=== PATIENT | female | born 1975 | race Caucasian/White ===

== ENCOUNTER 2017-06-29 18:26 | Emergency (ER) | payer MEDICAID, SELFPAY ==
[2017-06-29 18:26] VITALS: BP 138/113; PULSE 111; RESP 18; TEMP 37; O2SAT 98; BMI 34.5
[2017-06-29] MEDS: 0.9% Normal Saline 1,000 ML 999 ML IV (21:43)
[2017-06-29] MEDS: Ketorolac 30 MG/ML Syringe IV (21:43)
[2017-06-29] MEDS: DiphenhydrAMINE 25 MG Capsule 50 MG PO (21:43)
[2017-06-29] MEDS: proCHLORPERazine 10 MG/2 ML Vial IV (21:43)
[2017-06-29 22:02] VITALS: BP 132/84; PULSE 83; RESP 18; O2SAT 96
--- NOTE | 2017-06-29 22:16 | ED.VISSUMM ---
- ER Visit Summary Date of Service: 06/29/17 Chief Complaint: Headache History of Present Illness: The patient is a 41 F patient presenting for evaluation secondary to headache. Patient states she has been dealing with chronic back and neck pain, and now it has extended into her head causing a migraine. She describes it as a throbbing generalized pain associated with photophobia was not helped by Imitrex or Excedrin or Motrin. Patient denies any fevers recent head injuries. Review of systems otherwise negative. Physical Examination: Vital signs: Within normal limits General: Well-nourished well-developed no acute distress Head: Normocephalic atraumatic, no temporal artery tenderness or vesicular rash noted. No sinus tenderness to percussion. Eyes: PERRLA, EOMI. Direct funduscopy shows no evidence of hemorrhage or papilledema. Neck: Supple, no lymphadenopathy, no JVD no meningismus. Negative Brudzinski, Kernig, jolt, and heel strike Cardiovascular: Heart regular rate and rhythm no murmurs Respiratory: Lung sounds clear to auscultation bilaterally no respiratory distress Abdomen: Soft, nontender Extremities: Nontender, no edema Skin: Normal color, no rash, no evidence of petechia Neuro: Alert and oriented ?4, cranial nerves II through XII intact, normal strength, sensation Test Results: None indicated Emergency Department Course and Treatment: Patient presented secondary to headache. She was treated with Compazine Benadryl and Toradol. She had significant symptomatic improvement on repeat evaluation. Patient was discharged with continued conservative management at home. Disposition: Discharge Impression: Migraine headache This note was generated with [employer] dictation software. It may contain incorrect words, spelling, and punctuation that were not noted in review of the chart prior to signing ED Disposition - Plan for ED Patient: Disposition: Home or Assisted Living Chief Complaint: Headache Diagnosis: Migraine Instructions: ED Headache Migraine Referrals: Dionicio Armijo MD [Primary Care Provider] - As Needed
[2017-06-29 23:01] VITALS: PULSE 76; RESP 16; O2SAT 98
== END 2017-06-29 23:03 | disposition home or self-care (01) ==
PROVIDERS: Emergency Provider Emergency Medicine; Family Provider Family Medicine; PCP Family Medicine
DX: G43.909 Migraine, unspecified, not intractable, without status migrainosus (principal); M54.2 Cervicalgia; M54.9 Dorsalgia, unspecified; G89.29 Other chronic pain; Z79.899 Other long term (current) drug therapy
CPT/HCPCS: 96374; 96375; 99283; J7030; A4216

== ENCOUNTER 2017-07-19 09:19 | Emergency (ER) | payer MEDICAID, SELFPAY ==
[2017-07-19 09:20] VITALS: BP 89/55; PULSE 108; RESP 32; TEMP 36.3; O2SAT 98; BMI 38.9
--- NOTE | 2017-07-19 09:38 | RAD_ITS ---
STUDY: X-RAY CHEST REASON FOR EXAM: Female, 41 years old. Several day history of cough, fever and shortness of breath. TECHNIQUE: AP and lateral views of the chest. COMPARISON: Comparison is made with prior study dated November 01, 2016. FINDINGS: EKG electrodes are seen. The lungs are clear and expanded. There is no demonstrated pleural abnormality. Normal size heart. Normal mediastinum and cindy. Normal visualized pulmonary arteries. Normal visualized aortic arch and descending thoracic aorta. There is demineralization of the osseous structures. Normal visualized ribs, clavicles, and shoulders. There is no demonstrated abnormality of the visualized soft tissue structures of the upper abdomen. RAD/Chest PA and Lateral IMPRESSION: No acute abnormality is present. Electronically Signed: Julio C Prasad MD at 11:00 EDT Tel [phone], Service support ,
[2017-07-19 09:47] VITALS: PULSE 89; RESP 20
[2017-07-19] MEDS: Ipratropium/Albuterol Sulfate 3 ML AMPUL.NEB INHALATION (09:47)
[2017-07-19 10:00] LABS: Absolute Lymphocyte Count 1.95 X10^3/ul (0.83-4.51); Absolute Neutrophil Count 1.8 X10^3/uL (2.0-7.7); Basophil# 0.02 X10^3/uL; Basophil% 0.5 % (0-1); Eosinophil# 0.01 X10^3/uL; Eosinophils% 0.2 % (0-5); Hematocrit 40.3 % (37-47); Hemoglobin 13.3 g/dl (12.0-15.0); Lymphocyte # 1.95 X10^3/ul (4.0); Lymphocyte % 48.1 % (19-41); Mean Corpuscular Hgb 30.8 pg (27.0-32.0); Mean Corpuscular Volume 93.3 fL (81-99); Monocyte# 0.27 X10^3/uL; Monocyte% 6.7 % (0-10); Neutrophil % 44.5 % (47-70); Platelet Count 244 K/mm3 (150-450); RBC Distribution Width CV 14.3 % (11.6-14.6); RBC Distribution Width SD 48.8 fl (35.1-43.9); Red Blood Count 4.32 M/mm3 (4.2-5.4); White Blood Count 4.1 K/mm3 (4.4-11.0)
[2017-07-19 10:01] LABS: POSITIVE COUNT NO; POSITIVE DIFFERENTIAL NO; POSITIVE MORPHOLOGY NO
[2017-07-19] MEDS: 0.9% Normal Saline 1,000 ML 1000 ML IV (10:06)
[2017-07-19] MEDS: Ondansetron 4 MG/2 ML Vial IV (10:07)
[2017-07-19 10:09] VITALS: O2SAT 96
[2017-07-19 10:12] LABS: Anion Gap 13 (5-15); BUN 18 mg/dL (7-18); BUN/Creat Ratio 24.6 RATIO (10-20); Chloride 109 mmol/L (98-107); Creatinine, Serum 0.73 mg/dL (0.55-1.02); EST Glomerular Filtration Rate 94 mL/min (>60); Est Glom Filt Rate - Afr Amer 113 mL/min (>60); Estimated Creatinine Clearance 104.37 ml/min; Glucose 124 mg/dL (74-106); Sodium Level 141 mmol/L (136-145)
--- NOTE | 2017-07-19 10:28 | ED.RN ---
LACTIC ACID 2.[address] LAB. DR COLE AWARE
[2017-07-19 10:29] LABS: Lactic Acid 2.4 mmol/L (0.4-2.0)
--- NOTE | 2017-07-19 11:01 | ED.DCSUM_ITS ---
- ER Visit Summary Date of Service: 07/19/17 Chief Complaint: Cough, vomiting and diarrhea History of Present Illness: The patient is a [address] Armijo. She reports that she became ill 2 days ago. She has had subjective fever and chills. She has a sore throat that is 8 out of 10 severity. She has a cough is productive of yellowish green sputum without blood. She reports that she is mildly short of breath. She also reports that she has had vomiting and diarrhea. She reports that she is vomited approximately 12 times per day without blood in her emesis. She has had diarrhea approximately 12 times a day without blood in her stools or black tarry stools. States that she has a headache and generalized weakness as well. Physical Examination: Vitals: 97.4, 89/55, 108, 32, 90% on room air which is not hypoxic. General: Well-nourished and well-developed. Head: Normocephalic atraumatic. Neck: Supple, no lymphadenopathy. No JVD. Nontender. Cardiovascular: Tachycardic regular rhythm. No murmurs. Respiratory: Mild respiratory distress with tachypnea. Minimal and expiratory wheezing. Abdominal: Soft, mild diffuse tenderness to palpation, nondistended, normal bowel sounds. No guarding, rebound, or peritoneal signs. Back: Nontender. Extremities: Nontender, no edema. Skin: Normal color, no rash. Neurologic: Alert and oriented ?3. Cranial nerves II through XII are intact. Normal strength and sensation. Psych: Normal affect. Test Results: CBC is remarkable for a white count of 4.1 with 45 segmented neutrophils and 48 lymphocytes. Chem-7 is marked for potassium at 3.0, chloride 109, CO2 of 19, glucose of 124. Influenza was negative. Lactic acid is 2.4. Chest x-ray is normal. Emergency Department Course and Treatment: Patient was given 2 L of normal saline. She was given albuterol and Atrovent aerosol. She was given morphine and Zofran IV. She was given K-Dur p.o. She has had no vomiting or diarrhea while here. She was given a dose of Kenalog IM and Tessalon Perles p.o. Treatment Plan: Patient will be discharged with Zofran and Tessalon Perles. Instructed to follow-up with Dr. Armijo in 1-2 days if not improving. Return to the emergency department for any worsening symptoms. Disposition: To home in improved and stable condition. Impression:. URI. 2. Vomiting/diarrhea. 3. Hypokalemia. This note was generated with [email or web address] dictation software. It may contain incorrect words, spelling, and punctuation that were not noted in review of the chart prior to signing ED Disposition - Plan for ED Patient: Chief Complaint: Shortness of Breath Instructions: ED Upper Resp Infec No Abx Tx, ED Vomiting Diarrhea Nonspecific Ad Prescriptions: Ondansetron [Zofran Odt] 4 mg PO Q8H PRN PRN #10 tablet PRN Reason: Nausea Benzonatate [Tessalon Perle] 200 mg PO TID PRN PRN #20 capsule PRN Reason: Cough Referrals: Dionicio Armijo MD [Primary Care Provider] - 1-2 Days if not improving
[2017-07-19 11:37] VITALS: BP 128/78; PULSE 65; RESP 14; O2SAT 98
[2017-07-19] MEDS: Triamcinolone Acetonide 40 MG/ML Vial 80 MG IM (11:50)
[2017-07-19] MEDS: Benzonatate 100 MG Capsule 200 MG PO (11:50)
[2017-07-19 12:17] VITALS: BP 124/85; PULSE 74; RESP 16; O2SAT 98
[2017-07-19 13:56] LABS: Reflex Lactate? Y
== END 2017-07-19 12:18 | disposition home or self-care (01) ==
PROVIDERS: Emergency Provider Emergency Medicine; Family Provider Family Medicine; PCP Family Medicine
DX: J06.9 Acute upper respiratory infection, unspecified (principal); R11.2 Nausea with vomiting, unspecified; R19.7 Diarrhea, unspecified; E87.6 Hypokalemia; Z72.0 Tobacco use; Z79.899 Other long term (current) drug therapy
CPT/HCPCS: 71046; 80048; 83605; 85025; 87804; 94640; 96361; 96372; 96374; 96375; 99285; J7030; A4216; J2405

== ENCOUNTER 2017-09-21 11:04 | Emergency (ER) | payer MEDICAID, SELFPAY ==
[2017-09-21 11:04] VITALS: BP 129/87; PULSE 93; RESP 15; TEMP 35.7; O2SAT 99; BMI 31.4
--- NOTE | 2017-09-21 11:51 | ED.DCSUM_ITS ---
- ER Visit Summary Date of Service: 09/21/17 Chief Complaint: Headache History of Present Illness: The patient is a 42 F with a history of migraines. Patient states she developed mild headache last evening on the right eye that progressed to the right side of her head today. This is typical pattern for her migraines. Patient states she usually takes Imitrex but she is currently out of the medication. She denies any recent URI symptoms or head injury. Physical Examination: Vital signs are unremarkable. Patient's lying in a darkened room. She is in no acute distress. Head neck examination reveals pupils to be equal and reactive. She has no meningismus. Heart is regular rate and rhythm. Lung sounds are clear. Abdomen is soft and nontender. Neuro exam reveals normal strength and sensation throughout. Test Results: [] Emergency Department Course and Treatment: She was given subcu Imitrex. On repeat evaluation headache is improved but not resolved. She is requesting a second dose of Imitrex. This will be provided along with a prescription for 10 tabs of Imitrex. She is to follow-up with her PCP regarding further prescriptions for this medication. Treatment Plan: [] Disposition: Discharge Impression: Migraine, improved This note was generated with [employer] dictation software. It may contain incorrect words, spelling, and punctuation that were not noted in review of the chart prior to signing ED Disposition - Plan for ED Patient: Disposition: Home or Assisted Living Chief Complaint: Headache Instructions: ED Headache Migraine Prescriptions: Sumatriptan Succinate [Imitrex] 100 mg PO BID PRN PRN #10 tablet PRN Reason: Migraine Symptoms Referrals: Dionicio Armijo MD [Primary Care Provider] - 3-5 Days if not improving
[2017-09-21] MEDS: SUMAtriptan 6 MG/0.5 ML Vial SC ×2 (11:58→14:07)
--- NOTE | 2017-09-21 14:07 | ED.DEP ---
ED Disposition - Plan for ED Patient: Disposition: Home or Assisted Living Chief Complaint: Headache Instructions: ED Headache Migraine Prescriptions: Sumatriptan Succinate [Imitrex] 100 mg PO BID PRN PRN #10 tablet PRN Reason: Migraine Symptoms Referrals: Dionicio Armijo MD [Primary Care Provider] - 3-5 Days if not improving
[2017-09-21 14:32] VITALS: BP 133/83; PULSE 81; RESP 16; O2SAT 100
== END 2017-09-21 14:32 | disposition home or self-care (01) ==
PROVIDERS: Emergency Provider Emergency Medicine; Family Provider Family Medicine; PCP Family Medicine
DX: G43.909 Migraine, unspecified, not intractable, without status migrainosus (principal); I10 Essential (primary) hypertension; Z86.711 Personal history of pulmonary embolism; Z86.718 Personal history of other venous thrombosis and embolism; Z72.0 Tobacco use
CPT/HCPCS: 96372; 99282; J3030

== ENCOUNTER 2017-10-24 01:18 | Emergency (ER) | payer MEDICAID, SELFPAY ==
[2017-10-24 01:19] VITALS: BP 139/88; PULSE 106; RESP 17; TEMP 36.9; O2SAT 99; BMI 42.0
--- NOTE | 2017-10-24 01:45 | RAD_ITS ---
STUDY: X-RAY - RIGHT HAND REASON FOR EXAM: Female, 42 years old. Dogbite TECHNIQUE: 3 view(s) of the hand. COMPARISON: None. FINDINGS: The second, third, and fourth digits are obscured by rings. No fractures are seen. Joint spaces are intact. RAD/Hand Min 3 Views IMPRESSION: No acute osseous injury is visible. Electronically Signed: Dionicio Tamez MD at 3:21 EDT Tel , Service support ,
--- NOTE | 2017-10-24 02:08 | ED.RN ---
this rn gives pt dopg bite form to fill out, and pt is educated on dog bite form. pt reports she refuses to fill out form. kat jamil notified.
--- NOTE | 2017-10-24 02:15 | ED.VISSUMM ---
- ER Visit Summary Date of Service: 10/24/17 Chief Complaint: Dog bite right hand History of Present Illness: The patient is a 42 F that is Right hand dominant. No significant past medical history. Patient playing with her dog when the dog jumped up to grab something out of the ear and actually bit her in the right hand. This occurred around 330 Wednesday afternoon. She went to work. Today she is complaining of more swelling. And bruising. She denies any fever or discharge from the wound. Her tetanus is up-to-date. Physical Examination: Well-appearing middle-age female. Vital signs are stable afebrile. Exam is normal except right hand dorsum is bruising mild swelling and a very small less than a centimeter laceration from a dog bite. She has tenderness over the dorsum of the hand. There is no gross bony deformity. She has full flexion-extension of the right hand is able to open and close her hand. There is no signs of extensor tendon laceration. Nor any signs of a fracture. Right hand is neurovascular intact with cap refill, touch sensation and radial pulse. There is no lymphangitic streaking. No cellulitis or redness. No warmth. Test Results: X-ray of the right hand shows no acute abnormality. No fracture. Emergency Department Course and Treatment: We are going to attempt to get the patient's rings off she adamantly refuses to have any of the rings cut off since a personal emotional value to her. She will be placed on Keflex 4 times a day for 5 days. She reportedly has a penicillin anaphylactic allergy so I will not place her on penicillin. Ice and elevate. Watch for signs of infection. Motrin and limited [place] for pain. [place] given here and a prescription for 10 no refill. Treatment Plan: Ice and elevate. Motrin. [place] for pain. Disposition: Discharge Impression: Acute right hand dog bite with soft tissue injury and bruising This note was generated with [employer] dictation software. It may contain incorrect words, spelling, and punctuation that were not noted in review of the chart prior to signing ED Disposition - Plan for ED Patient: Chief Complaint: Bite Referrals: Dionicio Armijo MD [Primary Care Provider] -
--- NOTE | 2017-10-24 02:18 | ED.DEP ---
ED Disposition - Plan for ED Patient: Disposition: Home or Assisted Living Chief Complaint: Bite Instructions: ED Bite Dog Prescriptions: Cephalexin [Keflex] 500 mg PO Q6 #20 cap Hydrocodone/Acetaminophen [[place] 5-325 Tablet] 1 - 2 ea PO 4X/DAY PRN PRN 3 Days #12 tab PRN Reason: Pain Referrals: Dionicio Armijo MD [Primary Care Provider] - As Needed
[2017-10-24] MEDS: HYDROcodone Bitartrate/Apap 5/325 Tablet PO (02:26)
[2017-10-24] MEDS: Cephalexin 250 MG Capsule 500 MG PO (02:26)
[2017-10-24 02:30] VITALS: BP 130/80; PULSE 82; RESP 16; O2SAT 97
== END 2017-10-24 02:31 | disposition home or self-care (01) ==
PROVIDERS: Emergency Provider Emergency Medicine; Family Provider Family Medicine; PCP Family Medicine
DX: S61.451A Open bite of right hand, initial encounter (principal); M79.89 Other specified soft tissue disorders; W54.0XXA Bitten by dog, initial encounter; Y93.9 Activity, unspecified; Y92.9 Unspecified place or not applicable; Y99.9 Unspecified external cause status; Z72.0 Tobacco use
CPT/HCPCS: 73130; 99283

== ENCOUNTER 2017-12-12 01:17 | Emergency (ER) | payer MEDICAID, SELFPAY ==
[2017-12-12 01:17] VITALS: BP 130/81; PULSE 100; RESP 18; TEMP 37.2; O2SAT 99; BMI 33.1
--- NOTE | 2017-12-12 02:00 | ED.VISSUMM ---
- ER Visit Summary Date of Service: 12/12/17 Chief Complaint: [[place], neck pain] History of Present Illness: The patient is a 42 F [patient presents the emergency department with neck pain. She describes as bilateral muscle tightness. She states it started yesterday morning after she slept with her neck twisted sideways on the couch. She subsequently developed a left-sided headache and migraine and had one episode of vomiting this evening. No numbness or tingling no weakness no fevers or chills she is out of her Imitrex.] Physical Examination: [] Afebrile vital signs within acceptable limits WN WD NAD PERRL EOMI MMM NECK supple and nontender, no masses Normal strength and sensation of the upper extremities RRR no murmur rub or gallop, no peripheral edema, symmetric radial pulses CTAB no respiratory distress ABDOMEN is soft and nontender, normal bowel sounds, no distension, no rebound or guarding SKIN is warm and dry no rashes Alert and Oriented x3, CN II-XII in tact, no motor or sensory deficits, gait normal No lymphadenopathy Test Results: [] Emergency Department Course and Treatment: [Patient was given Toradol Valium and Zofran. Patient did feel improved but continued to have a headache. She was given in [place]. She will be discharged home with a prescription for tizanidine. At this time I do think she is safe for discharge and was encouraged to follow-up with her primary care provider. She was given precautions for which to return.] Treatment Plan: [] Disposition: [Discharge] Impression: [Migraine, neck spasm] This note was generated with [employer] dictation software. It may contain incorrect words, spelling, and punctuation that were not noted in review of the chart prior to signing ED Disposition - Plan for ED Patient: Chief Complaint: Headache Referrals: Dionicio Armijo MD [Primary Care Provider] -
[2017-12-12] MEDS: Ondansetron ODT 4 MG Tablet PO (02:05)
[2017-12-12] MEDS: Ketorolac 60 MG/2 ML Vial IM (02:05)
[2017-12-12] MEDS: diazePAM 2 MG Tablet 4 MG PO (02:21)
--- NOTE | 2017-12-12 02:45 | ED.DEP ---
ED Disposition - Plan for ED Patient: Chief Complaint: Headache Instructions: ED Headache Migraine, ED Spasm Neck No Injury Prescriptions: Tizanidine HCl [Zanaflex] 4 mg PO Q8H PRN PRN #6 tablet PRN Reason: Muscle Spasm Referrals: Dionicio Armijo MD [Primary Care Provider] - 3-5 Days
[2017-12-12] MEDS: HYDROcodone Bitartrate/Apap 5/325 Tablet PO (02:53)
[2017-12-12 02:55] VITALS: BP 120/84; BP 130/74; PULSE 78; PULSE 93; RESP 14; RESP 16; O2SAT 97; O2SAT 98
== END 2017-12-12 03:00 | disposition home or self-care (01) ==
PROVIDERS: Emergency Provider Emergency Medicine; Family Provider Family Medicine; PCP Family Medicine
DX: G43.909 Migraine, unspecified, not intractable, without status migrainosus (principal); M62.838 Other muscle spasm; M19.90 Unspecified osteoarthritis, unspecified site; M54.9 Dorsalgia, unspecified; G89.29 Other chronic pain; E66.9 Obesity, unspecified; Z72.0 Tobacco use; Z79.899 Other long term (current) drug therapy
CPT/HCPCS: 96372; 99283

== ENCOUNTER 2018-02-20 01:13 | Emergency (ER) | payer MEDICAID, SELFPAY ==
[2018-02-20 01:16] VITALS: BP 146/99; PULSE 73; RESP 18; TEMP 36.9; O2SAT 99; BMI 30.9
--- NOTE | 2018-02-20 01:40 | ED.DCSUM_ITS ---
- ER Visit Summary Date of Service: 02/20/18 Chief Complaint: [] Nausea vomiting and diarrhea History of Present Illness: The patient is a 42 F with the above for the last 2 days. She had 30 episodes of vomiting per patient. She had diarrhea every 20 minutes for last couple days. No sick contacts. No bad food exposures. No recent antibiotics. She has intermittent abdominal cramps. She was sitting on the toilet having diarrhea at work this evening and had a syncopal episode. She thinks she vagal. No injury. She denies any significant abdominal pain but is having cramps. No home treatment. She said she is keeping up with water. She has decreased food intake Physical Examination: [] Vital signs reviewed General: Well-nourished well-developed Head: Normocephalic atraumatic Eyes: Pupils equal round and reactive to light extraocular movements intact ENT: TMs clear no hemotympanum no trauma Neck: Nontender full range of motion Cardiovascular: Regular rate rhythm no murmurs normal S1-S2 Respiratory: No distress clear to auscultation bilaterally chest nontender Abdomen: Soft nontender nondistended normal bowel sounds no masses Back: Nontender no CVA tenderness Extremities: Nontender active range of motion ?4 extremities no trauma Skin: Normal color no trauma Neuro alert oriented cranial nerves II through XII intact normal strength sensation reflexes Test Results: [] Emergency Department Course and Treatment: [] Patient declined IV fluids or IV. Electrolytes obtained. Given oral Zofran intramuscular Toradol and oral Imodium. [place] much better after treatment. Chemistries normal except chloride 113. She will be discharged with Zofran. Will use [id number] Imodium and ibuprofen. She is resting comfortably. I think she has gastroenteritis and I do not think she needs further lab work or imaging. She will return if she worsens Treatment Plan: [] Disposition: [] Impression: [] Nausea vomiting diarrhea with abdominal cramping This note was generated with [employer] dictation software. It may contain incorrect words, spelling, and punctuation that were not noted in review of the chart prior to signing ED Disposition - Plan for ED Patient: Chief Complaint: Nausea/Vomiting/Diarrhea Referrals: Dionicio Armijo MD [Primary Care Provider] -
[2018-02-20] MEDS: Ketorolac 60 MG/2 ML Vial IM (01:51)
[2018-02-20] MEDS: Ondansetron ODT 4 MG Tablet 8 MG PO (01:51)
[2018-02-20 02:17] LABS: Anion Gap 7 (5-15); BUN 18 mg/dL (7-18); BUN/Creat Ratio 23.1 RATIO (10-20); Calcium,Total 8.8 mg/dL (8.5-10.1); Chloride 113 mmol/L (98-107); Creatinine, Serum 0.78 mg/dL (0.55-1.02); EST Glomerular Filtration Rate 87 mL/min (>60); Est Glom Filt Rate - Afr Amer 105 mL/min (>60); Estimated Creatinine Clearance 96.71 ml/min; Glucose 109 mg/dL (74-106); Potassium 3.6 mmol/L (3.5-5.1); Sodium Level 143 mmol/L (136-145)
[2018-02-20] MEDS: Loperamide 2 MG Capsule 4 MG PO (02:19)
--- NOTE | 2018-02-20 02:32 | ED.DEP ---
ED Disposition - Plan for ED Patient: Chief Complaint: Nausea/Vomiting/Diarrhea Instructions: ED Diet Vomiting Diarrhea Prescriptions: Ondansetron [Zofran Odt] 4 mg PO Q8H PRN PRN #10 tab PRN Reason: Nausea Referrals: Dionicio Armijo MD [Primary Care Provider] -
== END 2018-02-20 02:47 | disposition home or self-care (01) ==
PROVIDERS: Emergency Provider Emergency Medicine; Family Provider Family Medicine; PCP Family Medicine
DX: R11.2 Nausea with vomiting, unspecified (principal); R19.7 Diarrhea, unspecified; R55 Syncope and collapse; E66.9 Obesity, unspecified; Z72.0 Tobacco use; Z86.718 Personal history of other venous thrombosis and embolism; Z86.711 Personal history of pulmonary embolism
CPT/HCPCS: 36415; 80048; 96372; 99283

== ENCOUNTER 2018-03-31 09:46 | Emergency (ER) | payer MEDICAID, SELFPAY ==
[2018-03-31 09:47] VITALS: BP 137/84; PULSE 93; RESP 20; TEMP 36.4; O2SAT 100; BMI 30.9
[2018-03-31] MEDS: Ondansetron ODT 4 MG Tablet PO (10:29)
[2018-03-31] MEDS: Ketorolac 60 MG/2 ML Vial IM (10:29)
[2018-03-31] MEDS: SUMAtriptan 6 MG/0.5 ML Vial SC (10:30)
[2018-03-31] MEDS: morphine 8 MG/ML Syringe SC (10:30)
--- NOTE | 2018-03-31 10:34 | ED.DEP ---
ED Disposition - Plan for ED Patient: Chief Complaint: Back Instructions: ED Spasm Back No Trauma Prescriptions: Naproxen [Naprosyn] 500 mg PO BID PRN #20 tab Cyclobenzaprine [Flexeril] 10 mg PO TID PRN #20 tab PRN Reason: Muscle Spasm Referrals: Dionicio Armijo MD [Primary Care Provider] -
--- NOTE | 2018-03-31 10:35 | ED.DCSUM_ITS ---
- ER Visit Summary Date of Service: 03/31/18 Chief Complaint: [] Lumbar back pain for days history of same History of Present Illness: The patient is a 42 F [] has a long history of lumbar back disorder she indicates she had prior previous evaluations by pain management lumbar back injections MRIs physical therapy etc., she indicates she is suffered from the condition to where she does not wish to be under pain management prefers to just manage things as needed. She has no other complaints. She has no fever no cough no trouble with bowel bladder habits. She indicates at work due to the holiday she is been very busy lifting boxes bending over and that she believes exacerbate her lumbar back condition she has no meds at home, in addition she has history of migraine headache disorder and she is suffering from a migraine usually takes Imitrex, because she had no medicines at home she came to the emergency Physical Examination: [] 137/84, General, no distress resting comfortably HEENT is generally unremarkable The neck is supple no adenopathy Cardiovascular, regular rate and rhythm Lungs, clear bilateral Abdomen, soft nontender Back there is a vague diffuse discomfort that is nonfocal, there is no contusion or bruising or CVA tenderness she denies any bowel or bladder complaints numbness weakness or paresthesias Extremities, no clubbing cyanosis or edema Neurologic, awake alert answering questions appropriately moving all 4 extremities, she is able to stand she can walk she can heel raise toe raise knee bend there is no signs of motor or sensory deficit abnormality and she assures me this is the chronic pain she suffered long-term, there is no signs of cauda equina or any other acute condition Test Results: [] Emergency Department Course and Treatment: [] Discussed the broad differential the patient assures me she simply wants pain control this is typical of her usual back condition to be exacerbated by the heavy physical work she is been doing at work, at this time she is treated with morphine Toradol, she is also been asked to be given Imitrex which usually takes for her headaches, she will be discharged on Naprosyn and Flexeril she replaced off work and follow with her family doctor for further management return for change in symptoms Treatment Plan: [] Disposition: [] Home stable Impression: [] Acute recurrent lumbar back pain This note was generated with [employer] software. It may contain incorrect words, spelling, and punctuation that were not noted in review of the chart prior to signing ED Disposition - Plan for ED Patient: Chief Complaint: Back Referrals: Dionicio Armijo MD [Primary Care Provider] -
[2018-03-31 11:12] VITALS: BP 143/95; PULSE 87; RESP 16; O2SAT 99
== END 2018-03-31 11:13 | disposition home or self-care (01) ==
LOC: ED 10:39
PROVIDERS: Emergency Provider Emergency Medicine; Family Provider Family Medicine; PCP Family Medicine
DX: M54.5 Low back pain (principal); G43.909 Migraine, unspecified, not intractable, without status migrainosus; Z79.899 Other long term (current) drug therapy
CPT/HCPCS: 96372; 99282; J3030

== ENCOUNTER 2018-05-08 00:30 | Emergency (ER) | payer MEDICAID, SELFPAY ==
[2018-05-08 00:32] VITALS: BP 134/94; PULSE 114; RESP 18; TEMP 37.8; O2SAT 96; BMI 32.2
--- NOTE | 2018-05-08 00:57 | ED.DCSUM_ITS ---
- ER Visit Summary Date of Service: 05/08/18 Chief Complaint: [] Scalp burn History of Present Illness: The patient is a 42 F patient stated she burned her scalp while using hair dye approximately 5 days ago. She is having pain and itching to her scalp from the burn. She is using topical steroid with no r elief. She is unsure if that would help. She woke up the next day with the symptoms. It is continuous. It is located diffusely in her scalp. Current severity is mild. Worsened by touching. Relieved by nothing. The patient also states she has upper respiratory symptoms including mild nonproductive cough and sore throat. She has muscle aches. No sick contacts. Current severity is mild. Worsened by swallowing. No home treatment. ROS General: Denies fever, chills, sweats Eyes: Denies visual changes, blurred vision, double vision ENT: Positive sore throat and sore lymph nodes in her neck Cardiovascular: Denies chest pain, palpitations, heart racing Respiratory: Denies dyspnea, sputum, dyspnea on exertion, orthopnea,PND GI: Denies abdominal pain, nausea, vomiting, diarrhea, constipation, melena : Denies dysuria, hematuria, frequency Musculoskeletal: Denies myalgias, arthralgias, neck pain, back pain Skin: Chemical burn to scalp Neuro: Denies headache, weakness, paresthesia Psych: Denies depression, anxiety Endo: Denies polyuria, polydipsia, polyphagia Heme: Denies easy bruising, easy bleeding, lymphadenopathy Allergy: Denies hives, swelling Physical Examination: [] Vital signs reviewed General: Well-nourished well-developed Head: Normocephalic atraumatic Eyes: Pupils equal round and reactive to light extraocular movements intact ENT: TMs clear no hemotympanum no trauma. Mild pharyngeal erythema with 2+ tonsils no exudate. Neck: Nontender full range of motion Cardiovascular: Regular rate rhythm no murmurs normal S1-S2 Respiratory: No distress clear to auscultation bilaterally chest nontender Abdomen: Soft nontender nondistended normal bowel sounds no masses Back: Nontender no CVA tenderness Extremities: Nontender active range of motion ?4 extremities no trauma Skin: Mild chemical burn to the scalp. Worse on the right lateral side. No evidence of cellulitis. Neuro alert oriented cranial nerves II through XII intact normal strength s ensation reflexes Test Results: [] Emergency Department Course and Treatment: [] Patient given azithromycin and will continue this for her respiratory illness. She is allergic to penicillin so it should help her if she has strep throat. She was given Silvadene for her scalp. Given Tylenol as she has a low-grade temp. Treatment Plan: [] Disposition: [] Impression: [] Upper respiratory infection Pharyngitis Chemical burn to scalp This note was generated with [employer]ation software. It may contain incorrect words, spelling, and punctuation that were not noted in review of the chart prior to signing ED Disposition - Plan for ED Patient: Chief Complaint: Rash Referrals: Dionicio Armijo MD [Primary Care Provider] -
--- NOTE | 2018-05-08 00:57 | ED.DEP ---
ED Disposition - Plan for ED Patient: Disposition: Home or Assisted Living Chief Complaint: Rash Instructions: ED Burn Chemical Prescriptions: Azithromycin 250 mg PO DAILY 4 Days #4 tab Referrals: Dionicio Armijo MD [Primary Care Provider] -
[2018-05-08] MEDS: Azithromycin 250 MG Tablet 500 MG PO (01:10)
[2018-05-08] MEDS: Acetaminophen 500 MG Tablet 1000 MG PO (01:10)
[2018-05-08] MEDS: Silver Sulfadiazine 1% Crm 50 gm Bottle 1 APPLIC TOPICAL (01:11)
[2018-05-08 01:16] VITALS: BP 127/82; PULSE 95; RESP 16; O2SAT 100
== END 2018-05-08 01:18 | disposition home or self-care (01) ==
PROVIDERS: Emergency Provider Emergency Medicine; Family Provider Family Medicine; PCP Family Medicine
DX: J06.9 Acute upper respiratory infection, unspecified (principal); J02.9 Acute pharyngitis, unspecified; T49.4X1A Poisoning by keratolytics, keratoplastics, and other hair treatment drugs and preparations, accidental (unintentional), initial encounter; T20.45XA Corrosion of unspecified degree of scalp [any part], initial encounter; Y93.9 Activity, unspecified; Y92.9 Unspecified place or not applicable; G43.909 Migraine, unspecified, not intractable, without status migrainosus; Z87.01 Personal history of pneumonia (recurrent); Z86.718 Personal history of other venous thrombosis and embolism; Z86.711 Personal history of pulmonary embolism; Z72.0 Tobacco use
CPT/HCPCS: 99283

== ENCOUNTER 2018-08-10 11:27 | Emergency (ER) | payer MEDICAID, SELFPAY ==
[2018-08-10 11:29] VITALS: BP 156/92; PULSE 94; RESP 17; TEMP 36.8; O2SAT 100; BMI 32.3
--- NOTE | 2018-08-10 11:41 | ED.VISSUMM ---
- ER Visit Summary Date of Service: 08/10/18 Chief Complaint: Headache History of Present Illness: The patient is a 43 F with a headache. She has a history of migraines and muscle spasms. She said the pain started in her neck and back and is radiating to her head. This came on gradually. She is prescribed Imitrex and baclofen but could not fill those prescriptions due to some insurance issues. She has not taken anything for her symptoms. No new or different symptoms like trauma, change in mental status, or fever. Physical Examination: Afebrile and vital signs unremarkable. Patient is alert and oriented. Head and neck are atraumatic. Cranial nerves grossly intact. HEENT exam unremarkable. Strength and sensation normal. Nonfocal exam. Skin appears normal. Test Results: None indicated Emergency Department Course and Treatment: There is no indication for imaging or other diagnostic testing. I believe the patient is appropriate for symptomatic treatment. Imitrex has worked in the past. She would also like something for a muscle relaxant. She was also treated with Norflex. Patient had improvement of her symptoms and will be discharged for outpatient follow-up. Treatment Plan: As above Disposition: Discharge Impression: 1. Acute cephalgia This note was generated with [employer] dictation software. It may contain incorrect words, spelling, and punctuation that were not noted in review of the chart prior to signing ED Disposition - Plan for ED Patient: Instructions: ED Headache Migraine Referrals: Dionicio Armijo MD [Primary Care Provider] -
[2018-08-10] MEDS: SUMAtriptan 6 MG/0.5 ML Vial SC (11:48)
[2018-08-10] MEDS: Orphenadrine 60 MG/2 ML Ampul IM (11:48)
== END 2018-08-10 12:40 | disposition home or self-care (01) ==
LOC: ED 12:37
PROVIDERS: Emergency Provider Emergency Medicine; Family Provider Family Medicine; PCP Family Medicine
DX: R51 Headache (principal); M62.838 Other muscle spasm; Z72.0 Tobacco use
CPT/HCPCS: 96372; 99282; J3030

== ENCOUNTER 2018-08-11 17:16 | Emergency (ER) | payer MEDICAID, SELFPAY ==
[2018-08-10 11:29] VITALS: BMI 32.3
[2018-08-11 17:17] VITALS: BP 127/73; PULSE 89; RESP 17; TEMP 36.8; O2SAT 97; BMI 32.5
[2018-08-11 17:25] VITALS: BP 107/26; PULSE 81; RESP 16; O2SAT 99
--- NOTE | 2018-08-11 17:44 | CT_ITS ---
STUDY: CT ABDOMEN AND PELVIS WITHOUT CONTRAST REASON FOR EXAM: Female, 43 years old. Left flank pain. History of endometrial cancer. RADIATION DOSAGE (If Supplied By Facility): CTDIvol = ( 16.59 ) mGy, DLP = ( 986.31 ) mGycm TECHNIQUE: Transaxial images were obtained from the dome of the diaphragm to the symphysis pubis without oral contrast, and without intravenous contrast. Sagittal and coronal images were reconstructed. Individualized dose optimization techniques were used for this CT. COMPARISON: December 30, 2016. FINDINGS: The visualized lung bases are unremarkable. The visualized portions of the heart are within normal limits. Normal liver. Normal gallbladder and extrahepatic biliary system. Normal spleen. Normal pancreas. Normal bilateral adrenal glands. 2 mm calcification lower pole of the right kidney. Other 1 mm sized calcifications are also noted. There is no mass or hydronephrosis. Normal right ureter. There are two 3 mm nonobstructing calculi in lower pole calyces. A 1 mm calcification is seen in the mid kidney. There is no mass or hydronephrosis. Normal left ureter. Normal visualized stomach. Normal small intestine. Normal colon. The appendix is visualized and appears normal. Normal abdominal aorta. Normal inferior vena cava. Normal retroperitoneum. Normal urinary bladder. Status post hysterectomy. The vaginal cuff is unremarkable. No pelvic lymphadenopathy or mass. No free air or free fluid is seen within the peritoneal cavity. Normal abdominal wall. Normal osseous structures. CT/Abdomen/Pelvis without Cont IMPRESSION: Small bilateral renal calculi without evidence for obstruction. Otherwise normal CT of the abdomen and pelvis. Electronically Signed: Ruben Luis DO at 18:56 EDT Tel [phone], Service support ,
--- NOTE | 2018-08-11 17:47 | ED.DCSUM_ITS ---
- ER Visit Summary Date of Service: 08/11/18 Chief Complaint: Left flank pain History of Present Illness: The patient is a 43 F with left flank pain that came on suddenly today. Patient had similar symptoms in the past with kidney stones. She took some Aleve, but it did not help. Patient has urinary frequency and dysuria. No bleeding. BANKRUPTCY PARALEGAL symptoms. Nausea but no other GI symptoms. History of smoking. Physical Examination: Afebrile and vital signs unremarkable. Alert and martha ented. No acute distress. Heart regular. Lungs clear. Abdomen soft and nontender. Left CVA tender to palpation. Skin appears normal. Test Results: CT, labs, urine pending. Emergency Department Course and Treatment: Patient treated with Toradol, Zofran, fluids while awaiting results. CBC unremarkable. Potassium 3.4 and chloride 109. Urinalysis showed no sign of infection or bleeding. test was negative. CT showed small bilateral renal calculi but nothing obstructing. No other acute issues. Patient is appropriate for outpatient care. Prescription for naproxen and Zofran. Follow-up with urology as needed. Treatment Plan: As above Disposition: Discharge Impression: 1. Left flank pain This note was generated with [employer] dictation software. It may contain incorrect words, spelling, and punctuation that were not noted in review of the chart prior to signing ED Disposition - Plan for ED Patient: Referrals: Dionicio Armijo MD [Primary Care Provider] -
[2018-08-11 17:57] LABS: Red Blood Cells-Urine 0 SEEN /hpf (0-5)
[2018-08-11 18:01] LABS: Color, Urine Yellow (Yellow); Glucose, Dipstick Normal (Normal); Ketone-Dipstick Negative (Negative); Leukocyte Esterase-Dipstick 100 /ul (Negative); Nitrite-Dipstick Negative (Negative); Occult Blood-Urine 10 /ul (Negative); Protein-Dipstick Negative (Negative); Urine Bilirubin Dipstick Negative (Negative); Urine Clarity Clear (Clear); Urine Urobilinogen Normal (Normal)
[2018-08-11 18:04] LABS: Internal QC Validated? YES +Cl - CLEAR BKGD; Pregnancy, Urine Negative Negative
[2018-08-11 18:08] LABS: Mucous, Urine RARE /hpf (<or=2+); Squamous Epithelial Cells - UA 0-5 SEEN /hpf (5-10); White Blood Cells 0-5 SEEN /hpf (0-5)
[2018-08-11 18:09] LABS: Bacteria RARE /hpf (None Seen)
[2018-08-11] MEDS: Ondansetron 4 MG/2 ML Vial IV (18:16)
[2018-08-11] MEDS: Ketorolac 30 MG/ML Syringe IV (18:16)
[2018-08-11] MEDS: 0.9% Normal Saline 1,000 ML 1000 ML IV (18:16)
[2018-08-11 18:19] VITALS: TEMP 36.9
[2018-08-11 18:22] LABS: Absolute Lymphocyte Count 2.74 X10^3/ul (0.83-4.51); Absolute Neutrophil Count 3.4 X10^3/uL (2.0-7.7); Basophil# 0.02 X10^3/uL; Basophil% 0.3 % (0-1); Eosinophil# 0.13 X10^3/uL; Eosinophils% 1.9 % (0-5); Hematocrit 37.5 % (37-47); Hemoglobin 12.3 g/dl (12.0-15.0); Lymphocyte # 2.74 X10^3/ul (4.0); Lymphocyte % 40.5 % (19-41); Mean Corp Hgb Conc 32.8 g/gl (32-36); Mean Corpuscular Hgb 31.3 pg (27.0-32.0); Mean Corpuscular Volume 95.4 fL (81-99); Mean Platelet Vol. 9.9 fl (6.2-12.0); Monocyte# 0.51 X10^3/uL; Monocyte% 7.5 % (0-10); Neutrophil # 3.36 X10^3/uL (2.7-7.7); Neutrophil % 49.7 % (47-70); POSITIVE COUNT NO; POSITIVE DIFFERENTIAL NO; POSITIVE MORPHOLOGY NO; Platelet Count 272 K/mm3 (150-450); RBC Distribution Width CV 14.4 % (11.6-14.6); RBC Distribution Width SD 50.2 fl (35.1-43.9); Red Blood Count 3.93 M/mm3 (4.2-5.4); White Blood Count 6.8 K/mm3 (4.4-11.0)
[2018-08-11 18:33] LABS: Anion Gap 8 (5-15); BUN 13 mg/dL (7-18); BUN/Creat Ratio 19.6 RATIO (10-20); Calcium,Total 8.7 mg/dL (8.5-10.1); Chloride 109 mmol/L (98-107); Creatinine, Serum 0.66 mg/dL (0.55-1.02); EST Glomerular Filtration Rate 104 mL/min (>60); Est Glom Filt Rate - Afr Amer 126 mL/min (>60); Estimated Creatinine Clearance 109.08 ml/min; Glucose 102 mg/dL (74-106); Potassium 3.4 mmol/L (3.5-5.1); Sodium Level 141 mmol/L (136-145)
--- NOTE | 2018-08-11 19:32 | ED.DEP ---
ED Disposition - Plan for ED Patient: Instructions: ED Flank Pain Uncertain Cause Prescriptions: Ondansetron [Zofran Odt] 4 mg PO Q8H PRN PRN #10 tab PRN Reason: Nausea Naproxen [Naprosyn] 500 mg PO BID PRN #20 tab Referrals: Dionicio Armijo MD [Primary Care Provider] - Jeff Almaguer MD [STAFF PHYSICIAN] - As Needed
[2018-08-11] MEDS: HYDROcodone Bitartrate/Apap 5/325 Tablet PO (19:42)
[2018-08-11 19:51] VITALS: RESP 16
== END 2018-08-11 19:52 | disposition home or self-care (01) ==
PROVIDERS: Emergency Provider Emergency Medicine; Family Provider Family Medicine; PCP Family Medicine
DX: R10.9 Unspecified abdominal pain (principal); N20.0 Calculus of kidney; R30.0 Dysuria; R35.0 Frequency of micturition; R11.0 Nausea; Z87.442 Personal history of urinary calculi; Z87.891 Personal history of nicotine dependence
CPT/HCPCS: 74176; 80048; 81001; 81025; 85025; 96361; 96374; 96375; 99285; A4216; J2405

== ENCOUNTER 2018-10-13 23:32 | Emergency (ER) | payer MEDICAID, SELFPAY ==
[2018-10-13 23:33] VITALS: BP 117/86; PULSE 90; RESP 16; TEMP 36.2; O2SAT 100; BMI 29.5
--- NOTE | 2018-10-13 23:51 | ED.VIS.GEN ---
History of Present Illness Chief Complaint: Headache Narrative: Patient is a 43-year-old female who presents with a migraine. She has a history of migraine headaches and sees neurology. Her current headache started about 1 PM today. It gradually worsened through the day. She has had some intermittent nausea and dry heaving which is typical of her headaches. However she has been able to drink some Sprite. She also complains of muscle spasm on the right side of her neck which is also a common problem for her and believes it is contributing to her headache. She has used Imitrex in the past but is out of this and needs a refill. Past Medical History - Allergies and Home Meds Allergies/Adverse Reactions: Allergies adhesive tape Allergy (Verified 10/13/18 23:35) Swelling Penicillins Allergy (Verified 10/13/18 23:35) Anaphylaxis diphenhydramine HCl [From Benadryl] Adverse Reaction (Verified 10/13/18 23:35) IV route causes panic attack. can take po Primary Care Physician: Dionicio Armijo MD [Primary Care Provider] - Past Medical History: - - Migraines Surgical History: hysterectomy - GURPREET with BSO for cancer Smoking Status: Current every day smoker - Family History Maternal Family History: Reports: No pertinent history Paternal Family History: Reports: No pertinent history Review of Systems All systems negative except as indicated General: Denies: Fever Cardiovascular: Denies: Chest pain Respiratory: Denies: Dyspnea Gastrointestinal: Reports: Nausea, Vomiting Neurological: Reports: Headache Physical Exam Vital Signs/Narrative: Vital Signs Temp Pulse Resp BP Pulse Ox 10/13/18 23:33 97.2 F L 90 16 117/86 H 100 General: - - Patient dry heaving 1 AM at the room Head: Normocephalic Eyes: EOMI ENT: Moist mucous membranes Neck: Supple, - - Right sided paraspinal neck tenderness Cardiovascular: Regular rate, Regular rhythm Respiratory: No distress, CTA bilaterally Abdomen: Soft, Nontender, Nondistended Skin: Normal color Neurological: Alert, Normal Strength, Normal Sensation Psychological: Normal affect Diagnostic/Tx/Re-eval - Medical Decision Making Patient does not want an IV and will are all IM medications. She states she normally does well with Imitrex and a muscle relaxant. She was given IM Imitrex, IM Norflex. She was also given IM Toradol for pain and Zofran ODT for nausea. Patient feels 100% better on reevaluation. She was discharged to follow-up as an outpatient. ED Disposition - Plan for ED Patient: Disposition: [place] [facility] Diagnosis: Migraine, Muscle spasms of neck Instructions: ED Cephalgia Unspecified Referrals: Dionicio Armijo MD [Primary Care Provider] -
[2018-10-14] MEDS: Ondansetron ODT 4 MG Tablet PO (00:07)
[2018-10-14] MEDS: Ketorolac 60 MG/2 ML Vial IM (00:07)
[2018-10-14] MEDS: Orphenadrine 60 MG/2 ML Ampul IM (00:07)
[2018-10-14] MEDS: SUMAtriptan 6 MG/0.5 ML Vial SC (00:07)
[2018-10-14 00:49] VITALS: BP 125/78; PULSE 73; RESP 16; O2SAT 98
== END 2018-10-14 00:51 | disposition home or self-care (01) ==
PROVIDERS: Emergency Provider Emergency Medicine; Family Provider Family Medicine; PCP Family Medicine
DX: G43.909 Migraine, unspecified, not intractable, without status migrainosus (principal); M62.838 Other muscle spasm; F17.200 Nicotine dependence, unspecified, uncomplicated; Z79.899 Other long term (current) drug therapy; Z88.8 Allergy status to other drugs, medicaments and biological substances; Z88.0 Allergy status to penicillin; Z90.710 Acquired absence of both cervix and uterus
CPT/HCPCS: 96372; 99282; J3030

== ENCOUNTER 2019-02-09 21:39 | Emergency (ER) | payer SELFPAY ==
[2019-02-09 21:42] VITALS: BP 114/79; PULSE 106; RESP 18; TEMP 36.6; O2SAT 95; BMI 34.6
[2019-02-09 21:47] VITALS: RESP 18
[2019-02-09] MEDS: cycloBENZAPRine HCl 10 MG Tablet PO (22:27)
--- NOTE | 2019-02-09 22:36 | ED.DCSUM_ITS ---
History of Present Illness Chief Complaint: Other, Pain/Inj Narrative: Patient presenting for evaluation secondary to a fall. Patient states that prior to going to work today her dog tripped her. She reports that she fell on an outstretched right hand. She denies hitting her head or loss of consciousness. She is had a gradual onset of pain in her neck and thoracic back. No numbness or weakness. No bowel or bladder incontinence. Patient states that the pain is worse with palpation and movement, and specifically with lifting her arms above her head. Review of systems otherwise negative. Past Medical History - Allergies and Home Meds Allergies/Adverse Reactions: Allergies adhesive tape Allergy (Verified 02/09/19 21:42) Swelling Penicillins Allergy (Verified 02/09/19 21:42) Anaphylaxis diphenhydramine HCl [From Benadryl] Adverse Reaction (Verified 02/09/19 21:42) IV route causes panic attack. can take po Primary Care Physician: Dionicio Armijo MD [Primary Care Provider] - Past Medical History: None Surgical History: hysterectomy - GURPREET with BSO for cancer Smoking Status: Current every day smoker - Family History Maternal Family History: Reports: No pertinent history Paternal Family History: Reports: No pertinent history Review of Systems All systems negative except as indicated Musculoskeletal: Reports: Neck pain, Back pain Neurological: Denies: Weakness, Parasthesia Physical Exam Vital Signs/Narrative: Vital Signs Temp Pulse Resp BP Pulse Ox 02/09/19 21:47 18 02/09/19 21:42 98 F 106 H 18 114/79 95 Inital Vital Signs reviewed: Yes General: Well nourished, Well developed Head: Normocephalic, Atraumatic Eyes: Perrl, EOMI ENT: TM's clear, No hemotympanum or drainage, No trauma Neck: Full ROM, Paraspinal Tenderness - Right paraspinal Cardiovascular: Regular rate, Regular rhythm, No murmurs Respiratory: No distress, CTA bilaterally, Chest nontender Abdomen: Soft, Nontender, Nondistended, Normal bowel sounds Back: - - There is some midline thoracic spine tenderness as well as right-sided paraspinal tenderness in the thoracic spine. Skin: Normal color, No rash Neurological: Alert, Oriented x3, Cranial nerves II-XII grossly intact, Normal Strength, Normal Sensation, Normal DTR Psychological: Normal affect Diagnostic/Tx/Re-eval - Medical Decision Making Patient presented secondary to a fall with back pain. I offer the patient's Toradol and Flexeril. Patient stated that she has been taking ibuprofen all day. I then offered her Tylenol, she states she is also been taking Tylenol. X -rays were obtained which were found to be negative by my personal review is fell as radiology. Patient was tearful upon my reevaluation, stating how much pain she was then. She will be given a single oxycodone in the emergency department. Patient will be discharged with a course of NSAID analgesia and muscle relaxants. Disposition: Home ED Disposition - Plan for ED Patient: Disposition: Home or Assisted Living Diagnosis: Strain of thoracic back region Instructions: Thoracic Strain Prescriptions: Diflunisal [Dolobid] 500 mg PO BID #20 tab Prescription Printed cycloBENZAPRine HCl [Flexeril] 10 mg PO TID PRN #20 tab PRN Reason: Muscle Spasm Prescription Printed Referrals: Dionicio Armijo MD [Primary Care Provider] - 5-7 Days
--- NOTE | 2019-02-09 22:40 | RAD_ITS ---
STUDY: X-RAY - THORACIC SPINE REASON FOR EXAM: Female, 43 years old. Upper thoracic pain, injury. TECHNIQUE: 3 view(s) of the thoracic spine were obtained. COMPARISON: 19 July 2017 FINDINGS: Normal kyphosis of the thoracic spine. There is no substantial scoliosis. There is multilevel endplate spondylosis of the thoracic vertebrae. Normal disc space heights. The soft tissue structures are unremarkable. RAD/Thoracic Spine 3 Views IMPRESSION: Mid thoracic endplate degenerative changes and mild decreased disc space with otherwise no evidence of definitive compression deformity or malalignment. Electronically Signed: Melo Womack DO at 22:50 EDT , Service support ,
[2019-02-09] MEDS: Acetaminophen 500 MG Tablet 1000 MG PO (22:48)
[2019-02-09] MEDS: oxyCODONE 5 MG Tablet PO (23:30)
[2019-02-09 23:31] VITALS: RESP 18
== END 2019-02-09 23:33 | disposition home or self-care (01) ==
PROVIDERS: Emergency Provider Emergency Medicine; Family Provider Family Medicine; PCP Family Medicine
DX: S29.012A Strain of muscle and tendon of back wall of thorax, initial encounter (principal); M54.2 Cervicalgia; W01.0XXA Fall on same level from slipping, tripping and stumbling without subsequent striking against object, initial encounter; Y93.9 Activity, unspecified; Y92.9 Unspecified place or not applicable; Y99.9 Unspecified external cause status; F17.200 Nicotine dependence, unspecified, uncomplicated; Z88.0 Allergy status to penicillin; Z88.8 Allergy status to other drugs, medicaments and biological substances; Z79.899 Other long term (current) drug therapy; Z90.710 Acquired absence of both cervix and uterus
CPT/HCPCS: 72072; 99284

== ENCOUNTER 2019-04-09 14:17 | Emergency (ER) | payer SELFPAY ==
[2019-04-09 14:18] VITALS: BP 112/81; PULSE 101; RESP 16; TEMP 36.7; O2SAT 97; BMI 32.6
--- NOTE | 2019-04-09 14:38 | ED.VIS.GEN ---
History of Present Illness Chief Complaint: Headache Detail of Chief Complaint: Migraine and neck pain Informant: Patient Onset: Yesterday Context: Gradual Onset Timing: Waxes and wanes Current Severity: Moderate Maximum Severity: Moderate Narrative: Patient presents with what she reports is one of her typical migraines. She states she gets a lot of muscle spasm in her neck muscles and pain reasonable on the right side of her head. This started yesterday and was gradual in onset. She is been taking Excedrin at home without significant improvement. She did note a rash to the back of her neck that started 3 days ago. It is minimally painful. She states this is consistent with her psoriasis when she gets heat rashes. She denies any recent head injury. No URI symptoms. - Past Medical History (1) Bipolar 1 disorder Status: Chronic (2) History of migraine Status: Chronic (3) History of venous thromboembolism Status: Chronic Past Medical History - Allergies and Home Meds Allergies/Adverse Reactions: Allergies adhesive tape Allergy (Verified 04/09/19 14:20) Swelling Penicillins Allergy (Verified 04/09/19 14:20) Anaphylaxis diphenhydramine HCl [From Benadryl] Adverse Reaction (Verified 04/09/19 14:20) IV route causes panic attack. can take po Primary Care Physician: Dionicio Armijo MD [Primary Care Provider] - Prior records reviewed: Yes Surgical History: hysterectomy - GURPREET with BSO for cancer Smoking Status: Current every day smoker - Family History Maternal Family History: Reports: No pertinent history Paternal Family History: Reports: No pertinent history Review of Systems General: Denies: Chills, Fever Eyes: Denies: Visual changes - bilaterally ENT: Denies: Bilateral ear pain Cardiovascular: Denies: Chest pain Respiratory: Denies: Dyspnea, Cough Gastrointestinal: Reports: Nausea, Vomiting. Denies: Abdominal pain Musculoskeletal: Reports: Neck pain Skin: Reports: Rash Neurological: Reports: Headache. Denies: Weakness, Parasthesia Endocrine: Denies: Polyuria, Polydipsia Hematologic: Denies: Easy bruising Allergy: Denies: Uticaria Physical Exam Vital Signs/Narrative: Vital Signs Temp Pulse Resp BP Pulse Ox 04/09/19 14:18 98.0 F 101 H 16 112/81 H 97 Inital Vital Signs reviewed: Yes General: Well nourished, Well developed Head: Normocephalic ENT: Moist mucous membranes Neck: Supple Cardiovascular: Regular rate, Regular rhythm Respiratory: No distress, CTA bilaterally Abdomen: Soft, Nontender Extremities: Nontender Skin: - - Mild erythema to the posterior neck. There is no deflations minimally elevated. Rash is not consistent with shingles. Neurological: Alert, Oriented x3, Normal Strength, Normal Sensation Psychological: Normal affect Diagnostic/Tx/Re-eval - Medical Decision Making Patient received subcu Imitrex along with IM Norflex and Toradol. She had taken Zofran prior to arrival. I was advised by nursing staff that patient feels improved and is requesting discharge. She has a follow-up appointment scheduled in the next couple days. ED Disposition - Plan for ED Patient: Disposition: Home or Assisted Living Diagnosis: Migraines Instructions: ED, Migraine (Classical) Referrals: Dionicio Armijo MD [Primary Care Provider] - As Needed
[2019-04-09] MEDS: SUMAtriptan 6 MG/0.5 ML Vial SC (14:46)
[2019-04-09] MEDS: Ketorolac 60 MG/2 ML Vial IM (14:48)
[2019-04-09] MEDS: Orphenadrine 60 MG/2 ML Ampul IM (14:48)
--- NOTE | 2019-04-09 15:25 | ED.RN ---
No reaction noted at injection sites.
[2019-04-09 15:28] VITALS: BP 124/88; PULSE 80; RESP 18
== END 2019-04-09 15:29 | disposition home or self-care (01) ==
PROVIDERS: Emergency Provider Emergency Medicine; Family Provider Family Medicine; PCP Family Medicine
DX: G43.909 Migraine, unspecified, not intractable, without status migrainosus (principal); M54.2 Cervicalgia; M62.838 Other muscle spasm; R21 Rash and other nonspecific skin eruption; F31.9 Bipolar disorder, unspecified; Z88.8 Allergy status to other drugs, medicaments and biological substances; Z88.0 Allergy status to penicillin; F17.200 Nicotine dependence, unspecified, uncomplicated; Z86.718 Personal history of other venous thrombosis and embolism; Z90.710 Acquired absence of both cervix and uterus
CPT/HCPCS: 96372; 99283; J3030

== ENCOUNTER 2019-04-27 16:14 | Observation (INO) | payer BC, SELFPAY ==
[2019-04-27 16:14] VITALS: BP 124/67; PULSE 106; RESP 13; TEMP 36.9; O2SAT 100; BMI 27.3
--- NOTE | 2019-04-27 16:23 | EKG12_ITS ---
Test Reason : EBS Blood Pressure : / mmHG Vent. Rate : 073 BPM Atrial Rate : 073 BPM P-R Int : 138 ms QRS Dur : 072 ms QT Int : 386 ms P-R-T Axes : 044 034 045 degrees QTc Int : 425 ms Normal sinus rhythm Normal ECG No previous ECGs available Confirmed by NATALIO SHELTON, KAMERON ([id number]), features editor MIR TOPETE ([id number]) on 05/05/2019 10:38:31 AM Referred By: DR PAGAN Confirmed By:ELBA LANCE MD
--- NOTE | 2019-04-27 16:24 | CT_ITS ---
STUDY: CTA CHEST REASON FOR EXAM: Female, 43 years old. Right arm pain and numbness in RADIATION DOSAGE (If Supplied By Facility): CTDIvol = ( 12.53 ) mGy, DLP = ( 462.66 ) mGycm TECHNIQUE: The examination was performed with the intravenous administration of IV 100mL Isovue-370. Post-processing of the angiographic images was performed, with multiplanar reformation and 3D reconstruction. Individualized dose optimization techniques were used for this CT. COMPARISON: None. FINDINGS: Normal enhancement of the main pulmonary artery and right and left pulmonary arteries. Normal enhancement of the bilateral peripheral pulmonary arteries. There is no demonstrated pulmonary embolism. Normal thoracic aorta and visualized great vessels. There is no demonstrated aortic dissection. Normal heart and pericardium. Normal mediastinum. Normal hilar regions. Normal visualized trachea and bronchi. The lungs are under expanded. There are bandlike parenchymal changes most consistent with atelectasis of the bilateral lungs. There is a 3 mm nodule in the left lung base on image 79. Normal pleura. Normal chest wall structures. Normal osseous structures. Normal visualized upper abdomen. CT/CTA Chest W/WO Contrast IMPRESSION: 1. No central or segmental pulmonary embolism. 2. 3 mm nodule in the left lung base. Electronically Signed: Octavio Santamaria MD ([place]) at 17:44 EST , Service support ,
--- NOTE | 2019-04-27 16:30 | ED.DCSUM_ITS ---
- ER Visit Summary Date of Service: 04/27/19 Chief Complaint: Palpitations History of Present Illness: The patient is a 43 F presenting with palpitations, chest pain, anxiety. Patient states she is been under a lot of financial stress recently. She was getting ready for work and became very stressed out. She started having pain in her chest associated shortness of breath and palpitations. She has a history of anxiety and depression. She denies suicidal thoughts. She also has a remote history of DVT/PE. She is not on anticoagulants. She is a smoker. No other CAD risk factors. Physical Examination: Vitals are stable. Patient is afebrile. Alert no acute distress. HEENT exam is unremarkable. Neck is supple. Lungs are clear and equal bilaterally. Heart is regular and tachycardic Abdomen is soft nontender nondistended. Extremities are unremarkable. Skin is warm and dry. No focal neurologic deficit. Remainder of exam is unremarkable. Emergency Department Course and Treatment: Patient was given aspirin, Ativan. EKG is sinus tachycardia rate of 106. CBC unremarkable. Chemistries show potassium 2.6. Troponin is negative. CTA chest shows no central or segmental pulmonary embolism. 3 mm nodule in the left lung base. Patient was given KCl IV. Discussed with hospitalist for observation. Disposition: Observation Impression: Hypokalemia, palpitations This note was generated with [employer] dictation software. It may contain incorrect words, spelling, and punctuation that were not noted in review of the chart prior to signing ED Disposition - Plan for ED Patient: Referrals: Dionicio Armijo MD [Primary Care Provider] -
[2019-04-27] MEDS: LORazepam 1 MG Tablet PO (16:32)
[2019-04-27] MEDS: Aspirin 325 MG Tablet PO (16:33)
[2019-04-27] MEDS: 0.9% Normal Saline 1,000 ML 1000 ML IV (16:33)
[2019-04-27 16:41] LABS: Absolute Lymphocyte Count 2.67 X10^3/uL (0.83-4.51); Absolute Neutrophil Count 5.3 X10^3/uL (2.0-7.7); Basophil# 0.04 X10^3/uL; Basophil% 0.5 % (0-1); Eosinophils% 1.1 % (0-5); Hemoglobin 13.2 g/dL (12.0-15.0); Lymphocyte # 2.67 X10^3/ul (4.0); Lymphocyte % 30.2 % (19-41); Mean Corpuscular Hgb 31.9 pg (27.0-32.0); Mean Corpuscular Volume 96.6 fL (81-99); Mean Platelet Vol. 10.1 fl (6.2-12.0); Monocyte# 0.74 X10^3/uL; Monocyte% 8.4 % (0-10); NRBC Flagged by Analyzer 0 % (0-5); Neutrophil # 5.28 X10^3/uL (2.7-7.7); Neutrophil % 59.6 % (47-70); Platelet Count 322 K/mm3 (150-450); RBC Distribution Width CV 12.9 % (11.6-14.6); RBC Distribution Width SD 46.3 fl (35.1-43.9); Red Blood Count 4.14 M/mm3 (4.2-5.4); White Blood Count 8.9 K/mm3 (4.4-11.0)
[2019-04-27 17:17] LABS: Anion Gap 9 (5-15); BUN 12 mg/dL (7-18); BUN/Creat Ratio 11.7 RATIO (10-20); Calcium,Total 9.3 mg/dL (8.5-10.1); Chloride 103 mmol/L (98-107); Creatinine, Serum 1.03 mg/dL (0.55-1.02); EST Glomerular Filtration Rate 63 mL/min (>60); Est Glom Filt Rate - Afr Amer 76 mL/min (>60); Estimated Creatinine Clearance 72.51 ml/min; Glucose 109 mg/dL (74-106); Potassium 2.6 mmol/L (3.5-5.1); Sodium Level 140 mmol/L (136-145)
[2019-04-27 17:20] VITALS: BP 102/71; PULSE 81; RESP 16; O2SAT 97
[2019-04-27] MEDS: Potassium Chloride 10mEq/100mL 10 MEQ/100 ML IV.SOLN. 100 MEQ IV BOLUS ×4 (17:59→21:44)
--- NOTE | 2019-04-27 18:40 | PCM.HP.STD ---
Problem List (1) Atypical chest pain Status: Acute (2) Hypokalemia Status: Acute (3) Acute respiratory failure with hypoxemia Status: Inactive (4) CAP (community acquired pneumonia) Status: Inactive (5) Dehydration Status: Acute (6) Headache Status: Inactive (7) Nausea Status: Acute (8) Sinus tachycardia Status: Acute (9) Bipolar 1 disorder Status: Chronic (10) History of migraine Status: Chronic (11) History of venous thromboembolism Status: Chronic (12) Lumbar back pain Status: Chronic (13) Obesity (BMI 30.0-34.9) Status: Chronic (14) Smoking addiction Status: Chronic Comment: F17.200 History of Present Illness Date of Admission: 04/27/19 Chief Complaint: Chest pain, nausea vomiting The patient is a 43 year old F with history of migraine, chronic pain/musculoskeletal pain came to ER with weakness, chest pain, palpitation and anxiety. Her pain seems mainly musculoskeletal as she complained of left upper and right shoulder pain. She also on stress and has unrelated symptoms including insomnia, blurry vision and restlessness and has history of anxiety and depression but not able to see a psychiatrist recently because of loss of insurance. She denies any suicidal ideation/thoughts. In ED, she was found to have hypokalemic, K2.6. She was having nausea and vomiting about 3-4 times daily, bilious in nature for 3 days and has resolved now. First troponin is negative. EKG shows sinus tachycardia at [address] changes. No change from previous EKG of 05/01/2016. Chest CT was done which shows no central or segmental PE. Patient has remote history of DVT and is not on anticoagulant. Past Medical History Past Medical History (Chronic Problems): Chronic Problems History of venous thromboembolism (Chronic) Smoking addiction (Chronic) F17.200 History of migraine (Chronic) Bipolar 1 disorder (Chronic) Obesity (BMI 30.0-34.9) (Chronic) Lumbar back pain (Chronic) Allergies adhesive tape Allergy (Verified 04/27/19 16:17) Swelling Penicillins Allergy (Verified 04/27/19 16:17) Anaphylaxis diphenhydramine HCl [From Benadryl] Adverse Reaction (Verified 04/27/19 16:17) IV route causes panic attack. can take po Home Medications: Ambulatory Orders Medication Instructions Recorded Baclofen [Lioresal] 10 mg PO TID 04/27/19 Gabapentin [Neurontin] 400 mg PO TID 04/27/19 Surgical History: hysterectomy - GURPREET with BSO for cancer [employer] History: - - She says she had a hysterectomy for cancer but does not know if it was cervical, endometrial or ovarian. Smoking Status: Current every day smoker - *Family History Maternal History Items: No pertinent history Paternal History Items: No pertinent history Review of Systems Constitutional: Denies: Chills, Fever, Weight Change HEENT: Denies: Head Aches, Sinus Congestion, Sinus Drainage Cardiovascular: Reports: Chest Pain, Palpitations Respiratory: Denies: Cough, Shortness of breath at rest, Sputum production Gastrointestinal: Reports: Nausea, Vomiting - has resolved.. Denies: Abdominal Pain Genitourinary: Denies: Dysuria Musculoskeletal: Denies: Joint Pain, Joint Tenderness Skin: Denies: Rash, Wounds Neurological: Denies: Numbness, Tingling, Focal weakness Psychiatric: Reports: Anxiety, Depression. Denies: Homicidal Ideations, Suicidal Ideations Hematologic/ Lymphatic: Denies: Easy Bruising, Easy Bleeding VTE Information - Inpt Only VTE Present on Admission: No VTE Mechan Device Prophylaxis: None VTE Pharm Prophylaxis ordered?: Yes Patient Problems: Active and Suspected Problems Atypical chest pain (Acute) Hypokalemia (Acute) - Physical Exam Vitals/I&O's: Vital Signs Temp Pulse Resp BP Pulse Ox 98.4 F 81 16 102/71 97 04/27/19 16:14 04/27/19 17:20 04/27/19 17:20 04/27/19 17:20 04/27/19 17:20 Oxygen Delivery Method Room Air Weight: 180 lb Body Mass Index (BMI) 27.3 General: Alert, Oriented x3, Cooperative HEENT: Atraumatic, PERRLA, EOMI, Normocephalic Oral: No Gingival or Mucosal Lesions/ Ulcerations - edentulous, Dry Mucosa Neck: Supple, No JVD, Negative Carotid Bruits Lungs: Clear to auscultation, Normal air movement Cardiovascular: Regular rate, Regular Rhythm, Normal S1, Normal S2, No murmurs Abdomen: Bowel Sounds Present, Soft, Non Tender, Non-Distended Extremities: No edema, Capillary Refill Less than 3 Seconds Skin: No rashes, No breakdown Musculoskeletal: No Tenderness to Palpation of Joints or Extremities, Arthritic Changes Neurological: Cranial nerves II-XII grossly intact, Deep Tendon Reflexes 2+/4 and Symmetrical, Neuro grossly intact, Motor Exam 5/5 strength throughout Psych/Mental Status: Normal Affect, Appropriate Laboratory Results 04/27/19 16:20: WBC 8.9, RBC 4.14 L, Hgb 13.2, Hct 40.0, MCV 96.6, MCH 31.9, MCHC 33.0, RDW Std Deviation 46.3 H, RDW Coeff of Flavia 12.9, Plt Count 322, MPV 10.1, Immature Gran % (Auto) 0.200, Neut % (Auto) 59.6, Lymph % (Auto) 30.2, [place] % (Auto) 8.4, Eos % (Auto) 1.1, Baso % (Auto) 0.5, Absolute Neuts (auto) 5.3, Absolute Lymphs (auto) 2.67, Nucleated RBC % 0 04/27/19 16:20: Sodium 140, Potassium 2.6 L*, Chloride 103, Carbon Dioxide 28.0, Anion Gap 9, BUN 12, Creatinine 1.03 H, Estim Creat Clear Calc 72.51, Est GFR (MDRD) Af Amer 76, Est GFR (MDRD) Non-Af 63, BUN/Creatinine Ratio 11.7, Glucose 109 H, Calcium 9.3, Troponin I < 0.015 Current Medications Potassium Chloride () 10 meq in 100 mls @ 100 mls/hr IV BOLUS Q1H UBALDO Stop: 04/27/19 21:29 Last Admin: 04/27/19 17:59 Dose: 100 mls/hr Documented by: Assessment/Plan All Active Problems Atypical chest pain (Acute) Hypokalemia (Acute) Sinus tachycardia (Acute) Nausea (Acute) Dehydration (Acute) Abscess of left thigh (Resolved) Cellulitis of left thigh (Resolved) Conjunctivitis (Resolved) Endometrial ca (Resolved) History of MRSA infection (Resolved) Pelvic cancer (Resolved) Pulmonary embolus (Resolved) Skin ulcer of left thigh (Resolved) The patient is a 43 year old F with history of migraine, chronic pain/musculoskeletal pain came to ER with weakness, chest pain, palpitation and anxiety. In ED, she was found to have hypokalemic, K2.6. She was having nausea and vomiting about 3-4 times daily, bilious in nature for 3 days and has resolved now. First troponin is negative. EKG shows sinus tachycardia at [address] changes. No change from previous EKG of 05/01/2016. Chest CT was done which shows no central or segmental PE. Patient has remote history of DVT and is not on anticoagulant. 1. Atypical chest pain most likely musculoskeletal/panic attack: Patient is being admitted in PCU to rule out ACS. Serial troponin enzymes. Treadmill nuclear stress test tomorrow morning. 2. Hypokalemia with dehydration: Most probably related to nausea and vomiting. 40 M EQ IV KCl currently on replacement. Repeat K after replacement. Magnesium and phosphorus ordered. No EKG changes of hyperkalemia. IV fluid Ringer lactate at 100 mL/h for 2 L. 3. Chronic musculoskeletal pain/pain disorder, anxiety, depression/bipolar 1 disorder, history of migraine: Patient has not been able to see psychiatry secondary to loss of insurance. She is on baclofen 10 mg 3 times daily and gabapentin 400 mg 3 times daily which are continued. Started on Wellbutrin SR as it will help with her smoking withdrawal symptoms along with nicotine patch. She denies suicidal ideation/thoughts. 4. Remote history of DVT: CTPA was negative. On Lovenox 40 mg subcu daily for DVT prophylaxis Laboratory Results 04/27/19 16:20: WBC 8.9, RBC 4.14 L, Hgb 13.2, Hct 40.0, MCV 96.6, MCH 31.9, MCHC 33.0, RDW Std Deviation 46.3 H, RDW Coeff of Flavia 12.9, Plt Count 322, MPV 10.1, Immature Gran % (Auto) 0.200, Neut % (Auto) 59.6, Lymph % (Auto) 30.2, [place] % (Auto) 8.4, Eos % (Auto) 1.1, Baso % (Auto) 0.5, Absolute Neuts (auto) 5.3, Absolute Lymphs (auto) 2.67, Nucleated RBC % 0 04/27/19 16:20: Sodium 140, Potassium 2.6 L*, Chloride 103, Carbon Dioxide 28.0, Anion Gap 9, BUN 12, Creatinine 1.03 H, Estim Creat Clear Calc 72.51, Est GFR (MDRD) Af Amer 76, Est GFR (MDRD) Non-Af 63, BUN/Creatinine Ratio 11.7, Glucose 109 H, Calcium 9.3, Troponin I < 0.015 Clinical Impression(s) from Imaging Studies Chest CTA 04/27/19 16:24 IMPRESSION: 1. No central or segmental pulmonary embolism. 2. 3 mm nodule in the left lung base. Code Visit OBSV E&M: 40460 Initial observation care L3
[2019-04-27 19:06] VITALS: BMI 30.9; BMI 31.0
[2019-04-27 19:13] VITALS: BP 116/98; PULSE 75; RESP 14; TEMP 36.9; O2SAT 97
[2019-04-27 19:21] VITALS: PULSE 79
--- NOTE | 2019-04-27 19:25 | EKG12_ITS ---
Test Reason : CP Blood Pressure : / mmHG Vent. Rate : 106 BPM Atrial Rate : 106 BPM P-R Int : 134 ms QRS Dur : 070 ms QT Int : 336 ms P-R-T Axes : 042 036 053 degrees QTc Int : 446 ms Sinus tachycardia Nonspecific T wave abnormality Abnormal ECG Confirmed by BEBO SHELTON, NICOLE ([id number]), videotape editor AJAY DE LA O ([id number]) on 05/01/2019 11:32:34 AM Referred By: RAY Confirmed By:NICOLE LAGUNAS MD
[2019-04-27] MEDS: Lactated Ringers 1,000 ML 100 ML IV (19:47)
--- NOTE | 2019-04-27 20:09 | NURSING ---
Pt KCL decreased to 75 mL/hr at this time d/t pt reporting severe burning despite ice pack placement and y-site fluids running.
[2019-04-27] MEDS: Morphine 2 MG/ML Syringe IV (20:22)
[2019-04-27] MEDS: Enoxaparin 40 MG/0.4 ML Syringe SC (20:23)
[2019-04-27 20:42] VITALS: O2SAT 97
[2019-04-27 20:52] LABS: Magnesium 2.4 mg/dL (1.6-2.6)
[2019-04-27] MEDS: Famotidine 20 MG Tablet PO (21:40)
[2019-04-27] MEDS: Baclofen 10 MG Tablet PO (21:40)
[2019-04-27 23:04] VITALS: PULSE 81
[2019-04-27 23:35] LABS: Potassium 3.6 mmol/L (3.5-5.1)
[2019-04-28] VITALS (9 sets, daily range): BP systolic 105–137; BP diastolic 55–96; PULSE 80–99; RESP 10–18; TEMP 36.5–36.9; O2SAT 98–100
--- NOTE | 2019-04-28 00:02 | PCM.PN.BLA ---
Progress Note Patient reportedly has suicidal ideations when she takes wellbutrin. Will discontinue Wellbutrin. STROKE Vital Signs/Narrative: Vital Signs Pulse Pulse Ox 04/27/19 23:04 81 04/27/19 20:42 97
[2019-04-28] MEDS: oxyCODONE 5 MG Tablet PO ×2 (00:34→12:05)
[2019-04-28] MEDS: Acetaminophen 325 MG Tablet 650 MG PO (04:48)
[2019-04-28] MEDS: Aspirin E.C. 81 MG Tablet PO (05:10)
[2019-04-28] MEDS: Baclofen 10 MG Tablet PO ×2 (05:10→14:39)
--- NOTE | 2019-04-28 05:55 | EKG12_ITS ---
Test Reason : CP Blood Pressure : / mmHG Vent. Rate : 078 BPM Atrial Rate : 078 BPM P-R Int : 140 ms QRS Dur : 076 ms QT Int : 372 ms P-R-T Axes : 032 032 026 degrees QTc Int : 424 ms Normal sinus rhythm Low voltage QRS Septal infarct , age undetermined Abnormal ECG When compared with ECG of 28-APR-2019 05:27, MANUAL COMPARISON REQUIRED, DATA IS UNCONFIRMED Confirmed by NAATLIO SHELTON, KAMERON ([id number]), manuscript editor MIR TOPETE ([id number] on 05/05/2019 10:36:59 AM Referred By: ALTASHA Confirmed By:ELBA LANCE MD
[2019-04-28 06:02] LABS: Absolute Lymphocyte Count 2.92 X10^3/uL (0.83-4.51); Absolute Neutrophil Count 2.3 X10^3/uL (2.0-7.7); Basophil# 0.03 X10^3/uL; Basophil% 0.5 % (0-1); Eosinophil# 0.11 X10^3/uL; Eosinophils% 1.8 % (0-5); Hematocrit 33.6 % (37-47); Hemoglobin 10.8 g/dL (12.0-15.0); Lymphocyte # 2.92 X10^3/ul (4.0); Lymphocyte % 48.9 % (19-41); Mean Corp Hgb Conc 32.1 g/dL (32-36); Mean Corpuscular Hgb 31.1 pg (27.0-32.0); Mean Corpuscular Volume 96.8 fL (81-99); Mean Platelet Vol. 10.1 fl (6.2-12.0); Monocyte# 0.61 X10^3/uL; Monocyte% 10.2 % (0-10); NRBC Flagged by Analyzer 0 % (0-5); Neutrophil % 38.6 % (47-70); Platelet Count 235 K/mm3 (150-450); RBC Distribution Width CV 13.1 % (11.6-14.6); RBC Distribution Width SD 46.5 fl (35.1-43.9); Red Blood Count 3.47 M/mm3 (4.2-5.4)
[2019-04-28] MEDS: Lactated Ringers 1,000 ML 100 ML IV (06:26)
[2019-04-28 06:31] LABS: Anion Gap 4 (5-15); BUN 10 mg/dL (7-18); BUN/Creat Ratio 18.3 RATIO (10-20); Chloride 110 mmol/L (98-107); Cholesterol 166 mg/dL (200); Creatinine, Serum 0.55 mg/dL (0.55-1.02); EST Glomerular Filtration Rate 130 mL/min (>60); Est Glom Filt Rate - Afr Amer 157 mL/min (>60); Estimated Creatinine Clearance 140.68 ml/min; Glucose 89 mg/dL (74-106); High Density Lipoprotein 38 mg/dL; Phosphorus 4.2 mg/dL (2.5-4.9); Potassium 3.1 mmol/L (3.5-5.1); Sodium Level 143 mmol/L (136-145); Thyroid Stim Hormone (TSH) 2.03 uIU/mL (0.358-3.74); Triglycerides 141 mg/dL; Very Low Density Lipoprotein 28 mg/dL (5-40)
[2019-04-28] MEDS: Potassium Chloride 10mEq/100mL 10 MEQ/100 ML IV.SOLN. 100 MEQ IV BOLUS (07:59)
--- NOTE | 2019-04-28 08:28 | NURSING ---
1st Sundar paused as pt went down via bed for Stress test.
--- NOTE | 2019-04-28 11:03 | NURSING ---
Continues to be off the floor.
--- NOTE | 2019-04-28 11:29 | PCM.DC ---
- Discharge Diagnoses Current Active Problems: Current Active and Chronic Problems Atypical chest pain (Acute) Hypokalemia (Acute) You will use the following diet at home:: Regular Your food should be the consistency of: Regular Discharge Activity: May Not Drive Additional Instructions: F/U Psyhiatrist in 2 week Allergies/Adverse Reactions: Allergies adhesive tape Allergy (Verified 04/27/19 16:17) Swelling Penicillins Allergy (Verified 04/27/19 16:17) Anaphylaxis bupropion [From Wellbutrin] Adverse Reaction (Verified 04/28/19 01:02) Other diphenhydramine HCl [From Benadryl] Adverse Reaction (Verified 04/27/19 16:17) IV route causes panic attack. can take po Medications to take at Discharge Baclofen [Lioresal] 10 mg PO TID 04/27/19 Gabapentin [Neurontin] 400 mg PO TID 04/27/19 Escitalopram Oxalate [Lexapro] 10 mg PO DAILY #30 tab 04/28/19 The following prescriptions were given: Escitalopram Oxalate [Lexapro] 10 mg PO DAILY #30 tab Transmission Status: Pending to [id number] Primary Care Physician: Dionicio Armijo MD [Primary Care Provider] - Please follow up with your Primary Care Physician in: in 1-2 weeks. Check BMP in 1 week with PCP Test Results: Test results from this visit will be discussed in further detail at your follow-up appointment, if applicable.
--- NOTE | 2019-04-28 11:49 | EKG12_ITS ---
Test Reason : AM EKG Blood Pressure : / mmHG Vent. Rate : 080 BPM Atrial Rate : 080 BPM P-R Int : 144 ms QRS Dur : 080 ms QT Int : 394 ms P-R-T Axes : 048 043 032 degrees QTc Int : 454 ms Normal sinus rhythm Nonspecific T wave abnormality Abnormal ECG No previous ECGs available Confirmed by NATALIO SHELTON, KAMERON ([id number]), editor farm journal MIR TOPETE ([id number]) on 05/05/2019 10:37:48 AM Referred By: LATASHA Confirmed By:ELBA LANCE MD
--- NOTE | 2019-04-28 11:50 | NURSING ---
this nurse was just in room., reapplied telemonitor. chief yeoman came to find this nurse several minuates later saying pt having sharp pain. pt states sharp pain started in arm, then went to the right side of her chest. My arm started to burn and then it went into my chest and to my head. Vital Signs being taken at this time. This nurse turned the potassium off and now pt states chest pain is non-exsistant. But head is throbbing. CPS is here to do a EKG. It was like my heart was on fire. See VS intervention for Vitals.
[2019-04-28] MEDS: Gabapentin 400 MG Capsule PO (12:05)
[2019-04-28] MEDS: Famotidine 20 MG Tablet PO (12:08)
[2019-04-28] MEDS: Potassium Chloride 10mEq/100mL 10 MEQ/100 ML IV.SOLN. 8 MEQ IV BOLUS ×2 (12:15→13:32)
--- NOTE | 2019-04-28 12:17 | NURSING ---
Dr. Sumner is aware of pts chest pain recently. Dr. Sumner came to see pt recently.
--- NOTE | 2019-04-28 12:35 | CASEMGMT ---
SW attempted to talk with patient about her insurance problems as she has not been able to afford her mental health medications nor has she been able to go to app because her co-pays are too much. Patient told SW she said, I told her I did not want to talk to you. SW told her SW was checking in with her to see if she needs help with medications. She said she doesn't have government insurance anymore. SW asked if she does have [place] and she said she does. She said it doesn't matter how cheap the meds would be she cannot afford anything. SW asked if her insurance is through her employer and she said it is, but she has to pay for a roof over her head and food first. She said, I told her I did not want to talk with you. There is nothing that will make you feel worse about not having money than having a outreach and education social worker standing in front of you. DONALD then left the room as it was apparent the patient did not want any help or even talk with SW. Loreta FLYNN MSW
--- NOTE | 2019-04-28 12:40 | STRESSREP ---
Stress Test Report Date: 04/28/2019 Procedure: Exercise tolerance test/imaging study Indications: Chest pain Consent: Per the patient Procedure: The patient exercised on a Williams protocol for 3 minutes achieving a peak heart rate of 144 bpm (80 % predicted maximal heart rate) with a peak blood pressure 146/72 mmHg and a peak MET capacity of 4.6 METs. The baseline ECG demonstrated normal sinus rhythm. The peak exercise ECG demonstrated sinus tachycardia with no significant ischemic changes. EKG during recovery revealed no significant ischemic changes [There were no cardiac dysrhythmias pretest, during exercise, or recovery]. The functional capacity was considered significantly decreased for age. There was [no complaint of chest discomfort during exercise or recovery]. The examination was discontinued secondary to knee pain. Patient refused Lexiscan. Impression: 1. Inability to reach 85% of maximal age-predicted heart rate decreases the sensitivity of this test. 2. Stress test is negative for exercise-induced EKG changes of ischemia 3. The test test is negative for exercise-induced chest pain 4. Functional capacity is significantly decreased for age 5. Nuclear images pending Myocardial perfusion imaging study: Technique: The patient was injected with 11 mCi of technetium 99m Cardiolite and subsequently rest SPECT Cardiolite nuclear imaging was obtained in the horizontal long, vertical long, and short axis views. The patient exercised on a Williams protocol. Please see above for details. The patient was injected with 33 mCi of technetium 99m Cardiolite and subsequently stress SPECT Cardiolite nuclear imaging was obtained in the horizontal long, vertical long, and short axis views. A gated Cardiolite study at peak stress was obtained. Interpretation: Rest and stress SPECT Cardiolite nuclear imaging status post realignment, normalization, and attenuation correction, demonstrates overall normal myocardial radioisotope uptake. The gated Cardiolite study demonstrates no significant regional wall motion abnormalities. The reported LVEF is 59 %. Impression: 1. There is no evidence of significant ischemia or infarction. 2. The gated Cardiolite study reports an LVEF of 59 %. This note was generated with [employer]ation software. It may contain incorrect words, spelling, and punctuation that were not noted in checking the note before signing.
[2019-04-28] MEDS: Escitalopram Oxalate 10 MG Tablet PO (13:16)
[2019-04-28] MEDS: SUMAtriptan 6 MG/0.5 ML Vial SC (14:39)
--- NOTE | 2019-04-28 14:54 | NURSING ---
Pt stress test is negative and got all 3 bags of potassium kriders. Pt is angry about food that was delivered to her room. This nurse explained that she is on a cardiac diet. Pt states she should not have to pay for her lunch b/c she didn't touch it. This nurse offered to have her talk to the charge nurse, pt refused. I'll call in and complain, it will make me feel better.
--- NOTE | 2019-04-28 15:05 | NURSING ---
This nurse took IV out and was told to get dressed and then This nurse would be back with her paperwork and then she could leave. Approximately 10 min pasted, this nurse went into room and pt and her daughter and belongings were gone. Pt did not wait for discharge instructions.
--- NOTE | 2019-04-28 15:43 | PCM.DC.SUM ---
Discharge Date and Diagnosis Date of Admission: 04/27/19 Date of Discharge: 04/28/19 - Primary Discharge Diagnosis Active and Suspected Problems Atypical chest pain (Acute) Hypokalemia (Acute) - Secondary Discharge Diagnosis Chronic Problems History of venous thromboembolism (Chronic) Smoking addiction (Chronic) F17.200 History of migraine (Chronic) Bipolar 1 disorder (Chronic) Obesity (BMI 30.0-34.9) (Chronic) Lumbar back pain (Chronic) Hospital Course and Treatment Imaging Results: 04/28/19 05:55 Nuclear Stress Test - Treadmil [NM] AM (NON MEDS) Operations: - - ureteroscopy, laser stone and stent Summary of Care Provided: [] The patient is a 43 year old F with history of migraine, chronic pain/musculoskeletal pain came to ER with weakness, chest pain, palpitation and anxiety. In ED, she was found to have hypokalemic, K2.6. She was having nausea and vomiting about 3-4 times daily, bilious in nature for 3 days and has resolved now. First troponin is negative. EKG shows sinus tachycardia at [address] changes. No change from previous EKG of 05/01/2016. Chest CT was done which shows no central or segmental PE. Patient has remote history of DVT and is not on anticoagulant. 1. Atypical chest pain most likely musculoskeletal/panic attack: Patient is being admitted in PCU to rule out ACS. Serial troponin enzymes are negative. Subsequently patient had treadmill nuclear imaging study which reported as normal although functional capacity was considered significantly decreased for age. 2. Hypokalemia with dehydration: Most probably related to nausea and vomiting. 40 M EQ IV KCl currently on replacement. Repeat K after replacement. Magnesium and phosphorus ordered. No EKG changes of hyperkalemia. IV fluid Ringer lactate at 100 mL/h for 2 L. 04/28: Repeat potassium was 3.6 and then 3.1. Magnesium and phosphorus normal. Patient had potassium replacement. Advised follow-up BMP in 1 week with PCP. 3. Chronic musculoskeletal pain/pain disorder, anxiety, depression/bipolar 1 disorder, history of migraine: Patient has not been able to see psychiatry secondary to loss of insurance. She is on baclofen 10 mg 3 times daily and gabapentin 400 mg 3 times daily which are continued. Started on Wellbutrin SR as it will help with her smoking withdrawal symptoms along with nicotine patch. She denies suicidal ideation/thoughts. 4. Remote history of DVT: CTPA was negative. On Lovenox 40 mg subcu daily for DVT prophylaxis Discharge medication reconciliation done. Discharge follow-up instructions completed. Discharge process discussed with the patient and all questions were answered to patient's satisfaction. Patient is ready to follow-up with psychiatrist as she has history of bipolar disorder. His prescription for Lexapro 10 mg daily given. She has tolerated it well in the past. Total time spent, exact 35 minutes on discharge meds reconciliation, examination, review of imaging and blood test and discussion with the patient on follow-up instructions. Laboratory Results 04/27/19 16:20: WBC 8.9, RBC 4.14 L, Hgb 13.2, Hct 40.0, MCV 96.6, MCH 31.9, MCHC 33.0, RDW Std Deviation 46.3 H, RDW Coeff of Flavia 12.9, Plt Count 322, MPV 10.1, Immature Gran % (Auto) 0.200, Neut % (Auto) 59.6, Lymph % (Auto) 30.2, [place] % (Auto) 8.4, Eos % (Auto) 1.1, Baso % (Auto) 0.5, Absolute Neuts (auto) 5.3, Absolute Lymphs (auto) 2.67, Nucleated RBC % 0 04/27/19 16:20: Sodium 140, Potassium 2.6 L*, Chloride 103, Carbon Dioxide 28.0, Anion Gap 9, BUN 12, Creatinine 1.03 H, Estim Creat Clear Calc 72.51, Est GFR (MDRD) Af Amer 76, Est GFR (MDRD) Non-Af 63, BUN/Creatinine Ratio 11.7, Glucose 109 H, Calcium 9.3, Troponin I < 0.015 04/27/19 20:05: Magnesium 2.4, Troponin I < 0.015 04/27/19 22:52: Potassium 3.6 04/27/19 22:52: Troponin I < 0.015 04/28/19 05:35: Sodium 143, Potassium 3.1 L, Chloride 110 H, Carbon Dioxide 29.0, Anion Gap 4 L, BUN 10, Creatinine 0.55, Estim Creat Clear Calc 140.68, Est GFR (MDRD) Af Amer 157, Est GFR (MDRD) Non-Af 130, BUN/Creatinine Ratio 18.3, Glucose 89, Calcium 8.0 L, Phosphorus 4.2, Triglycerides 141, Cholesterol 166, LDL Cholesterol 100, VLDL Cholesterol 28, HDL Cholesterol 38 L, TSH 2.03 04/28/19 05:35: WBC 6.0, RBC 3.47 L, Hgb 10.8 L, Hct 33.6 L, MCV 96.8, MCH 31.1, MCHC 32.1, RDW Std Deviation 46.5 H, RDW Coeff of Flavia 13.1, Plt Count 235, MPV 10.1, Immature Gran % (Auto) 0.000, Neut % (Auto) 38.6 L, Lymph % (Auto) 48.9 H, [place] % (Auto) 10.2 H, Eos % (Auto) 1.8, Baso % (Auto) 0.5, Absolute Neuts (auto) 2.3, Absolute Lymphs (auto) 2.92, Nucleated RBC % 0 Clinical Impression(s) from Imaging Studies Chest CTA 04/27/19 16:24 IMPRESSION: 1. No central or segmental pulmonary embolism. 2. 3 mm nodule in the left lung base. Subjective: Seen and examined. Patient is still looks anxious, restless. Patient has history of bipolar disorder. Patient states she cannot see psychiatrist because of high co-pay. Wellbutrin was discontinued as she had allergic reaction in the past. - Physical Exam Vitals/I&O's: Vital Signs Temp Pulse Resp BP Pulse Ox 98.1 F 88 18 131/80 H 100 04/28/19 11:54 04/28/19 11:54 04/28/19 11:54 04/28/19 11:54 04/28/19 11:54 Oxygen Delivery Method Room Air Weight: 209 lb 10.554 oz Body Mass Index (BMI) 30.9 Intake and Output for Last 24 Hours 04/26/19 04/27/19 04/28/19 23:59 23:59 23:59 Intake Total 2119. / 2119.00 1351.67 / 1351.67 Balance 2119. / 2119.00 1351.67 / 1351.67 General: Alert, Oriented x3, Cooperative HEENT: Atraumatic, PERRLA, EOMI, Normocephalic Neck: Supple, No JVD, Negative Carotid Bruits Lungs: Clear to auscultation, Normal air movement, No rhonchi, No wheeze, No rales Cardiovascular: Regular rate, Regular Rhythm, Normal S1, Normal S2, No murmurs Abdomen: Bowel Sounds Present, Soft, Non Tender, Non-Distended Extremities: No edema, Capillary Refill Less than 3 Seconds Skin: No rashes, No breakdown Musculoskeletal: No Tenderness to Palpation of Joints or Extremities, Arthritic Changes Neurological: Cranial nerves II-XII grossly intact Psych/Mental Status: Normal Affect, Appropriate Laboratory Results 04/27/19 16:20: WBC 8.9, RBC 4.14 L, Hgb 13.2, Hct 40.0, MCV 96.6, MCH 31.9, MCHC 33.0, RDW Std Deviation 46.3 H, RDW Coeff of Flavia 12.9, Plt Count 322, MPV 10.1, Immature Gran % (Auto) 0.200, Neut % (Auto) 59.6, Lymph % (Auto) 30.2, [place] % (Auto) 8.4, Eos % (Auto) 1.1, Baso % (Auto) 0.5, Absolute Neuts (auto) 5.3, Absolute Lymphs (auto) 2.67, Nucleated RBC % 0 04/27/19 16:20: Sodium 140, Potassium 2.6 L*, Chloride 103, Carbon Dioxide 28.0, Anion Gap 9, BUN 12, Creatinine 1.03 H, Estim Creat Clear Calc 72.51, Est GFR (MDRD) Af Amer 76, Est GFR (MDRD) Non-Af 63, BUN/Creatinine Ratio 11.7, Glucose 109 H, Calcium 9.3, Troponin I < 0.015 04/27/19 20:05: Magnesium 2.4, Troponin I < 0.015 04/27/19 22:52: Potassium 3.6 04/27/19 22:52: Troponin I < 0.015 04/28/19 05:35: Sodium 143, Potassium 3.1 L, Chloride 110 H, Carbon Dioxide 29.0, Anion Gap 4 L, BUN 10, Creatinine 0.55, Estim Creat Clear Calc 140.68, Est GFR (MDRD) Af Amer 157, Est GFR (MDRD) Non-Af 130, BUN/Creatinine Ratio 18.3, Glucose 89, Calcium 8.0 L, Phosphorus 4.2, Triglycerides 141, Cholesterol 166, LDL Cholesterol 100, VLDL Cholesterol 28, HDL Cholesterol 38 L, TSH 2.03 04/28/19 05:35: WBC 6.0, RBC 3.47 L, Hgb 10.8 L, Hct 33.6 L, MCV 96.8, MCH 31.1, MCHC 32.1, RDW Std Deviation 46.5 H, RDW Coeff of Flavia 13.1, Plt Count 235, MPV 10.1, Immature Gran % (Auto) 0.000, Neut % (Auto) 38.6 L, Lymph % (Auto) 48.9 H, [place] % (Auto) 10.2 H, Eos % (Auto) 1.8, Baso % (Auto) 0.5, Absolute Neuts (auto) 2.3, Absolute Lymphs (auto) 2.92, Nucleated RBC % 0 Current Medications Acetaminophen (Tylenol) 650 mg PO Q6H PRN PRN PRN Reason: Pain Score 1-3/Temp > 100.7 F Last Admin: 04/28/19 04:48 Dose: 650 mg Documented by: Al Hydroxide/Mg Hydroxide (Mylanta Ii) 30 ml PO Q6H PRN PRN PRN Reason: Gastric Burning Albuterol Sulfate (Ventolin Aerosols) 2.5 mg INHALATION Q2H PRN PRN PRN Reason: SOB/Wheezing Aspirin (Ecotrin) 81 mg PO DAILY@0800 [facility] Last Admin: 04/28/19 05:10 Dose: 81 mg Documented by: Baclofen (Lioresal) 10 mg PO TID [facility] Last Admin: 04/28/19 05:10 Dose: 10 mg Documented by: Enoxaparin Sodium (Lovenox) 40 mg SC DAILY [facility] Last Admin: 04/28/19 12:05 Dose: Not Given Documented by: Escitalopram Oxalate (Lexapro) 10 mg PO DAILY [facility] Famotidine (Pepcid) 20 mg PO BID [facility] Last Admin: 04/28/19 12:08 Dose: 20 mg Documented by: Gabapentin (Neurontin) 400 mg PO TIDCM [facility] Last Admin: 04/28/19 12:05 Dose: 400 mg Documented by: Glucagon () 1 mg IM .X1 PRN PRN Reason: Hypoglycemia Lactated Ringer's () 1,000 mls @ 100 mls/hr IV .Q10H [facility] Stop: 04/28/19 15:24 Last Infusion: 04/28/19 11:28 Dose: 100 mls/hr Documented by: Dextrose (Dextrose 10%-Water) 250 mls @ 999 mls/hr IV .Q16M PRN; Protocol PRN Reason: HYPOGLYCEMIA Morphine Sulfate () 2 mg IV Q3H PRN PRN PRN Reason: Pain Score 6-10/10 Last Admin: 04/27/19 20:22 Dose: 2 mg Documented by: Nicotine (Nicoderm Cq (Pbkc)) 21 mg TRANSDERM. DAILY [facility] Last Admin: 04/28/19 12:08 Dose: 21 mg Documented by: Nitroglycerin (Nitrostat) 0.4 mg SUBLINGUAL Q5M PRN PRN Reason: CARDIAC/CHEST PAIN Nutritional Formula (Lactose Free) (Ensure Enlive) 120 ml PO 4X/DAY [facility] Last Admin: 04/28/19 11:28 Dose: Not Given Documented by: Ondansetron HCl (Zofran) 4 mg IV Q8H PRN PRN PRN Reason: NAUSEA/VOMITING Oxycodone HCl (Oxyir) 5 mg PO Q4H PRN PRN PRN Reason: Pain Score 4-5/10 Last Admin: 04/28/19 12:05 Dose: 5 mg Documented by: Promethazine HCl (Phenergan) 12.5 mg IV Q6H PRN PRN PRN Reason: Breakthrough Nausea/Vomiting Senna/Docusate Sodium (Senokot-S, Daniella-Colace) 2 tablet PO BID PRN PRN PRN Reason: Constipation Sodium Chloride () 10 - 40 ml IV UD PRN PRN Reason: SALINE FLUSH Home Medications: Medications to take at Discharge Baclofen [Lioresal] 10 mg PO TID 04/27/19 Gabapentin [Neurontin] 400 mg PO TID 04/27/19 Escitalopram Oxalate [Lexapro] 10 mg PO DAILY #30 tab 04/28/19 Following Prescrptions Were Given to Patient: Escitalopram Oxalate [Lexapro] 10 mg PO DAILY #30 tab Transmission Status: Received by [employer] [facility] Primary Care Physician: Dionicio Armijo MD [Primary Care Provider] - Medical Necessity - Tobacco Use Smoking Status: Current every day smoker Tobacco Use: Cigarettes Meaningful Use Info Meaningful Use Diagnoses (Choose all that apply): None applicable Code Visit OBSV E&M: 57515 Observation care discharge
== END 2019-04-28 12:29 | disposition home or self-care (01) ==
LOC: ED 16:57 → PCU 18:53
PROVIDERS: Admitting Provider Internal Medicine; Emergency Provider Emergency Medicine; Family Provider Family Medicine; PCP Family Medicine; Visit Provider Internal Medicine
DX: R07.89 Other chest pain (principal); E87.6 Hypokalemia; G89.29 Other chronic pain; E66.9 Obesity, unspecified; F17.210 Nicotine dependence, cigarettes, uncomplicated; F31.9 Bipolar disorder, unspecified; F41.9 Anxiety disorder, unspecified; E86.0 Dehydration; R45.851 Suicidal ideations; Z86.711 Personal history of pulmonary embolism; Z86.718 Personal history of other venous thrombosis and embolism; Z79.899 Other long term (current) drug therapy; Z68.31 Body mass index [BMI] 31.0-31.9, adult; Z71.3 Dietary counseling and surveillance; G43.909 Migraine, unspecified, not intractable, without status migrainosus
CPT/HCPCS: 36415; 71275; 78452; 80048; 80061; 83735; 84100; 84132; 84443; 84484; 85025; 93005; 93017; 96361; 96372; 96374; 99218; 99251; 99285; 99406; A9500; J7030; J7040; J7120; Q9967; A4216; G0378; G0463; J3030

== ENCOUNTER 2019-08-18 23:35 | Emergency (ER) | payer BC, SELFPAY ==
[2019-04-27 19:06] VITALS: BMI 30.9
[2019-08-18 23:35] VITALS: BP 129/59; PULSE 92; RESP 16; TEMP 36.6; O2SAT 100; BMI 34.5
--- NOTE | 2019-08-19 00:07 | ED.VISSUMM ---
- ER Visit Summary Date of Service: 08/19/19 Chief Complaint: Left hand and wrist injury History of Present Illness: The patient is a 44 F who presents with injury to her left hand and wrist that occurred earlier this morning after a fall. Patient states she fell backward and landed on her outstretched left hand and wrist. Patient states her pain is worse with any bending or lifting with her left hand. Patient describes the pain is constant aching but sharp at times. Patient denies any head injury or loss of consciousness. Patient admits to some tingling in her left index finger. Patient denies any weakness. Physical Examination: Vital signs are stable. Patient is afebrile. Patient is in no acute distress. Musculoskeletal exam reveals tenderness, edema, and ecchymosis over the MP joint of the left thumb and distal first metacarpal. There is no bony crepitance or step-off. There is no deformity noted. Range of motion was limited in all motions of the left wrist and left thumb secondary to pain. There is no tenderness over the anatomic snuffbox. There is some tenderness over the radial aspect of the wrist. Sensation was intact to light touch in all digits. Capillary refill was less than 2 seconds in all digits. Radial pulses are equal bilaterally. Test Results: X-rays of the left hand and left wrist were obtained. There is no acute fracture. These were interpreted by the radiologist and reviewed by myself. Emergency Department Course and Treatment: Patient was advised of her findings. Patient was instructed to ice and elevate the left hand. Patient was given a thumb spica splint. Patient was instructed to take ibuprofen or Tylenol as needed for pain. Patient was instructed to follow-up with her primary care physician in 5 to 7 days for further evaluation. Patient understood and was agreeable with the plan. All questions were answered. Disposition: Discharge home Impression: Left thumb sprain This note was generated with [employer] dictation software. It may contain incorrect words, spelling, and punctuation that were not noted in review of the chart prior to signing ED Disposition - Plan for ED Patient: Disposition: Home or Assisted Living Diagnosis: Left thumb sprain Instructions: ED Sprain Finger Referrals: Dionicio Armijo MD [Primary Care Provider] - 5-7 Days
--- NOTE | 2019-08-19 00:10 | RAD_ITS ---
STUDY: X-RAY - LEFT HAND REASON FOR EXAM: Female, 44 years old. PT FELL TONIGHT, LATERAL LT WRIST PAIN, 1ST DIGIT PAIN, PT UNABLE TO REMOVE RING DUE TO FINGER SWELLING TECHNIQUE: 3 view(s) of the hand. COMPARISON: None. FINDINGS: Normal radiocarpal articulation. Normal distal radioulnar joint. Normal visualized carpal bones. Normal carpal articulations Normal carpometacarpal articulation of the thumb. Normal second through fifth carpometacarpal joints. Normal metacarpi. Normal metacarpophalangeal joint of the thumb. Normal interphalangeal joint of the thumb. Normal proximal and distal phalanges of the thumb. Normal metacarpophalangeal joints of the second through fifth fingers. Normal proximal and distal interphalangeal joints of the second through fifth fingers. Normal phalanges of the second through fifth fingers. The soft tissue structures are unremarkable. RAD/Hand Min 3 Views IMPRESSION: Normal x-ray examination of the hand. Electronically Signed: Kaci Truong MD at 0:28 EDT , Service support ,
--- NOTE | 2019-08-19 00:10 | RAD_ITS ---
STUDY: X-RAY - LEFT WRIST REASON FOR EXAM: Female, 44 years old. PT FELL TONIGHT, LATERAL LT WRIST PAIN, 1ST DIGIT PAIN, PT UNABLE TO REMOVE RING DUE TO FINGER SWELLING TECHNIQUE: 3 view(s) of the wrist were obtained. COMPARISON: None. FINDINGS: Normal visualized distal radius and ulna. Normal radiocarpal articulation. Normal distal radioulnar articulation. Normal carpal bones. Normal carpal articulations. Normal carpometacarpal articulation of the thumb. Normal second through fifth carpometacarpal articulations. Normal visualized metacarpal bones. The soft tissue structures are unremarkable. There is no demonstrated acute fracture. RAD/Wrist min 3 Views IMPRESSION: Normal x-ray examination of the wrist. Electronically Signed: Kaci Truong MD at 0:29 EDT , Service support ,
[2019-08-19 01:20] VITALS: BP 118/71; PULSE 74; RESP 17; O2SAT 99
== END 2019-08-19 01:21 | disposition home or self-care (01) ==
PROVIDERS: Emergency Provider Emergency Medicine; PCP Family Medicine
DX: S63.602A Unspecified sprain of left thumb, initial encounter (principal); W19.XXXA Unspecified fall, initial encounter; Y93.9 Activity, unspecified; Y92.9 Unspecified place or not applicable; M79.7 Fibromyalgia; Z72.0 Tobacco use
CPT/HCPCS: 73110; 73130; 99283

== ENCOUNTER 2020-04-26 00:24 | Emergency (ER) | payer BC, SELFPAY ==
[2020-04-26 00:25] VITALS: BP 136/103; PULSE 93; RESP 18; TEMP 36; O2SAT 100; BMI 32.2
--- NOTE | 2020-04-26 01:02 | ED.DCSUM_ITS ---
History of Present Illness Chief Complaint: Flank Pain Informant: Patient Narrative: Stated she developed left lower flank pain started 4 PM acutely. Sharp pain associated with nausea. History of multiple kidney stones in the past 2 to 3/year. She has not had any for over a year however. She normally passes them. She had 1 stent remotely. No active urologist. She Aleve today with minimal relief of pain. Has noticed some hematuria. She has urge to urinate as well. Current severity is mild to moderate. - Past Medical History (1) Atypical chest pain Status: Acute (2) Dehydration Status: Acute (3) Hypokalemia Status: Acute (4) Nausea Status: Acute (5) Sinus tachycardia Status: Acute (6) Bipolar 1 disorder Status: Chronic (7) History of migraine Status: Chronic (8) History of venous thromboembolism Status: Chronic (9) Lumbar back pain Status: Chronic (10) Obesity (BMI 30.0-34.9) Status: Chronic (11) Smoking addiction Status: Chronic Comment: F17.200 (12) Acute respiratory failure with hypoxemia Status: Inactive (13) CAP (community acquired pneumonia) Status: Inactive (14) Headache Status: Inactive Past Medical History - Allergies and Home Meds Allergies/Adverse Reactions: Allergies adhesive tape Allergy (Verified 04/26/20 00:38) Swelling Penicillins Allergy (Verified 04/26/20 00:38) Anaphylaxis bupropion [From Wellbutrin] Adverse Reaction (Verified 04/26/20 00:38) Other diphenhydramine HCl [From Benadryl] Adverse Reaction (Verified 04/26/20 00:38) IV route causes panic attack. can take po Primary Care Physician: Dionicio Armijo MD [Primary Care Provider] - Prior records reviewed: Yes Past Medical History: - - Problem list Surgical History: hysterectomy - GURPREET with BSO for cancer Lives: With Family Smoking Status: Current every day smoker Alcohol: None Drugs: None - Family History Maternal Family History: Reports: No pertinent history Paternal Family History: Reports: No pertinent history Review of Systems General: Denies: Chills, Fever, Sweats Eyes: Denies: Visual changes - bilaterally, Diplopia ENT: Denies: Rhinorrhea, Sore throat Cardiovascular: Denies: Chest pain, Palpitations Respiratory: Denies: Dyspnea, Cough, Dyspnea on exertion Gastrointestinal: Denies: Abdominal pain, Nausea, Vomiting, Diarrhea, Melena, Hematochezia Genitourinary: Denies: Dysuria, Hematuria, Frequency Musculoskeletal: Reports: Back pain. Denies: Extremity Pain Skin: Denies: Rash, Wounds Neurological: Denies: Headache, Weakness, Numbness Physical Exam Vital Signs/Narrative: Vital Signs Temp Pulse Resp BP Pulse Ox 04/26/20 00:25 96.8 F L 93 18 136/103 H 100 General: Well nourished, Well developed, No Acute Distress Head: Normocephalic, Atraumatic Eyes: Perrl, EOMI ENT: Moist mucous membranes, No rhinorrhea Neck: Supple, Nontender Cardiovascular: Regular rate, Regular rhythm, No murmurs Respiratory: No distress, CTA bilaterally, Chest nontender Abdomen: Soft, Nontender, Nondistended, Normal bowel sounds Back: Nontender, Normal Inspection Extremities: Nontender, No edema Skin: Normal color, No rash Neurological: Alert, Oriented x3, Cranial nerves II-XII grossly intact, Normal Strength, Normal Sensation Psychological: Normal affect, Normal Mood Diagnostic/Tx/Re-eval - Medical Decision Making Patient given IV fluids Toradol morphine Zofran. Lab work obtained. Lab work shows nitrates and white blood cells red blood cells and 3+ bacteria consistent with UTI. This may just be a Abe. She is not acting like a kidney stone. Will be given Bactrim for home. Does not want IV antibiotics prior to going home. Will use Zofran and Percocet as needed as well. Electrolytes unremarkable. I do not feel she needs a CT of her flank at this time. We will follow-up as an outpatient with urology ED Disposition - Plan for ED Patient: Disposition: Home or Assisted Living Diagnosis: Flank pain, Pyelonephritis Instructions: ED Kidney Stone w/ Colic, ED Pyelonephritis, Female (Adult) Prescriptions: Smz/Tmp Ds [Bactrim Ds] 1 tab PO BID #14 tab Transmission Status: Pending to [facility] Oxycodone HCl/Acetaminophen [Percocet 5/325] 1 - 2 tab PO Q6H PRN PRN 3 Days #12 tab PRN Reason: Pain Prescription Printed Ondansetron [Zofran Odt] 8 mg PO Q8H PRN PRN #20 tab PRN Reason: Nausea Transmission Status: Pending to [facility] Referrals: Dionicio Armijo MD [Primary Care Provider] - Cara Doshi MD [STAFF PHYSICIAN] -
[2020-04-26] MEDS: 0.9% Normal Saline 1,000 ML 250 ML IV (01:11)
[2020-04-26] MEDS: Ketorolac 15 MG/ML Vial IV (01:11)
[2020-04-26] MEDS: Ondansetron 4 MG/2 ML Vial IV (01:11)
[2020-04-26] MEDS: Morphine 4 MG/ML Syringe IV (01:11)
[2020-04-26 01:18] LABS: Anion Gap 7 (5-15); BUN 14 mg/dL (7-18); BUN/Creat Ratio 21.1 RATIO (10-20); Chloride 109 mmol/L (98-107); Creatinine, Serum 0.66 mg/dL (0.55-1.02); EST Glomerular Filtration Rate 103 mL/min (>60); Est Glom Filt Rate - Afr Amer 125 mL/min (>60); Estimated Creatinine Clearance 116.05 ml/min; Glucose 94 mg/dL (74-106); Potassium 3.6 mmol/L (3.5-5.1); Sodium Level 139 mmol/L (136-145)
[2020-04-26 01:30] LABS: Color, Urine Brown (Yellow); Glucose, Dipstick Normal (Normal); Ketone-Dipstick 5 mg/dl (Negative); Leukocyte Esterase-Dipstick 500 /ul (Negative); Mucous, Urine 0 SEEN /hpf (<or=2+); Nitrite-Dipstick Positive (Negative); Occult Blood-Urine 250 /ul (Negative); Protein-Dipstick 100 mg/dl (Negative); Specific Gravity, Urine 1.025 (1.002-1.030); Urine Clarity Cloudy (Clear); Urine Urobilinogen 4 mg/dl (Normal)
[2020-04-26 01:31] LABS: Urine Bilirubin Dipstick 1 mg/dL (Negative)
[2020-04-26 01:36] LABS: Red Blood Cells-Urine > 100 SEEN /hpf (0-5)
[2020-04-26 01:37] LABS: Squamous Epithelial Cells - UA 0-5 SEEN /hpf (5-10)
[2020-04-26 01:38] LABS: Bacteria 3+ /hpf (None Seen); White Blood Cells 10-25 SEEN /hpf (0-5)
[2020-04-26] MEDS: Morphine 2 MG/ML Syringe IV (02:01)
[2020-04-26] MEDS: Smz/Tmp Ds Tablet 1 TABLET PO (02:01)
[2020-04-26 02:19] VITALS: BP 151/88; PULSE 86; RESP 18; O2SAT 100
== END 2020-04-26 02:19 | disposition home or self-care (01) ==
PROVIDERS: Emergency Provider Emergency Medicine; PCP Family Medicine
DX: N12 Tubulo-interstitial nephritis, not specified as acute or chronic (principal); F17.200 Nicotine dependence, unspecified, uncomplicated; E66.9 Obesity, unspecified; Z87.442 Personal history of urinary calculi; Z90.710 Acquired absence of both cervix and uterus; Z90.722 Acquired absence of ovaries, bilateral; Z88.8 Allergy status to other drugs, medicaments and biological substances; Z88.0 Allergy status to penicillin
CPT/HCPCS: 80048; 81001; 87086; 87088; 96361; 96374; 96375; 99285; J7030; A4216; J2405

== ENCOUNTER 2020-10-04 02:03 | Emergency (ER) | payer BC, SELFPAY ==
[2020-10-04 02:05] VITALS: BP 156/111; PULSE 88; RESP 16; TEMP 36.9; O2SAT 100; BMI 32.0
--- NOTE | 2020-10-04 02:10 | EKG12_ITS ---
Test Reason : ABD PAIN Blood Pressure : / mmHG Vent. Rate : 086 BPM Atrial Rate : 086 BPM P-R Int : 144 ms QRS Dur : 068 ms QT Int : 374 ms P-R-T Axes : 042 030 038 degrees QTc Int : 447 ms Normal sinus rhythm Normal ECG Confirmed by BEBO SHELTON, NICOLE ([id number]), international editorial producer AJAY DE LA O ([id number]) on 10/08/2020 1:55:34 PM Referred By: KAYLA Confirmed By:NICOLE LAGUNAS MD
--- NOTE | 2020-10-04 02:11 | CT_ITS ---
EXAM: CT ABDOMEN AND PELVIS WITH INTRAVENOUS CONTRAST : 1975 CLINICAL INDICATION: RUQ abd pain TECHNIQUE: Helically acquired images were obtained of the abdomen and pelvis with intravenous contrast. This CT exam was performed using one or more of the following dose reduction techniques: automated exposure control, adjustment of the mA and/or kV according to patient size, and/or use of iterative reconstruction technique. This report was created using [employer] report generation technology. CONTRAST: IV 100mL [id number] COMPARISON: 08/11/2018 FINDINGS: LOWER THORAX: Unremarkable. Lung bases are clear. No cardiomegaly. No significant pericardial effusion. ABDOMEN: LIVER: Unremarkable. Homogeneous. No focal mass. GALLBLADDER AND BILE DUCTS: Unremarkable. No calcified gallstones. No gallbladder distention or wall edema. No intra- or extrahepatic biliary ductal dilation. PANCREAS: Unremarkable. No focal cystic or solid mass. SPLEEN: Unremarkable. Normal size without focal cystic or solid mass. ADRENALS: Unremarkable. No nodules. KIDNEYS AND URETERS: Unremarkable. Normal renal size and position. No hydronephrosis. STOMACH AND BOWEL: There is thickening of the wall of the distal stomach which may be due to incomplete distention however inflammatory or infiltrative process cannot be excluded. There are fluid-filled borderline dilated loops of small bowel which may represent mild enteritis. PELVIS: APPENDIX: No evidence of acute appendicitis. BLADDER: Unremarkable. REPRODUCTIVE: Unremarkable as visualized. No mass. ABDOMEN and PELVIS: INTRAPERITONEAL SPACE: Unremarkable. No ascites or other fluid collection. No free air. BONES/JOINTS: Unremarkable. No suspicious lytic or blastic abnormality. SOFT TISSUES: Unremarkable. No discrete abdominal or pelvic wall hernia. VASCULATURE: Unremarkable. Abdominal aorta is non-dilated. LYMPH NODES: Unremarkable. No enlarged lymph nodes. CT/Abdomen/Pelvis W IV Cont ONLY IMPRESSION: 1. Thickening of the wall the distal stomach which may be due to incomplete distention however gastritis cannot be excluded. If indicated further evaluation with upper endoscopy may be beneficial. 2. Fluid-filled loop of small bowel midabdomen which may represent mild enteritis. Individualized dose optimization techniques were used for this CT. at 0333 Reported and signed by: Ryan Cuello MD Electronically Signed: Ryan Cuello MD at 3:31 EDT Tel , Service support ,
[2020-10-04 02:12] VITALS: BP 156/111; PULSE 94; RESP 16; TEMP 36.9; O2SAT 97
[2020-10-04 02:25] LABS: Absolute Lymphocyte Count 3.09 X10^3/uL (0.83-4.51); Absolute Neutrophil Count 4.2 X10^3/uL (2.0-7.7); Basophil# 0.03 X10^3/uL; Basophil% 0.4 % (0-1); Eosinophil# 0.15 X10^3/uL; Eosinophils% 1.8 % (0-5); Hemoglobin 13.5 g/dL (12.0-15.0); Lymphocyte # 3.09 X10^3/ul (0.83-4.51); Lymphocyte % 37.8 % (19-41); Mean Corp Hgb Conc 33.8 g/dL (32-36); Mean Corpuscular Hgb 30.8 pg (27.0-32.0); Mean Corpuscular Volume 91.1 fL (81-99); Mean Platelet Vol. 10.5 fl (6.2-12.0); Monocyte# 0.65 X10^3/uL; NRBC Flagged by Analyzer 0 % (0-5); Neutrophil # 4.24 X10^3/uL (2.7-7.7); Neutrophil % 51.9 % (47-70); Platelet Count 260 K/mm3 (150-450); RBC Distribution Width CV 13.3 % (11.6-14.6); RBC Distribution Width SD 44.9 fl (35.1-43.9); Red Blood Count 4.39 M/mm3 (4.2-5.4); White Blood Count 8.2 K/mm3 (4.4-11.0)
[2020-10-04] MEDS: Ondansetron 4 MG/2 ML Vial IV (02:33)
[2020-10-04] MEDS: Morphine 4 MG/ML Syringe 6 MG IV (02:33)
[2020-10-04] MEDS: 0.9% Normal Saline 1,000 ML 1000 ML IV (02:33)
[2020-10-04 02:37] LABS: Internal QC Validated? YES +Cl - CLEAR BKGD; Pregnancy, Serum, hCG Quali. NEGATIVE Negative
[2020-10-04 02:47] LABS: AST(SGOT) 22 U/L (15-37); Alanine Aminotransfer ALT/SGPT 18 U/L (13-56); Albumin, Serum 3.5 g/dL (3.2-5.0); Alkaline Phosphatase 114 U/L (45-117); Anion Gap 7 (5-15); BUN 15 mg/dL (7-18); BUN/Creat Ratio 21.2 RATIO (10-20); Bilirubin, Direct < 0.05 mg/dL (0.00-0.30); Calcium,Total 9.1 mg/dL (8.5-10.1); Chloride 109 mmol/L (98-107); Creatinine, Serum 0.71 mg/dL (0.55-1.02); EST Glomerular Filtration Rate 96 mL/min (>60); Est Glom Filt Rate - Afr Amer 116 mL/min (>60); Estimated Creatinine Clearance 106.77 ml/min; Globulin 3.6 g/dL (2.2-4.2); Glucose 103 mg/dL (74-106); Lipase 56 U/L (73-393); Potassium 3.7 mmol/L (3.5-5.1); Protein, Total 7.1 g/dL (6.4-8.2); Sodium Level 140 mmol/L (136-145)
[2020-10-04 02:57] LABS: Lactic Acid 0.8 mmol/L (0.4-1.9)
[2020-10-04 03:14] LABS: Color, Urine Yellow (Yellow); Glucose, Dipstick Normal (Normal); Ketone-Dipstick Negative (Negative); Leukocyte Esterase-Dipstick 500 /ul (Negative); Nitrite-Dipstick Negative (Negative); Occult Blood-Urine 25 /ul (Negative); Protein-Dipstick 15 mg/dl (Negative); Urine Bilirubin Dipstick Negative (Negative); Urine Clarity Sl. Cloudy (Clear); Urine Urobilinogen 4 mg/dl (Normal)
[2020-10-04 03:23] LABS: Bacteria 1+ /hpf (None Seen); Calcium Oxalate Crystals Ur RARE /hpf (<or=2+); Mucous, Urine 2+ /hpf (<or=2+); Red Blood Cells-Urine 0-5 SEEN /hpf (0-5); Squamous Epithelial Cells - UA 0-5 SEEN /hpf (5-10); White Blood Cells 5-10 SEEN /hpf (0-5)
[2020-10-04] MEDS: Mag Hydrox/Al Hydrox/Simeth 30 ML UDC PO (04:10)
[2020-10-04] MEDS: Famotidine 200 MG/20 ML MDV 20 MG in 0.9% Normal Saline (Pres. free 8 ML 300 MG IV (04:10)
[2020-10-04 04:15] VITALS: BP 99/63; PULSE 66; RESP 16; O2SAT 100
--- NOTE | 2020-10-04 04:46 | ED.VIS.GI ---
HPI HPI - GI History of Present Illness Chief Complaint: Abd Pain Informant: patient Narrative Narrative: Patient is a 45-year-old female presenting with abdominal pain. Patient states she has not had a bowel movement in the past 2 to 3 days. She has had some associated low back pain and then developed abdominal pain. She states she has been having mild pains that started worse around 6 PM. She is states is mostly of her right upper quadrant. It comes in waves. She has associated nausea and vomiting. She denies any urinary symptoms. She does have a history of kidney stones. She denies associated chest pain, shortness of breath or difficulty breathing. She is not tried any [id number] medications for this. She denies any alcohol use. Patient states she never had any like this before. She has no other complaints at this time. [facility] Medical History Fibromyalgia Kidney stones Migraines Home Medications baclofen 10 mg PO TID 04/27/19 [History Last Taken 04/27/19] gabapentin 400 mg PO TID 04/27/19 [History Last Taken 04/27/19] ondansetron 8 mg PO Q8H PRN PRN #20 tab 04/26/20 [Rx Last Taken Unknown] sulfamethoxazole-trimethoprim 1 tab PO BID #14 tab 04/26/20 [Rx Last Taken Unknown] sumatriptan succinate 100 mg PO .X1 PRN 04/26/20 [History Last Taken Unknown] famotidine [Pepcid] 20 mg PO BID #20 tab 10/04/20 [Rx Last Taken Unknown] sulfamethoxazole-trimethoprim [Bactrim DS] 1 tab PO Q12H #14 tab 10/04/20 [Rx Last Taken Unknown] Allergy/AdvReac Type Severity Reaction Status Date / Time adhesive tape Allergy Swelling Verified 04/26/20 00:38 Penicillins Allergy Anaphylaxis Verified 04/26/20 00:38 bupropion [From Wellbutrin] AdvReac Other Verified 04/26/20 00:38 diphenhydramine HCl AdvReac IV route Verified 04/26/20 00:38 [From Benadryl] causes panic attack. can take po Social History Smoking Status: Current every day smoker tobacco type: cigarettes ROS ROS ED Constitutional Constitutional ED: Denies fatigue or weakness Eyes Eyes: Denies blurry vision or other visual disturbances Cardiovascular Cardiovascular: Denies chest pain Respiratory/Chest Respiratory/Chest: Denies cough or dyspnea Gastrointestinal Gastrointestinal: Reports abdominal pain, nausea and vomiting Genitourinary Genitourinary ED: Denies decreased urination, dysuria or hematuria Musculoskeletal Musculoskeletal: Reports back pain and other Details: no leg swelling ; Denies extremity pain Integumentary Denies new lesions or rash Neurologic Neurologic: Denies paresthesias or weakness Psychiatric Psychiatric: Denies anxiety or depression Hematologic/Lymphatic Hematologic/Lymphatic: Denies easy bleeding or easy bruising EXAM Physical Exam Const Vital Signs: 10/04/20 02:05 10/04/20 02:12 10/04/20 04:15 Temperature 98.4 F 98.4 F Temperature Source Temporal Temporal Pulse Rate 88 94 66 Respiratory Rate 16 16 16 Blood Pressure 156/111 H 156/111 H 99/63 Blood Pressure Mean 126 126 75 Pulse Ox 100 97 100 Oxygen Delivery Method Nasal Cannula Room Air Room Air 10/04/20 05:30 Temperature Temperature Source Pulse Rate 69 Respiratory Rate 18 Blood Pressure 116/87 H Blood Pressure Mean Pulse Ox 95 Oxygen Delivery Method Positive well nourished, well developed, alert and oriented x3 General Appearance ED: well developed and other Patient crying HEENT Reports normocephalic and moist mucous membranes normocephalic Mouth ED: Yes moist mucous membranes normal Eyes PERRL and EOMs intact bilaterally General Eye ED: Yes normal appearance of both eyes Pupil: PERRL Neck supple and no JVD Lymph Lymphatic: no lymphadenopathy noted Chest Wall inspection of chest normal and palpation of chest normal Resp normal respiratory effort, normal air movement and clear to auscultation bilaterally Cardio regular rate and regular rhythm Peripheral Pulses: pulses 2+ throughout GI non-tender, non-distended and no masses Auscultation: normoactive bowel sounds Palpation: soft Back/Spine no CVA tenderness and normal to inspection Thoracic Spine / Upper Back: Negative for thoracic spinal tenderness Lumbar Spine / Lower Back: Negative for lumbar spinal tenderness Extremity normal to inspection and full ROM General Extremety ED: Negative for edema General Extremity: Negative for edema Neuro oriented x3, moves all extremities and no focal motor deficits Sensorium / Orientation: alert Psych mental status grossly normal and thought process normal Mood & Affect: anxious Skin no rashes or lesions noted and no petechiae Lesions: no lesions Rashes: no rashes MDM MDM MDM Narrative Medical decision making narrative: Patient is evaluated for abdominal pain. On my initial evaluation patient is thrashing around the bed and tearful. She appears uncomfortable. She does not have reproducible tenderness on exam. She is given IV fluids, Zofran and morphine. She does have slight improvement of her pain but continues to complain of some epigastric discomfort. Patient is an treated with GI cocktail and Pepcid. On reevaluation she is now resting comfortably. Lipase is normal. CMP is unremarkable. Troponin is negative. CBC is normal. Urine is negative. Urinalysis show finding consistent with UTI. Urine culture sent. Patient started on Bactrim as she has a anaphylactic allergy to penicillin. CT of the abdomen pelvis shows fine system with gastritis and possible enteritis. This is consistent with patient's presentation. At this time she does not have any acute surgical emergency. She will be started on Pepcid as she is not currently on any antacids as well as Bactrim for UTI. She is instructed to take Tylenol as needed for pain. Patient is counseled that her back pain should improve when she is treated for the UTI. I do not think is referred cardiac pain. Her EKG is normal. Patient is counseled on signs and symptoms requiring return to the emergency room. Patient verbalizes agreement and understand this plan. Patient discharged home in stable and improved condition. Lab Data Attestation: I reviewed the patient's lab results. Labs: Laboratory Results - last 24 hr 10/04/20 10/04/20 10/04/20 02:20 02:20 02:20 WBC 8.2 RBC 4.39 Hgb 13.5 Hct 40.0 MCV 91.1 MCH 30.8 MCHC 33.8 RDW Std Deviation 44.9 H RDW Coeff of Flavia 13.3 Plt Count 260 MPV 10.5 Immature Gran % (Auto) 0.100 Neut % (Auto) 51.9 Lymph % (Auto) 37.8 [place] % (Auto) 8.0 Eos % (Auto) 1.8 Baso % (Auto) 0.4 Absolute Neuts (auto) 4.2 Absolute Lymphs (auto) 3.09 Nucleated RBC % 0 Sodium 140 Potassium 3.7 Chloride 109 H Carbon Dioxide 24.0 Anion Gap 7 BUN 15 Creatinine 0.71 Estim Creat Clear Calc 106.77 Est GFR (MDRD) Af Amer 116 Est GFR (MDRD) Non-Af 96 BUN/Creatinine Ratio 21.2 H Glucose 103 Lactic Acid Calcium 9.1 Total Bilirubin 0.30 Direct Bilirubin < 0.05 AST 22 ALT 18 Alkaline Phosphatase 114 Troponin I < 0.015 Total Protein 7.1 Albumin 3.5 Globulin 3.6 Lipase 56 L Serum , Qual NEGATIVE Urine Color Urine Clarity Urine pH Ur Specific [place] Urine Protein Urine Glucose (UA) Urine Ketones Urine Occult Blood Urine Nitrite Urine Bilirubin Urine Urobilinogen Ur Leukocyte Esterase Urine RBC Urine WBC Ur Squamous Epith Cells Calcium Oxalate Crystal Urine Bacteria Urine Mucus 10/04/20 10/04/20 02:24 03:05 WBC RBC Hgb Hct MCV MCH MCHC RDW Std Deviation RDW Coeff of Flavia Plt Count MPV Immature Gran % (Auto) Neut % (Auto) Lymph % (Auto) [place] % (Auto) Eos % (Auto) Baso % (Auto) Absolute Neuts (auto) Absolute Lymphs (auto) Nucleated RBC % Sodium Potassium Chloride Carbon Dioxide Anion Gap BUN Creatinine Estim Creat Clear Calc Est GFR (MDRD) Af Amer Est GFR (MDRD) Non-Af BUN/Creatinine Ratio Glucose Lactic Acid 0.8 Calcium Total Bilirubin Direct Bilirubin AST ALT Alkaline Phosphatase Troponin I Total Protein Albumin Globulin Lipase Serum , Qual Urine Color Yellow Urine Clarity Sl. Cloudy Urine pH 6.0 Ur Specific [place] 1.020 Urine Protein 15 H Urine Glucose (UA) Normal Urine Ketones Negative Urine Occult Blood 25 H Urine Nitrite Negative Urine Bilirubin Negative Urine Urobilinogen 4 H Ur Leukocyte Esterase 500 H Urine RBC 0-5 SEEN Urine WBC 5-10 SEEN Ur Squamous Epith Cells 0-5 SEEN Calcium Oxalate Crystal RARE Urine Bacteria 1+ Urine Mucus 2+ Radiography Diagnostic Testing: Radiology Impression Abdomen/Pelvis CT 10/04/20 02:11 IMPRESSION: 1. Thickening of the wall the distal stomach which may be due to incomplete distention however gastritis cannot be excluded. If indicated further evaluation with upper endoscopy may be beneficial. 2. Fluid-filled loop of small bowel midabdomen which may represent mild enteritis. Individualized dose optimization techniques were used for this CT. at 0333 Reported and signed by: Ryan Cuello MD Electronically Signed: Ryan Cuello MD at 3:31 EDT Tel , Service support , Rhythm Strip Rhythm Strip: Sinus Rhythm Rate: 86 Ectopy: None EKG Initial EKG: Attestation: I personally reviewed and interpreted this EKG as follows: Interpretation: Sinus Rhythm Comments: Normal sinus rhythm rate of 86 Normal axis Normal intervals Normal ST segments Discharge Plan Triage Chief Complaint: Abd Pain ED Provider: Edwina Hunter Dx/Rx/DC Orders Clinical Impression: UTI (urinary tract infection), Gastritis Instructions: ED PEPTIC ULCER vs GASTRITIS, ED Bladder Infection, Female (Adult) Prescriptions: New sulfamethoxazole-trimethoprim [Bactrim DS] 800-160 mg tablet 1 tab PO Q12H Qty: 14 RF: 0 famotidine [Pepcid] 20 mg tablet 20 mg PO BID Qty: 20 RF: 0 No Action gabapentin 400 MG capsule 400 mg PO TID RF: 0 baclofen 10 MG tablet 10 mg PO TID RF: 0 sumatriptan succinate 100 MG tablet 100 mg PO .X1 PRN RF: 0 sulfamethoxazole-trimethoprim 1 TABLET tablet 1 tab PO BID Qty: 14 RF: 0 ondansetron 4 MG tablet 8 mg PO Q8H PRN PRN (Reason: Nausea) Qty: 20 RF: 0 Primary Care Provider: Dionicio Armijo Referrals: Dionicio Armijo MD [Primary Care Provider] - Disposition Disposition: Home, self care Discharge Date/Time: 10/04/20 05:32
[2020-10-04] MEDS: Smz/Tmp Ds Tablet 1 TABLET PO (05:25)
[2020-10-04 05:30] VITALS: BP 116/87; PULSE 69; RESP 18; O2SAT 95
== END 2020-10-04 05:32 | disposition home or self-care (01) ==
PROVIDERS: Emergency Provider Emergency Medicine; PCP Family Medicine
DX: N39.0 Urinary tract infection, site not specified (principal); K29.70 Gastritis, unspecified, without bleeding; M79.7 Fibromyalgia; F17.210 Nicotine dependence, cigarettes, uncomplicated; Z87.442 Personal history of urinary calculi
CPT/HCPCS: 36415; 74177; 80048; 80076; 81001; 83605; 83690; 84484; 84703; 85025; 87086; 87088; 93005; 96361; 96374; 96375; 99285; J7030; Q9967; A4216; J2405; J3490

== ENCOUNTER 2020-11-11 22:50 | Emergency (ER) | payer BC, SELFPAY ==
[2020-11-11 22:51] VITALS: BP 118/87; PULSE 88; RESP 17; TEMP 35.9; O2SAT 97; BMI 30.4
--- NOTE | 2020-11-11 23:20 | EDS_ITS ---
HPI History of Present Illness Chief Complaint: General Illness Narrative Narrative: Patient presenting secondary to what she believes is an exacerbation of her psoriasis. Patient reports that she has an underlying history of this, she is not on any sort of disease modifying medications. She states that typically her flares are only associated with severe rash on her scalp and severe pain. Last time she had this she states it was about 2 years ago. Patient states that about a week ago she used some new hair dye and she felt that it caused an exacerbation of this. She reports severely painful rash on her scalp that has been persistently draining. States that she is getting some swollen lymph nodes associated with this. Patient states that she has been trying to wash her hair, but it is almost too painful for her to even do that. Patient denies any fevers. She denies any other constitutional symptoms, but states that when she gets paroxysms of pain, occasionally it will make her fall. She denies that she has had any injuries from these falls. Review of systems otherwise negative. [facility] Medical History Fibromyalgia Kidney stones Migraines Psoriasis Home Medications baclofen 10 mg PO TID 04/27/19 [History Last Taken 04/27/19] gabapentin 400 mg PO TID 04/27/19 [History Last Taken 04/27/19] ondansetron 8 mg PO Q8H PRN PRN #20 tab 04/26/20 [Rx Last Taken Unknown] sulfamethoxazole-trimethoprim 1 tab PO BID #14 tab 04/26/20 [Rx Last Taken Unknown] sumatriptan succinate 100 mg PO .X1 PRN 04/26/20 [History Last Taken Unknown] famotidine [Pepcid] 20 mg PO BID #20 tab 10/04/20 [Rx Last Taken Unknown] sulfamethoxazole-trimethoprim [Bactrim DS] 1 tab PO Q12H #14 tab 10/04/20 [Rx Last Taken Unknown] hydrocodone-acetaminophen 1 tab PO Q8H PRN 3 Days #9 tab 11/11/20 [Rx Last Taken Unknown] prednisone 50 mg PO DAILY #4 tab 11/11/20 [Rx Last Taken Unknown] Allergy/AdvReac Type Severity Reaction Status Date / Time adhesive tape Allergy Swelling Verified 11/11/20 22:55 Penicillins Allergy Anaphylaxis Verified 11/11/20 22:55 bupropion [From Wellbutrin] AdvReac Other Verified 11/11/20 22:55 diphenhydramine HCl AdvReac IV route Verified 11/11/20 22:55 [From Benadryl] causes panic attack. can take po Social History Smoking Status: Current every day smoker tobacco type: cigarettes ROS ROS ED Constitutional Constitutional ED: Denies chills or fever(s) ENT ENT ED: Denies ear pain, rhinorrhea or sore throat Respiratory/Chest Respiratory/Chest: Denies cough or dyspnea Gastrointestinal Gastrointestinal: Denies nausea or vomiting Genitourinary Genitourinary ED: Denies dysuria Musculoskeletal Musculoskeletal: Denies arthralgias or myalgias Integumentary Reports rash Neurologic Neurologic: Denies headache(s) or weakness Psychiatric Psychiatric: Denies anxiety or depression Endocrine Endocrinology: Denies polydipsia or polyuria EXAM Physical Exam Const Vital Signs: 11/11/20 22:51 11/11/20 23:10 Temperature 96.7 F L Temperature Source Temporal Pulse Rate 88 Respiratory Rate 17 Respiratory Effort Normal Non-Labored Blood Pressure 118/87 H Blood Pressure Mean 97 Pulse Ox 97 Oxygen Delivery Method Room Air Positive well nourished and well developed General Appearance ED: well developed and NAD HEENT HEENT Narrative: Patient scalp does have evidence of diffuse rash with intermittent seepage. It is exquisitely tender to palpation. It does not appear to be vesicular. Patient does have some shotty swollen lymph nodes especially posterior cervical. No evidence of facial rashes. Normal range of motion of the neck. Neck supple Resp normal respiratory effort and clear to auscultation bilaterally Cardio regular rate, regular rhythm and no murmurs Extremity normal to inspection Neuro oriented x3 Sensorium / Orientation: alert Psych mental status grossly normal Skin Rashes: rashes noted MDM MDM MDM Narrative Medical decision making narrative: Patient is presenting with what she feels is a presentation of her psoriasis on her scalp. She does have a significant rash. Does not appear to be an obvious infection, either this is a contact dermatitis from her hair dye or is actually from psoriasis. Patient will be treated with a burst of prednisone. She does have pain, reviewed her prescription reporting record, does not seem to show a pattern of abuse she will be provided with a protracted prescription of pain medication. Patient was discharged in stable condition. Discharge Plan Triage Chief Complaint: General Illness ED Provider: Guanakito Rojas Dx/Rx/DC Orders Clinical Impression: Psoriasis Instructions: ED Psoriasis Prescriptions: New prednisone 50 mg tablet 50 mg PO DAILY Qty: 4 RF: 0 hydrocodone-acetaminophen 5-325 mg tablet 1 tab PO Q8H PRN (Reason: pain) 3 Days Qty: 9 RF: 0 No Action gabapentin 400 MG capsule 400 mg PO TID RF: 0 baclofen 10 MG tablet 10 mg PO TID RF: 0 sumatriptan succinate 100 MG tablet 100 mg PO .X1 PRN RF: 0 sulfamethoxazole-trimethoprim 1 TABLET tablet 1 tab PO BID Qty: 14 RF: 0 ondansetron 4 MG tablet 8 mg PO Q8H PRN PRN (Reason: Nausea) Qty: 20 RF: 0 sulfamethoxazole-trimethoprim [Bactrim DS] 800-160 mg tablet 1 tab PO Q12H Qty: 14 RF: 0 famotidine [Pepcid] 20 mg tablet 20 mg PO BID Qty: 20 RF: 0 Primary Care Provider: Dionicio Armijo Referrals: Dionicio Armijo MD [Primary Care Provider] - 5-7 Days Disposition Disposition: Home, Self Care
[2020-11-11] MEDS: predniSONE 20 MG Tablet 60 MG PO (23:27)
[2020-11-11] MEDS: oxyCODONE 5 MG Tablet PO (23:27)
== END 2020-11-11 23:38 | disposition home or self-care (01) ==
PROVIDERS: Emergency Provider Emergency Medicine; PCP Family Medicine
DX: L40.9 Psoriasis, unspecified (principal); F17.210 Nicotine dependence, cigarettes, uncomplicated
CPT/HCPCS: 99284

== ENCOUNTER 2021-03-09 06:54 | Emergency (ER) | payer BC, SELFPAY ==
[2021-03-09 06:55] VITALS: BP 177/116; PULSE 91; RESP 16; TEMP 36.4; O2SAT 100; BMI 33.0
--- NOTE | 2021-03-09 07:09 | CT_ITS ---
STUDY: CT ABDOMEN AND PELVIS WITHOUT CONTRAST REASON FOR EXAM: Female, 45 years old. Kidney Stone RADIATION DOSAGE (If Supplied By Facility): CTDIvol = ( 20.00 ) mGy, DLP = ( 1069.06 ) mGycm TECHNIQUE: Transaxial images were obtained from the dome of the diaphragm to the symphysis pubis without oral contrast, and without intravenous contrast. Sagittal and coronal images were reconstructed. Individualized dose optimization techniques were used for this CT. COMPARISON: CT abdomen and pelvis with IV contrast 10/04/2020 FINDINGS: The visualized lung bases are unremarkable. The visualized portions of the heart are within normal limits. Normal liver. The portal vein diameter is 15.5 mm. Normal gallbladder and extrahepatic biliary system. The diameter of the common bile duct reaches 8.5 mm. Normal spleen. Normal pancreas. Normal bilateral adrenal glands. Normal size right kidney. Normal size left kidney. Better seen today without IV contrast are numerous bilateral nonobstructing calyceal stones, the largest on either side measuring approximately 5 mm in greatest diameter. There is right hydroureteronephrosis down to a 3 mm stone at the right ureterovesical junction. Normal visualized stomach. Normal small intestine. Normal colon. The appendix is visualized and appears normal. There is mild atherosclerotic calcification of the distal abdominal aorta, without a demonstrated aneurysm. Normal inferior vena cava. Normal retroperitoneum. Normal urinary bladder. There is absence of the uterus consistent with a prior hysterectomy. Normal abdominal wall. There are minor degenerative changes of the visualized lower lumbar spine. Incidental note of spina bifida occulta at S1. CT/Abdomen/Pelvis without Cont IMPRESSION: 1. Bilateral nephrolithiasis. Right hydroureteronephrosis down to a 3 mm stone at the ureterovesical junction. 2. Prior hysterectomy. Electronically Signed: Matt Manuel MD at 8:46 EDT , Service support ,
--- NOTE | 2021-03-09 07:09 | EX.ED.DYSGE1 ---
HPI History of Present Illness Chief Complaint: Flank Pain Informant: patient Narrative Narrative: 45-year-old female presents to the emergency department with urinary frequency and pelvic pressure. Patient states that she has a history of frequent urinary tract infections. She states that last night she developed pressure in her pelvis urinary frequency with urination of small amounts as well as right flank pain. She has a history of kidney stones and believes she passed a couple last night. No fevers. She notes nausea no vomiting. PFSH PFS Medical History (Updated 03/09/21 @ 08:[address] Nilson Humphries, ) Bipolar 1 disorder Fibromyalgia History of venous thromboembolism Kidney stones Migraines Psoriasis Psoriasis Home Medications baclofen 10 mg PO TID 04/27/19 [History Last Taken 04/27/19] gabapentin 400 mg PO TID 04/27/19 [History Last Taken 04/27/19] ondansetron 8 mg PO Q8H PRN PRN #20 tab 04/26/20 [Rx Last Taken Unknown] sulfamethoxazole-trimethoprim 1 tab PO BID #14 tab 04/26/20 [Rx Last Taken Unknown] sumatriptan succinate 100 mg PO .X1 PRN 04/26/20 [History Last Taken Unknown] famotidine [Pepcid] 20 mg PO BID #20 tab 10/04/20 [Rx Last Taken Unknown] sulfamethoxazole-trimethoprim [Bactrim DS] 1 tab PO Q12H #14 tab 10/04/20 [Rx Last Taken Unknown] hydrocodone-acetaminophen 1 tab PO Q8H PRN 3 Days #9 tab 11/11/20 [Rx Last Taken Unknown] prednisone 50 mg PO DAILY #4 tab 11/11/20 [Rx Last Taken Unknown] hydrocodone-acetaminophen 1 tab PO Q6H PRN PRN 3 Days #12 tablet 03/09/21 [Rx Last Taken Unknown] ketorolac 10 mg PO Q8H PRN 3 Days #9 tab 03/09/21 [Rx Last Taken Unknown] ondansetron 4 mg PO Q8H PRN PRN #12 tab 03/09/21 [Rx Last Taken Unknown] Allergy/AdvReac Type Severity Reaction Status Date / Time adhesive tape Allergy Swelling Verified 03/09/21 06:58 Penicillins Allergy Anaphylaxis Verified 03/09/21 06:58 bupropion [From Wellbutrin] AdvReac Other Verified 03/09/21 06:58 diphenhydramine HCl AdvReac IV route Verified 03/09/21 06:58 [From Benadryl] causes panic attack. can take po Surgical History (Updated 03/09/21 @ 07:[address] Nilson Humphries DO) H/O: hysterectomy Social History (Updated 03/09/21 @ 07:[address] Nilson Humphries DO) Smoking Status: Current every day smoker tobacco type: cigarettes substance use type: does not use ROS ROS ED Constitutional Constitutional ED: Denies chills, fever(s) or weight loss Eyes Eyes: Denies change in vision or diplopia ENT ENT ED: Denies ear pain, rhinorrhea or sore throat Cardiovascular Cardiovascular: Denies chest pain, orthopnea, palpitations or racing heartbeat Respiratory/Chest Respiratory/Chest: Denies cough, dyspnea or orthopnea Gastrointestinal Gastrointestinal: Reports nausea; Denies abdominal pain, diarrhea or vomiting Genitourinary Genitourinary ED: Reports dysuria and urinary frequency; Denies hematuria Musculoskeletal Musculoskeletal: Reports back pain; Denies arthralgias or myalgias Integumentary Denies abscess or rash Neurologic Neurologic: Denies headache(s) or weakness Psychiatric Psychiatric: Denies anxiety, depression, suicidal ideation or suicidal thoughts Endocrine Endocrinology: Denies polydipsia, polyphagia or polyuria Allergic/Immunologic Allergic/Immunologic ED: Denies mouth swelling, tongue swelling or urticaria EXAM Physical Exam Const Vital Signs: 03/09/21 06:55 Temperature 97.6 F L Temperature Source Oral Pulse Rate 91 Respiratory Rate 16 Blood Pressure 177/116 H Blood Pressure Mean 136 Pulse Ox 100 Oxygen Delivery Method Room Air Positive well nourished, well developed and obese General Appearance ED: well developed Nutritional Appearance: obese HEENT Reports normocephalic, head/scalp atraumatic, TM's clear and moist mucous membranes Negative for trauma Tympanic Membrane ED: Yes TM's clear Eyes PERRL and EOMs intact bilaterally Neck no lymphadenopathy, supple and no JVD Resp normal respiratory effort and clear to auscultation bilaterally Cardio regular rate, regular rhythm and no murmurs GI normal to inspection, nondistended, normoactive bowel sounds and non-tender Palpation: soft Back/Spine normal ROM General Back: CVA tenderness right Extremity normal to inspection General Extremety ED: Negative for edema General Extremity: Negative for edema Neuro oriented x3 and CN's II-XII intact bilaterally Sensorium / Orientation: alert Motor Exam: strength 5/5 throughout Psych mental status grossly normal Mood & Affect: Negative for depressed or tearful Skin no rashes or lesions noted and no wounds MDM MDM MDM Narrative Medical decision making narrative: CBC normal BMP with a creatinine of 0.76. Urinalysis shows 5-10 red cells no overt infection. Patient received Toradol morphine and Zofran and fluids. CT of the abdomen pelvis without contrast demonstrates a distal ureteral stone with associated hydronephroureter. Patient will be discharged home with pain and nausea medications. Instructions to follow-up with urology if not improving return if worsening or concerns Lab Data Attestation: I reviewed the patient's lab results. Labs: Laboratory Results - last 24 hr 03/09/21 03/09/21 03/09/21 07:00 07:28 07:28 WBC 6.8 RBC 4.61 Hgb 14.1 Hct 42.9 MCV 93.1 MCH 30.6 MCHC 32.9 RDW Std Deviation 45.2 H RDW Coeff of Flavia 13.2 Plt Count 259 MPV 10.1 Immature Gran % (Auto) 0.100 Neut % (Auto) 62.0 Lymph % (Auto) 28.1 [place] % (Auto) 7.6 Eos % (Auto) 1.6 Baso % (Auto) 0.6 Absolute Neuts (auto) 4.2 Absolute Lymphs (auto) 1.92 Nucleated RBC % 0 Sodium 139 Potassium 3.6 Chloride 108 H Carbon Dioxide 24.0 Anion Gap 7 BUN 15 Creatinine 0.76 Estim Creat Clear Calc 96.28 Est GFR (MDRD) Af Amer 106 Est GFR (MDRD) Non-Af 88 BUN/Creatinine Ratio 19.7 Glucose 105 Calcium 9.1 Urine Color Yellow Urine Clarity Clear Urine pH 6.0 Ur Specific [place] 1.020 Urine Protein Negative Urine Glucose (UA) Normal Urine Ketones Negative Urine Occult Blood 150 H Urine Nitrite Negative Urine Bilirubin Negative Urine Urobilinogen Normal Ur Leukocyte Esterase 100 H Urine RBC 5-10 SEEN Urine WBC 0-5 SEEN Ur Squamous Epith Cells 0-5 SEEN Urine Bacteria RARE Urine Mucus 0 SEEN Discharge Plan Triage Chief Complaint: Flank Pain ED Provider: Nilson Humphries Dx/Rx/DC Orders Clinical Impression: Ureterolithiasis, Renal colic on right side Instructions: ED Kidney Stone w/ Colic Prescriptions: New hydrocodone-acetaminophen [hydrocodone-acetaminophen] 1 TABLET tablet 1 tab PO Q6H PRN PRN (Reason: Pain) 3 Days Qty: 12 RF: 0 ondansetron [ondansetron] 4 MG tablet 4 mg PO Q8H PRN PRN (Reason: Nausea) Qty: 12 RF: 0 ketorolac 10 mg tablet 10 mg PO Q8H PRN (Reason: pain) 3 Days Qty: 9 RF: 0 No Action gabapentin 400 MG capsule 400 mg PO TID RF: 0 baclofen 10 MG tablet 10 mg PO TID RF: 0 sumatriptan succinate 100 MG tablet 100 mg PO .X1 PRN RF: 0 sulfamethoxazole-trimethoprim 1 TABLET tablet 1 tab PO BID Qty: 14 RF: 0 ondansetron 4 MG tablet 8 mg PO Q8H PRN PRN (Reason: Nausea) Qty: 20 RF: 0 sulfamethoxazole-trimethoprim [Bactrim DS] 800-160 mg tablet 1 tab PO Q12H Qty: 14 RF: 0 famotidine [Pepcid] 20 mg tablet 20 mg PO BID Qty: 20 RF: 0 prednisone 50 mg tablet 50 mg PO DAILY Qty: 4 RF: 0 hydrocodone-acetaminophen 5-325 mg tablet 1 tab PO Q8H PRN (Reason: pain) 3 Days Qty: 9 RF: 0 Primary Care Provider: Dionicio Armijo Referrals: Jeff Almaguer MD [STAFF PHYSICIAN] - 3-5 Days if not improving Dionicio Armijo MD [Primary Care Provider] - Disposition Disposition: Home, Self Care
[2021-03-09] MEDS: Ondansetron 4 MG/2 ML Vial IV (07:26)
[2021-03-09 07:27] LABS: Mucous, Urine 0 SEEN /hpf (<or=2+)
[2021-03-09] MEDS: Ketorolac 30 MG/ML Syringe IV (07:27)
[2021-03-09 07:30] LABS: Color, Urine Yellow (Yellow); Glucose, Dipstick Normal (Normal); Ketone-Dipstick Negative (Negative); Leukocyte Esterase-Dipstick 100 /ul (Negative); Nitrite-Dipstick Negative (Negative); Occult Blood-Urine 150 /ul (Negative); Protein-Dipstick Negative (Negative); Urine Bilirubin Dipstick Negative (Negative); Urine Clarity Clear (Clear); Urine Urobilinogen Normal (Normal)
[2021-03-09 07:38] LABS: Absolute Lymphocyte Count 1.92 X10^3/uL (0.83-4.51); Absolute Neutrophil Count 4.2 X10^3/uL (2.0-7.7); Basophil# 0.04 X10^3/uL; Basophil% 0.6 % (0-1); Eosinophil# 0.11 X10^3/uL; Eosinophils% 1.6 % (0-5); Hematocrit 42.9 % (37-47); Hemoglobin 14.1 g/dL (12.0-15.0); Lymphocyte # 1.92 X10^3/ul (0.83-4.51); Lymphocyte % 28.1 % (19-41); Mean Corp Hgb Conc 32.9 g/dL (32-36); Mean Corpuscular Hgb 30.6 pg (27.0-32.0); Mean Corpuscular Volume 93.1 fL (81-99); Mean Platelet Vol. 10.1 fl (6.2-12.0); Monocyte# 0.52 X10^3/uL; Monocyte% 7.6 % (0-10); NRBC Flagged by Analyzer 0 % (0-5); Neutrophil # 4.24 X10^3/uL (2.7-7.7); Platelet Count 259 K/mm3 (150-450); RBC Distribution Width CV 13.2 % (11.6-14.6); RBC Distribution Width SD 45.2 fl (35.1-43.9); Red Blood Count 4.61 M/mm3 (4.2-5.4); White Blood Count 6.8 K/mm3 (4.4-11.0)
[2021-03-09 07:39] LABS: Bacteria RARE /hpf (None Seen); Red Blood Cells-Urine 5-10 SEEN /hpf (0-5); Squamous Epithelial Cells - UA 0-5 SEEN /hpf (5-10); White Blood Cells 0-5 SEEN /hpf (0-5)
[2021-03-09 07:49] LABS: Anion Gap 7 (5-15); BUN 15 mg/dL (7-18); BUN/Creat Ratio 19.7 RATIO (10-20); Calcium,Total 9.1 mg/dL (8.5-10.1); Chloride 108 mmol/L (98-107); Creatinine, Serum 0.76 mg/dL (0.55-1.02); EST Glomerular Filtration Rate 88 mL/min (>60); Est Glom Filt Rate - Afr Amer 106 mL/min (>60); Estimated Creatinine Clearance 96.28 ml/min; Glucose 105 mg/dL (74-106); Potassium 3.6 mmol/L (3.5-5.1); Sodium Level 139 mmol/L (136-145)
[2021-03-09] MEDS: Morphine 4 MG/ML Syringe IV (08:20)
[2021-03-09 09:09] VITALS: PULSE 79; RESP 16; O2SAT 100
--- NOTE | 2021-03-09 09:09 | ED.RN ---
THIS NURSE REVIEWED D/C INSTRUCTIONS WITH PT AND VISITOR. PT VERBALIZED UNDERSTANDING OF INSTRUCTIONS. IV D/C. IV CATHETER INTACT. PT TOLERATED WELL. PT DENIES FURTHER NEEDS OR QUESTIONS AT THIS TIME. PT AMBULATES FROM ROOM ON OWN WITHOUT ASSISTANCE FROM STAFF
== END 2021-03-09 09:10 | disposition home or self-care (01) ==
PROVIDERS: Emergency Provider Emergency Medicine; PCP Family Medicine
DX: N13.2 Hydronephrosis with renal and ureteral calculous obstruction (principal); M79.7 Fibromyalgia; F17.210 Nicotine dependence, cigarettes, uncomplicated; E66.9 Obesity, unspecified; Z68.33 Body mass index [BMI] 33.0-33.9, adult; Z79.899 Other long term (current) drug therapy; Z87.442 Personal history of urinary calculi; Z87.440 Personal history of urinary (tract) infections
CPT/HCPCS: 74176; 80048; 81001; 85025; 96361; 96374; 96375; 99283; J7030; A4216; J2405

== ENCOUNTER 2021-04-21 07:00 | Emergency (ER) | payer BC, SELFPAY ==
[2021-04-21 07:01] VITALS: BP 123/92; PULSE 124; RESP 18; TEMP 36.2; O2SAT 96; BMI 31.0
[2021-04-21] MEDS: Ondansetron 4 MG/2 ML Vial IV (07:21)
--- NOTE | 2021-04-21 07:25 | EKG12_ITS ---
Test Reason : MIGRAINE Blood Pressure : / mmHG Vent. Rate : 095 BPM Atrial Rate : 095 BPM P-R Int : 148 ms QRS Dur : 080 ms QT Int : 368 ms P-R-T Axes : 050 023 013 degrees QTc Int : 462 ms Normal sinus rhythm Nonspecific T wave abnormality Confirmed by NILESH SHELTON, ETHAN ([id number]), material expeditor AJAY DE LA O ([id number]) on 04/23/2021 11:23:46 AM Referred By: EVARISTO Confirmed By:ETHAN GALLOWAY MD
[2021-04-21 07:46] LABS: Absolute Lymphocyte Count 1.29 X10^3/uL (0.83-4.51); Absolute Neutrophil Count 7.1 X10^3/uL (2.0-7.7); Basophil# 0.02 X10^3/uL; Basophil% 0.2 % (0-1); Hematocrit 46.7 % (37-47); Hemoglobin 15.4 g/dL (12.0-15.0); Lymphocyte # 1.29 X10^3/ul (0.83-4.51); Lymphocyte % 14.9 % (19-41); Mean Corpuscular Hgb 30.7 pg (27.0-32.0); Mean Platelet Vol. 10.5 fl (6.2-12.0); Monocyte# 0.23 X10^3/uL; Monocyte% 2.7 % (0-10); NRBC Flagged by Analyzer 0 % (0-5); Neutrophil # 7.09 X10^3/uL (2.7-7.7); Neutrophil % 81.7 % (47-70); Platelet Count 296 K/mm3 (150-450); RBC Distribution Width CV 13.2 % (11.6-14.6); Red Blood Count 5.02 M/mm3 (4.2-5.4); White Blood Count 8.7 K/mm3 (4.4-11.0)
[2021-04-21 07:51] LABS: Internal QC Validated? YES +Cl - CLEAR BKGD
[2021-04-21 07:52] LABS: Pregnancy, Serum, hCG Quali. POSITIVE Negative
[2021-04-21 07:55] LABS: Anion Gap 11 (5-15); BUN 16 mg/dL (7-18); BUN/Creat Ratio 20.5 RATIO (10-20); Calcium,Total 9.8 mg/dL (8.5-10.1); Chloride 105 mmol/L (98-107); Creatinine, Serum 0.78 mg/dL (0.55-1.02); EST Glomerular Filtration Rate 85 mL/min (>60); Est Glom Filt Rate - Afr Amer 103 mL/min (>60); Estimated Creatinine Clearance 97.19 ml/min; Glucose 135 mg/dL (74-106); Potassium 3.4 mmol/L (3.5-5.1); Sodium Level 139 mmol/L (136-145)
[2021-04-21] MEDS: SUMAtriptan 6 MG/0.5 ML Vial SC (08:57)
[2021-04-21] MEDS: Ketorolac 30 MG/ML Syringe IV (08:57)
--- NOTE | 2021-04-21 09:06 | EX.ED.VIS.HA ---
HPI History of Present Illness Chief Complaint: Nausea/Vomiting Informant: patient Onset/Context/Timing Onset: Yesterday Context: Gradual Timing: Continuous Quality -Headache: Positive for Similar Prior Headaches, Sharp and Throbbing Location: Generalized Worsened by: Lites Relieved by: Nothing Associated Symptoms/Injury Associated Symptoms: Positive for Nausea, Vomiting and Photophobia; Negative for Fever, Sore Throat, Sinus Pressure, Numbness, Tingling, Preceding Aura, Visual Changes, Blurred Vision and Visual Loss Narrative Narrative: Patient presents with headache, nausea, and vomiting that began yesterday. Patient states this feels similar to prior migraine headaches. Patient states it is generalized. Patient describes it as sharp and throbbing. Patient states nothing makes it better. Patient states it is worse with bright lights. Patient states she normally gets an injection of Toradol and Imitrex and this improves her headache. Patient states her pain is over the occipital area and into her neck. Patient denies any back pain. Patient admits to some nausea and vomiting with the pain. [facility] Medical History Bipolar 1 disorder Fibromyalgia History of venous thromboembolism Kidney stones Migraines Psoriasis Psoriasis Home Medications baclofen 10 mg PO TID 04/27/19 [History Last Taken 04/27/19] gabapentin 400 mg PO TID 04/27/19 [History Last Taken 04/27/19] ondansetron 8 mg PO Q8H PRN PRN #20 tab 04/26/20 [Rx Last Taken Unknown] sulfamethoxazole-trimethoprim 1 tab PO BID #14 tab 04/26/20 [Rx Last Taken Unknown] sumatriptan succinate 100 mg PO .X1 PRN 04/26/20 [History Last Taken Unknown] famotidine [Pepcid] 20 mg PO BID #20 tab 10/04/20 [Rx Last Taken Unknown] sulfamethoxazole-trimethoprim [Bactrim DS] 1 tab PO Q12H #14 tab 10/04/20 [Rx Last Taken Unknown] hydrocodone-acetaminophen 1 tab PO Q8H PRN 3 Days #9 tab 11/11/20 [Rx Last Taken Unknown] prednisone 50 mg PO DAILY #4 tab 11/11/20 [Rx Last Taken Unknown] hydrocodone-acetaminophen 1 tab PO Q6H PRN PRN 3 Days #12 tablet 03/09/21 [Rx Last Taken Unknown] ketorolac 10 mg PO Q8H PRN 3 Days #9 tab 03/09/21 [Rx Last Taken Unknown] ondansetron 4 mg PO Q8H PRN PRN #12 tab 03/09/21 [Rx Last Taken Unknown] Allergy/AdvReac Type Severity Reaction Status Date / Time adhesive tape Allergy Swelling Verified 04/21/21 07:03 Penicillins Allergy Anaphylaxis Verified 04/21/21 07:03 bupropion [From Wellbutrin] AdvReac Other Verified 04/21/21 07:03 diphenhydramine HCl AdvReac IV route Verified 04/21/21 07:03 [From Benadryl] causes panic attack. can take po Surgical History H/O: hysterectomy Social History Smoking Status: Current every day smoker tobacco type: cigarettes substance use type: does not use ROS ROS ED Constitutional Constitutional ED: Denies chills or fever(s) Eyes Eyes: Denies blurry vision or change in vision ENT ENT ED: Denies rhinorrhea or sore throat Cardiovascular Cardiovascular: Denies chest pain or palpitations Respiratory/Chest Respiratory/Chest: Denies cough or dyspnea Gastrointestinal Gastrointestinal: Reports nausea and vomiting Genitourinary Genitourinary ED: Denies dysuria or hematuria Musculoskeletal Musculoskeletal: Reports neck pain; Denies back pain Integumentary Denies abscess or rash Neurologic Neurologic: Reports headache(s); Denies weakness Allergic/Immunologic Allergic/Immunologic ED: Denies mouth swelling or urticaria EXAM Physical Exam Const Vital Signs: 04/21/21 07:01 Temperature 97.2 F L Temperature Source Temporal Pulse Rate 124 H Respiratory Rate 18 Blood Pressure 123/92 H Blood Pressure Mean 102 Pulse Ox 96 Oxygen Delivery Method Room Air Positive well nourished and well developed General Appearance ED: well developed HEENT Reports normocephalic and moist mucous membranes atraumatic Neck supple, no meningeal signs and no JVD Neuro oriented x3, CN's II-XII intact bilaterally and no sensory deficits noted Sensorium / Orientation: awake and alert Speech: speech normal Motor Exam: strength 5/5 throughout Psych mental status grossly normal MDM MDM MDM Narrative Medical decision making narrative: Patient was given injection of Toradol and Imitrex here. Nursing protocol orders were placed by nursing staff. EKG was obtained. On my interpretation, it showed a normal sinus rhythm with a rate of 95. OK interval, QRS interval, and QTc intervals were all normal. [place] was normal. There are no acute ST or T wave changes. CBC and basic metabolic profile was obtained and was within normal limits. Serum hCG was positive however, patient has had a hysterectomy. I went back to reevaluate the patient and she was not in the room. The gown was laying on the bed. There is no IV with her gown. We were unable to find the IV catheter. Patient left without completing treatment. Lab Data Labs: Laboratory Results - last 24 hr 04/21/21 04/21/21 04/21/21 07:22 07:22 07:22 WBC 8.7 RBC 5.02 Hgb 15.4 H Hct 46.7 MCV 93.0 MCH 30.7 MCHC 33.0 RDW Std Deviation 45.0 H RDW Coeff of Flavia 13.2 Plt Count 296 MPV 10.5 Immature Gran % (Auto) 0.500 Neut % (Auto) 81.7 H Lymph % (Auto) 14.9 L [place] % (Auto) 2.7 Eos % (Auto) 0.0 Baso % (Auto) 0.2 Absolute Neuts (auto) 7.1 Absolute Lymphs (auto) 1.29 Nucleated RBC % 0 Sodium 139 Potassium 3.4 L Chloride 105 Carbon Dioxide 23.0 Anion Gap 11 BUN 16 Creatinine 0.78 Estim Creat Clear Calc 97.19 Est GFR (MDRD) Af Amer 103 Est GFR (MDRD) Non-Af 85 BUN/Creatinine Ratio 20.5 H Glucose 135 H Calcium 9.8 Serum , Qual POSITIVE H EKG Initial EKG: Attestation: I personally reviewed and interpreted this EKG as follows: Interpretation: Sinus Rhythm (95) and No Acute Injury Pattern Discharge Plan Triage Chief Complaint: Nausea/Vomiting ED Provider: Garett De Oliveira Dx/Rx/DC Orders Clinical Impression: Headache, migraine Instructions: ED, Migraine (Classical) Prescriptions: No Action gabapentin 400 MG capsule 400 mg PO TID RF: 0 baclofen 10 MG tablet 10 mg PO TID RF: 0 sumatriptan succinate 100 MG tablet 100 mg PO .X1 PRN RF: 0 sulfamethoxazole-trimethoprim 1 TABLET tablet 1 tab PO BID Qty: 14 RF: 0 ondansetron 4 MG tablet 8 mg PO Q8H PRN PRN (Reason: Nausea) Qty: 20 RF: 0 sulfamethoxazole-trimethoprim [Bactrim DS] 800-160 mg tablet 1 tab PO Q12H Qty: 14 RF: 0 famotidine [Pepcid] 20 mg tablet 20 mg PO BID Qty: 20 RF: 0 prednisone 50 mg tablet 50 mg PO DAILY Qty: 4 RF: 0 hydrocodone-acetaminophen 5-325 mg tablet 1 tab PO Q8H PRN (Reason: pain) 3 Days Qty: 9 RF: 0 hydrocodone-acetaminophen [hydrocodone-acetaminophen] 1 TABLET tablet 1 tab PO Q6H PRN PRN (Reason: Pain) 3 Days Qty: 12 RF: 0 ondansetron [ondansetron] 4 MG tablet 4 mg PO Q8H PRN PRN (Reason: Nausea) Qty: 12 RF: 0 ketorolac 10 mg tablet 10 mg PO Q8H PRN (Reason: pain) 3 Days Qty: 9 RF: 0 Primary Care Provider: Dionicio Armijo Referrals: Dionicio Armijo MD [Primary Care Provider] - 3-5 Days Disposition Disposition: Elopement
--- NOTE | 2021-04-21 09:32 | ED.RN ---
pt left prior to discharge. pt was contacted about iv being taken out. pt stated that she took it out and threw it in the trash. 2 nurses looked and iv heplock was not in either trash in the room. pt was called again and still stated that she threw it in the trash.
== END 2021-04-21 09:34 | disposition left against medical advice (07) ==
PROVIDERS: Emergency Provider Emergency Medicine; PCP Family Medicine
DX: G43.909 Migraine, unspecified, not intractable, without status migrainosus (principal); M79.7 Fibromyalgia; F17.210 Nicotine dependence, cigarettes, uncomplicated; Z79.899 Other long term (current) drug therapy
CPT/HCPCS: 80048; 84703; 85025; 93005; 96372; 96374; 96375; 99283; A4216; J2405; J3030

== ENCOUNTER 2022-07-23 13:16 | Emergency (ER) | payer SELFPAY ==
[2022-07-23 13:16] VITALS: BP 119/98; BP 95/72; PULSE 114; PULSE 154; RESP 16; RESP 22; TEMP 36.1; O2SAT 100
--- NOTE | 2022-07-23 13:35 | RAD_ITS ---
STUDY: X-RAY - PELVIS REASON FOR EXAM: Female, 46 years old. Pain after fall TECHNIQUE: One view of the pelvis was obtained. COMPARISON: None. FINDINGS: There is a non-specific bowel gas pattern. Normal visualized soft tissue structures. Normal bilateral iliac wings, sacroiliac joints and visualized sacrum. Normal visualized bilateral superior and inferior pubic rami. Normal pubic symphysis. Normal ischial tuberosities. Normal visualized right femoral head. Normal right acetabulum. Normal right hip joint. Normal visualized left femoral head. Normal left acetabulum. Normal left hip joint. RAD/Pelvis 1 or 2 Views IMPRESSION: Normal x-ray examination of the pelvis. Electronically Signed: Matt Ferguson MD at 14:14 EDT ,
--- NOTE | 2022-07-23 13:35 | RAD_ITS ---
STUDY: X-RAY - SACRUM/COCCYX REASON FOR EXAM: Female, 46 years old. fall/injury TECHNIQUE: 3 view(s) of the sacrum and coccyx were obtained. COMPARISON: None. FINDINGS: Normal bilateral sacroiliac joints. Normal visualized sacral ala and fused sacral bodies. Normal sacrococcygeal junction with a normal angulation. There is evidence of an old injury in the distal coccyx. The cortical margins are well preserved and healed no acute fracture identified. The presacral soft tissue structures are unremarkable. RAD/Sacrum-Coccyx min 2 Views IMPRESSION: Evidence of old healed coccyx injury. No acute findings Electronically Signed: Matt Ferguson MD at 14:15 EDT ,
[2022-07-23] MEDS: HYDROcodone Bitartrate/Apap 5/325 Tablet PO (13:46)
--- NOTE | 2022-07-23 13:50 | RAD_ITS ---
STUDY: X-RAY - RIGHT KNEE REASON FOR EXAM: Female, 46 years old. Fall/injury TECHNIQUE: 4 view(s) of the knee. COMPARISON: None. FINDINGS: Normal visualized distal femur. Normal visualized proximal tibia and fibula. Normal proximal tibiofibular articulation. Normal medial femorotibial compartment. Normal lateral femorotibial compartment. Normal patellofemoral articulation. Soft tissue swelling anterior to the patella RAD/Knee 4 or More Views IMPRESSION: Normal x-ray examination of the knee. Anterior soft tissue swelling Electronically Signed: Matt Ferguson MD at 14:14 EDT ,
[2022-07-23 14:30] VITALS: BMI 32.4
--- NOTE | 2022-07-23 15:17 | ED.VIS.FALL ---
HPI HPI - Fall History of Present Illness Chief Complaint: Fall Informant: patient Associated Symptoms Associated Symptoms: Negative for Parasthesias, Weakness, Inability to ambulate or Loss of consciousness Narrative Narrative: Patient states she was coming down outside porch steps from her home. As she put her right foot down on the first step, her jacket caught something and pulled her on the left side, into a twisting motion, she twisted her right knee and felt a pop, and fell landing against her low back versus one of the sepsis. She is complaining of significant amount of low back pain, and her right knee hurts. Able to walk afterwards. No head injury or loss of consciousness. Subsequently patient does states she has chronic problems with the right knee and is already referred to orthopedics for this. She states it gives out on her not infrequently like it did today. [facility] Medical History Bipolar 1 disorder Fibromyalgia History of venous thromboembolism Hypokalemia Kidney stones Migraines Psoriasis Psoriasis Home Medications baclofen 10 mg tablet 10 mg PO TID BACK PAIN 04/27/19 [History Last Taken 04/27/19] gabapentin 400 mg capsule 400 mg PO TID NERVE PAIN 04/27/19 [History Last Taken 04/27/19] ondansetron 4 mg disintegrating tablet 8 mg PO Q8H PRN PRN Nausea #20 tabs 04/26/20 [Rx Last Taken Unknown] sulfamethoxazole 800 mg-trimethoprim 160 mg tablet 1 tab PO BID #14 tabs 04/26/20 [Rx Last Taken Unknown] sumatriptan succinate 100 mg tablet 100 mg PO .X1 PRN 04/26/20 [History Last Taken Unknown] famotidine 20 mg tablet (Pepcid) 20 mg PO BID #20 tabs 10/04/20 [Rx Last Taken Unknown] sulfamethoxazole 800 mg-trimethoprim 160 mg tablet (Bactrim DS) 1 tab PO Q12H #14 tabs 10/04/20 [Rx Last Taken Unknown] hydrocodone-acetaminophen 5-325mg 5mg-325mg 1 tab PO Q8H PRN pain 3 days #9 tabs 11/11/20 [Rx Last Taken Unknown] prednisone 50 mg tablet 50 mg PO DAILY #4 tabs 11/11/20 [Rx Last Taken Unknown] hydrocodone-acetaminophen 5-325mg 5mg-325mg 1 tab PO Q6H PRN PRN Pain 3 days #12 TABLETS 03/09/21 [Rx Last Taken Unknown] ketorolac 10 mg tablet 10 mg PO Q8H PRN pain 3 days #9 tabs 03/09/21 [Rx Last Taken Unknown] ondansetron 4 mg disintegrating tablet 4 mg PO Q8H PRN PRN Nausea #12 tabs 03/09/21 [Rx Last Taken Unknown] hydrocodone-acetaminophen 5-325mg 5mg-325mg 1 tab PO Q4H PRN PRN Pain 2 days #10 TABLETS 07/23/22 [Rx Last Taken Unknown] Allergy/AdvReac Type Severity Reaction Status Date / Time adhesive tape Allergy Swelling Verified 07/23/22 13:19 Penicillins Allergy Anaphylaxis Verified 07/23/22 13:19 bupropion [From Wellbutrin] AdvReac Other Verified 07/23/22 13:19 diphenhydramine HCl AdvReac IV route Verified 07/23/22 13:19 [From Benadryl] causes panic attack. can take po Surgical History H/O: hysterectomy Social History Smoking Status: Current every day smoker tobacco type: cigarettes substance use type: does not use ROS ROS ED Constitutional Constitutional ED: Denies chills or fever(s) Cardiovascular Cardiovascular: Denies chest pain, palpitations or racing heartbeat Respiratory/Chest Respiratory/Chest: Denies dyspnea or dyspnea on exertion Gastrointestinal Gastrointestinal: Denies abdominal pain, diarrhea, nausea or vomiting Genitourinary Genitourinary ED: Denies dysuria or hematuria Musculoskeletal Musculoskeletal: Reports back pain and extremity pain; Denies neck pain Integumentary Denies Abrasions, rash or wounds Neurologic Neurologic: Denies paresthesias or weakness EXAM Physical Exam Const Vital Signs: 07/23/22 13:16 07/23/22 13:16 07/23/22 13:16 Temperature 96.9 F L Temperature Source Temporal Pulse Rate 154 H 114 H Respiratory Rate 22 H 16 Respiratory Effort Normal Non-Labored Blood Pressure 119/98 H 95/72 Blood Pressure Mean 105 79 Pulse Ox 100 100 Oxygen Delivery Method Room Air Room Air Room Air Positive well nourished, well developed and obese General Appearance ED: well developed and NAD Nutritional Appearance: obese HEENT Reports normocephalic and head/scalp atraumatic atraumatic Face and Sinus: Negative for facial tenderness Neck full ROM and supple GI non-tender and non-distended Back/Spine Back/Spine Narrative: Lower range of motion due to pain with regards to low back, normal inspection except for some interstitial soft tissue mottling without cyanosis, patient states she was laying with a heating pad on this area. No rash or breakdown of skin. Mild distal midline tenderness worse near the coccyx no crepitance. Also tender along the right pelvic brim, nontender anterior/ASIS and right greater trochanter. No other spinal tenderness. General Back: Negative for CVA tenderness Extremity Extremity Narrative: Tender anterior medial right knee, no effusion. Full range of motion including extension but when I am stressing the MCL, she breaks full extension because of discomfort. There is no laxity. Negative anterior posterior drawer signs. Otherwise, atraumatic extremity exam. Neuro oriented x3, no focal motor deficits, no sensory deficits noted and gait normal Sensorium / Orientation: alert Psych thought process normal Mood & Affect: anxious and tearful Skin no wounds Rashes: no rashes MDM MDM MDM Narrative Medical decision making narrative: Obtained x-rays to image all of the injured areas, pelvis 1 view negative on my interpretation, sacrum and coccyx 3 views negative on my interpretation, and 4 views of the right knee are negative for any acute fracture or mitral rotation. Radiology in agreement with all of this. Patient was given pain medication here, she states she is on anti-inflammatory and muscle relaxers at home, okay to add [place] to that give her a short prescription after checking an [facility] report and see no current prescriptions for narcotics. Radiography Diagnostic Testing: Clinical Impression(s) from Imaging Studies Pelvis X-Ray 07/23/22 13:35 IMPRESSION: Normal x-ray examination of the pelvis. Electronically Signed: Matt Ferguson MD at 14:14 EDT , Sacrum and Coccyx X-Ray 07/23/22 13:35 IMPRESSION: Evidence of old healed coccyx injury. No acute findings Electronically Signed: Matt Ferguson MD at 14:15 EDT , Knee X-Ray 07/23/22 13:50 IMPRESSION: Normal x-ray examination of the knee. Anterior soft tissue swelling Electronically Signed: Matt Ferguson MD at 14:14 EDT , Discharge Plan Triage Chief Complaint: Fall ED Provider: Kun Newby Dx/Rx/DC Orders Clinical Impression: Right knee sprain, Back contusion, Coccyx contusion Instructions: ED Back Contusion, ED Knee Sprain Prescriptions: New hydrocodone-acetaminophen [hydrocodone-acetaminophen] 5-325 mg tablet 1 tab PO Q4H PRN PRN (Reason: Pain) 2 Days Qty: 10 0RF No Action gabapentin 400 MG capsule 400 mg PO TID Label Comments: Take 1 capsule by mouth three times daily for 90 days. baclofen 10 MG tablet 10 mg PO TID Label Comments: Take 1 tablet by mouth three times daily. sumatriptan succinate 100 MG tablet 100 mg PO .X1 PRN sulfamethoxazole-trimethoprim 1 TABLET tablet 1 tab PO BID Qty: 14 0RF ondansetron 4 MG tablet 8 mg PO Q8H PRN PRN (Reason: Nausea) Qty: 20 0RF sulfamethoxazole-trimethoprim [Bactrim DS] 800-160 mg tablet 1 tab PO Q12H Qty: 14 0RF famotidine [Pepcid] 20 mg tablet 20 mg PO BID Qty: 20 0RF prednisone 50 mg tablet 50 mg PO DAILY Qty: 4 0RF hydrocodone-acetaminophen 5-325 mg tablet 1 tab PO Q8H PRN (Reason: pain) 3 Days Qty: 9 0RF hydrocodone-acetaminophen [hydrocodone-acetaminophen] 1 TABLET tablet 1 tab PO Q6H PRN PRN (Reason: Pain) 3 Days Qty: 12 0RF ondansetron [ondansetron] 4 MG tablet 4 mg PO Q8H PRN PRN (Reason: Nausea) Qty: 12 0RF ketorolac 10 mg tablet 10 mg PO Q8H PRN (Reason: pain) 3 Days Qty: 9 0RF Primary Care Provider: Dionicio Armijo Referrals: Dionicio Armijo MD [Primary Care Provider] - 10-14 Days if not better (and orthopaedics as scheduled and/or referred before) Disposition Disposition: Home, Self Care
== END 2022-07-23 15:50 | disposition home or self-care (01) ==
PROVIDERS: Emergency Provider Emergency Medicine; PCP Family Medicine; Visit Provider Emergency Medicine
DX: S83.91XA Sprain of unspecified site of right knee, initial encounter (principal); S30.0XXA Contusion of lower back and pelvis, initial encounter; F17.210 Nicotine dependence, cigarettes, uncomplicated; E66.9 Obesity, unspecified; W19.XXXA Unspecified fall, initial encounter
CPT/HCPCS: 72170; 72220; 73564; 99283

== ENCOUNTER 2023-02-01 10:39 | Emergency (ER) | payer SELFPAY ==
[2023-02-01 10:40] VITALS: BP 144/124; PULSE 100; RESP 14; TEMP 36.4; O2SAT 98; BMI 31.0
--- NOTE | 2023-02-01 11:12 | RAD_ITS ---
STUDY: X-RAY CHEST REASON FOR EXAM: Female, 47 years old. Shortness of breath -- -- PAIN JUST UNDER SHOULDER ON RT SIDE, -- DRY HEAVING -- BEST IMAGES POSSIBLE TECHNIQUE: PA and lateral views of the chest. COMPARISON: Comparison is made with prior study dated July 19, 2017. FINDINGS: Increased bilateral interstitial markings with areas of confluence worse in the lingular segment of the left upper lobe. This may represent bilateral pulmonary infiltrates. There is no demonstrated pleural abnormality. Normal size heart. Normal mediastinum and cindy. Normal visualized pulmonary arteries. Normal visualized aortic arch and descending thoracic aorta. Normal visualized thoracic spine. Normal visualized ribs, clavicles, and shoulders. There is no demonstrated abnormality of the visualized soft tissue structures of the upper abdomen. RAD/Chest PA and Lateral IMPRESSION: Bilateral pulmonary infiltrates worse in the lingular segment of the left upper lobe. Electronically Signed: Julio C Prasad MD at 12:46 EDT ,
--- NOTE | 2023-02-01 11:15 | EX.ED.DYSGE1 ---
HPI <ROMY Shanks - Last Filed: 02/01/23 18:47> History of Present Illness Chief Complaint: Asthma Narrative Narrative: Patient presenting due to shortness of breath that started this afternoon. She reports that she was at work when she got a sudden sharp pain in between her shoulder blades that radiates to her shoulders. She reports having chest tightness and chest pressure. The pain caused her to begin panicking which then caused her to feel short of breath. She reports that she has used her inhaler 6 times this afternoon. She feels like she cannot catch a deep breath. She denies any fever, chills, cough. She reports that she was recently sick with a respiratory infection that has seemed to go away. She does have a history of DVT and PE and was told if she has another blood clot she will need to be on anticoagulants for life. Denies any recent surgeries/procedures/travel. PFS <ROMY Shanks - Last Filed: 02/01/23 18:47> [facility] Medical History Bipolar 1 disorder Fibromyalgia History of venous thromboembolism Hypokalemia Kidney stones Migraines Psoriasis Psoriasis Home Medications baclofen 10 mg tablet 10 mg PO TID BACK PAIN 04/27/19 [History Last Taken 02/01/23] sumatriptan succinate 100 mg tablet 100 mg PO .X1 PRN 04/26/20 [History Last Taken 01/31/23] acetaminophen 325 mg tablet (Aphen) 650 mg PO Q4H PRN pain 02/01/23 [History Last Taken 02/01/23] doxycycline hyclate 100 mg tablet 100 mg PO BID #10 tabs 02/01/23 [Rx Last Taken Unknown] gabapentin 600 mg tablet 600 mg PO Q8H 02/01/23 [History Last Taken 02/01/23] potassium chloride 10 mEq capsule,extended release 20 meq (2 x 10 mEq) PO DAILY 5 days #10 caps 02/01/23 [Rx Last Taken Unknown] Allergy/AdvReac Type Severity Reaction Status Date / Time adhesive tape Allergy Swelling Verified 02/01/23 10:40 Penicillins Allergy Anaphylaxis Verified 02/01/23 10:40 bupropion [From Wellbutrin] AdvReac Other Verified 02/01/23 10:40 diphenhydramine HCl AdvReac IV route Verified 02/01/23 10:40 [From Benadryl] causes panic attack. can take po Surgical History H/O: hysterectomy Social History Smoking Status: Current every day smoker tobacco type: cigarettes substance use type: does not use ROS <ROMY Shanks - Last Filed: 02/01/23 18:47> ROS ED Constitutional Constitutional ED: Denies chills or fever(s) Cardiovascular Cardiovascular: Denies chest pain, palpitations or racing heartbeat Respiratory/Chest Respiratory/Chest: Reports dyspnea; Denies cough or wheezing Gastrointestinal Gastrointestinal: Denies abdominal pain, nausea or vomiting Musculoskeletal Musculoskeletal: Denies arthralgias or myalgias Integumentary Denies rash Neurologic Neurologic: Denies weakness EXAM <ROMY Shanks - Last Filed: 02/01/23 18:47> Physical Exam Const Vital Signs: 02/01/23 10:40 02/01/23 11:29 02/01/23 11:29 Temperature 97.6 F L Temperature Source Temporal Pulse Rate 100 112 H Respiratory Rate 14 24 H Respiratory Depth Respiratory Pattern Tachypnea Blood Pressure 144/124 H Blood Pressure Mean 130 Pulse Ox 98 91 Oxygen Delivery Method Room Air Room Air 02/01/23 12:44 02/01/23 13:19 Temperature Temperature Source Pulse Rate Respiratory Rate Respiratory Depth Deep Respiratory Pattern Normal Blood Pressure Blood Pressure Mean Pulse Ox 97 Oxygen Delivery Method Room Air Room Air Positive well nourished, well developed and no apparent distress General Appearance ED: well developed HEENT Reports normocephalic and head/scalp atraumatic Mouth ED: Yes moist mucous membranes normal Eyes PERRL and EOMs intact bilaterally Neck full ROM and supple Chest Wall inspection of chest normal Resp normal respiratory effort and clear to auscultation bilaterally Cardio regular rate and regular rhythm GI soft to palpation, non-tender, non-distended and no masses Back/Spine normal ROM and normal to inspection Extremity normal to inspection and full ROM Neuro oriented x3, CN's II-XII intact bilaterally, moves all extremities, no focal motor deficits and no sensory deficits noted Sensorium / Orientation: awake and alert Psych mental status grossly normal and thought process normal Skin no rashes or lesions noted and no wounds <Carlos Willams MD - Last Filed: 02/02/23 07:11> Physical Exam Const Vital Signs: 02/01/23 10:40 02/01/23 11:29 02/01/23 11:29 Temperature 97.6 F L Temperature Source Temporal Pulse Rate 100 112 H Respiratory Rate 14 24 H Respiratory Depth Respiratory Pattern Tachypnea Blood Pressure 144/124 H Blood Pressure Mean 130 Pulse Ox 98 91 Oxygen Delivery Method Room Air Room Air 02/01/23 12:44 02/01/23 13:19 Temperature Temperature Source Pulse Rate Respiratory Rate Respiratory Depth Deep Respiratory Pattern Normal Blood Pressure Blood Pressure Mean Pulse Ox 97 Oxygen Delivery Method Room Air Room Air MDM <ROMY Shanks - Last Filed: 02/01/23 18:47> MDM MDM Narrative Medical decision making narrative: Patient presenting due to shortness of breath, pressure across her chest as well as midsternal chest tightness, and pain between her shoulder blades in her back. She reports that she feels like she is having a panic attack because she is scared about not being able to take a full deep breath. Initially she is hyperventilating, I did attempt to calm her down as she has an oxygen saturation of 98% on room air and is not hypoxic. Given her history of blood clots, D-dimer will be obtained. Labs will be obtained to rule out leukocytosis, anemia, electrolyte abnormality, and ACS. Patient's D-dimer is elevated, CT PE obtained to rule out PE. Patient does not have a PE but does have bilateral groundglass infiltrates. However, she is not hypoxic. She have significant hypokalemia at 2.4. She has been given p.o. potassium and 40 IV. I did speak with the hospitalist who does not feel that she qualifies for admission at this time. She feels that as long as the potassium can be raised here in the ED, she can be discharged home. She recommends giving 80 p.o. total and 40 IV. I will recheck the potassium level an hour after infusion. She will be started on doxycycline for her pneumonia. She has been given a nicotine patch due to multiple requests to go outside to smoke. She was given Toradol for her pain. After receiving only about 10 mEq of IV and 80 p.o. patient requested to go home. She wants to sign out AMA, she reports that the potassium infusion is too uncomfortable and does not want to be here anymore. I have gone over all risks associated with signing out AMA including , disability, etc. She is competent and able to make this decision. She will be given a prescription for doxycycline and p.o. potassium. She has a PCP appointment on and has been given strict return instructions. She will be discharged home in stable condition. Lab Data Attestation: I reviewed the patient's lab results. Labs: Laboratory Results - last 24 hr 02/01/23 02/01/23 11:50 15:15 WBC 15.7 H RBC 4.43 Hgb 13.7 Hct 41.8 MCV 94.4 MCH 30.9 MCHC 32.8 RDW Std Deviation 46.2 H RDW Coeff of Flavia 13.2 Plt Count 256 MPV 10.2 Immature Gran % (Auto) 0.400 Neut % (Auto) 77.5 H Lymph % (Auto) 19.0 Garrett % (Auto) 2.7 Eos % (Auto) 0.3 Baso % (Auto) 0.1 Absolute Neuts (auto) 12.2 H Absolute Lymphs (auto) 2.98 Nucleated RBC % 0 D-Dimer Quant (PE/DVT) 0.85 H* Sodium 142 Potassium 2.4 L* Chloride 110 H Carbon Dioxide 21.0 Anion Gap 11 BUN 13 Creatinine 0.91 Estim Creat Clear Calc 81.59 Est GFR (MDRD) Af Amer 86 Est GFR (MDRD) Non-Af 71 BUN/Creatinine Ratio 14.2 Glucose 89 Calcium 9.1 Magnesium 1.8 Troponin I High Sens 4 6 Radiography Chest X-Ray - ED: Read by ED Physician and Read by Radiologist Diagnostic Testing: Clinical Impression(s) from Imaging Studies Chest X-Ray 02/01/23 11:12 IMPRESSION: Bilateral pulmonary infiltrates worse in the lingular segment of the left upper lobe. Electronically Signed: Julio C Prasad MD at 12:46 EDT , Chest CTA 02/01/23 12:22 IMPRESSION: No evidence of pulmonary embolism. Bilateral areas of the groundglass appearance worse in the lower lobes. An infectious process should be ruled out. Electronically Signed: Julio C Prasad MD at 13:26 EDT , EKG Initial EKG: Comments: 111, sinus tachycardia, possible left atrial enlargement, no ST elevation, reviewed and interpreted by attending ED physician <Carlos Willams MD - Last Filed: 02/02/23 07:11> [facility] MDM Narrative Medical decision making narrative: Patient presenting due to shortness of breath, pressure across her chest as well as midsternal chest tightness, and pain between her shoulder blades in her back. She reports that she feels like she is having a panic attack because she is scared about not being able to take a full deep breath. Initially she is hyperventilating, I did attempt to calm her down as she has an oxygen saturation of 98% on room air and is not hypoxic. Given her history of blood clots, D-dimer will be obtained. Labs will be obtained to rule out leukocytosis, anemia, electrolyte abnormality, and ACS. Patient's D-dimer is elevated, CT PE obtained to rule out PE. Patient does not have a PE but does have bilateral groundglass infiltrates. However, she is not hypoxic. She have significant hypokalemia at 2.4. She has been given p.o. potassium and 40 IV. I did speak with the hospitalist who does not feel that she qualifies for admission at this time. She feels that as long as the potassium can be raised here in the ED, she can be discharged home. She recommends giving 80 p.o. total and 40 IV. I will recheck the potassium level an hour after infusion. She will be started on doxycycline for her pneumonia. She has been given a nicotine patch due to multiple requests to go outside to smoke. She was given Toradol for her pain. After receiving only about 10 mEq of IV and 80 p.o. patient requested to go home. She wants to sign out AMA, she reports that the potassium infusion is too uncomfortable and does not want to be here anymore. I have gone over all risks associated with signing out AMA including , disability, etc. She is competent and able to make this decision. She will be given a prescription for doxycycline and p.o. potassium. She has a PCP appointment on and has been given strict return instructions. She will be discharged/signed out home in stable condition. Lab Data Labs: Laboratory Results - last 24 hr 02/01/23 02/01/23 11:50 15:15 WBC 15.7 H RBC 4.43 Hgb 13.7 Hct 41.8 MCV 94.4 MCH 30.9 MCHC 32.8 RDW Std Deviation 46.2 H RDW Coeff of Flavia 13.2 Plt Count 256 MPV 10.2 Immature Gran % (Auto) 0.400 Neut % (Auto) 77.5 H Lymph % (Auto) 19.0 Garrett % (Auto) 2.7 Eos % (Auto) 0.3 Baso % (Auto) 0.1 Absolute Neuts (auto) 12.2 H Absolute Lymphs (auto) 2.98 Nucleated RBC % 0 D-Dimer Quant (PE/DVT) 0.85 H* Sodium 142 Potassium 2.4 L* Chloride 110 H Carbon Dioxide 21.0 Anion Gap 11 BUN 13 Creatinine 0.91 Estim Creat Clear Calc 81.59 Est GFR (MDRD) Af Amer 86 Est GFR (MDRD) Non-Af 71 BUN/Creatinine Ratio 14.2 Glucose 89 Calcium 9.1 Magnesium 1.8 Troponin I High Sens 4 6 Radiography Diagnostic Testing: Clinical Impression(s) from Imaging Studies Chest X-Ray 02/01/23 11:12 IMPRESSION: Bilateral pulmonary infiltrates worse in the lingular segment of the left upper lobe. Electronically Signed: Julio C Prasad MD at 12:46 EDT , Chest CTA 02/01/23 12:22 IMPRESSION: No evidence of pulmonary embolism. Bilateral areas of the groundglass appearance worse in the lower lobes. An infectious process should be ruled out. Electronically Signed: Julio C Prasad MD at 13:26 EDT , Discharge Plan Triage Chief Complaint: Asthma ED Midlevel Provider: Jojo Whitehead ED Provider: Carlos Willams Dx/Rx/DC Orders Clinical Impression: Shortness of breath, Tobacco abuse, Chest pain, Pneumonia, Acute hypokalemia Instructions: Hypokalemia Dc, ED Pneumonia (Adult) Prescriptions: New doxycycline hyclate 100 mg tablet 100 mg PO BID Qty: 10 0RF potassium chloride 10 mEq capsule, extended release 20 meq PO DAILY 5 Days Qty: 10 0RF No Action baclofen 10 MG tablet 10 mg PO TID Patient Comments: Take 1 tablet by mouth three times daily. sumatriptan succinate 100 MG tablet 100 mg PO .X1 PRN gabapentin 600 mg tablet 600 mg PO Q8H acetaminophen [Aphen] 325 mg tablet 650 mg PO Q4H PRN (Reason: pain) Primary Care Provider: Dionicio Armijo Referrals: Dionicio Armijo MD [Primary Care Provider] - 3-5 Days Activity Restrictions/Additional Instructions: Please follow-up with your PCP and return for any worsening of your symptoms. Take antibiotics and potassium as prescribed. Disposition Disposition: Against Medical Advice Discharge Date/Time: 02/01/23 17:28
[2023-02-01] MEDS: Albuterol 2.5 MG/3 ML VIAL.NEB. INHALATION (11:27)
[2023-02-01] MEDS: Ipratropium/Albuterol Sulfate 3 ML AMPUL.NEB INHALATION (11:27)
[2023-02-01 11:29] VITALS: PULSE 112; RESP 24; O2SAT 91
[2023-02-01 12:05] LABS: Absolute Lymphocyte Count 2.98 X10^3/uL (0.83-4.51); Absolute Neutrophil Count 12.2 X10^3/uL (2.0-7.7); Basophil# 0.02 X10^3/uL; Basophil% 0.1 % (0-1); Eosinophil# 0.05 X10^3/uL; Eosinophils% 0.3 % (0-5); Hematocrit 41.8 % (37-47); Hemoglobin 13.7 g/dL (12.0-15.0); Lymphocyte # 2.98 X10^3/ul (0.83-4.51); Mean Corp Hgb Conc 32.8 g/dL (32-36); Mean Corpuscular Hgb 30.9 pg (27.0-32.0); Mean Corpuscular Volume 94.4 fL (81-99); Mean Platelet Vol. 10.2 fl (6.2-12.0); Monocyte# 0.43 X10^3/uL; Monocyte% 2.7 % (0-10); NRBC Flagged by Analyzer 0 % (0-5); Neutrophil # 12.17 X10^3/uL (2.7-7.7); Neutrophil % 77.5 % (47-70); Platelet Count 256 K/mm3 (150-450); RBC Distribution Width CV 13.2 % (11.6-14.6); RBC Distribution Width SD 46.2 fl (35.1-43.9); Red Blood Count 4.43 M/mm3 (4.2-5.4); White Blood Count 15.7 K/mm3 (4.4-11.0)
[2023-02-01] MEDS: MethylPREDNISolone 125 MG/2 ML Vial IV (12:07)
[2023-02-01 12:19] LABS: D-Dimer Quantitative (DVT/PE) 0.85 FEU/ug/m (0.27-0.49)
--- NOTE | 2023-02-01 12:22 | CT_ITS ---
STUDY: CTA CHEST REASON FOR EXAM: Female, 47 years old. Elevated d-dimer, shortness of breath, hx PE RADIATION DOSAGE (If Supplied By Facility): CTDIvol = ( 16.71 ) mGy, DLP = ( 463.72 ) mGycm TECHNIQUE: The examination was performed with the intravenous administration of IV 100mL Isovue-370. Post-processing of the angiographic images was performed, with multiplanar reformation and 3D reconstruction. Individualized dose optimization techniques were used for this CT. COMPARISON: Comparison is made with prior study April 27, 2019. FINDINGS: Normal enhancement of the main pulmonary artery and right and left pulmonary arteries. Normal enhancement of the bilateral peripheral pulmonary arteries. There is no demonstrated pulmonary embolism. Normal thoracic aorta and visualized great vessels. There is no demonstrated aortic dissection. Normal heart and pericardium. Normal mediastinum. Normal hilar regions. Normal visualized trachea and bronchi. The lungs are well expanded. Patchy areas of groundglass appearance involving both upper and lower lobes more prominent in the lower lobes. An infectious process should be ruled out. Normal pleura. Normal chest wall structures. Normal osseous structures. Normal visualized upper abdomen. CT/CTA Chest W/WO Contrast IMPRESSION: No evidence of pulmonary embolism. Bilateral areas of the groundglass appearance worse in the lower lobes. An infectious process should be ruled out. Electronically Signed: Julio C Prasad MD at 13:26 EDT ,
[2023-02-01 12:34] LABS: Anion Gap 11 (5-15); BUN 13 mg/dL (7-18); BUN/Creat Ratio 14.2 RATIO (10-20); Calcium,Total 9.1 mg/dL (8.5-10.1); Chloride 110 mmol/L (98-107); Creatinine, Serum 0.91 mg/dL (0.55-1.02); EST Glomerular Filtration Rate 71 mL/min (>60); Est Glom Filt Rate - Afr Amer 86 mL/min (>60); Estimated Creatinine Clearance 81.59 ml/min; Glucose 89 mg/dL (74-106); Potassium 2.4 mmol/L (3.5-5.1); Sodium Level 142 mmol/L (136-145); Troponin-I HS 4 pg/mL (3.0-54.0)
[2023-02-01 12:44] VITALS: O2SAT 97
[2023-02-01] MEDS: Potassium Chloride Oral Tablet 20 MEQ 40 MEQ PO ×2 (12:55→14:42)
[2023-02-01 13:19] VITALS: O2SAT 97
[2023-02-01 14:05] LABS: Magnesium 1.8 mg/dL (1.6-2.6)
[2023-02-01] MEDS: Potassium Chloride 10mEq/100mL 10 MEQ/100 ML IV.SOLN. 100 MEQ IV BOLUS ×2 (14:42→16:15)
[2023-02-01] MEDS: Ketorolac 15 MG/ML Vial IV (14:42)
[2023-02-01] MEDS: Doxycycline 100 MG CAPSULE PO (15:03)
[2023-02-01 15:44] LABS: Troponin-I HS 6 pg/mL (3.0-54.0)
--- NOTE | 2023-02-01 16:37 | ED.RN ---
PT STATES SHE IS DONE, WANTS TO GO HOME AND DOES NOT WANT ANYMORE POTASSIUM. STATES IT IS TOO UNCOMFORTABLE. EXPLAINED IT IS DILUTED AND GOING TWICE SLOW NORMAL. PT STATES SHES JUST READY TO GO.
--- NOTE | 2023-02-01 17:27 | ED.RN ---
Patient removed own IV's and refused to stay for d/c paperwork. Signed AMA paperwork willingly. Ambulatory from dept., gait steady.
== END 2023-02-01 17:28 | disposition left against medical advice (07) ==
PROVIDERS: Physician Assistant; Emergency Provider Emergency Medicine; PCP Family Medicine; Visit Provider Emergency Medicine
DX: R06.02 Shortness of breath (principal); R07.9 Chest pain, unspecified; J18.9 Pneumonia, unspecified organism; E87.6 Hypokalemia; F17.210 Nicotine dependence, cigarettes, uncomplicated
CPT/HCPCS: 71046; 71275; 80048; 83735; 84484; 85025; 85379; 87428; 93005; 94640; 96365; 96366; 96375; 99284; J7030; Q9967; A4216

== ENCOUNTER 2023-02-04 02:56 | Emergency (ER) | payer SELFPAY ==
[2023-02-04 02:57] VITALS: BP 127/82; PULSE 80; RESP 20; TEMP 35.6; O2SAT 95; BMI 30.6
--- NOTE | 2023-02-04 03:04 | RAD_ITS ---
INDICATION: shortness of breath EXAMINATION/TECHNIQUE: X-RAY - XR Chest 1 View COMPARISON: Two-view chest x-ray from 02/01/2023 FINDINGS: LINES/DEVICES: None. LUNGS: Mild residual bibasilar opacities, improved in the interval. No sizable pleural effusion. No pneumothorax detected. MEDIASTINUM AND CARDIOVASCULAR STRUCTURES: Heart size within normal limits. Mediastinal contours unremarkable. BONES AND SOFT TISSUES: No acute findings. RAD/Chest 1 View (Portable) IMPRESSION: Improving bibasilar infiltrate Electronically Signed: Nigel Hoffman MD at 4:19 EDT ,
--- NOTE | 2023-02-04 03:05 | EDS_ITS ---
HPI History of Present Illness Chief Complaint: Shortness of Breath Narrative Narrative: 47-year-old female presents via EMS after being seen in the emergency department a few days ago, diagnosed with pneumonia, and hypokalemia. She did not want to stay for potassium supplementation and wanted to take oral potassium so she signed out AGAINST MEDICAL ADVICE. Yesterday, she began having nausea and vomiting along with diffuse abdominal pain. She still remains short of breath. She has had prior abdominal surgeries including . She states she has vomited more than 10 times without any blood in her emesis. No exacerbating or alleviating factors. PFSH PFS Medical History Bipolar 1 disorder Fibromyalgia History of venous thromboembolism Hypokalemia Kidney stones Migraines Psoriasis Psoriasis Home Medications baclofen 10 mg tablet 10 mg PO TID BACK PAIN 04/27/19 [History Last Taken 02/01/23] sumatriptan succinate 100 mg tablet 100 mg PO .X1 PRN 04/26/20 [History Last Taken 01/31/23] acetaminophen 325 mg tablet (Aphen) 650 mg PO Q4H PRN pain 02/01/23 [History Last Taken 02/01/23] doxycycline hyclate 100 mg tablet 100 mg PO BID #10 tabs 02/01/23 [Rx Last Taken Unknown] gabapentin 600 mg tablet 600 mg PO Q8H 02/01/23 [History Last Taken 02/01/23] potassium chloride 10 mEq capsule,extended release 20 meq (2 x 10 mEq) PO DAILY 5 days #10 caps 02/01/23 [Rx Last Taken Unknown] Allergy/AdvReac Type Severity Reaction Status Date / Time adhesive tape Allergy Swelling Verified 02/04/23 03:00 Penicillins Allergy Anaphylaxis Verified 02/04/23 03:00 bupropion [From Wellbutrin] AdvReac Other Verified 02/04/23 03:00 diphenhydramine HCl AdvReac IV route Verified 02/04/23 03:00 [From Benadryl] causes panic attack. can take po Surgical History H/O: hysterectomy Social History Smoking Status: Current every day smoker tobacco type: cigarettes substance use type: does not use ROS ROS ED ROS Narrative Constitutional: No fever, no chills. HEENT: No sore throat. No neck pain. No loss of vision. No rhinorrhea. Cardiovascular: No chest pain. No palpitations. No pedal edema. Respiratory: Positive cough, positive shortness of breath. Abdominal: Diffuse abdominal pain since yesterday. Positive nausea and vomiting without hematemesis. Genitourinary: No dysuria. No hematuria. Musculoskeletal: No myalgias. No arthralgias. Neurologic: No headaches. No dizziness. No lightheadedness. Skin: No rash. No change in color. Psychiatric: No depression. Mild anxiety. EXAM Physical Exam Narrative Exam Narrative: Afebrile. Vital signs noted. HEENT: Normocephalic. Atraumatic. PERRL, EOMI. Neck soft and supple. No point tenderness or step off. Cardiovascular: Regular rate and rhythm. No murmurs, rubs, or gallops appreciated. Respiratory: No tachypnea. Lungs clear to auscultation bilaterally. Gastrointestinal: Abdomen soft, mild diffuse tenderness to palpation with normoactive bowel sounds. No rebound or guarding. Neurological: Awake. Alert. Nonfocal, nonlateralizing. Skin: No rash. Normal color. No pallor. Musculoskeletal: No pedal edema. Full range of motion extremities. Const Vital Signs: 02/04/23 02:57 02/04/23 03:21 02/04/23 05:42 Temperature 96.1 F L Temperature Source Temporal Pulse Rate 80 90 Respiratory Rate 20 H 16 Respiratory Effort Labored Blood Pressure 127/82 H Blood Pressure Mean 97 Pulse Ox 95 97 Oxygen Delivery Method Room Air MDM MDM MDM Narrative Medical decision making narrative: I reviewed the patient's prior records and I am actually familiar with her becau se I saw her in conjunction with the [facility]. She had signed out AGAINST MEDICAL ADVICE because she did not want to wait for potassium supplementation. It had been replaced orally. She had an extensive work-up for her shortness of breath. She did have groundglass appearance on her CTA of the chest but no evidence of pulmonary embolism. In today's differential, given that she has had abdominal pain and nausea and vomiting, there is a suspicion of pancreatitis versus small bowel obstruction versus nonspecific abdominal pain. I will obtain a chest x- ray to see if she has had consolidation of her pneumonia, however pulse ox is 95% on room air and her lungs are clear to auscultation bilaterally. I do feel CT imaging is required. I will obtain a CBC and a CMP to recheck her potassium. I reviewed her laboratory work and she has a normal white count of 9.3, hemoglobin Norval at 14.7, hematocrit 44.3, platelet count normal at 190. I reviewed her CMP and she has a normal potassium today of 3.5, chloride slightly elevated at 111 which I think is nonspecific. BUN normal at 10 with creatinine 0.76. LFTs are grossly unremarkable with an AST of 20, ALT normal at 25, alk phos 81. Lipase is low at 12, down from previous. Chest x-ray in 1 view was interpreted by myself independently which shows improvement of her bilateral infiltrates. Patient did develop her migraine headache in states she usually gets injections of Imitrex. She was given 6 mg subcutaneously for her migraine headache. I do not feel CT imaging of the brain is indicated. I reviewed the CT report of her abdomen and pelvis which shows no evidence of obstruction or appendicitis. There are dilated fluid-filled large intestine consistent with diarrheal state according to the radiologist. At this point in time, as she has a normal potassium, she was told that she could stop potassium supplementation which may be causing her nausea and vomiting. I offered to write her for an antiemetic but she states she has Zofran already at home. I do not feel she requires observation or admission. She will finish her antibiotics for her community-acquired pneumonia. She will follow-up with her primary care provide r. Return instructions to the emergency department were reviewed. Disposition is discharged home in stable condition. History & Record Review Discussion w/independent historian: Patient Additional record(s) reviewed:: Prior ED visit and Prior labs Lab Data Attestation: I reviewed the patient's lab results. Labs: Laboratory Results - last 24 hr 02/04/23 02/04/23 03:10 04:45 WBC 9.3 RBC 4.62 Hgb 14.7 Hct 44.3 MCV 95.9 MCH 31.8 MCHC 33.2 RDW Std Deviation 48.8 H RDW Coeff of Flavia 13.7 Plt Count 190 MPV 10.8 Immature Gran % (Auto) 0.300 Neut % (Auto) 76.0 H Lymph % (Auto) 17.6 L [place] % (Auto) 4.8 Eos % (Auto) 1.0 Baso % (Auto) 0.3 Absolute Neuts (auto) 7.1 Absolute Lymphs (auto) 1.63 Nucleated RBC % 0 Differential Comment SCANNED Platelet Estimate ADEQUATE Sodium Cancelled 139 Potassium Cancelled 3.5 Chloride Cancelled 111 H Carbon Dioxide Cancelled 21.0 Anion Gap Cancelled 7 BUN Cancelled 10 Creatinine Cancelled 0.76 Estim Creat Clear Calc Cancelled 97.69 Est GFR (MDRD) Af Amer Cancelled 105 Est GFR (MDRD) Non-Af Cancelled 87 BUN/Creatinine Ratio Cancelled 13.1 Glucose Cancelled 110 H Calcium Cancelled 8.3 L Total Bilirubin Cancelled 0.40 AST Cancelled 20 ALT Cancelled 25 Alkaline Phosphatase Cancelled 81 Total Protein Cancelled 6.6 Albumin Cancelled 3.0 L Globulin Cancelled 3.6 Albumin/Globulin Ratio Cancelled 0.8 L Lipase Cancelled 12 L Radiography Diagnostic Testing: Clinical Impression(s) from Imaging Studies Chest X-Ray 02/04/23 03:04 IMPRESSION: Improving bibasilar infiltrate Electronically Signed: Nigel Hoffman MD at 4:19 EDT , Abdomen/Pelvis CT 02/04/23 04:09 IMPRESSION: 1. Bilateral pulmonary infiltrate. 2. Fluid-filled loops of large bowel compatible with diarrheal state. 3. Mildly dilated common bile duct with unremarkable gallbladder. Follow-up as clinically warranted. 4. Nonobstructing bilateral nephrolithiasis. Electronically Signed: Nigel Hoffman MD at 5:18 EDT , Discharge Plan Triage Chief Complaint: Shortness of Breath ED Provider: Carlos Willams Dx/Rx/DC Orders Clinical Impression: Migraine headache, Nausea and vomiting, Pneumonia Instructions: ED, Migraine (Classical), ED Pneumonia (Adult), ED Vomiting (Adult) Prescriptions: No Action baclofen 10 MG tablet 10 mg PO TID Patient Comments: Take 1 tablet by mouth three times daily. sumatriptan succinate 100 MG tablet 100 mg PO .X1 PRN gabapentin 600 mg tablet 600 mg PO Q8H acetaminophen [Aphen] 325 mg tablet 650 mg PO Q4H PRN (Reason: pain) doxycycline hyclate 100 mg tablet 100 mg PO BID Qty: 10 0RF potassium chloride 10 mEq capsule, extended release 20 meq PO DAILY 5 Days Qty: 10 0RF Primary Care Provider: Dionicio Armijo Referrals: Dionicio Armijo MD [Primary Care Provider] - 1 Week if not improving Activity Restrictions/Additional Instructions: Finish the rest of your antibiotics. Take the Zofran that you already have at home for nausea and vomiting. Disposition Disposition: Home, Self Care
[2023-02-04] MEDS: 0.9% Normal Saline (1000mL) 1,000 ML 1000 ML IV (03:25)
[2023-02-04 03:26] LABS: Absolute Lymphocyte Count 1.63 X10^3/uL (0.83-4.51); Absolute Neutrophil Count 7.1 X10^3/uL (2.0-7.7); Basophil# 0.03 X10^3/uL; Basophil% 0.3 % (0-1); Eosinophil# 0.09 X10^3/uL; Hematocrit 44.3 % (37-47); Hemoglobin 14.7 g/dL (12.0-15.0); Lymphocyte # 1.63 X10^3/ul (0.83-4.51); Lymphocyte % 17.6 % (19-41); Mean Corp Hgb Conc 33.2 g/dL (32-36); Mean Corpuscular Hgb 31.8 pg (27.0-32.0); Mean Corpuscular Volume 95.9 fL (81-99); Mean Platelet Vol. 10.8 fl (6.2-12.0); Monocyte# 0.45 X10^3/uL; Monocyte% 4.8 % (0-10); NRBC Flagged by Analyzer 0 % (0-5); Neutrophil # 7.05 X10^3/uL (2.7-7.7); POSITIVE COUNT YES; Platelet Count 190 K/mm3 (150-450); RBC Distribution Width CV 13.7 % (11.6-14.6); RBC Distribution Width SD 48.8 fl (35.1-43.9); Red Blood Count 4.62 M/mm3 (4.2-5.4); White Blood Count 9.3 K/mm3 (4.4-11.0)
[2023-02-04] MEDS: Ondansetron 4 MG/2 ML Vial IV (03:26)
[2023-02-04 03:41] LABS: Differential Indicated SCAN CRITERIA MET
--- NOTE | 2023-02-04 04:09 | CT_ITS ---
INDICATION: Nausea, vomiting, diarrhea, pain EXAMINATION: CT Abdomen And Pelvis W/ Contrast Injection TECHNIQUE: Helically acquired images were obtained of the abdomen and pelvis following IV contrast. 2-D reconstructions reviewed. A radiation dose optimization technique was used for this scan. IV Contrast dosage and agent: 100 cc [id number] Oral contrast: None. COMPARISON: Unenhanced CT abdomen and pelvis from 03/09/2021 FINDINGS: LOWER CHEST: Multifocal bilateral groundglass alveolar opacities. Heart size within normal limits. LIVER: Homogeneous. No concerning lesion. GALLBLADDER AND BILIARY TREE: No calcified gallstones identified. No gallbladder wall edema demonstrated. Mildly dilated common bile duct measures up to 8 mm diameter. PANCREAS: Somewhat atrophic with no discrete mass or peripancreatic edema. SPLEEN: Normal size without concerning lesion. ADRENAL GLANDS: Unremarkable. KIDNEYS AND URETERS: Normal renal size and position. No perinephric edema or hydronephrosis. There are few small bilateral renal calyceal stones, no larger than 4 mm. No ureteral stones identified. Several small calcified pelvic phleboliths noted. No discrete renal mass. PERITONEUM: No significant free fluid. No peritoneal free air detected. RETROPERITONEUM: No retroperitoneal mass or pathologic fluid collection. BOWEL: Normal appendix posterior to cecum within right lower quadrant. No bowel obstruction or significant bowel thickening. No focal inflammatory change. Fluid-filled loops of large bowel with paucity of colonic fecal matter. LYMPH NODES: No enlarged mesenteric or retroperitoneal lymph nodes. VESSELS: Mild atherosclerosis. URINARY BLADDER: Unremarkable as visualized. REPRODUCTIVE ORGANS: No pelvic masses. ABDOMINAL WALL: No acute findings or significant hernia defect. BONES: Intact with no suspicious osseous lesion. CT/Abdomen/Pelvis W IV Cont ONLY IMPRESSION: 1. Bilateral pulmonary infiltrate. 2. Fluid-filled loops of large bowel compatible with diarrheal state. 3. Mildly dilated common bile duct with unremarkable gallbladder. Follow-up as clinically warranted. 4. Nonobstructing bilateral nephrolithiasis. Electronically Signed: Nigel Hoffman MD at 5:18 EDT ,
[2023-02-04 04:40] LABS: Differential Comment SCANNED
[2023-02-04 04:41] LABS: Platelet Estimate ADEQUATE (ADEQ)
[2023-02-04] MEDS: SUMAtriptan 6 MG/0.5 ML Vial SC (05:01)
[2023-02-04 05:04] LABS: ALB/GLOB Ratio 0.8 RATIO (0.9-2.4); AST(SGOT) 20 U/L (15-37); Alanine Aminotransfer ALT/SGPT 25 U/L (13-56); Alkaline Phosphatase 81 U/L (45-117); Anion Gap 7 (5-15); BUN 10 mg/dL (7-18); BUN/Creat Ratio 13.1 RATIO (10-20); Calcium,Total 8.3 mg/dL (8.5-10.1); Chloride 111 mmol/L (98-107); Creatinine, Serum 0.76 mg/dL (0.55-1.02); EST Glomerular Filtration Rate 87 mL/min (>60); Est Glom Filt Rate - Afr Amer 105 mL/min (>60); Estimated Creatinine Clearance 97.69 ml/min; Globulin 3.6 g/dL (2.2-4.2); Glucose 110 mg/dL (74-106); Lipase 12 U/L (13-75); Potassium 3.5 mmol/L (3.5-5.1); Protein, Total 6.6 g/dL (6.4-8.2); Sodium Level 139 mmol/L (136-145)
[2023-02-04 05:42] VITALS: PULSE 90; RESP 16; O2SAT 97
== END 2023-02-04 05:42 | disposition home or self-care (01) ==
PROVIDERS: Emergency Provider Emergency Medicine; PCP Family Medicine; Visit Provider Emergency Medicine
DX: J18.9 Pneumonia, unspecified organism (principal); G43.909 Migraine, unspecified, not intractable, without status migrainosus; R11.2 Nausea with vomiting, unspecified; F17.210 Nicotine dependence, cigarettes, uncomplicated
CPT/HCPCS: 71045; 74177; 80053; 83690; 85025; 96361; 96372; 96374; 99283; J7030; Q9967; A4216; J2405; J3030

== ENCOUNTER 2023-06-03 22:20 | Emergency (ER) | payer OTHER, SELFPAY ==
[2023-06-03 22:22] VITALS: BP 144/73; PULSE 92; RESP 20; TEMP 35.7; O2SAT 100
--- NOTE | 2023-06-03 22:35 | RAD_ITS ---
STUDY: X-RAY - SACRUM/COCCYX REASON FOR EXAM: Female, 47 years old. injury/pain TECHNIQUE: 4 view(s) of the sacrum and coccyx were obtained. COMPARISON: None. FINDINGS: Normal bilateral sacroiliac joints. Normal visualized sacral ala and fused sacral bodies. Normal sacrococcygeal junction with a normal angulation. Normal coccygeal segments. The presacral soft tissue structures are unremarkable. RAD/Sacrum-Coccyx min 2 Views IMPRESSION: Normal x-rays of the sacrum and coccyx. Electronically Signed: Cole Varma MD at 23:25 [facility] ,
--- NOTE | 2023-06-03 22:35 | RAD_ITS ---
STUDY: X-RAY - LEFT WRIST REASON FOR EXAM: Female, 47 years old. injury TECHNIQUE: 3 view(s) of the wrist were obtained. COMPARISON: None. FINDINGS: Normal visualized distal radius and ulna. Normal radiocarpal articulation. Normal distal radioulnar articulation. Normal carpal bones. Normal carpal articulations. Normal carpometacarpal articulation of the thumb. Normal second through fifth carpometacarpal articulations. Lucent linear lucency within one of the carpal bones on lateral projection. The soft tissue structures are unremarkable. RAD/Wrist min 3 Views IMPRESSION: Possible nondisplaced carpal bone fracture versus artifact Electronically Signed: Cole Varma MD at 23:33 EST ,
--- NOTE | 2023-06-03 22:36 | EDS_ITS ---
HPI HPI - Fall History of Present Illness Chief Complaint: Fall Occured/Mechanism Occurred: Today Mechanism/Context: Yes same level fall and Yes slip Narrative: At work, [employer], another employee had just mopped the tile kareem or, and she slipped on it. Narrative Narrative: Patient slipped on a wet floor and fell to her buttock and outstretched left hand. She has a pre-existing injury to the right wrist that she has wrapped and she states she reflexively put her right arm up to protect it. [id number]. Mitchell a pop in her left wrist and is having severe pain and some swelling there but trouble moving it. She denies any bowel or bladder dysfunction, radiation of pain or tingling into either lower extremity or left hand. She did not hit her head or her back but the pain radiates from her tailbone up her low back. [facility] Medical History Bipolar 1 disorder Fibromyalgia History of venous thromboembolism Hypokalemia Kidney stones Migraines Psoriasis Psoriasis Home Medications baclofen 10 mg tablet 10 mg PO TID BACK PAIN 04/27/19 [History Last Taken 02/01/23] sumatriptan succinate 100 mg tablet 100 mg PO .X1 PRN 04/26/20 [History Last Taken 01/31/23] acetaminophen 325 mg tablet (Aphen) 650 mg PO Q4H PRN pain 02/01/23 [History Last Taken 02/01/23] doxycycline hyclate 100 mg tablet 100 mg PO BID #10 tabs 02/01/23 [Rx Last Taken Unknown] gabapentin 600 mg tablet 600 mg PO Q8H 02/01/23 [History Last Taken 02/01/23] potassium chloride 10 mEq capsule,extended release 20 meq (2 x 10 mEq) PO DAILY 5 days #10 caps 02/01/23 [Rx Last Taken Unknown] Allergy/AdvReac Type Severity Reaction Status Date / Time Cephalosporins Allergy Severe Anaphylaxis Verified 06/03/23 22:22 adhesive tape Allergy Swelling Verified 06/03/23 22:22 Penicillins Allergy Anaphylaxis Verified 06/03/23 22:22 bupropion [From Wellbutrin] AdvReac Other Verified 06/03/23 22:22 diphenhydramine HCl AdvReac IV route Verified 06/03/23 22:22 [From Benadryl] causes panic attack. can take po Surgical History H/O: hysterectomy Social History Smoking Status: Current every day smoker tobacco type: cigarettes substance use type: does not use ROS ROS ED Constitutional Constitutional ED: Denies chills or fever(s) Eyes Eyes: Denies change in vision or diplopia ENT ENT ED: Denies ear pain, epistaxis, facial pain or rhinorrhea Cardiovascular Cardiovascular: Denies chest pain or palpitations Respiratory/Chest Respiratory/Chest: Denies cough or dyspnea Gastrointestinal Gastrointestinal: Denies abdominal pain, diarrhea, melena, nausea or vomiting Genitourinary Genitourinary ED: Denies dysuria or hematuria Musculoskeletal Musculoskeletal: Reports back pain and extremity pain; Denies neck pain Integumentary Denies abscess, Abrasions, laceration or rash Neurologic Neurologic: Denies confusion, headache(s), paresthesias or weakness EXAM Physical Exam Const Vital Signs: 06/03/23 22:22 Temperature 96.3 F L Temperature Source Temporal Pulse Rate 92 Respiratory Rate 20 H Blood Pressure 144/73 H Blood Pressure Mean 96 Pulse Ox 100 Oxygen Delivery Method Room Air Positive well nourished and well developed General Appearance ED: well developed and NAD HEENT Reports nasal mucous membranes and turbinates normal atraumatic Face and Sinus: Negative for facial tenderness Eyes PERRL and EOMs intact bilaterally Visual Acuity: other Other Details: no entrapment or pain with extraocular movements Neck full ROM and supple General: Negative for tenderness Chest Wall inspection of chest normal and palpation of chest normal Chest: symmetrical chest wall rise; Negative for crepitus or tenderness Resp normal respiratory effort and clear to auscultation bilaterally Percussion: other equal BS bilat Cardio no murmurs Rate: regular rate Rhythm: regular rhythm Back/Spine Cervical Spine: Negative for cervical spine tenderness Thoracic Spine / Upper Back: Negative for thoracic spinal tenderness Lumbar Spine / Lower Back: lumbar spinal tenderness L2, L3, L4 and L5 (And coccyx, no crepitance) Extremity Extremity Narrative: Ecchymosis, swelling, limited range of motion to the left wrist and distal forearm. Limited pronation and supination due to pain. There is some mild tenderness in the snuffbox and increased pain there with axial loading of the thumb. Full range of motion of all digits and no tenderness in the hand. Nontender at the elbow and all other joints of all 4 extremities. General Extremety ED: Yes tenderness Neuro oriented x3, CN's II-XII intact bilaterally, moves all extremities, no focal motor deficits, no sensory deficits noted and gait normal Robert Coma Scale: document GCS findings Spontaneous Obeys Commands Oriented 15 Sensorium / Orientation: awake and alert Psych mental status grossly normal and thought process normal Skin no wounds Lesions: no lesions Rashes: no rashes MDM MDM MDM Narrative Medical decision making narrative: X-rays of her injured areas were obtained including the lumbar spine where she has tenderness from axial loading injury. Three-view x-ray series of the lumbar spine negative for any acute fracture on my interpretation. 4 view x-ray series of the coccyx and sacrum appears to show an angulated nondisplaced coccygeal fracture without any other noted injuries, however radiology states this is within normal limits and does not appear to be fractured and is normal. Three- view x-ray series of the left wrist on my interpretation is negative for any acute traumatic abnormality. Given that the patient does have some pain in the scaphoid, she will be placed in a thumb spica splint and advised to follow-up within the next week for reevaluation and possibly repeat x-rays if still having pain and tenderness there. I will have her follow-up with [facility] for this, she has an appointment with orthopedics regarding her right wrist in about 2 or 3 weeks, I encouraged her to discuss the current status of her left wrist when she is there. She was given Naprosyn here as well as a [place] for pain as she has a ride, but I do not think she needs to be prescribed narcotics for this. Radiography Diagnostic Testing: Clinical Impression(s) from Imaging Studies Sacrum and Coccyx X-Ray 06/03/23 22:35 IMPRESSION: Normal x-rays of the sacrum and coccyx. Electronically Signed: Cole Varma MD at 23:25 EST , Lumbar Spine X-Ray 06/03/23 23:00 IMPRESSION: Normal x-ray examination of the lumbar spine. Electronically Signed: Cole Varma MD at 23:23 EST , Discharge Plan Triage Chief Complaint: Fall ED Provider: Kun Newby Dx/Rx/DC Orders Clinical Impression: Left wrist sprain, Fall from slipping on wet surface, Coccygeal contusion Instructions: ED Coccyx or Sacrum Contusion, ED Wrist Sprain Prescriptions: No Action baclofen 10 MG tablet 10 mg PO TID Patient Comments: Take 1 tablet by mouth three times daily. sumatriptan succinate 100 MG tablet 100 mg PO .X1 PRN gabapentin 600 mg tablet 600 mg PO Q8H acetaminophen [Aphen] 325 mg tablet 650 mg PO Q4H PRN (Reason: pain) doxycycline hyclate 100 mg tablet 100 mg PO BID Qty: 10 0RF potassium chloride 10 mEq capsule, extended release 20 meq PO DAILY 5 Days Qty: 10 0RF Primary Care Provider: Dionicio Armijo Referrals: [facility]] - As soon as possible (call for appt) Dionicio Armijo MD [Primary Care Provider] - Disposition Disposition: Home, Self Care
[2023-06-03] MEDS: Ibuprofen 600 MG Tablet PO (22:50)
--- NOTE | 2023-06-03 23:00 | RAD_ITS ---
STUDY: X-RAY - LUMBAR SPINE REASON FOR EXAM: Female, 47 years old. injury/pain TECHNIQUE: 2 view(s) of the lumbar spine were obtained. COMPARISON: None FINDINGS: Normal lumbar lordosis. There is no substantial scoliosis. There is a normal alignment of the vertebrae. Normal vertebral bodies and endplates. Normal disc space heights. The soft tissue structures are unremarkable. RAD/Lumbar Spine 2 or 3 Views IMPRESSION: Normal x-ray examination of the lumbar spine. Electronically Signed: Cole Varma MD at 23:23 EST ,
--- OUTSIDE RECORDS SUMMARY | 2023-06-03 23:10 | XMS RPT_ITS | CCD ---
Author Name Unknown Address [address] [facility] [address] [place] [address] Organization [facility] Care Team Providers Care Mechanical Adjuster Name Role Phone Khalif Armijo MD Primary Care Provider NO, PHYSICIAN Primary Care Unavailable MILA CLOUD Attending Unavailable Khalif Armijo MD Primary Care Provider KHALIF ARMIJO Primary Care Unavailable KHALIF ARMIJO Primary Care Unavailable RANJEET DEL RIO Referring Unavailable KHALIF ARMIJO Primary Care Unavailable KHALIF ARMIJO Primary Care Unavailable KHALIF ARMIJO Referring Unavailable KHALIF ARMIJO Primary Care Unavailable KHALIF ARMIJO Attending Unavailable KHALIF ARMIJO Primary Care Unavailable KHALIF ARMIJO Primary Care Unavailable Allergies Allergy Classification Reported Allergen(s) Allergy Type Date of Onset Reaction(s) Facility (20 sources) acetaminophen / HYDROcodone; Translations: [HYDROCODONE-ACETA MINOPHEN] [facility]) Penicillins; Translations: [PENICILLINS] Propensity to adverse reactions to drug (disorder) 6 Unknown [facility] Repository (2 sources) OTHER; Translations: [OTHER] Propensity to adverse reactions (disorder) 6 AOF [facility] Repository (20 sources) vidaylin vitamins [Other] Propensity to adverse reactions 6 GI [facility] Work Phone: (1 source) Cephalosporins (Antibiotic); Translations: [CEPHALOSPORINS] Propensity to adverse reactions to drug (disorder) 3 [facility] Repository Medications Current Medications Medication Drug Class(es) Dates Sig (Normalized) Sig (Original) acetaminophen 325 mg / butalbital 50 mg / caffeine 40 mg oral tablet (8 sources) Barbiturate, Central Nervous System Stimulant, Methylxanthine Start: 02-19-2022 End: 04-11-2022 acetaminophen 325 mg-caffeine 40 mg-butalbital 50 mg (FIORICET) per tablet Indications: Migraine with aura, not intractable, without status migrainosus Take 1 tablet by mouth every 4 hours as needed for up to 30 days. Use sparingly, not in same 6h as baclofen 20 tablet 2 03/12/2022 04/11/2022 Active Completed/Discontinued Medications Medication Drug Class(es) Dates Sig (Normalized) Sig (Original) Acetaminophen / Caffeine (20 sources) Central Nervous System Stimulant, Methylxanthine End: 02-19-2022 ACETAMINOPHEN/CAFF EINE (EXCEDRIN ASPIRIN FREE ORAL) Take by mouth. 0 02/19/2022 Discontinued Problems Active Problems Problem Classification Problem Date Documented Date Episodic/Chronic Abdominal pain (1 source) Upper abdominal pain, unspecified; Translations: [Upper abdominal pain, unspecified] Onset: 12-13-2017 Episodic Anxiety disorders (20 sources) Posttraumatic stress disorder; Translations: [Post-traumatic stress disorder, unspecified] 05-05-2021 Chronic Diabetes mellitus without complication (1 source) Increased glucose level; Translations: [Other abnormal glucose] Episodic Headache, including migraine (1 source) Headache; Translations: [Headache] Onset: 12-13-2017 Episodic Headache; including migraine (20 sources) Migraine without aura; Translations: [Migraine without aura, not intractable, without status migrainosus] Onset: 08-27-2006 09-16-2016 Chronic Immunizations and screening for infectious disease (2 sources) Suspected disease caused by 2019-nCoV; Translations: [Suspected COVID-19 virus infection] Episodic Influenza (1 source) Influenza-like illness; Translations: [Influenza due to unidentified influenza virus with other respiratory manifestations] 01-06-2023 Episodic Intracranial injury (1 source) Concussion with no loss of consciousness; Translations: [Concussion without loss of consciousness, initial encounter] Episodic Mood disorders (20 sources) Bipolar I disorder; Translations: [Bipolar disorder, unspecified] 12-22-2017 Chronic Nonspecific chest pain (2 sources) Other chest pain; Translations: [Other chest pain] Onset: 07-25-2022 Episodic Other circulatory disease (1 source) Elevated blood-pressure reading, without diagnosis of hypertension; Translations: [Elevated blood pressure reading without diagnosis of hypertension] Onset: 05-25-2023 Episodic Other connective tissue disease (1 source) Radial styloid tenosynovitis; Translations: [Radial styloid tenosynovitis [de Quervain]] Episodic Other ear and sense organ disorders (1 source) Otalgia, right ear; Translations: [Otalgia, unspecified] Episodic Other ear and sense organ disorders (1 source) Acute otitis externa of right ear; Translations: [Unspecified acute noninfective otitis externa, right ear] 04-26-2023 Episodic Other injuries and conditions due to external causes (1 source) Closed injury of head; Translations: [Unspecified injury of head, initial encounter] Episodic Other lower respiratory disease (1 source) Cough; Translations: [Acute cough] 01-06-2023 Episodic Other non-traumatic joint disorders (1 source) Pain in right wrist; Translations: [Right wrist pain] Onset: 05-25-2023 Episodic Other screening for suspected conditions (not mental disorders or infectious disease) (1 source) Patient encounter status; Translations: [Encounter for screening mammogram for malignant neoplasm of breast] Episodic Otitis media and related conditions (4 sources) Acute right otitis media; Translations: [Otitis media, unspecified, right ear] Onset: 05-25-2023 Episodic Pneumonia (except that caused by tuberculosis or sexually transmitted disease) (2 sources) Pneumonia, unspecified organism; Translations: [Pneumonia, unspecified organism] Onset: 07-25-2022 Episodic Schizophrenia and other psychotic disorders (20 sources) Schizoaffective disorder; Translations: [Schizoaffective disorder, unspecified] 05-05-2021 Chronic Spondylosis; intervertebral disc disorders; other back problems (20 sources) Lumbar spondylosis; Translations: [Spondylosis without myelopathy or radiculopathy, lumbar region] Onset: 12-01-2013 12-01-2013 Chronic Substance-related disorders (1 source) Smoker; Translations: [Nicotine dependence, unspecified, uncomplicated] Chronic Superficial injury; contusion (1 source) Hematoma of occipital scalp; Translations: [Contusion of scalp, initial encounter] Episodic Unclassified (1 source) Lumbar pain; Translations: [Lumbar pain] Onset: 05-25-2023 Past or Other Problems Problem Classification Problem Date Documented Da te Episodic/Chronic Other bone disease and musculoskeletal deformities (20 sources) Cervical somatic dysfunction; Translations: [Segmental and somatic dysfunction of cervical region] Onset: 06-03-2017 06-03-2017 Episodic Other bone disease and musculoskeletal deformities (20 sources) Somatic dysfunction of thoracic region; Translations: [Segmental and somatic dysfunction of thoracic region] Onset: 06-03-2017 06-03-2017 Episodic Other bone disease and musculoskeletal deformities (20 sources) Somatic dysfunction of lumbar region; Translations: [Segmental and somatic dysfunction of lumbar region] Onset: 06-03-2017 06-03-2017 Episodic Other connective tissue disease (1 source) Pain in right foot; Translations: [Foot pain, right] Onset: 09-21-2022 Episodic Other injuries and conditions due to external causes (1 source) Unspecified injury of right foot, initial encounter; Translations: [Foot injury, right, initial encounter] Onset: 09-21-2022 Episodic Other lower respiratory disease (20 sources) Multiple nodules of lung; Translations: [Other nonspecific abnormal finding of lung field] Onset: 05-04-2019 08-07-2021 Episodic Other lower respiratory disease (1 source) Other nonspecific abnormal finding of lung field; Translations: [Lung nodules] Onset: 10-17-2021 Episodic Spondylosis; intervertebral disc disorders; other back problems (20 sources) Low back pain; Translations: [Lumbago] Onset: 07-17-2013 07-17-2013 Episodic Sprains and strains (20 sources) Low back strain; Translations: [Strain of muscle, fascia and tendon of lower back, initial encounter] Onset: 12-01-2013 09-22-2018 Episodic Results Test Name Value Interpretation Reference Range Facil ity Vital Signs Date Time Vital Sign Value Performing Clinician Faci corwin 04-26-2023 13:54-0500 Body temperature 97.9 [degF] Chico Gaming APRN.CNP Work Phone: [facility] 04-26-2023 13:54-0500 Body weight 94.62 kg Chico Gaming APRN.CNP Work Phone: [facility] 04-26-2023 13:54-0500 Diastolic blood pressure 90 mm[Hg] Chico Pendlebury RATE ANALYST.ASSISTANT WRESTLING COACH Work Phone: [facility] 04-26-2023 13:54-0500 Heart rate 88 /min Chico Pendlebury RATE ANALYST.ASSISTANT WRESTLING COACH Work Phone: [facility] 04-26-2023 13:54-0500 Respiratory rate 18 /min [facility] RATE ANALYST.ASSISTANT WRESTLING COACH Work Phone: [facility] 04-26-2023 13:54-0500 SaO2% (BldA) [Mass fraction] 98 % [facility] RATE ANALYST.ASSISTANT WRESTLING COACH Work Phone: [facility] 04-26-2023 13:54-0500 Systolic blood pressure 142 mm[Hg] [facility] RATE ANALYST.ASSISTANT WRESTLING COACH Work Phone: [facility] 01-06-2023 15:52-0400 Body temperature 98.49 [degF] Cole Frazier MD Work Phone: [facility] 01-06-2023 15:52-0400 Body weight 95.44 kg Cole Frazier MD Work Phone: [facility] 01-06-2023 15:52-0400 Diastolic blood pressure 80 mm[Hg] Cole Frazier MD Work Phone: [facility] 01-06-2023 15:52-0400 Heart rate 86 /min Cole Frazier MD Work Phone: [facility] 01-06-2023 15:52-0400 Respiratory rate 18 /min Cole Frazier MD Work Phone: [facility] 01-06-2023 15:52-0400 SaO2% (BldA) [Mass fraction] 100 % Cole Frazier MD Work Phone: [facility] 01-06-2023 15:52-0400 Systolic blood pressure 122 mm[Hg] Cole Frazier MD Work Phone: [facility] 04-22-2022 15:33-0500 Diastolic blood pressure 82 mm[Hg] Bruna Parker RATE ANALYST.ASSISTANT WRESTLING COACH Work Phone: [facility] 04-22-2022 15:33-0500 Heart rate 82 /min Bruna Haagen RATE ANALYST.ASSISTANT WRESTLING COACH Work Phone: [facility] 04-22-2022 15:33-0500 Respiratory rate 18 /min Bruna Haagen RATE ANALYST.ASSISTANT WRESTLING COACH Work Phone: [facility] 04-22-2022 15:33-0500 SaO2% (BldA) [Mass fraction] 96 % Bruna Haagen RATE ANALYST.ASSISTANT WRESTLING COACH Work Phone: [facility] 04-22-2022 15:33-0500 Systolic blood pressure 114 mm[Hg] Bruna Haagen RATE ANALYST.ASSISTANT WRESTLING COACH Work Phone: [facility] 04-08-2022 12:56-0500 Body temperature 96.91 [degF] Callie Praisler-Wood RATE ANALYST.ASSISTANT WRESTLING COACH Work Phone: [facility] 04-08-2022 12:56-0500 Body weight 95.71 kg Callie Praisler-Wood RATE ANALYST.ASSISTANT WRESTLING COACH Work Phone: [facility] 04-08-2022 12:56-0500 Diastolic blood pressure 72 mm[Hg] Callie Praisler-Wood RATE ANALYST.ASSISTANT WRESTLING COACH Work Phone: [facility] 04-08-2022 12:56-0500 Heart rate 88 /min Callie Praisler-Wood RATE ANALYST.ASSISTANT WRESTLING COACH Work Phone: [facility] 04-08-2022 12:56-0500 Respiratory rate 16 /min Callie Praisler-Wood RATE ANALYST.ASSISTANT WRESTLING COACH Work Phone: [facility] 04-08-2022 12:56-0500 SaO2% (BldA) [Mass fraction] 100 % Callie Praisler-Wood RATE ANALYST.ASSISTANT WRESTLING COACH Work Phone: [facility] 04-08-2022 12:56-0500 Systolic blood pressure 122 mm[Hg] Callie Praisler-Wood RATE ANALYST.ASSISTANT WRESTLING COACH Work Phone: [facility] 03-16-2022 14:47-0500 Body temperature 97.7 [degF] Ranjeet Del Rio RATE ANALYST.ASSISTANT WRESTLING COACH Work Phone: [facility] 03-16-2022 14:47-0500 Body weight 92.9 kg Ranjeet Del Rio RATE ANALYST.ASSISTANT WRESTLING COACH Work Phone: [facility] 03-16-2022 14:47-0500 Diastolic blood pressure 92 mm[Hg] Ranjeet Del Rio RATE ANALYST.ASSISTANT WRESTLING COACH Work Phone: [facility] 03-16-2022 14:47-0500 Heart rate 82 /min Ranjeet Del Rio RATE ANALYST.ASSISTANT WRESTLING COACH Work Phone: [facility] 03-16-2022 14:47-0500 Respiratory rate 18 /min Ranjeet Del Rio RATE ANALYST.ASSISTANT WRESTLING COACH Work Phone: [facility] 03-16-2022 14:47-0500 SaO2% (BldA) [Mass fraction] 99 % Ranjeet Del Rio RATE ANALYST.ASSISTANT WRESTLING COACH Work Phone: [facility] 03-16-2022 14:47-0500 Systolic blood pressure 144 mm[Hg] Ranjeet Del Rio RATE ANALYST.ASSISTANT WRESTLING COACH Work Phone: [facility] 03-12-2022 17:00-0400 Body weight 92.08 kg NA Lugo PA-C Work Phone: [facility] 03-12-2022 17:00-0400 Diastolic blood pressure 74 mm[Hg] NA Lugo PA-C Work Phone: [facility] 03-12-2022 17:00-0400 Heart rate 83 /min NA Lugo PA-C Work Phone: [facility] 03-12-2022 17:00-0400 Respiratory rate 16 /min NA Lugo PA-C Work Phone: [facility] 03-12-2022 17:00-0400 SaO2% (BldA) [Mass fraction] 99 % NA Lugo PA-C Work Phone: [facility] 03-12-2022 17:00-0400 Systolic blood pressure 118 mm[Hg] NA Lugo PA-C Work Phone: [facility] 02-19-2022 16:32-0400 Body weight 92.99 kg NA Lugo PA-C Work Phone: [facility] 02-19-2022 16:32-0400 Diastolic blood pressure 68 mm[Hg] NA Lugo PA-C Work Phone: [facility] 02-19-2022 16:32-0400 Heart rate 69 /min NA Lugo PA-C Work Phone: [facility] 02-19-2022 16:32-0400 Respiratory rate 16 /min NA Lugo PA-C Work Phone: [facility] 02-19-2022 16:32-0400 SaO2% (BldA) [Mass fraction] 99 % NA Lugo PA-C Work Phone: [facility] 02-19-2022 16:32-0400 Systolic blood pressure 122 mm[Hg] NA Lugo PA-C Work Phone: [facility] 11-22-2021 13:55-0400 Body temperature 99.9 [degF] Chio Vale APRN.ASSISTANT WRESTLING COACH Work Phone: [facility] 11-22-2021 13:55-0400 Body weight 92.08 kg Chio Vale APRN.ASSISTANT WRESTLING COACH Work Phone: [facility] 11-22-2021 13:55-0400 Diastolic blood pressure 66 mm[Hg] Chio Vale APRN.ASSISTANT WRESTLING COACH Work Phone: [facility] 11-22-2021 13:55-0400 Heart rate 122 /min Chio Vale APRN.ASSISTANT WRESTLING COACH Work Phone: [facility] 11-22-2021 13:55-0400 Respiratory rate 18 /min Chio Vale APRN.ASSISTANT WRESTLING COACH Work Phone: [facility] 11-22-2021 13:55-0400 SaO2% (BldA) [Mass fraction] 98 % Chio Vale APRN.ASSISTANT WRESTLING COACH Work Phone: [facility] 11-22-2021 13:55-0400 Systolic blood pressure 120 mm[Hg] Chio Vale APRN.ASSISTANT WRESTLING COACH Work Phone: [facility] 09-08-2021 16:20-0400 Body weight 92.53 kg NA Lugo PA-C Work Phone: [facility] 09-08-2021 16:20-0400 Diastolic blood pressure 76 mm[Hg] NA Lugo PA-C Work Phone: [facility] 09-08-2021 16:20-0400 Heart rate 90 /min NA Lugo PA-C Work Phone: [facility] 09-08-2021 16:20-0400 Respiratory rate 16 /min NA Lugo PA-C Work Phone: [facility] 09-08-2021 16:20-0400 SaO2% (BldA) [Mass fraction] 97 % NA Lugo PA-C Work Phone: [facility] 09-08-2021 16:20-0400 Systolic blood pressure 128 mm[Hg] NA Lugo PA-C Work Phone: [facility] Encounters Encounter Date Encounter Type Care Provider Facility Start: 05-25-2023 End: 05-25-2023 ambulatory [facility] Facility:[facility] Start: 05-25-2023 End: 05-26-2023 ambulatory [facility] Facility:[facility] Start: 05-11-2023 End: 05-11-2023 [facility] Facility:[facility] Start: 04-26-2023 End: 04-26-2023 ambulatory [facility] Facility:[facility] Start: 04-26-2023 End: 04-26-2023 Office outpatient visit 25 minutes Chico Gaming APRN.ASSISTANT WRESTLING COACH Work Phone: [facility] Procedures Date Procedure Procedure Detail Performing Clinician Start: 10-17-2021 Adult depression scr eening assessment NA Lugo PA-C Work Phone: Start: 09-08-2021 Adult depression scr eening assessment NA Parish RICHMOND Work Phone: Start: 08-07-2021 Ct thorax w/o contra st material Khalif Armijo MD Work Phone: Start: 08-07-2021 Mammography Screen Wst r Start: 07-19-2020 Lipid 1996 panel - S cherry or Plasma Khalif Armijo MD Work Phone: Start: 07-21-2018 Adult depression scr eening assessment Screen Wstr Plan of Treatment Date Care Activity Detail Author Start: 11-04-2030 Urine microalbumin profile [facility] Start: 07-25-2025 Diabetes Screening Diabetes Screenin g [facility] Start: 07-19-2025 Lipid 1996 panel - S cherry or Plasma Lipid Screening [facility] Start: 07-19-2025 Lipid panel Lipid Screening [facility] Start: 07-19-2025 LIPID SCREEN LIPID SCREEN [facility] Start: 02-20-2025 DIABETES SCREEN DIABETES SCREEN [facility] Start: 02-20-2025 Diabetes Screening Diabetes Screenin g [facility] Start: 01-08-2023 Covid-19 Vaccine ( season) Covid-19 Vaccine () [facility] Start: 01-08-2023 Influenza vaccination [facility] Start: 10-17-2022 Adult depression screening assessment DEPRESSION SCREENING [facility] Start: 09-08-2022 Adult depression screening assessment DEPRESSION SCREENING [facility] Start: 08-07-2022 End: 09-06-2022 Ct thorax w/o contrast material CT CHEST WO IVCON Radiology Routine Lung nodules Expected: 08/07/2022, Expires: 09/06/2022 [facility] Work Phone: Immunizations Immunization Date Immunization Notes Care Provider Maria L lund 03-12-2022 pneumococcal Conjuga te, unspecified formulation ESTIVEN Lugo PA-C Work Phone: [facility] Work Phone: 03-12-2022 pneumococcal (PCV20) vaccine, 20 valent (PREVNAR 20) ESTIVEN Lugo PA-C Work Phone: [facility] 04-09-2021 influenza, injectabl e, quadrivalent, preservative free NA Parish RICHMOND Work Phone: [facility] 04-09-2021 influenza virus vaccine, unspecified formulation Khalif Armijo MD Work Phone: [facility] 11-04-2020 tetanus toxoid, redu jeremy diphtheria toxoid, and acellular pertussis vaccine, adsorbed NA Parish R[place]D Work Phone: [facility] Payers Date Payer Category Payer Unknown [employer] PPO OOS [id number] 2022-Present [phone] [address] [place] [address] PPO [id number] 2022 Unknown [id number] Social History Date Type Detail Facility Start: 07-10-2013 End: 02-19-2022 Tobacco smoking status INIS Smokes tobacco daily [facility] History of tobacco use Cigarette Smoker [facility] Work Phone: Start: 07-24-2021 End: 04-26-2023 Alcohol intake Current non-drinker of alcohol (finding) [facility] Start: 1975 Sex Assigned At Not on file [facility] Start: 07-28-2021 End: 04-08-2022 Exposure to SARS-CoV-2 (event) Not sure [facility] Start: 07-10-2013 End: 10-29-2022 Cigarettes smoked current (pack per day) - Reported 0.5 [facility] Work Phone: Start: 07-10-2013 End: 02-19-2022 Tobacco use and exposure Smokeless tobacco non-user [facility] Start: 09-21-2022 End: 10-29-2022 Tobacco use panel [facility] Work Phone: Adult Depression Screening Assessment 3 [facility] Work Phone: Clinical Notes 12-01-2013 to 05-25-2023 Chico Gaming, ILIR.ASSISTANT WRESTLING COACH - 04/26/2023 1:56 PM ESTTelephone Encounter - Sim PssKeyla - 04/19/2023 1:50 PM ESTTelephone Encounter - Sim PssKeyla - 04/19/2023 1:49 PM EST Note Date & Type Note Facility 05-25-2023 Note HNO ID: [id number] Author: ZEYAD CASEY RT(R) Service: Radiology Author Type: Technologist Type: Progress Notes Filed: 05/25/2023 17:55 Note Text: Radiology Service Progress Note PATIENT NAME: Emeli Herrera DATE OF SERVICE: May 25, 2023 TIME: 5:47 PM PATIENT IDENTITY VERIFICATION COMPLETED USING TWO (2) IDENTIFIERS: Name and Date of confirmed by patient verbally. FALL SCREENING: Has the patient had 2 falls in the last year or 1 fall with injury or currently using an Ambulatory Assistive Device (Walker, Cane, Wheelchair, Crutches, etc.)? No PATIENT GENDER DATA: Female. status: : No status: NO. PATIENT RELEVANT IMPLANT DATA REVIEWED: Yes RADIOLOGY DEPARTMENT: General X-ray: Exam(s) Completed: Upper Extremity X-Ray(s): Wrist, right PERIPHERAL IV DATA: Not applicable SIGNED BY: RT Kam(R) May 25, 2023 5:47 PM [facility] 05-25-2023 Note HNO ID: [id number] Author: KHAILF ARMIJO MD Service: ? Author Type: Physician Type: Progress Notes Filed: 05/25/2023 17:57 Note Text: Patient presents with: Follow Up HPI: Patient presents today for office visit for follow up. Not seen since 2021. Seen in [facility] twice since April. Last seen 05/11/23. Dx with Acute otitis media of right ear with perforation. Given Ofloxacin drops and oral cefdinir. Has not scheduled consult with ENT as recommended. Co-pay is too high. States she'll have to wait on this. Still complains of not being able to hear very well out of right ear. Right wrist pain that started this morning. 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 Put on her arthritis glove with some relief. Still unable to lift any type of weight. Sends shooting pain into elbow. Diagnosed with De Quervain's tenosynovitis in 2021 and was referred to ortho. Did not keep appt. This seems similar. It did get better at that time. No injury. No redness warmth. Has swelling. Complains of L hip pain that started two days ago. Pain is positional. Is in lower back. Feels like a catch. Movement makes it worse. Gets pain in her left buttocks at times. No radicular numbness or weakness. Continues on Baclofen TID from muscle spasms. This is not helping. Lung nodule: appears never got her ct that was ordered last year of a lung nodule. A few solid nodules in the bilateral lungs measuring up to [address] in 2021/ Incidental Finding: Follow-up Acuity: Incidental Finding: Solid: <6 mm (solitary or multiple) Routing Code: N/A Recommendation: No imaging follow-up is recommended Time Frame: N/A Comments: If there are risk factors for lung malignancy, a follow-up chest CT exam could be obtained in 12 months MEDICATIONS: Current Outpatient Medications Medication Sig ofloxacin (FLOXIN) 0.3 % otic solution Use 10 Drops in the right ear once daily. benzonatate (TESSALON PERLES) 100 mg capsule Take 2 capsules by mouth three times a day as needed. SUMAtriptan (IMITREX) 100 mg tablet Take 1 tablet (100 mg) by mouth as needed for migraine headache (see administration instructions) (Okay to repeat 2nd dose in 2-3 hours if migraine is still present). baclofen 10 mg tablet Take 1 tablet by mouth three times a day as needed (muscle spasms). ibuprofen (MOTRIN) 800 mg tablet Take 1 tablet by mouth every 8 hours as needed for pain. Take with food. gabapentin (NEURONTIN) 600 mg tablet Take 1 tablet by mouth three times daily for 90 days. gabapentin (NEURONTIN) 400 mg capsule Take 1 capsule by mouth three times daily for 90 days. lamoTRIgine (LAMICTAL) 100 mg tablet Take 1 tablet by mouth once daily. triamcinolone acetonide (KENALOG) 0.1 % cream Apply 1 application to affected area twice daily. albuterol HFA (PROVENTIL HFA, VENTOLIN HFA) 90 mcg/actuation inhaler Inhale 2 Puffs as instructed every 6 hours as needed for Wheezing/Shortness of Breath. No current facility-administered medications for this visit. ALLERGIES: ALLERGIES Allergen Reactions Penicillins Unknown Vicodin [Hydrocodon* GI Upset States that was a reaction with compazine not an allergy. PAST MEDICAL HISTORY Diagnosis Date Bipolar 1 disorder ([facility]) [facility] DVT (deep venous thrombosis) ([facility]) 2006 Marijuana use Migraine with aura PE (pulmonary embolism) 2006 PTSD (post-traumatic stress disorder) sees psych [facility] Schizoaffective disorder ([facility]) [facility] Urinary tract infection, site not specified 2003 PAST SURGICAL HISTORY Procedure Laterality Date DELIVERY ONLY x 3 , low cervical LIG/TRNSXJ FLP TUBE ABDL/VAG APPR UNI/BI 2001 Tubal ligation PAST SURGICAL HISTORY OF Left 2017 IANDD left leg wound TOTAL ABDOMINAL HYSTERECT W/WO RMVL TUBE OVARY -says somethign cancerous or precancerous FAMILY HISTORY Problem Relation Age of Onset Psychiatry Mother Hypertension Father Diabetes Father Emphysema Paternal Grandfather Breast Cancer Maternal Grandmother Cancer Paternal Grandmother lung Thyroid Sister Psychiatry Sister 2 sisters Social History Tobacco Use Smoking status: Every Day Packs/day: 0.50 Years: 14.00 Additional pack years: 0.00 Total pack years: 7.00 Types: Cigarettes Smokeless tobacco: Never Substance Use Topics Alcohol use: No Drug use: Not Currently Types: Marijuana Comment: occasional marijuana Reviewed current medications, allergies, past medical history, surgical history, family history and social history today. REVIEW OF SYSTEMS No chest pain or shortness of breath. All other reviewed and negative other than HPI. VITALS: BP 154/96 Pulse 89 Ht 172.7 cm (5' 8 ) Wt 94.8 kg (209 lb) LMP 10/13/2006 SpO2 97% BMI 31.78 kg/m? Last 4 Encounter Wt Readings: D (more content not included)... [facility] 05-11-2023 Note HNO ID: [id number] Author: Brittney Lora PA-C Service: ? Author Type: Physician Commercial Account Executive Type: Progress Notes Filed: 05/11/2023 7:43 AM Note Text: This note was created using shipbeatriter. Subjective Emeli Herrera is a 47 year old female. HPI Patient presents with a chief complaint of right ear pain and drainage. She was seen 2 weeks ago and prescribed doxycycline and ofloxacin for an otitis externa. The TM was not visualized at that time due to the debris in the ear canal. She states it never really improved. She is out of the drops. She had a history of a severe infection last year and states she lost her hearing for several weeks after that. This morning she noted blood and liquid coming out of the ear and felt like the eardrum had burst. She states she is also had cough and congestion for about 3 weeks. She did finish the doxycycline as prescribed. No shortness of breath or chest pain. She did have pneumonia in July and this does not feel similar. No fever. Review of Systems Constitutional: Negative. HENT: Positive for congestion, ear discharge, ear pain and rhinorrhea. Negative for postnasal drip and sore throat. Respiratory: Positive for cough. Negative for chest tightness, shortness of breath and wheezing. Cardiovascular: Negative. Gastrointestinal: Negative. Genitourinary: Negative. Musculoskeletal: Negative. All other systems reviewed and are negative. PAST MEDICAL HISTORY Diagnosis Date Bipolar 1 disorder ([facility]) sees psych at [facility] DVT (deep venous thrombosis) ([facility]) 2006 Marijuana use Migraine with aura PE (pulmonary embolism) 2006 PTSD (post-traumatic stress disorder) sees psych at [facility] Schizoaffective disorder ([facility]) sees psych at [facility] Urinary tract infection, site not specified 2003 Current Outpatient Medications Medication Sig Dispense Refill SUMAtriptan (IMITREX) 100 mg tablet Take 1 tablet (100 mg) by mouth as needed for migraine headache (see administration instructions) (Okay to repeat 2nd dose in 2-3 hours if migraine is still present). 12 tablet 2 baclofen 10 mg tablet Take 1 tablet by mouth three times a day as needed (muscle spasms). 90 tablet 2 ibuprofen (MOTRIN) 800 mg tablet Take 1 tablet by mouth every 8 hours as needed for pain. Take with food. 30 tablet 0 lamoTRIgine (LAMICTAL) 100 mg tablet Take 1 tablet by mouth once daily. 90 tablet 1 triamcinolone acetonide (KENALOG) 0.1 % cream Apply 1 application to affected area twice daily. 60 g 1 albuterol HFA (PROVENTIL HFA, VENTOLIN HFA) 90 mcg/actuation inhaler Inhale 2 Puffs as instructed every 6 hours as needed for Wheezing/Shortness of Breath. 1 Inhaler 0 cefdinir (OMNICEF) 300 mg capsule Take 1 capsule by mouth two times a day for 10 days. 20 capsule 0 ofloxacin (FLOXIN) 0.3 % otic solution Use 10 Drops in the right ear once daily. 5 mL 0 benzonatate (TESSALON PERLES) 100 mg capsule Take 2 capsules by mouth three times a day as needed. 30 capsule 0 gabapentin (NEURONTIN) 600 mg tablet Take 1 tablet by mouth three times daily for 90 days. 90 tablet 5 gabapentin (NEURONTIN) 400 mg capsule Take 1 capsule by mouth three times daily for 90 days. 90 capsule 0 No current facility-administered medications for this visit. PAST SURGICAL HISTORY Procedure Laterality Date DELIVERY ONLY x 3 , low cervical LIG/TRNSXJ FLP TUBE ABDL/VAG APPR UNI/BI 2002 Tubal ligation PAST SURGICAL HISTORY OF Left 2017 IANDD left leg wound TOTAL ABDOMINAL HYSTERECT W/WO RMVL TUBE OVARY -says somethign cancerous or precancerous FAMILY HISTORY Problem Relation Age of Onset Psychiatry Mother Hypertension Father Diabetes Father Emphysema Paternal Grandfather Breast Cancer Maternal Grandmother Cancer Paternal Grandmother lung Thyroid Sister Psychiatry Sister 2 sisters Social History Tobacco Use Smoking status: Every Day Packs/day: 0.50 Years: 14.00 Additional pack years: 0.00 Total pack years: 7.00 Types: Cigarettes Smokeless tobacco: Never Substance Use Topics Alcohol use: No Drug use: Not Currently Types: Marijuana Comment: occasional marijuana Objective BP 122/82 Pulse 72 Temp 36.3 ?C (97.3 ?F) (Tympanic) Resp 16 Wt 95.9 kg (211 lb 6.4 oz) LMP 10/13/2006 SpO2 100% BMI 32.14 kg/m? Physical Exam Vitals reviewed. Constitutional: Appearance: Normal appearance. HENT: Head: Normocephalic and atraumatic. Ears: Comments: Patient has purulent bloody discharge coming from the TM with perforation on the ear. Left ear unremarkable. Nose: Congestion present. Mouth/Throat: Mouth: Mucous membranes are moist. Pharynx: Oropharynx is clear. Cardiovascular: Rate and Rhythm: Normal rate and regular rhythm. Heart sounds: Normal heart sounds. Pulmonary: Effort: Pulmonary effort is normal. Breath sounds: Normal breath sounds. Musculoskeletal: Cervical back (more content not included)... [facility] 04[facility]26-2023 Note HNO ID: [id number] Author: Chico Gaming APRN.ASSISTANT WRESTLING COACH Service: ? Author Type: Nurse Practitioner Type: Progress Notes Filed: 04/26/2023 2:14 PM Note Text: Subjective HPI Nontoxic-appearing female presents urgent care chief complaint flulike symptoms. Duration of symptoms flulike symptoms 5 days. Associated symptoms nausea vomiting diarrhea body aches chills fever cough fatigue. States those symptoms have almost fully resolved. Was afebrile today. States a colleague at work tested positive for flu and another colleague tested positive for COVID-19. She was in close contact with them. Presents today due to worsening sinus pressure and right ear discomfort. Has not used any OTC medications recently. No loss of hearing. Hearing is muffled. No ear trauma. Denies any fever body aches chills today. No productive cough chest pain shortness of breath or pleuritic pain. No hemoptysis. Denies chance of . Is not breast-feeding. Past medical history prescription medications allergies reviewed. .Patient presents with: Nausea AND Vomiting: NVD, head and chest congestion x5 days, R ear muffled hearing PAST MEDICAL HISTORY Diagnosis Date Bipolar 1 disorder ([facility]) [facility] DVT (deep venous thrombosis) ([facility]) 2006 Marijuana use Migraine with aura PE (pulmonary embolism) 2006 PTSD (post-traumatic stress disorder) sees psych [facility] Schizoaffective disorder ([facility]) sees psych at [facility] Urinary tract infection, site not specified 2003 PAST SURGICAL HISTORY Procedure Laterality Date DELIVERY ONLY x 3 , low cervical LIG/TRNSXJ FLP TUBE ABDL/VAG APPR UNI/BI 2001 Tubal ligation PAST SURGICAL HISTORY OF Left 2017 IANDD left leg wound TOTAL ABDOMINAL HYSTERECT W/WO RMVL TUBE OVARY -says somethign cancerous or precancerous ALLERGIES Penicillins and Vicodin [Hydrocodone-Acetaminophen] MEDICATIONS SUMAtriptan (IMITREX) 100 mg tablet Take 1 tablet (100 mg) by mouth as needed for migraine headache (see administration instructions) (Okay to repeat 2nd dose in 2-3 hours if migraine is still present). baclofen 10 mg tablet Take 1 tablet by mouth three times a day as needed (muscle spasms). ibuprofen (MOTRIN) 800 mg tablet Take 1 tablet by mouth every 8 hours as needed for pain. Take with food. triamcinolone acetonide (KENALOG) 0.1 % cream Apply 1 application to affected area twice daily. albuterol HFA (PROVENTIL HFA, VENTOLIN HFA) 90 mcg/actuation inhaler Inhale 2 Puffs as instructed every 6 hours as needed for Wheezing/Shortness of Breath. gabapentin (NEURONTIN) 600 mg tablet Take 1 tablet by mouth three times daily for 90 days. gabapentin (NEURONTIN) 400 mg capsule Take 1 capsule by mouth three times daily for 90 days. lamoTRIgine (LAMICTAL) 100 mg tablet Take 1 tablet by mouth once daily. FAMILY HISTORY Problem Relation Age of Onset Psychiatry Mother Hypertension Father Diabetes Father Emphysema Paternal Grandfather Breast Cancer Maternal Grandmother Cancer Paternal Grandmother lung Thyroid Sister Psychiatry Sister 2 sisters Social History Tobacco Use Smoking status: Every Day Packs/day: 0.50 Years: 14.00 Additional pack years: 0.00 Total pack years: 7.00 Types: Cigarettes Smokeless tobacco: Never Substance Use Topics Alcohol use: No Drug use: Not Currently Types: Marijuana Comment: occasional marijuana BP 142/90 Pulse 88 Temp 36.6 ?C (97.9 ?F) Resp 18 Wt 94.6 kg (208 lb 9.6 oz) LMP 10/13/2006 SpO2 98% BMI 31.72 kg/m? Review of Systems Constitutional: Negative for chills, fever and malaise/fatigue. HENT: Positive for congestion, ear pain and sinus pain. Negative for ear discharge, hearing loss, sore throat and tinnitus. Eyes: Negative for blurred vision, pain, discharge and redness. Respiratory: Negative for cough, hemoptysis, sputum production, shortness of breath, wheezing and stridor. Cardiovascular: Negative for chest pain. Gastrointestinal: Negative for abdominal pain, diarrhea, nausea and vomiting. Musculoskeletal: Negative for myalgias. Skin: Negative for itching and rash. Neurological: Negative for dizziness and headaches. Objective Physical Exam Constitutional: General: She is not in acute distress. Appearance: She is not diaphoretic. HENT: Head: Normocephalic. Jaw: No trismus, tenderness, swelling or pain on movement. Right Ear: Drainage, swelling and tenderness present. No mastoid tenderness. Left Ear: Tympanic membrane, ear canal and external ear normal. No mastoid tenderness. Nose: Congestion present. Right Sinus: Maxillary sinus tenderness present. Left Sinus: Maxillary sinus tenderness present. Mouth/Throat: Mouth: Mucous membranes are moist. Pharynx: Oropharynx is clear. Uvula midline. No pharyngeal swelling, oropharyngeal exudate, posterior oropharyngeal erythema or uvula swelling. Eyes: (more content not included)... [facility] 04-26-2023 History of Presen t illness Narrative Subjective HPI Nontoxic-appearing female presents urgent care chief complaint flulike symptoms. Duration of symptoms flulike symptoms 5 days. Associated symptoms nausea vomiting diarrhea body aches chills fever cough fatigue. States those symptoms have almost fully resolved. Was afebrile today. States a colleague at work tested positive for flu and another colleague tested positive for COVID-19. She was in close contact with them. Presents today due to worsening sinus pressure and right ear discomfort. Has not used any OTC medications recently. No loss of hearing. Hearing is muffled. No ear trauma. Denies any fever body aches chills today. No productive cough chest pain shortness of breath or pleuritic pain. No hemoptysis. Denies chance of . Is not breast-feeding. Past medical history prescription medications allergies reviewed. .Patient presents with: Nausea & Vomiting: NVD, head and chest congestion x5 days, R ear muffled hearing PAST MEDICAL HISTORY Diagnosis Date Bipolar 1 disorder ([facility]) [facility] DVT (deep venous thrombosis) ([facility]) 2006 Marijuana use Migraine with aura PE (pulmonary embolism) 2006 PTSD (post-traumatic stress disorder) [facility] Schizoaffective disorder ([facility]) sees psych at [facility] Urinary tract infection, site not specified 2003 PAST SURGICAL HISTORY Procedure Laterality Date DELIVERY ONLY x 3 , low cervical LIG/TRNSXJ FLP TUBE ABDL/VAG APPR UNI/BI 2001 Tubal ligation PAST SURGICAL HISTORY OF Left 2017 I&D left leg wound TOTAL ABDOMINAL HYSTERECT W/WO RMVL TUBE OVARY -says somethign cancerous or precancerous ALLERGIES Penicillins and Vicodin [Hydrocodone-Acetaminophen] MEDICATIONS SUMAtriptan (IMITREX) 100 mg tablet Take 1 tablet (100 mg) by mouth as needed for migraine headache (see administration instructions) (Okay to repeat 2nd dose in 2-3 hours if migraine is still present). baclofen 10 mg tablet Take 1 tablet by mouth three times a day as needed (muscle spasms). ibuprofen (MOTRIN) 800 mg tablet Take 1 tablet by mouth every 8 hours as needed for pain. Take with food. triamcinolone acetonide (KENALOG) 0.1 % cream Apply 1 application to affected area twice daily. albuterol HFA (PROVENTIL HFA, VENTOLIN HFA) 90 mcg/actuation inhaler Inhale 2 Puffs as instructed every 6 hours as needed for Wheezing/Shortness of Breath. gabapentin (NEURONTIN) 600 mg tablet Take 1 tablet by mouth three times daily for 90 days. gabapentin (NEURONTIN) 400 mg capsule Take 1 capsule by mouth three times daily for 90 days. lamoTRIgine (LAMICTAL) 100 mg tablet Take 1 tablet by mouth once daily. FAMILY HISTORY Problem Relation Age of Onset Psychiatry Mother Hypertension Father Diabetes Father Emphysema Paternal Grandfather Breast Cancer Maternal Grandmother Cancer Paternal Grandmother lung Thyroid Sister Psychiatry Sister 2 sisters Social History Tobacco Use Smoking status: Every Day Packs/day: 0.50 Years: 14.00 Additional pack years: 0.00 Total pack years: 7.00 Types: Cigarettes Smokeless tobacco: Never Substance Use Topics Alcohol use: No Drug use: Not Currently Types: Marijuana Comment: occasional marijuana BP 142/90 Pulse 88 Temp 36.6 C (97.9 F) Resp 18 Wt 94.6 kg (208 lb 9.6 oz) LMP 10/13/2006 SpO2 98% BMI 31.72 kg/m Review of Systems Constitutional: Negative for chills, fever and malaise/fatigue. HENT: Positive for congestion, ear pain and sinus pain. Negative for ear discharge, hearing loss, sore throat and tinnitus. Eyes: Negative for blurred vision, pain, discharge and redness. Respiratory: Negative for cough, hemoptysis, sputum production, shortness of breath, wheezing and stridor. Cardiovascular: Negative for chest pain. Gastrointestinal: Negative for abdominal pain, diarrhea, nausea and vomiting. Musculoskeletal: Negative for myalgias. Skin: Negative for itching and rash. Neurological: Negative for dizziness and headaches. Objective Physical Exam Constitutional: General: She is not in acute distress. Appearance: She is not diaphoretic. HENT: Head: Normocephalic. Jaw: No trismus, tenderness, swelling or pain on movement. Right Ear: Drainage, swelling and tenderness present. No mastoid tenderness. Left Ear: Tympanic membrane, ear canal and external ear normal. No mastoid tenderness. Nose: Congestion present. Right Sinus: Maxillary sinus tenderness present. Left Sinus: Maxillary sinus tenderness present. Mouth/Throat: Mouth: Mucous membranes are moist. Pharynx: Oropharynx is clear. Uvula midline. No pharyngeal swelling, oropharyngeal exudate, posterior oropharyngeal erythema or uvula swelling. Eyes: Conjunctiva/sclera: Conjunctivae normal. Pupils: Pupils are equal, round, and reactive to light. Cardiovascular: Rate and Rhythm: Normal rate and regular rhythm. Heart sounds: Normal heart sounds. Pulmonary: Effort: Pulmonary effort is normal. No tachypnea, accessory muscle usage or respiratory distress. Breath sounds: Normal breath sounds. No stridor. No wheezing, rhonchi or rales. Abdominal: General: There is no distension. Palpations: Abdomen is soft. Tenderness: There is no abdominal tenderness. There is no guarding or rebound. Musculoskeletal: Cervical back: Normal range of motion and neck supple. No edema, erythema, rigidity or tenderness. No pain with movement. Normal range of motion. Lymphadenopathy: Cervical: No cervical adenopathy. Skin: General: Skin is warm and dry. Neurological: Mental Status: She is alert and oriented to person, place, and time. ASSESSMENT/PLAN: 1. Acute otitis externa of right ear, unspecified type - ICD9: 380.10, ICD10: H60.501 Diagnosed with otitis externa right ear. Unable to visualize TM due to otorrhea. Placed on ofloxacin otic drops as well as doxycycline due to penicillin allergy. Patient was educated on supportive therapies. Patient will follow up with primary care provider 5 to 7 days reevaluation. Sooner if symptoms are not improving. Patient was instructed to immediately proceed to emergency room for any new, worsening, or symptoms lasting longer than anticipated. The patient's clinical presentation is otherwise unremarkable at this time. Based on exam and clinical finding, the patient is stable for discharge. Plan of care was discussed with patient. Patient verbalizes understanding and agrees to plan of care. This note was generated using PAAY software. It may contain errors in wording, punctuation, or spelling. Chico Gaming APRN.ASSISTANT WRESTLING COACH documented in this encounter [facility] 04-19-2023 Miscellaneous Notes Pharmacy verified in [facility] [place] in [place] Patient has been identified by name and date of : Yes Patient aware RX will be sent to pharmacy. No need to notify patient. Patient phones for refill(s): Disp Refills Start End baclofen 10 mg tablet 90 tablet 2 12/07/2022 03/07/2023 Sig: Take 1 tablet by mouth three times daily as needed (muscle spasms). Sent to pharmacy as: baclofen 10 mg tablet Class: Normal Route: ORAL Order: [id number] Date of last office visit : 04/22/2022 Date of next office visit : Visit date not found Last 2 Encounter Wt Readings: Date: Wt: 01/06/2023 95.4 kg (210 lb 6.4 oz) 09/21/2022 93.4 kg (206 lb) Not applicable Please advise. Keyla Casey Pss documented in this encounter [facility] 04-19-2023 Miscellaneous Notes Pharmacy verified in [facility] Patient has been identified by name and date of : Yes Patient aware RX will be sent to pharmacy. No need to notify patient. Patient phones for refill(s): Requested Prescriptions Pending Prescriptions Disp Refills SUMAtriptan (IMITREX) 100 mg tablet 12 tablet 2 Sig: Take 1 tablet (100 mg) by mouth as needed for migraine headache (see administration instructions) (Okay to repeat 2nd dose in 2-3 hours if migraine is still present). Date of last office visit : 04/22/2022 Date of next office visit : Visit date not found Last 2 Encounter Wt Readings: Date: Wt: 01/06/2023 95.4 kg (210 lb 6.4 oz) 09/21/2022 93.4 kg (206 lb) Not applicable Please advise. Keyla Casey Pss documented in this encounter [facility] 02-12-2023 Miscellaneous Notes Patient last visit 04/22/22 Follow up appointment scheduled none Brigitte Oneil Ma Patient has been identified by name and date of : Yes Requested Prescriptions Pending Prescriptions Disp Refills SUMAtriptan (IMITREX) 100 mg tablet 12 tablet 2 Sig: Take 1 tablet (100 mg) by mouth as needed for migraine headache (see administration instructions) (Okay to repeat 2nd dose in 2-3 hours if migraine is still present). RX INSTRUCTIONS: Patient aware RX will be sent to pharmacy. No need to notify patient. Debbie Melo documented in this encounter [facility] 02-01-2023 Miscellaneous Notes Patient calls to report SOB and request nebulizer treatment. Nurse triage completed. Protocol recommends ED now. Patient verbalizes understanding and will go to ED. Care advice reviewed. Patient verbalizes understanding. Reason for Disposition [1] MODERATE difficulty breathing (e.g., speaks in phrases, SOB even at rest, pulse 100-120) AND [2] NEW-onset or WORSE than normal Answer Assessment - Initial Assessment Questions 1. RESPIRATORY STATUS: Moderate Shortness of breath. Patient has used her rescue inhaler more times than ordered. She used to have nebulizer unit but no longer on hand. Patient Able to speak but panicky but can't take a deep breath in. No wheezing. No cough. 2. ONSET: This morning. 3. PATTERN: A hour and a half. 4. SEVERITY: - MODERATE: SOB at rest, SOB with minimal exertion and prefers to sit, cannot lie down flat, speaks in phrases, mild retractions, audible wheezing, pulse 100-120. 5. RECURRENT SYMPTOM: Had this trouble before but many years ago. Needs a nebulizer treatment. 6. CARDIAC HISTORY: No history of heart attack, angina, bypass surgery, or angioplasty. 7. LUNG HISTORY: No history of PE, asthma, or emphysema. 8. CAUSE: Patient reports has had the problem before but not specific of cause other than she is a smoker. 9. OTHER SYMPTOMS: No cough, chest pain, dizziness, or fever. 10. O2 SATURATION MONITOR: No Protocols used: Breathing [id number] documented in this encounter [facility] 01-07-2023 Miscellaneous Notes Patient notified.Lizabeth Cervantes LPN ----- Message from Callie Ordonez APRN.ASSISTANT WRESTLING COACH sent at 01/07/2023 7:12 AM EDT ----- Please advise patient the COVID and flu test was negative. documented in this encounter [facility] 01-06-2023 Note HNO ID: [id number] Author: Cole Frazier MD Service: ? Author Type: Physician Type: Progress Notes Filed: 01/06/2023 4:13 PM Note Text: Patient presents with: Cough: Cough, congestion, bodyaches, SOB and fatigue x 2 days HPI: Feeling sick for 3 days. Positive symptoms: Cough, Shortness of breath, Chest tightness, Body Aches, Malaise, Fatigue, sharp right ear pains,Rhinorrhea, Fever, Chills, Diarrhea, scratchy throat Negative symptoms: Nausea, Vomiting, Chest pain, OTC: Ibuprofen, Tylenol, inhaler PAST MEDICAL HISTORY Diagnosis Date Bipolar 1 disorder ([facility]) sees psych at [facility] DVT (deep venous thrombosis) ([facility]) 2007 Marijuana use Migraine with aura PE (pulmonary embolism) 2006 PTSD (post-traumatic stress disorder) sees psych at [facility] Schizoaffective disorder ([facility]) sees psych at [facility] Urinary tract infection, site not specified 2003 MEDICATIONS: Current Outpatient Medications Medication Sig SUMAtriptan (IMITREX) 100 mg tablet Take 1 tablet by mouth as needed for migraine headache (see administration instructions) (Okay to repeat 2nd dose in 2-3 hours if migraine is still present). baclofen 10 mg tablet Take 1 tablet by mouth three times daily as needed (muscle spasms). ibuprofen (MOTRIN) 800 mg tablet Take 1 tablet by mouth every 8 hours as needed for pain. Take with food. gabapentin (NEURONTIN) 600 mg tablet Take 1 tablet by mouth three times daily for 90 days. gabapentin (NEURONTIN) 400 mg capsule Take 1 capsule by mouth three times daily for 90 days. lamoTRIgine (LAMICTAL) 100 mg tablet Take 1 tablet by mouth once daily. triamcinolone acetonide (KENALOG) 0.1 % cream Apply 1 application to affected area twice daily. albuterol HFA (PROVENTIL HFA, VENTOLIN HFA) 90 mcg/actuation inhaler Inhale 2 Puffs as instructed every 6 hours as needed for Wheezing/Shortness of Breath. No current facility-administered medications for this visit. ALLERGIES: ALLERGIES Allergen Reactions Penicillins Unknown Vicodin [Hydrocodon* GI Upset States that was a reaction with compazine not an allergy. Vidaylin Vitamins [* GI Upset VITALS: BP 122/80 Pulse 86 Temp 36.9 ?C (98.5 ?F) (Tympanic) Resp 18 Wt 95.4 kg (210 lb 6.4 oz) LMP 10/13/2006 SpO2 100% BMI 31.99 kg/m? PHYSICAL EXAM: GEN: mildly ill appearing HEENT: PERRL, EOMI, conjunctiva clear Neck: supple, no thyromegaly, no lymphadenopathy HEART: regular rate and rhythm, no murmurs LUNGS: clear to auscultation after solitary initial deep breath wheeze, no crackles, no increased WOB ASSESSMENT/PLAN: 1. Acute cough - ICD9: 786.2, ICD10: R05.1 (primary diagnosis) 2. Influenza-like illness - ICD9: 487.1, ICD10: J11.1 - suspect viral URI, differential includes COVID-19. - Discussed supportive care treatment with home isolation, rest, cold medicine, and analgesia. - Red flags to seek further treatment include chest pain, shortness of breath, and lethargy; in the ER if severe. - COVID AND INFLUENZA A/B NAAT, ROUTINE - encouraged virtual visit with primary care or [facility] to review antiviral treatment if positive. Cole Frazier MD [facility] 01-06-2023 History of Presen t illness Narrative Patient presents with: Cough: Cough, congestion, bodyaches, SOB and fatigue x 2 days HPI: Feeling sick for 3 days. Positive symptoms: Cough, Shortness of breath, Chest tightness, Body Aches, Malaise, Fatigue, sharp right ear pains,Rhinorrhea, Fever, Chills, Diarrhea, scratchy throat Negative symptoms: Nausea, Vomiting, Chest pain, OTC: Ibuprofen, Tylenol, inhaler PAST MEDICAL HISTORY Diagnosis Date Bipolar 1 disorder ([facility]) sees psych at [facility] DVT (deep venous thrombosis) ([facility]) 2006 Marijuana use Migraine with aura PE (pulmonary embolism) 2006 PTSD (post-traumatic stress disorder) sees psych at [facility] Schizoaffective disorder ([facility]) sees psych at [facility] Urinary tract infection, site not specified 2003 MEDICATIONS: Current Outpatient Medications Medication Sig SUMAtriptan (IMITREX) 100 mg tablet Take 1 tablet by mouth as needed for migraine headache (see administration instructions) (Okay to repeat 2nd dose in 2-3 hours if migraine is still present). baclofen 10 mg tablet Take 1 tablet by mouth three times daily as needed (muscle spasms). ibuprofen (MOTRIN) 800 mg tablet Take 1 tablet by mouth every 8 hours as needed for pain. Take with food. gabapentin (NEURONTIN) 600 mg tablet Take 1 tablet by mouth three times daily for 90 days. gabapentin (NEURONTIN) 400 mg capsule Take 1 capsule by mouth three times daily for 90 days. lamoTRIgine (LAMICTAL) 100 mg tablet Take 1 tablet by mouth once daily. triamcinolone acetonide (KENALOG) 0.1 % cream Apply 1 application to affected area twice daily. albuterol HFA (PROVENTIL HFA, VENTOLIN HFA) 90 mcg/actuation inhaler Inhale 2 Puffs as instructed every 6 hours as needed for Wheezing/Shortness of Breath. No current facility-administered medications for this visit. ALLERGIES: ALLERGIES Allergen Reactions Penicillins Unknown Vicodin [Hydrocodon* GI Upset States that was a reaction with compazine not an allergy. Vidaylin Vitamins [* GI Upset VITALS: BP 122/80 Pulse 86 Temp 36.9 C (98.5 F) (Tympanic) Resp 18 Wt 95.4 kg (210 lb 6.4 oz) LMP 10/13/2006 SpO2 100% BMI 31.99 kg/m PHYSICAL EXAM: GEN: mildly ill appearing HEENT: PERRL, EOMI, conjunctiva clear Neck: supple, no thyromegaly, no lymphadenopathy HEART: regular rate and rhythm, no murmurs LUNGS: clear to auscultation after solitary initial deep breath wheeze, no crackles, no increased WOB ASSESSMENT/PLAN: 1. Acute cough - ICD9: 786.2, ICD10: R05.1 (primary diagnosis) 2. Influenza-like illness - ICD9: 487.1, ICD10: J11.1 - suspect viral URI, differential includes COVID-19. - Discussed supportive care treatment with home isolation, rest, cold medicine, and analgesia. - Red flags to seek further treatment include chest pain, shortness of breath, and lethargy; in the ER if severe. - COVID & INFLUENZA A/B NAAT, ROUTINE - encouraged virtual visit with primary care or [facility] Care Online to review antiviral treatment if positive. Cole Frazier MD documented in this encounter [facility] 12-07-2022 Miscellaneous Notes Last office visit: 04/22/22 F/u scheduled: none, no showed 10/29/22 Vania Mendez Ma Patient has been identified by name and date of : Yes Requested Prescriptions Pending Prescriptions Disp Refills SUMAtriptan (IMITREX) 100 mg tablet 12 tablet 2 Sig: Take 1 tablet by mouth as needed for migraine headache (see administration instructions) (Okay to repeat 2nd dose in 2-3 hours if migraine is still present). RX INSTRUCTIONS: Patient aware RX will be sent to pharmacy. No need to notify patient. Kelli Man documented in this encounter [facility] 12-07-2022 Miscellaneous Notes Last office visit: 04/22/22 F/u scheduled: none, no showed 10/29/22 Vania Mendez Ma Emeli Herrera is calling Khalif Armijo MD today requesting a refill on an medication. baclofen (LIORESAL) 10 mg tablet Please send to [facility] documented in this encounter [facility] 09-21-2022 Miscellaneous Notes Patient has been identified by name and date of : Yes Requested Prescriptions Pending Prescriptions Disp Refills gabapentin (NEURONTIN) 600 mg tablet 90 tablet 5 Sig: Take 1 tablet by mouth three times daily for 90 days. SUMAtriptan (IMITREX) 100 mg tablet 12 tablet 2 Sig: Take 1 tablet by mouth as needed for migraine headache (see administration instructions) (Okay to repeat 2nd dose in 2-3 hours if migraine is still present). Gabapentin requested in August, but wrong dosage requested. RX INSTRUCTIONS: Patient aware RX will be sent to pharmacy. No need to notify patient. Diane Brown documented in this encounter [facility] 09-21-2022 Note HNO ID: [id number] Author: RT Alivia(R) Service: ? Author Type: Floor Hand Type: Progress Notes Filed: 09/21/2022 9:51 AM Note Text: Radiology Service Progress Note PATIENT NAME: Emeli Herrera DATE OF SERVICE: September 21, 2022 TIME: 9:43 AM PATIENT IDENTITY VERIFICATION COMPLETED USING TWO (2) IDENTIFIERS: Name and Date of confirmed by patient verbally. FALL SCREENING: Has the patient had 2 falls in the last year or 1 fall with injury or currently using an Ambulatory Assistive Device (Walker, Cane, Wheelchair, Crutches, etc.)? No PATIENT GENDER DATA: Female. status: : No status: NO. PATIENT RELEVANT IMPLANT DATA REVIEWED: Yes RADIOLOGY DEPARTMENT: General X-ray: Exam(s) Completed: Lower Extremity X-Ray(s): Foot, Right PERIPHERAL IV DATA: Not applicable SIGNED BY: RT Alivia(R) September 21, 2022 9:43 AM [facility] 09-21-2022 Note HNO ID: [id number] Author: Ranjeet Del Rio APRN.ASSISTANT WRESTLING COACH Service: ? Author Type: Nurse Practitioner Type: Progress Notes Filed: 09/21/2022 12:58 PM Note Text: This note was created using [employer]. Subjective Emeli Herrera is a 47 year old female. 47 year old female with PMH DDD, bipolar, PTSD, migraines presents with complaints of foot injury. Acute onset Wednesday Right foot pain States that she stubbed her right little toe into the vacuum. At the same time she dropped her cell phone onto foot. Locates pain in right little toe and has pain and bruising to top of foot Has been weight bearing. Denies head trauma or injury. Denies LOC Denies neck or back pain Denies skin rash or lesions. 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 No humanities and languages professor was used. Pain (foot) Pain location: RIGHT FOOT. This is a new problem. The current episode started in the past 7 days. There has been a history of trauma. The problem occurs constantly. The problem has been unchanged. The quality of the pain is described as aching and sharp. The pain is at a severity of 7/10. The pain is moderate. Associated symptoms include a limited range of motion, stiffness and tingling (@ time of injury). Pertinent negatives include no fever, inability to bear weight, itching, joint locking, joint swelling or numbness. The symptoms are aggravated by activity and standing (touching). Treatments tried: old post op shoe, and Ibuprofen. The treatment provided no relief. Family history does not include gout or rheumatoid arthritis. There is no history of diabetes, gout, osteoarthritis or rheumatoid arthritis. PAST MEDICAL HISTORY Diagnosis Date Bipolar 1 disorder ([facility]) sees psych at [facility] DVT (deep venous thrombosis) ([facility]) 2006 Marijuana use Migraine with aura PE (pulmonary embolism) 2006 PTSD (post-traumatic stress disorder) [facility] Schizoaffective disorder ([facility]) sees psych at [facility] Urinary tract infection, site not specified 2003 PAST SURGICAL HISTORY Procedure Laterality Date DELIVERY ONLY x 3 , low cervical LIG/TRNSXJ FLP TUBE ABDL/VAG APPR UNI/BI 2001 Tubal ligation PAST SURGICAL HISTORY OF Left 2017 IANDD left leg wound TOTAL ABDOMINAL HYSTERECT W/WO RMVL TUBE OVARY -says somethign cancerous or precancerous ALLERGIES Penicillins, Vicodin [Hydrocodone-Acetaminophen], and Vidaylin Vitamins [Other] MEDICATIONS gabapentin (NEURONTIN) 400 mg capsule Take 1 capsule by mouth three times daily for 90 days. SUMAtriptan (IMITREX) 100 mg tablet Take 1 tablet by mouth as needed for migraine headache (see administration instructions) (Okay to repeat 2nd dose in 2-3 hours if migraine is still present). baclofen (LIORESAL) 10 mg tablet Take 1 tablet by mouth three times daily as needed (muscle spasms). gabapentin (NEURONTIN) 600 mg tablet Take 1 tablet by mouth three times daily for 90 days. lamoTRIgine (LAMICTAL) 100 mg tablet Take 1 tablet by mouth once daily. triamcinolone acetonide (KENALOG) 0.1 % cream Apply 1 application to affected area twice daily. albuterol HFA (PROVENTIL HFA, VENTOLIN HFA) 90 mcg/actuation inhaler Inhale 2 Puffs as instructed every 6 hours as needed for Wheezing/Shortness of Breath. ibuprofen (MOTRIN) 800 mg tablet Take 1 tablet by mouth every 8 hours as needed for pain. Take with food. FAMILY HISTORY Problem Relation Age of Onset Psychiatry Mother Hypertension Father Diabetes Father Emphysema Paternal Grandfather Breast Cancer Maternal Grandmother Cancer Paternal Grandmother lung Thyroid Sister Psychiatry Sister 2 sisters Social History Tobacco Use Smoking status: Every Day Packs/day: 0.50 Years: 14.00 Pack years: 7.00 Types: Cigarettes Smokeless tobacco: Never Substance Use Topics Alcohol use: No Drug use: Not Currently Types: Marijuana Comment: occasional marijuana Review of Systems Constitutional: Negative for activity change, appetite change, chills and fever. Eyes: Negative for pain, discharge and itching. Respiratory: Negative for apnea, cough, choking, chest tightness and shortness of breath. Cardiovascular: Negative for chest pain, palpitations and leg swelling. Gastrointestinal: Negative for abdominal pain, diarrhea, nausea and vomiting. Musculoskeletal: Positive for stiffness. Negative for arthralgias, back pain and gout. Right foot and right little toe Skin: Negative for color change, itching, pallor, rash and wound. Allergic/Immunologic: Negative for environmental allergies, food allergies and immunocompromised state. Neurological: Positive for tingling (@ time of injury). Negative for numbness. Hematological: Negative for adenopathy. Does not bruise/bleed easily. Psychiatric/Behavioral: Negative for agitation and behavioral problems. Objective BP 122/74 Pulse 82 T (more content not included)... [facility] 09-09-2022 Note Patient Outreach (IN [facility]) EMELI HERRERA ([id number]) 1975 F Date Time Provider Department 09/09/22 KHALIF ARMIJO During your visit today, we recorded the following information about you: Allergies As of Date: 09/09/2022 Noted Allergy Reaction PENICILLINS 04/14/2006 16 - Unknown VICODIN (HYDROCODONE-ACETAMINOPHE*2006 8 - GI Upset Comments: States that was a reaction with compazine not an allergy. vidaylin vitamins [Other] 04/16/2006 8 - GI Upset Date Reviewed: 04/22/2022 Reviewed by: Corey Card LPN - Fully Assessed Visit Diagnosis:Encounter for screening mammogram for breast cancer [Z12.31] Order(s):[facility]CRE[facility] [[id number]] Order #: [id number] FUTURE Prescriptions as of 09/14/2022 - gabapentin (NEURONTIN) 400 mg capsule Take 1 capsule by mouth three times daily for 90 days. - SUMAtriptan (IMITREX) 100 mg tablet Take 1 tablet by mouth as needed for migraine headache (see administration instructions) (Okay to repeat 2nd dose in 2-3 hours if migraine is still present). - baclofen (LIORESAL) 10 mg tablet Take 1 tablet by mouth three times daily as needed (muscle spasms). - gabapentin (NEURONTIN) 600 mg tablet Take 1 tablet by mouth three times daily for 90 days. - lamoTRIgine (LAMICTAL) 100 mg tablet Take 1 tablet by mouth once daily. - triamcinolone acetonide (KENALOG) 0.1 % cream Apply 1 application to affected area twice daily. - albuterol HFA (PROVENTIL HFA, VENTOLIN HFA) 90 mcg/actuation inhaler Inhale 2 Puffs as instructed every 6 hours as needed for Wheezing/Shortness of Breath. Problem List As Of Date 09/09/2022 Noted Resolved Migraine without aura [G43.009] 08/27/2006 ABNORMAL FINDINGS NEC [R68.89] 11/16/2006 11/16/2006 Bipolar 1 disorder (HCC) [F31.9] PTSD (post-traumatic stress disorder) [F43.10] Schizoaffective disorder (HCC) [F25.9] Lumbago [M54.50] 07/17/2013 Knee pain [M25.569] 12/01/2013 09/22/2018 Chronic back pain [M54.9, G89.29] 12/01/2013 Lumbar spondylosis [M47.816] 12/01/2013 Lumbar strain [S39.012A] 12/01/2013 Chronic tension-type headache, intractable [G44*12/24/2015 Chronic neck pain [M54.2, G89.29] 06/03/2017 Somatic dysfunction of cervical region [M99.01] 06/03/2017 Somatic dysfunction of thoracic region [M99.02] 06/03/2017 Somatic dysfunction of lumbar region [M99.03] 06/03/2017 Lung nodules [R91.8] 05/04/2019 Migraine with aura, not intractable, without st*07/24/2021 DDD (degenerative disc disease), cervical [M50.*07/24/2021 Encounter Status:Closed by EPIC, PRODUSER on 09/14/22 [facility] 08-19-2022 Miscellaneous Notes No visit scheduled. [facility] 12/14/22 Patient has been identified by name and date of : Yes Requested Prescriptions Pending Prescriptions Disp Refills gabapentin (NEURONTIN) 400 mg capsule 90 capsule 0 Sig: Take 1 capsule by mouth three times daily for 90 days. baclofen (LIORESAL) 10 mg tablet 90 tablet 2 Sig: Take 1 tablet by mouth three times daily as needed (muscle spasms). SUMAtriptan (IMITREX) 100 mg tablet 12 tablet 2 Sig: Take 1 tablet by mouth as needed for migraine headache (see administration instructions) (Okay to repeat 2nd dose in 2-3 hours if migraine is still present). RX INSTRUCTIONS: Patient aware RX will be sent to pharmacy. No need to notify patient. Pham Garcia [employer] documented in this encounter [facility] 07-07-2022 Miscellaneous Notes Addended by: KHALIF ARMIJO on: 07/07/2022 04:17 PM Modules accepted: Orders Patient also needs to get her baclofen refilled. baclofen (LIORESAL) 10 mg tablet 90 tablet 2 Patient has been identified by name and date of : Yes Requested Prescriptions Pending Prescriptions Disp Refills SUMAtriptan (IMITREX) 100 mg tablet 12 tablet 2 Sig: Take 1 tablet by mouth as needed for migraine headache (see administration instructions) (Okay to repeat 2nd dose in 2-3 hours if migraine is still present). RX INSTRUCTIONS: Patient aware RX will be sent to pharmacy. No need to notify patient. Maeve Núñez Pss ' documented in this encounter [facility] 05-21-2022 Miscellaneous Notes Patient has been identified by name and date of : Yes Last office visit in this department: 04/22/2022 Labs-02/20/22 NOV-none med filled 04/08/22 RX INSTRUCTIONS: Patient aware RX will be sent to pharmacy. No need to notify patient. Patient phones requesting refills as follows: Requested Prescriptions Pending Prescriptions Disp Refills SUMAtriptan (IMITREX) 100 mg tablet 12 tablet 2 Sig: Take 1 tablet by mouth as needed for migraine headache (see administration instructions) (Okay to repeat 2nd dose in 2-3 hours if migraine is still present). Please review and advise. Nicolette Parks Pss documented in this encounter [facility] 04-22-2022 Instructions Bruna Parker APRN.ASSISTANT WRESTLING COACH - 04/22/2022 3:57 PM EST Wear the spica splint. Ice to the wrist. You can use the ibuprofen 800 mg every 6-8 hours. You can also use tylenol if needed. Schedule w/ ortho. documented in this encounter [facility] 04-22-2022 History of Presen t illness Narrative This is a 46 year old female who presents today with: Patient presents with: Hand Pain: R hand pain HISTORY OF PRESENT ILLNESS: Emeli Herrera is a 46 year old female. Patient presents with: Hand Pain: R hand pain Pt presents today with complaint of right hand/wrist pain. Refers that it has been hurting for a couple of weeks. Describes primarily at the base of the wrist. No known injury She had a fall a few weeks ago, but doesn't think that caused. Refers that she went to urgent care and they did xrays and started steroids. Has noticed some swelling around the around the thumb area. She is taking using advil/ibuprofen. Refers that she is taking ibuprofen 800 mg about every 6 hours. She reports that she does wear a thumb spica at work. She also reports that she was recently treated for a right ear infection. Initially treated with Omnicef. She had no improvement. So then she was treated with azithromycin. Reports that symptoms initially improved, but now is starting to feel like her ear is blocked up again. PAST MEDICAL HISTORY: PAST MEDICAL HISTORY Diagnosis Date Bipolar 1 disorder ([facility]) [facility] DVT (deep venous thrombosis) ([facility]) 2007 Marijuana use Migraine with aura PE (pulmonary embolism) 2006 PTSD (post-traumatic stress disorder) sees psych [facility] Schizoaffective disorder ([facility]) sees psych at [facility] Urinary tract infection, site not specified 2003 PAST SURGICAL HISTORY Procedure Laterality Date DELIVERY ONLY x 3 , low cervical LIG/TRNSXJ FLP TUBE ABDL/VAG APPR UNI/BI 2001 Tubal ligation PAST SURGICAL HISTORY OF Left 2017 I&D left leg wound TOTAL ABDOMINAL HYSTERECT W/WO RMVL TUBE OVARY -says somethign cancerous or precancerous ALLERGIES Penicillins, Vicodin [Hydrocodone-Acetaminophen], and Vidaylin Vitamins [Other] MEDICATIONS Current Outpatient Medications Medication Sig SUMAtriptan (IMITREX) 100 mg tablet Take 1 tablet by mouth as needed for migraine headache (see administration instructions) (Okay to repeat 2nd dose in 2-3 hours if migraine is still present). baclofen (LIORESAL) 10 mg tablet Take 1 tablet by mouth three times daily as needed (muscle spasms). gabapentin (NEURONTIN) 600 mg tablet Take 1 tablet by mouth three times daily for 90 days. lamoTRIgine (LAMICTAL) 100 mg tablet Take 1 tablet by mouth once daily. gabapentin (NEURONTIN) 400 mg capsule Take 1 capsule by mouth three times daily for 90 days. triamcinolone acetonide (KENALOG) 0.1 % cream Apply 1 application to affected area twice daily. albuterol HFA (PROVENTIL HFA, VENTOLIN HFA) 90 mcg/actuation inhaler Inhale 2 Puffs as instructed every 6 hours as needed for Wheezing/Shortness of Breath. No current facility-administered medications for this visit. FAMILY HISTORY Problem Relation Age of Onset Psychiatry Mother Hypertension Father Diabetes Father Emphysema Paternal Grandfather Breast Cancer Maternal Grandmother Cancer Paternal Grandmother lung Thyroid Sister Psychiatry Sister 2 sisters Social History Tobacco Use Smoking status: Every Day Packs/day: 0.50 Years: 14.00 Pack years: 7.00 Types: Cigarettes Smokeless tobacco: Never Substance Use Topics Alcohol use: No Drug use: Not Currently Types: Marijuana Comment: occasional marijuana EXAM: BP 114/82 Pulse 82 Resp 18 LMP 10/13/2006 SpO2 96% PHYSICAL EXAM: General Appearance: Well appearing, alert, in no acute distress, well-hydrated, well nourished.. Skin: Skin color, texture, turgor normal, no suspicious rashes or lesions. Head: Normocephalic, no masses, lesions, tenderness or abnormalities. Eyes: Anicteric sclera. Extraocular movements are intact. . Ears: External ears normal, canals clear, Positive findings: R TM: purulent material noted behind TM. Extremities: No deformities, edema, skin discoloration, clubbing or cyanosis. Good capillary refill. ROM intact to the wrist. Some discomfort around the base of the thumb. Positive Doe test. Neurologic: Gait normal. ASSESSMENT/PLAN: 1. De Quervain's syndrome (tenosynovitis) - ICD9: 727.04, ICD10: M65.4 (primary diagnosis) Suspect de Quervain's. Encouraged to use a thumb spica splint. Ice the wrist and thumb. Discussed appropriate NSAID use. Exercises given. Will also refer to Ortho. - CONSULT TO ORTHOPAEDICS 2. Right non-suppurative otitis media - ICD9: 381.4, ICD10: H65.91 Has already been treated with cephalosporin and macrolide. We will go ahead and start Bactrim. Discussed treatment plan and patient voices understanding. Patient's questions answered appropriately. Medications and potential side effects were discussed and patient voices understanding. Return to the office as scheduled or as needed for worsening/no improvement. Bruna Pakrer APRN.DAVID This note was partially generated using PAAY voice recognition system. Note was reviewed for accuracy. There may be minor misspellings or grammar miscues with PAAY voice recognition. documented in this encounter [facility] 04-08-2022 History of Presen t illness Narrative Subjective Ear Problem Associated symptoms include hearing loss. Pertinent negatives include no coughing, headaches or sore throat. Emeli Herrera is a 46 year old female who presents to [facility] care for evaluation of right ear pain and feeling clogged. She was treated here on 03/16 with omnicef for ear infection. She completed the antibiotic but symptoms never fully resolved. She has not had afever. Review of Systems Constitutional: Negative for chills and fever. HENT: Positive for ear pain and hearing loss. Negative for congestion and sore throat. Respiratory: Negative for cough. Cardiovascular: Negative. Musculoskeletal: Negative for myalgias. Neurological: Negative for headaches. BP 122/72 Pulse 88 Temp 36.1 C (96.9 F) Resp 16 Wt 95.7 kg (211 lb) LMP 10/13/2006 SpO2 100% BMI 32.08 kg/m PAST MEDICAL HISTORY Diagnosis Date Bipolar 1 disorder ([facility]) [facility] DVT (deep venous thrombosis) ([facility]) 2006 Marijuana use Migraine with aura PE (pulmonary embolism) 2006 PTSD (post-traumatic stress disorder) sees psych at [facility] Schizoaffective disorder ([facility]) sees psych at [facility] Urinary tract infection, site not specified 2003 PAST SURGICAL HISTORY Procedure Laterality Date DELIVERY ONLY x 3 , low cervical LIG/TRNSXJ FLP TUBE ABDL/VAG APPR UNI/BI 2001 Tubal ligation PAST SURGICAL HISTORY OF Left 2017 I&D left leg wound TOTAL ABDOMINAL HYSTERECT W/WO RMVL TUBE OVARY -says somethign cancerous or precancerous ALLERGIES Penicillins, Vicodin [Hydrocodone-Acetaminophen], and Vidaylin Vitamins [Other] MEDICATIONS SUMAtriptan (IMITREX) 100 mg tablet Take 1 tablet by mouth as needed for migraine headache (see administration instructions) (Okay to repeat 2nd dose in 2-3 hours if migraine is still present). baclofen (LIORESAL) 10 mg tablet Take 1 tablet by mouth three times daily as needed (muscle spasms). acetaminophen 325 mg-caffeine 40 mg-butalbital 50 mg (FIORICET) per tablet Take 1 tablet by mouth every 4 hours as needed for up to 30 days. Use sparingly, not in same 6h as baclofen gabapentin (NEURONTIN) 600 mg tablet Take 1 tablet by mouth three times daily for 90 days. lamoTRIgine (LAMICTAL) 100 mg tablet Take 1 tablet by mouth once daily. gabapentin (NEURONTIN) 400 mg capsule Take 1 capsule by mouth three times daily for 90 days. triamcinolone acetonide (KENALOG) 0.1 % cream Apply 1 application to affected area twice daily. albuterol HFA (PROVENTIL HFA, VENTOLIN HFA) 90 mcg/actuation inhaler Inhale 2 Puffs as instructed every 6 hours as needed for Wheezing/Shortness of Breath. azithromycin (ZITHROMAX) 250 mg tablet Take 2 tablets by mouth once daily for 1 day, THEN 1 tablet once daily for 4 days. FAMILY HISTORY Problem Relation Age of Onset Psychiatry Mother Hypertension Father Diabetes Father Emphysema Paternal Grandfather Breast Cancer Maternal Grandmother Cancer Paternal Grandmother lung Thyroid Sister Psychiatry Sister 2 sisters Social History Tobacco Use Smoking status: Every Day Packs/day: 0.50 Years: 14.00 Pack years: 7.00 Types: Cigarettes Smokeless tobacco: Never Substance Use Topics Alcohol use: No Drug use: Not Currently Types: Marijuana Comment: occasional marijuana Objective Physical Exam Vitals and nursing note reviewed. HENT: Right Ear: Ear canal and external ear normal. Decreased hearing noted. Drainage present. Tympanic membrane is injected and erythematous. Left Ear: Tympanic membrane, ear canal and external ear normal. Nose: Nose normal. Mouth/Throat: Pharynx: Uvula midline. Cardiovascular: Rate and Rhythm: Normal rate and regular rhythm. Heart sounds: Normal heart sounds. Pulmonary: Effort: Pulmonary effort is normal. No respiratory distress. Breath sounds: Normal breath sounds. No wheezing or rales. Musculoskeletal: Cervical back: Neck supple. Lymphadenopathy: Cervical: No cervical adenopathy. Skin: General: Skin is warm and dry. Findings: No erythema or rash. Neurological: Mental Status: She is alert. ASSESSMENT/PLAN: 1. Other acute nonsuppurative otitis media of right ear, recurrence not specified - ICD9: 381.00, ICD10: H65.191 - Will begin treatment with as per antibiotic as written, see orders - I suggested that Augmentin would be the best option for treatment since Omnicef did not fully resolve the infection, patient states My doctor never gives me anything but a ZPak for my ears and she prefers this medication. - AZITHROMYCIN 250 MG TABLET - Follow-up with your PCP in 3-5 days if symptoms have not improved or sooner if symptoms worsen - Discussed red flags and need for immediate medical evaluation if any occur. - Discussed supportive care treatment with fluids, rest and analgesia. - Discussed expected course of illness Callie Ordonez APRN.ASSISTANT WRESTLING COACH documented in this encounter [facility] 04-08-2022 Instructions Callie Ordonez APRN.CNP - 04/08/2022 1:03 PM EST ASSESSMENT/PLAN: 1. Other acute nonsuppurative otitis media of right ear, recurrence not specified - ICD9: 381.00, ICD10: H65.191 - Will begin treatment with as per antibiotic as written, see orders - AZITHROMYCIN 250 MG TABLET - Follow-up with your PCP in 3-5 days if symptoms have not improved or sooner if symptoms worsen - Discussed red flags and need for immediate medical evaluation if any occur. - Discussed supportive care treatment with fluids, rest and analgesia. - Discussed expected course of illness Callie Ordonez APRN.DAVID OTITIS MEDIA GENERAL INFORMATION: Otitis media is an infection of the middle ear. The middle ear sits behind the eardrum. This infection may be caused by a virus or bacteria and often follows a cold. Children often have repeat ear infections. Otitis media is not contagious. INSTRUCTIONS: 1. An antibiotic has been prescribed. It should be taken exactly as prescribed. Do not stop the medicine even if the symptoms go away. 2. Eewg-qik-wgxgudj pain medication may be taken or other pain medication as prescribed by the doctor. 3. Nothing should be placed in the ear unless instructed by your doctor. 4. The patient may return to school/daycare or work when the temperature is normal (98.6 F or 37 C). 5. The patient should not swim while the ear is infected. CONTACT YOUR DOCTOR IF YOU OR YOUR CHILD: 1. Does not feel better within 36 hours. 2. Develops a temperature over 102E F (39E C). 3. Starts vomiting or has diarrhea. 4. Develops drainage from the affected ear. 5. Has any new problem that may be related to the medicine prescribed. RETURN TO THE ED IF: 1. You or your child has a severe headache or pain around the ear. 2. You or your child notice swelling around the ear. 3. You or your child has a seizure (convulsion), twitching of the facial muscles, or passes out. 4. You or your child is dizzy, has a stiff neck, or cannot walk or talk normally. 5. Your child becomes more irritable or listless (not interested in his or her surroundings, does not get soothed by you holding him or her). documented in this encounter [facility] 04-08-2022 Miscellaneous Notes CH[place]ERE 03/12/22 NOV no upcoming appt Patient has been identified by name and date of : Yes Last office visit in this department: Visit date not found RX INSTRUCTIONS: Patient aware RX will be sent to pharmacy. No need to notify patient. Patient phones requesting refills as follows: Requested Prescriptions Pending Prescriptions Disp Refills SUMAtriptan (IMITREX) 100 mg tablet 12 tablet 2 Sig: Take 1 tablet by mouth as needed for migraine headache (see administration instructions) (Okay to repeat 2nd dose in 2-3 hours if migraine is still present). Please review and advise. Pricilla Guardado documented in this encounter [facility] 03-21-2022 Miscellaneous Notes Patient has been identified by name and date of : Yes Patient phones for refill(s): Requested Prescriptions Pending Prescriptions Disp Refills baclofen (LIORESAL) 10 mg tablet 90 tablet 2 Sig: Take 1 tablet by mouth three times daily as needed (muscle spasms). Date of last office visit in primary care: 03/12/2022 Last 2 Encounter Wt Readings: Date: Wt: 03/16/2022 92.9 kg (204 lb 12.8 oz) 03/12/2022 92.1 kg (203 lb) Previous labs/tests for medication: Not applicable Please advise. Thank you. Helen Stanton documented in this encounter [facility] 03-16-2022 Instructions Ranjeet Del Rio APRN.DAVID - 03/16/2022 2:54 PM EST OTITIS MEDIA GENERAL INFORMATION: Otitis media is an infection of the middle ear. The middle ear sits behind the eardrum. This infection may be caused by a virus or bacteria and often follows a cold. Children often have repeat ear infections. Otitis media is not contagious. INSTRUCTIONS: 1. An antibiotic has been prescribed. It should be taken exactly as prescribed. Do not stop the medicine even if the symptoms go away. 2. Zcwd-fvy-eafyvew pain medication may be taken or other pain medication as prescribed by the doctor. 3. Nothing should be placed in the ear unless instructed by your doctor. 4. The patient may return to school/daycare or work when the temperature is normal (98.6 F or 37 C). 5. The patient should not swim while the ear is infected. CONTACT YOUR DOCTOR IF YOU OR YOUR CHILD: 1. Does not feel better within 36 hours. 2. Develops a temperature over 102E F (39E C). 3. Starts vomiting or has diarrhea. 4. Develops drainage from the affected ear. 5. Has any new problem that may be related to the medicine prescribed. RETURN TO THE ED IF: 1. You or your child has a severe headache or pain around the ear. 2. You or your child notice swelling around the ear. 3. You or your child has a seizure (convulsion), twitching of the facial muscles, or passes out. 4. You or your child is dizzy, has a stiff neck, or cannot walk or talk normally. 5. Your child becomes more irritable or listless (not interested in his or her surroundings, does not get soothed by you holding him or her). documented in this encounter [facility] 03-16-2022 History of Presen t illness Narrative This note was created using shipbeatriter. Subjective Emeli Herrera is a 46 year old female. 46 year old female with PMH migraine, DDD, bipolar, schizo, and PTSD presents with complaints of ear pain. Acute onset 5 days ago +right ear Popping and clicking Denies drainage. Denies accompanying URI sx. Denies cough. Denies SOB or dyspnea. Denies skin rash or lesions. Endorses that she was approximately one week ago She works at [employer] Utilized Tylenol with mild relief. The history is provided by the patient. No humanities and languages professor was used. Ear Pain This is a new problem. The current episode started in the past 7 days. The problem occurs constantly. The problem has been gradually worsening. Pertinent negatives include no abdominal pain, anorexia, arthralgias, change in bowel habit, chest pain, chills, congestion, coughing, diaphoresis, fatigue, fever, headaches, joint swelling, myalgias, nausea, neck pain, numbness, rash, sore throat, swollen glands, urinary symptoms, vertigo, visual change, vomiting or weakness. Nothing aggravates the symptoms. She has tried acetaminophen for the symptoms. The treatment provided no relief. PAST MEDICAL HISTORY Diagnosis Date Bipolar 1 disorder ([facility]) sees psych at [facility] DVT (deep venous thrombosis) ([facility]) 2006 Marijuana use Migraine with aura PE (pulmonary embolism) 2006 PTSD (post-traumatic stress disorder) sees psych at [facility] Schizoaffective disorder ([facility]) sees psych at [facility] Urinary tract infection, site not specified 2003 PAST SURGICAL HISTORY Procedure Laterality Date DELIVERY ONLY x 3 , low cervical LIG/TRNSXJ FLP TUBE ABDL/VAG APPR UNI/BI 2001 Tubal ligation PAST SURGICAL HISTORY OF Left 2017 I&D left leg wound TOTAL ABDOMINAL HYSTERECT W/WO RMVL TUBE OVARY -says somethign cancerous or precancerous ALLERGIES Penicillins, Vicodin [Hydrocodone-Acetaminophen], and Vidaylin Vitamins [Other] MEDICATIONS cefdinir (OMNICEF) 300 mg capsule Take 1 capsule by mouth twice daily for 7 days. acetaminophen 325 mg-caffeine 40 mg-butalbital 50 mg (FIORICET) per tablet Take 1 tablet by mouth every 4 hours as needed for up to 30 days. Use sparingly, not in same 6h as baclofen SUMAtriptan (IMITREX) 100 mg tablet Take 1 tablet by mouth as needed for migraine headache (see administration instructions) (Okay to repeat 2nd dose in 2-3 hours if migraine is still present). gabapentin (NEURONTIN) 600 mg tablet Take 1 tablet by mouth three times daily for 90 days. lamoTRIgine (LAMICTAL) 100 mg tablet Take 1 tablet by mouth once daily. baclofen (LIORESAL) 10 mg tablet Take 1 tablet by mouth three times daily as needed (muscle spasms). gabapentin (NEURONTIN) 400 mg capsule Take 1 capsule by mouth three times daily for 90 days. triamcinolone acetonide (KENALOG) 0.1 % cream Apply 1 application to affected area twice daily. albuterol HFA (PROVENTIL HFA, VENTOLIN HFA) 90 mcg/actuation inhaler Inhale 2 Puffs as instructed every 6 hours as needed for Wheezing/Shortness of Breath. FAMILY HISTORY Problem Relation Age of Onset Psychiatry Mother Hypertension Father Diabetes Father Emphysema Paternal Grandfather Breast Cancer Maternal Grandmother Cancer Paternal Grandmother lung Thyroid Sister Psychiatry Sister 2 sisters Social History Tobacco Use Smoking status: Every Day Packs/day: 0.50 Years: 14.00 Pack years: 7.00 Types: Cigarettes Smokeless tobacco: Never Substance Use Topics Alcohol use: No Drug use: Not Currently Types: Marijuana Comment: occasional marijuana Review of Systems Constitutional: Negative for chills, diaphoresis, fatigue and fever. HENT: Positive for ear pain. Negative for congestion, ear discharge, rhinorrhea, sinus pressure, sinus pain and sore throat. Eyes: Negative for photophobia, pain, discharge, redness, itching and visual disturbance. Respiratory: Negative for apnea, cough, choking and chest tightness. Cardiovascular: Negative for chest pain, palpitations and leg swelling. Gastrointestinal: Negative for abdominal pain, anorexia, change in bowel habit, nausea and vomiting. Musculoskeletal: Negative for arthralgias, joint swelling, myalgias and neck pain. Skin: Negative for color change, pallor and rash. Allergic/Immunologic: Negative for environmental allergies, food allergies and immunocompromised state. Neurological: Negative for dizziness, vertigo, facial asymmetry, weakness, light-headedness, numbness and headaches. Hematological: Negative for adenopathy. Does not bruise/bleed easily. Psychiatric/Behavioral: Negative for agitation and behavioral problems. Objective BP 144/92 Pulse 82 Temp 36.5 C (97.7 F) Resp 18 Wt 92.9 kg (204 lb 12.8 oz) LMP 10/13/2006 SpO2 99% BMI 31.14 kg/m Physical Exam Vitals and nursing note reviewed. Constitutional: General: She is not in acute distress. Appearance: Normal appearance. She is normal weight. She is not ill-appearing, toxic-appearing or diaphoretic. HENT: Head: Normocephalic and atraumatic. Right Ear: Ear canal and external ear normal. Left Ear: Ear canal and external ear normal. Ears: Comments: Right TM erythematous and bulging. EAC normal. Left TM moderate serous fluid noted. Nose: Nose normal. No congestion or rhinorrhea. Mouth/Throat: Mouth: Mucous membranes are moist. Pharynx: No oropharyngeal exudate or posterior oropharyngeal erythema. Eyes: General: Right eye: No discharge. Left eye: No discharge. Extraocular Movements: Extraocular movements intact. Conjunctiva/sclera: Conjunctivae normal. Pupils: Pupils are equal, round, and reactive to light. Cardiovascular: Rate and Rhythm: Normal rate and regular rhythm. Pulses: Normal pulses. Heart sounds: Normal heart sounds. No murmur heard. No friction rub. Pulmonary: Effort: Pulmonary effort is normal. No respiratory distress. Breath sounds: Normal breath sounds. No stridor. No wheezing, rhonchi or rales. Chest: Chest wall: No tenderness. Abdominal: General: Abdomen is flat. There is no distension. Palpations: Abdomen is soft. There is no mass. Tenderness: There is no abdominal tenderness. There is no right CVA tenderness, left CVA tenderness, guarding or rebound. Hernia: No hernia is present. Musculoskeletal: General: No swelling, tenderness, deformity or signs of injury. Normal range of motion. Cervical back: Normal range of motion and neck supple. No rigidity. Right lower leg: No edema. Left lower leg: No edema. Lymphadenopathy: Cervical: No cervical adenopathy. Skin: General: Skin is warm and dry. Capillary Refill: Capillary refill takes less than 2 seconds. Coloration: Skin is not jaundiced or pale. Findings: No bruising, erythema, lesion or rash. Neurological: General: No focal deficit present. Mental Status: She is alert and oriented to person, place, and time. Cranial Nerves: No cranial nerve deficit. Sensory: No sensory deficit. Motor: No weakness. Coordination: Coordination normal. Gait: Gait normal. Psychiatric: Mood and Affect: Mood normal. Behavior: Behavior normal. Thought Content: Thought content normal. Judgment: Judgment normal. Assessment and Plan ASSESSMENT/PLAN: 1. Acute otitis media, right - ICD9: 382.9, ICD10: H66.91 - Will begin treatment with as per antibiotic as written, see orders - The patient should also be given OTC cough and cold meds as needed, warm salt water gargles, throat lozenges and/or OTC throat spray as needed, and nasal saline gtts and suction prn for the first 5-7 days of treatment. - Supportive care with plenty of fluids, rest, and analgesia prn. - Follow up in 3-5 days if symptoms persist or worsen. 2. Otalgia, right Given context and findings of AOM Ranjeet Del Rio APRN.ASSISTANT WRESTLING COACH documented in this encounter [facility] 03-12-2022 Instructions Rudy Lugo PA-C - 03/12/2022 5:20 PM EDT Ice/ moist heat, lineaments, OTC analgesics as needed. Stretching and posture reviewed. documented in this encounter [facility] 03-12-2022 History of Presen t illness Narrative 46 year old female with c/o here for follow up Migraine with aura, not intractable, without status migrainosus (primary encounter diagnosis) Migraine without aura and with status migrainosus, not intractable Chronic tension-type headache, intractable Current medications: Sumatriptan 100 mg stat severe headache, repeat in 2 hours once prn [id number] mg-caff 40mg-butal 50mg q4h prn BORDEN sparingly Fioracet has helped quite a bit. Was able to make through month on current rx for imitrex. lumbar spondylosis Ddd (degenerative disc disease), cervical Current medications: Baclofen 10 mg three times daily as needed Gabapentin 400 mg 1 capsule 3 times daily Chronic pain in neck and upper back Gabapentin seems to be helping a lot with pain and mood. Bipolar 1 disorder ([facility]cc) Ptsd (post-traumatic stress disorder) Schizoaffective disorder, bipolar type ([facility]) Current medications: Lamotrigine 100 mg daily Not seeing psychiatry Smoker Smoking 1/ 2PPD Lung nodules 08/07/21 CT chest WO 2 mm nodule and a 4 mm nodule seen in the left lower lobe, 3.5 mm nodule in the right lower lobe; focal atelectasis seen in the right lower lobe. 04/27/19 CTA chest for right arm numbness: 3mm solid nodule left base - order for CT pending. HISTORIES FAMILY HISTORY Problem Relation Age of Onset Psychiatry Mother Hypertension Father Diabetes Father Emphysema Paternal Grandfather Breast Cancer Maternal Grandmother Cancer Paternal Grandmother lung Thyroid Sister Psychiatry Sister 2 sisters PAST MEDICAL HISTORY Diagnosis Date Bipolar 1 disorder ([facility]) sees psych [facility] DVT (deep venous thrombosis) ([facility]) 2007 Marijuana use Migraine with aura PE (pulmonary embolism) 2006 PTSD (post-traumatic stress disorder) sees psych at [facility] Schizoaffective disorder ([facility]) sees psych at [facility] Urinary tract infection, site not specified 2003 PAST SURGICAL HISTORY Procedure Laterality Date DELIVERY ONLY x 3 , low cervical LIG/TRNSXJ FLP TUBE ABDL/VAG APPR UNI/BI 2001 Tubal ligation PAST SURGICAL HISTORY OF Left 2017 I&D left leg wound TOTAL ABDOMINAL HYSTERECT W/WO RMVL TUBE OVARY -says somethign cancerous or precancerous Social History Tobacco Use Smoking status: Every Day Packs/day: 0.50 Years: 14.00 Pack years: 7.00 Types: Cigarettes Smokeless tobacco: Never Substance Use Topics Alcohol use: No Drug use: Not Currently Types: Marijuana Comment: occasional marijuana ACTIVE PROBLEM LIST Migraine Without Aura Bipolar 1 disorder (HCC) Ptsd (Post-Traumatic Stress Disorder) Schizoaffective Disorder ([facility]) Lumbago Chronic Back Pain Lumbar Spondylosis Lumbar Strain Chronic Tension-Type Headache, Intractable Chronic Neck Pain Somatic Dysfunction of Cervical Region Somatic Dysfunction of Thoracic Region Somatic Dysfunction of Lumbar Region Lung Nodules Migraine With Aura, Not Intractable, Without Status Migrainosus Ddd (Degenerative Disc Disease), Cervical Current Outpatient Medications Medication Sig Dispense Refill SUMAtriptan (IMITREX) 100 mg tablet Take 1 tablet by mouth as needed for migraine headache (see administration instructions) (Okay to repeat 2nd dose in 2-3 hours if migraine is still present). 12 tablet 2 gabapentin (NEURONTIN) 600 mg tablet Take 1 tablet by mouth three times daily for 90 days. 90 tablet 5 lamoTRIgine (LAMICTAL) 100 mg tablet Take 1 tablet by mouth once daily. 90 tablet 1 acetaminophen 325 mg-caffeine 40 mg-butalbital 50 mg (FIORICET) per tablet Take 1 tablet by mouth every 4 hours as needed. 20 tablet 0 baclofen (LIORESAL) 10 mg tablet Take 1 tablet by mouth three times daily as needed (muscle spasms). 90 tablet 2 gabapentin (NEURONTIN) 400 mg capsule Take 1 capsule by mouth three times daily for 90 days. 90 capsule 0 triamcinolone acetonide (KENALOG) 0.1 % cream Apply 1 application to affected area twice daily. 60 g 1 albuterol HFA (PROVENTIL HFA, VENTOLIN HFA) 90 mcg/actuation inhaler Inhale 2 Puffs as instructed every 6 hours as needed for Wheezing/Shortness of Breath. 1 Inhaler 0 No current facility-administered medications for this visit. PNEUMOCOCCAL(1 - PCV) Never done PAP TESTING Never done HPV TESTING Never done DEPRESSION ASSESSMENT Never done COVID-19 VACCINE(3 - Booster for Pfizer series) due on 06/25/2021 INFLUENZA(1) due on 01/08/2022 EXAM: BP 118/74 Pulse 83 Resp 16 Wt 92.1 kg (203 lb) LMP 10/13/2006 SpO2 99% BMI 30.87 kg/m Pleasant overweight adult woman in no acute distress. Alert and oriented all spheres. Normal affect and cognition. Speech normal. No deficits to learning or comprehension. Skin warm, dry, pink to lips and nailbeds. Normal turgor. Respirations regular and unlabored. Neck pain with TTPs bilateral in occipitalis, SCM insertions occipital and medial neck. Mild restrictions with lateral rotation, side bending, mildly with flexion. Extrem: no clubbing or cyanosis. Edema: none. Extremities are warm and pink with prompt capillary refill. Spurling's test negative. OMT: myofascial release to trigger points, muscle energy, strain counterstrain with good release and improved mobility. ASSESSMENT/PLAN: 1. Migraine with aura, not intractable, without status migrainosus - ICD9: 346.00, ICD10: G43.109 (primary diagnosis Use sparingly and not concurrent with baclofen, only for severe headaches. F/U prn OMT Push fluids Relaxation techniques, mindfulness. [id number] E 50 MG-325 MG-40 MG TABLET 2. Migraine without aura and with status migrainosus, not intractable - ICD9: 346.12, ICD10: G43.001 As above 3. Chronic tension-type headache, intractable - ICD9: 339.12, ICD10: G44.221 As above 4. Lumbar spondylosis - ICD9: 721.3, ICD10: M47.816 5. DDD (degenerative disc disease), cervical - ICD9: 722.4, ICD10: M50.30 Following with Emery Cortez 6. Bipolar 1 disorder (HCC) - ICD9: 296.7, ICD10: F31.9 Stable on meds. No manic episodes for many years 7. PTSD (post-traumatic stress disorder) - ICD9: 309.81, ICD10: F43.10 8. Schizoaffective disorder, bipolar type (HCC) - ICD9: 295.70, ICD10: F25.0 As above. Following with [facility] 9. Smoker - ICD9: 305.1, ICD10: F17.200 - Cessation encouraged. Trying to cut back - Physiologic and physical aspects of tobacco addiction as well as strategies for quitting were discussed. - Counseling was given focusing on the harmful effects of this addiction especially given the patient's medical condition(s) which will be worsened because of the chemicals in tobacco. 10. Lung nodules - ICD9: 793.19, ICD10: R91.8 Has f/u CT orders pending: needs to giovanni 11. Encounter for immunization - ICD9: V03.89, ICD10: Z23 - PNEUMOCOCCAL VACCINE (PREVNAR 20) 12. Somatic dysfunction of cervical region - ICD9: 739.1, ICD10: M99.01 Push fluids Stretching, muscle energy techniques reviewed. F/u prn, seems to benefit Rudy Lugo PA-C documented in this encounter [facility] 03-09-2022 Miscellaneous Notes Please assist: Dr. Cortez, [facility], consult outstanding Thanks, Justin Lugo PA-C Patient reports she saw Justin Lugo PA-C on 02/19/22 and was referred to Pain Mgmt. She states she was given a specific provider and phone number that Justin wanted patient to see but she lost that information. Patient asking if Justin can advise on who she is to see in Pain Mgmt again? Thank you. documented in this encounter [facility] 02-25-2022 Miscellaneous Notes Patient returned call and went over results, notes from Justin STANTON with understanding. Called and left message on patients voicemail to return call to the office and ask to speak with a triage nurse. Ana Batres Ma ----- Message from Rudy Lugo PA-C sent at 02/25/2022 9:59 AM EDT ----- Please advise chemistries look good except for minor abnormalities which are not significant, blood count looks good also. Thanks, Justin Lugo PA-C documented in this encounter [facility] 02-19-2022 History of Presen t illness Narrative 46 year old female with c/o neck is getting a lot worse Migraines increasing. Tried soft pillow, hard pillow, neck pillows Nothing seems to really help pain, Worse if out of baclofen, gabapentin Gabapentin helps but only slightly. Sugars 170-205 on dad's glucometer Hasn't had full feeling in left foot for months, Right intermittent sensation also , not as bad Pain in neck causing headaches. Going through Imitrex quickly. Wants to transfer from Dr. Mcghee to [facility] pain management Patient states refill on lamictal was for initial loading dose- thought this was supposed to take place because she had missed a few doses. She was doing well on 100mg Has been off med 8 days again due to lack of calling for refill. Tolerates medication well. HISTORIES FAMILY HISTORY Problem Relation Age of Onset Psychiatry Mother Hypertension Father Diabetes Father Emphysema Paternal Grandfather Breast Cancer Maternal Grandmother Cancer Paternal Grandmother lung Thyroid Sister Psychiatry Sister 2 sisters PAST MEDICAL HISTORY Diagnosis Date Bipolar 1 disorder ([facility]) [facility] DVT (deep venous thrombosis) ([facility]) 2007 Marijuana use Migraine with aura PE (pulmonary embolism) 2006 PTSD (post-traumatic stress disorder) sees psych at [facility] Schizoaffective disorder ([facility]) sees psych at [facility] Urinary tract infection, site not specified 2003 PAST SURGICAL HISTORY Procedure Laterality Date DELIVERY ONLY x 3 , low cervical LIG/TRNSXJ FLP TUBE ABDL/VAG APPR UNI/BI 2001 Tubal ligation PAST SURGICAL HISTORY OF Left 2017 I&D left leg wound TOTAL ABDOMINAL HYSTERECT W/WO RMVL TUBE OVARY -says somethign cancerous or precancerous Social History Tobacco Use Smoking status: Every Day Packs/day: 0.50 Years: 14.00 Pack years: 7.00 Types: Cigarettes Smokeless tobacco: Never Substance Use Topics Alcohol use: No Drug use: Not Currently Types: Marijuana Comment: occasional marijuana ACTIVE PROBLEM LIST Migraine Without Aura Bipolar 1 disorder ([facility]) Ptsd (Post-Traumatic Stress Disorder) Schizoaffective Disorder ([facility]) Lumbago Chronic Back Pain Lumbar Spondylosis Lumbar Strain Chronic Tension-Type Headache, Intractable Chronic Neck Pain Somatic Dysfunction of Cervical Region Somatic Dysfunction of Thoracic Region Somatic Dysfunction of Lumbar Region Lung Nodules Migraine With Aura, Not Intractable, Without Status Migrainosus Ddd (Degenerative Disc Disease), Cervical Current Outpatient Medications Medication Sig Dispense Refill baclofen (LIORESAL) 10 mg tablet Take 1 tablet by mouth three times daily as needed (muscle spasms). 90 tablet 2 gabapentin (NEURONTIN) 400 mg capsule Take 1 capsule by mouth three times daily for 90 days. 90 capsule 0 SUMAtriptan (IMITREX) 100 mg tablet Take 1 tablet by mouth as needed. 9 tablet 2 lamoTRIgine (LAMICTAL) 100 mg tablet Take 1 tablet by mouth once daily. After titration from 75 mg a day 30 tablet 0 triamcinolone acetonide (KENALOG) 0.1 % cream Apply 1 application to affected area twice daily. 60 g 1 albuterol HFA (PROVENTIL HFA, VENTOLIN HFA) 90 mcg/actuation inhaler Inhale 2 Puffs as instructed every 6 hours as needed for Wheezing/Shortness of Breath. 1 Inhaler 0 ACETAMINOPHEN/CAFFEINE (EXCEDRIN ASPIRIN FREE ORAL) Take by mouth. No current facility-administered medications for this visit. PNEUMOCOCCAL(1 - PCV) Never done PAP TESTING Never done HPV TESTING Never done DEPRESSION ASSESSMENT Never done COVID-19 VACCINE(3 - Booster for Pfizer series) due on 06/25/2021 INFLUENZA(1) due on 01/08/2022 EXAM: BP 122/68 Pulse 69 Resp 16 Wt 93 kg (205 lb) LMP 10/13/2006 SpO2 99% BMI 31.17 kg/m Pleasant adult woman in no acute distress. Alert and oriented all spheres. Normal affect and cognition. Speech normal. No deficits to learning or comprehension. Skin warm, dry, pink to lips and nailbeds. Normal turgor. Respirations regular and unlabored. Extrem: no clubbing or cyanosis. Edema: none. Extremities are warm and pink with prompt capillary refill. ASSESSMENT/PLAN: 1. Bipolar 1 disorder (HCC) - ICD9: 296.7, ICD10: F31.9 (primary diagnosis) Improved on lamictal Will need caution with combining increased dose gabapentin as similar medications. Tolerated well previously with improvement. - COMP METABOLIC PANEL - CBC 2. Migraine with aura, not intractable, without status migrainosus - ICD9: 346.00, ICD10: G43.109 Suspect large headache component muscular. Trial Fioracet to cut back on overuse sumatriptan. Advised on medication cautions, side effects and possible risks with multiple medications: to notify if any unusual sx - SUMATRIPTAN 100 MG TABLET - SROHAGCYNZ-[id number]-DKQLOXT E 50 MG-325 MG-40 MG TABLET 3. DDD (degenerative disc disease), cervical - ICD9: 722.4, ICD10: M50.30 Monitor progress in 4 weeks. - GABAPENTIN 600 MG TABLET - CONSULT TO PAIN MGT 4. Lumbar spondylosis - ICD9: 721.3, ICD10: M47.816 - GABAPENTIN 600 MG TABLET - CONSULT TO PAIN MGT 5. Schizoaffective disorder, bipolar type (HCC) - ICD9: 295.70, ICD10: F25.0 - COMP METABOLIC PANEL - CBC - LAMOTRIGINE 100 MG TABLET 6. Elevated glucose - ICD9: 790.29, ICD10: R73.09 - HGB A1C - COMP METABOLIC PANEL - CBC F/u 4 weeks. Rudy Lugo PA-C documented in this encounter [facility] 02-09-2022 Miscellaneous Notes Pt notified and voiced understanding. Vania Mendez Ma' I think it is due to the amount we are using. It is prn. Should not be using every day, three times a day routine. Work on spreading out the usage. Rx sent. Emeli is calling about her Baclofen. She received a script for 30 pills with instructions to take 3 daily for back spasms. She is out and cannot get a refill do to the wording on the script. She would like the doctor to review and allow her to get a refill. Emeli [phone] documented in this encounter [facility] 01-15-2022 Miscellaneous Notes Patient phones requesting refills as follows: Requested Prescriptions Pending Prescriptions Disp Refills gabapentin (NEURONTIN) 400 mg capsule 90 capsule 0 Sig: Take 1 capsule by mouth three times daily for 90 days. SUMAtriptan (IMITREX) 100 mg tablet 9 tablet 2 Sig: Take 1 tablet by mouth as needed. baclofen (LIORESAL) 10 mg tablet 30 tablet 2 Sig: Take 1 tablet by mouth three times daily as needed (muscle spasms). CHINYERE 10/17/21 (virtual) *Pt no showed appt on 11/21/21 NOV no upcoming appt Please review and advise. Corey Card LPN Patient has been identified by name and date of : Yes Requested Prescriptions Pending Prescriptions Disp Refills gabapentin (NEURONTIN) 400 mg capsule 90 capsule 0 Sig: Take 1 capsule by mouth three times daily for 90 days. SUMAtriptan (IMITREX) 100 mg tablet 9 tablet 2 Sig: Take 1 tablet by mouth as needed. baclofen (LIORESAL) 10 mg tablet 30 tablet 2 Sig: Take 1 tablet by mouth three times daily as needed (muscle spasms). RX INSTRUCTIONS: Patient aware RX will be sent to pharmacy. No need to notify patient. Diane Brown documented in this encounter [facility] 01-01-2022 Miscellaneous Notes Patient last visit with PCP 10/17/21 Follow up appointment scheduled NO showed 11/21 Brigitte Oneil Ma Pharmacy verified in Epic Patient has been identified by name and date of : Yes Patient aware RX will be sent to pharmacy. No need to notify patient. Patient phones for refill(s): Requested Prescriptions Pending Prescriptions Disp Refills gabapentin (NEURONTIN) 400 mg capsule 90 capsule 0 Sig: Take 1 capsule by mouth three times daily for 90 days. lamoTRIgine (LAMICTAL) 100 mg tablet 30 tablet 0 Sig: Take 1 tablet by mouth once daily. After titration from 75 mg a day lamoTRIgine (LAMICTAL) 25 mg tablet 42 tablet 0 Sig: Take 3 tablets by mouth once daily. Pt taking 75 mg for 2 weeks then will go up to 100mg Date of last office visit : 09/19/2021 Date of next office visit : Visit date not found Last 2 Encounter Wt Readings: Date: Wt: 11/22/2021 92.1 kg (203 lb) 09/08/2021 92.5 kg (204 lb) Please advise. Keyla Casey Pss documented in this encounter [facility] 12-04-2021 Miscellaneous Notes Patient has been identified by name and date of : Yes Pending Prescriptions Disp Refills GABAPENTIN 400 MG CAPSULE 90 capsule 0 Sig: Take 1 capsule by mouth three times daily for 90 days. BRIAN: No SUMATRIPTAN 100 MG TABLET 9 tablet 2 Sig: Take 1 tablet by mouth as needed. BRIAN: No RX INSTRUCTIONS: Patient aware RX will be sent to pharmacy. No need to notify patient. Sponduu [employer] documented in this encounter [facility] 11-23-2021 Miscellaneous Notes Patient given results and verbalized understanding of instructions given. Nicolette Graff ----- Message from Callie Ordonez APRN.ASSISTANT WRESTLING COACH sent at 11/23/2021 8:15 AM EDT ----- Please advise patient of negative COVID and influenza test. documented in this encounter [facility] 11-22-2021 History of Presen t illness Narrative CC: Patient presents with: Head Congestion: cough, vomiting and bodyaches, right ear pain x 3 days Had positive covid test at home. HPI: Emeli Herrera is a 46 year old female who presents to the office with complaint of respiratory symptoms, head congestion, cough, nonproductive, sore throat, sinus symptoms and ear symptoms for a few days. Symptoms are worsening Associated symptoms includes sore throat and cough. Denies dyspnea, fatigue, nausea, vomiting and diarrhea. Treatments tried include nothing so far. with no relief of symptoms. Sick contacts: unknown. History of asthma, frequent episodes of bronchitis, chronic bronchitis, bronchiectasis or COPD: No Smoker: No Seasonal/environmental allergies: No The ROS is otherwise negative. The patient's pmh, medications, allergies, and past visits are reviewed. PHYSICAL EXAM: BP 120/66 Pulse (!) 122 Temp 37.7 C (99.9 F) Resp 18 Wt 92.1 kg (203 lb) LMP 10/13/2006 SpO2 98% BMI 30.87 kg/m General appearance: alert, cooperative, pleasant, in no acute distress Head: Normocephalic Eyes: EOM's intact, conjunctiva pink and moist, no icterus, sclera white, non-injected Ears: Right ear: External ear/canal- Normal, TM - clear with good landmarks. Left ear: External ear/canal- Normal, TM - clear with good landmarks Oropharynx:moist without lesions, No erythema, exudates or tonsillar hypertrophy. Heart: Negative. RRR without obvious murmur, gallop, or rubs. No ectopy. Lungs: clear to auscultation, without rales or wheeze, good air exchange PAST MEDICAL HISTORY Diagnosis Date Bipolar 1 disorder ([facility]) sees psych at [facility] DVT (deep venous thrombosis) ([facility]) 2006 Marijuana use Migraine with aura PE (pulmonary embolism) 2006 PTSD (post-traumatic stress disorder) sees psych at [facility] Schizoaffective disorder ([facility]) sees psych at [facility] Urinary tract infection, site not specified 2003 PAST SURGICAL HISTORY Procedure Laterality Date DELIVERY ONLY x 3 , low cervical LIG/TRNSXJ FLP TUBE ABDL/VAG APPR UNI/BI 2001 Tubal ligation PAST SURGICAL HISTORY OF Left 2017 I&D left leg wound TOTAL ABDOMINAL HYSTERECT W/WO RMVL TUBE OVARY -says somethign cancerous or precancerous ALLERGIES Penicillins, Vicodin [Hydrocodone-Acetaminophen], and Vidaylin Vitamins [Other] MEDICATIONS ALPRAZolam (XANAX) 0.5 mg tablet Take 1 tablet by mouth at bedtime as needed for up to 30 days. gabapentin (NEURONTIN) 400 mg capsule Take 1 capsule by mouth three times daily for 90 days. baclofen (LIORESAL) 10 mg tablet Take 1 tablet by mouth three times daily. SUMAtriptan (IMITREX) 100 mg tablet Take 1 tablet by mouth as needed. lamoTRIgine (LAMICTAL) 25 mg tablet Take 3 tablets by mouth once daily. Pt taking 75 mg for 2 weeks then will go up to 100mg lamoTRIgine (LAMICTAL) 100 mg tablet Take 1 tablet by mouth once daily. After titration from 75 mg a day triamcinolone acetonide (KENALOG) 0.1 % cream Apply 1 application to affected area twice daily. albuterol HFA (PROVENTIL HFA, VENTOLIN HFA) 90 mcg/actuation inhaler Inhale 2 Puffs as instructed every 6 hours as needed for Wheezing/Shortness of Breath. ACETAMINOPHEN/CAFFEINE (EXCEDRIN ASPIRIN FREE ORAL) Take by mouth. lamoTRIgine (LAMICTAL) 25 mg tablet Take 1 tablet by mouth once daily for 14 days. 3 tabs daily x 1 week, then 4 tabs daily FAMILY HISTORY Problem Relation Age of Onset Psychiatry Mother Hypertension Father Diabetes Father Emphysema Paternal Grandfather Breast Cancer Maternal Grandmother Cancer Paternal Grandmother lung Thyroid Sister Psychiatry Sister 2 sisters Social History Tobacco Use Smoking status: Current Every Day Smoker Packs/day: 0.50 Years: 14.00 Pack years: 7.00 Types: Cigarettes Smokeless tobacco: Never Used Substance Use Topics Alcohol use: No Drug use: Not Currently Types: Marijuana Comment: occasional marijuana ASSESSMENT/PLAN: 1. Suspected COVID-19 virus infection - ICD9: V01.79, ICD10: Z20.822 - COVID WITH FLUA+B, ROUTINE Prescription instructions reviewed with patient as applicable. Potential red flag symptoms discussed with the patient. Reviewed appropriate action plan to take if red flag symptoms occur. Patient agreeable to treatment plan. Chio Vale APRN.ASSISTANT WRESTLING COACH documented in this encounter [facility] 11-05-2021 Miscellaneous Notes oarrs done. CHINYERE: 09/19/2021 Last refill: 09/08/2021 QTY: 30 Refills: 0 Patient's request for medication is as follows: Pending Prescriptions Disp Refills ALPRAZOLAM 0.5 MG TABLET 30 tablet 0 Sig: Take 1 tablet by mouth at bedtime as needed for up to 30 days. NILSA Class: C-IV BRIAN: No Please approve the above prescription(s) to electronically send to pharmacy. Kenny Galdamez Ma Patient has been identified by name and date of : Yes ALPRAZolam (XANAX) 0.5 mg tablet 30 tablet 0 RX INSTRUCTIONS: Patient aware RX will be sent to pharmacy. No need to nofity patient. Controlled medication - must be call in. Maeve Núñez Pss documented in this encounter [facility] 10-31-2021 Miscellaneous Notes Patient phones requesting refills as follows: Pending Prescriptions Disp Refills GABAPENTIN 400 MG CAPSULE 90 capsule 0 Sig: Take 1 capsule by mouth three times daily for 90 days. BRIAN: No CH[facility] 09/19/21 NOV 11/21/21 Please review and advise. Bridget Metz LPN Patient requesting her medication gabapentin 400 mg. Patient had put in a message earlier and the medication has not been filled. Patient would like it sent to [facility]. Patient has not had the medication in 1 week. documented in this encounter [facility] 10-27-2021 Miscellaneous Notes Pt notified and voiced understanding. Vania Mendez Ma Let her know I wrote two lamictals. Start second after she has finished the script for three 25 mg pills a day CH[facility]ERE 09/19/2021 Appointment scheduled for 11/21/2021 Please advise. Thank you. DEEP Pay[facility] verified in [facility] Patient has been identified by name and date of : Yes Patient aware RX will be sent to pharmacy. No need to notify patient. Patient phones for refill(s): Pending Prescriptions Disp Refills GABAPENTIN 400 MG CAPSULE 90 capsule 0 Sig: Take 1 capsule by mouth three times daily for 90 days. BRIAN: No BACLOFEN 10 MG TABLET 90 tablet 2 Sig: Take 1 tablet by mouth three times daily. BRIAN: No SUMATRIPTAN 100 MG TABLET 9 tablet 2 Sig: Take 1 tablet by mouth as needed. BRIAN: No LAMOTRIGINE 25 MG TABLET 105 tablet 0 Sig: By mouth 25mg daily x Week 1 and 2, 50mg daily week 3 and 4 BRIAN: No Date of last office visit : 09/19/2021 Date of next office visit : 11/21/2021 Last 2 Encounter Wt Readings: Date: Wt: 09/08/2021 92.5 kg (204 lb) 07/24/2021 95.3 kg (210 lb) Please advise. Keyla Casey Pss documented in this encounter [facility] 10-23-2021 Miscellaneous Notes Patient scheduled with Justin Lugo 11/21/21 telephone call visit. Cynthia Madden MA Left a message for pt to call the office and ask to speak to a nurse. Yaa Brooks LPN Justin Lugo would like to see patient back in 4 weeks. Attempted to contact patient to schedule. Unable to reach, left message to call office. Please assist patient with scheduling with [facility] for 4 weeks F/U. Cynthia Madden MA documented in this encounter [facility] 10-17-2021 History of Presen t illness Narrative Audio only was used for evaluation of this patient. Location of patient: [place] Patient was offered a virtual/telemedicine appointment in lieu of an office visit due to recommendations to reduce patient exposure to COVID-19. Patient is aware of limitations of performing the visit without a face to face visit in the office setting and agrees. 3:27 PM patient was not signed into my chart, called by nursing staff, not at home or close to her computer so we switched to phone contact. 46 year old female with c/o here for follow up Closed head injury without loss of consciousness Hematoma of occipital region of scalp Concussion without loss of consciousness, initial encounter Head is okay now. Has had more than usual headaches in the last week. imitrex aborts headaches. 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 04/27/19 CTA chest for right arm numbness: 3mm solid nodule left base HISTORIES FAMILY HISTORY Problem Relation Age of Onset Psychiatry Mother Hypertension Father Diabetes Father Emphysema Paternal Grandfather Breast Cancer Maternal Grandmother Cancer Paternal Grandmother lung Thyroid Sister Psychiatry Sister 2 sisters PAST MEDICAL HISTORY Diagnosis Date Bipolar 1 disorder (HCC) [facility] DVT (deep venous thrombosis) ([facility]) 2006 Marijuana use Migraine with aura PE (pulmonary embolism) 2006 PTSD (post-traumatic stress disorder) sees psych at [facility] Schizoaffective disorder (HCC) sees psych at [facility] Urinary tract infection, site not specified 2004 PAST SURGICAL HISTORY Procedure Laterality Date DELIVERY ONLY x 3 , low cervical LIG/TRNSXJ FLP TUBE ABDL/VAG APPR UNI/BI 2001 Tubal ligation PAST SURGICAL HISTORY OF Left 2017 I&D left leg wound TOTAL ABDOMINAL HYSTERECT W/WO RMVL TUBE OVARY -says somethign cancerous or precancerous Social History Tobacco Use Smoking status: Current Every Day Smoker Packs/day: 0.50 Years: 14.00 Pack years: 7.00 Types: Cigarettes Smokeless tobacco: Never Used Substance Use Topics Alcohol use: No Drug use: Not Currently Types: Marijuana Comment: occasional marijuana ACTIVE PROBLEM LIST Migraine Without Aura Bipolar 1 disorder (HCC) Ptsd (Post-Traumatic Stress Disorder) Schizoaffective Disorder (Hcc) Lumbago Chronic Back Pain Lumbar Spondylosis Lumbar Strain Chronic Tension-Type Headache, Intractable Chronic Neck Pain Somatic Dysfunction of Cervical Region Somatic Dysfunction of Thoracic Region Somatic Dysfunction of Lumbar Region Lung Nodules Migraine With Aura, Not Intractable, Without Status Migrainosus Ddd (Degenerative Disc Disease), Cervical Current Outpatient Medications Medication Sig Dispense Refill gabapentin (NEURONTIN) 400 mg capsule Take 1 capsule by mouth three times daily for 90 days. 90 capsule 0 lamoTRIgine (LAMICTAL) 25 mg tablet By mouth 25mg daily x Week 1 and 2, 50mg daily week 3 and 4 105 tablet 0 lamoTRIgine (LAMICTAL) 25 mg tablet Take 1 tablet by mouth once daily for 14 days. 3 tabs daily x 1 week, then 4 tabs daily 49 tablet 0 SUMAtriptan (IMITREX) 100 mg tablet Take 1 tablet by mouth as needed. 9 tablet 2 baclofen (LIORESAL) 10 mg tablet Take 1 tablet by mouth three times daily. 90 tablet 2 triamcinolone acetonide (KENALOG) 0.1 % cream Apply 1 application to affected area twice daily. 60 g 1 albuterol HFA (PROVENTIL HFA, VENTOLIN HFA) 90 mcg/actuation inhaler Inhale 2 Puffs as instructed every 6 hours as needed for Wheezing/Shortness of Breath. 1 Inhaler 0 ACETAMINOPHEN/CAFFEINE (EXCEDRIN ASPIRIN FREE ORAL) Take by mouth. No current facility-administered medications for this visit. PNEUMOCOCCAL(1 - PCV) Never done PAP TESTING Never done HPV TESTING Never done COVID-19 VACCINE(3 - Booster for Pfizer series) due on 09/28/2021 EXAM: LMP 10/13/2006 Pleasant adult woman in no acute distress. Alert and oriented all spheres. Normal affect and cognition. Speech normal. No deficits to learning or comprehension. Skin appears to move, pink to lips and oral membranes which are moist. No respiratory labor. Patient identifies with partial viewing of resolution of hematoma posterior right occipital. ASSESSMENT/PLAN: 1. Closed head injury without loss of consciousness, initial encounter - ICD9: 959.01, ICD10: S09.90XA (primary diagnosis) 2. Hematoma of occipital region of scalp - ICD9: 920, ICD10: S00.03XA 3. Concussion without loss of consciousness, initial encounter - ICD9: 850.0, ICD10: S06.0X0A Complete resolution, no active symptoms. 4. Migraine with aura, not intractable, without status migrainosus - ICD9: 346.00, ICD10: G43.109 Increased frequency since head trauma but alleviated with standard Imitrex treatment. Monitor for changes. 5. Bipolar 1 disorder (HCC) - ICD9: 296.7, ICD10: F31.9 6. PTSD (post-traumatic stress disorder) - ICD9: 309.81, ICD10: F43.10 7. Schizoaffective disorder, bipolar type (HCC) - ICD9: 295.70, ICD10: F25.0 Patient feels much better and she is titrated up on Lamictal, currently at 75 mg daily. We will continue titration 100 mg and then touch base with me on progress. We will anticipate continued increase up to 200 mg to patient's tolerance and improvement. 8. Lung nodules - ICD9: 793.19, ICD10: R91.8 Continued lung nodules, recommend repeat interval screening, orders in place. Follow-up again in 4 weeks virtual or phone. 3:40 PM 13 min call See orders and/or patient instructions. Patient ( or Guardian) expressed understanding of instructions on review. Rudy Lugo PA-C . documented in this encounter [facility] 09-22-2021 Miscellaneous Notes CH[facility] 09/19/21 NOV 10/07/21 Patient has been identified by name and date of : Yes Pending Prescriptions Disp Refills GABAPENTIN 400 MG CAPSULE 90 capsule 0 Sig: Take 1 capsule by mouth three times daily for 90 days. BRIAN: No RX INSTRUCTIONS: Patient aware RX will be sent to pharmacy. No need to notify patient. Opal Gifford Pss documented in this encounter [facility] 09-19-2021 History of Presen t illness Narrative Virtualist Progress Note Triage Call Triage source: Nurse [employer] Mode of contact (phone call, [employer], [employer], [facility], Skype, other): tele History/Physical Exam: 46 y/o female hit the back of her head on a steel shelf early today. No LOC. Now she has a headache, poor concentration and nausea. She is not on any blood thinners. Able to answer questions appropiately. no blurry vision or slurred speech Nurse Triage Disposition (If call is from [facility], [facility] nurse triage, or an [facility], the disposition is Go to ED Now ): See provider within 4 hours , mid Wednesday afernoon Downgrade: Yes Virtualist Recommended Disposition: See Provider within 24 hours, discussed symptoms of concussion and if they worsen before her appt she is to go to the ER Remove COVID19 association SIGNATURE: Nicolle Vyas DO PATIENT NAME: Emeli Herrera DATE: September 19, 2021 documented in this encounter [facility] 09-19-2021 Miscellaneous Notes Reason For Call: Head injury Outcome: Advised she be seen within 4 hours in office or ED, preferably ED. She does not want to go to an ED. Offices close in 2 hours. Gave on demand visit as a possible option if declining an ED visit. Second level triage done with Dr. Nicolle Vyas. Dr. Vyas advised patient be seen by tomorrow AM in an office if symptoms the same. Go to ED for new or worse symptoms. Conferenced her to appt center for an appt today or tomorrow AM, preferably today. If no appts use the emergency room. Care Advice: Rest, avoid exercise, limit screen time Reason for Disposition Scalp swelling, bruise or pain Headache 4/10 Golf ball sized lump on back of head Neck sore Intermittent dizziness and intermittent nausea Nurse Judgment: See Physician Within 4 Hours Answer Assessment - Initial Assessment Questions 1. MECHANISM: How did the injury happen? For falls, ask: What height did you fall from? and What surface did you fall against? Hit head on shelf today while trying to stand up 2. ONSET: When did the injury happen? (Minutes or hours ago) Hit head this AM. Symptoms started 2 hours later. Headache, mild dizziness, nausea 3. NEUROLOGIC SYMPTOMS: Was there any loss of consciousness? Are there any other neurological symptoms? Headache /10. See above 4. MENTAL STATUS: Does the person know who he is, who you are, and where he is? She is oriented to person, place or time 5. LOCATION: What part of the head was hit? Back of head 6. SCALP APPEARANCE: What does the scalp look like? Is it bleeding now? If Yes, ask: Is it difficult to stop? Lump present. No know cut 7. SIZE: For cuts, bruises, or swelling, ask: How large is it? (e.g., inches or centimeters) See above 8. PAIN: Is there any pain? If Yes, ask: How bad is it? (e.g., Scale 1-10; or mild, moderate, severe) Headache 4/10. Worse and throbs when she bend down 9. TETANUS: For any breaks in the skin, ask: When was the last tetanus booster? No cut. Advised discussion of Tetanus with a provider 10. OTHER SYMPTOMS: Do you have any other symptoms? (e.g., neck pain, vomiting) See above 11. : Is there any chance you are ? When was your last menstrual period? Denies Protocols used: HEAD [id number] documented in this encounter [facility] 09-08-2021 Instructions M Jordy Lugo PA-C - 09/08/2021 4:51 PM EDT Lamotrigine titration schedule ADULTS Monotherapy or polytherapy with other non-enzyme inducers/inhibitors Lamotrigine 25 mg pills Week Morning # of pills (25 mg/pill) Evening # of pills (25 mg/pill) Total daily dose Week 1 & 2 0 1 25 mg Week 3 & 4 1 1 50 mg Week 5 1 2 75 mg Week 6 2 2 100 mg Watch for any new skin rash, skin blisters, redness/blistering in lips or around eyes. Call us and notify in case of these adverse effects. You should be seen by a doctor if you notice these changes. If determined to be medication induced, you may need an alternate medicine. Lamotrigine (Patient Education - Adult Medication) You must carefully read the Consumer Information Use and Disclaimer below in order to understand and correctly use this information Pronunciation (rohit maldonado) Brand Names: USLaMICtal; LaMICtal ODT; LaMICtal Starter; LaMICtal XR; Subvenite; Subvenite Starter Kit-Blue; Subvenite Starter Kit-Green; Subvenite Starter Kit-Canmer Brand Names: [place]O-LamoTRIgine; Auro-LamoTRIgine; LaMICtal; LamoTRIgine-100; LamoTRIgine-150; LamoTRIgine-25; MYLAN-LamoTRIgine; PMS-LamoTRIgine; RATIO-LamoTRIgine [DSC]; TEVA-LamoTRIgine Warning All products: A very bad skin reaction (Singer-Cezar syndrome/toxic epidermal necrolysis) may happen. It can cause very bad health problems that may not go away, and sometimes . Get medical help right away if you have signs like red, swollen, blistered, or peeling skin (with or without fever); red or irritated eyes; or sores in your mouth, throat, nose, or eyes. The chance of a skin reaction is raised in children between 2 and 17 years old. It may also be raised if you take valproic acid or divalproex sodium with this drug, if you start taking this drug at too high of a dose, or if your dose is raised too fast. Skin reactions have also happened without any of these. Talk with your doctor. Most cases of skin reactions have happened within 2 to 8 weeks of starting this drug, but some show up after longer treatment like 6 months. Talk with the doctor. Extended-release tablets: This drug is not approved for use in children younger than 13 years old. Talk with the doctor. What is this drug used for? It is used to help control certain kinds of seizures. It is used to treat bipolar problems. It may be given to you for other reasons. Talk with the doctor. What do I need to tell my doctor BEFORE I take this drug? If you have an allergy to lamotrigine or any other part of this drug. If you are allergic to this drug; any part of this drug; or any other drugs, foods, or substances. Tell your doctor about the allergy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 History of Past illness Narrative* Problem Noted Date Resolved Date Knee pain 12/01/2013 09/22/2018 Other nonspecific abnormal finding 11/16/2006 11/16/2006 documented as of this encounter (statuses as of 04/22/2022) [facility] History of Past illness Narrative* Problem Noted Date Resolved Date Knee pain 12/01/2013 09/22/2018 Other nonspecific abnormal finding 11/16/2006 11/16/2006 documented as of this encounter (statuses as of 04/22/2022) [facility] History of Past illness Narrative* Problem Noted Date Resolved Date Knee pain 12/01/2013 09/22/2018 Other nonspecific abnormal finding 11/16/2006 11/16/2006 documented as of this encounter (statuses as of 05/21/2022) [place] [id number] History of Past illness Narrative* Problem Noted Date Resolved Date Knee pain 12/01/2013 09/22/2018 Other nonspecific abnormal finding 11/16/2006 11/16/2006 documented as of this encounter (statuses as of 07/08/2022) [place] [id number] History of Past illness Narrative* Problem Noted Date Resolved Date Knee pain 12/01/2013 09/22/2018 Other nonspecific abnormal finding 11/16/2006 11/16/2006 documented as of this encounter (statuses as of 08/20/2022) [facility] History of Past illness Narrative* Problem Noted Date Resolved Date Knee pain 12/01/2013 09/22/2018 Other nonspecific abnormal finding 11/16/2006 11/16/2006 documented as of this encounter (statuses as of 09/14/2022) [facility] History of Past illness Narrative* Problem Noted Date Resolved Date Knee pain 12/01/2013 09/22/2018 Other nonspecific abnormal finding 11/16/2006 11/16/2006 documented as of this encounter (statuses as of 09/22/2022) [facility] History of Past illness Narrative* Problem Noted Date Diagnosed Date Resolved Date Knee pain 12/01/2013 09/22/2018 Other nonspecific abnormal finding 11/16/2006 11/16/2006 documented as of this encounter (statuses as of 12/07/2022) [facility] History of Past illness Narrative* Problem Noted Date Diagnosed Date Resolved Date Knee pain 12/01/2013 09/22/2018 Other nonspecific abnormal finding 11/16/2006 11/16/2006 documented as of this encounter (statuses as of 12/08/2022) [facility] History of Past illness Narrative* Problem Noted Date Diagnosed Date Resolved Date Knee pain 12/01/2013 09/22/2018 Other nonspecific abnormal finding 11/16/2006 11/16/2006 documented as of this encounter (statuses as of 01/07/2023) [facility] History of Past illness Narrative* Problem Noted Date Diagnosed Date Resolved Date Knee pain 12/01/2013 09/22/2018 Other nonspecific abnormal finding 11/16/2006 11/16/2006 documented as of this encounter (statuses as of 01/07/2023) [facility] History of Past illness Narrative* Problem Noted Date Diagnosed Date Resolved Date Knee pain 12/01/2013 09/22/2018 Other nonspecific abnormal finding 11/16/2006 11/16/2006 documented as of this encounter (statuses as of 02/01/2023) [facility] History of Past illness Narrative* Problem Noted Date Diagnosed Date Resolved Date Knee pain 12/01/2013 09/22/2018 Other nonspecific abnormal finding 11/16/2006 11/16/2006 documented as of this encounter (statuses as of 02/13/2023) [facility] History of Past illness Narrative* Problem Noted Date Diagnosed Date Resolved Date Knee pain 12/01/2013 09/22/2018 Other nonspecific abnormal finding 11/16/2006 11/16/2006 documented as of this encounter (statuses as of 04/20/2023) [facility] History of Past illness Narrative* Problem Noted Date Diagnosed Date Resolved Date Knee pain 12/01/2013 09/22/2018 Other nonspecific abnormal finding 11/16/2006 11/16/2006 documented as of this encounter (statuses as of 04/21/2023) [facility] History of Past illness Narrative* Problem Noted Date Diagnosed Date Resolved Date Knee pain 12/01/2013 09/22/2018 Other nonspecific abnormal finding 11/16/2006 11/16/2006 documented as of this encounter (statuses as of 04/27/2023) [facility] Diagnosis Lung nodules Other nonspecific abnormal finding of lung field [facility] Lung nodules Other nonspecific abnormal finding of lung field [facility] encounter [facility] Diagnosis Migraine with aura, not intractable, without status migrainosus documented [facility] encounter [facility] Diagnosis Migraine with aura, not intractable, without status migrainosus [facility] Diagnosis Migraine with aura, not intractable, without status migrainosus- Primary Bipolar 1 disorder (HCC) Bipolar I disorder, most recent episode (or current) unspecified PTSD (post-traumatic stress disorder) Posttraumatic stress disorder Schizoaffective disorder, bipolar type (HCC) Schizoaffective disorder, unspecified condition [facility] encounter [facility] Diagnosis Closed head injury without loss of consciousness, initial encounter- Primary Hematoma of occipital region of scalp Concussion without loss of consciousness, initial encounter Migraine with aura, not intractable, without status migrainosus Bipolar 1 disorder (HCC) Bipolar I disorder, most recent episode (or current) unspecified PTSD (post-traumatic stress disorder) Posttraumatic stress disorder Schizoaffective disorder, bipolar type (HCC) Schizoaffective disorder, unspecified condition Lung nodules Other nonspecific abnormal finding of lung field [facility] encounter [facility] Diagnosis Migraine with aura, not intractable, without status migrainosus Bipolar 1 disorder (HCC) Bipolar I disorder, most recent episode (or current) unspecified PTSD (post-traumatic stress disorder) Posttraumatic stress disorder Schizoaffective disorder, bipolar type (HCC) Schizoaffective disorder, unspecified condition [facility] Diagnosis PTSD (post-traumatic stress disorder) Posttraumatic stress disorder Bipolar 1 disorder (HCC) Bipolar I disorder, most recent episode (or current) unspecified Schizoaffective disorder, bipolar type (HCC) Schizoaffective disorder, unspecified condition [facility] Diagnosis Suspected COVID-19 virus infection- Primary [facility] Diagnosis Migraine with aura, not intractable, without status migrainosus [facility] Diagnosis Bipolar 1 disorder (HCC) Bipolar I disorder, most recent episode (or current) unspecified PTSD (post-traumatic stress disorder) Posttraumatic stress disorder Schizoaffective disorder, bipolar type (HCC) Schizoaffective disorder, unspecified condition [facility] Diagnosis Migraine with aura, not intractable, without status migrainosus documented [facility] Diagnosis Bipolar 1 disorder (HCC)- Primary Bipolar I disorder, most recent episode (or current) unspecified Migraine with aura, not intractable, without status migrainosus DDD (degenerative disc disease), cervical Degeneration of cervical intervertebral disc Lumbar spondylosis Lumbosacral spondylosis without myelopathy Schizoaffective disorder, bipolar type (HCC) Schizoaffective disorder, unspecified condition Elevated glucose Other abnormal glucose documented [facility] this encounter [facility] Diagnosis Migraine with aura, not intractable, without status migrainosus- Primary Migraine without aura and with status migrainosus, not intractable Migraine without aura, without mention of intractable migraine with status migrainosus Chronic tension-type headache, intractable Chronic tension type headache Lumbar spondylosis Lumbosacral spondylosis without myelopathy DDD (degenerative disc disease), cervical Degeneration of cervical intervertebral disc Bipolar 1 disorder (HCC) Bipolar I disorder, most recent episode (or current) unspecified PTSD (post-traumatic stress disorder) Posttraumatic stress disorder Schizoaffective disorder, bipolar type (HCC) Schizoaffective disorder, unspecified condition Smoker Tobacco use disorder Lung nodules Other nonspecific abnormal finding of lung field Encounter for immunization Need for other specified prophylactic vaccination against single bacterial disease Somatic dysfunction of cervical region Nonallopathic lesion of cervical region, not elsewhere classified [facility] Acute otitis media, right- Primary Unspecified otitis media Otalgia, right ear [facility] Diagnosis Migraine with aura, not intractable, without status migrainosus [facility] Diagnosis Other acute nonsuppurative otitis media of right ear, recurrence not specified- Primary [facility] Diagnosis De Quervain's syndrome (tenosynovitis)- Primary Radial styloid tenosynovitis Right non-suppurative otitis media Nonsuppurative otitis media, not specified as acute or chronic [facility] Diagnosis Migraine with aura, not intractable, without status migrainosus [facility] Diagnosis Migraine with aura, not intractable, without status migrainosus [facility] Diagnosis Migraine with aura, not intractable, without status migrainosus [facility] Encounter for screening mammogram for [facility] cancer [facility] Diagnosis DDD (degenerative disc disease), cervical Degeneration of cervical intervertebral disc Lumbar spondylosis Lumbosacral spondylosis without myelopathy Migraine with aura, not intractable, without status migrainosus [facility] Diagnosis Migraine with aura, not intractable, without status migrainosus [facility] Diagnosis Acute cough- Primary Influenza-like illness Influenza with other respiratory manifestations [facility] Diagnosis Migraine with aura, not intractable, without status migrainosus [facility] Diagnosis Acute otitis externa of right ear, unspecified type- Primary [facility] Diagnostic Procedure Only (Routine) - Pending Review Specialty Diagnoses / Procedures Referred By Claire t Referred To Contact [facility] Diagnoses Encounter for screening mammogram for breast cancer Procedures DELLA SCREENING SCREENING MAMMOGRAPHY BI 2-VIEW BREAST INC CAD Khalif Armijo MD [address] [place] [address] [facility] [address] [place] [address] Referral ID Status Reason Start Date Expiration Date Visits Requested Visits Authorized [id number] Pending Review Auto-Generat ed Referral 09/09/2022 10/09/2023 1 1 [facility] Summary Purpose Family History No Family History Records FoundNo Family History Records FoundNo Family History Records Found Advance Directives No Advanced Directives Records FoundDocuments on File Type Date Recorded Patient Continuous Improvement Manager Expl anation Advance Directive(s) 12/13/2017 5:52 PM Documents on File Type Date Recorded Patient Continuous Improvement Manager Expl anation Advance Directive(s) 12/13/2017 5:52 PM Reason for Referral Specialty Diagnoses / Procedures Referred By Claire t Referred To Contact CT IMAGING Diagnoses Lung nodules Procedures CT CHEST WO IVCON DIAGNOSTIC COMPUTED TOMOGRAPHY THORAX W/O CNTRST Khalif Armijo MD [address] [place] [address] Ct Imaging Referral ID Status Reason Start Date Expiration Date Visits Requested Visits Authorized [id number] Pending Review Auto-Generat ed Referral 07/24/2021 08/23/2022 1 1 Referral ID Status Reason Start Date Expiration Date Visits Requested Visits Authorized [id number] Pending Review Auto-Generat ed Referral 08/07/2022 09/06/2022 1 1 Specialty Diagnoses / Procedures Referred By Juliac t Referred To Contact Pain Management Diagnoses DDD (degenerative disc disease), cervical Lumbar spondylosis Procedures CONSULT TO PAIN MGT OFFICE/OUTPATIENT [facility] 60-74 MINUTES Rudy Lugo PA-C [address] [place] [address] Referral ID Status Reason Start Date Expiration Date Visits Requested Visits Authorized [id number] Pending Review PCP Requested Referral 2 02/19/2023 1 1 Specialty Diagnoses / Procedures Referred By Contac t Referred To Contact Orthopedics Diagnoses De Quervain's syndrome (tenosynovitis) Procedures CONSULT TO ORTHOPAEDICS OFFICE/OUTPATIENT [facility] HIGH MDM 60-74 MINUTES Bruna Parker, RATE ANALYST.ASSISTANT WRESTLING COACH [address] [place] [address] Referral ID Status Reason Start Date Expiration Date Visits Requested Visits Authorized [id number] Pending Review PCP Requested Referral 2 04/22/2023 1 1 Health Concerns Infection Onset Date Last Indicated Resolved Time COVID-19 Rule-Out 11/22/2021 11/22/2021 Infection Onset Date Last Indicated Resolved Time COVID-19 Rule-Out 11/22/2021 11/22/2021 11/23/2021 7:34 AM EDT Additional Source Comments INFORMATION SOURCE (unrecogn ized section and content) DATE CREATED AUTHOR AUTHOR'S ORGANIZ ATION 07/31/2022 [facility] DATE CREATED AUTHOR AUTHOR'S ORGANIZ ATION 05/29/2023 [facility] Source Comments (unrecognize d section and content) In the event this informatio n is protected by the Federal Confidentiality of Alcohol and Drug Abuse Patient Records regulations: The Federal rules restrict any use of the information to criminally investigate or prosecute any alcohol or drug abuse patient.[facility] the event this information is protected by the Federal Confidentiality of Alcohol and Drug Abuse Patient Records regulations: The Federal rules restrict any use of the information to criminally investigate or prosecute any alcohol or drug abuse patient.[facility] the event this information is protected by the Federal Confidentiality of Alcohol and Drug Abuse Patient Records regulations: The Federal rules restrict any use of the information to criminally investigate or prosecute any alcohol or drug abuse patient.[facility] the event this information is protected by the Federal Confidentiality of Alcohol and Drug Abuse Patient Records regulations: The Federal rules restrict any use of the information to criminally investigate or prosecute any alcohol or drug abuse patient.[facility] the event this information is protected by the Federal Confidentiality of Alcohol and Drug Abuse Patient Records regulations: The Federal rules restrict any use of the information to criminally investigate or prosecute any alcohol or drug abuse patient.[facility] the event this information is protected by the Federal Confidentiality of Alcohol and Drug Abuse Patient Records regulations: The Federal rules restrict any use of the information to criminally investigate or prosecute any alcohol or drug abuse patient.[facility] the event this information is protected by the Federal Confidentiality of Alcohol and Drug Abuse Patient Records regulations: The Federal rules restrict any use of the information to criminally investigate or prosecute any alcohol or drug abuse patient.[facility] the event this information is protected by the Federal Confidentiality of Alcohol and Drug Abuse Patient Records regulations: The Federal rules restrict any use of the information to criminally investigate or prosecute any alcohol or drug abuse patient.[facility] the event this information is protected by the Federal Confidentiality of Alcohol and Drug Abuse Patient Records regulations: The Federal rules restrict any use of the information to criminally investigate or prosecute any alcohol or drug abuse patient.[facility] HospitalIn the event this information is protected by the Federal Confidentiality of Alcohol and Drug Abuse Patient Records regulations: The Federal rules restrict any use of the information to criminally investigate or prosecute any alcohol or drug abuse patient.[facility]In the event this information is protected by the Federal Confidentiality of Alcohol and Drug Abuse Patient Records regulations: The Federal rules restrict any use of the information to criminally investigate or prosecute any alcohol or drug abuse patient.[facility]In the event this information is protected by the Federal Confidentiality of Alcohol and Drug Abuse Patient Records regulations: The Federal rules restrict any use of the information to criminally investigate or prosecute any alcohol or drug abuse patient.[facility]In the event this information is protected by the Federal Confidentiality of Alcohol and Drug Abuse Patient Records regulations: The Federal rules restrict any use of the information to criminally investigate or prosecute any alcohol or drug abuse patient.[facility] HospitalIn the event this information is protected by the Federal Confidentiality of Alcohol and Drug Abuse Patient Records regulations: The Federal rules restrict any use of the information to criminally investigate or prosecute any alcohol or drug abuse patient.[facility] HospitalIn the event this information is protected by the Federal Confidentiality of Alcohol and Drug Abuse Patient Records regulations: The Federal rules restrict any use of the information to criminally investigate or prosecute any alcohol or drug abuse patient.[facility] HospitalIn the event this information is protected by the Federal Confidentiality of Alcohol and Drug Abuse Patient Records regulations: The Federal rules restrict any use of the information to criminally investigate or prosecute any alcohol or drug abuse patient.[facility] HospitalIn the event this information is protected by the Federal Confidentiality of Alcohol and Drug Abuse Patient Records regulations: The Federal rules restrict any use of the information to criminally investigate or prosecute any alcohol or drug abuse patient.[facility] HospitalIn the event this information is protected by the Federal Confidentiality of Alcohol and Drug Abuse Patient Records regulations: The Federal rules restrict any use of the information to criminally investigate or prosecute any alcohol or drug abuse patient.[facility] HospitalIn the event this information is protected by the Federal Confidentiality of Alcohol and Drug Abuse Patient Records regulations: The Federal rules restrict any use of the information to criminally investigate or prosecute any alcohol or drug abuse patient.[facility] HospitalIn the event this information is protected by the Federal Confidentiality of Alcohol and Drug Abuse Patient Records regulations: The Federal rules restrict any use of the information to criminally investigate or prosecute any alcohol or drug abuse patient.[facility] HospitalIn the event this information is protected by the Federal Confidentiality of Alcohol and Drug Abuse Patient Records regulations: The Federal rules restrict any use of the information to criminally investigate or prosecute any alcohol or drug abuse patient.[facility] HospitalIn the event this information is protected by the Federal Confidentiality of Alcohol and Drug Abuse Patient Records regulations: The Federal rules restrict any use of the information to criminally investigate or prosecute any alcohol or drug abuse patient.[facility] HospitalIn the event this information is protected by the Federal Confidentiality of Alcohol and Drug Abuse Patient Records regulations: The Federal rules restrict any use of the information to criminally investigate or prosecute any alcohol or drug abuse patient.[facility] HospitalIn the event this information is protected by the Federal Confidentiality of Alcohol and Drug Abuse Patient Records regulations: The Federal rules restrict any use of the information to criminally investigate or prosecute any alcohol or drug abuse patient.[facility] HospitalIn the event this information is protected by the Federal Confidentiality of Alcohol and Drug Abuse Patient Records regulations: The Federal rules restrict any use of the information to criminally investigate or prosecute any alcohol or drug abuse patient.[facility] HospitalIn the event this information is protected by the Federal Confidentiality of Alcohol and Drug Abuse Patient Records regulations: The Federal rules restrict any use of the information to criminally investigate or prosecute any alcohol or drug abuse patient.[facility] HospitalIn the event this information is protected by the Federal Confidentiality of Alcohol and Drug Abuse Patient Records regulations: The Federal rules restrict any use of the information to criminally investigate or prosecute any alcohol or drug abuse patient.[facility] HospitalIn the event this information is protected by the Federal Confidentiality of Alcohol and Drug Abuse Patient Records regulations: The Federal rules restrict any use of the information to criminally investigate or prosecute any alcohol or drug abuse patient.[facility] HospitalIn the event this information is protected by the Federal Confidentiality of Alcohol and Drug Abuse Patient Records regulations: The Federal rules restrict any use of the information to criminally investigate or prosecute any alcohol or drug abuse patient.[facility] HospitalIn the event this information is protected by the Federal Confidentiality of Alcohol and Drug Abuse Patient Records regulations: The Federal rules restrict any use of the information to criminally investigate or prosecute any alcohol or drug abuse patient.[facility] HospitalIn the event this information is protected by the Federal Confidentiality of Alcohol and Drug Abuse Patient Records regulations: The Federal rules restrict any use of the information to criminally investigate or prosecute any alcohol or drug abuse patient.[facility] HospitalIn the event this information is protected by the Federal Confidentiality of Alcohol and Drug Abuse Patient Records regulations: The Federal rules restrict any use of the information to criminally investigate or prosecute any alcohol or drug abuse patient.[facility] HospitalIn the event this information is protected by the Federal Confidentiality of Alcohol and Drug Abuse Patient Records regulations: The Federal rules restrict any use of the information to criminally investigate or prosecute any alcohol or drug abuse patient.[facility] HospitalIn the event this information is protected by the Federal Confidentiality of Alcohol and Drug Abuse Patient Records regulations: The Federal rules restrict any use of the information to criminally investigate or prosecute any alcohol or drug abuse patient.[facility] HospitalIn the event this information is protected by the Federal Confidentiality of Alcohol and Drug Abuse Patient Records regulations: The Federal rules restrict any use of the information to criminally investigate or prosecute any alcohol or drug abuse patient.[facility] HospitalIn the event this information is protected by the Federal Confidentiality of Alcohol and Drug Abuse Patient Records regulations: The Federal rules restrict any use of the information to criminally investigate or prosecute any alcohol or drug abuse patient.[facility] HospitalIn the event this information is protected by the Federal Confidentiality of Alcohol and Drug Abuse Patient Records regulations: The Federal rules restrict any use of the information to criminally investigate or prosecute any alcohol or drug abuse patient.[facility] HospitalIn the event this information is protected by the Federal Confidentiality of Alcohol and Drug Abuse Patient Records regulations: The Federal rules restrict any use of the information to criminally investigate or prosecute any alcohol or drug abuse patient.[facility] HospitalIn the event this information is protected by the Federal Confidentiality of Alcohol and Drug Abuse Patient Records regulations: The Federal rules restrict any use of the information to criminally investigate or prosecute any alcohol or drug abuse patient.[facility] HospitalIn the event this information is protected by the Federal Confidentiality of Alcohol and Drug Abuse Patient Records regulations: The Federal rules restrict any use of the information to criminally investigate or prosecute any alcohol or drug abuse patient.[facility] HospitalIn the event this information is protected by the Federal Confidentiality of Alcohol and Drug Abuse Patient Records regulations: The Federal rules restrict any use of the information to criminally investigate or prosecute any alcohol or drug abuse patient.[facility] HospitalIn the event this information is protected by the Federal Confidentiality of Alcohol and Drug Abuse Patient Records regulations: The Federal rules restrict any use of the information to criminally investigate or prosecute any alcohol or drug abuse patient.[facility] HospitalIn the event this information is protected by the Federal Confidentiality of Alcohol and Drug Abuse Patient Records regulations: The Federal rules restrict any use of the information to criminally investigate or prosecute any alcohol or drug abuse patient.[facility] HospitalIn the event this information is protected by the Federal Confidentiality of Alcohol and Drug Abuse Patient Records regulations: The Federal rules restrict any use of the information to criminally investigate or prosecute any alcohol or drug abuse patient.[facility] Reason for Visit (unrecogniz ed section and content) Specialty Diagnoses / Procedures Referred By Contac t Referred To Contact [facility]ILY MEDICINE Diagnoses [facility]up [facility] [address] [place] [address] Referral ID Status Reason Start Date Expiration Date Visits Requested Visits Authorized [id number] Authorized Financial Clearance Required - Self Pay Patient Cleared - Qualified HCAP/[id number] 02/13/2022 05/14/2022 [address] Specialty Diagnoses / Procedures Referred By Contac t Referred To Contact Family Practice / [facility] Diagnoses cold like symptoms/fever Procedures URGENT CARE Self [place]io [place], [facility] [address] [place] [address] Referral ID Status Reason Start Date Expiration Date Visits Requested Visits Authorized [id number] Authorized Financial Clearance Required - Self Pay Patient Cleared - Qualified HCAP/501/FA 05/13/2021 08/11/2021 99 99 Reason Comments Results Reason Onset Date Comments Erroneous encounter-disregard 08/20/2021 Reason Onset Date Comments Refill Request 09/01/2021 Specialty Diagnoses / Procedures Referred By Contac t Referred To Contact Family Practice / FAMILY MEDICINE Diagnoses coping issues Procedures 4C EST Self Rudy Lugo PA-C [address] [place] [address] Referral ID Status Reason Start Date Expiration Date Visits Requested Visits Authorized [id number] Authorized Financial Clearance Required - Self Pay Patient Cleared - Qualified HCAP/[id number] 09/08/2021 12/07/2021 99 99 Reason Comments Head Injury Reason Onset Date Comments Refill Request 09/22/2021 Reason Comments Recheck Specialty Diagnoses / Procedures Referred By Contac t Referred To Contact Family Practice / FAMILY MEDICINE Diagnoses coping issues Procedures 4C EST Self Rudy Lugo PA-C [address] [place] [address] Reason Comments Appointment Reason Onset Date Comments Refill Request 10/27/2021 Reason Comments Medication Problem Reason Onset Date Comments Refill Request 11/05/2021 Reason Comments Head Congestion cough, vomiting and bodyaches, right ear pain x 3 days Specialty Diagnoses / Procedures Referred By Contac t Referred To Contact [facility] Diagnoses possible flu - took home COVID test it was positive Procedures possible flu - took home COVID test it was positive Cole Frazier MD [address] [place] [address] [facility] [address] [address] [place] [address] Referral ID Status Reason Start Date Expiration Date Visits Requested Visits Authorized [id number] Pending Review Financial Clearance Required - Self Pay 11/22/2021 02/20/2022 1 1 Reason Comments Results Reason Comments Refill Request Reason Onset Date Comments Refill Request 01/01/2022 Reason Onset Date Comments Refill Request 01/15/2022 Reason Comments Back Pain Pain (Shoulder Pain) Numbness Toes Reason Comments Follow Up Neck pain, headaches Specialty Diagnoses / Procedures Referred By Claire pickard Referred To Contact FAMILY MEDICINE Diagnoses followup Procedures follow up Self [facility] [address] [place] [address] Reason Comments Ear Pain R ear pain, loss of hearing x5 days Reason Onset Date Comments Refill Request 03/21/2022 Reason Onset Date Comments Refill Request 04/08/2022 Reason Comments Ear Problem right ear pain and p ressure x couple weeks Reason Comments Patient Question Reason Onset Date Comments Refill Request 05/21/2022 Reason Onset Date Comments Refill Request 07/07/2022 Reason Onset Date Comments Refill Request 09/21/2022 Reason Comments Medication Request Reason Onset Date Comments Refill Request 12/07/2022 Reason Comments Cough Cough, congestion, b odyaches, SOB and fatigue x 2 days Reason Comments Breathing Problem Reason Onset Date Comments Refill Request 02/12/2023 Reason Onset Date Comments Refill Request 04/19/2023 Reason Comments Nausea & Vomiting NVD, head and chest congestion x5 days, R ear muffled hearing Care Teams (unrecognized sec tion and content) Mechanical Adjuster Relationship Specialty Start Date End Date Khalif Armijo MD [address] [place], [place] [id number] PCP - General Family Practice 07/10/13 Mechanical Adjuster Relationship Specialty Start Date End Date Khalfi Armijo MD [address] [facility] [address] PCP - General Family Practice 07/10/13 Mechanical Adjuster Relationship Specialty Start Date End Date Khalif Armijo MD [address] [facility] [place] [address] PCP - General Family Practice 07/10/13 Mechanical Adjuster Relationship Specialty Start Date End Date Khalif Armijo MD [address] [facility] [address] PCP - General Family Practice 07/10/13 Mechanical Adjuster Relationship Specialty Start Date End Date Khalif Armijo MD [facility] [facility] [address] PCP - General Family Practice 07/10/13 Mechanical Adjuster Relationship Specialty Start Date End Date Khalif Armijo MD [facility] [address] PCP - General Family Practice 07/10/13 Mechanical Adjuster Relationship Specialty Start Date End Date Khalif Armijo MD [address] [facility] [place] [address] PCP - General Family Practice 07/10/13 Mechanical Adjuster Relationship Specialty Start Date End Date Khalif Armijo MD [facility] [place] [address] PCP - General Family Practice 07/10/13 Mechanical Adjuster Relationship Specialty Start Date End Date Khalif Armijo MD [address] [facility] [place] [address] PCP - General Family Practice 07/10/13 Mechanical Adjuster Relationship Specialty Start Date End Date Khalif Armijo MD [facility] [place] [address] PCP - General Family Practice 07/10/13 Mechanical Adjuster Relationship Specialty Start Date End Date Khalif Armijo MD [address] [facility] [place] [address] PCP - General Family Practice 07/10/13 Mechanical Adjuster Relationship Specialty Start Date End Date Khalif Armijo MD [address] [facility] [place] [address] PCP - General Family Practice 07/10/13 Mechanical Adjuster Relationship Specialty Start Date End Date Khalif Armijo MD [address] [facility] [place] [address] PCP - General Family Practice 07/10/13 Mechanical Adjuster Relationship Specialty Start Date End Date Khalif Armijo MD [address] [facility] [place] [address] PCP - General Family Medicine 07/10/13 Mechanical Adjuster Relationship Specialty Start Date End Date Khalif Armijo MD [address] [facility] [place] [address] PCP - General Family Medicine 07/10/13 Mechanical Adjuster Relationship Specialty Start Date End Date Khalif Armijo MD [address] [facility] [place] [address] PCP - General Family Medicine 07/10/13 Mechanical Adjuster Relationship Specialty Start Date End Date Khalif Armijo MD [address] [facility] [place] [address] PCP - General Family Medicine 07/10/13 Mechanical Adjuster Relationship Specialty Start Date End Date Khalif Armijo MD [address] [facility] [place] [address] PCP - General Family Medicine 07/10/13 Mechanical Adjuster Relationship Specialty Start Date End Date Khalif Armijo MD [address] [facility] [place] [address] PCP - General Family Medicine 07/10/13 Mechanical Adjuster Relationship Specialty Start Date End Date Khalif Armijo MD [address] [facility] [place] [address] PCP - General Family Medicine 07/10/13 Mechanical Adjuster Relationship Specialty Start Date End Date Khalif Armijo MD [address] [facility] [place] [address] PCP - General Family Medicine 07/10/13 Mechanical Adjuster Relationship Specialty Start Date End Date Khalif Armijo MD [address] [facility] [place] [address] PCP - General Family Medicine 07/10/13 Mechanical Adjuster Relationship Specialty Start Date End Date Khalif Armijo MD [address] [facility] [place] [address] PCP - General Family Medicine 07/10/13 Mechanical Adjuster Relationship Specialty Start Date End Date Khailf Armijo MD [address] [facility] [place] [address] PCP - General Family Medicine 07/10/13 Mechanical Adjuster Relationship Specialty Start Date End Date Khalif Armijo MD [address] [facility] [place] [address] PCP - General Family Medicine 07/10/13 Mechanical Adjuster Relationship Specialty Start Date End Date Khalif Armijo MD [address] [facility] [place] [address] PCP - General Family Medicine 07/10/13 Mechanical Adjuster Relationship Specialty Start Date End Date Khalif Armijo MD [address] [facility] [place] [address] PCP - General Family Medicine 07/10/13 Mechanical Adjuster Relationship Specialty Start Date End Date Khalif Armijo MD [address] [facility] [place] [address] PCP - General Family Medicine 07/10/13 Mechanical Adjuster Relationship Specialty Start Date End Date Khalif Armijo MD [address] [place] [address] PCP - General [facility] 07/10/13 Mechanical Adjuster Relationship Specialty Start Date End Date Khalif Armijo MD [address] [place] [address] PCP - General Family [facility] 07/10/13 FOR RECORDS PERTAINING TO PATIENTS WHO ARE OR HAVE BEEN ENROLLED IN A CHEMICAL DEPENDENCY/SUBSTANCEABUSE PROGRAM, SOME INFORMATION MAY BE OMITTED. This clinical summary was aggregated from multiple sources. Caution should be exercised in using it in the provision of clinical care. This summary normalizes information from multiple sources, and as a consequence, information in this document may materially change the coding, format and clinical context of patient data. In addition, data may be omitted in some cases. CLINICAL DECISIONS SHOULD BE BASED ON THE PRIMARY CLINICAL RECORDS. [facility] [employer] [facility]. provides no warranty or guarantee of the accuracy or completeness of information in this document.
[2023-06-03] MEDS: HYDROcodone Bitartrate/Apap 5/325 Tablet PO (23:43)
== END 2023-06-04 00:32 | disposition home or self-care (01) ==
PROVIDERS: Emergency Provider Emergency Medicine; PCP Family Medicine; Visit Provider Emergency Medicine
DX: S63.92XA Sprain of unspecified part of left wrist and hand, initial encounter (principal); S30.0XXA Contusion of lower back and pelvis, initial encounter; F17.210 Nicotine dependence, cigarettes, uncomplicated; W18.30XA Fall on same level, unspecified, initial encounter
CPT/HCPCS: 72100; 72220; 73110; 99283

== ENCOUNTER 2023-06-14 09:52 | Emergency (ER) | payer BC, SELFPAY ==
[2023-06-14 09:53] VITALS: BP 158/111; PULSE 99; RESP 16; TEMP 36.3; O2SAT 100; BMI 30.6
--- NOTE | 2023-06-14 10:15 | EDS_ITS ---
HPI HPI - GI History of Present Illness Chief Complaint: Flank Pain Narrative Narrative: 47-year-old female past medical history of kidney stones, and last had ureterolithiasis last year, presents with left flank pain that began yesterday evening. She states it is getting worse and she started having hematuria today. Took ibuprofen without relief. She was able to ambulate here from her job at [email or web address]. She has history of chronic back pain as well. She denies any fevers or chills. She complains of swelling in her back and urinary frequency as well. She is currently wearing a splint on her left wrist. She is here because of the left flank pain and additionally she states that she passed 3 or 4 kidney stones last evening that were very small, but is still having left flank pain. [facility] Medical History Bipolar 1 disorder Fibromyalgia History of venous thromboembolism Hypokalemia Kidney stones Migraines Psoriasis Psoriasis Home Medications baclofen 10 mg tablet 10 mg PO TID BACK PAIN 04/27/19 [History Last Taken 02/01/23] sumatriptan succinate 100 mg tablet 100 mg PO .X1 PRN 04/26/20 [History Last Taken 01/31/23] acetaminophen 325 mg tablet (Aphen) 650 mg PO Q4H PRN pain 02/01/23 [History Last Taken 02/01/23] doxycycline hyclate 100 mg tablet 100 mg PO BID #10 tabs 02/01/23 [Rx Last Taken Unknown] gabapentin 600 mg tablet 600 mg PO Q8H 02/01/23 [History Last Taken 02/01/23] potassium chloride 10 mEq capsule,extended release 20 meq (2 x 10 mEq) PO DAILY 5 days #10 caps 02/01/23 [Rx Last Taken Unknown] hydrocodone-acetaminophen 5-325mg 5mg-325mg 1 tab PO Q6H PRN pain 3 days #12 tabs 06/14/23 [Rx Last Taken Unknown] ketorolac 10 mg tablet 10 mg PO TID 5 days #15 tabs 06/14/23 [Rx Last Taken Unknown] sulfamethoxazole 800 mg-trimethoprim 160 mg tablet (Bactrim DS) 1 tab PO BID #14 tabs 06/14/23 [Rx Last Taken Unknown] tamsulosin 0.4 mg capsule (Flomax) 0.4 mg PO QHS #10 caps 06/14/23 [Rx Last Taken Unknown] Allergy/AdvReac Type Severity Reaction Status Date / Time Cephalosporins Allergy Severe Anaphylaxis Verified 06/14/23 09:54 adhesive tape Allergy Swelling Verified 06/14/23 09:54 Penicillins Allergy Anaphylaxis Verified 06/14/23 09:54 bupropion [From Wellbutrin] AdvReac Other Verified 06/14/23 09:54 diphenhydramine HCl AdvReac IV route Verified 06/14/23 09:54 [From Benadryl] causes panic attack. can take po Surgical History H/O: hysterectomy Social History Smoking Status: Current every day smoker tobacco type: cigarettes substance use type: does not use ROS ROS ED ROS Narrative Constitutional: No fever, no chills. HEENT: No sore throat. No neck pain. No loss of vision. No rhinorrhea. Cardiovascular: No chest pain. No palpitations. No pedal edema. Respiratory: No cough, no shortness of breath. Abdominal: No abdominal pain. No nausea. No vomiting. Genitourinary: No dysuria. Positive hematuria. Left low back pain and flank pain. Musculoskeletal: No myalgias. No arthralgias. Neurologic: No headaches. No dizziness. No lightheadedness. Skin: No rash. No change in color. Psychiatric: No depression. No anxiety. EXAM Physical Exam Narrative Exam Narrative: Afebrile. Vital signs noted. HEENT: Normocephalic. Atraumatic. PERRL, EOMI. Neck soft and supple. No point tenderness or step off. Cardiovascular: Regular rate and rhythm. No murmurs, rubs, or gallops appreciated. Respiratory: No tachypnea. Lungs clear to auscultation bilaterally. Gastrointestinal: Abdomen soft, nontender, with normoactive bowel sounds. No rebound or guarding. Neurological: Awake. Alert. Nonfocal, nonlateralizing. Skin: No rash. Normal color. No pallor. Musculoskeletal: No pedal edema. Full range of motion extremities. No vertebral point tenderness or bony step-off. Psychiatric: Tearful on examination. Const Vital Signs: 06/14/23 09:53 Temperature 97.3 F L Temperature Source Temporal Pulse Rate 99 Respiratory Rate 16 Blood Pressure 158/111 H Blood Pressure Mean 126 Pulse Ox 100 Oxygen Delivery Method Room Air MDM MDM MDM Narrative Medical decision making narrative: In the differential diagnosis is ureterolithiasis versus pyelonephritis versus musculoskeletal back pain. Comprehensive workup was pursued. Initially she was given Toradol and IV fluids. I do feel CT imaging is indicated to help rule out ureterolithiasis. I have low suspicion for any diverticulitis causing her left flank pain as the history and physical does not support this. I reviewed her laboratory work and she has normal white count of 6.3, hemoglobin normal at 13.1, hematocrit 38.5, platelet count normal at 247. Sodium is normal at 138 and potassium 3.6 with chloride 106. BUN normal at 15 and creatinine 0.77. Glucose slightly elevated at 109 with normal anion gap of 7. Prior to full review of her chart, serum was obtained and was read as positive. I reviewed her prior laboratory work and she had this back in 2020. However, patient relates history that she has had a hysterectomy. I also reviewed her prior ED visits, and she had eloped prior to her knowing that she had a positive test, but she states that as she has had a hysterectomy, she has had workup and they are unsure as to why her serum test turns positive. She was administered Toradol intravenously and CT of the abdomen and pelvis without contrast was obtained and reviewed. I reviewed the radiology report which shows that there is a 3 mm ureteral stone at the ureterovesicular junction causing hydronephrosis. Review of her urinalysis does show 10-25 WBCs with 25- 50 RBCs. This was sent for culture. I do not feel that she is septic as she has no fever or elevated white count and is not tachycardic here. She was given her first dose of Bactrim. She was discussed with the urologist on-call, Dr. Cara Doshi. Strict return instructions were reviewed with the patient, and she was told that she could get sick from obstructing stone with UTI. She was written a prescription for Bactrim, for Flomax, Toradol, and a short course of narcotic pain medication. I stressed the importance of follow-up with urology regarding her 3 mm stone. I do not feel she requires observation or admission at this time. I feel she be discharged to follow-up. Disposition is discharged home in stable condition. History & Record Review Discussion w/independent historian: Patient Additional record(s) reviewed:: Prior ED visit and Prior labs Lab Data Attestation: I reviewed the patient's lab results. Labs: Laboratory Results - last 24 hr 06/14/23 06/14/23 10:25 10:45 WBC 6.3 RBC 4.07 L Hgb 13.1 Hct 38.5 MCV 94.6 MCH 32.2 H MCHC 34.0 RDW Std Deviation 46.1 H RDW Coeff of Flavia 13.2 Plt Count 247 MPV 10.4 Immature Gran % (Auto) 0.200 Neut % (Auto) 53.9 Lymph % (Auto) 36.7 [place] % (Auto) 7.4 Eos % (Auto) 1.3 Baso % (Auto) 0.5 Absolute Neuts (auto) 3.4 Absolute Lymphs (auto) 2.32 Nucleated RBC % 0 Sodium 138 Potassium 3.6 Chloride 106 Carbon Dioxide 25.0 Anion Gap 7 BUN 15 Creatinine 0.77 Estim Creat Clear Calc 112.69 Est GFR (MDRD) Af Amer 104 Est GFR (MDRD) Non-Af 86 BUN/Creatinine Ratio 19.5 Glucose 109 H Calcium 9.1 Serum , Qual POSITIVE H Urine Color Yellow Urine Clarity Sl. Cloudy Urine pH 5.0 Ur Specific [place] 1.025 Urine Protein 30 H Urine Glucose (UA) Normal Urine Ketones Negative Urine Occult Blood 250 H Urine Nitrite Negative Urine Bilirubin Negative Urine Urobilinogen 1 H Ur Leukocyte Esterase 100 H Urine RBC 25-50 SEEN Urine WBC 10-25 SEEN Ur Squamous Epith Cells 0-5 SEEN Urine Bacteria 1+ Urine Mucus 0 SEEN Radiography Diagnostic Testing: Clinical Impression(s) from Imaging Studies Abdomen/Pelvis CT 06/14/23 10:55 IMPRESSION: 3 mm calculus at the left ureterovesical junction causing mild degree of the left hydronephrosis. Nonobstructive bilateral intrarenal calculi. Electronically Signed: Julio C Prasad MD at 11:21 EST , Management Discussion w/another healthcare provider: [employer] Maint[employer] (Dr. Doshi) Discharge Plan Triage Chief Complaint: Flank Pain ED Provider: Carlos Willams Dx/Rx/DC Orders Clinical Impression: UTI (urinary tract infection), Ureterolithiasis Instructions: ED Kidney Stone with Pain, ED UTIs Women Prescriptions: New sulfamethoxazole-trimethoprim [Bactrim DS] 800-160 mg tablet 1 tab PO BID Qty: 14 0RF ketorolac 10 mg tablet 10 mg PO TID 5 Days Qty: 15 0RF tamsulosin [Flomax] 0.4 mg capsule 0.4 mg PO QHS Qty: 10 0RF hydrocodone-acetaminophen 5-325 mg tablet 1 tab PO Q6H PRN (Reason: pain) 3 Days Qty: 12 0RF No Action baclofen 10 MG tablet 10 mg PO TID Patient Comments: Take 1 tablet by mouth three times daily. sumatriptan succinate 100 MG tablet 100 mg PO .X1 PRN gabapentin 600 mg tablet 600 mg PO Q8H acetaminophen [Aphen] 325 mg tablet 650 mg PO Q4H PRN (Reason: pain) doxycycline hyclate 100 mg tablet 100 mg PO BID Qty: 10 0RF potassium chloride 10 mEq capsule, extended release 20 meq PO DAILY 5 Days Qty: 10 0RF Primary Care Provider: Dionicio Armijo Referrals: Cara Doshi MD [Med Staff - Active Staff] - 3-5 Days Dionicio Armijo MD [Primary Care Provider] - Activity Restrictions/Additional Instructions: Take medications as directed. Beware of drowsiness and dizziness with Flomax and narcotic pain medication. Return with fever, increased pain, inability to take her medications, new or worsening symptoms. Disposition Disposition: Home, Self Care Discharge Date/Time: 06/14/23 12:37
[2023-06-14] MEDS: Ketorolac 15 MG/ML Vial IV (10:37)
[2023-06-14] MEDS: 0.9% Normal Saline (1000mL) 1,000 ML 250 ML IV (10:37)
--- OUTSIDE RECORDS SUMMARY | 2023-06-14 10:51 | XMS RPT_ITS | CCD ---
Author Name Unknown Address [address] [place] [address] Organization [facility] Care Team Providers Care Shuttle Buggy Operator Name Role Phone Khalif Armijo MD Primary Care Provider [phone] NO, PHYSICIAN Primary Care Unavailable MILA CLOUD [...] Attending Unavailable KHALIF ARMIJO Primary Care Unavailable Allergies Allergy Classification Reported Allergen(s) Allergy Type Date of Onset Reaction(s) Facility (20 sources) acetaminophen / HYDROcodone; Translations: [HYDROCODONE-ACETA MINOPHEN] Drug Allergy 7 GI Upset [facility] Repository (20 sources) Penicillins; Translations: [PENICILLINS] Propensity to adverse reactions to drug (disorder) 6 Unknown [facility] Repository (2 sources) OTHER; Translations: [OTHER] Propensity to adverse reactions (disorder) 6 AOF [facility] Repository (20 sources) vidaylin vitamins [Other] Propensity to adverse reactions 6 GI Upset [facility] Work Phone: (1 source) Cephalosporins (Antibiotic); Translations: [CEPHALOSPORINS] Propensity to adverse reactions to drug (disorder) 3 [facility] Repository Medications Current Medications Medication Drug Class(es) [...] initial encounter] Episodic Other lower respiratory disease (20 sources) [...] Onset: 09-21-2022 Episodic Other lower respiratory disease (1 source) [...] Date Time Vital Sign Value Performing Clinician Jama olivia 04-26-2023 13:54-0500 Body temperature 97.9 [degF] Chico Gaming APRN.CNP Work Phone: [facility] 04-26-2023 13:54-0500 Body weight 94.62 kg Chico Gaming APRN.CNP Work Phone: [facility] 04-26-2023 13:54-0500 Diastolic blood pressure 90 mm[Hg] Chico Pendlebury WASTEWATER TREATMENT ENGINEER.[employer] Work Phone: [facility] 04-26-2023 13:54-0500 Heart rate 88 /min [facility] WASTEWATER TREATMENT ENGINEER.[employer] Work Phone: [facility] 04-26-2023 13:54-0500 Respiratory rate 18 /min [facility] WASTEWATER TREATMENT ENGINEER.[employer] Work Phone: [facility] 04-26-2023 13:54-0500 SaO2% (BldA) [Mass fraction] 98 % [facility] WASTEWATER TREATMENT ENGINEER.[employer] Work Phone: [facility] 04-26-2023 13:54-0500 Systolic blood pressure 142 mm[Hg] [facility] WASTEWATER TREATMENT ENGINEER.[employer] Work Phone: [facility] 01-06-2023 15:52-0400 Body temperature 98.49 [degF] Cole Frazier MD Work Phone: [facility] 01-06-2023 15:52-0400 Body weight 95.44 kg Cole Frazier MD Work Phone: [facility] 01-06-2023 15:52-0400 Diastolic blood pressure 80 mm[Hg] Cole Frazier MD Work Phone: [facility] 01-06-2023 15:52-0400 Heart rate 86 /min Cole Frazier MD Work Phone: [facility] 01-06-2023 15:52-0400 Respiratory rate 18 /min Cole Frazier MD Work Phone: [facility] 01-06-2023 15:52-0400 SaO2% (BldA) [Mass fraction] 100 % Cole Frazier MD Work Phone: [facility] 01-06-2023 15:52-0400 Systolic blood pressure 122 mm[Hg] Cole Frazier MD Work Phone: [facility] 04-22-2022 15:33-0500 Diastolic blood pressure 82 mm[Hg] Bruna Haagen WASTEWATER TREATMENT ENGINEER.[employer] Work Phone: [facility] 04-22-2022 15:33-0500 Heart rate 82 /min Bruna Haagen WASTEWATER TREATMENT ENGINEER.[employer] Work Phone: [facility] 04-22-2022 15:33-0500 Respiratory rate 18 /min Bruna Haagen WASTEWATER TREATMENT ENGINEER.[employer] Work Phone: [facility] 04-22-2022 15:33-0500 SaO2% (BldA) [Mass fraction] 96 % Bruna Haagen WASTEWATER TREATMENT ENGINEER.[employer] Work Phone: [facility] 04-22-2022 15:33-0500 Systolic blood pressure 114 mm[Hg] Bruna Haagen WASTEWATER TREATMENT ENGINEER.[employer] Work Phone: [facility] 04-08-2022 12:56-0500 Body temperature 96.91 [degF] Callie Praisler-Wood WASTEWATER TREATMENT ENGINEER.[employer] Work Phone: [facility] 04-08-2022 12:56-0500 Body weight 95.71 kg Callie Praisler-Wood WASTEWATER TREATMENT ENGINEER.[employer] Work Phone: [facility] 04-08-2022 12:56-0500 Diastolic blood pressure 72 mm[Hg] Callie Praisler-Wood WASTEWATER TREATMENT ENGINEER.[employer] Work Phone: [facility] 04-08-2022 12:56-0500 Heart rate 88 /min Callie Praisler-Wood WASTEWATER TREATMENT ENGINEER.[employer] Work Phone: [facility] 04-08-2022 12:56-0500 Respiratory rate 16 /min Callie Praisler-Wood WASTEWATER TREATMENT ENGINEER.[employer] Work Phone: [facility] 04-08-2022 12:56-0500 SaO2% (BldA) [Mass fraction] 100 % Callie Praisler-Wood WASTEWATER TREATMENT ENGINEER.[employer] Work Phone: [facility] 04-08-2022 12:56-0500 Systolic blood pressure 122 mm[Hg] Callie Praisler-Wood WASTEWATER TREATMENT ENGINEER.[employer] Work Phone: [facility] 03-16-2022 14:47-0500 Body temperature 97.7 [degF] Ranjeet Del Rio WASTEWATER TREATMENT ENGINEER.[employer] Work Phone: [facility] 03-16-2022 14:47-0500 Body weight 92.9 kg Ranjeet Del Rio WASTEWATER TREATMENT ENGINEER.[employer] Work Phone: [facility] 03-16-2022 14:47-0500 Diastolic blood pressure 92 mm[Hg] Ranjeet Del Rio WASTEWATER TREATMENT ENGINEER.[employer] Work Phone: [facility] 03-16-2022 14:47-0500 Heart rate 82 /min Ranjeet Del Rio WASTEWATER TREATMENT ENGINEER.[employer] Work Phone: [facility] 03-16-2022 14:47-0500 Respiratory rate 18 /min Ranjeet Del Rio WASTEWATER TREATMENT ENGINEER.[employer] Work Phone: [facility] 03-16-2022 14:47-0500 SaO2% (BldA) [Mass fraction] 99 % Ranjeet Del Rio WASTEWATER TREATMENT ENGINEER.[employer] Work Phone: [facility] 03-16-2022 14:47-0500 Systolic blood pressure 144 mm[Hg] Ranjeet Del Rio WASTEWATER TREATMENT ENGINEER.[employer] Work Phone: [facility] 03-12-2022 17:00-0400 Body weight 92.08 kg NA Lugo PA-C Work Phone: [facility] 03-12-2022 17:00-0400 Diastolic blood pressure 74 mm[Hg] NA Lugo PA-C Work Phone: [facility] 03-12-2022 17:00-0400 Heart rate 83 /min NA Lugo PA-C Work Phone: [facility] 03-12-2022 17:00-0400 Respiratory rate 16 /min NA Lugo PA-C Work Phone: [facility] 03-12-2022 17:00-0400 SaO2% (BldA) [Mass fraction] 99 % NA Lugo PA-C Work Phone: [facility] 03-12-2022 17:00-0400 Systolic blood pressure 118 mm[Hg] NA Lugo PA-C Work Phone: [facility] 02-19-2022 16:32-0400 Body weight 92.99 kg NA Lugo PA-C Work Phone: [facility] 02-19-2022 16:32-0400 Diastolic blood pressure 68 mm[Hg] NA Lugo PA-C Work Phone: [facility] 02-19-2022 16:32-0400 Heart rate 69 /min NA Lugo PA-C Work Phone: [facility] 02-19-2022 16:32-0400 Respiratory rate 16 /min NA Lugo PA-C Work Phone: [facility] 02-19-2022 16:32-0400 SaO2% (BldA) [Mass fraction] 99 % NA Lugo PA-C Work Phone: [facility] 02-19-2022 16:32-0400 Systolic blood pressure 122 mm[Hg] NA Lugo PA-C Work Phone: [facility] 11-22-2021 13:55-0400 Body temperature 99.9 [degF] Chio Vale APRN.[employer] Work Phone: [facility] 11-22-2021 13:55-0400 Body weight 92.08 kg Chio Vale APRN.[employer] Work Phone: [facility] 11-22-2021 13:55-0400 Diastolic blood pressure 66 mm[Hg] Chio Vale APRN.[employer] Work Phone: [facility] 11-22-2021 13:55-0400 Heart rate 122 /min Chio Vale APRN.[employer] Work Phone: [facility] 11-22-2021 13:55-0400 Respiratory rate 18 /min Chio Vale APRN.[employer] Work Phone: [facility] 11-22-2021 13:55-0400 SaO2% (BldA) [Mass fraction] 98 % Chio Vale APRN.[employer] Work Phone: [facility] 11-22-2021 13:55-0400 Systolic blood pressure 120 mm[Hg] Chio Vale APRN.[employer] Work Phone: [facility] 09-08-2021 16:20-0400 Body weight 92.53 kg NA Lugo PA-C Work Phone: [facility] 09-08-2021 16:20-0400 Diastolic blood pressure 76 mm[Hg] NA Lugo PA-C Work Phone: [facility] 09-08-2021 16:20-0400 Heart rate 90 /min NA Lugo PA-C Work Phone: [facility] 09-08-2021 16:20-0400 Respiratory rate 16 /min NA Lugo PA-C Work Phone: [facility] 09-08-2021 16:20-0400 SaO2% (BldA) [Mass fraction] 97 % NA Lugo PA-C Work Phone: [facility] 09-08-2021 16:20-0400 Systolic blood pressure 128 mm[Hg] NA Lugo PA-C Work Phone: [facility] Encounters Encounter Date Encounter Type Care Provider Facility Start: 06-11-2023 End: 06-11-2023 ambulatory KHALIF ARMIJO Facility:[facility] Start: 06-11-2023 End: 06-11-2023 Subsequent hospital visit by physician [facility] (I-Stat) Work Phone: Cat Scan Procedures Date Procedure Procedure Detail Performing Clinician Start: 06-11-2023 Ct thorax w/o contra st material Khalif Armijo MD Work Phone: Start: 10-17-2021 Adult depression scr eening assessment NA Lugo PA-C Work Phone: Start: 09-08-2021 Adult depression scr eening assessment NA Lugo PA-C Work Phone: Start: 08-07-2021 Ct thorax w/o contra st material Khalif Armijo MD Work Phone: Start: 08-07-2021 Mammography Screen Wst r Start: 07-19-2020 Lipid 1996 panel - S cherry or Plasma Khalif Armijo MD Work Phone: Start: 07-21-2018 Adult depression scr eening assessment Screen Wstr Plan of Treatment Date Care Activity Detail Author Start: 11-04-2030 Urine microalbumin profile [facility] Start: 07-25-2025 Diabetes Screening Diabetes Screenin g [facility] Start: 07-19-2025 Lipid 1996 panel - S cherry or Plasma Lipid Screening [facility] Start: 07-19-2025 Lipid panel Lipid Screening [facility] Start: 07-19-2025 LIPID SCREEN LIPID SCREEN [facility] Start: 02-20-2025 DIABETES SCREEN DIABETES SCREEN [facility] Start: 02-20-2025 Diabetes Screening Diabetes Screenin g [facility] Start: 05-10-2023 Depression Assessment Depression Ass essment [facility] Start: 01-08-2023 Covid-19 Vaccine ( season) Covid-19 Vaccine ( season) [facility] Start: 01-08-2023 Influenza vaccination [facility] Start: 10-17-2022 Adult depression screening assessment DEPRESSION SCREENING [facility] Start: 09-08-2022 Adult depression screening assessment DEPRESSION SCREENING [facility] Start: 08-07-2022 End: 09-06-2022 Ct thorax w/o contrast material CT CHEST WO IVCON Radiology Routine Lung nodules Expected: 08/07/2022, Expires: 09/06/2022 [facility] Work Phone: Immunizations Immunization Date Immunization Notes Care Provider Fa cility 03-12-2022 pneumococcal Conjuga te, unspecified formulation ESTIVEN Lugo PA-C Work Phone: [facility] Work Phone: 03-12-2022 pneumococcal (PCV20) vaccine, 20 valent (PREVNAR 20) ESTIVEN Lugo PA-C Work Phone: [facility] 04-09-2021 influenza, injectabl e, quadrivalent, preservative free NA Parish RICHMOND Work Phone: [facility] 04-09-2021 influenza virus vaccine, unspecified formulation Khalif Armijo MD Work Phone: [facility] 11-04-2020 tetanus toxoid, redu jeremy diphtheria toxoid, and acellular pertussis vaccine, adsorbed NA Parish RICHMOND Work Phone: [facility] Payers Date Payer Category Payer Unknown [employer] PPO OOS [id number] 2022-Present [phone] [address] [place] [address] PPO [id number] 2022 Unknown [id number] Social History Date Type Detail Facility Start: 07-10-2013 End: 02-19-2022 Tobacco smoking status DEIS Smokes tobacco daily [facility] History of tobacco use Cigarette Smoker [facility] Work Phone: Start: 07-24-2021 End: 05-25-2023 Alcohol intake Current non-drinker of alcohol (finding) [facility] Start: 1975 Sex Assigned At Not on file [facility] Start: 07-28-2021 End: 04-08-2022 Exposure to SARS-CoV-2 (event) Not sure [facility] Start: 07-10-2013 End: 10-29-2022 Cigarettes smoked current (pack per day) - Reported 0.5 [facility] Work Phone: Start: 07-10-2013 End: 02-19-2022 Tobacco use and exposure Smokeless tobacco non-user [facility] Start: 09-21-2022 End: 10-29-2022 Tobacco use panel [facility] Work Phone: Adult Depression Screening Assessment 3 [facility] Work Phone: Clinical Notes 12-01-2013 to 06-11-2023 Reef Mikie Jacobs, RT(R) - 06/11/2023 1:00 PM Chico Bautista, ILIR.[employer] - 04/26/2023 1:56 PM ESTTelephone Encounter - Keyla Mcneil M - 04/19/2023 1:50 PM ESTPatient Instructions Note Date & Type Note Facility 06-11-2023 Note HNO ID: [id number] Author: MIKIE GAONA RT(Lynsey) Service: ? Author Type: Color Television Console Monitor Type: Progress Notes Filed: 06/11/2023 13:42 Note Text: Radiology Service Progress Note PATIENT NAME: Emeli Herrera DATE OF SERVICE: June 11, 2023 TIME: 1:41 PM PATIENT IDENTITY VERIFICATION COMPLETED USING TWO (2) IDENTIFIERS: Name and Date of confirmed by patient verbally. FALL SCREENING: Has the patient had 2 falls in the last year or 1 fall with injury or currently using an Ambulatory Assistive Device (Walker, Cane, Wheelchair, Crutches, etc.)? No PATIENT GENDER DATA: Female. status: : No status: NO. PATIENT RELEVANT IMPLANT DATA REVIEWED: Yes PATIENT PRESENTS WITH AN IMPLANTABLE OR ATTACHED REGISTRAR MUSEUM: No RADIOLOGY DEPARTMENT: CT; Exam(s) Completed: Chest PERIPHERAL IV DATA: Not applicable SIGNED BY: RT Paris(Lynsey) June 11, 2023 1:41 PM [facility] 06-11-2023 History of Presen t illness Narrative Radiology Service Progress Note PATIENT NAME: Emeli Herrera DATE OF SERVICE: June 11, 2023 TIME: 1:41 PM PATIENT IDENTITY VERIFICATION COMPLETED USING TWO (2) IDENTIFIERS: Name and Date of confirmed by patient verbally. FALL SCREENING: Has the patient had 2 falls in the last year or 1 fall with injury or currently using an Ambulatory Assistive Device (Walker, Cane, Wheelchair, Crutches, etc.)? No PATIENT GENDER DATA: Female. status: : No status: NO. PATIENT RELEVANT IMPLANT DATA REVIEWED: Yes PATIENT PRESENTS WITH AN IMPLANTABLE OR ATTACHED REGISTRAR MUSEUM: No RADIOLOGY DEPARTMENT: CT; Exam(s) Completed: Chest PERIPHERAL IV DATA: Not applicable SIGNED BY: RT Paris(Lynsey) June 11, 2023 1:41 PM documented in this encounter [facility] 05-25-2023 Note HNO ID: [id number] Author: ZEYAD CASEY RT(R) Service: Radiology Author [...] RT Kam(R) May 25, 2023 5:47 PM [facility] 05-25-2023 Note HNO ID: [id number] Author: KHALIF ARMIJO MD Service: ? Author Type: Physician Type: Progress Notes Filed: 05/25/2023 17:57 Note Text: Patient presents with: Follow Up HPI: Patient presents today for office visit for follow up. Not seen since 2021. Seen in [facility] twice since April. Last seen 05/11/23. Dx with Acute otitis media of right ear with perforation. Given Ofloxacin drops and oral cefdinir. Has not scheduled consult with ENT as recommended. Co-pay is too high[facility]. Still complains of not being able to hear very well out of right ear. Right wrist pain that started this morning. 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 [facility] 05-11-2023 Note HNO ID: [id number] Author: Brittney Lora PA-C Service: ? Author Type: Physician Geological Survey Field Assistant Type: Progress Notes Filed: 05/11/2023 7:43 AM Note Text: This note was created using [employer] The[employer]. Subjective Emeli Herrera is a 47 year [...] MEDICAL HISTORY Diagnosis Date Bipolar 1 disorder ([facility]) sees psych at [facility] DVT (deep venous thrombosis) ([facility]) 2006 Marijuana use Migraine with aura PE (pulmonary embolism) 2006 PTSD (post-traumatic stress disorder) sees psych at [facility] Schizoaffective disorder ([facility]) sees psych at [facility] Urinary tract infection, site not specified [...] Musculoskeletal: Cervical back (more content not included)... [facility] 04-26-2023 Note HNO ID: [id number] Author: Chico Gaming APRN.[employer] Service: ? Author Type: Nurse Practitioner Type: [...] MEDICAL HISTORY Diagnosis Date Bipolar 1 disorder ([facility]) sees psych at [facility] DVT (deep venous thrombosis) ([facility]) 2006 Marijuana use Migraine with aura PE (pulmonary embolism) 2006 PTSD (post-traumatic stress disorder) sees psych at [facility] Schizoaffective disorder ([facility]) sees psych at [facility] Urinary tract infection, site not specified [...] uvula swelling. Eyes: (more content not included)... [facility] 04-26-2023 History of Presen t illness Narrative [...] MEDICAL HISTORY Diagnosis Date Bipolar 1 disorder ([facility]) [facility] DVT (deep venous thrombosis) ([facility]) 2006 Marijuana use Migraine with aura PE (pulmonary embolism) 2006 PTSD (post-traumatic stress disorder) sees psych [facility] Schizoaffective disorder ([facility]) sees psych at [facility] Urinary tract infection, site not specified [...] of care. This note was generated using [employer] 911 software. It may contain errors in wording, punctuation, or spelling. Chico Gaming APRN.[employer] documented in this encounter [facility] 04-19-2023 Miscellaneous Notes Pharmacy verified in [facility] in [place] Patient has been identified by name and [...] mg tablet Class: Normal Route: ORAL Order: [id number] Date of last office visit : 04/22/2022 Date of next office visit : Visit date not found Last 2 Encounter Wt Readings: Date: Wt: 01/06/2023 95.4 kg (210 lb 6.4 oz) 09/21/2022 93.4 kg (206 lb) Not applicable Please advise. Keyla Casey Pss documented in this encounter [facility] 04-19-2023 Miscellaneous Notes Pharmacy verified in [employer] Patient has been identified by name and [...] Keyla Casey Pss documented in this encounter [facility] 02-12-2023 Miscellaneous Notes Patient last visit [...] patient. Debbie Melo documented in this encounter [facility] 02-01-2023 Miscellaneous Notes Patient calls to [...] O2 SATURATION MONITOR: No Protocols used: Breathing [id number] documented in this encounter [facility] 01-07-2023 Miscellaneous Notes Patient notified.Lizabeth Cervantes LPN ----- Message from Callie Ordonez APRN.[employer] sent at 01/07/2023 7:12 AM EDT ----- Please advise patient the COVID and flu test was negative. documented in this encounter [facility] 01-06-2023 Note HNO ID: [id number] Author: Cole Frazier MD Service: ? Author [...] MEDICAL HISTORY Diagnosis Date Bipolar 1 disorder ([facility]) sees psych at [facility] DVT (deep venous thrombosis) ([facility]) 2007 Marijuana use Migraine with aura PE (pulmonary embolism) 2006 PTSD (post-traumatic stress disorder) sees psych at [facility] Schizoaffective disorder ([facility]) sees psych at [facility] Urinary tract infection, site not specified [...] encouraged virtual visit with primary care or [facility] Online to review antiviral treatment if positive. Cole Frazier MD [facility] 01-06-2023 History of Presen t illness Narrative [...] MEDICAL HISTORY Diagnosis Date Bipolar 1 disorder ([facility]) sees psych at [facility] DVT (deep venous thrombosis) ([facility]) 2006 Marijuana use Migraine with aura PE (pulmonary embolism) 2006 PTSD (post-traumatic stress disorder) sees psych at [facility] Schizoaffective disorder ([facility]) sees psych at [facility] Urinary tract infection, site not specified [...] encouraged virtual visit with primary care or [facility] Online to review antiviral treatment if positive. Cole Frazier MD documented in this encounter [facility] 12-07-2022 Miscellaneous Notes Last office visit: [...] patient. Kelli Man documented in this encounter [facility] 12-07-2022 Miscellaneous Notes Last office visit: 04/22/22 F/u scheduled: none, no showed 10/29/22 Vania Mendez Ma Emeli Herrera is calling Khalif Armijo MD today requesting a refill on an medication. baclofen (LIORESAL) 10 mg tablet Please send to [facility] documented in this encounter [facility] 09-21-2022 Miscellaneous Notes Patient has been [...] patient. Diane Brown documented in this encounter [facility] 09-21-2022 Note HNO ID: [id number] Author: RT Alivia(R) Service: ? Author Type: Color Television Console Monitor Type: Progress Notes Filed: 09/21/2022 9:51 AM [...] RT Alivia(R) September 21, 2022 9:43 AM [facility] 09-21-2022 Note HNO ID: [id number] Author: Ranjeet Del Rio APRN.[employer] [employer] Service: ? Author Type: Nurse Practitioner Type: Progress Notes Filed: 09/21/2022 12:58 PM Note Text: This note was created using [employer] The[employer]. Subjective Emeli Herrera is a 47 year [...] rash or lesions. 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 No speech language pathologist was used. Pain (foot) Pain location: RIGHT [...] MEDICAL HISTORY Diagnosis Date Bipolar 1 disorder ([facility]) sees psych at [facility] DVT (deep venous thrombosis) ([facility]) 2006 Marijuana use Migraine with aura PE (pulmonary embolism) 2006 PTSD (post-traumatic stress disorder) sees psych at [facility] Schizoaffective disorder ([facility]) [facility] Urinary [...] Pulse 82 T (more content not included)... [facility] 09-09-2022 Note Patient Outreach (IN TMMN) EMELI HERRERA ([id number]) 1975 F Date Time Provider Department 09/09/22 [...] for screening mammogram for breast cancer [Z12.31] Order(s):[facility] SCREENING [[id number]] Order #: [id number] FUTURE Prescriptions as of 09/14/2022 - gabapentin [...] disc disease), cervical [M50.*07/24/2021 Encounter Status:Closed by PARADISE BLOOMUSER on 09/14/22 [facility] 08-19-2022 Miscellaneous Notes No visit scheduled. [facility] 04/22/22 Patient has been identified by name and [...] Pham Garcia [employer] documented in this encounter [facility] 07-07-2022 Miscellaneous Notes Addended by: KHALIF [...] Núñez Pss ' documented in this encounter [facility] 05-21-2022 Miscellaneous Notes Patient has been [...] Nicolette Parks Pss documented in this encounter [facility] 04-22-2022 Instructions Bruna Parker APRN.[employer] - 04/22/2022 3:57 PM EST Wear the spica splint. Ice to the wrist. You can use the ibuprofen 800 mg every 6-8 hours. You can also use tylenol if needed. Schedule w/ ortho. documented in this encounter [facility] 04-22-2022 History of Presen t illness [...] MEDICAL HISTORY Diagnosis Date Bipolar 1 disorder ([facility]) sees psych at [facility] DVT (deep venous thrombosis) ([facility]) 2006 Marijuana use Migraine with aura [...] or as needed for worsening/no improvement. Bruna Parker APRN.DAVID This note was partially generated using Experts 911 voice recognition system. Note was reviewed for accuracy. There may be minor misspellings or grammar miscues with Experts 911 voice recognition. documented in this encounter [facility] 04-08-2022 History of Presen t illness Narrative Subjective Ear Problem Associated symptoms include hearing loss. Pertinent negatives include no coughing, headaches or sore throat. Emeli Herrera is a 46 year old female who presents to [facility] for evaluation of right ear pain [...] MEDICAL HISTORY Diagnosis Date Bipolar 1 disorder ([facility]) [facility] DVT (deep venous thrombosis) ([facility]) 2006 Marijuana use Migraine with aura PE (pulmonary embolism) 2006 PTSD (post-traumatic stress disorder) sees psych [facility] Schizoaffective disorder ([facility]) sees psych at [facility] Urinary tract infection, site not specified [...] expected course of illness Callie Ordonez APRN.DAVID documented in this encounter [facility] 04-08-2022 Instructions Callie Ordonez APRN.CNP - [...] Discussed expected course of illness Callie Ordonez APRN.[place] [employer] OTITIS MEDIA GENERAL INFORMATION: Otitis media is [...] even if the symptoms go away. 2. Pxgw-sjr-uypknnu pain medication may be taken or other [...] him or her). documented in this encounter [facility] 04-08-2022 Miscellaneous Notes [facility] 03/12/22 NOV [...] still present). Please review and advise. Pricilla Aragon Pss documented in this encounter [facility] 03-21-2022 Miscellaneous Notes Patient has been [...] you. Helen Stanton documented in this encounter [facility] 03-16-2022 Instructions Ranjeet Del Rio APRN.DAVID [...] even if the symptoms go away. 2. Jscl-fkm-lvskxnc pain medication may be taken or other [...] him or her). documented in this encounter [facility] 03-16-2022 History of Presen t illness Narrative This note was created using Concurrent Thinking[employer]. Subjective Emeli Herrera is a 46 year [...] approximately one week ago She works at [employer] Utilized Tylenol with mild relief. The history is provided by the patient. No speech language pathologist was used. Ear Pain This is a [...] MEDICAL HISTORY Diagnosis Date Bipolar 1 disorder ([facility]) sees psych at [facility] DVT (deep venous thrombosis) ([facility]) 2006 Marijuana use Migraine with aura PE (pulmonary embolism) 2006 PTSD (post-traumatic stress disorder) sees psych at [facility] Schizoaffective disorder ([facility]) sees psych at [facility] Urinary tract infection, site not specified [...] and findings of AOM Ranjeet Del Rio APRN.[place] L[place]ER documented in this encounter [facility] 03-12-2022 Instructions Rudy Lugo PA-C - 03/12/2022 5:20 PM EDT Ice/ moist heat, lineaments, OTC analgesics as needed. Stretching and posture reviewed. documented in this encounter [facility] 03-12-2022 History of Presen t illness Narrative 46 year old female with c/o here for follow up Migraine with aura, not intractable, without status migrainosus (primary encounter diagnosis) Migraine without aura and with status migrainosus, not intractable Chronic tension-type headache, intractable Current medications: Sumatriptan 100 mg stat severe headache, repeat in 2 hours once prn [id number] mg-caff 40mg-butal 50mg q4h prn BORDEN sparingly [...] MEDICAL HISTORY Diagnosis Date Bipolar 1 disorder ([facility]) [facility] DVT (deep venous thrombosis) ([facility]) 2006 Marijuana use Migraine with aura PE (pulmonary embolism) 2006 PTSD (post-traumatic stress disorder) sees psych [facility] Schizoaffective disorder ([facility]) [facility] psych [facility] Urinary [...] LIST Migraine Without Aura Bipolar 1 disorder ([facility]) Ptsd (Post-Traumatic Stress Disorder) Schizoaffective Disorder ([facility]) Lumbago Chronic Back Pain Lumbar [...] prn OMT Push fluids Relaxation techniques, mindfulness. [id number] E 50 MG-325 MG-40 MG TABLET 2. [...] 295.70, ICD10: F25.0 As above. Following with [facility] 9. Smoker - ICD9: 305.1, ICD10: F17.200 [...] Has f/u CT orders pending: needs to [place] 11. Encounter for immunization - ICD9: V03.89, ICD10: Z23 - PNEUMOCOCCAL VACCINE (PREVNAR 20) 12. Somatic dysfunction of cervical region - ICD9: 739.1, ICD10: M99.01 Push fluids Stretching, muscle energy techniques reviewed. F/u prn, seems to benefit Rudy Lugo PA-C documented in this encounter [facility] 03-09-2022 Miscellaneous Notes Please assist: Dr. [...] again? Thank you. documented in this encounter [facility] 02-25-2022 Miscellaneous Notes Patient returned call and went over results, notes from Justin STANTON with understanding. Called and left message on patients voicemail to return call to the office and ask to speak with a FM triage nurse. Ana Batres Ma ----- Message from Rudy Lugo PA-C sent at 02/25/2022 9:59 AM EDT ----- Please advise chemistries look good except for minor abnormalities which are not significant, blood count looks good also. Thanks, Justin Lugo PA-C documented in this encounter [facility] 02-19-2022 History of Presen t illness [...] Wants to transfer from Dr. Mcghee to [facility] pain management Patient states refill on [...] MEDICAL HISTORY Diagnosis Date Bipolar 1 disorder ([facility]) [facility] DVT (deep venous thrombosis) ([facility]) 2006 Marijuana use Migraine with aura PE (pulmonary embolism) 2006 PTSD (post-traumatic stress disorder) sees psych [facility] Schizoaffective disorder ([facility]) [facility] Urinary [...] LIST Migraine Without Aura Bipolar 1 disorder ([facility]) Ptsd (Post-Traumatic Stress Disorder) Schizoaffective Disorder ([facility]) Lumbago Chronic Back Pain Lumbar [...] sx - SUMATRIPTAN 100 MG TABLET - [id number] E 50 MG-325 MG-40 MG TABLET 3. [...] METABOLIC PANEL - CBC F/u 4 weeks. M ROMY Willis-C documented in this encounter [facility] 02-09-2022 Miscellaneous Notes Pt notified and [...] allow her to get a refill. Emeli [phone] documented in this encounter [facility] 01-15-2022 Miscellaneous Notes Patient phones requesting [...] patient. Diane Brown documented in this encounter [facility] 01-01-2022 Miscellaneous Notes Patient last visit with PCP 10/17/21 Follow up appointment scheduled NO showed 11/21 Brigitte [facility] verified in [facility] Patient has been identified by name [...] Keyla Casey Pss documented in this encounter [facility] 12-04-2021 Miscellaneous Notes Patient has been [...] No need to notify patient. [facility] 11-23-2021 Miscellaneous Notes Patient given results and verbalized understanding of instructions given. Nicolette Graff ----- Message from Callie Ordonez APRN.[place] [employer]ER sent at 11/23/2021 8:15 AM EDT ----- Please advise patient of negative COVID and influenza test. documented in this encounter [facility] 11-22-2021 History of Presen t illness [...] MEDICAL HISTORY Diagnosis Date Bipolar 1 disorder ([facility]) [facility] DVT (deep venous thrombosis) ([facility]) 2006 Marijuana use Migraine with aura PE (pulmonary embolism) 2006 PTSD (post-traumatic stress disorder) sees psych [facility] Schizoaffective disorder ([facility]) sees psych at [facility] Urinary tract infection, site not specified [...] Patient agreeable to treatment plan. Chio Vale APRN.DAVID documented in this encounter [facility] 11-05-2021 Miscellaneous Notes oarrs done. CHINYERE: [...] Maeve Núñez Pss documented in this encounter [facility] 10-31-2021 Miscellaneous Notes Patient phones requesting refills as follows: Pending Prescriptions Disp Refills GABAPENTIN 400 MG CAPSULE 90 capsule 0 Sig: Take 1 capsule by mouth three times daily for 90 days. BRIAN: No [facility] 09/19/21 NOV 11/21/21 Please review and advise. Bridget Metz LPN Patient requesting her medication gabapentin 400 mg. Patient had put in a message earlier and the medication has not been filled. Patient would like it sent to [facility]. Patient has not had the medication in 1 week. documented in this encounter [facility] 10-27-2021 Miscellaneous Notes Pt notified and voiced understanding. aVnia Mendez Ma Let her know I wrote two lamictals. Start second after she has finished the script for three 25 mg pills a day [facility] 09/19/2021 Appointment scheduled for 11/21/2021 Please advise. Thank you. D[facility] verified in [facility] Patient has been identified by name [...] Keyla Casey Pss documented in this encounter [facility] 10-23-2021 Miscellaneous Notes Patient scheduled with [...] Cynthia Madden MA documented in this encounter [facility] 10-17-2021 History of Presen t illness Narrative Audio only was used for evaluation of this patient. Location of patient: [place] Patient was offered a virtual/telemedicine appointment in [...] Schizoaffective disorder, bipolar type (hcc) Current medications: Lamictal up to 75mg Doing [...] [facility] (deep venous thrombosis) ([facility]) 2006 Marijuana use Migraine with aura PE (pulmonary embolism) 2006 PTSD (post-traumatic stress disorder) sees psych [facility] Schizoaffective disorder ([facility]) [facility] Urinary [...] Lugo PA-C . documented in this encounter [facility] 09-22-2021 Miscellaneous Notes [facility] 09/19/21 NOV [...] Opal Gifford Pss documented in this encounter [facility] 09-19-2021 History of Presen t illness Narrative Virtualist Progress Note Triage Call Triage source: Nurse Clinical Education Specialist Mode of contact (phone call, [employer], [employer], [facility], Skype, other): tele History/Physical Exam: 46 y/o female hit the back of her head on a steel shelf early today. No LOC. Now she has a headache, poor concentration and nausea. She is not on any blood thinners. Able to answer questions appropiately. no blurry vision or slurred speech Nurse Triage Disposition (If call is from Home Care, [facility] Home Care nurse triage, [...] September 19, 2021 documented in this encounter [facility] 09-19-2021 Miscellaneous Notes Reason For Call: [...] last menstrual period? Denies Protocols used: HEAD [id number] documented in this encounter [facility] 09-08-2021 Instructions M Jordy Lugo PA-C [...] Starter Kit-Blue; Subvenite Starter Kit-Green; Subvenite Starter Kit-[place] Brand Names: [place]APO-LamoTRIgine; Auro-LamoTRIgine; LaMICtal; LamoTRIgine-100; LamoTRIgine-150; [...] Reviewed Date 2019-03-08 documented in this encounter [facility] 09-08-2021 History of Presen t illness [...] MEDICAL HISTORY Diagnosis Date Bipolar 1 disorder ([facility]) [facility] DVT (deep venous thrombosis) ([facility]) 2006 Marijuana use Migraine with aura PE (pulmonary embolism) 2007 PTSD (post-traumatic stress disorder) sees psych [facility] Schizoaffective disorder ([facility]) [facility] Urinary [...] Rudy Lugo PA-C documented in this encounter [facility] 09-01-2021 Miscellaneous Notes [facility] 07/24/21 NOV No upcoming appt Patient has been identified by name and date of : Yes Pending Prescriptions Disp Refills SUMATRIPTAN 100 MG TABLET 9 tablet 2 Sig: Take 1 tablet by mouth as needed. BRIAN: No RX INSTRUCTIONS: Patient aware RX will be sent to pharmacy. No need to notify patient. Diane Brown documented in this encounter [facility] 08-20-2021 Miscellaneous Notes Already called in. documented in this encounter [facility] 08-08-2021 Miscellaneous Notes Patient notified and verbalized understanding Cynthia Wolff Cma Ct shows two very tiny nodules. Probably ok but recommend repeat ct in in one year. documented in this encounter [facility] 08-07-2021 Miscellaneous Notes August 07, 2021 PID: [id number] Emeli Herrera [address] [place] [address] Dear Ms. Herrera, We are pleased to [...] report will be kept on file at [facility] as part of your permanent medical record and are available for your continuing care. Thank you for allowing us to help in meeting your health care needs. Sincerely, Dr. Jimenez Interpreting Radiologist [facility] (Normal over 40) documented in this encounter [facility] 08-07-2021 History of Presen t illness [...] PERIPHERAL IV DATA: Not applicable SIGNED BY: Darin Dubon August 07, 2021 8:59 AM documented in this encounter [facility] 08-07-2021 History of Presen t illness [...] 2021 11:12 AM documented in this encounter [facility] documented as of this encounter (statuses as of 08/08/2021) [facility] History of Past illness Narrative* Problem Noted Date Resolved Date Knee pain 12/01/2013 09/22/2018 Other nonspecific abnormal finding 11/16/2006 11/16/2006 documented as of this encounter (statuses as of 08/08/2021) [facility] History of Past illness Narrative* Problem Noted Date Resolved Date Knee pain 12/01/2013 09/22/2018 Other nonspecific abnormal finding 11/16/2006 11/16/2006 documented as of this encounter (statuses as of 08/08/2021) [facility] of Past illness Narrative* Problem Noted Date Resolved Date Knee pain 12/01/2013 09/22/2018 Other nonspecific abnormal finding 11/16/2006 11/16/2006 documented as of this encounter (statuses as of 08/09/2021) [facility] of Past illness Narrative* Problem Noted Date Resolved Date Knee pain 12/01/2013 09/22/2018 Other nonspecific abnormal finding 11/16/2006 11/16/2006 documented as of this encounter (statuses as of 08/20/2021) [facility] of Past illness Narrative* Problem Noted Date Resolved Date Knee pain 12/01/2013 09/22/2018 Other nonspecific abnormal finding 11/16/2006 11/16/2006 documented as of this encounter (statuses as of 09/01/2021) [facility] of Past [facility] Narrative* Problem Noted Date Resolved Date Knee pain 12/01/2013 09/22/2018 Other nonspecific abnormal finding 11/16/2006 11/16/2006 documented as of this encounter (statuses as of 09/08/2021) [facility] of Past [facility] Narrative* Problem Noted Date Resolved Date Knee pain 12/01/2013 09/22/2018 Other nonspecific abnormal finding 11/16/2006 11/16/2006 documented as of this encounter (statuses as of 09/19/2021) [facility] of Past [facility] Narrative* Problem Noted Date Resolved Date Knee pain 12/01/2013 09/22/2018 Other nonspecific abnormal finding 11/16/2006 11/16/2006 documented as of this encounter (statuses as of 09/19/2021) [facility] of Past [facility] Narrative* Problem Noted Date Resolved Date Knee pain 12/01/2013 09/22/2018 Other nonspecific abnormal finding 11/16/2006 11/16/2006 documented as of this encounter (statuses as of 09/22/2021) [facility] of Past [facility] Narrative* Problem Noted Date Resolved Date Knee pain 12/01/2013 09/22/2018 Other nonspecific abnormal finding 11/16/2006 11/16/2006 documented as of this encounter (statuses as of 10/18/2021) [facility] of Past [facility] Narrative* Problem Noted Date Resolved Date Knee pain 12/01/2013 09/22/2018 Other nonspecific abnormal finding 11/16/2006 11/16/2006 documented as of this encounter (statuses as of 10/23/2021) [facility] Past [facility] Narrative* Problem Noted Date Resolved Date Knee pain 12/01/2013 09/22/2018 Other nonspecific abnormal finding 11/16/2006 11/16/2006 documented as of this encounter (statuses as of 10/27/2021) [facility] Narrative* Problem Noted Date Resolved Date Knee pain 12/01/2013 09/22/2018 Other nonspecific abnormal finding 11/16/2006 11/16/2006 documented as of this encounter (statuses as of 10/31/2021) [facility] Narrative* Problem Noted Date Resolved Date Knee pain 12/01/2013 09/22/2018 Other nonspecific abnormal finding 11/16/2006 11/16/2006 documented as of this encounter (statuses as of 11/06/2021) [facility] Narrative* Problem Noted Date Resolved Date Knee pain 12/01/2013 09/22/2018 Other nonspecific abnormal finding 11/16/2006 11/16/2006 documented as of this encounter (statuses as of 11/22/2021) [facility] of Past [facility] Narrative* Problem Noted Date Resolved Date Knee pain 12/01/2013 09/22/2018 Other nonspecific abnormal finding 11/16/2006 11/16/2006 documented as of this encounter (statuses as of 11/23/2021) [facility] Narrative* Problem Noted Date Resolved Date Knee pain 12/01/2013 09/22/2018 Other nonspecific abnormal finding 11/16/2006 11/16/2006 documented as of this encounter (statuses as of 12/04/2021) [facility] Narrative* Problem Noted Date Resolved Date Knee pain 12/01/2013 09/22/2018 Other nonspecific abnormal finding 11/16/2006 11/16/2006 documented as of this encounter (statuses as of 01/02/2022) [facility] Narrative* Problem Noted Date Resolved Date Knee pain 12/01/2013 09/22/2018 Other nonspecific abnormal finding 11/16/2006 11/16/2006 documented as of this encounter (statuses as of 01/15/2022) [facility] Narrative* Problem Noted Date Resolved Date Knee pain 12/01/2013 09/22/2018 Other nonspecific abnormal finding 11/16/2006 11/16/2006 documented as of this encounter (statuses as of 02/09/2022) [facility] Narrative* Problem Noted Date Resolved Date Knee pain 12/01/2013 09/22/2018 Other nonspecific abnormal finding 11/16/2006 11/16/2006 documented as of this encounter (statuses as of 02/20/2022) [facility] Narrative* Problem Noted Date Resolved Date Knee pain 12/01/2013 09/22/2018 Other nonspecific abnormal finding 11/16/2006 11/16/2006 documented as of this encounter (statuses as of 02/25/2022) [facility] Narrative* Problem Noted Date Resolved Date Knee pain 12/01/2013 09/22/2018 Other nonspecific abnormal finding 11/16/2006 11/16/2006 documented as of this encounter (statuses as of 03/13/2022) [facility] Narrative* Problem Noted Date Resolved Date Knee pain 12/01/2013 09/22/2018 Other nonspecific abnormal finding 11/16/2006 11/16/2006 documented as of this encounter (statuses as of 03/16/2022) [facility] Narrative* Problem Noted Date Resolved Date Knee pain 12/01/2013 09/22/2018 Other nonspecific abnormal finding 11/16/2006 11/16/2006 documented as of this encounter (statuses as of 03/23/2022) [facility] Narrative* Problem Noted Date Resolved Date Knee pain 12/01/2013 09/22/2018 Other nonspecific abnormal finding 11/16/2006 11/16/2006 documented as of this encounter (statuses as of 04/08/2022) [facility] Narrative* Problem Noted Date Resolved Date Knee pain 12/01/2013 09/22/2018 Other nonspecific abnormal finding 11/16/2006 11/16/2006 documented as of this encounter (statuses as of 04/22/2022) [facility] Narrative* Problem Noted Date Resolved Date Knee pain 12/01/2013 09/22/2018 Other nonspecific abnormal finding 11/16/2006 11/16/2006 documented as of this encounter (statuses as of 04/22/2022) [facility] Narrative* Problem Noted Date Resolved Date Knee pain 12/01/2013 09/22/2018 Other nonspecific abnormal finding 11/16/2006 11/16/2006 documented as of this encounter (statuses as of 05/21/2022) [facility] Narrative* Problem Noted Date Resolved Date Knee pain 12/01/2013 09/22/2018 Other nonspecific abnormal finding 11/16/2006 11/16/2006 documented as of this encounter (statuses as of 07/08/2022) [facility] Narrative* Problem Noted Date Resolved Date Knee pain 12/01/2013 09/22/2018 Other nonspecific abnormal finding 11/16/2006 11/16/2006 documented as of this encounter (statuses as of 08/20/2022) [facility] Narrative* Problem Noted Date Resolved Date Knee pain 12/01/2013 09/22/2018 Other nonspecific abnormal finding 11/16/2006 11/16/2006 documented as of this encounter (statuses as of 09/14/2022) [facility] Narrative* Problem Noted Date Resolved Date Knee pain 12/01/2013 09/22/2018 Other nonspecific abnormal finding 11/16/2006 11/16/2006 documented as of this encounter (statuses as of 09/22/2022) [facility] Narrative* Problem Noted Date Diagnosed Date Resolved Date Knee pain 12/01/2013 09/22/2018 Other nonspecific abnormal finding 11/16/2006 11/16/2006 documented as of this encounter (statuses as of 12/07/2022) [facility] Narrative* Problem Noted Date Diagnosed Date Resolved Date Knee pain 12/01/2013 09/22/2018 Other nonspecific abnormal finding 11/16/2006 11/16/2006 documented as of this encounter (statuses as of 12/08/2022) [facility] Narrative* Problem Noted Date Diagnosed Date Resolved Date Knee pain 12/01/2013 09/22/2018 Other nonspecific abnormal finding 11/16/2006 11/16/2006 documented as of this encounter (statuses as of 01/07/2023) [facility] Narrative* Problem Noted Date Diagnosed Date Resolved Date Knee pain 12/01/2013 09/22/2018 Other nonspecific abnormal finding 11/16/2006 11/16/2006 documented as of this encounter (statuses as of 01/07/2023) [facility] Narrative* Problem Noted Date Diagnosed Date Resolved Date Knee pain 12/01/2013 09/22/2018 Other nonspecific abnormal finding 11/16/2006 11/16/2006 documented as of this encounter (statuses as of 02/01/2023) [facility] Narrative* Problem Noted Date Diagnosed Date Resolved Date Knee pain 12/01/2013 09/22/2018 Other nonspecific abnormal finding 11/16/2006 11/16/2006 documented as of this encounter (statuses as of 02/13/2023) [facility] Narrative* Problem Noted Date Diagnosed Date Resolved Date Knee pain 12/01/2013 09/22/2018 Other nonspecific abnormal finding 11/16/2006 11/16/2006 documented as of this encounter (statuses as of 04/20/2023) [facility] Narrative* Problem Noted Date Diagnosed Date Resolved Date Knee pain 12/01/2013 09/22/2018 Other nonspecific abnormal finding 11/16/2006 11/16/2006 documented as of this encounter (statuses as of 04/21/2023) [facility] History of Past illness Narrative* Problem Noted Date Diagnosed Date Resolved Date Knee pain 12/01/2013 09/22/2018 Other nonspecific abnormal finding 11/16/2006 11/16/2006 documented as of this encounter (statuses as of 04/27/2023) [facility] History of Past illness Narrative* Problem Noted Date Diagnosed Date Resolved Date Knee pain 12/01/2013 09/22/2018 Other nonspecific abnormal finding 11/16/2006 11/16/2006 documented as of this encounter (statuses as of 06/12/2023) [facility] Diagnosis Lung nodules Other nonspecific abnormal finding of lung field [facility] Diagnosis Lung nodules Other nonspecific abnormal finding of lung field [facility] Diagnosis Migraine with aura, not intractable, without status migrainosus documented [facility] Diagnosis Migraine with aura, not intractable, without status migrainosus [facility] Diagnosis Migraine with aura, not intractable, without status migrainosus- Primary Bipolar 1 disorder (HCC) Bipolar I disorder, most recent episode (or current) unspecified PTSD (post-traumatic stress disorder) Posttraumatic stress disorder Schizoaffective disorder, bipolar type (HCC) Schizoaffective disorder, unspecified condition [facility] Diagnosis Closed head injury without loss [...] of lung field [facility] Diagnosis Migraine with aura, not intractable, without status migrainosus Bipolar 1 disorder (HCC) Bipolar I disorder, most recent episode (or current) unspecified PTSD (post-traumatic stress disorder) Posttraumatic stress disorder Schizoaffective disorder, bipolar type (HCC) Schizoaffective disorder, unspecified condition [facility] Diagnosis PTSD (post-traumatic stress disorder) Posttraumatic stress disorder Bipolar 1 disorder (HCC) Bipolar I disorder, most recent episode (or current) unspecified Schizoaffective disorder, bipolar type (HCC) Schizoaffective disorder, unspecified condition [facility] Diagnosis Suspected COVID-19 virus infection- Primary [facility] Diagnosis Migraine with aura, not intractable, without status migrainosus [facility] Diagnosis Bipolar 1 disorder (HCC) Bipolar I disorder, most recent episode (or current) unspecified PTSD (post-traumatic stress disorder) Posttraumatic stress disorder Schizoaffective disorder, bipolar type (HCC) Schizoaffective disorder, unspecified condition [facility] Diagnosis Migraine with aura, not intractable, without status migrainosus [facility] Diagnosis Bipolar 1 disorder (HCC)- Primary Bipolar I disorder, most recent episode (or current) unspecified Migraine with aura, not intractable, without status migrainosus DDD (degenerative disc disease), cervical Degeneration of cervical intervertebral disc Lumbar spondylosis Lumbosacral spondylosis without myelopathy Schizoaffective disorder, bipolar type (HCC) Schizoaffective disorder, unspecified condition Elevated glucose Other abnormal glucose [facility] Diagnosis Migraine with aura, not intractable, [...] not elsewhere classified [facility] Diagnosis Acute otitis media, right- Primary Unspecified otitis media Otalgia, right ear [facility] Diagnosis Migraine with aura, not intractable, without status migrainosus [facility] Diagnosis Other acute nonsuppurative otitis media of right ear, recurrence not specified- Primary [facility] Diagnosis De Quervain's syndrome (tenosynovitis)- Primary Radial styloid tenosynovitis Right non-suppurative otitis media Nonsuppurative otitis media, not specified as acute or chronic [facility] [...] for breast cancer [facility]* Diagnosis DDD (degenerative disc disease), [...] [facility]* Diagnosis Acute otitis externa of right ear, unspecified type- Primary [facility] Lung nodules Other nonspecific abnormal finding of lung field [facility] Diagnostic Procedure Only (Routine) - Pending Review Specialty Diagnoses / Procedures Referred By Claire t Referred To Contact [facility] Diagnoses Encounter for screening mammogram for breast cancer Procedures DELLA SCREENING SCREENING MAMMOGRAPHY BI 2-VIEW BREAST INC CAD Khalif Armijo MD [address] [place] [address] [facility] [address] [place] [address] Referral ID Status Reason Start Date Expiration Date Visits Requested Visits Authorized [id number] Pending Review Auto-Generat ed Referral 09/09/2022 10/09/2023 1 1 [facility] Summary Purpose Family History No Family History Records FoundNo Family History Records FoundNo Family History Records Found Advance Directives No Advanced Directives Records FoundDocuments on File Type Date Recorded 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 Advance Directive(s) 12/13/2017 5:52 PM Documents on File Type Date Recorded 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 Advance Directive(s) 12/13/2017 5:52 PM Reason for Referral Specialty Diagnoses / Procedures Referred By Contac t Referred To Contact CT IMAGING Diagnoses Lung nodules Procedures CT CHEST WO IVCON DIAGNOSTIC COMPUTED TOMOGRAPHY THORAX W/O CNTRST Khalif Armijo MD [address] [place] [address] Ct Imaging Referral ID Status Reason Start Date Expiration Date Visits Requested Visits Authorized [id number] Pending Review Auto-Generat ed Referral 07/24/2021 08/23/2022 1 1 Referral ID Status Reason Start Date Expiration Date Visits Requested Visits Authorized [id number] Pending Review Auto-Generat ed Referral 08/07/2022 09/06/2022 1 1 Specialty Diagnoses / Procedures Referred By Claire t Referred To Contact Pain Management Diagnoses DDD (degenerative disc disease), cervical Lumbar spondylosis Procedures CONSULT TO PAIN MGT OFFICE/OUTPATIENT NEW HIGH MDM 60-74 MINUTES Rudy Lugo PA-C [address] [place] [address] Referral ID Status Reason Start Date Expiration Date Visits Requested Visits Authorized [id number] Pending Review PCP Requested Referral 2 02/19/2023 1 1 Specialty Diagnoses / Procedures Referred By Contac t Referred To Contact Orthopedics Diagnoses De Quervain's syndrome (tenosynovitis) Procedures CONSULT TO ORTHOPAEDICS OFFICE/OUTPATIENT NEW HIGH MDM 60-74 MINUTES Bruna Parker, ILIR.[employer] [address] [place] [address] Referral ID Status Reason Start Date Expiration Date Visits Requested Visits Authorized [id number] Pending Review PCP Requested Referral 2 04/22/2023 1 1 Specialty Diagnoses / Procedures Referred By Contac t Referred To Contact CT IMAGING Diagnoses Lung nodules Procedures CT CHEST WO IVCON DIAGNOSTIC COMPUTED TOMOGRAPHY THORAX W/O CNTRST Khalif Armijo MD [address] [place] [address] [place] [address] Referral ID Status Reason Start Date Expiration Date V isits Requested Visits Authorized [id number] Closed Auto-Generate d Referral 05/28/2023 08/26/2023 1 1 Health Concerns Infection Onset Date Last Indicated Resolved Time COVID-19 Rule-Out 11/22/2021 11/22/2021 Infection Onset Date Last Indicated Resolved Time COVID-19 Rule-Out 11/22/2021 11/22/2021 11/23/2021 7:34 AM EDT Additional Source Comments INFORMATION SOURCE (unrecogn ized section and content) DATE CREATED AUTHOR AUTHOR'S ORGANIZ ATION 07/31/2022 [facility] DATE CREATED AUTHOR AUTHOR'S ORGANIZ ATION 06/13/2023 [facility] Source Comments (unrecognize d section and content) In the event this informatio n is protected by the Federal Confidentiality of Alcohol and Drug Abuse Patient Records regulations: The Federal rules restrict any use of the information to criminally investigate or prosecute any alcohol or drug abuse patient.[facility] the event this information is protected by the Federal Confidentiality of Alcohol and Drug Abuse Patient Records regulations: The Federal rules restrict any use of the information to criminally investigate or prosecute any alcohol or drug abuse patient.[facility] the event this information is protected by the Federal Confidentiality of Alcohol and Drug Abuse Patient Records regulations: The Federal rules restrict any use of the information to criminally investigate or prosecute any alcohol or drug abuse patient.[facility] the event this information is protected by the Federal Confidentiality of Alcohol and Drug Abuse Patient Records regulations: The Federal rules restrict any use of the information to criminally investigate or prosecute any alcohol or drug abuse patient.[facility] the event this information is protected by the Federal Confidentiality of Alcohol and Drug Abuse Patient Records regulations: The Federal rules restrict any use of the information to criminally investigate or prosecute any alcohol or drug abuse patient.[facility] the event this information is protected by the Federal Confidentiality of Alcohol and Drug Abuse Patient Records regulations: The Federal rules restrict any use of the information to criminally investigate or prosecute any alcohol or drug abuse patient.[facility] the event this information is protected by the Federal Confidentiality of Alcohol and Drug Abuse Patient Records regulations: The Federal rules restrict any use of the information to criminally investigate or prosecute any alcohol or drug abuse patient.[facility] the event this information is protected by the Federal Confidentiality of Alcohol and Drug Abuse Patient Records regulations: The Federal rules restrict any use of the information to criminally investigate or prosecute any alcohol or drug abuse patient.[facility] the event this information is protected by the Federal Confidentiality of Alcohol and Drug Abuse Patient Records regulations: The Federal rules restrict any use of the information to criminally investigate or prosecute any alcohol or drug abuse patient.[facility] the event this information is protected by the Federal Confidentiality of Alcohol and Drug Abuse Patient Records regulations: The Federal rules restrict any use of the information to criminally investigate or prosecute any alcohol or drug abuse patient.[facility] the event this information is protected by the Federal Confidentiality of Alcohol and Drug Abuse Patient Records regulations: The Federal rules restrict any use of the information to criminally investigate or prosecute any alcohol or drug abuse patient.[facility] the event this information is protected by the Federal Confidentiality of Alcohol and Drug Abuse Patient Records regulations: The Federal rules restrict any use of the information to criminally investigate or prosecute any alcohol or drug abuse patient.[facility] the event this information is protected by the Federal Confidentiality of Alcohol and Drug Abuse Patient Records regulations: The Federal rules restrict any use of the information to criminally investigate or prosecute any alcohol or drug abuse patient.[facility] the event this information is protected by the Federal Confidentiality of Alcohol and Drug Abuse Patient Records regulations: The Federal rules restrict any use of the information to criminally investigate or prosecute any alcohol or drug abuse patient.[facility] the event this information is protected by the Federal Confidentiality of Alcohol and Drug Abuse Patient Records regulations: The Federal rules restrict any use of the information to criminally investigate or prosecute any alcohol or drug abuse patient.[facility]In the event this information is protected by the Federal Confidentiality of Alcohol and Drug Abuse Patient Records regulations: The Federal rules restrict any use of the information to criminally investigate or prosecute any alcohol or drug abuse patient.[facility] the event this information is protected by the Federal Confidentiality of Alcohol and Drug Abuse Patient Records regulations: The Federal rules restrict any use of the information to criminally investigate or prosecute any alcohol or drug abuse patient.[facility] the event this information is protected by the Federal Confidentiality of Alcohol and Drug Abuse Patient Records regulations: The Federal rules restrict any use of the information to criminally investigate or prosecute any alcohol or drug abuse patient.[facility] the event this information is protected by the Federal Confidentiality of Alcohol and Drug Abuse Patient Records regulations: The Federal rules restrict any use of the information to criminally investigate or prosecute any alcohol or drug abuse patient.[facility] the event this information is protected by the Federal Confidentiality of Alcohol and Drug Abuse Patient Records regulations: The Federal rules restrict any use of the information to criminally investigate or prosecute any alcohol or drug abuse patient.[facility]In the event this information is protected by the Federal Confidentiality of Alcohol and Drug Abuse Patient Records regulations: The Federal rules restrict any use of the information to criminally investigate or prosecute any alcohol or drug abuse patient.[facility] the event this information is protected by the Federal Confidentiality of Alcohol and Drug Abuse Patient Records regulations: The Federal rules restrict any use of the information to criminally investigate or prosecute any alcohol or drug abuse patient.[facility] the event this information is protected by the Federal Confidentiality of Alcohol and Drug Abuse Patient Records regulations: The Federal rules restrict any use of the information to criminally investigate or prosecute any alcohol or drug abuse patient.[facility]In the event this information is protected by the Federal Confidentiality of Alcohol and Drug Abuse Patient Records regulations: The Federal rules restrict any use of the information to criminally investigate or prosecute any alcohol or drug abuse patient.[facility] the event this information is protected by the Federal Confidentiality of Alcohol and Drug Abuse Patient Records regulations: The Federal rules restrict any use of the information to criminally investigate or prosecute any alcohol or drug abuse patient.[facility]In the event this information is protected by the Federal Confidentiality of Alcohol and Drug Abuse Patient Records regulations: The Federal rules restrict any use of the information to criminally investigate or prosecute any alcohol or drug abuse patient.[facility]In the event this information is protected by the Federal Confidentiality of Alcohol and Drug Abuse Patient Records regulations: The Federal rules restrict any use of the information to criminally investigate or prosecute any alcohol or drug abuse patient.[facility]In the event this information is protected by the Federal Confidentiality of Alcohol and Drug Abuse Patient Records regulations: The Federal rules restrict any use of the information to criminally investigate or prosecute any alcohol or drug abuse patient.[facility]In the event this information is protected by the Federal Confidentiality of Alcohol and Drug Abuse Patient Records regulations: The Federal rules restrict any use of the information to criminally investigate or prosecute any alcohol or drug abuse patient.[facility]In the event this information is protected by the Federal Confidentiality of Alcohol and Drug Abuse Patient Records regulations: The Federal rules restrict any use of the information to criminally investigate or prosecute any alcohol or drug abuse patient.[facility]In the event this information is protected by the Federal Confidentiality of Alcohol and Drug Abuse Patient Records regulations: The Federal rules restrict any use of the information to criminally investigate or prosecute any alcohol or drug abuse patient.[facility]In the event this information is protected by the Federal Confidentiality of Alcohol and Drug Abuse Patient Records regulations: The Federal rules restrict any use of the information to criminally investigate or prosecute any alcohol or drug abuse patient.[facility]In the event this information is protected by the Federal Confidentiality of Alcohol and Drug Abuse Patient Records regulations: The Federal rules restrict any use of the information to criminally investigate or prosecute any alcohol or drug abuse patient.[facility]In the event this information is protected by the Federal Confidentiality of Alcohol and Drug Abuse Patient Records regulations: The Federal rules restrict any use of the information to criminally investigate or prosecute any alcohol or drug abuse patient.[facility]In the event this information is protected by the Federal Confidentiality of Alcohol and Drug Abuse Patient Records regulations: The Federal rules restrict any use of the information to criminally investigate or prosecute any alcohol or drug abuse patient.[facility]In the event this information is protected by the Federal Confidentiality of Alcohol and Drug Abuse Patient Records regulations: The Federal rules restrict any use of the information to criminally investigate or prosecute any alcohol or drug abuse patient.[facility]In the event this information is protected by the Federal Confidentiality of Alcohol and Drug Abuse Patient Records regulations: The Federal rules restrict any use of the information to criminally investigate or prosecute any alcohol or drug abuse patient.[facility]In the event this information is protected by the Federal Confidentiality of Alcohol and Drug Abuse Patient Records regulations: The Federal rules restrict any use of the information to criminally investigate or prosecute any alcohol or drug abuse patient.[facility]In the event this information is protected by the Federal Confidentiality of Alcohol and Drug Abuse Patient Records regulations: The Federal rules restrict any use of the information to criminally investigate or prosecute any alcohol or drug abuse patient.[facility]In the event this information is protected by the Federal Confidentiality of Alcohol and Drug Abuse Patient Records regulations: The Federal rules restrict any use of the information to criminally investigate or prosecute any alcohol or drug abuse patient.[facility]In the event this information is protected by the Federal Confidentiality of Alcohol and Drug Abuse Patient Records regulations: The Federal rules restrict any use of the information to criminally investigate or prosecute any alcohol or drug abuse patient.[facility]In the event this information is protected by the Federal Confidentiality of Alcohol and Drug Abuse Patient Records regulations: The Federal rules restrict any use of the information to criminally investigate or prosecute any alcohol or drug abuse patient.[facility]In the event this information is protected by the Federal Confidentiality of Alcohol and Drug Abuse Patient Records regulations: The Federal rules restrict any use of the information to criminally investigate or prosecute any alcohol or drug abuse patient.[facility]In the event this information is protected by the Federal Confidentiality of Alcohol and Drug Abuse Patient Records regulations: The Federal rules restrict any use of the information to criminally investigate or prosecute any alcohol or drug abuse patient.[facility]In the event this information is protected by the Federal Confidentiality of Alcohol and Drug Abuse Patient Records regulations: The Federal rules restrict any use of the information to criminally investigate or prosecute any alcohol or drug abuse patient.[facility] Reason for Visit (unrecogniz ed section and content) Specialty Diagnoses / Procedures Referred By Claire pickard Referred To Contact CT IMAGING Diagnoses Lung nodules Procedures CT CHEST WO IVCON DIAGNOSTIC COMPUTED TOMOGRAPHY THORAX W/O CNTRST Khalif Armijo MD [address] [place] [address] Ct Imaging [place] [address] Referral ID Status Reason Start Date Expiration Date V isits Requested Visits Authorized [id number] Closed Auto-Generate d Referral 05/28/2023 08/26/2023 1 1 Reason Comments Hand Pain R hand pain Specialty Diagnoses / Procedures Referred By Claire pickard Referred To Contact FAMILY MEDICINE Diagnoses [facility]up [facility] [address] [place] [address] Referral ID Status Reason Start Date Expiration Date Visits Requested Visits Authorized [id number] Authorized Financial Clearance Required - Self Pay Patient Cleared - Qualified HCAP/501/FA 02/13/2022 05/14/2022 99 99 Specialty Diagnoses / Procedures Referred By Contac t Referred To Contact Family Practice / URGENT CARE CLINIC Diagnoses cold like symptoms/fever Procedures URGENT CARE Self Chio Vale APRN.CNP [address] [place] [address] Referral ID Status Reason Start Date Expiration Date Visits Requested Visits Authorized [id number] Authorized Financial Clearance Required - Self Pay Patient Cleared - Qualified HCAP/501/FA 05/13/2021 08/11/2021 99 99 Reason Comments Results Reason Onset Date Comments Erroneous encounter-disregard 08/20/2021 Reason Onset Date Comments Refill Request 09/01/2021 Specialty Diagnoses / Procedures Referred By Contac t Referred To Contact Family Practice / FAMILY MEDICINE Diagnoses coping issues Procedures 4C EST Self Rudy Lugo PA-C [address] [place] [address] Referral ID Status Reason Start Date Expiration Date Visits Requested Visits Authorized [id number] Authorized Financial Clearance Required - Self Pay Patient Cleared - Qualified HCAP/[id number]/FA 09/08/2021 12/07/2021 99 99 Reason Comments Head Injury Reason Onset Date Comments Refill Request 09/22/2021 Reason Comments Recheck Specialty Diagnoses / Procedures Referred By Contac t Referred To Contact Family Practice / FAMILY MEDICINE Diagnoses coping issues Procedures 4C EST Self Rudy Lugo PA-C [address] [place] [address] Reason Comments Appointment Reason Onset Date Comments [...] it was positive Cole Frazier MD [address] [place] [address] [facility] [address] [place] [address] Referral ID Status Reason Start Date Expiration Date Visits Requested Visits Authorized [id number] Pending Review Financial Clearance Required - Self [...] MEDICINE Diagnoses followup Procedures follow up Self [facility] [address] [place] [address] Reason Comments Ear Pain R ear pain, [...] Care Teams (unrecognized sec tion and content) Shuttle Buggy Operator Relationship Specialty Start Date End Date Khalif Armijo MD [address], [place] [address] PCP - General Family Practice 07/10/13 Shuttle Buggy Operator Relationship Specialty Start Date End Date Khalif Armijo MD [address], [place] [id number] PCP - General Family Practice 07/10/13 Shuttle Buggy Operator Relationship Specialty Start Date End Date Khalif Armijo MD [address] [place], [place] [id number] PCP - General Family Practice 07/10/13 Shuttle Buggy Operator Relationship Specialty Start Date End Date Khalif Armijo MD [address] [facility] [address] PCP - General Family Practice 07/10/13 Shuttle Buggy Operator Relationship Specialty Start Date End Date Khalif Armijo MD [address] [facility] [address] PCP - General Family Practice 07/10/13 Shuttle Buggy Operator Relationship Specialty Start Date End Date Khalif Armijo MD [address] [facility] [address] PCP - General Family Practice 07/10/13 Shuttle Buggy Operator Relationship Specialty Start Date End Date Khalif Armijo MD [address] [facility] [place] [address] PCP - General Family Practice 07/10/13 Shuttle Buggy Operator Relationship Specialty Start Date End Date Khalif Armijo MD [address] [facility] [address] PCP - General Family Practice 07/10/13 Shuttle Buggy Operator Relationship Specialty Start Date End Date Khalif Armijo MD [address] [facility] [address] PCP - General Family Practice 07/10/13 Shuttle Buggy Operator Relationship Specialty Start Date End Date Khalif Armijo MD [address] [facility] [place] [address] PCP - General Family Practice 07/10/13 Shuttle Buggy Operator Relationship Specialty Start Date End Date Khalif Armijo MD [address] [facility] [place] [address] PCP - General Family Practice 07/10/13 Shuttle Buggy Operator Relationship Specialty Start Date End Date Khalif Armijo MD [address] [facility] [place] [address] PCP - General Family Practice 07/10/13 Shuttle Buggy Operator Relationship Specialty Start Date End Date Khalif Armijo MD [address] [facility] [place] [address] PCP - General Family Practice 07/10/13 Shuttle Buggy Operator Relationship Specialty Start Date End Date Khalif Armijo MD [address] [facility] [place] [address] PCP - General Family Medicine 07/10/13 Shuttle Buggy Operator Relationship Specialty Start Date End Date Khalif Armijo MD [address] [facility] [place] [address] PCP - General Family Medicine 07/10/13 Shuttle Buggy Operator Relationship Specialty Start Date End Date Khalif Armijo MD [address] [facility] [place] [address] PCP - General Family Medicine 07/10/13 Shuttle Buggy Operator Relationship Specialty Start Date End Date Khalif Armijo MD [address] [facility] [place] [address] PCP - General Family Medicine 07/10/13 Shuttle Buggy Operator Relationship Specialty Start Date End Date Khalif Armijo MD [address] [facility] [place] [address] PCP - General Family Medicine 07/10/13 Shuttle Buggy Operator Relationship Specialty Start Date End Date Khalif Armijo MD [address] [facility] [address] PCP - General Family Medicine 07/10/13 Shuttle Buggy Operator Relationship Specialty Start Date End Date Khalif Armijo MD [address] [facility] [place] [address] PCP - General Family Medicine 07/10/13 Shuttle Buggy Operator Relationship Specialty Start Date End Date Khalif Armijo MD [address] [facility] [place] [address] PCP - General Family Medicine 07/10/13 Shuttle Buggy Operator Relationship Specialty Start Date End Date Khalif Armijo MD [address] [facility] [place] [address] PCP - General Family Medicine 07/10/13 Shuttle Buggy Operator Relationship Specialty Start Date End Date Khalif Armijo MD [address] [facility] [place] [address] PCP - General Family Medicine 07/10/13 Shuttle Buggy Operator Relationship Specialty Start Date End Date Khalif Armijo MD [address] [facility] [place] [address] PCP - General Family Medicine 07/10/13 Shuttle Buggy Operator Relationship Specialty Start Date End Date Khalif Armijo MD [address] [facility] [place] [address] PCP - General Family Medicine 07/10/13 Shuttle Buggy Operator Relationship Specialty Start Date End Date Khalif Armijo MD [address] [facility] [place] [address] PCP - General Family Medicine 07/10/13 Shuttle Buggy Operator Relationship Specialty Start Date End Date Khalif Armijo MD [address] [facility] [place] [address] PCP - General Family Medicine 07/10/13 Shuttle Buggy Operator Relationship Specialty Start Date End Date Khalif Armijo MD [address] [facility] [place] [address] PCP - General Family Medicine 07/10/13 Shuttle Buggy Operator Relationship Specialty Start Date End Date Khalif Armijo MD [address] [facility] [place] [address] PCP - General Family Medicine 07/10/13 Shuttle Buggy Operator Relationship Specialty Start Date End Date Hammon, Khalif J, MD [address] [place] [address] PCP - [facility] Medicine 07/10/13 Shuttle Buggy Operator Relationship Specialty Start Date End Date Khalif Armijo MD [address] [place], [place] [id number] PCP - General [facility] 07/10/13 FOR RECORDS PERTAINING TO PATIENTS WHO [...] BE BASED ON THE PRIMARY CLINICAL RECORDS. [facility] [employer] [facility]. provides no warranty or guarantee of the accuracy or completeness of information in this document.
[2023-06-14 10:54] LABS: Absolute Lymphocyte Count 2.32 X10^3/uL (0.83-4.51); Absolute Neutrophil Count 3.4 X10^3/uL (2.0-7.7); Basophil# 0.03 X10^3/uL; Basophil% 0.5 % (0-1); Eosinophil# 0.08 X10^3/uL; Eosinophils% 1.3 % (0-5); Hematocrit 38.5 % (37-47); Hemoglobin 13.1 g/dL (12.0-15.0); Lymphocyte # 2.32 X10^3/ul (0.83-4.51); Lymphocyte % 36.7 % (19-41); Mean Corpuscular Hgb 32.2 pg (27.0-32.0); Mean Corpuscular Volume 94.6 fL (81-99); Mean Platelet Vol. 10.4 fl (6.2-12.0); Monocyte# 0.47 X10^3/uL; Monocyte% 7.4 % (0-10); NRBC Flagged by Analyzer 0 % (0-5); Neutrophil # 3.42 X10^3/uL (2.7-7.7); Neutrophil % 53.9 % (47-70); Platelet Count 247 K/mm3 (150-450); RBC Distribution Width CV 13.2 % (11.6-14.6); RBC Distribution Width SD 46.1 fl (35.1-43.9); Red Blood Count 4.07 M/mm3 (4.2-5.4); White Blood Count 6.3 K/mm3 (4.4-11.0)
[2023-06-14 10:54] LABS: Mucous, Urine 0 SEEN /hpf (<or=2+)
--- NOTE | 2023-06-14 10:55 | CT_ITS ---
STUDY: CT ABDOMEN AND PELVIS WITHOUT CONTRAST REASON FOR EXAM: Female, 47 years old. Kidney Stone RADIATION DOSAGE (If Supplied By Facility): CTDIvol = ( 16.64 ) mGy, DLP = ( 960.54 ) mGycm TECHNIQUE: Transaxial images were obtained from the dome of the diaphragm to the symphysis pubis without oral contrast, and without intravenous contrast. Sagittal and coronal images were reconstructed. Individualized dose optimization techniques were used for this CT. COMPARISON: Comparison is made with prior study dated February 04, 2023. FINDINGS: The visualized lung bases are unremarkable. Coronary artery calcification. Normal liver. Normal gallbladder and extrahepatic biliary system. Normal spleen. Normal pancreas. Normal bilateral adrenal glands. Tiny nonobstructive right intrarenal calculi. There is a 2 mm nonobstructive calculus in the upper pole calyx of the left kidney. A 2 mm calculus is also seen in the midpole calyx of the left kidney. Mild degree of left hydronephrosis due to a 3 mm calculus at the left ureterovesical junction. Normal visualized stomach. Normal small intestine. Normal colon. The appendix is visualized and appears normal. There is scattered atherosclerotic calcification of the abdominal aorta, without a demonstrated aneurysm. Normal inferior vena cava. Normal retroperitoneum. Normal urinary bladder. There is absence of the uterus consistent with a prior hysterectomy. Normal abdominal wall. Normal osseous structures. CT/Abdomen/Pelvis without Cont IMPRESSION: 3 mm calculus at the left ureterovesical junction causing mild degree of the left hydronephrosis. Nonobstructive bilateral intrarenal calculi. Electronically Signed: Julio C Prasad MD at 11:21 EST ,
[2023-06-14 10:57] LABS: Color, Urine Yellow (Yellow); Glucose, Dipstick Normal (Normal); Ketone-Dipstick Negative (Negative); Leukocyte Esterase-Dipstick 100 /ul (Negative); Nitrite-Dipstick Negative (Negative); Occult Blood-Urine 250 /ul (Negative); Protein-Dipstick 30 mg/dl (Negative); Specific Gravity, Urine 1.025 (1.002-1.030); Urine Bilirubin Dipstick Negative (Negative); Urine Clarity Sl. Cloudy (Clear); Urine Urobilinogen 1 mg/dl (Normal)
[2023-06-14 10:58] LABS: Anion Gap 7 (5-15); BUN 15 mg/dL (7-18); BUN/Creat Ratio 19.5 RATIO (10-20); Calcium,Total 9.1 mg/dL (8.5-10.1); Chloride 106 mmol/L (98-107); Creatinine, Serum 0.77 mg/dL (0.55-1.02); EST Glomerular Filtration Rate 86 mL/min (>60); Est Glom Filt Rate - Afr Amer 104 mL/min (>60); Estimated Creatinine Clearance 112.69 ml/min; Glucose 109 mg/dL (74-106); Potassium 3.6 mmol/L (3.5-5.1); Sodium Level 138 mmol/L (136-145)
[2023-06-14 11:22] LABS: Internal QC Validated? YES +Cl - CLEAR BKGD
[2023-06-14 11:23] LABS: Pregnancy, Serum, hCG Quali. POSITIVE Negative
[2023-06-14 11:24] LABS: Bacteria 1+ /hpf (None Seen); Red Blood Cells-Urine 25-50 SEEN /hpf (0-5); Squamous Epithelial Cells - UA 0-5 SEEN /hpf (5-10); White Blood Cells 10-25 SEEN /hpf (0-5)
[2023-06-14] MEDS: Smz/Tmp Ds Tablet 1 TABLET PO (11:49)
== END 2023-06-14 12:37 | disposition home or self-care (01) ==
PROVIDERS: Emergency Provider Emergency Medicine; PCP Family Medicine; Visit Provider Emergency Medicine
DX: N20.1 Calculus of ureter (principal); N39.0 Urinary tract infection, site not specified; F17.210 Nicotine dependence, cigarettes, uncomplicated
CPT/HCPCS: 74176; 80048; 81001; 84703; 85025; 87086; 96361; 96374; 99283; J7030; A4216

== ENCOUNTER 2024-09-11 02:42 | Emergency (ER) | payer BC, SELFPAY ==
[2024-09-11 02:44] VITALS: BP 168/94; PULSE 94; RESP 17; TEMP 36.7; O2SAT 98; BMI 31.2
--- NOTE | 2024-09-11 02:50 | EDS_ITS ---
HPI History of Present Illness Chief Complaint: Headache Informant: patient Narrative Narrative: History of migraines followed by neurology. Yesterday morning noted onset of migraine symptoms neck pain. 10 PM symptoms hit her. Photophobia phonophobia nausea without vomiting. She states not due for sumatriptan refill till next week. States typically injection does help her symptoms. Denies head trauma. Denies fever. Prior similar symptoms: Yes PFSH PFSH Medical History Psoriasis Psoriasis Fibromyalgia Migraines Kidney stones Hypokalemia Bipolar 1 disorder History of venous thromboembolism Home Medications ?Medication ?Instructions ?Recorded ?Last Taken ?Type baclofen 10 mg tablet 10 mg PO TID BACK PAIN 04/2702/01/23 History sumatriptan succinate 100 mg tablet 100 mg PO .X1 PRN 04/26/20 01/31/23 History acetaminophen 325 mg tablet (Aphen) 650 mg PO Q4H PRN pain 02/01/23 02/01/23 History fremanezumab-vfrm 225 mg/1.5 mL mg subcut 09/11/24 Unk nown History subcutaneous syringe (Ajovy Syringe) ondansetron 4 mg disintegrating 4 mg PO Q8H PRN PRN Na usea #10 tabs 09/11/24 Unknown Rx tablet rimegepant 75 mg disintegrating PO 09/11/24 Unknown Hi story tablet (Nurtec ODT) Allergy/AdvReac Type Severity Reaction Status Date / Time Cephalosporins Allergy Severe Anaphylaxis Verified 09/11/24 02:44 adhesive tape Allergy Swelling Verified 09/11/24 02:44 Penicillins Allergy Anaphylaxis Verified 09/11/24 02:44 bupropion (From Wellbutrin) AdvReac Other Verified 09/11/24 02:44 diphenhydramine HCl (From AdvReac IV route Verified 09/11/24 02:44 Benadryl) causes panic attack. can take po Surgical History H/O: hysterectomy Social History Smoking Status: Current every day smoker tobacco type: cigarettes substance use type: does not use ROS ROS ED Constitutional Constitutional ED: Denies chills, fever(s) or sweats Eyes Eyes: Reports other Details: Photophobia ENT ENT ED: Denies sore throat Cardiovascular Cardiovascular: Denies chest pain, leg edema, palpitations or racing heartbeat Respiratory/Chest Respiratory/Chest: Denies cough, dyspnea or dyspnea on exertion Gastrointestinal Gastrointestinal: Reports nausea; Denies abdominal pain, diarrhea or vomiting Genitourinary Genitourinary ED: Denies dysuria, hematuria or urinary frequency Musculoskeletal Musculoskeletal: Denies back pain, extremity pain or neck pain Integumentary Denies rash or wounds Neurologic Neurologic: Reports headache(s); Denies paresthesias or weakness EXAM Physical Exam Const Vital Signs: 09/11/24 02:44 09/11/24 03:26 Temperature 98.1 F 98.4 F Temperature Source Oral Pulse Rate 94 68 Respiratory Rate 17 16 Blood Pressure 168/94 H 154/74 H Blood Pressure Mean 118 100 Pulse Ox 98 99 Oxygen Delivery Method Room Air Positive well nourished and well developed General Appearance ED: well developed and NAD HEENT Reports moist mucous membranes normocephalic and atraumatic Eyes General Eye ED: Yes normal appearance of both eyes Neck full ROM and no meningeal signs Chest Wall Chest: Negative for tenderness Resp normal respiratory effort and normal air movement Effort and Inspection: symmetric chest movement; Negative for respiratory distress Cardio regular rate, regular rhythm and no murmurs Peripheral Pulses: pulses 2+ throughout GI normal to inspection, nondistended, normoactive bowel sounds and non-tender Palpation: Negative for guarding or rebound tenderness present Extremity normal to inspection General Extremety ED: Negative for edema or tenderness General Extremity: Negative for edema Neuro oriented x3, CN's II-XII intact bilaterally and no sensory deficits noted Sensorium / Orientation: awake and alert Skin no rashes or lesions noted and no wounds MDM MDM MDM Narrative Medical decision making narrative: Interventions / MDM: Differential diagnosis: Migraine headache, vomiting Diagnosis considered but do not suspect: No clinical meningitis My EKG interpretation: N/A Imaging independently reviewed and interpreted by myself: N/A External documents reviewed: N/A Test considered but not ordered:N/A ED course: Vital stable no focal deficits. History of migraines with similar presentation. She improved with subcu Imitrex in the past. This will be ordered. Will reevaluate. 0325: Headache was almost resolved. Clinically feeling better. Is ready go home. 0327: Per nursing he had a bout of emesis. Headache still nearly resolved. Will treat with Zofran ODT. Will reevaluate. [place] much better reevaluation. Prescription Zofran sent to her pharmacy. 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 It may contain incorrect words, spelling, and punctuation that were not noted in checking the note before signing. Discharge Plan Triage Chief Complaint: Headache ED Provider: Orion Maloney Dx/Rx/DC Orders Clinical Impression: Headache, migraine, Vomiting Instructions: ED, Migraine (Classical), ED Vomiting (Adult) Prescriptions: New ondansetron 4 mg tablet,disintegrating 4 mg PO Q8H PRN PRN (Reason: Nausea) Qty: 10 0RF No Action baclofen 10 MG tablet 10 mg PO TID Patient Comments: Take 1 tablet by mouth three times daily. sumatriptan succinate 100 MG tablet 100 mg PO .X1 PRN acetaminophen [Aphen] 325 mg tablet 650 mg PO Q4H PRN (Reason: pain) Ajovy Syringe 225 mg/1.5 mL syringe SUBCUT Patient Comments: [NO ORIGINAL SIG] Nurtec ODT 75 mg tablet,disintegrating PO Stand Alone Forms: ED Work / School Excuse Primary Care Provider: Dionicio Armijo Referrals: Dionicio Armijo MD [Primary Care Provider] - 1 Week Activity Restrictions/Additional Instructions: Headache improved with Imitrex. Continue oral fluid hydration use Zofran as needed for nausea symptoms. Follow-up with your doctors. Print Language: Occitan Disposition Disposition: Home, Self Care Discharge Date/Time: 09/11/24 03:47
[2024-09-11] MEDS: SUMAtriptan 6 MG/0.5 ML Vial SC (03:00)
[2024-09-11 03:26] VITALS: BP 154/74; PULSE 68; RESP 16; TEMP 36.9; O2SAT 99
[2024-09-11] MEDS: Ondansetron ODT 4 MG Tablet PO (03:37)
== END 2024-09-11 03:47 | disposition home or self-care (01) ==
PROVIDERS: Emergency Provider Emergency Medicine; PCP Family Medicine; Visit Provider Emergency Medicine
DX: G43.909 Migraine, unspecified, not intractable, without status migrainosus (principal); R11.10 Vomiting, unspecified; F17.210 Nicotine dependence, cigarettes, uncomplicated
CPT/HCPCS: 96372; 99282; J3030

== ENCOUNTER 2025-03-17 08:11 | Emergency (ER) | payer BC, SELFPAY ==
[2025-03-17 08:11] VITALS: BP 143/83; PULSE 101; RESP 18; TEMP 36.4; O2SAT 99
--- NOTE | 2025-03-17 08:24 | RAD_ITS ---
PROCEDURE: RAD/Lumbar Spine 2 or 3 Views
--- NOTE | 2025-03-17 08:26 | ED.VIS.BACK ---
HPI History of Present Illness Chief Complaint: Back Informant: patient Narrative Narrative: Patient is a 49-year-old female with a history of degenerative disc disease, bulging disc, and fibromyalgia, presenting with severe left-sided gluteal pain occasionally radiating to the ankle. - Pain began yesterday morning, initially described as a charley horse in the left gluteal region. - Onset was sudden, with a sensation of popping. Occured while doing a lot of lifting and carrying boxes. - Pain has progressively worsened, now radiating to the knee and ankle, described as fire going through my leg when standing. - Pain is constant and severe, unaffected by position (standing, sitting, or lying down). - Associated with shaking due to pain. - Denies abdominal pain. - Reports constipation, attributing it to pain during defecation. - Denies urinary incontinence or retention. - Recent history of pneumonia, completed a course of steroids. - Taking baclofen and Lyrica daily for fibromyalgia; took baclofen and Tylenol today. - Allergic to penicillin. [facility] Medical History Psoriasis Psoriasis Fibromyalgia Migraines Kidney stones Hypokalemia Bipolar 1 disorder History of venous thromboembolism Home Medications ?Medication ?Instructions ?Recorded ?Last Taken ?Type baclofen 10 mg tablet 10 mg PO TID BACK PAIN 04/27/19 02/01/23 History sumatriptan succinate 100 mg tablet 100 mg PO .X1 PRN 04/26/20 01/31/23 History acetaminophen 325 mg tablet (Aphen) 650 mg PO Q4H PRN pain 02/01/23 02/01/23 History fremanezumab-vfrm 225 mg/1.5 mL mg subcut 09/11/24 Unknown History subcutaneous syringe (Ajovy Syringe) ondansetron 4 mg disintegrating 4 mg PO Q8H PRN PRN Nausea #10 tabs 09/11/24 Unknown Rx tablet rimegepant 75 mg disintegrating PO 09/11/24 Unknown History tablet (Nurtec ODT) hydrocodone-acetaminophen 5-325mg 1 tab PO Q6H PRN PRN Pain 3 days 03/17/25 Unknown Rx 5mg-325mg #10 TABLETS Allergy/AdvReac Type Severity Reaction Status Date / Time Cephalosporins Allergy Severe Anaphylaxis Verified 03/17/25 08:11 adhesive tape Allergy Swelling Verified 03/17/25 08:11 Penicillins Allergy Anaphylaxis Verified 03/17/25 08:11 bupropion (From Wellbutrin) AdvReac Other Verified 03/17/25 08:11 diphenhydramine HCl (From AdvReac IV route Verified 03/17/25 08:11 Benadryl) causes panic attack. can take po Surgical History H/O: hysterectomy Social History Smoking Status: Current every day smoker tobacco type: cigarettes substance use type: does not use ROS ROS ED Constitutional Constitutional ED: Denies chills or fever(s) Gastrointestinal Gastrointestinal: Denies abdominal pain, constipation, fecal incontinence, nausea or vomiting Genitourinary Genitourinary ED: Reports other Details: no urinary retention ; Denies abdominal discomfort or urinary incontinence Musculoskeletal Musculoskeletal: Reports as per HPI and back pain; Denies neck pain Integumentary Denies rash or wounds Neurologic Neurologic: Denies headache(s), paresthesias or weakness EXAM Physical Exam Const Vital Signs: 03/17/25 08:11 Temperature 97.6 F L Temperature Source Oral Pulse Rate 101 H Respiratory Rate 18 Blood Pressure 143/83 H Blood Pressure Mean 103 Pulse Ox 99 Oxygen Delivery Method Room Air Positive well nourished and well developed General Appearance ED: well developed and NAD HEENT Negative for trauma or tenderness Eyes PERRL and EOMs intact bilaterally Neck full ROM and supple GI normal to inspection, nondistended, normoactive bowel sounds, soft to palpation and non-tender Back/Spine normal to inspection Back/Spine Narrative: Ipsilateral left lower extremity straight leg raise causes significant increased back pain but no reproduced radicular symptoms. Negative cross straight leg raise. Lumbar Spine / Lower Back: ROM limited, paraspinal muscle tenderness left and straight leg raise negative bilaterally; Negative for lumbar spinal tenderness Extremity normal to inspection, full ROM and no pedal edema Neuro oriented x3 and no sensory deficits noted Sensorium / Orientation: alert Motor Exam: strength 5/5 throughout and clonus absent Deep Tendon Reflexes: Rt Patellar (L4): 2+, Lt Patellar (L4): 2+, Rt Ankle (S1): 2+ and Lt Ankle (S1): 2+ Deep Tendon Reflexes Back: Rt Patellar (L4): 2+, Lt Patellar (L4): 2+, Rt Ankle (S1): 2+ and Lt Ankle (S1): 2+ Plantar Reflex: Downgoing: bilateral Psych mental status grossly normal and thought process normal Skin no rashes or lesions noted and no wounds MDM MDM MDM Narrative Medical decision making narrative: Assessment: The patient is a 49-year-old female with PMH of degenerative disc disease, multiple prior coccygeal fractures, fibromyalgia, and recent pneumonia treated with steroids presenting for acute onset left buttock and lower back pain radiating to the knee and ankle after lifting boxes yesterday. Exam shows focal tenderness over left lower paraspinal/gluteal region, painful straight-leg raise on the affected side without reproducible radicular pain, intact reflexes, and no bowel or bladder dysfunction. Lumbar spine radiographs reveal no acute fracture and preserved intervertebral disc heights, making vertebral fracture or acute disc collapse unlikely. Given the normal imaging and exam, the presentation is most consistent with muscular strain versus sacroiliac irritation; strain of muscle, fascia and tendon of lower back is the working diagnosis. Sciatica in differential, but clinically testing negative at this time. Acute management is not different than supportive care since no signs of symptoms of cauda equina syndrome or acute neurologic compromise. Plan: - Provided ED analgesia (medication unspecified on transcript) for symptom relief. - Issued short-term prescription for stronger pain medication to use at home. - Discharged home with instructions to use heat, gentle stretching, tennis-ball myofascial release to left SI region, and continue baclofen/Lyrica. - Advised follow-up with primary physician (Dr. Armijo) if pain not improving within 1?2 weeks or sooner for new neurologic deficits. - Patient has reliable transportation with daughter and agrees with plan. Diagnostics: - Lumbar spine x-rays: no acute fracture; vertebral alignment maintained; disc spaces preserved. Independently reviewed by , Kun Newby. Reevaluations: - After imaging review, discussed results with patient; pain improved slightly with in-ED therapy, neurologic exam unchanged. Radiography Diagnostic Testing: Clinical Impression(s) from Imaging Studies Lumbar Spine X-Ray 03/17/25 08:24 IMPRESSION: No acute bony abnormalities. No significant disc disease on x-ray. Reading Location: [facility] Discharge Plan Triage Chief Complaint: Back ED Provider: Kun Newby Dx/Rx/DC Orders Clinical Impression: Acute myofascial strain of lumbosacral region Instructions: Understanding Sacroiliac Strain, ED Back Sprain/Strain, ED Sciatica Prescriptions: New hydrocodone-acetaminophen 5-325 mg tablet 1 tab PO Q6H PRN PRN (Reason: Pain) 3 Days Qty: 10 0RF No Action baclofen 10 MG tablet 10 mg PO TID Patient Comments: Take 1 tablet by mouth three times daily. sumatriptan succinate 100 MG tablet 100 mg PO .X1 PRN acetaminophen [Aphen] 325 mg tablet 650 mg PO Q4H PRN (Reason: pain) Ajovy Syringe 225 mg/1.5 mL syringe SUBCUT Patient Comments: [NO ORIGINAL SIG] Nurtec ODT 75 mg tablet,disintegrating PO ondansetron 4 mg tablet,disintegrating 4 mg PO Q8H PRN PRN (Reason: Nausea) Qty: 10 0RF Primary Care Provider: Dionicio Armijo Referrals: Dionicio Armijo MD [Primary Care Provider, Medical] - 1 Week if not improving Activity Restrictions/Additional Instructions: - Fill the short-term prescription for stronger pain relief provided today and take it as directed to help manage pain and support sleep - Continue your regular baclofen and Lyrica doses for fibromyalgia - Use warm showers and stay as active as you comfortably can to ease muscle tension - Try self-massage by lying on your back and rolling a tennis ball at the painful area near your SI joint; stop if it significantly worsens your pain - X-ray results showed no fractures and normal disc spaces in your lower spine - If your pain does not improve or worsens after one to two weeks, follow up with Dr. Armijo for further evaluation Print Language: [place] Islander Disposition Disposition: Home, Self Care
[2025-03-17] MEDS: Orphenadrine 60 MG/2 ML Ampul IM (08:31)
[2025-03-17 09:40] VITALS: BP 136/87; PULSE 82; RESP 16; TEMP 36.4; O2SAT 99
== END 2025-03-17 09:40 | disposition home or self-care (01) ==
PROVIDERS: Emergency Provider Emergency Medicine; PCP Family Medicine; Visit Provider Emergency Medicine
DX: S39.012A Strain of muscle, fascia and tendon of lower back, initial encounter (principal); X50.0XXA Overexertion from strenuous movement or load, initial encounter; F17.210 Nicotine dependence, cigarettes, uncomplicated
CPT/HCPCS: 72100; 96372; 99282

== ENCOUNTER 2025-04-16 20:23 | Emergency (ER) | payer BC, SELFPAY ==
[2025-04-16 20:25] VITALS: BP 194/159; PULSE 147; RESP 24; TEMP 35.5; O2SAT 96
[2025-04-16] MEDS: Lidocaine 5% Patch 1 PATCH TOPICAL (20:55)
--- OUTSIDE RECORDS SUMMARY | 2025-04-16 20:55 | XMS RPT_ITS | CCD ---
Author Organization [facility] Care Team Providers Care Hand Paster Name Role Phone Dionicio Brower MD Primary Care Provider NO, PHYSICIAN Primary Care Unavailable MILA CLOUD Attending Unavailable Dionicio Brower MD Primary Care Provider Dionicio Brower MD Primary Care Provider Keith MAKEUP SALES CONSULTANT.Bruna HERNANDEZ Unavailable Suppan MAKEUP SALES CONSULTANT.TELEGRAPH MESSENGER, Debbie A Unavailable Suppan MAKEUP SALES CONSULTANT.TELEGRAPH MESSENGER, Debbie A Unavailable [phone] [place] MAKEUP SALES CONSULTANT.TELEGRAPH MESSENGER, Debbie A Unavailable Dionicio Brower Primary Care Unavailable Kun Newby Attending Unavailable Dionicio Brower Primary Care Unavailable Orion Maloney Attending Unavailable DIONICIO BROWER Attending Unavailable DIONICIO BROWER Primary Care Unavailable DIONICIO BROWER Referring Unavailable VANI MCCANN Attending Unavailable DIONICIO BROWER Primary Care Unavailable DIONICIO BROWER Attending Unavailable DIONICIO BROWER Primary Care Unavailable INOCENTEDIONICIO Primary Care Unavailable ROSA DOSS Attending Unavailable DIONICIO BROWER Referring Unavailable DIONICIO BROWER Primary Care Unavailable ALIX DOUGLAS Attending Unavailable BRUNA PARKER Attending Unavailable DIONICIO BROWER Primary Care Unavailable INOCENTE, DIONICIO Brewster Primary Care Unavailable ALIX DOUGLAS Referring Unavailable DIONICIO BROWER Primary Care Unavailable ALIX DOUGLAS Attending Unavailable DIONICIO BROWER Attending Unavailable DIONICIO BROWER Primary Care Unavailable INOCENTEDIONICIO Primary Care Unavailable DIONICIO BROWER Attending Unavailable DIONICIO BROWER Primary Care Unavailable DIONICIO BROWER Referring Unavailable DIONICIO BROWER Attending Unavailable DIONICIO BROWER Primary Care Unavailable DIONICIO BROWER Attending Unavailable DIONICIO BROWER Primary Care Unavailable DIONICIO BROWER Primary Care Unavailable ALYSSA TENORIOA Lynsey Referring Unavailable DIONICIO BROWER Primary Care Unavailable Allergies Allergy Classification Reported Allergen(s) Allergy Type Date of Onset Reaction(s) Facility Acetaminophen / HYDROcodone (1 source) Acetaminophen / HYDROcodone Drug Allergy 11-17-19 GI [facility] Penicillins (antibiotic) (1 source) Penicillins Drug Allergy 04-14-20 Unknown [facility] Work Phone: (20 sources) acetaminophen / HYDROcodone; Translations: [HYDROCODONE-ACETA MINOPHEN] Drug Allergy 11-17-19 GI [facility] Repository (20 sources) Penicillins; Translations: [PENICILLINS] Propensity to adverse reactions to drug (disorder) 04-14-20 Unknown [facility] Repository (1 source) OTHER; Translations: [OTHER] Propensity to adverse reactions (disorder) 04-16-20 [facility] Repository (20 sources) vidaylin vitamins [Other] Propensity to adverse reactions 04-16-20 GI [facility] Work Phone: (3 sources) Cephalosporins (Antibiotic); Translations: [CEPHALOSPORINS] Propensity to adverse reactions to drug (disorder) 07-26-19 Anaphylaxis [facility] Repository (2 sources) Adhesive Tape; Translations: [adhesive tape] Allergy to substance 06-14-19 Swelling [facility] (1 source) buPROPion Drug Allergy 06-14-19 Other [facility] (2 sources) diphenhydrAMINE; Translations: [diphenhydramine HCl] Drug Allergy 06-14-19 IV route causes panic attack. can take po [facility] (1 source) buPROPion Drug Allergy 03-17-20 [facility] Repository Medications Current Medications Medication Drug Class(es) Dates Sig (Normalized) Sig (Original) acetaminophen 325 mg oral tablet (1 source) Start: 02-01-2023 Acetaminophen (Aphen) 325 mg tablet Active 650 MG PO Q4H January 31, 2023 11:00pm acetaminophen 325 mg / HYDROcodone bitartrate 5 mg oral tablet (8 sources) Opioid Agonist Start: 06-14-2023 take 1 tablet by mouth every six hours Hydrocodone-Acetami nophen Active 1 TABLET PO EVERY 6 HOURS 12 June 14, 2023 Start: 07-23-2022 End: 02-01-2023 take 1 tablet by mouth every four hours as needed Hydrocodone-Acetaminophen Discontinued 1 TABLET PO EVERY 4 HOURS NEEDED 10 July 23, 2022 February 01, 2023 1:25pm Start: 03-09-2021 End: 02-01-2023 take 1 tablet by mouth every six hours as needed Hydrocodone-Acetaminophen Discontinued 1 TABLET PO EVERY 6 HOURS NEEDED 12 March 09, 2021 February 01, 2023 1:25pm Start: 11-11-2020 End: 02-01-2023 take 1 tablet by mouth every eight hours Hydrocodone-Acetaminophen Discontinued 1 TABLET PO Q8H 9 November 11, 2020 February 01, 2023 1:25pm Start: 02-24-2014 End: 04-22-2014 take 1 tablet by mouth every six hours as needed Hydrocodone-Acetaminophen Discontinued 1 TABLET PO EVERY 6 HOURS NEEDED February 24, 2014 9:47am April 22, 2014 10:33am Start: 10-04-2013 End: 04-22-2014 take 1 tablet by mouth every four hours as needed Hydrocodone-Acetaminophen Discontinued 1 - 2 TABLET PO EVERY 4 HOURS NEEDED December 14, 2013 11:00pm April 22, 2014 10:33am albuterol 0.83 mg/ml inhalation solution (20 sources) beta2-Adrenergic Agonist Start: 04-11-2024 albuterol (PROVENTIL ) 2.5 mg /3 mL (0.083 %) nebulizer solution Indications: Bronchitis Use 3 mL via nebulizer every 6 hours as needed for wheezing/shortness of breath. Use over 5-15minutes. 40 mL 04/11/2024 Active Start: 10-18-2019 take 2 puff(s) by in halation every six hours as needed for wheezing albuterol HFA (PROVENTIL HFA, VENTOLIN HFA) 90 mcg/actuation inhaler Inhale 2 Puffs as instructed every 6 hours as needed for Wheezing/Shortness of Breath. 1 Inhaler 10/18/2019 Active Comment on above: Inhale 2 Puffs as in structed every 6 hours as needed for Wheezing/Shortness of Breath. ALPRAZolam 0.5 mg oral tablet (8 sources) Benzodiazepine Start: End: take 1 tablet by mouth every 30 days at bedtime as needed ALPRAZolam (XANAX) 0.5 mg tablet Indications: PTSD (post-traumatic stress disorder) , Bipolar 1 disorder (HCC) , Schizoaffective disorder, bipolar type (HCC) Take 1 tablet by mouth at bedtime as needed for up to 30 days. 30 tablet 0 11/05/2021 12/05/2021 Active Start: 09-08-2021 End: 10-08-2021 take 1 tablet by mouth every 30 days at bedtime as needed ALPRAZolam (XANAX) 0.5 mg tablet Indications: PTSD (post-traumatic stress disorder) , Bipolar 1 disorder (HCC) , Schizoaffective disorder, bipolar type (HCC) Take 1 tablet by mouth at bedtime as needed for up to 30 days. 30 tablet 0 09/08/2021 10/08/2021 Active Comment on above: Take 1 tablet by nasra th at bedtime as needed for up to 30 days. azithromycin 250 mg oral tablet (4 sources) Macrolide Antimicrobial Start: 01-24-2024 End: 01-29-2024 azithromycin (ZITHROMAX Z-FELIPE) 250 mg tablet Indications: Acute otitis media, right Take 2 tablets day one, then, 1 tablet daily until gone. 6 tablet 01/24/2024 01/29/2024 Active Start: 05-25-2023 End: 05-30-2023 azithromycin (ZITHROMAX Z-PA K) 250 mg tablet Indications: Acute otitis media, right Take 2 tablets day one, then, 1 tablet daily until gone. 6 tablet 05/25/2023 05/30/2023 Start: 04-08-2022 End: 04-13-2022 take 2 tablets by mouth once daily, then take 1 tablet by mouth once daily azithromycin (ZITHROMAX) 250 mg tablet Indications: Other acute nonsuppurative otitis media of right ear, recurrence not specified Take 2 tablets by mouth once daily for 1 day, THEN 1 tablet once daily for 4 days. 6 tablet 0 04/08/2022 04/13/2022 Active Start: 05-08-2018 End: 05-12-2018 take 250 mg by mouth once daily Azithromycin Discontinued 250 MG PO DAILY 4 May 08, 2018 12:00am May 12, 2018 12:11am Comment on above: Take 2 tablets by mo [facility] once daily for 1 day, THEN 1 tablet once daily for 4 days. baclofen 10 mg oral tablet (20 sources) gamma-Aminobutyric Acid-ergic Agonist Start: 11-13-2024 End: 02-11-2025 take 1 tablet by mouth three times daily baclofen 10 mg tablet Take 1 tablet by mouth three times a day. 90 tablet 2 11/13/2024 02/11/2025 Active Start: 08-09-2024 End: 11-07-2024 take 1 tablet by mouth three times daily baclofen 10 mg tablet Take 1 tablet by mouth three times a day. 90 tablet 2 08/09/2024 11/07/2024 Active Start: 04-19-2023 End: 05-28-2024 take 1 tablet by mouth three times daily baclofen 10 mg tablet Take 1 tablet by mouth three times a day. 90 tablet 2 02/28/2024 05/28/2024 Active Start: 12-07-2022 End: 03-07-2023 take 1 tablet by mouth every eight hours as needed baclofen 10 mg tablet Take 1 tablet by mouth three times daily as needed (muscle spasms). 90 tablet 2 12/07/2022 03/07/2023 Active Start: 04-27-2019 End: 10-05-2022 take 1 tablet by mouth three times daily baclofen (LIORESAL) 10 mg tablet Take 1 tablet by mouth three times daily. 90 tablet 2 04/21/2021 08/12/2021 Discontinued Comment on above: Take 1 tablet by nasra th three times daily. Take 1 tablet by nasra th three times daily as needed (muscle spasms). Take 1 tablet by nasra th three times a day as needed (muscle spasms). benzonatate 100 mg oral capsule (20 sources) Non-narcotic Antitussive Start: End: take 2 capsules by mouth every eight hours as needed benzonatate (TESSALON PERLE) 100 mg capsule Take 2 capsules by mouth three times a day as needed for cough for up to 7 days. 30 capsule 04/08/2024 04/15/2024 Active Start: 08-11-2023 End: 10-22-2023 take 1 capsule by mouth three times daily as needed benzonatate (TESSALON PERLES) 100 mg capsule Indications: URI, acute , Bronchitis Take 1 capsule by mouth three times a day as needed. 30 capsule 0 08/11/2023 10/22/2023 Discontinued Start: 05-11-2023 End: 01-24-2024 take 2 capsules by mouth every eight hours as needed benzonatate (TESSALON PERLES) 100 mg capsule Take 2 capsules by mouth three times a day as needed. 30 capsule 05/11/2023 01/24/2024 Discontinued Comment on above: Take 2 capsules by m outh three times a day as needed. Take 1 capsule by mo uth three times a day as needed. cefdinir 300 mg oral capsule (2 sources) Cephalosporin Antibacterial Start: 2 End: 2 take 1 capsule by mouth twice daily cefdinir (OMNICEF) 300 mg capsule Take 1 capsule by mouth twice daily for 7 days. 14 capsule 0 03/16/2022 03/23/2022 Active Comment on above: Take 1 capsule by mo uth twice daily for 7 days. doxycycline hyclate 100 mg oral tablet (7 sources) Tetracycline-class Drug Start: 4 End: 4 take 1 tablet by mouth twice daily doxycycline (VIBRA-TABS) 100 mg tablet Indications: Bronchitis Take 1 tablet by mouth two times a day for 10 days. 20 tablet 04/11/2024 04/21/2024 Active Start: 08-11-2023 End: 08-21-2023 take 1 tablet by mouth twice daily doxycycline monohydrate 100 mg tablet Indications: Acute otitis media, right , Bronchitis Take 1 tablet by mouth two times a day for 10 days. 20 tablet 0 08/11/2023 08/21/2023 Active Start: 04-26-2023 End: 05-03-2023 take 1 tablet by mouth twice daily doxycycline monohydrate 100 mg tablet Take 1 tablet by mouth two times a day for 7 days. 14 tablet 0 04/26/2023 05/03/2023 Active Start: 02-01-2023 take 100 mg by mouth twice daily Doxycycline Hyclate Active 100 MG PO TWICE A DAY January 31, 2023 11:00pm Comment on above: Take 1 tablet by nasra th two times a day for 7 days. Take 1 tablet by nasra th two times a day for 10 days. 1 ml erenumab-aooe 70 mg/ml auto-injector (2 sources) Start: inject 1 mL by subcutaneous injection every month erenumab-aooe (AIMOVIG AUTOINJECTOR) 70 mg/mL auto-injector Indications: Migraine without aura and with status migrainosus, not intractable Inject 1 mL subcutaneously once every month. Do not shake. 70 mL 2 12/06/2024 Active famotidine 20 mg oral tablet (11 sources) Histamine-2 Receptor Antagonist Start: End: take 1 tablet by mouth at bedtime as needed famotidine (PEPCID) 20 mg tablet Indications: Gastroesophageal reflux disease without esophagitis Take 1 tablet by mouth at bedtime as needed. 30 tablet 2 10/22/2023 04/19/2024 Active Start: 10-04-2020 End: 02-01-2023 take 1 tablet by mouth twice daily Famotidine (Pepcid) 20 mg tablet Discontinued 20 MG PO TWICE A DAY October 03, 2020 11:00pm February 01, 2023 1:24pm gabapentin 600 mg oral tablet (20 sources) Anti-epileptic Agent Start: 02-01-2023 take 600 mg by mouth every eight hours Gabapentin Active 600 MG PO Q8H January 31, 2023 11:00pm Start: 02-19-2022 End: 10-13-2023 take 1 tablet by mouth three times daily gabapentin (NEURONTIN) 600 mg tablet Indications: DDD (degenerative disc disease), cervical , Lumbar spondylosis Take 1 tablet by mouth three times daily for 90 days. 90 tablet 5 02/19/2022 09/21/2022 Discontinued Start: 04-27-2019 End: 01-24-2024 take 1 capsule by mouth three times daily gabapentin (NEURONTIN) 400 mg capsule Take 1 capsule by mouth three times daily for 90 days. 90 capsule 07/15/2021 08/12/2021 Discontinued Comment on above: Take 1 capsule by mo [facility] three times daily for 90 days. Take 1 tablet by nasra th three times daily for 90 days. hydrOXYzine pamoate 25 mg oral capsule (20 sources) Antihistamine Start: take 1 capsule by mouth four times daily hydrOXYzine pamoate (VISTARIL) 25 mg capsule Indications: Anxiety Take 1 capsule by mouth four times daily. 30 capsule 05/24/2024 Active Start: 10-13-2023 End: 01-24-2024 take 1 tablet by mouth every six hours as needed hydrOXYzine HCl (ATARAX) 25 mg tablet Take 1 tablet by mouth every 6 hours as needed for itching/rash or anxiety. 30 tablet 11/15/2023 01/24/2024 Discontinued ibuprofen 800 mg oral tablet (20 sources) Nonsteroidal Anti-inflammatory Drug Start: 09-21-2022 take 1 tablet by mouth every eight hours as needed ibuprofen (MOTRIN) 800 mg tablet Take 1 tablet by mouth every 8 hours as needed for pain. Take with food. 30 tablet 09/21/2022 Active Comment on above: Take 1 tablet [address] [facility] every 8 hours as needed for pain. Take with food. ketorolac tromethamine 10 mg oral tablet (2 sources) Nonsteroidal Anti-inflammatory Drug, Cyclooxygenase Inhibitor Start: 06-14-2023 take 10 mg by mouth three times daily Ketorolac Active 10 MG PO THREE TIMES A DAY 15 June 14, 2023 12:00am Start: 03-09-2021 End: 02-01-2023 take 10 mg by mouth every eight hours Ketorolac Discontinued 10 MG PO Q8H 9 3 March 08, 2021 11:00pm February 01, 2023 1:25pm ondansetron 4 mg disintegrating oral tablet (19 sources) Serotonin-3 Receptor Antagonist Start: 04-11-2024 take 1 tablet by mouth every six hours as needed for nausea ondansetron orally disintegrating (ZOFRAN ODT) 4 mg disintegrating tablet Indications: Bronchitis Take 1 tablet by mouth every 6 hours as needed for nausea/vomiting. 20 tablet 04/11/2024 Active Start: 03-09-2021 End: 02-01-2023 take 4 mg by mouth every eight hours as needed Ondansetron Discontinued 4 MG PO EVERY 8 HOURS NEEDED March 08, 2021 11:00pm February 01, 2023 1:25pm Start: 04-26-2020 End: 02-01-2023 take 8 mg by mouth every eight hours as needed Ondansetron Discontinued 8 MG PO EVERY 8 HOURS NEEDED April 26, 2020 12:00am February 01, 2023 1:25pm polyethylene glycol 3350 323166 mg / potassium chloride 2970 mg / sodium bicarbonate 6740 mg / sodium chloride 5860 mg / sodium sulfate 05020 mg powder for oral solution (2 sources) Osmotic Laxative Start: 07-19-2024 End: 07-19-2024 peg 3350-Electrolytes (GOLYTELY) 236-22.74-6.74 -5.86 gram suspension Take 4,000 mL by mouth one time only for 1 dose. As directed 1 Each 07/19/2024 07/19/2024 Active Start: 06-08-2024 End: 06-08-2024 peg 3350-Electrolytes (GOLYT AIDAN) 236-22.74-6.74 -5.86 gram suspension Take 4,000 mL by mouth one time only for 1 dose. Refer to printed prep instructions from your provider. 4000 mL 06/08/2024 06/08/2024 Active potassium chloride 10 meq extended release oral capsule (1 source) Start: 02-01-2023 take 20 mEq by mouth once daily Potassium Chloride Active 20 MEQ PO DAILY 10 January 31, 2023 11:00pm predniSONE 10 mg oral tablet (10 sources) Start: 04-11-2024 End: 04-23-2024 predniSONE (DELTASONE) 10 mg tablet Indications: Bronchitis Take 4 tabs daily x 3 days, then 3 tabs x 3 days, 2 tabs x 3 days, then 1 tab x3 days with food. 30 tablet 04/11/2024 04/23/2024 Active Start: 04-08-2024 End: 04-13-2024 take 2 tablets by mouth once daily predniSONE (DELTASONE) 20 mg tablet Take 2 tablets by mouth once daily for 5 days. 10 tablet 04/08/2024 04/13/2024 Active Start: 08-11-2023 End: 08-16-2023 take 1 tablet by mouth once daily at mealtime predniSONE (DELTASONE) 20 mg tablet Indications: Acute otitis media, right , Bronchitis Take 1 tablet by mouth once daily for 5 days. Take daily with food. 5 tablet 0 08/11/2023 08/16/2023 Active Start: 05-25-2023 End: 05-30-2023 take 1 tablet by mouth once daily at mealtime predniSONE (DELTASONE) 20 mg tablet Indications: Right wrist pain , Lumbar pain Take 1 tablet by mouth once daily for 5 days. Take daily with food. 5 tablet 05/25/2023 05/30/2023 Start: 11-11-2020 End: 02-01-2023 take 50 mg by mouth once daily Prednisone Discontinued 50 MG PO DAILY November 10, 2020 11:00pm February 01, 2023 1:25pm Comment on above: Take 1 tablet by nasra th once daily for 5 days. Take daily with food. pregabalin 25 mg oral capsule (2 sources) Start: 12-07-19 End: 03-06-20 take 1 capsule by mouth twice daily pregabalin (LYRICA) 25 mg capsule Indications: Migraine without aura and with status migrainosus, not intractable Take 1 capsule by mouth two times a day for 90 days. 60 capsule 2 12/06/2024 03/06/2025 Active sulfamethoxazole 800 mg / trimethoprim 160 mg oral tablet (6 sources) Dihydrofolate Reductase Inhibitor Antibacterial, Sulfonamide Antimicrobial Start: 06-14-19 take 1 tablet by mouth twice daily Sulfamethoxazole-T rimethoprim (Bactrim Ds) 800-160 mg tablet Active 1 TABLET PO TWICE A DAY June 14, 2023 12:00am Start: 04-22-2022 End: 05-02-2022 take 1 tablet by mouth twice daily sulfamethoxazole-trimethoprim (BACTRIM D S) 800-160 mg per tablet Indications: Right non-suppurative otitis media Take 1 tablet by mouth twice daily for 10 days. 20 tablet 0 04/22/2022 05/02/2022 Active Start: 10-04-2020 End: 02-01-2023 take 1 tablet by mouth every twelve hours Sulfamethoxazole-Trimethoprim (Bactrim D s) 800-160 mg tablet Discontinued 1 TABLET PO Q12H October 03, 2020 11:00pm February 01, 2023 1:25pm Start: 04-26-2020 End: 02-01-2023 take 1 tablet by mouth twice daily Sulfamethoxazole-Trimethoprim Discontinu ed 1 TABLET PO TWICE A DAY April 26, 2020 12:00am February 01, 2023 1:25pm Start: 06-14-2015 End: 06-15-2015 take 1 tablet by mouth twice daily Sulfamethoxazole-Trimethoprim Discontinu ed TABLET PO TWICE A DAY June 14, 2015 12:00am June 15, 2015 5:03pm Start: 02-24-2014 End: 04-22-2014 take 1 tablet by mouth twice daily Sulfamethoxazole-Trimethoprim Discontinu ed 1 TABLET PO TWICE A DAY February 23, 2014 11:00pm April 22, 2014 10:34am Comment on above: Take 1 tablet by nasra th twice daily for 10 days. SUMAtriptan 100 mg oral tablet (20 sources) Serotonin-1b and Serotonin-1d Receptor Agonist Start: End: take 1 tablet by mouth every two hours as needed for headache SUMAtriptan (IMITREX) 50 mg tablet Take 1 tablet by mouth as needed for migraine headache (see administration instructions). at onset of headache. May repeat after 2 hours. 10 tablet 2 08/16/2024 12/06/2024 Discontinued Start: 03-31-2024 End: 03-06-2025 SUMAtriptan (IMITREX) 100 mg tablet Indications: Migraine without aura and with status migrainosus, not intractable , Migraine with aura, not intractable, without status migrainosus Take 1 tablet by mouth as needed for migraine headache (see administration instructions). 9 tablet 2 12/06/2024 03/06/2025 Active Start: 07-07-2023 End: 03-31-2024 SUMAtriptan (IMITREX) 100 mg tablet Indications: Migraine with aura, not intractable, without status migrainosus Take 1 tablet (100 mg) by mouth as needed for migraine headache (see administration instructions) (Okay to repeat 2nd dose in 2-3 hours if migraine is still present). 12 tablet 2 02/28/2024 03/31/2024 Discontinued Start: 02-19-2022 End: 07-03-2023 SUMAtriptan (IMITREX) 100 mg tablet Indications: Migraine with aura, not intractable, without status migrainosus Take 1 tablet by mouth as needed for migraine headache (see administration instructions) (Okay to repeat 2nd dose in 2-3 hours if migraine is still present). 12 tablet 2 02/19/2022 04/08/2022 Discontinued Start: 04-26-2020 End: 02-19-2022 SUMAtriptan (IMITREX) 100 mg tablet Indications: Migraine with aura, not intractable, without status migrainosus Take 1 tablet by mouth as needed. 9 tablet 2 07/15/2021 09/01/2021 Discontinued Comment on above: Take 1 tablet by nasra th as needed. Take 1 tablet by nasra th as needed for migraine headache (see administration instructions) (Okay to repeat 2nd dose in 2-3 hours if migraine is still present). Take 1 tablet (100 m g) by mouth as needed for migraine headache (see administration instructions) (Okay to repeat 2nd dose in 2-3 hours if migraine is still present). tamsulosin hydrochloride 0.4 mg oral capsule (1 source) alpha-Adrenergic Christinao Start: 024 take 1 capsule by mouth at bedtime Tamsulosin (Flomax) 0.4 mg capsule Active 0.4 MG PO AT BEDTIME June 14, 2023 12:00am triamcinolone acetonide 1 mg/ml topical cream (20 sources) Corticosteroid Start: triamcinolone acetonide (KENALOG) 0.1 % cream Indications: Neurodermatitis Apply 1 application to affected area two times a day. Do not use for more than two weeks at a time. 80 g 09/26/2024 Active Start: 07-24-2021 End: 01-24-2024 triamcinolone acetonide (BRAD ALOG) 0.1 % cream Indications: Neurodermatitis Apply 1 application to affected area twice daily. 60 g 1 07/24/2021 01/24/2024 Discontinued Comment on above: Apply 1 application to affected area twice daily. ubrogepant 100 mg oral tablet (2 sources) Start: End: take 1 tablet by mouth once daily ubrogepant (UBRELVY) 100 mg tablet Indications: Migraine without aura and with status migrainosus, not intractable Take 1 tablet by mouth as directed. Take 1 tablet PO as needed for acute treatment of migraine. May repeat second dose after 2 hours if incomplete response. Do not exceed 200 mg daily 10 tablet 5 12/06/2024 01/05/2025 Active Completed/Discontinued Medications Medication Drug Class(es) Dates Sig (Normalized) Sig (Original) acetaminophen 325 mg / butalbital 50 mg / caffeine 40 mg oral tablet (9 sources) Barbiturate, Central Nervous System Stimulant, Methylxanthine Start: 02-19-2022 End: 04-11-2022 acetaminophen 325 mg-caffeine 40 mg-butalbital 50 mg (FIORICET) per tablet Indications: Migraine with aura, not intractable, without status migrainosus Take 1 tablet by mouth every 4 hours as needed for up to 30 days. Use sparingly, not in same 6h as baclofen 20 tablet 2 03/12/2022 04/11/2022 Comment on above: Take 1 tablet by nasra th every 4 hours as needed. Take 1 tablet by nasra th every 4 hours as needed for up to 30 days. Use sparingly, not in same 6h as baclofen Acetaminophen / Caffeine (20 sources) Central Nervous System Stimulant, Methylxanthine End: 02-19-2022 ACETAMINOPHEN/CAFF EINE (EXCEDRIN ASPIRIN FREE ORAL) Take by mouth. 02/19/2022 Discontinued End: 02-19-2022 ACETAMINOPHEN/CAFFEINE (EXCE DRIN ASPIRIN FREE ORAL) Take by mouth. 0 02/19/2022 Discontinued ACETAMINOPHEN/CA FFEINE (EXCEDRIN ASPIRIN FREE ORAL) Take by mouth. 0 Active Comment on above: Take by mouth. acetaminophen 325 mg / oxyCODONE hydrochloride 5 mg oral tablet (3 sources) Opioid Agonist Start: 04-26-2020 End: 04-29-2020 take 1 tablet by mouth every six hours as needed Oxycodone-Acetaminoph en Discontinued 1 - 2 TABLET PO EVERY 6 HOURS NEEDED 04 11April 26, 2020 April 29, 2020 12:02am Start: 07-02-2015 End: 07-04-2015 take 1 tablet by mouth every six hours as needed Oxycodone-Acetaminophen Discontinued 1 - 2 TABLET PO EVERY 6 HOURS NEEDED July 02, 2015 12:00am July 04, 2015 11:27am Start: 01-05-2014 End: 04-22-2014 take 1 tablet by mouth every four hours as needed Oxycodone-Acetaminophen Discontinued 1 - 2 TABLET PO EVERY 4 HOURS NEEDED January 04, 2014 11:00pm April 22, 2014 10:34am albuterol 0.833 mg/ml / ipratropium bromide 0.167 mg/ml inhalation solution (3 sources) Anticholinergic, beta2-Adrenergic Agonist Start: 04-08-2024 End: 04-08-2024 ipratropium-albuterol 3 mL nebulizer solution (DUONEB) Start: 04-08-2024 End: 04-08-2024 take 1 dose by inhalation once 3 mL, INHALATION, ONCE, 1 dose, On 04/08/24 at 0900, PROTECT FROM LIGHT. The unit-dose vial should remain stored in the protective foil pouch until time of use. cephalexin 500 mg oral capsule (2 sources) Cephalosporin Antibacterial Start: 10-30-2013 End: 04-22-2014 take 500 mg by mouth every six hours Cephalexin Discontinued 500 MG PO EVERY 6 HOURS February 23, 2014 11:00pm April 22, 2014 10:33am collagenase 0.25 unt/mg topical ointment (1 source) Collagen-specific Enzyme Start: 06-15-2015 End: 07-04-2015 Collagenase Clostridium Histo. (Santyl) 1 APPLIC Tube Discontinued 1 APPLIC TOPICAL DAILY 2 June 15, 2015 12:00am July 04, 2015 11:22am 1.5 ml fremanezumab-vfr m 150 mg/ml prefilled syringe (8 sources) Start: 08-16-2024 End: 12-06-2024 inject 1.5 mL by subcutaneous injection every month fremanezumab-vfrm 225 mg/1.5 mL subcutaneous syringe (AJOVY) Indications: Migraine without aura and with status migrainosus, not intractable Inject 1.5 mL subcutaneously once every month. Do not shake. 1.5 mL 5 08/16/2024 12/06/2024 Discontinued lamoTRIgine 100 mg oral tablet (20 sources) Mood Stabilizer, Anti-epileptic Agent Start: 10-27-2021 End: 10-13-2023 take 1 tablet by mouth once daily lamoTRIgine (LAMICTAL) 100 mg tablet Indications: Schizoaffective disorder, bipolar type (HCC) Take 1 tablet by mouth once daily. 90 tablet 1 02/19/2022 10/13/2023 Discontinued Start: 10-27-2021 End: 02-19-2022 take 3 tablets by mouth once daily lamoTRIgine (LAMICTAL) 25 mg tablet Indications: Bipolar 1 disorder (HCC) , PTSD (post-traumatic stress disorder) , Schizoaffective disorder, bipolar type (HCC) Take 3 tablets by mouth once daily. Pt taking 75 mg for 2 weeks then will go up to 100mg 42 tablet 0 01/01/2022 02/19/2022 Discontinued (Duplicate Entry) Start: 09-08-2021 End: 02-19-2022 take 1 tablet by mouth once daily, then take 3 tablets by mouth once daily, then take 4 tablets by mouth once daily lamoTRIgine (LAMICTAL) 25 mg tablet Indications: Bipolar 1 disorder (HCC) , PTSD (post-traumatic stress disorder) , Schizoaffective disorder, bipolar type (HCC) Take 1 tablet by mouth once daily for 14 days. 3 tabs daily x 1 week, then 4 tabs daily 49 tablet 0 09/08/2021 02/19/2022 Discontinued (Duplicate Entry) Start: 09-08-2021 End: 10-27-2021 lamoTRIgine (LAMICTAL) 25 mg tablet Indications: Bipolar 1 disorder (HCC) , PTSD (post-traumatic stress disorder) , Schizoaffective disorder, bipolar type (HCC) By mouth 25mg daily x Week 1 and 2, 50mg daily week 3 and 4 105 tablet 0 09/08/2021 10/27/2021 Discontinued Comment on above: Take 1 tablet by nasra th once daily for 14 days. 3 tabs daily x 1 week, then 4 tabs daily By mouth 25mg daily x Week 1 and 2, 50mg daily week 3 and 4 Take 1 tablet by nasra th once daily. After titration from 75 mg a day Take 3 tablets by mo [facility] once daily. Pt taking 75 mg for 2 weeks then will go up to 100mg Take 1 tablet by nasra th once daily. methylPREDNISolone (1 source) Corticosteroid Start: 2021 End: 2021 methylPREDNISolone (MEDROL, FELIPE,) 4 mg Dose-Pack Indications: DDD (degenerative disc disease), cervical Follow dosing instructions, take with food. 1 Package 07/24/2021 07/30/2021 naproxen 500 mg oral tablet (1 source) Nonsteroidal Anti-inflammatory Drug Start: 2013 End: 2013 take 500 mg by mouth twice daily Naproxen Discontinued 500 MG PO TWICE A DAY October 29, 2013 11:00pm April 22, 2014 10:34am ofloxacin 3 mg/ml otic solution (20 sources) Quinolone Antimicrobial Start: 2023 End: 2023 ofloxacin (FLOXIN) 0.3 % otic solution Indications: Acute otitis media, right Use 10 Drops in the right ear once daily. 5 mL 01/24/2024 03/31/2024 Discontinued Start: 04-26-2023 End: 05-03-2023 ofloxacin (FLOXIN) 0.3 % lazarus c solution Use 10 Drops in the right ear once daily for 7 days. 4 mL 0 04/26/2023 05/03/2023 Active Comment on above: Use 10 Drops in the right ear once daily for 7 days. Use 10 Drops in the right ear once daily. QUEtiapine 50 mg oral tablet (6 sources) Atypical Antipsychotic Start: End: take 1 tablet by mouth once daily at bedtime QUEtiapine (SEROQUEL) 50 mg tablet Take 1 tablet by mouth daily at bedtime. 30 tablet 11/15/2023 01/24/2024 Discontinued rimegepant 75 mg disintegrating oral tablet (8 sources) Start: End: take 1 tablet by mouth once daily as needed rimegepant (NURTEC ODT) 75 mg disintegrating tablet Indications: Migraine without aura and with status migrainosus, not intractable Take 1 tablet by mouth once daily as needed. 8 tablet 2 08/16/2024 12/06/2024 Discontinued topiramate 50 mg oral tablet (18 sources) Start: End: take 1 tablet by mouth once daily at bedtime topiramate (TOPAMAX) 50 mg tablet Indications: Migraine without aura and with status migrainosus, not intractable Take 1 tablet by mouth daily at bedtime. 30 tablet 2 05/24/2024 12/06/2024 Discontinued Start: 03-31-2024 End: 06-29-2024 take 1 tablet by mouth once daily at bedtime topiramate (TOPAMAX) 25 mg tablet Indications: Migraine without aura and with status migrainosus, not intractable Take 1 tablet by mouth daily at bedtime. 30 tablet 2 03/31/2024 05/24/2024 Discontinued zolpidem tartrate 10 mg oral tablet (2 sources) gamma-Aminobutyric Acid-ergic Agonist Start: 08-10-2014 End: 10-06-2015 take 1 tablet by mouth at bedtime Zolpidem (Ambien) 10 MG tablet Discontinued 10 MG PO AT BEDTIME August 09, 2014 11:00pm October 06, 2015 10:14pm Start: 03-20-2013 End: 04-22-2014 take 1 tablet by mouth at bedtime as needed Zolpidem (Ambien) 10 MG tablet Discontinued 10 MG PO AT BEDTIME NEEDED March 20, 2013 12:00am April 22, 2014 10:34am Problems Active Problems Problem Classification Problem Date Documented Da te Episodic/Chronic Abdominal pain (2 sources) Upper abdominal pain, unspecified; Translations: [Flank pain] Onset: 8 04-27-2020 Episodic Adjustment disorders (2 sources) Grief finding; Translations: [Adjustment disorder with depressed mood] 10-13-2023 Chronic Anxiety disorders (20 sources) Posttraumatic stress disorder; Translations: [Post-traumatic stress disorder, unspecified] Onset: 1 05-05-2021 Chronic Bacterial infection; unspecified site (1 source) History of methicillin resistant Staphylococcus aureus infection; Translations: [Personal history of Methicillin resistant Staphylococcus aureus infection] 10-14-2018 Episodic Cancer of uterus (1 source) Malignant neoplasm of endometrium of corpus uteri ; Translations: [Malignant neoplasm of endometrium] 10-14-2018 Chronic Cancer; other and unspecified primary (1 source) Malignant tumor of pelvis; Translations: [Malignant neoplasm of pelvis] 10-14-2018 Chronic Cardiac dysrhythmias (1 source) Sinus tachycardia; Translations: [Tachycardia, unspecified] 10-14-2018 Episodic Chronic ulcer of skin (1 source) Ulcer of thigh; Translations: [Non-pressure chronic ulcer of left thigh with unspecified severity] 10-14-2018 Chronic Diabetes mellitus without complication (1 source) Increased glucose level; Translations: [Other abnormal glucose] Episodic E Codes: Fall (1 source) Fall on same level from slipping, tripping and stumbling without subsequent striking against object, initial encounter; Translations: [Fall due to wet surface] 06-12-2023 Episodic Esophageal disorders (2 sources) Gastroesophageal reflux disease without esophagitis; Translations: [Gastro-esophageal reflux disease without esophagitis] 10-22-2023 Chronic Fluid and electrolyte disorders (4 sources) Hypokalemia; Translations: [Dehydration] 01-26-2022 Episodic Gastritis and duodenitis (1 source) Gastritis; Translations: [Gastritis, unspecified, without bleeding] 10-04-2020 Episodic Headache, including migraine (2 sources) Headache; Translations: [Headache] Onset: 8 04-27-2019 Episodic Headache; including migraine (20 sources) Migraine without aura; Translations: [Migraine without aura, not intractable, without status migrainosus] Onset: 7 Resolved: 4 09-16-2016 Chronic Immunizations and screening for infectious disease (4 sources) Suspected disease caused by 2019-nCoV; Translations: [Suspected COVID-19 virus infection] Onset: 5 Episodic Inflammation; infection of eye (except that caused by tuberculosis or sexually transmitteddisease) (1 source) Conjunctivitis; Translations: [Unspecified conjunctivitis] 09-29-2015 Episodic Influenza (1 source) Influenza-like illness; Translations: [Influenza due to unidentified influenza virus with other respiratory manifestations] 01-06-2023 Episodic Intracranial injury (1 source) Concussion with no loss of consciousness; Translations: [Concussion without loss of consciousness, initial encounter] Episodic Miscellaneous mental health disorders (1 source) Primary insomnia; Translations: [Primary insomnia] 10-13-2023 Chronic Mood disorders (20 sources) Bipolar I disorder; Translations: [Bipolar disorder, unspecified] Onset: 8 12-22-2017 Chronic Nausea and vomiting (2 sources) Nausea and vomiting; Translations: [Nausea with vomiting, unspecified] 02-12-2023 Episodic Nonspecific chest pain (4 sources) Other chest pain; Translations: [Atypical chest pain] Onset: 3 Episodic Other connective tissue disease (1 source) Radial styloid tenosynovitis; Translations: [Radial styloid tenosynovitis [de Quervain]] Episodic Other connective tissue disease (1 source) Muscle spasm of cervical muscle of neck; Translations: [Other muscle spasm] 10-15-2018 Episodic Other connective tissue disease (1 source) Tenosynovitis of right radial styloid; Translations: [Radial styloid tenosynovitis [de Quervain]] 06-22-2023 Episodic Other connective tissue disease (1 source) Trigger thumb of right hand; Translations: [Trigger thumb, right thumb] 06-22-2023 Episodic Other connective tissue disease (1 source) Cramp in lower limb; Translations: [Cramp and spasm] 08-11-2023 Episodic Other connective tissue disease (1 source) Pain in right foot; Translations: [Pain in right foot] 09-21-2022 Episodic Other ear and sense organ disorders (1 source) Otalgia, right ear; Translations: [Otalgia, unspecified] Episodic Other ear and sense organ disorders (1 source) Acute otitis externa of right ear; Translations: [Unspecified acute noninfective otitis externa, right ear] 04-26-2023 Episodic Other gastrointestinal disorders (2 sources) Stool DNA-based colorectal cancer screening positive; Translations: [Other fecal abnormalities] 06-02-2024 Episodic Other inflammatory condition of skin (1 source) Psoriasis; Translations: [Psoriasis, unspecified] 03-09-2021 Chronic Other injuries and conditions due to external causes (1 source) Closed injury of head; Translations: [Unspecified injury of head, initial encounter] Episodic Other injuries and conditions due to external causes (1 source) Injury of right foot; Translations: [Unspecified injury of right foot, initial encounter] 09-21-2022 Episodic Other lower respiratory disease (2 sources) Cough; Translations: [Acute cough] 01-06-2023 Episodic Other lower respiratory disease (1 source) Dyspnea; Translations: [Shortness of breath] 02-09-2023 Episodic Other lower respiratory disease (1 source) Wheezing; Translations: [Wheezing] 04-08-2024 Episodic Other nervous system disorders (1 source) Other chronic pain; Translations: [Chronic neck pain] Onset: Chronic Other nervous system disorders (1 source) H/O: migraine; Translations: [Personal history of other diseases of the nervous system and sense organs] 10-14-2018 Episodic Other non-traumatic joint disorders (2 sources) Pain of right wrist; Translations: [Pain in right wrist] 06-22-2023 Episodic Other nutritional; endocrine; and metabolic disorders (1 source) Obese class I; Translations: [Obesity, unspecified] 10-14-2018 Chronic Other upper respiratory infections (2 sources) Acute upper respiratory infection; Translations: [Acute upper respiratory infection, unspecified] 08-11-2023 Episodic Otitis media and related conditions (5 sources) Acute right otitis media; Translations: [Otitis media, unspecified, right ear] Episodic Phlebitis; thrombophlebitis and thromboembolism (1 source) History of thromboembolism of vein; Translations: [Personal history of other venous thrombosis and embolism] 03-09-2021 Episodic Pneumonia (except that caused by tuberculosis or sexually transmitted disease) (4 sources) Pneumonia, unspecified organism; Translations: [Community acquired pneumonia] Onset: 3 Episodic Residual codes; unclassified (2 sources) Obstructive sleep apnea syndrome; Translations: [Obstructive sleep apnea (adult) (pediatric)] 08-16-2024 Chronic Residual codes; unclassified (1 source) Obstructive sleep apnea (adult) (pediatric); Translations: [ANNALISA (obstructive sleep apnea)] Onset: 5 Chronic Residual codes; unclassified (1 source) Tobacco user; Translations: [Tobacco use] 02-09-2023 Episodic Respiratory failure; insufficiency; arrest (adult) (1 source) Acute hypoxemic respiratory failure; Translations: [Acute respiratory failure with hypoxia] 04-27-2019 Episodic Schizophrenia and other psychotic disorders (20 sources) Schizoaffective disorder; Translations: [Schizoaffective disorder, unspecified] Onset: 1 05-05-2021 Chronic Skin and subcutaneous tissue infections (2 sources) Cellulitis of left thigh; Translations: [Cellulitis of left lower limb] 10-14-2018 Episodic Spondylosis; intervertebral disc disorders; other back problems (20 sources) Lumbar spondylosis; Translations: [Spondylosis without myelopathy or radiculopathy, lumbar region] Onset: 4 12-01-2013 Chronic Spondylosis; intervertebral disc disorders; other back problems (20 sources) Low back pain; Translations: [Lumbago] Onset: 4 Resolved: 4 07-17-2013 Episodic Sprains and strains (20 sources) Low back strain; Translations: [Strain of muscle, fascia and tendon of lower back, initial encounter] Onset: 4 Resolved: 4 09-22-2018 Episodic Substance-related disorders (2 sources) Smoker; Translations: [Nicotine dependence, unspecified, uncomplicated] Chronic Superficial injury; contusion (4 sources) Hematoma of occipital scalp; Translations: [Contusion of scalp, initial encounter] Episodic Unclassified (1 source) Lumbar pain; Translations: [Lumbar pain] Onset: 5 Unclassified (1 source) Acute midline low back pain without sciatica; Translations: [Acute midline low back pain without sciatica] Onset: 5 Unclassified (1 source) Cough, unspecified type; Translations: [Cough, unspecified type] Onset: 4 Urinary tract infections (3 sources) Urinary tract infectious disease; Translations: [Urinary tract infection, site not specified] 10-04-2020 Episodic Past or Other Problems Problem Classification Problem Date Documented Da te Episodic/Chronic Calculus of urinary tract (13 sources) Ureteric stone; Translations: [Calculus of ureter] Onset: 08-16-2024 03-09-2021 Episodic Chronic obstructive pulmonary disease and bronchiectasis (5 sources) Bronchitis; Translations: [Bronchitis, not specified as acute or chronic] Onset: 04-11-2024 08-11-2023 Episodic Other bone disease and musculoskeletal deformities (20 sources) Cervical somatic dysfunction; Translations: [Segmental and somatic dysfunction of cervical region] Onset: 06-03-2017 Resolved: 03-31-2024 06-03-2017 Episodic Other bone disease and musculoskeletal deformities (20 sources) Somatic dysfunction of thoracic region; Translations: [Segmental and somatic dysfunction of thoracic region] Onset: 06-03-2017 Resolved: 03-31-2024 06-03-2017 Episodic Other bone disease and musculoskeletal deformities (20 sources) Somatic dysfunction of lumbar region; Translations: [Segmental and somatic dysfunction of lumbar region] Onset: 06-03-2017 Resolved: 03-31-2024 06-03-2017 Episodic Other gastrointestinal disorders (1 source) Other fecal abnormalities; Translations: [Positive colorectal cancer screening using Cologuard test] Onset: 06-08-2024 Episodic Other lower respiratory disease (20 sources) Multiple nodules of lung; Translations: [Other nonspecific abnormal finding of lung field] Onset: 05-04-2019 08-07-2021 Episodic Other lower respiratory disease (1 source) Wheezing; Translations: [Wheezing] Onset: 04-08-2024 Episodic Other lower respiratory disease (1 source) Other nonspecific abnormal finding of lung field; Translations: [Lung nodules] Onset: 03-31-2024 Episodic Other non-traumatic joint disorders (20 sources) Pain in unspecified knee; Translations: [Pain in joint, lower leg] Onset: 12-01-2013 Resolved: 09-22-2018 09-22-2018 Episodic Other screening for suspected conditions (not mental disorders or infectious disease) (6 sources) Patient encounter status; Translations: [Encounter for screening mammogram for malignant neoplasm of breast] Onset: 03-31-2024 Episodic Pulmonary heart disease (10 sources) Pulmonary embolism; Translations: [Other pulmonary embolism without acute cor pulmonale] Onset: 08-16-2024 10-14-2018 Episodic Residual codes; unclassified (20 sources) Other general symptoms and signs; Translations: [Other nonspecific abnormal findings] Onset: 11-16-2006 Resolved: 11-16-2006 11-16-2006 Episodic Screening and history of mental health and substance abuse codes (1 source) Encounter for screening for depression; Translations: [Screening for depression] Onset: 03-31-2024 Episodic Unclassified (1 source) Patient encounter status 07-26-2024 Results Test Name Value Interpretation Reference Range Facility [facility] 03-19-2025 [facility] Office Visit ([facility] NABOR HERRERA ([id number]) 1975 F Date Time Provider Department 03/19/25 1:00 PM DIONICIO BROWER [facility] During your visit today, we recorded the following information about you: Pulse Blood pressure 88/minute 122/82 Dionicio Brower MD 03/19/2025 1:31 PM Signed The patient is a 49-year-old female with chronic low back pain and mild lumbar degenerative changes, presenting for ER follow-up of persistent low back pain radiating into the left lower extremity. HPI Beverly Herrera is a 49-year-old female presenting for follow-up after an ER visit for severe left gluteal pain. Left Gluteal Pain: - Severe pain described as a Jeet horse in the left gluteal region. - Pain radiates to the knee and ankle, causing difficulty standing. - Recent ER visit at [facility] on 03/17; diagnosed with a myofascial sprain and prescribed hydrocodone. - Lumbar spine X-rays were negative. - Pain initially improved but returned with increased severity. - Has been alternating between ice and heat for pain management. - Using hydrocodone primarily at night to aid sleep; reports inadequate relief. - Previously prescribed steroids (three rounds) with no significant improvement. - Taking Lyrica 25 mg and baclofen; reports minimal relief. - Denies effectiveness of Robaxin. - Engages in home stretches as recommended by ER physician. - Financial constraints limit ability to afford physical therapy. - Resumed THC use for pain management after previous cessation. MEDICATIONS: Current Outpatient Medications Medication Sig albuterol (PROVENTIL) 2.5 mg /3 mL (0.083 %) nebulizer solution Use 3 mL via nebulizer every 6 hours as needed for wheezing/shortness of breath. Use over 5-15minutes. SUMAtriptan (IMITREX) 100 mg tablet Take 1 tablet by mouth as needed for migraine headache (see administration instructions). baclofen 10 mg tablet Take 1 tablet by mouth three times a day. meloxicam (MOBIC) 15 mg tablet Take 1 tablet by mouth once daily. pregabalin (LYRICA) 50 mg capsule Take 1 capsule by mouth two times a day for 90 days. iv contrast (will be provided with radiology test) MRI LSP Inject, intravenously, once for 1 dose. No IV access, insert saline lock prior to the beginning of sedation, infusion, injection of imaging exam. Discontinue saline lock post exam. If Pt. has a central line or IVAD, may access for administration according to line specific nursing protocol. Once exam is complete flush line and de-access according to line specific nursing protocol in the MR contrast administration guidelines link. triamcinolone acetonide (KENALOG) 0.1 % cream Apply 1 application to affected area two times a day. Do not use for more than two weeks at a time. albuterol HFA (PROVENTIL HFA, VENTOLIN HFA) 90 mcg/actuation inhaler Inhale 2 Puffs as instructed every 6 hours as needed for Wheezing/Shortness of Breath. No current facility-administered medications for this visit. ALLERGIES: ALLERGIES Allergen Reactions Penicillins Unknown Vicodin [Hydrocodon* GI Upset States that was a reaction with compazine not an allergy. PAST MEDICAL HISTORY Diagnosis Date Bipolar 1 disorder ([facility]) [facility] DVT (deep venous thrombosis) ([facility]) 2006 Marijuana use Migraine with aura PE (pulmonary embolism) 2006 PTSD (post-traumatic stress disorder) [facility] psych [facility] Schizoaffective disorder ([facility]) sees psych at [facility] Urinary tract infection, site not specified 2003 [...] lung Thyroid Sister Psychiatry Sister 2 sisters SOCIAL HISTORY[1] Reviewed current medications, allergies, past medical history, surgical history, family history and social history today. REVIEW OF SYSTEMS Constitutional: (+) insomnia Musculoskeletal: (+) left low back pain, (+) left gluteal pain, (+) radiating pain to left knee and ankle HEALTH MAINTENANCE: Reviewed health maintenance issues today and recommended the following in detail. Cervical Cancer Screening Never done Mammogram Screening due on 08/07/2022 Covid-19 Vaccine(2024- season) due on 01/08/2025 Depression Screening due on 03/31/2025 LAB REVIEWED: - (03/17/2025) - Lumbar spine radiographs: Negative. - ED assessment: Myofascial strain. - (02/13/2025) Lumbar spine ra (more content not included)... Normal [facility] Emergency Department Summary on 03-17-2025 Emergency Department Summary [facility] Medical Records Department [address] [place] [address] Emergency Department Summary 03/17/25 MR#: [id number] Acct: [id number] Name: NABOR HERRERA Rep #: [id number] : 1975 49 From: Kun Newby MD PCP: Dr. Dionicio Brower MD Status:REG ER Location: ED HPI History of Present Illness Chief Complaint: Back Informant: patient Narrative Narrative: Patient is a 49-year-old female with a history of degenerative disc disease, bulging disc, and fibromyalgia, presenting with severe left-sided gluteal pain occasionally radiating to the ankle. - Pain began yesterday morning, initially described as a charley horse in the left gluteal region. - Onset was sudden, with a sensation of popping. Occured while doing a lot of lifting and carrying boxes. - Pain has progressively worsened, now radiating to the knee and ankle, described as fire going through my leg when standing. - Pain is constant and severe, unaffected by position (standing, sitting, or lying down). - Associated with shaking due to pain. - Denies abdominal pain. - Reports constipation, attributing it to pain during defecation. - Denies urinary incontinence or retention. - Recent history of pneumonia, completed a course of steroids. - Taking baclofen and Lyrica daily for fibromyalgia; took baclofen and Tylenol today. - Allergic to penicillin. [facility] Medical History Psoriasis Psoriasis Fibromyalgia Migraines Kidney stones Hypokalemia Bipolar 1 disorder History of venous thromboembolism Home Medications ???Medication ???Instructions ???Recorded ???Last Taken ???Type baclofen 10 mg tablet 10 mg PO TID BACK PAIN 04/27/19 History sumatriptan succinate 100 mg tablet 100 mg PO .X1 PRN 04/26/2001/09 History acetaminophen 325 mg tablet (Aphen) 650 mg PO Q4H PRN pain 02/01/23 02/01/23 History fremanezumab-vfrm 225 mg/1.5 mL mg subcut 09/11/24 Unknown History subcutaneous syringe (Ajovy Syringe) ondansetron 4 mg disintegrating 4 mg PO Q8H PRN PRN Nausea #10 tab s 09/11/24 Unknown Rx tablet rimegepant 75 mg disintegrating PO 09/11/24 Unknown History tablet (Nurtec ODT) hydrocodone-acetaminophen 5-325mg 1 tab PO Q6H PRN PRN Pain 3 days 03/17/25 Unknown Rx 5mg-325mg #10 TABLETS Allergy/AdvReac Type Severity Reaction Status Date / Time Cephalosporins Allergy Severe Anaphylaxis Verified 03/17/25 08:11 adhesive tape Allergy Swelling Verified 03/17/25 08:11 Penicillins Allergy Anaphylaxis Verified 03/17/25 08:11 bupropion (From Wellbutrin) AdvReac Other Verified 03/17/25 08:11 diphenhydramine HCl (From AdvReac IV route Verified 03/17/25 08:11 Benadryl) causes panic attack. can take po Surgical History H/O: hysterectomy Social History Smoking Status: Current every day smoker tobacco type: cigarettes substance use type: does not use ROS ROS ED Constitutional Constitutional ED: Denies chills or fever(s) Gastrointestinal Gastrointestinal: Denies abdominal pain, constipation, fecal incontinence, nausea or vomiting Genitourinary Genitourinary ED: Reports other Details: no urinary retention ; Denies abdominal discomfort or urinary incontinence Musculoskeletal Musculoskeletal: Reports as per HPI and back pain; Denies neck pain Integumentary Denies rash or wounds Neurologic Neurologic: Denies headache(s), paresthesias or weakness EXAM Physical Exam Const Vital Signs: 03/17/25 08:11 Temperature 97.6 F L Temperature Source Oral Pulse Rate 101 H Respiratory Rate 18 Blood Pressure 143/83 H Blood Pressure Mean 103 Pulse Ox 99 Oxygen Delivery Method Room Air Positive well nourished and well developed General Appearance ED: well developed and NAD HEENT Negative for trauma or tenderness Eyes PERRL and EOMs intact bilaterally Neck full ROM and supple GI normal to inspection, nondistended, normoactive bowel sounds, soft to palpation and non-tender Back/Spine normal to inspection Back/Spine Narrative: Ipsilateral left lower extremity straight leg raise causes significant increased back pain but no reproduced radicular symptoms. Negative cross straight leg raise. Lumbar Spine / Lower Back: ROM limited, paraspinal muscle tenderness left and straight leg raise negative bilaterally; Negative for lumbar spinal tenderness Extremity normal to inspection, full ROM and no pedal edema Neuro oriented x3 and no sensory deficits noted Sensorium / Orientation: alert Motor Exam: strength 5/5 throughout and clonus absent Deep Tendon Reflexes: Rt Patellar (L4): 2+, Lt Patellar (L4): 2+, Rt Ankle (more content not included)... Normal [facility] Lumbar Spine 2 or 3 Viewson 03-17-2025 Lumbar Spine 2 or 3 Views [facility] Imaging Services [address] [place], [place] [id number] Lumbar Spine 2 or 3 Views MR#: [id number] Acct: [id number] Name: NABOR HERRERA Rep #: [id number] : 1975 F 49 From: Malik Clements MD PCP: Dr. Dionicio Brower MD Status: REG ER Study: Lumbar Spine 2 or 3 Views Date of Exam: Exam# [id number] Ordering Dr: Kun Newby MD PROCEDURE: LUMBAR SPINE 2 OR 3 VIEWS 03/17/2025 REASON FOR EXAM: PAIN/INJURY TECHNIQUE: Procedure Code: SHAQ Modality: DX Procedure: LUMBAR SPINE 2 OR 3 VIEWS COMPARISON: None. FINDINGS: Vertebrae: No acute bony abnormalities. Discs: Unremarkable. Alignment: Normal alignment. RAD/Lumbar Spine 2 or 3 Views IMPRESSION: No acute bony abnormalities. No significant disc disease on x-ray. Reading Location: [facility] CC: Dr. Kun Newby MD; Dr. Dionicio Brower MD Associate Professor Of Biblical Studies: Signed Normal [facility] CNOVon 02-13-2025 CNOV Office Visit (FAMPWS ) NABOR HERRERA ([id number]) 1975 F Date Time Provider Department 02/13/25 4:00 PM DIONICIO BROWER During your visit today, we recorded the following information about you: Pulse Blood pressure Weight 78/minute 102/62 94.3 kg Dionicio Brower MD 02/13/2025 4:21 PM Signed We discussed your low back pain: - You reported that your pain began after trying to prevent a fall and is located in your left lower back and hip. The discomfort is superficial, and you have no numbness, tingling, or burning when urinating. You also mentioned difficulty getting to the bathroom due to pain but no loss of bladder or bowel control. - A physical exam showed positive straight leg raising on the left side at 95 degrees, with intact reflexes and no neurological deficits. - You are alternating ice and heat for symptom relief, which I recommend continuing. We discussed your treatment plan: - I prescribed a prednisone taper, which is a longer and stronger steroid course than the Medrol Dosepak you previously tried. Please take this as directed. - I am switching your muscle relaxer from baclofen to Robaxin. Robaxin may cause drowsiness, so please avoid driving while taking it. Stop taking baclofen and start Robaxin as directed. - If your symptoms worsen, such as new weakness, dragging of your legs, or other concerning changes, please contact our office immediately. We discussed imaging and next steps: - I ordered an x-ray of your lumbar spine to further evaluate your back pain. Please complete this x-ray today. - If your symptoms do not improve with the prednisone taper and Robaxin, we may need to consider physical therapy as the next step. Physical therapy is often necessary to improve mobility and function and is typically required before advanced imaging like an MRI can be approved. Additional notes: - You mentioned increasing your THC intake without relief. Please continue to monitor your symptoms and let us know if there are any changes. - Staying as active as possible is important to prevent stiffness and worsening pain. Try to keep moving within your comfort level. Please follow up with me after completing the x-ray or sooner if your symptoms worsen. Dionicio Brower MD 02/15/2025 11:27 AM Addendum The patient is a 49-year-old female presenting for evaluation of acute low back pain with radicular symptoms into the left leg. Accompanied by her daughter. SUKHDEV Paul is a 49-year-old female with a history of chronic back pain, presenting for follow-up of acute low back pain radiating to the left leg. Low Back Pain: - Acute onset of low back pain radiating to the left leg, began on 01/29/2025. - Pain described as superficial and really sore. - Pain initiated while trying to prevent a fall, resulting in a jolt to the side. - Denies known trauma or injury. - Pain localized to the left lower back and hip, extending down the left leg. - Associated with chronic discoloration in the back due to heating pad use. - Denies numbness or tingling. - Reports difficulty ambulating and prolonged time to reach the bathroom due to pain. - Recent episode of sneezing while on the toilet exacerbated pain. - Alternating use of ice and heat for pain management. - Reports increased THC use without relief. - Denies dysuria or abdominal pain. - Taking Lyrica and baclofen TID for years; recently increased baclofen dosage. - Medrol Dosepak prescribed previously MEDICATIONS: Current Outpatient Medications Medication Sig predniSONE (DELTASONE) 10 mg tablet Take 4 tabs daily for 3 days, then 2 tabs daily for 3 days, then 1 tab daily for 3 days with food. methocarbamol (ROBAXIN) 500 mg tablet Take 1 tablet by mouth three times a day. Do not use while on baclofen SUMAtriptan (IMITREX) 100 mg tablet Take 1 tablet by mouth as needed for migraine headache (see administration instructions). pregabalin (LYRICA) 25 mg capsule Take 1 capsule by mouth two times a day for 90 days. baclofen 10 mg tablet Take 1 tablet by mouth three times a day. triamcinolone acetonide (KENALOG) 0.1 % cream Apply 1 application to affected area two times a day. Do not use for more than two weeks at a time. albuterol (PROVENTIL) 2.5 mg /3 mL (0.083 %) nebulizer solution Use 3 mL via nebulizer every 6 hours as needed for wheezing/shortness of breath. Use over 5-15minutes. albuterol HFA (PROVENTIL HFA, VENTOLIN HFA) 90 mcg/actuation inhaler Inhale 2 Puffs as instructed every 6 hours as needed for Wheezing/Shortness of Breath. No current facility-administered medications for this visit. ALLERGIES: ALLERGIES Allergen Reactions Penicillins Unknown Vicodin [Hydrocodon* GI Upset States that was a reaction with compazine not an allergy. PAST MEDICAL HISTORY Diagnosis Date Bipolar 1 disorder (HCC) s (more content not included)... Normal [facility] XR LUMBAR 3V AP/LAT/L5-S1on 02-13-2025 XR LUMBAR 3V AP/LAT/L5-S1 * * *Final Report* * * DATE OF EXAM: Feb 13 2025 4:46PM WOX [id number] - XR LUMBAR 3V AP/LAT/L5-S1 / PROCEDURE REASON: Lumbar pain * * * * Physician Interpretation * * * * EXAM TITLE: XR LUMBAR 3V AP/LAT/L5-S1 EXAM DATE/TIME: 02/13/2025 4:46 PM COMPARISON: None. CLINICAL INDICATION/HISTORY: Lumbar pain. TECHNIQUE: AP, lateral and cone down lateral views of the lumbar spine are presented. FINDINGS: There are five upn-lan-cchgyzt lumbar vertebrae. No fracture or subluxations are noted. Straightening of the lumbar spine curvature is noted. The disc spaces are well preserved. There is mild osteophyte formation. IMPRESSION: Lumbar spine mild degenerative changes. Associate Professor Of Biblical Studies: JAZMIN Transcribe Date/Time: Feb 14 2025 4:37P Dictated by : ANGELA CANDELARIO MD This examination was interpreted and the report reviewed and electronically signed by: ANGELA CANDELARIO MD on Feb 14 2025 4:38PM EST [id number] Normal [facility] CNOVon 02-05-2025 CNOV Office Visit (FAMPWS ) NABOR HERRERA ([id number]) 1975 F Date Time Provider Department 02/05/25 8:20 AM DIONICIO BROWER During your visit today, we recorded the following information about you: Pulse Blood pressure Weight 78/minute 136/80 94.3 kg Dionicio Brower MD 02/05/2025 11:09 AM Signed The patient is a 49-year-old female with chronic migraine, presenting for evaluation of acute left lower back and hip pain aggravated by movement, coughing, and defecation. HPI Back Pain: - Onset last Wednesday after attempting to prevent a fall; no direct impact reported. - Initially asymptomatic for 1-2 days, then developed progressive pain and tightness. - Pain localized to the left lower back and hip, radiating up the side and exacerbated by coughing and positional changes. - Describes pain as feeling like bouncing on the stairs. - Associated with difficulty breathing, particularly during coughing episodes. - Reports chronic discoloration on the back due to heating pad use. - Denies numbness, tingling, or weakness in the legs. - Experiencing significant pain during bowel movements, causing sweating. - No urinary symptoms reported. - Using heating pads and ice packs for relief. - Taking baclofen, Lyrica, Tylenol, and ibuprofen with minimal relief. Headaches: - Poorly controlled; insurance issues preventing access to preferred medications. - Currently using Imitrex. 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 - Denies suicidal ideation. 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 MEDICATIONS: Current Outpatient Medications Medication Sig SUMAtriptan (IMITREX) 100 mg tablet Take 1 tablet by mouth as needed for migraine headache (see administration instructions). pregabalin (LYRICA) 25 mg capsule Take 1 capsule by mouth two times a day for 90 days. baclofen 10 mg tablet Take 1 tablet by mouth three times a day. methylPREDNISolone (MEDROL, FELIPE,) 4 mg Dose-Pack Take as instructed per package. triamcinolone acetonide (KENALOG) 0.1 % cream Apply 1 application to affected area two times a day. Do not use for more than two weeks at a time. albuterol (PROVENTIL) 2.5 mg /3 mL (0.083 %) nebulizer solution Use 3 mL via nebulizer every 6 hours as needed for wheezing/shortness of breath. Use over 5-15minutes. ibuprofen (MOTRIN) 800 mg tablet Take 1 tablet by mouth every 8 hours as needed for pain. Take with food. albuterol HFA (PROVENTIL HFA, VENTOLIN HFA) 90 mcg/actuation inhaler Inhale 2 Puffs as instructed every 6 hours as needed for Wheezing/Shortness of Breath. No current facility-administered medications for this visit. ALLERGIES: ALLERGIES Allergen Reactions Penicillins Unknown Vicodin [Hydrocodon* GI Upset States that was a reaction with compazine not an allergy. PAST MEDICAL HISTORY Diagnosis Date Bipolar 1 disorder ([facility]) [facility] DVT (deep venous thrombosis) ([facility]) 2006 Marijuana use Migraine with aura PE (pulmonary embolism) 2006 PTSD (post-traumatic stress disorder) sees psych at [facility] Schizoaffective disorder ([facility]) sees psych at [facility] Urinary tract infection, site not specified 2003 [...] lung Thyroid Sister Psychiatry Sister 2 sisters SOCIAL HISTORY[1] Reviewed current medications, allergies, past medical history, surgical history, family history and social history today. REVIEW OF SYSTEMS Constitutional: (+) diaphoresis with bowel movements Head: (+) headaches Ears/Nose/Mouth/Throat: (+) cough Cardiovascular: (-) chest discomfort Respiratory: (+) pain with inspiration, (-) shortness of breath Gastrointestinal: (+) painful bowel movements, (-) abdominal pain Genitourinary: (-) urinary symptoms Musculoskeletal: (+) left lower back pain, (+) back stiffness, (+) left hip soreness Skin: (+) chronic lower back discoloration Psychiatric: (+) stress, (-) suicidal ideation HEALTH MAINTENANCE: Reviewed health maintenance issues today and recommended the following in detail. Cervical Cancer Screening Never done Mammogram Screening due on 08/07/2022 Influenza Vaccine(1) due on 01/08/2025 LAB REVIEWED: VITALS: BP 136/80 Pulse 78 Wt 94.3 kg (208 lb) LMP 10/13/2006 SpO2 99% (more content not included)... Normal [facility] 01-29-2025 [facility] Telephone (DAISYWST) NABOR HERRERA ([id number]) 1975 F Date Time Provider Department 01/29/25 ALIX DOUGLAS During your visit today, we recorded the following information about you: Alix Anaya LPN 01/29/2025 10:27 AM Signed Pt came into the office. Show this nurse her home sleep test package, which was not opened. Pt stated she has tried to send package back. Advise Pt to get the slip showing they signed for it. So she had proof she sent it back. Alix Anaya LPN Allergies As of Date: 01/29/2025 Noted Allergy Reaction PENICILLINS 04/14/2006 16 - Unknown VICODIN (HYDROCODONE-ACETAMINOPHE*0 11/16/2006 8 - GI Upset Comments: States that was a reaction with compazine not an allergy. Date Reviewed: 12/06/2024 Reviewed by: Alix Douglas PA-C - Fully Assessed Prescriptions as of 01/29/2025 - erenumab-aooe (AIMOVIG AUTOINJECTOR) 70 mg/mL auto-injector Inject 1 mL subcutaneously once every month. Do not shake. - pregabalin (LYRICA) 25 mg capsule Take 1 capsule by mouth two times a day for 90 days. - SUMAtriptan (IMITREX) 100 mg tablet Take 1 tablet by mouth as needed for migraine headache (see administration instructions). - baclofen 10 mg tablet Take 1 tablet by mouth three times a day. - triamcinolone acetonide (KENALOG) 0.1 % cream Apply 1 application to affected area two times a day. Do not use for more than two weeks at a time. - hydrOXYzine pamoate (VISTARIL) 25 mg capsule Take 1 capsule by mouth four times daily. - albuterol (PROVENTIL) 2.5 mg /3 mL (0.083 %) nebulizer solution Use 3 mL via nebulizer every 6 hours as needed for wheezing/shortness of breath. Use over 5-15minutes. - ondansetron orally disintegrating (ZOFRAN ODT) 4 mg disintegrating tablet Take 1 tablet by mouth every 6 hours as needed for nausea/vomiting. - ibuprofen (MOTRIN) 800 mg tablet Take 1 tablet by mouth every 8 hours as needed for pain. Take with food. - albuterol HFA (PROVENTIL HFA, VENTOLIN HFA) 90 mcg/actuation inhaler Inhale 2 Puffs as instructed every 6 hours as needed for Wheezing/Shortness of Breath. Problem List As Of Date 01/29/2025 Noted Resolved Migraine without aura [G43.009] 08/27/2006 ABNORMAL FINDINGS NEC [R68.89] 11/16/2006 11/16/2006 Bipolar 1 disorder (HCC) [F31.9] PTSD (post-traumatic stress disorder) [F43.10] Schizoaffective disorder (HCC) [F25.9] Lumbago [M54.50] 07/17/2013 03/31/2024 Knee pain [M25.569] 12/01/2013 09/22/2018 Chronic back pain [M54.9, G89.29] 12/01/2013 Lumbar spondylosis [M47.816] 12/01/2013 Lumbar strain [S39.012A] 12/01/2013 03/31/2024 Chronic tension-type headache, intractable [G44*12/24/2015 03/31/2024 Chronic neck pain [M54.2, G89.29] 06/03/2017 Somatic dysfunction of cervical region [M99.01] 06/03/2017 03/31/2024 Somatic dysfunction of thoracic region [M99.02] 06/03/2017 03/31/2024 Somatic dysfunction of lumbar region [M99.03] 06/03/2017 03/31/2024 Lung nodules [R91.8] 05/04/2019 Migraine with aura, not intractable, without st*07/24/2021 03/31/2024 DDD (degenerative disc disease), cervical [M50.*07/24/2021 Other pulmonary embolism without acute cor pulm*08/16/2024 Nephrolithiasis [N20.0] 08/16/2024 Encounter Status:Closed by ALIX ANAYA on 01/29/25 [facility] CNCOon 12-20-2024 CNCO Letter Text [facility] CNPNon 12-07-2024 CNPN Telephone (NEMOWS) NABOR HERRERA ([id number]) 1975 F Date Time Provider Department 12/07/24 ALIX DOUGLAS During your visit today, we recorded the following information about you: Candice Shipman LPN 12/07/2024 12:52 PM Signed Submitted PA for both Aimovig 70 mg/ml auto injector and [id number] mg via EPIC. Will watch for determinations. KENJI Leslie Lori, LPN 12/07/2024 1:26 PM Signed Received approval for Ubrelvy. Contacted patient to advise her to follow up with pharmacy on medication. KENJI Leslie Lori, LPN 12/07/2024 1:26 PM Signed Aimovig PA denied. Forwarding to provider for review. KENJI Leslie Lori, LPN 12/07/2024 1:29 PM Signed When I spoke with patient advised her of approval and denial. Told her to follow up with pharmacy for ubrelvy and once we know how we are proceeding with the preventative medication will let her know. She voiced understanding. KENJI Leslie Lori, LPN 12/11/2024 11:59 AM Signed Message left for patient to see if patient wanted to continue with the lyrica or see if another medication would be approved in place of the Aimovig that was denied? Please advise. KENJI Leslie Lori, LPN 12/20/2024 10:38 AM Signed Letter sent to patient to contact us regard this encounter. Candice Shipman LPN Allergies As of Date: 12/07/2024 Noted Allergy Reaction PENICILLINS 04/14/2006 16 - Unknown VICODIN (HYDROCODONE-ACETAMINOPHE*0 11/16/2006 8 - GI Upset Comments: States that was a reaction with compazine not an allergy. Date Reviewed: 12/06/2024 Reviewed by: Alix Douglas PA-C - Fully Assessed Reason for Visit: Brandyn submitted [Other] Prescriptions as of 12/20/2024 - erenumab-aooe (AIMOVIG AUTOINJECTOR) 70 mg/mL auto-injector Inject 1 mL subcutaneously once every month. Do not shake. - ubrogepant (UBRELVY) 100 mg tablet Take 1 tablet by mouth as directed. Take 1 tablet PO as needed for acute treatment of migraine. May repeat second dose after 2 hours if incomplete response. Do not exceed 200 mg daily - pregabalin (LYRICA) 25 mg capsule Take 1 capsule by mouth two times a day for 90 days. - SUMAtriptan (IMITREX) 100 mg tablet Take 1 tablet by mouth as needed for migraine headache (see administration instructions). - baclofen 10 mg tablet Take 1 tablet by mouth three times a day. - triamcinolone acetonide (KENALOG) 0.1 % cream Apply 1 application to affected area two times a day. Do not use for more than two weeks at a time. - hydrOXYzine pamoate (VISTARIL) 25 mg capsule Take 1 capsule by mouth four times daily. - albuterol (PROVENTIL) 2.5 mg /3 mL (0.083 %) nebulizer solution Use 3 mL via nebulizer every 6 hours as needed for wheezing/shortness of breath. Use over 5-15minutes. - ondansetron orally disintegrating (ZOFRAN ODT) 4 mg disintegrating tablet Take 1 tablet by mouth every 6 hours as needed for nausea/vomiting. - ibuprofen (MOTRIN) 800 mg tablet Take 1 tablet by mouth every 8 hours as needed for pain. Take with food. - albuterol HFA (PROVENTIL HFA, VENTOLIN HFA) 90 mcg/actuation inhaler Inhale 2 Puffs as instructed every 6 hours as needed for Wheezing/Shortness of Breath. Problem List As Of Date 12/07/2024 Noted Resolved Migraine without aura [G43.009] 08/27/2006 ABNORMAL FINDINGS NEC [R68.89] 11/16/2006 11/16/2006 Bipolar 1 disorder (HCC) [F31.9] PTSD (post-traumatic stress disorder) [F43.10] Schizoaffective disorder (HCC) [F25.9] Lumbago [M54.50] 07/17/2013 03/31/2024 Knee pain [M25.569] 12/01/2013 09/22/2018 Chronic back pain [M54.9, G89.29] 12/01/2013 Lumbar spondylosis [M47.816] 12/01/2013 Lumbar strain [S39.012A] 12/01/2013 03/31/2024 Chronic tension-type headache, intractable [G44*12/24/2015 03/31/2024 Chronic neck pain [M54.2, G89.29] 06/03/2017 Somatic dysfunction of cervical region [M99.01] 06/03/2017 03/31/2024 Somatic dysfunction of thoracic region [M99.02] 06/03/2017 03/31/2024 Somatic dysfunction of lumbar region [M99.03] 06/03/2017 03/31/2024 Lung nodules [R91.8] 05/04/2019 Migraine with aura, not intractable, without st*07/24/2021 03/31/2024 DDD (degenerative disc disease), cervical [M50.*07/24/2021 Other pulmonary embolism without acute cor pulm*08/16/2024 Nephrolithiasis [N20.0] 08/16/2024 Encounter Status:Closed by CANDICE SHIPMAN on 12/20/24 Normal [facility] CNOVon 12-06-2024 CNOV Office Visit (NEMOWS ) NABOR HERRERA ([id number]) 1975 F Date Time Provider Department 12/06/24 3:00 PM ALIX DOUGLAS During your visit today, we recorded the following information about you: Pulse Respiration Blood pressure Weight 73/minute 16/minute 147/84 91.2 kg Candice Shipman LPN 12/06/2024 3:32 PM Signed 12/06/2024 PROMIS Global [facility] Physical Health Summary Physical health: Poor Everyday physical activity, ability: Completely Fatigue: Moderate Pain level: 6 General health: Fair Social activities/roles, ability: Fair Physical Health T-Score 39.8 (Fair) Physical Health Percentile 15 PROMIS [facility] Mental Health Summary Quality of life: Good Mental health (mood,thinking): Poor Social satisfaction: Poor Emotional problems (anxious,depressed): Often Mental Health T-Score 31.3 (Fair) Mental Health Percentile 3 Percentiles provide an indication of how a patient's score ranks in relation to the [place] general population. > 31st percentile is within normal limits or better *< 31st percentile is at least ? SD worse than population, which may be clinically relevant < 16th percentile is at least 1 SD worse than population and warrants attention Alix Douglas PA-C 12/06/2024 3:32 PM Signed [facility] Follow up CC: Headache Follow up Last Visit: 08/16/24 Assessment AND Plan: Nabor Herrera is a 49 year old female with a history of pulmonary embolism, DVT, migraine, schizoaffective disorder, bipolar 1, nephrolithiasis. Her examination demonstrates no neurologic deficits. Patient with chronic headaches for years, previously managed through primary care and neurology. Notes at one point she was well managed on Aimovig but she lost insurance. Notes now she is having daily migrainous headaches, taking Tylenol and Imitrex daily. Headaches are migrainous in description but likely combination of medication overuse headache as well. No new symptoms that would warrant additional workup at this time, no changes to the headache and presentation. No autonomic features, new onset with Valsalva, position change or exertion. Notes that she just saw her eye doctor and had a dilated exam with updated prescription. Has new bifocals on today. Was on topiramate from primary care but notes history of kidney stones and has had kidney stones since being on this medication. Will have her stop this medication. Additionally, has history of DVT and pulmonary embolism so we will avoid Imitrex at this time. Discussed starting Nurtec for abortive relief and patient is amenable. Does note that she will need something for the next month, discussed only refilling for 1 more month and the increased risk for clotting, patient agrees and understands. For abortive relief, discussed preventatives including restarting an injectable and patient would like to restart injectable as it was very effective for her. Jasonovrobbie is on her formulary so we will send this into her pharmacy. Encouraged conservative therapy as well. Additionally, patient with signs and symptoms of sleep apnea, has had issues with sleep her whole life but is now experiencing more morning headaches, frequent awakenings in the nighttime and dry mouth. Is unsure if she snores. Will order home sleep study to evaluate for ANNALISA. Patient agreeable to treatment plan of care at this time, questions were answered. Patient to follow-up in 4 months. Beverly was seen today for new patient. Diagnoses and all orders for this visit: Migraine without aura and with status migrainosus, not intractable - CONSULT TO NEUROLOGY - fremanezumab-vfrm 225 mg/1.5 mL subcutaneous syringe (AJOVY); Inject 1.5 mL subcutaneously once every month. Do not shake. - rimegepant (NURTEC ODT) 75 mg disintegrating tablet; Take 1 tablet by mouth once daily as needed. ANNALISA (obstructive sleep apnea) - HOME SLEEP APNEA TEST (HSAT); Future Other orders - SUMAtriptan (IMITREX) 50 mg tablet; Take 1 tablet by mouth as needed for migraine headache (see administration instructions). at onset of headache. May repeat after 2 hours. All options for treatment discussed.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 Patient presents today for office visit for 4 week follow up on her migraines. Using Sumatriptan prn. Discussed limiting. Topamax 25 mg at bedtime added. Migraines are still pretty bad. Mentions life stressors that she's currently going through that trigger the migraines. Father just so not sleeping well etc. No side effects though. Has not noticed a difference with the medication. See previous note: Hx of migraines. Using Sumatriptan prn. Having 8-10 migraines a month. Migraines are more frequent recently due to life stressors. Pharmacy was only filling 6 tablets for the month whereas she was getting 12 for the month. Another provider had increase the amount of imitrex. She does not use more than one a in 24 hour. Discussed limiting imitrex usage. No focal neuro issues. She may want to consider seeing pain management for her neck at some point. No heartburn. No breathing issues or chest pain. MEDICATIONS: Current Outpatient Medications Medication Sig SUMAtriptan (IMITREX) 100 mg tablet Take 1 tablet (100 mg) by mouth as needed for migraine headache (see administration instructions). albuterol (PROVENTIL) 2.5 mg /3 mL (0.083 %) nebulizer solution Use 3 mL via nebulizer every 6 hours as needed for wheezing/shortness of breath. Use over 5-15minutes. ondansetron orally disintegrating (ZOFRAN ODT) 4 mg disintegrating tablet Take 1 tablet by mouth every 6 hours as needed for nausea/vomiting. topiramate (TOPAMAX) 25 mg tablet Take 1 tablet by mouth daily at bedtime. baclofen 10 mg tablet Take 1 tablet by mouth three times a day. ibuprofen (MOTRIN) 800 mg tablet Take 1 tablet by mouth every 8 hours as needed for pain. Take with food. albuterol HFA (PROVENTIL HFA, VENTOLIN HFA) 90 mcg/actuation inhaler Inhale 2 Puffs as instructed every 6 hours as needed for Wheezing/Shortness of Breath. No current facility-administered medications for this visit. ALLERGIES: ALLERGIES Allergen Reactions Penicillins Unknown Vicodin [Hydrocodon* GI Upset States that was a reaction with compazine not an allergy. PAST MEDICAL HISTORY Diagnosis Date Bipolar 1 disorder ([facility]) [facility] DVT (deep venous thrombosis) ([facility]) 2006 Marijuana use Migraine with aura PE (pulmonary embolism) 2006 PTSD (post-traumatic stress disorder) [facility] psych [facility] Schizoaffective disorder ([facility]) [facility] psych [facility] Urinary tract infection, site not specified 2003 [...] History Tobacco Use Smoking status: Every Day Current packs/day: 0.50 Average packs/day: 0.5 packs/day for 14.0 years (7.0 ttl pk-yrs) Types: Cigarettes Smokeless tobacco: Never Substance Use Topics Alcohol use: No Drug use: Not Currently Types: Marijuana Comment: occasional marijuana Reviewed current medications, allergies, past medical history, surgical history, family history and social history today. REVIEW OF SYSTEMS All other reviewed and negative other than HPI. VITALS: BP 137/83 Pulse 85 Ht 172.7 cm (5' 8) Wt 90.7 kg (200 lb) LMP 10/13/2006 BMI 30.41 kg/m? Last 4 Encounter Wt Readings: Date: Wt: 04/08/2024 91.7 kg (202 lb 2.6 oz) 03/31/2024 97 kg (213 lb 13.5 oz) 10/22/2023 90.7 kg (200 lb) 10/13/2023 90.7 kg (200 lb) PHYSICAL EXAMINATION: General appearance: Well appearing, alert, in no acute distress, well-hydrated, well nourished. Tearful. Skin: Skin color, texture, turgor normal, no suspicious rashes or lesions Lungs: Lungs clear to auscultation. No wheezing, rhonchi, rales Heart: RRR without murmur, gallop, or rubs. No ectopy Abdomen: Normal abdominal exam, Abdomen soft, non-tender. Bowel sounds normal. No masses, organomegaly Extremities: No deformities, edema, skin discoloration, clubbing or cyanosis. Good capillary refill. ASSESSMENT/PLAN: 1. Anxiety - ICD9: 300.00, ICD10: F41.9 (primary diagno (more content not included)... Normal [facility] CNOVon 04-11-2024 CNOV Office Visit (FAMPWS ) NABOR HERRERA ([id number]) 1975 F Date Time Provider Department 04/11/24 2:00 PM BRUNA PARKER During your visit today, we recorded the following information about you: Pulse Respiration Blood pressure 104/minute 16/minute 126/92 Bruna Parker APRN.TELEGRAPH MESSENGER 04/12/2024 5:14 PM Signed This is a 48 year old female who presents today with: Patient presents with: Recheck: Follow up [facility]- not feeling any better; c/o body aches, cough, vomiting, diarrhea, headache, chest presssure; tested negative for COVID/flu HISTORY OF PRESENT ILLNESS: Nabor Herrera is a 48 year old female. Patient presents with: Recheck: Follow up [facility]- not feeling any better; c/o body aches, cough, vomiting, diarrhea, headache, chest presssure; tested negative for COVID/flu Pt presents today with complaint of ongoing URI symptoms. Went to urgent care on 04/08 with uri symptoms. She was diagnosed with bronchitis. She was started on prednisone. Her covid testing was negative. Cough is not productive. Refers that she had an aerosol tx in urgent care which was helpful. She was starting to feel improved, but then things settled back in the chest again. Refers that her symptoms are worse. Still with upper respiratory and nasal symptoms. She reports that her stools today are like water. She is having vomiting. This started about 2 luz ago. Her stomach feels like in knots. Refers not keeping anything down, but she has been able to sip water. PAST MEDICAL HISTORY: PAST MEDICAL HISTORY Diagnosis Date Bipolar 1 disorder ([facility]) sees psych at [facility] DVT (deep venous thrombosis) ([facility]) 2006 Marijuana use Migraine with aura PE (pulmonary embolism) 2006 PTSD (post-traumatic stress disorder) sees psych at [facility] Schizoaffective disorder ([facility]) sees psych at [facility] Urinary tract infection, site not specified 2003 PAST SURGICAL HISTORY Procedure Laterality Date DELIVERY ONLY x 3 , low cervical LIG/TRNSXJ FLP TUBE ABDL/VAG APPR UNI/BI 2001 Tubal ligation PAST SURGICAL HISTORY OF Left 2017 IANDD left leg wound TOTAL ABDOMINAL HYSTERECT W/WO RMVL TUBE OVARY -says somethign cancerous or precancerous ALLERGIES Penicillins and Vicodin [Hydrocodone-Acetaminophen] MEDICATIONS Current Outpatient Medications Medication Sig predniSONE (DELTASONE) 20 mg tablet Take 2 tablets by mouth once daily for 5 days. benzonatate (TESSALON PERLE) 100 mg capsule Take 2 capsules by mouth three times a day as needed for cough for up to 7 days. topiramate (TOPAMAX) 25 mg tablet Take 1 tablet by mouth daily at bedtime. SUMAtriptan (IMITREX) 100 mg tablet Take 1 tablet (100 mg) by mouth as needed for migraine headache (see administration instructions). baclofen 10 mg tablet Take 1 tablet by mouth three times a day. famotidine (PEPCID) 20 mg tablet Take 1 tablet by mouth at bedtime as needed. ibuprofen (MOTRIN) 800 mg tablet Take 1 tablet by mouth every 8 hours as needed for pain. Take with food. albuterol HFA (PROVENTIL HFA, VENTOLIN HFA) 90 [...] History Tobacco Use Smoking status: Every Day Current packs/day: 0.50 Average packs/day: 0.5 packs/day for 14.0 years (7.0 ttl pk-yrs) Types: Cigarettes Smokeless tobacco: Never Substance Use Topics Alcohol use: No Drug use: Not Currently Types: Marijuana Comment: occasional marijuana EXAM: BP 126/92 Pulse 104 Resp 16 LMP 10/13/2006 SpO2 97% PHYSICAL EXAM: General Appearance: Well appearing, alert, in no acute distress, well-hydrated, well nourished.. Skin: Skin color, texture, turgor normal, no suspicious rashes or lesions. Head: Normocephalic, no masses, lesions, tenderness or abnormalities. Eyes: Anicteric sclera. Pupils are equally round and reactive to light. Extraocular movements are intact. . Ears: External ears normal, canals clear. Normal TMs bilaterally. Oropharynx: Lips, mucosa, and tongue normal, teeth and gums normal, oropharynx normal. Neck: Supple, no adenopathy; thyroid symmetric, normal size, no bruits. Lungs: scattered wheezing and rhonchi throughout. Heart: RRR without murmur, gallop, or rubs. No ectopy. Extremities: No deformities, edema, skin discoloration, clubbing or cyanosis. Good capillary refill. . Neurologic: Gait normal. ASSESSMENT/PLAN: 1. Bronchitis - ICD9: 490, ICD10: J40 (primary diagnosis) Start n (more content not included)... Normal [facility] 04-09-2024 [facility] Telephone (UCWSTR) NABOR HERRERA ([id number]) 1975 F Date Time Provider Department 04/09/24 CALLIE ORDONEZ [facility] During your visit today, we recorded the following information about you: Callie Ordonez APRN.[facility] 04/09/2024 8:00 AM Signed Please advise patient esophoria COVID/flu/RSV test was negative. Follow instructions given by provider at visit, f/u with PCP if symptoms persist or worsen. Callie Ordonez APRN.[facility] Duran Mann MA 04/09/2024 8:29 AM Signed Pt was notified of the results. Pt verbalized understanding. Duran Mann MA Allergies As of Date: 04/09/2024 Noted Allergy Reaction PENICILLINS 04/14/2006 16 - Unknown VICODIN (HYDROCODONE-ACETAMINOPHE*0 11/16/2006 8 - GI Upset Comments: States that was a reaction with compazine not an allergy. Date Reviewed: 04/08/2024 Reviewed by: Dashawn Madden MA - Fully Assessed Reason for Visit: Results [95] Prescriptions as of 04/09/2024 - predniSONE (DELTASONE) 20 mg tablet Take 2 tablets by mouth once daily for 5 days. - benzonatate (TESSALON PERLE) 100 mg capsule Take 2 capsules by mouth three times a day as needed for cough for up to 7 days. - topiramate (TOPAMAX) 25 mg tablet Take 1 tablet by mouth daily at bedtime. - SUMAtriptan (IMITREX) 100 mg tablet Take 1 tablet (100 mg) by mouth as needed for migraine headache (see administration instructions). - baclofen 10 mg tablet Take 1 tablet by mouth three times a day. - famotidine (PEPCID) 20 mg tablet Take 1 tablet by mouth at bedtime as needed. - ibuprofen (MOTRIN) 800 mg tablet Take 1 tablet by mouth every 8 hours as needed for pain. Take with food. - albuterol HFA (PROVENTIL HFA, VENTOLIN HFA) 90 mcg/actuation inhaler Inhale 2 Puffs as instructed every 6 hours as needed for Wheezing/Shortness of Breath. Problem List As Of Date 04/09/2024 Noted Resolved Migraine without aura [G43.009] 08/27/2006 ABNORMAL FINDINGS NEC [R68.89] 11/16/2006 11/16/2006 Bipolar 1 disorder (HCC) [F31.9] PTSD (post-traumatic stress disorder) [F43.10] Schizoaffective disorder (HCC) [F25.9] Lumbago [M54.50] 07/17/2013 03/31/2024 Knee pain [M25.569] 12/01/2013 09/22/2018 Chronic back pain [M54.9, G89.29] 12/01/2013 Lumbar spondylosis [M47.816] 12/01/2013 Lumbar strain [S39.012A] 12/01/2013 03/31/2024 Chronic tension-type headache, intractable [G44*12/24/2015 03/31/2024 Chronic neck pain [M54.2, G89.29] 06/03/2017 Somatic dysfunction of cervical region [M99.01] 06/03/2017 03/31/2024 Somatic dysfunction of thoracic region [M99.02] 06/03/2017 03/31/2024 Somatic dysfunction of lumbar region [M99.03] 06/03/2017 03/31/2024 Lung nodules [R91.8] 05/04/2019 Migraine with aura, not intractable, without st*07/24/2021 03/31/2024 DDD (degenerative disc disease), cervical [M50.*07/24/2021 Encounter Status:Closed by DURAN MANN on 04/09/24 [facility] CNOVon 04-08-2024 CNOV Office Visit (UCWSTR ) NABOR HERRERA ([id number]) 1975 F Date Time Provider Department 04/08/24 8:45 AM NOREEN TENORIO [facility] During your visit today, we recorded the following information about you: Temperature Pulse Respiration Blood pressure 99 degrees 110/minute 20/minute 174/108 Weight 91.7 kg Dashawn Madden MA 04/08/2024 9:14 AM Signed Ipratropium [place] AND Albuterol Sulfate solution aerosol treatment given per provider's orders. Prior to treatment O2 sat is 96%. Treatment completed. Tolerated well. ISABELA Gonzales Cara R, PA-C 04/08/2024 9:34 AM Signed This note was created using RIISnetriter. Subjective Nabor Herrera is a 48 year old female. HPI Presents with a chief complaint of cough and chest congestion for 2 days. She has had some hot flashes but no recorded fever. She does have a history of asthma and has been wheezing and short of breath. She was exposed to COVID by some family members recently. She has had some diarrhea. No vomiting. She has been using her inhalers. Review of Systems Constitutional: Positive for chills and fatigue. HENT: Positive for congestion and ear pain. Negative for sinus pressure and sinus pain. Respiratory: Positive for cough, shortness of breath and wheezing. Cardiovascular: Negative. Gastrointestinal: Positive for diarrhea. Negative for abdominal pain and vomiting. Genitourinary: Negative. Musculoskeletal: Positive for myalgias. All other systems reviewed and are negative. PAST MEDICAL HISTORY Diagnosis Date Bipolar 1 disorder ([facility]) [facility] D[facility] (deep venous thrombosis) ([facility]) 2006 Marijuana use Migraine with aura PE (pulmonary embolism) 2006 PTSD (post-traumatic stress disorder) [facility] Schizoaffective disorder ([facility]) [facility] Urinary tract infection, site not specified 2003 Current Outpatient Medications Medication Sig Dispense Refill topiramate (TOPAMAX) 25 mg tablet Take 1 tablet by mouth daily at bedtime. 30 tablet 2 SUMAtriptan (IMITREX) 100 mg tablet Take 1 tablet (100 mg) by mouth as needed for migraine headache (see administration instructions). 9 tablet 2 baclofen 10 mg tablet Take 1 tablet by mouth three times a day. 90 tablet 2 famotidine (PEPCID) 20 mg tablet Take 1 tablet by mouth at bedtime as needed. 30 tablet 2 ibuprofen (MOTRIN) 800 mg tablet Take 1 tablet by mouth every 8 hours as needed for pain. Take with food. 30 tablet 0 albuterol HFA (PROVENTIL HFA, VENTOLIN HFA) 90 mcg/actuation inhaler Inhale 2 Puffs as instructed every 6 hours as needed for Wheezing/Shortness of Breath. 1 Inhaler 0 predniSONE (DELTASONE) 20 mg tablet Take 2 tablets by mouth once daily for 5 days. 10 tablet 0 benzonatate (TESSALON PERLE) 100 mg capsule Take 2 capsules by mouth three times a day as needed for cough for up to 7 days. 30 capsule 0 No current facility-administered medications for [...] History Tobacco Use Smoking status: Every Day Current packs/day: 0.50 Average packs/day: 0.5 packs/day for 14.0 years (7.0 ttl pk-yrs) Types: Cigarettes Smokeless tobacco: Never Substance Use Topics Alcohol use: No Drug use: Not Currently Types: Marijuana Comment: occasional marijuana Objective BP 174/108 Pulse 110 Temp 37.2 ?C (99 ?F) (Right Tympanic) Resp 20 Wt 91.7 kg (202 lb 2.6 oz) LMP 10/13/2006 SpO2 96% BMI 30.74 kg/m? Physical Exam Vitals reviewed. Constitutional: Appearance: Normal appearance. HENT: Head: Normocephalic and atraumatic. Right Ear: Tympanic membrane, ear canal and external ear normal. Left Ear: Tympanic membrane, ear canal and external ear normal. Nose: Congestion present. Mouth/Throat: Mouth: Mucous membranes are moist. Pharynx: Oropharynx is clear. Cardiovascular: Rate and Rhythm: Normal rate and regular rhythm. Heart sounds: Normal heart sounds. Pulmonary: Effort: Pulmonary effort is normal. No respiratory distress. Breath sounds: Wheezing and rhonchi present. Musculoskeletal: Cervical back: Neck supple. Skin: General: Skin is warm and dry. Neurological: General: No focal deficit present. Mental Status: She is alert and oriented to person, place, and time. As (more content not included)... Normal [facility] COVID AND INFLUENZA A/B AND RSV PCR, ROUTINEon 04-08-2024 SARS-CoV-2 (COVID-19) RNA JOHANNE+probe Ql (Unsp spec) SARS-COV-2 (AGENT OF COVID-19) RNA: Not detected INFLUENZA A RNA: Not detected INFLUENZA B RNA: Not detected RESPIRATORY SYNCYTIAL VIRUS (RSV) RNA: Not detected Normal [facility] Comment on above: Performed By: #### C VFLRS ####[facility] LABCLIA [id number] [place] [address] [place] XR CHEST 2V FRONTAL/LATon XR CHEST 2V FRONTAL/LAT * * *Final Report* * * DATE OF EXAM: Apr 08 2024 9:01AM WOX [id number] - XR CHEST 2V FRONTAL/LAT / PROCEDURE REASON: Wheezing * * * * Physician Interpretation * * * * EXAMINATION: CHEST RADIOGRAPH (2 VIEW FRONTAL and LATERAL) PATIENT/TECHNOLOGIST PROVIDED HISTORY: flu symptoms and cough, family covid pos. CLINICAL HISTORY: 48 years old Female with Wheezing MQ: XC2_6 EXAM DATE/TIME: 04/08/2024 9:01 AM COMPARISON: Chest radiograph(s) dated 08/11/2023 RESULT: Lines, tubes, and devices: None. Lungs and pleura: Increased lung markings in the RIGHT infrahilar region probably secondary to subsegmental atelectasis. No confluent consolidation. No pleural effusion or pneumothorax. Cardiomediastinal silhouette: Normal cardiomediastinal silhouette. Bones and soft tissues: Mild endplate degenerative changes in the thoracic spine. IMPRESSION: Increased lung markings in the RIGHT infrahilar region probably secondary to subsegmental atelectasis. No confluent consolidation. Associate Professor Of Biblical Studies: JAZMIN Transcribe Date/Time: Apr 08 2024 9:03A Dictated by : JAYME DANIELS DO This examination was interpreted and the report reviewed and electronically signed by: JAYME DANIELS DO on Apr 08 2024 9:06AM EST [id number] Normal [facility] XR Chest PA and Lateralon IMPRESSION: Increased lung markings in the RIGHT infrahilar region probably secondary to subsegmental atelectasis. No confluent consolidation. Associate Professor Of Biblical Studies: JAZMIN Transcribe Date/Time: Apr 08 2024 9:03A Dictated by : JAYME DANIELS DO This examination was interpreted and the report reviewed and electronically signed by: JAYME DANIELS DO on Apr 08 2024 9:06AM EST DIVISION OF RADIOLOGY * * *Final Report* * * DATE OF EXAM: Apr 08 2024 9:01AM WOX [id number] - XR CHEST 2V FRONTAL/LAT / PROCEDURE REASON: Wheezing * * * * Physician Interpretation * * * * EXAMINATION: CHEST RADIOGRAPH (2 VIEW FRONTAL & LATERAL) PATIENT/TECHNOLOGIST PROVIDED HISTORY: flu symptoms and cough, family covid pos. CLINICAL HISTORY: 48 years old Female with Wheezing MQ: XC2_6 EXAM DATE/TIME: 04/08/2024 9:01 AM COMPARISON: Chest radiograph(s) dated 08/11/2023 RESULT: Lines, tubes, and devices: None. Lungs and pleura: Increased lung markings in the RIGHT infrahilar region probably secondary to subsegmental atelectasis. No confluent consolidation. No pleural effusion or pneumothorax. Cardiomediastinal silhouette: Normal cardiomediastinal silhouette. Bones and soft tissues: Mild endplate degenerative changes in the thoracic spine. DIVISION OF RADIOLOGY Provider, Kortney Garcia - 04/08/2024 * * *Final Report* * * DATE OF EXAM: Apr 08 2024 9:01AM WOX [id number] - XR CHEST 2V FRONTAL/LAT / PROCEDURE REASON: Wheezing * * * * Physician Interpretation * * * * EXAMINATION: CHEST RADIOGRAPH (2 VIEW FRONTAL & LATERAL) PATIENT/TECHNOLOGIST PROVIDED HISTORY: flu symptoms and cough, family covid pos. CLINICAL HISTORY: 48 years old Female with Wheezing MQ: XC2_6 EXAM DATE/TIME: 04/08/2024 9:01 AM COMPARISON: Chest radiograph(s) dated 08/11/2023 RESULT: Lines, tubes, and devices: None. Lungs and pleura: Increased lung markings in the RIGHT infrahilar region probably secondary to subsegmental atelectasis. No confluent consolidation. No pleural effusion or pneumothorax. Cardiomediastinal silhouette: Normal cardiomediastinal silhouette. Bones and soft tissues: Mild endplate degenerative changes in the thoracic spine. IMPRESSION IMPRESSION: Increased lung markings in the RIGHT infrahilar region probably secondary to subsegmental atelectasis. No confluent consolidation. Associate Professor Of Biblical Studies: PSCB Transcribe Date/Time: Apr 08 2024 9:03A Dictated by : JAYME DANIELS DO This examination was interpreted and the report reviewed and electronically signed by: JAYME DANIELS DO on Apr 08 2024 9:06AM EST [facility] Radiology Study observation (narrative) [facility] XR Chest PA and LateralOrder ed By: [facility] Provider on 04-08-2024 [facility] CNOVon 03-31-2024 CNOV Office Visit (FAMPWS ) NABOR HERRERA ([id number]) 1975 F Date Time Provider Department 03/31/24 9:40 AM DIONICIO BROWER During your visit today, we recorded the following information about you: Pulse Blood pressure Weight Height 72/minute 118/84 97 kg 1.727 m Dionicio Brower MD 03/31/2024 10:30 AM Signed Patient presents with: Migraine HPI: Patient presents today for office visit for follow up. Hx of migraines. Using Sumatriptan prn. Having 8-10 migraines a month. Migraines are more frequent recently due to life stressors. Pharmacy was only filling 6 tablets for the month whereas she was getting 12 for the month. Another provider had increase the amount of imitrex. She does not use more than one a in 24 hour. Discussed limiting imitrex usage. No focal neuro issues. She may want to consider seeing pain management for her neck at some point. No heartburn. No breathing issues or chest pain. MEDICATIONS: Current Outpatient Medications Medication Sig baclofen 10 mg tablet Take 1 tablet by mouth three times a day. SUMAtriptan (IMITREX) 100 mg tablet Take 1 tablet (100 mg) by mouth as needed for migraine headache (see administration instructions) (Okay to repeat 2nd dose in 2-3 hours if migraine is still present). ofloxacin (FLOXIN) 0.3 % otic solution Use 10 Drops in the right ear once daily. famotidine (PEPCID) 20 mg tablet Take 1 tablet by mouth at bedtime as needed. ibuprofen (MOTRIN) 800 mg tablet Take 1 tablet by mouth every 8 hours as needed for pain. Take with food. albuterol HFA (PROVENTIL HFA, VENTOLIN HFA) 90 mcg/actuation inhaler Inhale 2 Puffs as instructed every 6 hours as needed for Wheezing/Shortness of Breath. No current facility-administered medications for this visit. ALLERGIES: ALLERGIES Allergen Reactions Penicillins Unknown Vicodin [Hydrocodon* GI Upset States that was a reaction with compazine not an allergy. PAST MEDICAL HISTORY Diagnosis Date Bipolar 1 disorder ([facility]) [facility] psych [facility] DVT (deep venous thrombosis) ([facility]) 2006 Marijuana use Migraine with aura PE [...] History Tobacco Use Smoking status: Every Day Current packs/day: 0.50 Average packs/day: 0.5 packs/day for 14.0 years (7.0 ttl pk-yrs) Types: Cigarettes Smokeless tobacco: Never Substance Use Topics Alcohol use: No Drug use: Not Currently Types: Marijuana Comment: occasional marijuana Reviewed current medications, allergies, past medical history, surgical history, family history and social history today. REVIEW OF SYSTEMS All other reviewed and negative other than HPI. HEALTH MAINTENANCE: Reviewed health maintenance issues today and recommended the following in detail. Depression Screening Never done Cervical Cancer Screening Never recommended. Colorectal Cancer Screening -recommended. Mammogram Screening due on 08/07/2022 Influenza Vaccine(1) due on 01/09/2024 Covid-19 Vaccine( season) due on 01/09/2024 VITALS: BP 118/84 Pulse 72 Ht 172.7 cm (5' 8) Wt 97 kg (213 lb 13.5 oz) LMP 10/13/2006 SpO2 96% BMI 32.52 kg/m? Last 4 Encounter Wt Readings: Date: Wt: 03/31/2024 97 kg (213 lb 13.5 oz) 10/22/2023 90.7 kg (200 lb) 10/13/2023 90.7 kg (200 lb) 08/11/2023 88.5 kg (195 lb) PHYSICAL EXAMINATION: General appearance: Well appearing, alert, in no acute distress, well-hydrated, well nourished. Skin: Skin color, texture, turgor normal, no suspicious rashes or lesions Head: Normocephalic, no masses, lesions, tenderness or abnormalities Lungs: Lungs clear to auscultation. No wheezing, rhonchi, rales Heart: RRR without murmur, gallop, or rubs. No ectopy Abdomen: Normal abdominal exam, Abdomen soft, non-tender. Bowel sounds normal. No masses, organomegaly Extremities: No deformities, edema, skin discoloration, clubbing or cyanosis. Good capillary refill. ASSESSMENT/PLAN: 1. Migraine without aura and with status migrainosus, not intractable - ICD9: 346.12, ICD10: G43.001 (primary diagnosis) - make sure not using more than (more content not included)... Normal [facility] CBC W Auto Differential pane l (Bld)on 08-12-2023 Basophils (Bld) [#/Vol] 0.03 10*3/uL <0.11 k/uL [facility] Basophils/100 WBC (Bld) 0.4 % [facility] Differential cell count method Nom (Bld) Auto [facility] Eosinophils (Bld) [#/Vol] <0.46 k/uL [facility] Eosinophils/100 WBC (Bld) 0.3 % [facility] Erythrocyte distribution width (RBC) [Ratio] 13.2 % 11.5 - 15.0 % [facility] Hematocrit (Bld) [Volume fraction] 42.5 % 36.0 - 46.0 % [facility] Hemoglobin (Bld) [Mass/Vol] 14.5 g/dL 11.5 - 15.5 g/dL [facility] Immature granulocytes (Bld) [#/Vol] <0.10 k/uL [facility] Immature granulocytes/100 WBC (Bld) 0.3 % [facility] Lymphocytes (Bld) [#/Vol] 2.29 10*3/uL 1.00 - 4.00 k/uL [facility] Lymphocytes/100 WBC (Bld) 29.9 % [facility] MCH (RBC) [Entitic mass] 32.5 pg 26.0 - 34.0 pg [facility] MCHC (RBC) [Mass/Vol] 34.1 g/dL 30.5 - 36.0 g/dL [facility] MCV (RBC) [Entitic vol] 95.3 fL 80.0 - 100.0 fL [facility] Monocytes (Bld) [#/Vol] 0.58 10*3/uL <0.87 k/uL [facility] Monocytes/100 WBC (Bld) 7.6 % [facility] Neutrophils (Bld) [#/Vol] 4.73 10*3/uL 1.45 - 7.50 k/uL [facility] Neutrophils/100 WBC (Bld) 61.5 % [facility] Nucleated RBC (Bld) [#/Vol] <0.01 k/uL [facility] Nucleated RBC/100 WBC (Bld) [Ratio] 0.0 /100 WBC [facility] Platelet mean volume (Bld) [Entitic vol] 10.9 fL 9.0 - 12.7 fL [facility] Platelets (Bld) [#/Vol] 225 10*3/uL 150 - 400 k/uL [facility] RBC (Bld) [#/Vol] 4.46 10*6/uL 3.90 - 5.2 0 m/uL [facility] WBC (Bld) [#/Vol] 7.67 10*3/uL 3.70 - 11.00 k/uL [facility] XR Chest PA and Lateralon IMPRESSION: No acute radiographic abnormality. Associate Professor Of Biblical Studies: PSCB Transcribe Date/Time: Aug 12 2023 1:51P Dictated by : EULALIA BECKWITH MD This examination was interpreted and the report reviewed and electronically signed by: EULALIA BECKWITH MD on Aug 12 2023 1:52PM [facility] DIVISION OF RADIOLOGY * * *Final Report* * * DATE OF EXAM: Aug 11 2023 5:06PM WOX 5291 - XR CHEST 2V FRONTAL/LAT / PROCEDURE REASON: multiple diagnoses * * * * Physician Interpretation * * * * EXAMINATION: CHEST RADIOGRAPH (2 VIEW FRONTAL & LATERAL) CLINICAL HISTORY: URI, acute Bronchitis MQ: XC2_6 EXAM DATE/TIME: 08/11/2023 5:06 PM COMPARISON: 04/19/2014 RESULT: Lines, tubes, and devices: None. Lungs and pleura: No consolidation. No lung mass. No pleural effusion. No pneumothorax. Cardiomediastinal silhouette: Normal cardiomediastinal silhouette. Bones and soft tissues: Unremarkable. DIVISION OF RADIOLOGY Provider, [facility] - 08/12/2023 * * *Final Report* * * DATE OF EXAM: Aug 11 2023 5:06PM WOX 5291 - XR CHEST 2V FRONTAL/LAT / PROCEDURE REASON: multiple diagnoses * * * * Physician Interpretation * * * * EXAMINATION: CHEST RADIOGRAPH (2 VIEW FRONTAL & LATERAL) CLINICAL HISTORY: URI, acute Bronchitis MQ: XC2_6 EXAM DATE/TIME: 08/11/2023 5:06 PM COMPARISON: 04/19/2014 RESULT: Lines, tubes, and devices: None. Lungs and pleura: No consolidation. No lung mass. No pleural effusion. No pneumothorax. Cardiomediastinal silhouette: Normal cardiomediastinal silhouette. Bones and soft tissues: Unremarkable. IMPRESSION IMPRESSION: No acute radiographic abnormality. Associate Professor Of Biblical Studies: JAZMIN Transcribe Date/Time: Aug 12 2023 1:51P Dictated by : EULALIA BECKWITH MD This examination was interpreted and the report reviewed and electronically signed by: EULALIA BECKWITH MD on Aug 12 2023 1:52PM EST [facility] XR Chest PA and LateralOrder ed By: [facility] Provider on 08-12-2023 [facility] XR Chest PA and Lateralon Radiology Study observation (narrative) [facility] Absolute lymphocyte countOrd ered By: Carlos Willams on 06-14-2023 Lymphocytes Auto (Unsp spec) [#/Vol] 2.32 10*3/uL 0.83-4.51 [facility] Automated lymphocyte count a s percentage of total leukocytesOrdered By: Carlos Willams on 06-14-2023 Lymphocytes/100 WBC Auto (Unsp spec) 36.7 % 19-41 [facility] Basophil percentageOrdered B y: Carlos Willams on 06-14-2023 Basophil percentage 10-25 SEEN /hpf 0-5 [facility] Basophils/100 WBC (Bld) 0.5 % 0-1 [facility] Chloride [Moles/Vol] 106 mmol/L 98-107 [facility] Eosinophils/100 WBC (Bld) 1.3 % 0-5 [facility] Glucose [Mass/Vol] 109 mg/dL 74-106 [facility] Comment on above: Fasting Glucose resu lt from 100 to 125 mg/dL suggests IMPAIRED HOMEOSTASIS per A.D.A. criteria. Hemoglobin (Bld) [Mass/Vol] 13.1 g/dL 12.0-15.0 [facility] Monocytes/100 WBC (Bld) 7.4 % 0-10 [facility] Neutrophils (Bld) [#/Vol] 3.4 10*3/uL 2.0-7.7 [facility] Neutrophils/100 WBC (Bld) 53.9 % 47-70 [facility] Potassium [Moles/Vol] 3.6 mmol/L 3.5-5.1 [facility] Sodium [Moles/Vol] 138 mmol/L 136-145 [facility] WBC (Bld) [#/Vol] 6.3 10*3/uL 4.4-11.0 [facility] Bilirubin Test strip Ql (U)O rdered By: Carlos Willams on 06-14-2023 Bilirubin Ql (U) Negative Negative [facility] Determination of erythrocyte mean corpuscular volume (MCV)Ordered By: Carlos Willams on 06-14-2023 MCV (RBC) [Entitic vol] 94.6 fL 81-99 [facility] Erythrocyte distribution wid th ratioOrdered By: Carlos Willams on 06-14-2023 Erythrocyte distribution width (RBC) [Ratio] 13.2 % 11.6-14.6 [facility] Erythrocyte distribution wid th standard deviationOrdered By: Carlos Willams on 06-14-2023 Erythrocyte distribution width (RBC) [Entitic vol] 46.1 fL 35.1-43.9 [facility] Hematocrit Auto (Bld) [Volum e fraction]Ordered By: Carlos Willams on 06-14-2023 Hematocrit (Bld) [Volume fraction] 38.5 % 37-47 [facility] Immature granulocytes/100 WB C Auto (Bld)Ordered By: Carlos Willams on 06-14-2023 Immature granulocytes/100 WBC (Bld) 0.200 % 0.0-0.9 [facility] Comment on above: IG% - Immature Granu locytes (promyelocytes, myelocytes and metamyelocytes) > 1% indicates that a LEFT SHIFT is Present. Ketones Test strip Ql (U)Ord ered By: Carlos Willams on 06-14-2023 Ketones Ql (U) Negative Negative [facility] Laboratory - Chemistry and C hemistry - challengeOrdered By: Carlos Willams on 06-14-2023 CO2 [Moles/Vol] 25.0 mmol/L 21.0-32.0 [facility] Urea nitrogen/Creatinine [Mass ratio] 19.5 mg/mg 10-20 [facility] Laboratory - Hematology and Cell countsOrdered By: Carlos Willams on 06-14-2023 MCH (RBC) [Entitic mass] 32.2 pg 27.0-32.0 [facility] MCHC (RBC) [Mass/Vol] 34.0 g/dL 32-36 [facility] Nucleated RBC/100 WBC (Bld) [Ratio] 0 % 0-5 [facility] Platelets (Bld) [#/Vol] 247 10*3/uL 150-450 [facility] Mucus LM Ql (Urine sed)Order ed By: Carlos Willams on 06-14-2023 Mucus Ql (Urine sed) 0 SEEN /hpf [facility] Nitrite Test strip Ql (U)Ord ered By: Carlos Willams on 06-14-2023 Nitrite Ql (U) Negative Negative [facility] No Panel InformationOrdered By: Carlos Willams on 06-14-2023 Urine RBC 25-50 SEEN /hpf 0-5 [facility] Estimated Creatinine Clearance Calc 112.69 ml/min [facility] Estimated GFR (MDRD) Amer 104 mL/min >60 [facility] Comment on above: GFR Calc Estimated GFR (MDRD) Non-Af Amer 86 mL/min >60 [facility] Comment on above: Non- GFR Calc Platelet mean volume Evaristo-Ec ker (Bld) [Entitic vol]Ordered By: Carlos Willams on 06-14-2023 Platelet mean volume (Bld) [Entitic vol] 10.4 fL 6.2-12.0 [facility] Protein Test strip Ql (U)Ord ered By: Carlos Willams on 06-14-2023 Protein Ql (U) 30 mg/dl Negative [facility] RBC Auto (Bld) [#/Vol]Ordere d By: Carlos Willams on 06-14-2023 RBC (Bld) [#/Vol] 4.07 10*6/uL 4.2-5.4 [facility] Serum or plasma calcium cynthia urement (mass/volume)Ordered By: Carlos Willams on 06-14-2023 Calcium [Mass/Vol] 9.1 mg/dL 8.5-10.1 [facility] Serum or plasma choriogonado tropin detectionOrdered By: Carlos Willams on 06-14-2023 HCG ( test) Ql Negative [facility] Comment on above: TEST is *P OSITIVE*CRITICAL VALUE VERIFIED. CALLED TO [employer]202006/14/23 1122 [address] Oscar.RESULTS READ BACK BY SAME . Serum or plasma creatinine m easurement (mass/volume)Ordered By: Carlos Willams on 06-14-2023 Creatinine [Mass/Vol] 0.77 mg/dL 0.55-1.02 [facility] Comment on above: The validity of the calculated GFR & GFRAA in patients over 70 years has not been determined. Clinical correlation is essential. Serum or plasma urea nitroge n measurement (mass/volume)Ordered By: Carlos Willams on 06-14-2023 Urea nitrogen [Mass/Vol] 15 mg/dL 7-18 [facility] Squamous epithelial cells de tection in urine sediment by light microscopyOrdered By: Carlos Willams on 06-14-2023 Epithelial cells.squamous LM Ql (Urine sed) 0-5 SEEN /hpf 5-10 [facility] Thin prep Papanicolaou smear with manual screeningOrdered By: Carlos Willams on 06-14-2023 Thin prep Papanicolaou smear with manual screening 7 5-15 [facility] Urine blood detectionOrdered By: Carlos Willams on 06-14-2023 RBC Ql (U) 250 /ul Negative [facility] Urine clarityOrdered By: Lisa Willams on 06-14-2023 Clarity (U) Sl. Cloudy Clear [facility] Urine color determinationOrd ered By: Carlos Willams on 06-14-2023 Color (U) Yellow Yellow [facility] Urine glucose detectionOrder ed By: Carlos Willams on 06-14-2023 Glucose Ql (U) Normal mg/dl Normal [facility] Urine leukocyte esterase det ection by dipstickOrdered By: Carlos Willams on 06-14-2023 Leukocyte esterase Test strip Ql (U) 100 /ul Negative [facility] Urine pHOrdered By: Carlos omalley on 06-14-2023 pH (U) 5.0 [pH] 5.0 - 8.0 [facility] Urine sediment bacteria coun t by microscopy (number/high power field)Ordered By: Carlos Willams on 06-14-2023 Bacteria LM.HPF (Urine sed) [#/Area] 1 /[HPF] None Seen [facility] Urine specific gravity measu rementOrdered By: Carlos Willams on 06-14-2023 Specific gravity (U) [Rel density] 1.025 1.002-1.030 [facility] Urine urobilinogen measureme ntOrdered By: Carlos Willams on 06-14-2023 Urobilinogen Ql (U) 1 mg/dl Normal [facility] CT CHEST WO IVCONon 06-11-19 [facility] XR Wrist - right PA and Late ral and Obliqueon 05-26-2023 IMPRESSION: No radiographic evidence of acute osseous injury. Stable round 5 mm calcification adjacent to the ulnar styloid. Associate Professor Of Biblical Studies: PSCB Transcribe Date/Time: May 26 2023 1:50P Dictated by : DEUCE JUDD MD This examination was interpreted and the report reviewed and electronically signed by: DEUCE JUDD MD on May 26 2023 2:20PM [facility] DIVISION OF RADIOLOGY * * *Final Report* * * DATE OF EXAM: May 25 2023 5:55PM WOX 5271 - XR WRIST 3V PA/LAT/OBL RT / PROCEDURE REASON: Right wrist pain * * * * Physician Interpretation * * * * TITLE: XR WRIST 3V PA/LAT/OBL RT CLINICAL INDICATION: Wrist pain TECHNIQUE: 3 view radiographic study of the right wrist COMPARISON: Radiograph dated March 31, 2022 FINDINGS: No acute fracture or dislocation identified. Stable round 5 mm calcification adjacent to the ulnar styloid. Mild first carpal metacarpal joint degenerative changes with hypertrophic change DIVISION OF RADIOLOGY Provider, Kortney Garcia - 05/26/2023 * * *Final Report* * * DATE OF EXAM: May 25 2023 5:55PM WOX 5271 - XR WRIST 3V PA/LAT/OBL RT / PROCEDURE REASON: Right wrist pain * * * * Physician Interpretation * * * * TITLE: XR WRIST 3V PA/LAT/OBL RT CLINICAL INDICATION: Wrist pain TECHNIQUE: 3 view radiographic study of the right wrist COMPARISON: Radiograph dated March 31, 2022 FINDINGS: No acute fracture or dislocation identified. Stable round 5 mm calcification adjacent to the ulnar styloid. Mild first carpal metacarpal joint degenerative changes with hypertrophic change IMPRESSION IMPRESSION: No radiographic evidence of acute osseous injury. Stable round 5 mm calcification adjacent to the ulnar styloid. Associate Professor Of Biblical Studies: [facility] Transcribe Date/Time: May 26 2023 1:50P Dictated by : DEUCE JUDD MD This examination was interpreted and the report reviewed and electronically signed by: DEUCE JUDD MD on May 26 2023 2:20PM EST [facility] XR Wrist - right PA and Late ral and ObliqueOrdered By: [facility] Provider on 05-26-2023 [facility] XR Wrist - right PA and Late ral and Obliqueon 05-25-2023 Radiology Study observation (narrative) [facility] XR Foot - right AP and Later al and obliqueon 09-21-2022 IMPRESSION: Acute fifth proximal phalanx fracture. Associate Professor Of Biblical Studies: [facility] Transcribe Date/Time: Sep 21 2022 10:11A Dictated by : DEUCE JUDD MD This examination was interpreted and the report reviewed and electronically signed by: DEUCE JUDD MD on Sep 21 2022 10:12AM [facility] DIVISION OF RADIOLOGY * * *Final Report* * * DATE OF EXAM: Sep 21 2022 9:53AM WOX 5337 - XR FOOT 3V AP/LAT/OBL RT / PROCEDURE REASON: multiple diagnoses * * * * Physician Interpretation * * * * TITLE: XR FOOT 3V AP/LAT/OBL RT CLINICAL INDICATION: Foot injury. TECHNIQUE: 3 view radiographic study of the right foot COMPARISON: None FINDINGS: There is an acute, vertical oblique nondisplaced fracture of the fifth proximal phalanx, best seen on the oblique film. Joint spaces preserved. Small dorsal calcaneal enthesophyte. DIVISION OF RADIOLOGY Provider, Kortney Garcia - 09/21/2022 * * *Final Report* * * DATE OF EXAM: Sep 21 2022 9:53AM WOX 5337 - XR FOOT 3V AP/LAT/OBL RT / PROCEDURE REASON: multiple diagnoses * * * * Physician Interpretation * * * * TITLE: XR FOOT 3V AP/LAT/OBL RT CLINICAL INDICATION: Foot injury. TECHNIQUE: 3 view radiographic study of the right foot COMPARISON: None FINDINGS: There is an acute, vertical oblique nondisplaced fracture of the fifth proximal phalanx, best seen on the oblique film. Joint spaces preserved. Small dorsal calcaneal enthesophyte. IMPRESSION IMPRESSION: Acute fifth proximal phalanx fracture. Associate Professor Of Biblical Studies: P[employer] Transcribe Date/Time: Sep 21 2022 10:11A Dictated by : DEUCE JUDD MD This examination was interpreted and the report reviewed and electronically signed by: DEUCE JUDD MD on Sep 21 2022 10:12AM EST [facility] Radiology Study observation (narrative) [facility] XR Foot - right AP and Later al and obliqueOrdered By: [facility]cf Provider on 09-21-[address] [facility] [address] PULMONARY ARTERIESon 07-08 CT PULMONARY ARTERIES EXAMINATION: CT PULMONARY ARTERIES HISTORY: ORDERING SYSTEM PROVIDED HISTORY: Pulmonary embolism (PE) suspected, positive D-dimer, TECHNOLOGIST PROVIDED HISTORY: Illness/Other Reason for exam: Pulmonary embolism (PE) suspected, positive D-dimer Encounter Type: Initial Additional signs and symptoms: cp ORDERING SYSTEM PROVIDED DIAGNOSIS CODES: COMPARISON: None. TECHNIQUE: CT angiography of the pulmonary arteries following the administration of intravenous contrast. Coronal and sagittal MIP images were performed. Dose reduction techniques were achieved by using automated exposure control and/or adjustment of mA and/or kV according to patient size and/or use of iterative reconstruction technique. CONTRAST: IOPAMIDOL 370 MG IODINE/ML (76 %) INTRAVENOUS SOLUTION - 75 mL, LOWER NECK No significant abnormality. CHEST GREAT VESSELS: Adequate opacification of the pulmonary arteries. No pulmonary embolism identified. Normal caliber main pulmonary artery. Nonaneurysmal thoracic aorta. No aortic dissection. LYMPH NODES AND MEDIASTINUM: No adenopathy. Normal esophagus. HEART AND PERICARDIUM: Normal sized heart. No coronary artery calcifications. No pericardial effusion. AIRWAYS, LUNGS AND PLEURA: Patent central airways. Moderate diffuse patchy ground-glass opacities. No suspicious pulmonary nodules. No pleural effusion or pneumothorax. UPPER ABDOMEN No significant abnormality. MSK SOFT TISSUES: Unremarkable soft tissues. BONES: No acute osseous abnormality or suspicious lesion. TYSON: (Series:Image) IMPRESSION: 1. No pulmonary embolism. 2. Diffuse patchy bilateral ground-glass opacities most compatible with atypical pneumonia or other infectious/inflammatory process. Workstation ID: [id number] Dictated by: XOCHITL ALVAREZ on [facility] Jul 25, 2022 11:09:32 AM EDT Transcribed by: XOCHITL ALVAREZ on [facility] Jul 25, 2022 11:09:32 AM EDT Finalized by: XOCHITL ALVAREZ on [facility] Jul 25, 2022 11:09:32 AM EDT [facility] Comment on above: Order Comment: Injur y/Trauma or Illness?:Illness/Other How long have you had these symptoms (acute/chronic)?:Acute Reason for exam?:Pulmonary embolism (PE) suspected, positive D-dimer Type of Exam?:Initial Additional signs and symptoms?:cp XR CHEST PA/APon 07-25-2022 XR CHEST PA/AP EXAMINATION: XR CHEST PA/AP 07/25/2022 9:06 am HISTORY: ORDERING SYSTEM PROVIDED HISTORY: cp, TECHNOLOGIST PROVIDED HISTORY: Illness/Other Reason for exam: cp Cancer History: n Surgery, RadiationHistory: n Encounter Type: Initial Additional signs and symptoms: cough ORDERING SYSTEM PROVIDED DIAGNOSIS CODES: COMPARISON: None FINDINGS: Heart and vascularity are unremarkable. Lungs are free of focal infiltrates. No effusions are noted. Patient is rotated to the left on today's exam. IMPRESSION: No acute heart or lung disease identified. Workstation ID: [id number] Dictated by: WOLF EDWARDS on [facility] Jul 25, 2022 9:29:16 AM EDT Transcribed by: WOLF EDWARDS on [facility] Jul 25, 2022 9:29:16 AM EDT Finalized by: WOLF EDWARDS on [facility] Jul 25, 2022 9:29:16 AM EDT [facility] Comment on above: Order Comment: Injur y/Trauma or Illness?:Illness/Other How long have you had these symptoms (acute/chronic)?:Acute Reason for exam?:cp History of cancer?:n Surgeries, chemotherapy, or radiation?:n Type of Exam?:Initial Additional signs and symptoms?:cough No Panel Informationon 03-31 IMPRESSION: 1. No radiographic evidence of acute osseous injury. 2. Corticated ossicle versus rounded soft tissue calcification adjacent to the distal ulna. Associate Professor Of Biblical Studies: [employer] Transcribe Date/Time: Mar 31 2022 3:21P Dictated by : DEUCE JUDD MD This examination was interpreted and the report reviewed and electronically signed by: DEUCE JUDD MD on Mar 31 2022 3:23PM [facility] DIVISION OF RADIOLOGY Radiology Study observation (narrative) [facility] No Panel InformationOrdered By: [facility]cf Provider on 03-31-2022 [facility] XR Hand - right PA and Later al and Obliqueon 03-31-2022 * * *Final Report* * * DATE OF EXAM: Mar 31 2022 3:00PM WOX 5346 - XR HAND 3V PA/LAT/OBL RT / PROCEDURE REASON: Injury of right upper extremity, initial encounter * * * * Physician Interpretation * * * * CLINICAL INDICATION: Pain TECHNIQUE: 4 view radiographic study of the right wrist and 3 view radiographic study of the right hand COMPARISON: None FINDINGS: No acute fracture or dislocation identified. Corticated ossicle or round soft tissue calcification adjacent to the distal ulna. Joint spaces preserved. DIVISION OF RADIOLOGY Provider, [facility] - 03/31/2022 * * *Final Report* * * DATE OF EXAM: Mar 31 2022 3:00PM WOX 5346 - XR HAND 3V PA/LAT/OBL RT / PROCEDURE REASON: Injury of right upper extremity, initial encounter * * * * Physician Interpretation * * * * CLINICAL INDICATION: Pain TECHNIQUE: 4 view radiographic study of the right wrist and 3 view radiographic study of the right hand COMPARISON: None FINDINGS: No acute fracture or dislocation identified. Corticated ossicle or round soft tissue calcification adjacent to the distal ulna. Joint spaces preserved. IMPRESSION IMPRESSION: 1. No radiographic evidence of acute osseous injury. 2. Corticated ossicle versus rounded soft tissue calcification adjacent to the distal ulna. Associate Professor Of Biblical Studies: [employer] Transcribe Date/Time: Mar 31 2022 3:21P Dictated by : DEUCE JUDD MD This examination was interpreted and the report reviewed and electronically signed by: DEUCE JUDD MD on Mar 31 2022 3:23PM EST [facility] XR Wrist - right 4 Viewson 1 05-31-2021 * * *Final Report* * * DATE OF EXAM: Mar 31 2022 3:00PM WOX 5273 - XR WRIST 4V PA/LAT/OBL/SCAPH RT / PROCEDURE REASON: Injury of right upper extremity, initial encounter * * * * Physician Interpretation * * * * CLINICAL INDICATION: Pain TECHNIQUE: 4 view radiographic study of the right wrist and 3 view radiographic study of the right hand COMPARISON: None FINDINGS: No acute fracture or dislocation identified. Corticated ossicle or round soft tissue calcification adjacent to the distal ulna. Joint spaces preserved. DIVISION OF RADIOLOGY Provider, [facility] - 03/31/2022 * * *Final Report* * * DATE OF EXAM: Mar 31 2022 3:00PM WOX 5273 - XR WRIST 4V PA/LAT/OBL/SCAPH RT / PROCEDURE REASON: Injury of right upper extremity, initial encounter * * * * Physician Interpretation * * * * CLINICAL INDICATION: Pain TECHNIQUE: 4 view radiographic study of the right wrist and 3 view radiographic study of the right hand COMPARISON: None FINDINGS: No acute fracture or dislocation identified. Corticated ossicle or round soft tissue calcification adjacent to the distal ulna. Joint spaces preserved. IMPRESSION IMPRESSION: 1. No radiographic evidence of acute osseous injury. 2. Corticated ossicle versus rounded soft tissue calcification adjacent to the distal ulna. Associate Professor Of Biblical Studies: JAZMIN Transcribe Date/Time: Mar 31 2022 3:21P Dictated by : DEUCE JUDD MD This examination was interpreted and the report reviewed and electronically signed by: DEUCE JUDD MD on Mar 31 2022 3:23PM EST [facility] CT CHEST WO IVCONon 08-08-19 Radiology Result ACTIONABLE Abnormal [facility] DELLA SCREENINGon 08-07-2021 [facility] XR Cervical spine AP and Lat eral and obliqueon 07-24-2021 IMPRESSION: Cervical spine degenerative changes with multilevel disc space narrowing and bilateral neural foraminal narrowing. Associate Professor Of Biblical Studies: JAZMIN Transcribe Date/Time: Jul 24 2021 3:07P Dictated by : ANGELA CANDELARIO MD This examination was interpreted and the report reviewed and electronically signed by: ANGELA CANDELARIO MD on Jul 24 2021 3:16PM [facility] DIVISION OF RADIOLOGY * * *Final Report* * * DATE OF EXAM: Jul 24 2021 9:49AM WOX 5311 - XR CERVICAL 4V AP/LAT/OBL / PROCEDURE REASON: DDD (degenerative disc disease), cervical * * * * Physician Interpretation * * * * EXAM TITLE: XR CERVICAL 4V AP/LAT/OBL EXAM DATE/TIME: 07/24/2021 9:49 AM COMPARISON: Cervical spine x-ray on 09/22/2018. CLINICAL INDICATION/HISTORY: Right-sided neck pain. TECHNIQUE: AP, lateral, and oblique views of the cervical spine are presented. FINDINGS: No acute fractures or subluxations are noted. C5-6 and C6-7 disc space narrowing is demonstrated. There is mild osteophyte formation. Degenerative changes involving the bilateral Luschka joints. Bilateral C5-6 and C6-7 neural foraminal narrowing is present, worse in the right C6-7 neural foramen. The prevertebral soft tissues are normal. DIVISION OF RADIOLOGY Provider, [facility] - 07/24/2021 * * *Final Report* * * DATE OF EXAM: Jul 24 2021 9:49AM WOX 5311 - XR CERVICAL 4V AP/LAT/OBL / PROCEDURE REASON: DDD (degenerative disc disease), cervical * * * * Physician Interpretation * * * * EXAM TITLE: XR CERVICAL 4V AP/LAT/OBL EXAM DATE/TIME: 07/24/2021 9:49 AM COMPARISON: Cervical spine x-ray on 09/22/2018. CLINICAL INDICATION/HISTORY: Right-sided neck pain. TECHNIQUE: AP, lateral, and oblique views of the cervical spine are presented. FINDINGS: No acute fractures or subluxations are noted. C5-6 and C6-7 disc space narrowing is demonstrated. There is mild osteophyte formation. Degenerative changes involving the bilateral Luschka joints. Bilateral C5-6 and C6-7 neural foraminal narrowing is present, worse in the right C6-7 neural foramen. The prevertebral soft tissues are normal. IMPRESSION IMPRESSION: Cervical spine degenerative changes with multilevel disc space narrowing and bilateral neural foraminal narrowing. Associate Professor Of Biblical Studies: JAZMIN Transcribe Date/Time: Jul 24 2021 3:07P Dictated by : ANGELA CANDELARIO MD This examination was interpreted and the report reviewed and electronically signed by: ANGELA CANDELARIO MD on Jul 24 2021 3:16PM EST [facility] Radiology Study observation (narrative) [facility] XR Cervical spine AP and Lat eral and obliqueOrdered By: [facility] Provider on 07-24-2021 [facility] APTTon 12-13-2017 aPTT Coag time (Bld) 23.9 s Normal 23.0-32.4 [facility] Comment on above: Result Comment: Unfr actionated Heparin Therapeutic Ranges:Standard Heparin Nomogram: 53 to 78 seconds (anti-Xa level of 0.3 to 0.7 U/ml)Low Dose/ACS Nomogram: 49 to 67 seconds (anti-Xa level of 0.2 to 0.5 U/ml)Stroke Treatment Nomogram: 49 to 67 seconds (anti-Xa level of 0.2 to 0.5 U/ml)Note: The APTT therapeutic range has been determined for the current lot of laboratory APTT reagent in use throughout the [facility]. Performed By: #### C BCDIF, PT, PTT, CMP, MG1 ####[facility] [address] [place] [phone] CBC and Differentialon 12-13 Abs Baso 0.03 k/uL Normal <0.11 [facility] Comment on above: Performed By: #### C BCDIF, PT, PTT, CMP, MG1 ####[facility] [address] Abs [place] 0.56 k/uL Normal <0.87 [facility] Comment on above: Performed By: #### C BCDIF, PT, PTT, CMP, MG1 ####[facility] [address] [place] [phone] Abs Neut 5.37 k/uL Normal 1.45-7.50 [facility] Comment on above: Performed By: #### C BCDIF, PT, PTT, CMP, MG1 ####[facility] [address] [place] [phone] Basophils/100 WBC Auto (Bld) 0.4 % Normal [facility] Comment on above: Performed By: #### C BCDIF, PT, PTT, CMP, MG1 ####[place] [address] Eosinophils Auto #/vol (Bld) 0.07 10*3/uL Normal <0.46 [facility] Comment on above: Performed By: #### C BCDIF, PT, PTT, CMP, MG1 ####[place] [address] Eosinophils/100 WBC Auto (Bld) 0.9 % Normal [facility] Comment on above: Performed By: #### C BCDIF, PT, PTT, CMP, MG1 ####[place] [address] Erythrocyte distribution width Auto Ratio (RBC) 15.6 % High 11.5-15.0 [facility] Comment on above: Performed By: #### C BCDIF, PT, PTT, CMP, MG1 ####[place] [address] Hematocrit Auto Volume Fraction (Bld) 38.5 % Normal 36.0-46.0 [facility] Comment on above: Performed By: #### C BCDIF, PT, PTT, CMP, MG1 ####[place] [address] Hemoglobin mass conc (Bld) 12.6 g/dL Normal 11.5-15.5 [facility] Comment on above: Performed By: #### C BCDIF, PT, PTT, CMP, MG1 ####[place] [address] Lymphocytes Auto #/vol (Bld) 2.10 10*3/uL Normal 1.00-4.00 [facility] Comment on above: Performed By: #### C BCDIF, PT, PTT, CMP, MG1 ####[place] [address] Lymphocytes/100 WBC Auto (Bld) 25.8 % Normal [facility] Comment on above: Performed By: #### C BCDIF, PT, PTT, CMP, MG1 ####[place] [address] MCH Auto Entitic mass (RBC) 31.3 pG Normal 26.0-34.0 [facility] Comment on above: Performed By: #### C BCDIF, PT, PTT, CMP, MG1 ####[facility] [address] [place] [address] MCHC Auto mass conc (RBC) 32.7 g/dL Normal 30.5-36.0 [facility] Comment on above: Performed By: #### C BCDIF, PT, PTT, CMP, MG1 ####[facility] [address] [place] [address] MCV Auto Entitic volume (RBC) 95.5 fL Normal 80.0-100.0 [facility] Comment on above: Performed By: #### C BCDIF, PT, PTT, CMP, MG1 ####[place] [address] Monocytes/100 WBC Auto (Bld) 6.9 % Normal [facility] Comment on above: Performed By: #### C BCDIF, PT, PTT, CMP, MG1 ####[facility] [address] [place] [address] Neutrophils/100 WBC Auto (Bld) 66.0 % Normal [facility] Comment on above: Performed By: #### C BCDIF, PT, PTT, CMP, MG1 ####[facility] [address] [place] [address] Platelet mean volume Auto Entitic volume (Bld) 10.2 fL Normal 9.0-12.7 [facility] Comment on above: Performed By: #### C BCDIF, PT, PTT, CMP, MG1 ####[facility] [address] [place] [address] Platelets Auto #/vol (Bld) 296 10*3/uL Normal 150-400 [facility] Comment on above: Performed By: #### C BCDIF, PT, PTT, CMP, MG1 ####[facility] [address] [place] [address] RBC Auto #/vol (Bld) 4.03 10*6/uL Normal 3.90-5.20 [facility] Comment on above: Performed By: #### C BCDIF, PT, PTT, CMP, MG1 ####[facility] [address] [place] [phone] WBC Auto #/vol (Bld) 8.13 10*3/uL Normal 3.70-11.00 [facility] Comment on above: Performed By: #### C BCDIF, PT, PTT, CMP, MG1 ####[facility] [address] [place] [phone] CT ABD/PEL W IVCONon 018 CT ABD/PEL W IVCON * * *Final Report* * *DATE OF EXAM: Dec 13 2017 5:31PM [facility] [place] [facility] [place] CT ABD/PEL W IVCON / REASON: Nausea, vomiting * * * * Physician Interpretation * * * * EXAMINATION: CT ABDOMEN AND PELVIS WITH IV CONTRASTCLINICAL HISTORY:TECHNIQUE: CT of the abdomen and pelvis was performed using standard technique, scanning from just above the dome of the diaphragm to the symphysis pubis.MQ: CTAP_3Contrast:IV: 150 ml of Omnipaque 300 : ml ofCT Radiation dose: Integrated Dose-length product (DLP) for this visit = 888 mGy*cm.CT Dose Reduction Employed: Automated exposure control (AEC)COMPARISON: None.RESULT:RESULT:Liver: No mass. Homogeneous texture.Biliary: No ductal dilatation is seen. Gallbladder is unremarkable.Spleen: Spleen is unremarkable.Pancreas: No mass or duct dilation.Adrenals: Adrenal glands are unremarkable.Kidneys: No mass, calculus or hydronephrosis is seen.GI tract: No bowel dilatation is seen. No evidence of obstruction. Mild diverticulosis but no evidence of diverticulitisLymph nodes: No evidence of adenopathy.Mesentery/Perito neum: No ascites or mass.Vasculature: No evidence of dilatation of the abdominal aorta.Pelvis: No mass, ascites or fluid collections.Bones/Soft Tissues: No significant findings identified.Lower thorax: Unremarkable.IMPRESSION: No acute pathologyTranscriptionist: JAZMIN Transcribe Date/Time: Dec 13 2017 5:39PDictated by : Abhishek QUACH examination was interpreted and the report reviewed and electronically signed by: DEJUAN KOEHLER DO on Dec 13 2017 5:50PM [id number] [facility] CT BRAIN WO IVCONon 12-14-[address] BRAIN WO IVCON * * *Final Report* * *DATE OF EXAM: Dec 13 2017 5:24PM [facility] [place] - CT BRAIN WO IVCON / REASON: Headache, acute, normal neuro exam * * * * Physician Interpretation * * * * EXAMINATION: CT BRAIN WO IVCONCLINICAL HISTORY: Headache, acute, normal neuro examTECHNIQUE: Serial axial images without IV contrast were obtained from the vertex to the foramen magnum.MQ: [id number]_3CT Dose-Length Product (DLP): 637 mGy*cmCT Dose Reduction Employed: No dose reduction techniques were requiredCOMPARISON: Reports only from CT brain 11/15/2006 MRI brain 11/25/2006RESULT:Post-opera tive change: None.Acute change: No evidence of an acute infarct or other acute parenchymal process.Hemorrhage: No evidence of acute intracranial hemorrhage.Mass Lesion / Mass Effect: There is no evidence of an intracranial mass or extraaxial fluid collection. No significant mass effect.Chronic change: None apparent.Parenchyma: There is no significant volume loss. The brain parenchyma is otherwise within normal limits for age.Ventricles: The ventricles are within normal limits of size and configuration for age.Paranasal sinuses and skull base: The visualized paranasal sinuses are grossly clear. The skull base and imaged soft tissues are unremarkable.IMPRESSION:No intracranial hemorrhage or other acute intracranial abnormalitiesTranscriptioni st: PSCB Transcribe Date/Time: Dec 13 2017 5:40PDictated by : Abhishek QUACH examination was interpreted and the report reviewed and electronically signed by: DEJUAN KOEHLER DO on Dec 13 2017 5:43PM [id number] [facility] Comp Metabolic Panelon 12-13 Albumin mass conc 4.2 g/dL Normal 3.9-4.9 [facility] Comment on above: Performed By: #### C BCDIF, PT, PTT, CMP, MG1 ####[facility] [address] [place] [phone] ALP enzyme act/vol 93 U/L Normal 32-117 [facility] Comment on above: Performed By: #### C BCDIF, PT, PTT, CMP, MG1 ####[facility] [address] [place] [address] ALT enzyme act/vol 10 U/L Normal 7-38 [facility] Comment on above: Performed By: #### C BCDIF, PT, PTT, CMP, MG1 ####[facility] [address] [place] [address] Anion gap 3 molar conc 15 mmol/L Normal 9-18 [facility] Comment on above: Performed By: #### C BCDIF, PT, PTT, CMP, MG1 ####[facility] [address] [place] [address] AST enzyme act/vol 12 U/L Low 13-35 [facility] Comment on above: Result Comment: Resu lts may be falsely increased due to interference by hemolysis. Suggest reorder as clinically indicated. Performed By: #### C BCDIF, PT, PTT, CMP, MG1 ####[facility] [address] [place] [address] Bilirubin mass conc mg/dL Low 0.2-1.3 [facility] Comment on above: Performed By: #### C BCDIF, PT, PTT, CMP, MG1 ####[facility] [address] [place] [address] Calcium mass conc 8.8 mg/dL Normal 8.5-10.2 [facility] Comment on above: Performed By: #### C BCDIF, PT, PTT, CMP, MG1 ####[facility] [address] [place] [address] Chloride molar conc 106 mmol/L High 97-105 [facility] Comment on above: Performed By: #### C BCDIF, PT, PTT, CMP, MG1 ####[facility] [address] [place] [address] CO2 molar conc 21 mmol/L Low 22-30 [facility] Comment on above: Performed By: #### C BCDIF, PT, PTT, CMP, MG1 ####[facility] [address] [place] [address] Creatinine mass conc 0.68 mg/dL Normal 0.58-0.96 [facility] Comment on above: Performed By: #### C BCDIF, PT, PTT, CMP, MG1 ####[facility] [address] eGFR- Amer. >60 Normal [facility] Comment on above: Performed By: #### C BCDIF, PT, PTT, CMP, MG1 ####[facility] [address] GFR/1.73 sq M predicted among non-blacks MDRD vol rate/area (S/P/Bld) mL/min/{1.73_m2} Normal [facility] Comment on above: Result Comment: eGFR (Estimated GFR) Units of measure: mL/min/1.73 meters squaredeGFR is derived from the reexpressed MDRD Study equation using the following parameters: serum creatinine, age, gender and race. The creatinine assay has been calibrated to be traceable to IDMS.An eGFR <60 mL/min/1.73m2 for >3 months is consistent with chronic kidney disease. Refer to KDOQI guidelines for clinical interpretation.In patients with unstable renal function, e.g. those with acute kidney injury, the eGFR may not accurately reflect actual GFR. Performed By: #### C BCDIF, PT, PTT, CMP, MG1 ####[facility] [address] [place] [address] Glucose mass conc 102 mg/dL High 74-99 [facility] Comment on above: Result Comment: The [place] [employer] (ADA) provides guidance for cutoff values for fasting glucose and random glucose. The ADA defines fasting as no caloric intake for at least 8 hours. Fasting plasma glucose results between 100 to 125 mg/dL indicate increased risk for diabetes (prediabetes).Fasting plasma glucose results greater than or equal to 126 mg/dL meet the criteria for diagnosis of diabetes. In the absence of unequivocal hyperglycemia, results should be confirmed by repeat testing. In a patient with classic symptoms of hyperglycemia or hyperglycemic crisis, random plasma glucose results greater than or equal to 200 mg/dL meet the criteria for diagnosis of diabetes.Reference: Standards of Medical Care in Diabetes 2016, [place] [employer]. Diabetes Care. 2016.39(Suppl 1). Performed By: #### C BCDIF, PT, PTT, CMP, MG1 ####[facility] [address] [place] [phone] Potassium molar conc 3.5 mmol/L Low 3.7-5.1 [facility] Comment on above: Performed By: #### C BCDIF, PT, PTT, CMP, MG1 ####[facility] [address] [place] [phone] Protein mass conc 7.0 g/dL Normal 6.3-8.0 [facility] Comment on above: Performed By: #### C BCDIF, PT, PTT, CMP, MG1 ####[facility] [address] [place] [phone] Sodium molar conc 142 mmol/L Normal 136-144 [facility] Comment on above: Performed By: #### C BCDIF, PT, PTT, CMP, MG1 ####[facility] [address] [place] [phone] Urea nitrogen mass conc 15 mg/dL Normal 7-21 [facility] Comment on above: Performed By: #### C BCDIF, PT, PTT, CMP, MG1 ####[facility] [address] [place] [phone] ED NOTEon 12-13-2017 ED NOTE HNO ID: [id number] thor: Laron Delgado (Medic)Service: Emergency MedicineAuthor Type: Online Marketer and TechnicianType: ED NotesFiled: 12/16/2017 8:02 AMNote Text:Emergency Services: ED Call Back QuestionnaireSERVICE DATE: 12/13/2017Are you feeling better? YesAny questions about discharge instructions and follow-up care? NoWere you able to make a follow up appointment? No, referred to appointmenthotlineDo you have any further questions? NoIs there anything that we could have done differently to improve your EDvisit? NoSIGNATURE: Laron Delgado PATIENT NAME: Nabor HerreraDATE: December 16, 2017 : 8:02 AM Normal [facility] ED NOTE HNO ID: [id number] thor: CITLALLI Cary Rnervice: (none)Author Type: Registered NurseType: ED NotesFiled: 12/13/2017 7:00 PMNote Text: Pt was discharged home Po fluids were encouraged and the pt wasambulatory with dischargeSister at the bedside [facility] ED NOTE HNO ID: [id number] Author: Kamala ContrerasRn) CLAUDIA Morales Service: (none) Author Type: Registered Nurse Type: ED Notes Filed: 12/13/2017 6:36 PM Note Text: Shane stanton rounds and new orders are received [facility] ED NOTE HNO ID: [id number] thor: Kamala ContrerasRn) Mitra Moralesice: (none)Author Type: Registered NurseType: ED NotesFiled: 12/13/2017 6:05 PMNote Text: Ice applied to the pts left wrist After her iv was discontinued Slightswelling noted Her sister is at the bedside [facility] ED NOTE HNO ID: [id number] Author: Kamala ContrerasRn) CLAUDIA Morales Service: (none) Author Type: Registered Nurse Type: ED Notes Filed: 12/13/2017 4:56 PM Note Text: Pt is resting her sister is bedside No further diarrhea no emesis has been noted [facility] ED NOTE HNO ID: [id number] thor: aBmbi ContrerasRn) Mitra Canalesice: NursingAuthor Type: Registered NurseType: ED NotesFiled: 12/13/2017 3:37 PMNote Text:Patient presents with neck pain, nausea, and vomiting, diarrhea, headachex 2-3 weeks. Went to her primary today and he wanted her to have a CTscan and MRI. [facility] ED PROV NOTEon 12-13-2017 Protein mass conc HNO ID: [id number] thor: Lisha Esposito (Pa): (none)Author Type: Physician AssistantType: ED Provider NotesFiled: 12/13/2017 7:22 PMNote Text:ED Provider NotePatient Name: Nabor HerreraMRN: [id number] DATE: 12/13/17HistoryPatient presents with:Nausea AND Mtjqykkj48-ommy-vxx female with a history of schizoaffective disorder, pulmonaryembolism, DVT, migraines, and marijuana use presents to the emergencydepartment complaining of nausea, vomiting, diarrhea, abdominal pain, andheadache for the past 3 weeks. Patient states she has chronic migraines,however the headache she has now is worse than her normal migraines. Itdoes feel similar to her prior migraines. She describes it as a throbbingand sharp pain on the right side of her head that goes down to the back ofher head. She also has right-sided neck pain. This is all been presentfor the past 3 weeks. She also developed sharp abdominal pain 3 weeksago. This is mostly located in her right upper quadrant. She states itcomes and goes. She has had multiple episodes of diarrhea and nausea andvomiting since then. She is unable tolerate oral intake. She also admitsto generalized weakness. Denies fever, chills, constipation,lightheadednes s, dizziness, difficulty ambulating, confusion, speechdifficulty, chest pain, shortness breath, palpitations, rashes. Pt has hada hysterectomy.PAST MEDICAL HISTORYDiagnosis Date- Bipolar 1 disorder ([facility]) sees psych at [facility]- DVT (deep venous thrombosis) ([facility]) 2006- Marijuana use- Migraine with aura- PE (pulmonary embolism) 2006- PTSD (post-traumatic stress disorder) sees psych at [facility]- Schizoaffective disorder ([facility]) sees psych at [facility]- Urinary tract infection, site not specified 2004PAST SURGICAL HISTORYProcedure Laterality Date- DELIVERY ONLY x 3 , low cervical- LIGATE FALLOPIAN TUBE 2001 Tubal ligation- TOTAL ABDOM HYSTERECTOMY Hysterectomy, GURPREET Dr Brito HISTORYProblem Relation Age of Onset- Psychiatry Mother- Hypertension Father- Diabetes Father- Emphysema Paternal Grandfather- Breast Cancer Maternal Grandmother- Cancer Paternal Grandmother lung- Thyroid Sister- Psychiatry Sister 2 sistersSocial HistorySocial History Main Topics- Smoking status: Current Every Day Smoker Packs/day: 0.50 Years: 14.00 Types: Cigarettes- Smokeless tobacco: Never Used- Alcohol use No- Drug use: No Comment: occasional marijuana- Sexual activity: Yes control/ protection: SurgicalALLERGIESAllergen Reactions- Penicillins- Vicodin [Hydrocodon* GI Upset States that was a reaction with compazine not an allergy.- Vidaylin Vitamins [* GI UpsetReview of SystemsConstitutional: Positive for appetite change. Negative for activitychange, chills, fatigue and fever.HENT: Negative for congestion, rhinorrhea, sneezing and sore throat.Eyes: Negative for photophobia and visual disturbance.Respiratory: Negative for cough, shortness of breath and wheezing.Cardiovascular: Negative for chest pain and palpitations.Gastrointestin al: Positive for abdominal pain, diarrhea, nausea andvomiting. Negative for blood in stool and constipation.Genitourinary: Negative for decreased urine volume, difficulty urinating,dysuria, flank pain, frequency, hematuria, urgency, vaginal bleeding andvaginal discharge.Musculoskeletal: Negative for back pain, gait problem, neck pain and neckstiffness.Skin: Negative for rash.Neurological: Negative for dizziness, syncope, speech difficulty,light-headedness and headaches.Physical ExamBP 123/91 Pulse 98 Temp (Src) 98 (Oral) Resp 18 Ht 5' 7 (1.70m) Wt 209 lb (94.8kg) SpO2 100% LMP 10/13/2006 BMI 32.73 kg/(m2).Physical ExamConstitutional: She is oriented to person, place, and time. She appearswell-developed and well-nourished.Pt in moderate distress due to pain.HENT:Head: Normocephalic and atraumatic.Mouth/Throat: Oropharynx is clear and moist. No oropharyngeal exudate.Eyes: Conjunctivae and EOM are normal. Pupils are equal, round, andreactive to light. Right eye exhibits no discharge. Left eye exhibits nodischarge. No scleral icterus.Neck: Normal range of motion and full passive range of motion withoutpain. Neck supple. No neck rigidity. No Brudzinski's sign and no Kernig'ssign noted.Excoriations noted over the right cervical or spinal region. Patientstates she has been scratching and rubbing her neck due to the pain.Tenderness to palpation of right cervical paraspinal muscles.Cardiovascular: Normal rate, regular rhythm, normal heart sounds andintact distal pulses.No murmur heard.Pulmonary/Chest: Effort normal and breath sounds normal.Abdominal: Soft.Mild tenderness to palpation in RUQ. No rebound, guarding, or rigidity. NoCVA tenderness. Not distended. No obvious hernias.Musculoskeletal: Normal range of motion. She exhibits no edema.Neurological: She is alert and oriented to person, place, and time.Face symmetric, tongue midline; PERRLA b/l; speech is clear and in fullunbroken sentences; normal finger nose testing; rapid alternatingmovements without dysdiadochokinesia; normal heel carroll down; no ataxianoted with ambulation; no pronator drift noted; strength +5/5 and equallbilaterally; sensation intact and equal bilaterally.Skin: Skin is warm and dry. No rash noted. She is not diaphoretic. Noerythema.Nursing note and vitals reviewed.Diagnostic TestingED Labs Ordered and Reviewed - No data to displayProceduresED Course / Clinical ImpressionClinical Impressions as of Dec 13ain of upper abdomenHeadache disorderHypokalemiaMDM / Disposition / Plan 42-year-old female with a history of schizoaffective disorder, pulmonaryembolism, DVT, migraines, and marijuana use presents to the emergencydepartment complaining of nausea, vomiting, diarrhea, abdominal pain, andheadache for the past 3 weeks. Patient is symptomatically stable,afebrile, and in some distress due to pain. Pertinent physical examfindings include a nonfocal neurological exam, and mildly tender rightupper quadrant and epigastric region.Differentials include but are not limited to migraine headache, tensionheadache, cervical strain, trapezius strain, cervical facet syndrome,gastritis, cholecystitis or cholelithiasis. Patient was given morphine,IV fluids, and Zofran. She did have significant improvement of herabdominal pain and mild improvement of her headache. Urinalysis withinnormal limits. CMP with mild hypokalemia. She was given by mouthpotassium replacement. Mag within normal limits. CBC within normallimits. Lipase within normal limits. CT abdomen/pelvis with no acutepathology. CT brain unremarkable. Upon reassessment, patient states prosper feels much better, however she still has a headache. It is better,but still bad. She was given subcutaneous Imitrex as well as Flexeril andBenadryl. She did have significant improvement of her headache afterthis. I did offer further evaluation such as MRI and/or CTA or admission,the patient stated she felt like she would be okay to go home. I willrefer her to neurology for further evaluation of headaches. I gave her Rxfor omeprazole for suspected gastritis. I also gave her Rx for oxycodone,Flexeril, and Tylenol for headache. Advised her follow-up with her PCPwithin 2-3 days regarding her abdominal pain and headache. I gave her aphone number to call and make an appointment with neurology headache.She'll follow up with them within 1-2 weeks. She was given very strictreturn precautions. Patient was amenable to this plan. Discharged instable and improved condition.1. Take omeprazole as prescribed for abdominal pain, thought to be causedby gastritis. Take Zofran for nausea.2. Take oxycodone, Flexeril, and Tylenol for headache.3. Follow-up with neurology headache at [facility] within 1 week.4. Follow-up with your primary care provider within 2-3 days.5. Return to the emergency department for new or worsening signs orsymptoms including but not limited to worsening headache, vomiting, fever,confusion.The patient was DISCHARGED: Counseled patient regarding lab results ANDradiology results AND suspected diagnosis AND need for follow-up. Dischargedhome with verbal and written instructions. They were instructed to returnas needed for persistent or worsening symptoms or any new concerns.Given a prescription for the following medication(s): Omeprazole,oxycodone, Zofran, FlexerilCondition at time of disposition: improved and stableSIGNATURE: Aundrea Esposito (Romy) ROMY Betancourt12/13/17 192 Normal [facility] Lipaseon 12-13-2017 Lipase enzyme act/vol 18 U/L Normal 16-61 [facility] Comment on above: Performed By: #### L IPA ####[facility] [id number] [place] [phone] Magnesiumon 12-13-2017 Magnesium mass conc 2.1 mg/dL Normal 1.7-2.3 [facility] Comment on above: Performed By: #### C BCDIF, PT, PTT, CMP, MG1 ####[facility] [id number] [place] [phone] Protimeon 12-13-2017 INR Coag RelTime (Bld) 1.0 {INR} Normal 0.9-1.3 [facility] Comment on above: Result Comment: Khushbu min K Antagonist (VKA) Therapeutic Range: INR 2 to 3 (Target INR of 2.5)Note: For patients treated with VKA drugs, such as warfarin, the [employer] 2012 Guideline recommends a therapeutic INR range of 2 to 3 (target INR of 2.5). This recommendation includes high-risk patients with antiphospholipid syndrome with previous arterial or venous thromboembolism, current-generation mechanical or bioprosthetic aortic heart valve replacement.Note: Patients with mechanical aortic valve replacement and additional risk factors for thromboembolic events (atrial fibrillation, previous thromboembolism, LV dysfunction, hypercoagulable conditions) or an older generation mechanical AVR (i.e., ball in-Cage) or any mechanical MVR should have a INR therapeutic range of 2.5 to 3.5 (target INR of 3).Niko GH, et al. Chest 2012, 141:7S-47SNishimura RA, et al. [facility] 2017, 70: 252-289 Performed By: #### C BCDIF, PT, PTT, CMP, MG1 ####[place] [address] PT Sec 10.5 sec Normal 9.7-13.0 [facility] Comment on above: Performed By: #### C BCDIF, PT, PTT, CMP, MG1 ####[facility] [id number] [place] [address] Urinalysison 12-13-2017 Bilirubin, Urine Negative Normal Negative [facility] Comment on above: Performed By: #### C BCDIF, PT, PTT, CMP, MG1 ####[place] [address] Clarity Clear Normal Clear [facility] Comment on above: Performed By: #### C BCDIF, PT, PTT, CMP, MG1 ####[facility] [address] [place] [address] Color Yellow Normal Yellow [facility] Comment on above: Performed By: #### C BCDIF, PT, PTT, CMP, MG1 ####[place] [address] Glucose Ql (U) Negative Normal Negative [facility] Comment on above: Performed By: #### C BCDIF, PT, PTT, CMP, MG1 ####[facility] [address] [place] [address] Hemoglobin/Blood,Ur Negative Normal Negative [facility] Comment on above: Performed By: #### C BCDIF, PT, PTT, CMP, MG1 ####[facility] [id number] [place] [address] Ketones Ql (U) Negative Normal Negative [facility] Comment on above: Performed By: #### C BCDIF, PT, PTT, CMP, MG1 ####[facility] [id number] [place] [address] Leukest Negative Normal Negative [facility] Comment on above: Performed By: #### C BCDIF, PT, PTT, CMP, MG1 ####[facility] [address] [place] [address] Nitrites Negative Normal Negative [facility] Comment on above: Performed By: #### C BCDIF, PT, PTT, CMP, MG1 ####[facility] [address] [place] [address] pH 6.5 Normal 5.0-8.0 [facility] Comment on above: Performed By: #### C BCDIF, PT, PTT, CMP, MG1 ####[facility] [id number] [place] [address] Protein, Urine Negative Normal Negative [facility] Comment on above: Performed By: #### C BCDIF, PT, PTT, CMP, MG1 ####[facility] [address] [place] [address] Specific [place], Ur <=1.005 Normal 1.001-1.029 [facility] Comment on above: Performed By: #### C BCDIF, PT, PTT, CMP, MG1 ####[facility] [address] [place] [address] Urobilinogen 0.2 Normal 0.2-1.0 [facility] Comment on above: Performed By: #### C BCDIF, PT, PTT, CMP, MG1 ####[facility] [id number] [place] [address] Vital Signs Date Time Vital Sign Value Performing Clinician Facility 12-06-2024 14:57-0400 Body mass index (BMI) [Ratio] 30.56 kg/m2 Alix Douglas PA-C Work Phone: [facility] 12-06-2024 14:57-0400 Body weight 91.17 kg Alix Ortizer PA-C Work Phone: [facility] 12-06-2024 14:57-0400 Diastolic blood pressure 84 mm[Hg] Alix Queener PA-C Work Phone: [facility] 12-06-2024 14:57-0400 Heart rate 73 /min Alix Ortizer PA-C Work Phone: [facility] 12-06-2024 14:57-0400 Respiratory rate 16 /min Alix Queener PA-C Work Phone: [facility] 12-06-2024 14:57-0400 SaO2% (BldA) [Mass fraction] 93 % Alix Queener PA-C Work Phone: [facility] 12-06-2024 14:57-0400 Systolic blood pressure 147 mm[Hg] Alix Ortizer PA-C Work Phone: [facility] 08-16-2024 14:26-0400 Body mass index (BMI) [Ratio] 31.66 kg/m2 Alix Queener PA-C Work Phone: [facility] 08-16-2024 14:26-0400 Body weight 94.44 kg Alix Queener PA-C Work Phone: [facility] 08-16-2024 14:26-0400 Diastolic blood pressure 78 mm[Hg] Alix Queener PA-C Work Phone: [facility] 08-16-2024 14:26-0400 Heart rate 77 /min Alix Queener PA-C Work Phone: [facility] 08-16-2024 14:26-0400 SaO2% (BldA) [Mass fraction] 99 % Alix Queener PA-C Work Phone: [facility] 08-16-2024 14:26-0400 Systolic blood pressure 136 mm[Hg] Alix Queener PA-C Work Phone: [facility] 07-19-2024 16:28-0400 Body mass index (BMI) [Ratio] 31.47 kg/m2 Dionicio Brower MD Work Phone: [facility] 07-19-2024 16:28-0400 Body weight 93.89 kg Dionicio Brower MD Work Phone: [facility] 07-19-2024 16:28-0400 Diastolic blood pressure 62 mm[Hg] Dionicio Brower MD Work Phone: [facility] 07-19-2024 16:28-0400 Heart rate 60 /min Dionicio rBower MD Work Phone: [facility] 07-19-2024 16:28-0400 SaO2% (BldA) [Mass fraction] 100 % Dionicio Brower MD Work Phone: [facility] 07-19-2024 16:28-0400 Systolic blood pressure 108 mm[Hg] Dionicio Brower MD Work Phone: [facility] 06-08-2024 13:52-0500 Body mass index (BMI) [Ratio] 30.56 kg/m2 Vani Adam MAKEUP SALES CONSULTANT.TELEGRAPH MESSENGER Work Phone: [facility] 06-08-2024 13:52-0500 Body weight 91.17 kg Vani Adam MAKEUP SALES CONSULTANT.TELEGRAPH MESSENGER Work Phone: [facility] 06-08-2024 13:52-0500 Diastolic blood pressure 72 mm[Hg] Vani Adam MAKEUP SALES CONSULTANT.TELEGRAPH MESSENGER Work Phone: [facility] 06-08-2024 13:52-0500 Heart rate 80 /min Vani Adam MAKEUP SALES CONSULTANT.TELEGRAPH MESSENGER Work Phone: [facility] 06-08-2024 13:52-0500 SaO2% (BldA) [Mass fraction] 98 % Vani Adam MAKEUP SALES CONSULTANT.TELEGRAPH MESSENGER Work Phone: [facility] 06-08-2024 13:52-0500 Systolic blood pressure 105 mm[Hg] Vani Adam MAKEUP SALES CONSULTANT.TELEGRAPH MESSENGER Work Phone: [facility] 05-24-2024 16:27-0500 Body height 172.7 cm Dionicio Brower MD Work Phone: [facility] 05-24-2024 16:27-0500 Body mass index (BMI) [Ratio] 30.41 kg/m2 Dionicio Brower MD Work Phone: [facility] 05-24-2024 16:27-0500 Body weight 90.72 kg Dionicio Brower MD Work Phone: [facility] 05-24-2024 16:27-0500 Diastolic blood pressure 83 mm[Hg] Dionicio Brower MD Work Phone: [facility] 05-24-2024 16:27-0500 Heart rate 85 /min Dionicio Brower MD Work Phone: [facility] 05-24-2024 16:27-0500 Systolic blood pressure 137 mm[Hg] Dionicio Brower MD Work Phone: [facility] 04-11-2024 14:25-0500 Diastolic blood pressure 92 mm[Hg] Bruna Haagen MAKEUP SALES CONSULTANT.TELEGRAPH MESSENGER Work Phone: [facility] 04-11-2024 14:25-0500 Heart rate 104 /min Bruna Haagen MAKEUP SALES CONSULTANT.TELEGRAPH MESSENGER Work Phone: [facility] 04-11-2024 14:25-0500 Respiratory rate 16 /min Bruna Haagen MAKEUP SALES CONSULTANT.TELEGRAPH MESSENGER Work Phone: [facility] 04-11-2024 14:25-0500 SaO2% (BldA) [Mass fraction] 97 % Bruna Haagen MAKEUP SALES CONSULTANT.TELEGRAPH MESSENGER Work Phone: [facility] 04-11-2024 14:25-0500 Systolic blood pressure 126 mm[Hg] Bruna Haagen MAKEUP SALES CONSULTANT.TELEGRAPH MESSENGER Work Phone: [facility] 04-08-2024 08:40-0500 Body mass index (BMI) [Ratio] 30.74 kg/m2 Noreen Tenorio PA-C Work Phone: [facility] 04-08-2024 08:40-0500 Body temperature 99 [degF] Noreen Athy PA-C Work Phone: [facility] 04-08-2024 08:40-0500 Body weight 91.7 kg Noreen Athy PA-C Work Phone: [facility] 04-08-2024 08:40-0500 Diastolic blood pressure 108 mm[Hg] Noreen Athy PA-C Work Phone: [facility] 04-08-2024 08:40-0500 Heart rate 110 /min Noreen Athy PA-C Work Phone: [facility] 04-08-2024 08:40-0500 Respiratory rate 20 /min Noreen Athy PA-C Work Phone: [facility] 04-08-2024 08:40-0500 SaO2% (BldA) [Mass fraction] 96 % Noreen Athy PA-C Work Phone: [facility] 04-08-2024 08:40-0500 Systolic blood pressure 174 mm[Hg] Noreen Athy PA-C Work Phone: [facility] 03-31-2024 09:27-0500 Body height 172.7 cm Dionicio Brower MD Work Phone: [facility] 03-31-2024 09:27-0500 Body mass index (BMI) [Ratio] 32.52 kg/m2 Dionicio Brower MD Work Phone: [facility] 03-31-2024 09:27-0500 Body weight 97 kg Dionicio Brower MD Work Phone: [facility] 03-31-2024 09:27-0500 Diastolic blood pressure 84 mm[Hg] Dionicio Brower MD Work Phone: [facility] 03-31-2024 09:27-0500 Heart rate 72 /min Dionicio Brower MD Work Phone: [facility] 03-31-2024 09:27-0500 SaO2% (BldA) [Mass fraction] 96 % Dionicio Brower MD Work Phone: [facility] 03-31-2024 09:27-0500 Systolic blood pressure 118 mm[Hg] Dionicio Brower MD Work Phone: [facility] 01-24-2024 13:13-0400 Diastolic blood pressure 70 mm[Hg] Bruna Haagen MAKEUP SALES CONSULTANT.TELEGRAPH MESSENGER Work Phone: [facility] 01-24-2024 13:13-0400 Heart rate 66 /min Bruna Haagen MAKEUP SALES CONSULTANT.TELEGRAPH MESSENGER Work Phone: [facility] 01-24-2024 13:13-0400 Respiratory rate 16 /min Bruna Haagen MAKEUP SALES CONSULTANT.TELEGRAPH MESSENGER Work Phone: [facility] 01-24-2024 13:13-0400 SaO2% (BldA) [Mass fraction] 98 % Bruna Haagen MAKEUP SALES CONSULTANT.TELEGRAPH MESSENGER Work Phone: [facility] 01-24-2024 13:13-0400 Systolic blood pressure 128 mm[Hg] Bruna Haagen MAKEUP SALES CONSULTANT.TELEGRAPH MESSENGER Work Phone: [facility] 10-22-2023 16:25-0400 Body height 172.7 cm Dionicio Brower MD Work Phone: [facility] 10-22-2023 16:25-0400 Body mass index (BMI) [Ratio] 30.41 kg/m2 Dionicio Brower MD Work Phone: [facility] 10-22-2023 16:25-0400 Body weight 90.72 kg Dionicio Brower MD Work Phone: [facility] 10-22-2023 16:25-0400 Diastolic blood pressure 72 mm[Hg] Dionicio Brower MD Work Phone: [facility] 10-22-2023 16:25-0400 Heart rate 102 /min Dionicio Brower MD Work Phone: [facility] 10-22-2023 16:25-0400 SaO2% (BldA) [Mass fraction] 99 % Dionicio Brower MD Work Phone: [facility] 10-22-2023 16:25-0400 Systolic blood pressure 94 mm[Hg] Dionicio Brower MD Work Phone: [facility] 10-13-2023 13:05-0400 Body mass index (BMI) [Ratio] 30.41 kg/m2 Dionicio Brower MD Work Phone: [facility] 10-13-2023 13:05-0400 Body weight 90.72 kg Dionicio Brower MD Work Phone: [facility] 10-13-2023 13:05-0400 Diastolic blood pressure 82 mm[Hg] Dionicio Brower MD Work Phone: [facility] 10-13-2023 13:05-0400 Heart rate 87 /min Dionicio Brower MD Work Phone: [facility] 10-13-2023 13:05-0400 SaO2% (BldA) [Mass fraction] 98 % Dionicio Brower MD Work Phone: [facility] 10-13-2023 13:05-0400 Systolic blood pressure 134 mm[Hg] Dionicio Brower MD Work Phone: [facility] 08-11-2023 15:51-0400 Body temperature 97.7 [degF] Dionicio Brower MD Work Phone: [facility] 08-11-2023 15:51-0400 Body weight 88.45 kg Dionicio Brower MD Work Phone: [facility] 08-11-2023 15:51-0400 Diastolic blood pressure 96 mm[Hg] Dionicio Brower MD Work Phone: [facility] 08-11-2023 15:51-0400 Heart rate 110 /min Dionicio Brower MD Work Phone: [facility] 08-11-2023 15:51-0400 Respiratory rate 22 /min Dionicio Brower MD Work Phone: [facility] 08-11-2023 15:51-0400 SaO2% (BldA) [Mass fraction] 98 % Dionicio Brower MD Work Phone: [facility] 08-11-2023 15:51-0400 Systolic blood pressure 140 mm[Hg] Dionicio Brower MD Work Phone: [facility] 06-14-2023 09:53-0500 Body height 175.26 cm [facility] 06-14-2023 09:53-0500 Body mass index (BMI) [Ratio] 30.6 kg/m2 [facility] 06-14-2023 09:53-0500 Body temperature 97.3 [degF] [facility] 06-14-2023 09:53-0500 Body weight 94.12 kg [facility] 06-14-2023 09:53-0500 Diastolic blood pressure 111 mm[Hg] [facility] 06-14-2023 09:53-0500 Heart rate 99 /min [facility] 06-14-2023 09:53-0500 Respiratory rate 16 /min [facility] 06-14-2023 09:53-0500 SaO2% (BldA) [Mass fraction] 100 % [facility] 06-14-2023 09:53-0500 Systolic blood pressure 158 mm[Hg] [facility] 06-03-2023 22:22-0500 Body temperature 96.3 [degF] [facility] 06-03-2023 22:22-0500 Diastolic blood pressure 73 mm[Hg] [facility] 06-03-2023 22:22-0500 Heart rate 92 /min [facility] 06-03-2023 22:22-0500 Respiratory rate 20 /min [facility] 06-03-2023 22:22-0500 SaO2% (BldA) [Mass fraction] 100 % [facility] 06-03-2023 22:22-0500 Systolic blood pressure 144 mm[Hg] [facility] 04-26-2023 13:54-0500 Body temperature 97.9 [degF] [employer] APRN.CNP Work Phone: [facility] 04-26-2023 13:54-0500 Body weight 94.62 kg [employer] APRN.CNP Work Phone: [facility] 04-26-2023 13:54-0500 Diastolic blood pressure 90 mm[Hg] Chico Pendlebury MAKEUP SALES CONSULTANT.TELEGRAPH MESSENGER Work Phone: [facility] 04-26-2023 13:54-0500 Heart rate 88 /min Chico Pendlebury MAKEUP SALES CONSULTANT.TELEGRAPH MESSENGER Work Phone: [facility] 04-26-2023 13:54-0500 Respiratory rate 18 /min [facility] MAKEUP SALES CONSULTANT.TELEGRAPH MESSENGER Work Phone: [facility] 04-26-2023 13:54-0500 SaO2% (BldA) [Mass fraction] 98 % [facility] MAKEUP SALES CONSULTANT.TELEGRAPH MESSENGER Work Phone: [facility] 04-26-2023 13:54-0500 Systolic blood pressure 142 mm[Hg] Chico Pendlebury MAKEUP SALES CONSULTANT.TELEGRAPH MESSENGER Work Phone: [facility] 01-06-2023 15:52-0400 Body temperature 98.49 [degF] Cole Frazier MD Work Phone: [facility] 01-06-2023 15:52-0400 Body weight 95.44 kg Cole Frazier MD Work Phone: [facility] 01-06-2023 15:52-0400 Diastolic blood pressure 80 mm[Hg] Cole Frazier MD Work Phone: [facility] 01-06-2023 15:52-0400 Heart rate 86 /min Cole Frazier MD Work Phone: [facility] 01-06-2023 15:52-0400 Respiratory rate 18 /min Cole Frazier MD Work Phone: [facility] 01-06-2023 15:52-0400 SaO2% (BldA) [Mass fraction] 100 % Cole Frazier MD Work Phone: [facility] 01-06-2023 15:52-0400 Systolic blood pressure 122 mm[Hg] Cole Frazier MD Work Phone: [facility] 04-22-2022 15:33-0500 Diastolic blood pressure 82 mm[Hg] Bruna Haagen MAKEUP SALES CONSULTANT.TELEGRAPH MESSENGER Work Phone: [facility] 04-22-2022 15:33-0500 Heart rate 82 /min Bruna Haagen MAKEUP SALES CONSULTANT.TELEGRAPH MESSENGER Work Phone: [facility] 04-22-2022 15:33-0500 Respiratory rate 18 /min Bruna Haagen MAKEUP SALES CONSULTANT.TELEGRAPH MESSENGER Work Phone: [facility] 04-22-2022 15:33-0500 SaO2% (BldA) [Mass fraction] 96 % Bruna Haagen MAKEUP SALES CONSULTANT.TELEGRAPH MESSENGER Work Phone: [facility] 04-22-2022 15:33-0500 Systolic blood pressure 114 mm[Hg] Bruna Haagen MAKEUP SALES CONSULTANT.TELEGRAPH MESSENGER Work Phone: [facility] 04-08-2022 12:56-0500 Body temperature 96.91 [degF] Callie Praisler-Wood MAKEUP SALES CONSULTANT.TELEGRAPH MESSENGER Work Phone: [facility] 04-08-2022 12:56-0500 Body weight 95.71 kg Callie Praisler-Wood MAKEUP SALES CONSULTANT.TELEGRAPH MESSENGER Work Phone: [facility] 04-08-2022 12:56-0500 Diastolic blood pressure 72 mm[Hg] Callie Praisler-Wood MAKEUP SALES CONSULTANT.TELEGRAPH MESSENGER Work Phone: [facility] 04-08-2022 12:56-0500 Heart rate 88 /min Callie Praisler-Wood MAKEUP SALES CONSULTANT.TELEGRAPH MESSENGER Work Phone: [facility] 04-08-2022 12:56-0500 Respiratory rate 16 /min Callie Praisler-Wood MAKEUP SALES CONSULTANT.TELEGRAPH MESSENGER Work Phone: [facility] 04-08-2022 12:56-0500 SaO2% (BldA) [Mass fraction] 100 % Callie Praisler-Wood MAKEUP SALES CONSULTANT.TELEGRAPH MESSENGER Work Phone: [facility] 04-08-2022 12:56-0500 Systolic blood pressure 122 mm[Hg] Callie Praisler-Wood MAKEUP SALES CONSULTANT.TELEGRAPH MESSENGER Work Phone: [facility] 03-16-2022 14:47-0500 Body temperature 97.7 [degF] Nadege Hills MAKEUP SALES CONSULTANT.TELEGRAPH MESSENGER Work Phone: [facility] 03-16-2022 14:47-0500 Body weight 92.9 kg N[place]ge [place] MAKEUP SALES CONSULTANT.TELEGRAPH MESSENGER Work Phone: [facility] 03-16-2022 14:47-0500 Diastolic blood pressure 92 mm[Hg] N[place]ge [place] MAKEUP SALES CONSULTANT.TELEGRAPH MESSENGER Work Phone: [facility] 03-16-2022 14:47-0500 Heart rate 82 /min N[place]ge [place] MAKEUP SALES CONSULTANT.TELEGRAPH MESSENGER Work Phone: [facility] 03-16-2022 14:47-0500 Respiratory rate 18 /min N[place]ge Hills MAKEUP SALES CONSULTANT.TELEGRAPH MESSENGER Work Phone: [facility] 03-16-2022 14:47-0500 SaO2% (BldA) [Mass fraction] 99 % Nadege Hills MAKEUP SALES CONSULTANT.TELEGRAPH MESSENGER Work Phone: [facility] 03-16-2022 14:47-0500 Systolic blood pressure 144 mm[Hg] Nadege Hills MAKEUP SALES CONSULTANT.TELEGRAPH MESSENGER Work Phone: [facility] 03-12-2022 17:00-0400 Body weight 92.08 kg NA Lugo PA-C Work Phone: [facility] 03-12-2022 17:00-0400 Diastolic blood pressure 74 mm[Hg] NA Lugo PA-C Work Phone: [facility] 03-12-2022 17:00-0400 Heart rate 83 /min NA Lugo PA-C Work Phone: [facility] 03-12-2022 17:00-0400 Respiratory rate 16 /min NA Lugo PA-C Work Phone: [facility] 03-12-2022 17:00-0400 SaO2% (BldA) [Mass fraction] 99 % NA Lugo PA-C Work Phone: [facility] 03-12-2022 17:00-0400 Systolic blood pressure 118 mm[Hg] NA Lugo PA-C Work Phone: [facility] 02-19-2022 16:32-0400 Body weight 92.99 kg NA Lugo PA-C Work Phone: [facility] 02-19-2022 16:32-0400 Diastolic blood pressure 68 mm[Hg] NA Lugo PA-C Work Phone: [facility] 02-19-2022 16:32-0400 Heart rate 69 /min NA Lugo PA-C Work Phone: [facility] 02-19-2022 16:32-0400 Respiratory rate 16 /min NA Lugo PA-C Work Phone: [facility] 02-19-2022 16:32-0400 SaO2% (BldA) [Mass fraction] 99 % NA Lugo PA-C Work Phone: [facility] 02-19-2022 16:32-0400 Systolic blood pressure 122 mm[Hg] NA Lugo PA-C Work Phone: [facility] 11-22-2021 13:55-0400 Body temperature 99.9 [degF] Chio Vale APRN.TELEGRAPH MESSENGER Work Phone: [facility] 11-22-2021 13:55-0400 Body weight 92.08 kg Chio Vale APRN.TELEGRAPH MESSENGER Work Phone: [facility] 11-22-2021 13:55-0400 Diastolic blood pressure 66 mm[Hg] Chio [place] APRN.TELEGRAPH MESSENGER Work Phone: [facility] 11-22-2021 13:55-0400 Heart rate 122 /min Chio [place] APRN.TELEGRAPH MESSENGER Work Phone: [facility] 11-22-2021 13:55-0400 Respiratory rate 18 /min Chio [place] APRN.TELEGRAPH MESSENGER Work Phone: [facility] 11-22-2021 13:55-0400 SaO2% (BldA) [Mass fraction] 98 % Chio Vale APRN.TELEGRAPH MESSENGER Work Phone: [facility] 11-22-2021 13:55-0400 Systolic blood pressure 120 mm[Hg] Chio [place] APRN.TELEGRAPH MESSENGER Work Phone: [facility] 09-08-2021 16:20-0400 Body weight 92.53 kg NA Lugo PA-C Work Phone: [facility] 09-08-2021 16:20-0400 Diastolic blood pressure 76 mm[Hg] NA Lugo PA-C Work Phone: [facility] 09-08-2021 16:20-0400 Heart rate 90 /min NA Lugo PA-C Work Phone: [facility] 09-08-2021 16:20-0400 Respiratory rate 16 /min NA Lugo PA-C Work Phone: [facility] 09-08-2021 16:20-0400 SaO2% (BldA) [Mass fraction] 97 % NA Lugo PA-C Work Phone: [facility] 09-08-2021 16:20-0400 Systolic blood pressure 128 mm[Hg] NA Lugo PA-C Work Phone: [facility] Encounters Encounter Date Encounter Type Care Provider Facility Start: 03-19-2025 End: 03-19-2025 ambulatory [facility] Facility:[facility] Start: 03-17-2025 End: 03-17-2025 Emergency department patient visit [facility] Facility:[facility] Start: 02-13-2025 End: 02-13-2025 ambulatory [facility] Facility:[facility] Start: 02-05-2025 End: 02-05-2025 ambulatory [facility] Facility:[facility] Start: 02-02-2025 End: 02-02-2025 ambulatory [facility] Facility:[facility] Start: 12-07-2024 End: 12-20-2024 Telephone encounter Alix Douglas PA-C Work Phone: Neurology Comment on above: PAs submitted Start: 12-06-2024 End: 12-06-2024 Patient encounter procedure Alix STANTON-C Work Phone: Neurology Comment on above: Migraine without aur a and with status migrainosus, not intractable (Primary Dx); Migraine with aura, not intractable, without status migrainosus Start: 12-06-2024 End: 12-06-2024 ambulatory DIONICIO BROWER Facility:[facility] Start: 11-22-2024 End: 11-22-2024 Refill Dionicio Brower MD Work Phone: [facility] [place] Comment on above: Refill Request Start: 11-12-2024 End: 11-13-2024 Refill Dionicio Brower MD Work Phone: [facility] [place] Comment on above: Refill Request Start: 09-16-2024 End: 09-25-2024 ambulatory Alix Douglas PA-C Work Phone: Neurology Comment on above: Ajovrobbie Start: 09-14-2024 End: 09-14-2024 ambulatory Dionicio Brower MD Work Phone: [facility] [place] Comment on above: Meds Start: 09-12-2024 End: 09-12-2024 ambulatory Dionicio Brower MD Work Phone: [facility] [place] Comment on above: Veronique Start: 09-11-2024 End: 09-11-2024 Emergency department patient visit Dionicio Inocente Facility:[facility] Start: 09-04-2024 End: 09-07-2024 ambulatory Alix STANTON-Sony Work Phone: Neurology Comment on above: Meds Start: 08-16-2024 End: 08-16-2024 Patient encounter procedure Alix STANTON-C Work Phone: Neurology Comment on above: Migraine without aur a and with status migrainosus, not intractable (Primary Dx); ANNALISA (obstructive sleep apnea) Start: 08-16-2024 End: 08-16-2024 ambulatory DIONICIO BROWER Facility:[facility] Start: 08-09-2024 End: 08-09-2024 Refill Dionicio Brower MD Work Phone: [facility] [place] Comment on above: Refill Request Start: 07-19-2024 End: 07-19-2024 Patient encounter procedure Dionicio Brower MD Work Phone: [facility] [place] Comment on above: Migraine without aur a and with status migrainosus, not intractable (Primary Dx); Bipolar 1 disorder (HCC); Schizoaffective disorder, bipolar type (HCC); Migraine with aura, not intractable, without status migrainosus Start: 07-19-2024 End: 07-19-2024 ambulatory DIONICIO BROWER Facility:[facility] Start: 07-11-2024 End: 08-11-2024 ambulatory Dionicio Brower MD Work Phone: [facility] Start: 06-08-2024 End: 06-08-2024 ambulatory DIONICIO BROWER Facility:[facility] Start: 06-08-2024 End: 06-08-2024 Patient encounter procedure Vani Mccann APRN.TELEGRAPH MESSENGER Work Phone: General Surgery Comment on above: Gastroesophageal ref lux disease, unspecified whether esophagitis present (Primary Dx); Positive colorectal cancer screening using Cologuard test Start: 06-02-2024 End: 06-06-2024 Telephone encounter Dionicio Brower MD Work Phone: [facility] [place] Comment on above: Results (cologuard) Start: 05-24-2024 End: 05-24-2024 Patient encounter procedure Dionicio Brower MD Work Phone: [facility] [place] Comment on above: Anxiety (Primary Dx) ; Migraine without aura and with status migrainosus, not intractable Start: 05-24-2024 End: 05-24-2024 ambulatory DIONICIO BROWER Facility:[facility] Start: 05-18-2024 End: 05-18-2024 Refill Dionicio Brower MD Work Phone: [facility] [place] Comment on above: Refill Request Start: 04-11-2024 End: 04-11-2024 Office outpatient visit 25 minutes Bruna Parker APRN.TELEGRAPH MESSENGER Work Phone: [facility] [place] Comment on above: Bronchitis (Primary Dx); Cough, unspecified type Start: 04-11-2024 End: 04-11-2024 ambulatory [facility] Facility:[facility] Start: 04-09-2024 End: 04-09-2024 Telephone encounter Callie Ordonez APRN.CNP Work Phone: [facility] Comment on above: Results Start: 04-08-2024 End: 04-08-2024 Subsequent hospital visit by physician Xr [facility] [place] Work Phone: Radiology Comment on above: Wheezing [R06.2] Start: 04-08-2024 End: 04-08-2024 ambulatory [facility] Facility:[facility] Start: 04-08-2024 End: 04-08-2024 Patient encounter procedure Noreen Tenorio PA-C Work Phone: [facility] Comment on above: Bronchitis (Primary Dx) Start: 03-31-2024 End: 03-31-2024 Patient encounter procedure Dionicio Brower MD Work Phone: [facility] [place] Comment on above: Migraine without aur a and with status migrainosus, not intractable (Primary Dx); Encounter for immunization; Chronic neck pain; Lung nodules; Schizoaffective disorder, bipolar type (HCC); Bipolar 1 disorder (HCC); Screening for depression; Screening for colon cancer; Migraine with aura, not intractable, without status migrainosus Start: 03-31-2024 End: 03-31-2024 ambulatory DIONICIO INOCENTE Facility:[facility] Start: 02-28-2024 End: 02-28-2024 Refill Dionicio Brower MD Work Phone: [facility] [place] Comment on above: Refill Request Start: 01-24-2024 End: 01-24-2024 Office outpatient visit 25 minutes Bruna Parker APRN.CNP Work Phone: [facility] [place] Comment on above: Acute otitis media, right (Primary Dx) Start: 12-16-2023 Refill Dionicio Brower MD Work Phone: [facility] [place] Comment on above: Refill Request Start: 11-15-2023 Refill Dionicio Brower MD Work Phone: [facility] [place] Comment on above: Refill Request Start: 10-22-2023 End: 10-22-2023 Patient encounter procedure Dionicio Borwer MD Work Phone: [facility] [place] Comment on above: Grief reaction (Prim luz marina Dx); Gastroesophageal reflux disease without esophagitis Start: 10-13-2023 Telephone encounter Dionicio Brower MD Work Phone: [facility] [place] Comment on above: Patient Update Start: 10-13-2023 End: 10-13-2023 Patient encounter procedure Dionicio Brower MD Work Phone: [facility] [place] Comment on above: Grief reaction (Prim luz marina Dx); Primary insomnia; Bipolar 1 disorder (HCC); PTSD (post-traumatic stress disorder); Schizoaffective disorder, bipolar type (HCC) Start: 09-17-2023 Refill Dionicio Brower MD Work Phone: [facility] Comment on above: Refill Request Start: 09-03-2023 Telephone encounter Dionicio Brower MD Work Phone: [facility] [place] Start: 08-12-2023 Telephone encounter Dionicio Brower MD Work Phone: [facility] [place] Comment on above: Results Start: 08-11-2023 End: 08-11-2023 Subsequent hospital visit by physician Tiffanie [facility] [place] Work Phone: Radiology Comment on above: URI, acute [J06.9] Start: 08-11-2023 End: 08-11-2023 Patient encounter procedure Dionicio Brower MD Work Phone: [facility] [place] Comment on above: URI, acute (Primary Dx); Leg cramps; Acute otitis media, right; Bronchitis Start: 08-11-2023 ambulatory Dionicio Brower MD Work Phone: [facility] [place] Start: 07-03-2023 Refill Dionicio Brower MD Work Phone: [facility] [place] Comment on above: Refill Request Start: 06-22-2023 End: 06-22-2023 Patient encounter procedure Nilson Taylor PA-C Work Phone: Plastic Surgery Comment on above: De Quervain's tenosy novitis, right (Primary Dx); Right wrist pain; Trigger thumb of right hand Start: 06-14-2023 End: 06-14-2023 Emergency department patient visit [facility] Work Phone: Start: 06-11-2023 End: 06-11-2023 Subsequent hospital visit by physician [facility] (I-Stat) Work Phone: Cat Scan Comment on above: Lung nodules [R91.8] Start: 06-03-2023 End: 06-04-2023 Emergency department patient visit [facility] Work Phone: Start: 05-25-2023 End: 05-25-2023 Subsequent hospital visit by physician Xr [facility] Work Phone: Radiology Comment on above: Right wrist pain [M2 5.531] Start: 04-26-2023 End: 04-26-2023 Office outpatient visit 25 minutes [employer] MAKEUP SALES CONSULTANT.TELEGRAPH MESSENGER Work Phone: [facility] Comment on above: Acute otitis externa of right ear, unspecified type (Primary Dx) Start: 04-19-2023 Refill Dionicio Brower MD Work Phone: [facility] Comment on above: Refill Request Start: 02-12-2023 Refill Dionicio Brower MD Work Phone: [facility] Comment on above: Refill Request Start: 02-01-2023 ambulatory Dionicio Brower MD Work Phone: [facility] Comment on above: Breathing Problem Start: 01-07-2023 Telephone encounter Callie Robledo APRN.TELEGRAPH MESSENGER Work Phone: [facility] Comment on above: Results Start: 01-06-2023 End: 01-06-2023 Patient encounter procedure Cole Frazier MD Work Phone: [facility] Comment on above: Acute cough (Primary Dx); Influenza-like illness Start: 12-07-2022 Telephone encounter Dionicio Brower MD Work Phone: [facility] Comment on above: Medication Request Refill Request Start: 09-21-2022 End: 09-21-2022 Refill Dionicio Brower MD Work Phone: [facility] [place] Comment on above: Refill Request Foot pain, right [M7 9.671] Start: 09-09-2022 ambulatory Dionicio Brower MD Work Phone: [facility] [place] Start: 08-19-2022 Refill Dionicio Brower MD Work Phone: [facility] Comment on above: Refill Request Start: 07-25-2022 End: 07-25-2022 Emergency department patient visit PHYSICIAN [facility] Start: 07-07-2022 Refill Dionicio Brower MD Work Phone: [facility] Comment on above: Refill Request Start: 05-21-2022 Refill Dionicio Brower MD Work Phone: [facility] Comment on above: Refill Request Start: 04-22-2022 End: 04-22-2022 Office outpatient visit 15 minutes Bruna Parker APRN.CNP Work Phone: [facility] Comment on above: De Quervain's syndro me (tenosynovitis) (Primary Dx); Right non-suppurative otitis media Start: 04-08-2022 End: 04-08-2022 Refill Dionicio Brower MD Work Phone: [address] [place] [address] Comment on above: Refill Request Other acute nonsuppu rative otitis media of right ear, recurrence not specified (Primary Dx) Start: 03-31-2022 End: 03-31-2022 Subsequent hospital visit by physician Tiffanie [facility] [place] Work Phone: Radiology Comment on above: Injury of right uppe r extremity, initial encounter [S49.91XA] Start: 03-21-2022 Refill Dionicio Brower MD Work Phone: [facility] [place] Comment on above: Refill Request Start: 03-16-2022 End: 03-16-2022 Patient encounter procedure Nadege Hills APRNIsaccTELEGRAPH MESSENGER Work Phone: [facility] Comment on above: Acute otitis media, right (Primary Dx); Otalgia, right ear Start: 03-12-2022 End: 03-12-2022 Patient encounter procedure Rudy Lugo PA-C Work Phone: [facility] [place] Comment on above: Migraine with aura, not intractable, without status migrainosus (Primary Dx); Migraine without aura and with status migrainosus, not intractable; Chronic tension-type headache, intractable; Lumbar spondylosis; DDD (degenerative disc disease), cervical; Bipolar 1 disorder (HCC); PTSD (post-traumatic stress disorder); Schizoaffective disorder, bipolar type (HCC); Smoker; Lung nodules; Encounter for immunization; Somatic dysfunction of cervical region Start: 03-09-2022 Telephone encounter Rudy Jordy Lugo PA-C Work Phone: [facility] Comment on above: Patient Question Start: 02-25-2022 Telephone encounter Dionicio Brower MD Work Phone: [facility] [place] Comment on above: Results Start: 02-19-2022 End: 02-19-2022 Patient encounter procedure Rudy Jordy Lugo PA-C Work Phone: [facility] [place] Comment on above: Bipolar 1 disorder ( HCC) (Primary Dx); Migraine with aura, not intractable, without status migrainosus; DDD (degenerative disc disease), cervical; Lumbar spondylosis; Schizoaffective disorder, bipolar type (HCC); Elevated glucose Start: 02-09-2022 Telephone encounter Dionicio Brower MD Work Phone: [facility] Comment on above: Medication Problem Start: 01-15-2022 Refill Dionicio Brower MD Work Phone: [facility] Comment on above: Refill Request Start: 01-01-2022 Refill Dionicio Brower MD Work Phone: [facility] Comment on above: Refill Request Start: 12-04-2021 Refill Dionicio Brower MD Work Phone: [facility] Comment on above: Refill Request Start: 11-23-2021 Telephone encounter Callie Robledo ILIR.TELEGRAPH MESSENGER Work Phone: [facility] Comment on above: Results Start: 11-22-2021 End: 11-22-2021 Patient encounter procedure Chio Vale ILIR.TELEGRAPH MESSENGER Work Phone: [facility] Comment on above: Suspected COVID-19 v irus infection (Primary Dx) Start: 11-05-2021 Refill Rudy Jordy cronin PA-C Work Phone: [facility] Comment on above: Refill Request Start: 10-31-2021 Telephone encounter Dionicio Brower MD Work Phone: [facility] Comment on above: Medication Problem Start: 10-27-2021 Refill Dionicio Brower MD Work Phone: [facility] Comment on above: Refill Request Start: 10-20-2021 Telephone encounter Rudy Jordy Lugo PA-C Work Phone: [facility] Comment on above: Appointment Start: 10-17-2021 End: 10-17-2021 Distance Health Rudy Jordy Lugo PA-C Work Phone: [facility] Comment on above: Closed head injury w ithout loss of consciousness, initial encounter (Primary Dx); Hematoma of occipital region of scalp; Concussion without loss of consciousness, initial encounter; Migraine with aura, not intractable, without status migrainosus; Bipolar 1 disorder (HCC); PTSD (post-traumatic stress disorder); Schizoaffective disorder, bipolar type (HCC); Lung nodules Start: 09-22-2021 Refill Dionicio Brower MD Work Phone: [facility] Comment on above: Refill Request Start: 09-19-2021 ambulatory Ami Rudy Asael UNDERWOOD Work Phone: [facility] Comment on above: Head Injury Start: 09-08-2021 End: 09-08-2021 Patient encounter procedure M Jordy Lugo PA-C Work Phone: [facility] Comment on above: Migraine with aura, not intractable, without status migrainosus (Primary Dx); Bipolar 1 disorder (HCC); PTSD (post-traumatic stress disorder); Schizoaffective disorder, bipolar type (HCC) Start: 09-01-2021 Refill Dionicio Brower MD Work Phone: [facility] Comment on above: Refill Request Start: 08-20-2021 Refill Dionicio Brower MD Work Phone: [facility] Comment on above: Erroneous encounter- disregard Start: 08-07-2021 Documentation procedure Mammog carrie Coordinator [facility] Start: 08-07-2021 Letter encounter Mammography Coordinator [facility] Department Start: 08-07-2021 Telephone encounter Dionicio Brower MD Work Phone: [facility] Comment on above: Results Start: 08-07-2021 End: 08-07-2021 Subsequent hospital visit by physician Screen Mammo [facility] Comment on above: Encounter for screen ing mammogram for breast cancer [Z12.31] Lung nodules [R91.8] Start: 07-24-2021 End: 07-24-2021 Subsequent hospital visit by physician Xr [facility] [place] Work Phone: Radiology Comment on above: DDD (degenerative di sc disease), cervical [M50.30] Start: 12-13-2017 End: 12-13-2017 Emergency department patient visit [facility] Procedures Date Procedure Procedure Detail Performing Clinician Start: 04-08-2024 Radiologic exam ches t 2 views Noreen Tenorio PA-C Work Phone: Start: 03-31-2024 Adult depression scr eening assessment Dionicio Brower MD Work Phone: Start: 08-11-2023 Radiologic exam ches t 2 views Dionicio Brower MD Work Phone: Start: 06-14-2023 CT of abdomen and pe lvis without contrast Start: 06-11-2023 Ct thorax w/o contra st material Dionicio Brower MD Work Phone: Start: 06-03-2023 X-ray of lumbar spin e, two or three views Start: 06-03-2023 Plain x-ray of wrist Start: 06-03-2023 Radiography of sacrococcygeal spine Start: 05-25-2023 Radex wrist complete minimum 3 views Dionicio Brower MD Work Phone: Start: 09-21-2022 Radex foot complete minimum 3 views Nadege Hills MAKEUP SALES CONSULTANT.TELEGRAPH MESSENGER Work Phone: Start: 03-31-2022 Radex hand minimum 3 views Andriy Temple MAKEUP SALES CONSULTANT.TELEGRAPH MESSENGER Work Phone: Start: 10-17-2021 Adult depression scr eening assessment NA Lugo PA-C Work Phone: Start: 09-08-2021 Adult depression scr eening assessment NA Lugo PA-C Work Phone: Start: 08-07-2021 Ct thorax w/o contra st material Dionicio Brower MD Work Phone: Start: 08-07-2021 Mammography Screen Wst r Start: 07-24-2021 Radex spine cervical 4 or 5 views Dionicio Brower MD Work Phone: Start: 07-19-2020 Lipid 1996 panel - S cheryr or Plasma Dionicio Brower MD Work Phone: Start: 07-21-2018 Adult depression scr eening assessment Screen Wstr Plan of Treatment Date Care Activity Detail Author Start: 11-04-2030 Urine microalbumin profile [facility] Start: 05-25-2027 Screening for malign ant neoplasm of colon [facility] Start: 09-01-2026 Diabetes Screening Diabetes Screenin [facility] Start: 08-10-2026 Diabetes Screening Diabetes Screenin g [facility] Start: 07-25-2025 Diabetes Screening Diabetes Screenin g [facility] Start: 07-19-2025 Lipid 1996 panel - Serum or Plasma Lipid Screening [facility] Start: 07-19-2025 Lipid panel Lipid Screening [facility] Start: 07-19-2025 LIPID SCREEN LIPID SCREEN [facility] Start: 03-31-2025 Covid-19 Vaccine (3 - 2024-25 season) Covid-19 Vaccine () [facility] Comment on above: Postponed from 01/08 (Declined at this time) Start: 03-31-2025 Depression Screening Depression Scre agustina [facility] Start: 03-13-2025 End: 03-13-2025 Patient encounter procedure 03/13/2025 3:00 PM EST Office Visit Neurology [address] [place] [address] Alix Douglas PA-C [address] [place] [address] 3 month follow up Neurology Comment on above: 3 month follow up Start: 02-20-2025 DIABETES SCREEN DIABETES SCREEN [facility] Start: 02-20-2025 Diabetes Screening Diabetes Screenportia jameson [facility] Start: 01-23-2025 End: 01-23-2025 Patient encounter procedure 01/23/2025 3:40 PM EDT Office Visit [facility] [place] [address] [place] [address] Dionicio Brower MD [address] [place], [place] [id number] 6 mo follow up [facility] [place] Comment on above: 6 mo follow up Start: 01-10-2025 End: 01-10-2025 Patient encounter procedure 01/10/2025 3:00 PM EDT Office Visit Neurology [address] [place], [place] [id number] Alix Douglas PA-C [address] [place] [address] 4 month follow up Neurology Comment on above: 4 month follow up Start: 01-08-2025 Influenza vaccination Influenza Vacc ine (#1) [facility] Start: 12-06-2024 End: 12-06-2024 Patient encounter procedure 12/06/2024 3:00 PM EDT Office Visit Neurology [address] [place], [place] [id number] Alix Douglas PA-C [address] [place], [place] [id number] Migraine Neurology Comment on above: Migraine Start: 09-05-2024 End: 09-05-2024 Patient encounter procedure 09/05/2024 2:00 PM EDT Office Visit Neurology [address] [place] [address] Dx: ANNALISA (obstructive sleep apnea) [G47.33] Neurology Comment on above: Dx: ANNALISA (obstructive sleep apnea) [G47.33] Start: 08-16-2024 End: 08-16-2024 Patient encounter procedure 08/16/2024 2:30 PM EDT Office Visit Neurology [address] [place], [place] [id number] Alix Douglas PA-C [address] [place], [place] [id number] Migraine without aura and with status migrainosus, not intractable [G43.001] Neurology Comment on above: Migraine without aur a and with status migrainosus, not intractable [G43.001] Start: 07-26-2024 End: 07-26-2024 Patient encounter procedure 07/26/2024 2:15 PM EDT Appointment [facility] [address] [place] [address] Coretta Ortega MD [address] [place] [id number] Colon EGD [facility] Comment on above: Colon EGD Start: 07-19-2024 End: 07-19-2024 Patient encounter procedure 07/19/2024 4:00 PM EDT Office Visit [facility] [place] [address] [place], [place] [id number] Dionicio Brower MD [address] [place], [place] [id number] Follow up. Anxiety and Migraines [facility] [place] Comment on above: Follow up. Anxiety a nd Migraines Start: 06-08-2024 End: 06-08-2024 Patient encounter procedure 06/08/2024 2:00 PM EST Office Visit General Surgery [address] [place] [address] Vani Mccann APRN.TELEGRAPH MESSENGER [address] [place] [address] Consult- colonscopy Positive colorectal cancer screening using Cologuard test [R19.5] General Surgery Comment on above: Consult- colonscopy Positive colorectal cancer screening using Cologuard test [R19.5] Start: 05-24-2024 End: 05-24-2024 Patient encounter procedure 05/24/2024 8:40 AM EST Office Visit [facility] [place] [address] [place] [address] Dionicio Brower MD [address] [place] [address] 4 week f/u migraines Family [facility] Comment on above: 4 week f/u migraines Start: 04-28-2024 End: 04-28-2024 Patient encounter procedure 04/28/2024 2:00 PM EST Office Visit Family [facility] [place] [address] [place] [address] Debbie Pop APRN.TELEGRAPH MESSENGER [address] [place] [address] 4 week f/u migraines [facility] Comment on above: 4 week f/u migraines Start: 01-09-2024 Covid-19 Vaccine ( season) Covid-19 Vaccine ( season) [facility] Start: 01-09-2024 Covid-19 Vaccine ( season) Covid-19 Vaccine () [facility] Start: 01-09-2024 Influenza vaccination C [facility] Start: 11-19-2023 End: 11-19-2023 Patient encounter procedure 11/19/2023 4:20 PM EDT Office Visit [facility] [place] [address] [place] [address] Dionicio Brower MD [address] [place] [address] 4 week follow up Family [facility] Comment on above: 4 week follow up Start: 10-22-2023 End: 10-22-2023 Patient encounter procedure 10/22/2023 4:40 PM EDT Office Visit Family [facility] [address] [place] [address] Dionicio Brower MD [address] [place] [address] 1 week follow up Family [facility] Comment on above: 1 week follow up Start: 08-12-2023 End: 11-11-2023 Basic metabolic 2000 panel - Serum or Plasma BASIC METABOLIC PNL Lab Routine Hypokalemia Expected: 08/12/2023, Expires: 11/11/2023 [facility] Work Phone: Comment on above: Expected: 08/12/2023 , Expires: 11/11/2023 Start: 08-11-2023 End: 11-10-2023 Basic metabolic 2000 panel - Serum or Plasma [facility] Work Phone: Comment on above: Expected: 08/11/2023 , Expires: 11/10/2023 Start: 08-11-2023 End: 11-10-2023 Magnesium [Mass/volume] in Serum or Plasma [facility] Work Phone: Comment on above: Expected: 08/11/2023 , Expires: 11/10/2023 Start: 06-14-2023 Bacteria identified in Urine by Culture [facility] Start: 06-14-2023 [facility] Start: 06-14-2023 [facility] Start: 06-03-2023 [facility] Start: 05-10-2023 Behavioral Health Screening Behavioral Health Screening [facility] Start: 05-10-2023 Depression Assessment Depression Ass essment [facility] Start: 01-08-2023 Covid-19 Vaccine ( season) Covid-19 Vaccine ( season) [facility] Start: 01-08-2023 Influenza vaccination C [facility] Start: 10-17-2022 Adult depression screening assessment DEPRESSION SCREENING [facility] Start: 09-08-2022 Adult depression screening assessment DEPRESSION SCREENING [facility] Start: 08-07-2022 End: 09-06-2022 Ct thorax w/o contrast material CT CHEST WO IVCON Radiology Routine Lung nodules Expected: 08/07/2022, Expires: 09/06/2022 [facility] Work Phone: Comment on above: Expected: 08/07/2022 , Expires: 09/06/2022 Start: 08-07-2022 Mammography [facility] Start: 08-07-2022 Screening for malign ant neoplasm of breast Mammogram Screening [facility] Start: 2022 COLOGUARD (FIT-DNA) COLOGUARD (FIT-D NA) [facility] Start: 2022 Colonoscopy COLONOSCOPY [facility] Start: 2022 COLORECTAL CANCER SCREENING COLORECTAL CANCER SCREENING [facility] Start: [address] COLONOGRAPHY [facility] Start: 2022 FECAL OCCULT BLOOD FECAL OCCULT BLOO D [facility] Start: 2022 Screening for malign ant neoplasm of colon [facility] Start: 2022 SIGMOIDOSCOPY SIGMOIDOSCOPY [facility] Start: 05-22-2022 End: 07-22-2022 Hemoglobin A1c in Blood HGB A1C Lab Routine Bipolar 1 disorder (HCC) Elevated glucose Expected: 05/22/2022, Expires: 07/22/2022 [facility] Work Phone: Comment on above: Expected: 05/22/2022 , Expires: 07/22/2022 Start: 05-10-2022 DEPRESSION ASSESSMENT DEPRESSION ASS ESSMENT [facility] Start: 02-19-2022 End: 04-21-2022 CBC panel - Blood by Automated count CBC Lab Routine Bipolar 1 disorder (HCC) Schizoaffective disorder, bipolar type (HCC) Elevated glucose Expected: 02/19/2022, Expires: 04/21/2022 [facility] Work Phone: Comment on above: Expected: 02/19/2022 , Expires: 04/21/2022 Start: 02-19-2022 End: 04-21-2022 Comprehensive metabolic 2000 panel - Serum or Plasma COMP METABOLIC PANEL Lab Routine Bipolar 1 disorder (HCC) Schizoaffective disorder, bipolar type (HCC) Elevated glucose Expected: 02/19/2022, Expires: 04/21/2022 [facility] Work Phone: Comment on above: Expected: 02/19/2022 , Expires: 04/21/2022 Start: 01-08-2022 Influenza vaccination INFLUENZA (#1) [facility] Start: 11-22-2021 End: 12-06-2021 Influenza virus A and B RNA and SARS-CoV-2 (COVID-19) N gene panel - Respiratory specimen by JOHANNE with probe detection COVID WITH FLUA+B, ROUTINE Microbiology Routine Suspected COVID-19 virus infection Expected: 11/22/2021, Expires: 12/06/2021 [facility] Work Phone: Comment on above: Expected: 11/22/2021 , Expires: 12/06/2021 Start: 09-28-2021 COVID-19 VACCINE (3 - Booster for Pfizer series) COVID-19 VACCINE (3 - Booster for Pfizer series) [facility] Start: 06-25-2021 COVID-19 VACCINE (3 - Booster for Pfizer series) COVID-19 VACCINE (3 - Booster for Pfizer series) [facility] Start: 06-25-2021 COVID-19 VACCINE (3 - Pfizer series) COVID-19 VACCINE (3 - Pfizer series) [facility] Start: 05-10-2021 DEPRESSION ASSESSMENT DEPRESSION ASS ESSMENT [facility] Start: 07-22-2019 Adult depression screening assessment DEPRESSION SCREENING [facility] Start: 08-05-2007 HPV TESTING HPV TESTING [facility] Start: 08-05-2007 Screening for malign ant neoplasm of cervix HPV Testing [facility] Start: 1998 PAP TESTING PAP TESTING [facility] Start: 1998 Screening for malign ant neoplasm of cervix [facility] Start: 1996 ONE PNEUMOVAX PRIOR TO AGE 65 ONE PNEUMOVAX PRIOR TO AGE 65 [facility] Start: 1996 Urine microalbumin profile DTAP,TDAP,TD (1 - Tdap) [facility] Start: 08-05-1995 Depression Screening Depression Scre ening [facility] Start: 08-05-1983 PNEUMOCOCCAL (1 - PCV) PNEUMOCOCCAL (1 - PCV) [facility] COLOGUARD COLOGUARD Lab Ro utine Screening for colon cancer Ordered: 03/31/2024 [facility] Work Phone: Comment on above: Ordered: 03/31/2024 COVID & INFLUENZA A/ B & RSV NAAT, ROUTINE COVID & INFLUENZA A/B & RSV NAAT, ROUTINE Microbiology Routine URI, acute 08/11/2023 4:20 PM EDT [facility] Work Phone: COVID & INFLUENZA A/ B & RSV PCR, ROUTINE COVID & INFLUENZA A/B & RSV PCR, ROUTINE Microbiology Routine Bronchitis Ordered: 04/08/2024 [facility] Work Phone: Comment on above: Ordered: 04/08/2024 End: 08-10-2025 DBT Breast - bilateral screening DELLA SCREENING W KELVIN Radiology Routine Encounter for screening mammogram for breast cancer 1 Occurrences starting 07/11/2024 until 08/10/2025 [facility] Work Phone: Comment on above: 1 Occurrences starti ng 07/11/2024 until 08/10/2025 End: 06-08-2025 EGD DIAGNOSTIC EGD DIAGNOSTIC Endoscopy Routine Positive colorectal cancer screening using Cologuard test Gastroesophageal reflux disease, unspecified whether esophagitis present 1 Occurrences starting 06/08/2024 until 06/08/2025 [facility] Work Phone: Comment on above: 1 Occurrences starti ng 06/08/2024 until 06/08/2025 End: 06-08-2025 Flexible sigmoidoscopy study COLONOSCOPY DIAGNOSTIC Endoscopy Routine Positive colorectal cancer screening using Cologuard test 1 Occurrences starting 06/08/2024 until 06/08/2025 [facility] Comment on above: 1 Occurrences starti ng 06/08/2024 until 06/08/2025 End: 08-16-2025 HOME SLEEP APNEA TEST (HSAT) HOME SLEEP APNEA TEST (HSAT) Procedures Routine ANNALISA (obstructive sleep apnea) 1 Occurrences starting 08/16/2024 until 08/16/2025 [facility] Work Phone: Comment on above: 1 Occurrences starti ng 08/16/2024 until 08/16/2025 Influenza virus A an d B RNA and SARS-CoV-2 (COVID-19) N gene panel - Respiratory specimen by JOHANNE with probe detection COVID & INFLUENZA A/B NAAT, ROUTINE Microbiology Routine Acute cough Influenza-like illness 01/06/2023 4:12 PM EDT [facility] Work Phone: End: 10-09-2023 DELLA SCREENING DELLA SCREENING Radiology Routine Encounter for screening mammogram for breast cancer 1 Occurrences starting 09/09/2022 until 10/09/2023 [facility] Work Phone: Comment on above: 1 Occurrences starti ng 09/09/2022 until 10/09/2023 End: 09-09-2024 MG Breast Screening DELLA SCREENING Radiology Routine Encounter for screening mammogram for breast cancer 1 Occurrences starting 08/11/2023 until 09/09/2024 [facility] Work Phone: Comment on above: 1 Occurrences starti ng 08/11/2023 until 09/09/2024 Patient Education [facility] Work Phone: Patient referral [facility] Work Phone: End: 09-09-2024 XR Chest PA and Lateral XR CHEST 2V FRONTAL/LAT Radiology Routine URI, acute Bronchitis 1 Occurrences starting 08/11/2023 until 09/09/2024 [facility] Work Phone: Comment on above: 1 Occurrences starti ng 08/11/2023 until 09/09/2024 XR Chest PA and Lateral XR CHEST 2V FRONTAL/LAT Radiology Routine URI, acute Bronchitis 08/11/2023 5:06 PM EDT [facility] Work Phone: XR Hand - left PA an d Lateral and Oblique XR HAND GENERAL 3V PA/LAT/OBL LEFT Radiology Routine Right wrist pain Ordered: 06/22/2023 [facility] Work Phone: Comment on above: Ordered: 06/22/2023 End: 07-21-2024 XR Wrist - left PA and Lateral and Oblique XR WRIST GENERAL 3V PA/LAT/OBL LEFT Radiology Routine Right wrist pain 1 Occurrences starting 06/22/2023 until 07/21/2024 [facility] Work Phone: Comment on above: 1 Occurrences starti ng 06/22/2023 until 07/21/2024 [facility] Immunizations Immunization Date Immunization Notes Care Provider Fa [facility] 03-31-2024 influenza, seasonal, injectable Dionicio Brower MD Work Phone: [facility] 03-31-2024 influenza virus vaccine, unspecified formulation Dionicio Brower MD Work Phone: [facility] 03-12-2022 pneumococcal Conjuga te, unspecified formulation NA Lugo PA-C Work Phone: [facility] Work Phone: 03-12-2022 pneumococcal (PCV20) vaccine, 20 valent (PREVNAR 20) NA Lugo PA-C Work Phone: [facility] 04-09-2021 influenza, injectabl e, quadrivalent, preservative free NA Lugo PA-C Work Phone: [facility] 04-09-2021 influenza virus vaccine, unspecified formulation Dionicio Brower MD Work Phone: [facility] 11-04-2020 tetanus toxoid, redu jeremy diphtheria toxoid, and acellular pertussis vaccine, adsorbed NA Lugo PA-C Work Phone: [facility] Payers Date Payer Category Payer Self-pay [id number] 2024 [employer] [facility] BLUE CARD PPO OOS [id number] 2024 Unknown [id number] 2022 Unknown [id number] 2022 Unknown [id number] 2013 Unknown [employer] [id number] Medicaid MEDICAID [id number] Unknown [facility] [id number] [id number] Unknown [id number] Unknown [id number] Social History Date Type Detail Facility Start: 07-10-2013 End: 01-24-2024 Tobacco smoking status SDIS Smokes tobacco daily [facility] History of tobacco use [facility] Work Phone: Start: 07-24-2021 End: 12-06-2024 Alcohol intake Current non-drinker of alcohol (finding) [facility] Start: 1975 Sex Assigned At [facility] on file [facility] Start: 07-14-2021 End: 04-08-2022 Exposure to SARS-CoV-2 (event) Not sure [facility] Start: 07-10-2013 End: 10-29-2022 Cigarettes smoked current (pack per day) - Reported 0.5 [facility] Work Phone: Start: 07-10-2013 End: 01-24-2024 Tobacco use and exposure Smokeless tobacco non-user [facility] Start: 09-21-2022 End: 10-29-2022 Tobacco use panel [facility] Work Phone: Start: 04-10-2012 Adult Depression Screening Assessment 3 [facility] Work Phone: Start: 06-14-2023 Tobacco smoking stat us SDIS Unknown if ever smoked [facility] Start: 04-26-2020 None [facility] Start: 04-26-2020 With Family [facility] Start: 08-18-2019 Cigarettes [facility] Start: 1975 Sex Assigned At Female [facility] Has the [employer], or [email or web address] threatened to shut off services in your home in past 12Mo No [facility] Are you now , , , , never or living with a partner? [facility] How often to you hav e a drink containing alcohol? Never [facility] How hard is it for y ou to pay for the very basics like food, housing, medical care, and heating Somewhat hard [facility] Do you feel stress - tense, restless, nervous, or anxious, or unable to sleep at night because your mind is troubled all the time - these days [OSQ] Very much [facility] (I/We) worried wheth er (my/our) food would run out before (I/we) got money to buy more. Sometimes true [facility] In the past 12 month s, was there a time when you were not able to pay the mortgage or rent on time? Yes [facility] Functional Status Date Assessment Result Facility 07-18-2024 Total score [AUDIT-C] 0 07/19/19 25 5:31 AM EDT [facility]Jes[facility] 07-18-2024 Within the last year , have you been humiliated or emotionally abused in other ways by your partner or ex-partner? No 07/18/2024 5:31 AM EDT UserJesica No [facility] 07-18-2024 Within the last year , have you been afraid of your partner or ex-partner? No 07/18/2024 5:31 AM EDT UserTret No [facility] 07-18-2024 Within the last year , have you been raped or forced to have any kind of sexual activity by your partner or ex-partner? No 07/18/2024 5:31 AM EDT UserJesica No [facility] 07-18-2024 Within the last year , have you been kicked, hit, slapped, or otherwise physically hurt by your partner or ex-partner? No 07/18/2024 5:31 AM EDT UserTret No [facility] 07-18-2024 How often to you hav e a drink containing alcohol? Never 07/18/2024 5:31 AM EDT UserTret Never [facility] 07-18-2024 Functional status Patient does n ot drink 07/18/2024 5:31 AM EDT UserJesica Patient does not drink [facility] 07-18-2024 How often do you hav e 6 or more drinks on 1 occasion? Never 07/18/2024 5:31 AM EDT UserJesica Never [facility] 11-26-2014 Are you deaf, or do you have serious difficulty hearing No 11/26/2014 4:05 PM Keyla Pang Cma No [facility] 11-26-2014 Are you blind, or do you have serious difficulty seeing, even when wearing glasses No 11/26/2014 4:05 PM Keyla Pang Cma No [facility] 11-26-2014 Do you have serious difficulty walking or climbing stairs No 11/26/2014 4:05 PM Keyla Pang Cma No [facility] 11-26-2014 Do you have difficul ty dressing or bathing No 11/26/2014 4:05 PM Keyla Pang Cma No [facility] 11-26-2014 Because of a physica l, mental, or emotional condition, do you have difficulty doing errands alone such as visiting a physician's office or shopping No 11/26/2014 4:05 PM EDT [employer] Keyla Cuello No [facility] Mental Status Date Assessment Result Facility 11-26-2014 Because of a physica l, mental, or emotional condition, do you have serious difficulty concentrating, remembering, or making decisions No 11/26/2014 4:05 PM EDT Heriberto CuelloKeyla No [facility] Clinical Notes 12-01-2013 to 03-19-2025 Telephone Encounter - Candice Shipman LPN - 12/20/2024 10:37 AM EDTTelephone Encounter - Candice Shipman LPN - 12/20/2024 10:37 AM EDTTelephone Encounter - Candice Shipman LPN - 12/07/2024 1:28 PM EDT Note Date & Type Note Facility 03-19-2025 Note HNO ID: [id number] Author: DIONICIO BROEWR MD Service: ? Author Type: Physician Type: Progress Notes Filed: 03/19/2025 13:31 Note Text: The patient is a 49-year-old female with chronic low back pain and mild lumbar degenerative changes, presenting for ER follow-up of persistent low back pain radiating into the left lower extremity. SUKHDEV Herrera is a 49-year-old female presenting for follow-up after an ER visit for severe left gluteal pain. Left Gluteal Pain: - Severe pain described as a Jeet horse in the left gluteal region. - Pain radiates to the knee and ankle, causing difficulty standing. - Recent ER visit at [facility] on 03/17; diagnosed with a myofascial sprain and prescribed hydrocodone. - Lumbar spine X-rays were negative. - Pain initially improved but returned with increased severity. - Has been alternating between ice and heat for pain management. - Using hydrocodone primarily at night to aid sleep; reports inadequate relief. - Previously prescribed steroids (three rounds) with no significant improvement. - Taking Lyrica 25 mg and baclofen; reports minimal relief. - Denies effectiveness of Robaxin. - Engages in home stretches as recommended by ER physician. - Financial constraints limit ability to afford physical therapy. - Resumed THC use for pain management after previous cessation. MEDICATIONS: Current Outpatient Medications Medication Sig albuterol (PROVENTIL) 2.5 mg /3 mL (0.083 %) nebulizer solution Use 3 mL via nebulizer every 6 hours as needed for wheezing/shortness of breath. Use over 5-15minutes. SUMAtriptan (IMITREX) 100 mg tablet Take 1 tablet by mouth as needed for migraine headache (see administration instructions). baclofen 10 mg tablet Take 1 tablet by mouth three times a day. meloxicam (MOBIC) 15 mg tablet Take 1 tablet by mouth once daily. pregabalin (LYRICA) 50 mg capsule Take 1 capsule by mouth two times a day for 90 days. iv contrast (will be provided with radiology test) MRI LSP Inject, intravenously, once for 1 dose. No IV access, insert saline lock prior to the beginning of sedation, infusion, injection of imaging exam. Discontinue saline lock post exam. If Pt. has a central line or IVAD, may access for administration according to line specific nursing protocol. Once exam is complete flush line and de-access according to line specific nursing protocol in the MR contrast administration guidelines link. triamcinolone acetonide (KENALOG) 0.1 % cream Apply 1 application to affected area two times a day. Do not use for more than two weeks at a time. albuterol HFA (PROVENTIL HFA, VENTOLIN HFA) 90 mcg/actuation inhaler Inhale 2 Puffs as instructed every 6 hours as needed for Wheezing/Shortness of Breath. No current facility-administered medications for this visit. ALLERGIES: ALLERGIES Allergen Reactions Penicillins Unknown Vicodin [Hydrocodon* GI Upset States that was a reaction with compazine not an allergy. PAST MEDICAL HISTORY Diagnosis Date Bipolar 1 disorder ([facility]) sees psych at [facility] DVT (deep venous thrombosis) ([facility]) 2006 Marijuana use Migraine with aura PE (pulmonary embolism) 2006 PTSD (post-traumatic stress disorder) sees psych [facility] Schizoaffective disorder ([facility]) sees psych at [facility] Urinary tract infection, site not specified 2003 [...] lung Thyroid Sister Psychiatry Sister 2 sisters SOCIAL HISTORY[1] Reviewed current medications, allergies, past medical history, surgical history, family history and social history today. REVIEW OF SYSTEMS Constitutional: (+) insomnia Musculoskeletal: (+) left low back pain, (+) left gluteal pain, (+) radiating pain to left knee and ankle HEALTH MAINTENANCE: Reviewed health maintenance issues today and recommended the following in detail. Cervical Cancer Screening Never done Mammogram Screening due on 08/07/2022 Covid-19 Vaccine() due on 01/08/2025 Depression Screening due on 03/31/2025 LAB REVIEWED: - (03/17/2025) - Lumbar spine radiographs: Negative. - ED assessment: Myofascial strain. - (02/13/2025) Lumbar spine radiographs: Mild degenerative changes. VITALS: BP 122/82 Pulse 88 LMP 10/13/2006 SpO2 96% Last 4 Encounter Wt Readings: Date: Wt: 02/13/2025 94.3 kg (208 lb) 02/05/2025 94.3 kg (208 lb) 12/06/2024 91.2 kg (201 lb) (more content not included)... [facility] 02-13-2025 Note HNO ID: [id number] Author: DIONICIO BROWER MD Service: ? Author Type: Physician Type: Progress Notes Filed: 02/15/2025 11:27 Note Text: The patient is a 49-year-old female presenting for evaluation of acute low back pain with radicular symptoms into the left leg. Accompanied by her daughter. SUKHDEV Paul is a 49-year-old female with a history of chronic back pain, presenting for follow-up of acute low back pain radiating to the left leg. Low Back Pain: - Acute onset of low back pain radiating to the left leg, began on 01/29/2025. - Pain described as superficial and really sore. - Pain initiated while trying to prevent a fall, resulting in a jolt to the side. - Denies known trauma or injury. - Pain localized to the left lower back and hip, extending down the left leg. - Associated with chronic discoloration in the back due to heating pad use. - Denies numbness or tingling. - Reports difficulty ambulating and prolonged time to reach the bathroom due to pain. - Recent episode of sneezing while on the toilet exacerbated pain. - Alternating use of ice and heat for pain management. - Reports increased THC use without relief. - Denies dysuria or abdominal pain. - Taking Lyrica and baclofen TID for years; recently increased baclofen dosage. - Medrol Dosepak prescribed previously MEDICATIONS: Current Outpatient Medications Medication Sig predniSONE (DELTASONE) 10 mg tablet Take 4 tabs daily for 3 days, then 2 tabs daily for 3 days, then 1 tab daily for 3 days with food. methocarbamol (ROBAXIN) 500 mg tablet Take 1 tablet by mouth three times a day. Do not use while on baclofen SUMAtriptan (IMITREX) 100 mg tablet Take 1 tablet by mouth as needed for migraine headache (see administration instructions). pregabalin (LYRICA) 25 mg capsule Take 1 capsule by mouth two times a day for 90 days. baclofen 10 mg tablet Take 1 tablet by mouth three times a day. triamcinolone acetonide (KENALOG) 0.1 % cream Apply 1 application to affected area two times a day. Do not use for more than two weeks at a time. albuterol (PROVENTIL) 2.5 mg /3 mL (0.083 %) nebulizer solution Use 3 mL via nebulizer every 6 hours as needed for wheezing/shortness of breath. Use over 5-15minutes. albuterol HFA (PROVENTIL HFA, VENTOLIN HFA) 90 mcg/actuation inhaler Inhale 2 Puffs as instructed every 6 hours as needed for Wheezing/Shortness of Breath. No current facility-administered medications for this visit. ALLERGIES: ALLERGIES Allergen Reactions Penicillins Unknown Vicodin [Hydrocodon* GI Upset States that was a reaction with compazine not an allergy. PAST MEDICAL HISTORY Diagnosis Date Bipolar 1 disorder ([facility]) sees psych at [facility] DVT (deep venous thrombosis) ([facility]) 2006 Marijuana use Migraine with aura PE [...] lung Thyroid Sister Psychiatry Sister 2 sisters SOCIAL HISTORY[1] Reviewed current medications, allergies, past medical history, surgical history, family history and social history today. REVIEW OF SYSTEMS Ears/Nose/Mouth/Throat: (+) sneezing Gastrointestinal: (-) abdominal pain, (-) fecal incontinence Genitourinary: (-) urinary incontinence, (-) dysuria Musculoskeletal: (+) left low back pain, (+) left hip pain, (+) left leg radicular pain, (+) leg soreness Skin: (+) back skin discoloration Neurological: (+) leg shakiness, (-) lower extremity weakness, (-) numbness, (-) tingling HEALTH MAINTENANCE: Reviewed health maintenance issues today and recommended the following in detail. Cervical Cancer Screening Never done Mammogram Screening due on 08/07/2022 Covid-19 Vaccine( season) due on 01/08/2025 LAB REVIEWED: VITALS: BP 102/62 Pulse 78 Wt 94.3 kg (208 lb) LMP 10/13/2006 SpO2 100% BMI 31.63 kg/m? Last 4 Encounter Wt Readings: Date: Wt: 02/13/2025 94.3 kg (208 lb) 02/05/2025 94.3 kg (208 lb) 12/06/2024 91.2 kg (201 lb) 08/16/2024 94.4 kg (208 lb 3.2 oz) PHYSICAL EXAMINATION: General: Alert, well-developed, appears uncomfortable. Extremities: No edema, positive straight leg raise at about 95 degrees on the left, 90 degrees on the right. Pulses: 2+ symmetric radial pulse. Skin: Warm and dry (more content not included)... [facility] 02-13-2025 Note HNO ID: [id number] Author: FLYNN AKBAR RT(R) Service: ? Author Type: Technologist Type: Progress Notes Filed: 02/13/2025 16:47 Note Text: Radiology Service Progress Note PATIENT NAME: Nabor Herrera DATE OF SERVICE: February 13, 2025 TIME: 4:34 PM PATIENT IDENTITY VERIFICATION COMPLETED USING TWO (2) IDENTIFIERS: Name and Date of confirmed by patient verbally. FALL SCREENING: Has the patient had 2 falls in the last year or 1 fall with injury or currently using an Ambulatory Assistive Device (Walker, Cane, Wheelchair, Crutches, etc.)? No PATIENT GENDER DATA: Assigned female at . status: : No status: NO. PATIENT RELEVANT IMPLANT DATA REVIEWED: Yes PATIENT PRESENTS WITH AN IMPLANTABLE OR ATTACHED SENIOR PHYSICAL THERAPIST: No RADIOLOGY DEPARTMENT: General X-ray: Exam(s) Completed: Spine X-Ray(s): Lumbar AP / LAT / L5-S1 PERIPHERAL IV DATA: Not applicable SIGNED BY: RT Gagan(R) February 13, 2025 4:34 PM [facility] 02-05-2025 Note HNO ID: [id number] Author: DIONICIO BROWER MD Service: ? Author Type: Physician Type: Progress Notes Filed: 02/05/2025 11:09 Note Text: The patient is a 49-year-old female with chronic migraine, presenting for evaluation of acute left lower back and hip pain aggravated by movement, coughing, and defecation. HPI Back Pain: - Onset last Wednesday after attempting to prevent a fall; no direct impact reported. - Initially asymptomatic for 1-2 days, then developed progressive pain and tightness. - Pain localized to the left lower back and hip, radiating up the side and exacerbated by coughing and positional changes. - Describes pain as feeling like bouncing on the stairs. - Associated with difficulty breathing, particularly during coughing episodes. - Reports chronic discoloration on the back due to heating pad use. - Denies numbness, tingling, or weakness in the legs. - Experiencing significant pain during bowel movements, causing sweating. - No urinary symptoms reported. - Using heating pads and ice packs for relief. - Taking baclofen, Lyrica, Tylenol, and ibuprofen with minimal relief. Headaches: - Poorly controlled; insurance issues preventing access to preferred medications. - Currently using Imitrex. 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 - Denies suicidal ideation. 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 MEDICATIONS: Current Outpatient Medications Medication Sig SUMAtriptan (IMITREX) 100 mg tablet Take 1 tablet by mouth as needed for migraine headache (see administration instructions). pregabalin (LYRICA) 25 mg capsule Take 1 capsule by mouth two times a day for 90 days. baclofen 10 mg tablet Take 1 tablet by mouth three times a day. methylPREDNISolone (MEDROL, FELIPE,) 4 mg Dose-Pack Take as instructed per package. triamcinolone acetonide (KENALOG) 0.1 % cream Apply 1 application to affected area two times a day. Do not use for more than two weeks at a time. albuterol (PROVENTIL) 2.5 mg /3 mL (0.083 %) nebulizer solution Use 3 mL via nebulizer every 6 hours as needed for wheezing/shortness of breath. Use over 5-15minutes. ibuprofen (MOTRIN) 800 mg tablet Take 1 tablet by mouth every 8 hours as needed for pain. Take with food. albuterol HFA (PROVENTIL HFA, VENTOLIN HFA) 90 mcg/actuation inhaler Inhale 2 Puffs as instructed every 6 hours as needed for Wheezing/Shortness of Breath. No current facility-administered medications for this visit. ALLERGIES: ALLERGIES Allergen Reactions Penicillins Unknown Vicodin [Hydrocodon* GI Upset States that was a reaction with compazine not an allergy. PAST MEDICAL HISTORY Diagnosis Date Bipolar 1 disorder ([facility]) [facility] DVT (deep venous thrombosis) ([facility]) 2006 Marijuana use Migraine with aura PE (pulmonary embolism) 2006 PTSD (post-traumatic stress disorder) sees psych at [facility] Schizoaffective disorder ([facility]) [facility] psych [facility] Urinary tract infection, site not specified 2003 [...] lung Thyroid Sister Psychiatry Sister 2 sisters SOCIAL HISTORY[1] Reviewed current medications, allergies, past medical history, surgical history, family history and social history today. REVIEW OF SYSTEMS Constitutional: (+) diaphoresis with bowel movements Head: (+) headaches Ears/Nose/Mouth/Throat: (+) cough Cardiovascular: (-) chest discomfort Respiratory: (+) pain with inspiration, (-) shortness of breath Gastrointestinal: (+) painful bowel movements, (-) abdominal pain Genitourinary: (-) urinary symptoms Musculoskeletal: (+) left lower back pain, (+) back stiffness, (+) left hip soreness Skin: (+) chronic lower back discoloration Psychiatric: (+) stress, (-) suicidal ideation HEALTH MAINTENANCE: Reviewed health maintenance issues today and recommended the following in detail. Cervical Cancer Screening Never done Mammogram Screening due on 08/07/2022 Influenza Vaccine(1) due on 01/08/2025 LAB REVIEWED: VITALS: BP 136/80 Pulse 78 Wt 94.3 kg (208 lb) LMP 10/13/2006 SpO2 99% BMI 31.63 kg/m? Last 4 Encounter Wt Readings: Date: Wt: 02/05/2025 94.3 kg (208 lb) 12/06/2024 91.2 kg (201 lb) 08/16/2024 94.4 kg (208 lb 3.2 oz) 07/19/2024 93.9 kg (207 lb) PHYSICAL EXAMINATION: General: Alert, well-developed, no acut (more content not included)... [facility] 02-02-2025 Note HNO ID: [id number] Author: ROSA DOSS APRN.TELEGRAPH MESSENGER Service: ? Author Type: Nurse Practitioner Type: Progress Notes Filed: 02/02/2025 10:14 Note Text: Telemedicine Visit - Distance Health Virtual Visit Note Patient seen on Floor[employer] Video Visit platform. Location of patient: [place] Dionicio Brower MD CHIEF COMPLAINT: The patient is a 49-year-old female with muscle spasticity, presenting for evaluation of acute low back strain with left flank pain and difficulty rising from a seated position. HPI: The patient is a 49-year-old female with a history of muscle spasms, presenting for evaluation of acute left-sided back pain following a fall. Acute Left-Sided Back Pain: - Onset Wednesday after slipping and falling on the front porch while it was raining. - Attempted to catch herself with her left arm, resulting in a pulling sensation on the left side of her back. - Initially, pain was mild, but worsened significantly by Wednesday, localized to the left flank area. - Currently experiencing severe pain, making it difficult to get up and down; unable to stand up from the toilet without assistance. - Describes the pain as a pulled muscle sensation. - Denies numbness or tingling in the legs. - Using a heating pad and alternating Tylenol and ibuprofen for pain management. - Taking Baclofen 10 mg TID and Lyrica for chronic muscle spasms. - Denies visible bruising due to a permanent purplish-black discoloration on the lower back from nerve endings. - Denies any known trauma or injury to the ribs or internal organs during the fall. - Denies any history of diabetes or current kidney issues; has a history of kidney stones, but none in the past 15 years. ROS: Respiratory: (+) pain with inspiration Musculoskeletal: (+) left flank/back pain, (+) left paraspinal tenderness, (+) left paraspinal swelling, (+) limited mobility with standing Neurological: (-) lower extremity numbness, (-) lower extremity tingling VIDEO EXAM: General: No acute distress. Back: Tenderness to palpation, swelling on the left side, hyperpigmented area across the lower back. DUE TO PRIOR USE OF HEATING PAD TROUBLES GETTING UP FROM SITTING DUE TO PAIN RESULTS: ASSESSMENT AND PLAN: 1. Fall, initial encounter (W19.XXXA) 2. Muscle strain (T14.8XXA) 3. Flank pain (R10.9) 4. Upper back pain (M54.9) - Acute left-sided back strain following a fall on Wednesday; no direct impact or trauma reported. - No signs of internal injury, rib fracture, or radiculopathy; pain localized to left flank and upper back, worsened over several days. - Currently taking baclofen 10 mg TID, alternating acetaminophen and ibuprofen 200 mg (2 tablets at a time), and using topical Icy Hot spray. - Advised to increase ibuprofen to 600 mg (3 tablets) every 8 hours as needed, not to exceed 2400 mg/day; may continue acetaminophen up to 1000 mg every 6 hours as needed. - Continue rest, heat, and ice application; avoid activities that exacerbate pain. - Follow-up in-person appointment on Wednesday for further assessment and consideration of imaging if no improvement. RICE-. Rest and elevate the affected painful area. Apply cold compresses intermittently. As pain recedes, begin normal activities slowly as tolerated. Call if symptoms persist. I have communicated my name and active licensure. The patient's identity and physical location were verified at the time of this visit. Either the patient or their legal customer relations representative has been informed of the risks and benefits of -- and alternatives to -- treatment through a remote evaluation and consents to proceed with the evaluation remotely. IF YOUR SYMPTOMS PERSIST OR WORSENING IN THE NEXT 21 DAYS THEN PLEASE FOLLOW UP WITH YOUR PCP - Red flags discussed for need for in person care - All questions answered Rosa Doss DNP, MAKEUP SALES CONSULTANT-TELEGRAPH MESSENGER [facility] Differential Diagnoses - MUSCLE STRAIN is more likely for the following reason(s): suggested by HANDP - FALL is more likely for the following reason(s): suggested by [facility]P - FLANK/ BACK PAIN is more likely for the following reason(s): suggested by HANDP Disposition The patient was discharged. The following prescription medication(s) were considered but ultimately not given after discussion with patient/family: pain medication and other (see comments) Reasons for not prescribing include the following: NOT SURE STEROIDS WOULD BE HELPFUL, OTC medications appropriate for pain. OTC Medications were advised: MOTRIN TYLENOL [facility] 02-01-2025 Note HNO ID: [id number] Author: ?, ?, ? Service: ? Author Type: ? Type: Progress Notes Filed: 02/01/2025 11:38 Note Text: Patient was on billing list since 08/2024. Message that this was returned has been relayed to team manager Ewa, who will document the return so charges can be reversed and eventually remove from the billing excel sheet. Sent Myc to inform patient kit was receved in office. [facility] 01-30-2025 Note HNO ID: [id number] Author: ?, ?, ? Service: ? Author Type: ? Type: Progress Notes Filed: 01/30/2025 09:20 Note Text: Sleep Study Check-In Documentation Date: January 30, 2025 Name: Nabor Herrera Comments: HST was returned in work order. Study did not occur. Device was blank will tori Spaulding [facility] 12-20-2024 Telephone encounter Note Letter sent to patient to contact us regard this encounter. Candice Shipman LPN [facility] 12-20-2024 Miscellaneous Notes Letter sent to patient to contact us regard this encounter. Candice Shipman LPN Message left for patient to see if patient wanted to continue with the lyrica or see if another medication would be approved in place of the Aimovig that was denied? Please advise. Candice Shipman LPN When I spoke with patient advised her of approval and denial. Told her to follow up with pharmacy for ubrelvy and once we know how we are proceeding with the preventative medication will let her know. She voiced understanding. Candice Shipman LPN Aimovig PA denied. Forwarding to provider for review. Candice Shipman LPN Images from the original note were not included. Received approval for Ubrelvy. Contacted patient to advise her to follow up with pharmacy on medication. Candice Shipman LPN Submitted PA for both Aimovig 70 mg/ml auto injector and [id number] mg via EPIC. Will watch for determinations. Candice Shipman LPN documented in this encounter [facility] 12-12-2024 Note HNO ID: [id number] Author: ?, ?, ? Service: ? Author Type: ? Type: Progress Notes Filed: 12/12/2024 15:29 Note Text: Sent ARPU message. [facility] 12-11-2024 Telephone encounter Note Message left for patient to see if patient wanted to continue with the lyrica or see if another medication would be approved in place of the Aimovig that was denied? Please advise. Candice Shipman LPN [facility] 12-07-2024 Telephone encounter Note When I spoke with patient advised her of approval and denial. Told her to follow up with pharmacy for ubrelvy and once we know how we are proceeding with the preventative medication will let her know. She voiced understanding. Candice Shipman LPN [facility] 12-07-2024 Telephone encounter Note Aimovig PA denied. Forwarding to provider for review. Candice Shipman LPN [facility] 12-07-2024 Telephone encounter Note Images from the original note were not included. Received approval for Ubrelvy. Contacted patient to advise her to follow up with pharmacy on medication. Candice Shipman LPN [facility] 12-07-2024 Telephone encounter Note Submitted PA for both Aimovig 70 mg/ml auto injector and [id number] mg via EPIC. Will watch for determinations. Candice Shipman LPN [facility] 12-06-2024 Instructions Alix Douglas PA-C - 12/06/2024 3:15 PM EDT Will try aimovig injection as a preventative. Will try lyrica 25mg twice daily for headaches Will try ubrelvy 100mg with start of headache Follow up in three months documented in this encounter [facility] 12-06-2024 Note HNO ID: [id number] Author: ALIX DOUGLAS PA-C Service: ? Author Type: Physician Poured Wall Foreman Type: Progress Notes Filed: 12/06/2024 15:32 Note Text: [facility] Follow up CC: Headache Follow up Last Visit: 08/16/24 Assessment AND Plan: Nabor Herrera is a 49 year old female with a history of pulmonary embolism, DVT, migraine, schizoaffective disorder, bipolar 1, nephrolithiasis. Her examination demonstrates no neurologic deficits. Patient with chronic headaches for years, previously managed through primary care and neurology. Notes at one point she was well managed on Aimovig but she lost insurance. Notes now she is having daily migrainous headaches, taking Tylenol and Imitrex daily. Headaches are migrainous in description but likely combination of medication overuse headache as well. No new symptoms that would warrant additional workup at this time, no changes to the headache and presentation. No autonomic features, new onset with Valsalva, position change or exertion. Notes that she just saw her eye doctor and had a dilated exam with updated prescription. Has new bifocals on today. Was on topiramate from primary care but notes history of kidney stones and has had kidney stones since being on this medication. Will have her stop this medication. Additionally, has history of DVT and pulmonary embolism so we will avoid Imitrex at this time. Discussed starting Nurtec for abortive relief and patient is amenable. Does note that she will need something for the next month, discussed only refilling for 1 more month and the increased risk for clotting, patient agrees and understands. For abortive relief, discussed preventatives including restarting an injectable and patient would like to restart injectable as it was very effective for her. Ajovy is on her formulary so we will send this into her pharmacy. Encouraged conservative therapy as well. Additionally, patient with signs and symptoms of sleep apnea, has had issues with sleep her whole life but is now experiencing more morning headaches, frequent awakenings in the nighttime and dry mouth. Is unsure if she snores. Will order home sleep study to evaluate for ANNALISA. Patient agreeable to treatment plan of care at this time, questions were answered. Patient to follow-up in 4 months. Beverly was seen today for new patient. Diagnoses and all orders for this visit: Migraine without aura and with status migrainosus, not intractable - CONSULT TO NEUROLOGY - fremanezumab-vfrm 225 mg/1.5 mL subcutaneous syringe (AJOVY); Inject 1.5 mL subcutaneously once every month. Do not shake. - rimegepant (NURTEC ODT) 75 mg disintegrating tablet; Take 1 tablet by mouth once daily as needed. ANNALISA (obstructive sleep apnea) - HOME SLEEP APNEA TEST (HSAT); Future Other orders - SUMAtriptan (IMITREX) 50 mg tablet; Take 1 tablet by mouth as needed for migraine headache (see administration instructions). at onset of headache. May repeat after 2 hours. All options for treatment discussed. Preventative: Ajovy Abortive: Nurtec Imaging: Labs: Sleep study She should return to see me in 4 months. Today: Patient is here for headache/migraine follow up. Last seen on 08/16/24 for BORDEN, MOH. Nurtec and ajovy. Ordered HSAT did not do. Since last visit headaches have not changed. Notes that the Ajovy was too expensive and the coupon card did not work. Nurtec was not helpful at all. Dr. Brower was able to refill her Imitrex, does help her. Notes that the pain in her neck is getting worse, but she is resistant on going to pain management because she does not want injections. Current Headache treatment Preventative: ajovy Abortive: nurtec Medications effective? no # of doses of abortive medications per month: 10 (Imitrex) otal headache days per month: daily Total headache attacks per month: daily Headache free days: No Duration of attacks: hours to multiple days Severity of headaches? Moderate to severe Onset to Peak: gradual and sudden Location: R sided usually. Aura: sometimes with severe gets a black spot/tunnel vision on the left eye Prodrome:none. Accompanying symptoms: photophobia, phonophobia, osmophobia, nausea, vomiting, confusion, neck pain. Quality:throbbing and piercing/stabbing. Worse with activity: Yes Triggers: bright lights and odors. Cough/sneeze/valsalva as trigger: sometimes. Positional changes: No Most common time of day for headache to begin:upon awakening. Time missed from work or school: occasionally Tobacco Use: Yes: Half a pack Alcohol Use: No Caffeine:Yes: 9 Pepsi's a day Prior Therapies TPM Imitrex Elavil Seroquel Gabapentin Lamictal Propranolol Sertraline Maxalt Emgality Nurtec Lyrica- 10+ years ago for mood The patient's prior records were reviewed including and lab testing, imaging, and procedures done since their last visit with me. (more content not included)... [facility] 12-06-2024 History of Presen t illness Narrative Images from the original note were not included. [facility] Follow up CC: Headache Follow up Last Visit: 08/16/24 Assessment & Plan: Nabor Herrera is a 49 year old female with a history of pulmonary embolism, DVT, migraine, schizoaffective disorder, bipolar 1, nephrolithiasis. Her examination demonstrates no neurologic deficits. Patient with chronic headaches for years, previously managed through primary care and neurology. Notes at one point she was well managed on Aimovig but she lost insurance. Notes now she is having daily migrainous headaches, taking Tylenol and Imitrex daily. Headaches are migrainous in description but likely combination of medication overuse headache as well. No new symptoms that would warrant additional workup at this time, no changes to the headache and presentation. No autonomic features, new onset with Valsalva, position change or exertion. Notes that she just saw her eye doctor and had a dilated exam with updated prescription. Has new bifocals on today. Was on topiramate from primary care but notes history of kidney stones and has had kidney stones since being on this medication. Will have her stop this medication. Additionally, has history of DVT and pulmonary embolism so we will avoid Imitrex at this time. Discussed starting Nurtec for abortive relief and patient is amenable. Does note that she will need something for the next month, discussed only refilling for 1 more month and the increased risk for clotting, patient agrees and understands. For abortive relief, discussed preventatives including restarting an injectable and patient would like to restart injectable as it was very effective for her. Ajovy is on her formulary so we will send this into her pharmacy. Encouraged conservative therapy as well. Additionally, patient with signs and symptoms of sleep apnea, has had issues with sleep her whole life but is now experiencing more morning headaches, frequent awakenings in the nighttime and dry mouth. Is unsure if she snores. Will order home sleep study to evaluate for ANNALISA. Patient agreeable to treatment plan of care at this time, questions were answered. Patient to follow-up in 4 months. Beverly was seen today for new patient. Diagnoses and all orders for this visit: Migraine without aura and with status migrainosus, not intractable - CONSULT TO NEUROLOGY - fremanezumab-vfrm 225 mg/1.5 mL subcutaneous syringe (AJOVY); Inject 1.5 mL subcutaneously once every month. Do not shake. - rimegepant (NURTEC ODT) 75 mg disintegrating tablet; Take 1 tablet by mouth once daily as needed. ANNALISA (obstructive sleep apnea) - HOME SLEEP APNEA TEST (HSAT); Future Other orders - SUMAtriptan (IMITREX) 50 mg tablet; Take 1 tablet by mouth as needed for migraine headache (see administration instructions). at onset of headache. May repeat after 2 hours. All options for treatment discussed. Preventative: Ajovy Abortive: Nurtec Imaging: Labs: Sleep study She should return to see me in 4 months. Today: Patient is here for headache/migraine follow up. Last seen on 08/16/24 for BORDEN, MOH. Nurtec and ajovy. Ordered HSAT did not do. Since last visit headaches have not changed. Notes that the Ajovy was too expensive and the coupon card did not work. Nurtec was not helpful at all. Dr. Brower was able to refill her Imitrex, does help her. Notes that the pain in her neck is getting worse, but she is resistant on going to pain management because she does not want injections. Current Headache treatment Preventative: ajovy Abortive: nurtec Medications effective? no # of doses of abortive medications per month: 10 (Imitrex) otal headache days per month: daily Total headache attacks per month: daily Headache free days: No Duration of attacks: hours to multiple days Severity of headaches? Moderate to severe Onset to Peak: gradual and sudden Location: R sided usually. Aura: sometimes with severe gets a black spot/tunnel vision on the left eye Prodrome:none. Accompanying symptoms: photophobia, phonophobia, osmophobia, nausea, vomiting, confusion, neck pain. Quality:throbbing and piercing/stabbing. Worse with activity: Yes Triggers: bright lights and odors. Cough/sneeze/valsalva as trigger: sometimes. Positional changes: No Most common time of day for headache to begin:upon awakening. Time missed from work or school: occasionally Tobacco Use: Yes: Half a pack Alcohol Use: No Caffeine:Yes: 9 Pepsi's a day Prior Therapies TPM Imitrex Elavil Seroquel Gabapentin Lamictal Propranolol Sertraline Maxalt Emgality Nurtec Lyrica- 10+ years ago for mood The patient's prior records were reviewed including and lab testing, imaging, and procedures done since their last visit with me. Review of symptoms including constitutional, eyes, ENT, neck, respiratory, cardiovascular, GI, , musculoskeletal, hematologic, oncologic, endocrine, and psychiatric categories is unchanged. No new details in the family history or social history were offered by the patient. PAST MEDICAL HISTORY Diagnosis Date Bipolar 1 disorder ([facility]) [facility] psych [facility] DVT (deep venous thrombosis) ([facility]) 2006 Marijuana use Migraine with aura PE (pulmonary embolism) 2006 PTSD (post-traumatic stress disorder) sees psych at [facility] Schizoaffective disorder ([facility]) sees psych at [facility] Urinary tract infection, site not specified 2003 PAST SURGICAL HISTORY Procedure Laterality Date DELIVERY ONLY x 3 , low cervical LIG/TRNSXJ FLP TUBE ABDL/VAG APPR UNI/BI 2001 Tubal ligation PAST SURGICAL HISTORY OF Left 2017 I&D left leg wound TOTAL ABDOMINAL HYSTERECT W/WO RMVL TUBE OVARY -says somethign cancerous or precancerous ALLERGIES Allergen Reactions Penicillins Unknown Vicodin [Hydrocodon* GI Upset States that was a reaction with compazine not an allergy. Current Medications: SUMAtriptan (IMITREX) 100 mg tablet Take 1 tablet by mouth as needed for migraine headache (see administration instructions). baclofen 10 mg tablet Take 1 tablet by mouth three times a day. triamcinolone acetonide (KENALOG) 0.1 % cream Apply 1 application to affected area two times a day. Do not use for more than two weeks at a time. rimegepant (NURTEC ODT) 75 mg disintegrating tablet Take 1 tablet by mouth once daily as needed. albuterol (PROVENTIL) 2.5 mg /3 mL (0.083 %) nebulizer solution Use 3 mL via nebulizer every 6 hours as needed for wheezing/shortness of breath. Use over 5-15minutes. albuterol HFA (PROVENTIL HFA, VENTOLIN HFA) 90 mcg/actuation inhaler Inhale 2 Puffs as instructed every 6 hours as needed for Wheezing/Shortness of Breath. erenumab-aooe (AIMOVIG AUTOINJECTOR) 70 mg/mL auto-injector Inject 1 mL subcutaneously once every month. Do not shake. ubrogepant (UBRELVY) 100 mg tablet Take 1 tablet by mouth as directed. Take 1 tablet PO as needed for acute treatment of migraine. May repeat second dose after 2 hours if incomplete response. Do not exceed 200 mg daily pregabalin (LYRICA) 25 mg capsule Take 1 capsule by mouth two times a day for 90 days. SUMAtriptan (IMITREX) 50 mg tablet Take 1 tablet by mouth as needed for migraine headache (see administration instructions). at onset of headache. May repeat after 2 hours. hydrOXYzine pamoate (VISTARIL) 25 mg capsule Take 1 capsule by mouth four times daily. ondansetron orally disintegrating (ZOFRAN ODT) 4 mg disintegrating tablet Take 1 tablet by mouth every 6 hours as needed for nausea/vomiting. ibuprofen (MOTRIN) 800 mg tablet Take 1 tablet by mouth every 8 hours as needed for pain. Take with food. Studies to Review: No New Health Issues: No New Social History: No New Family History: No REVIEW OF SYSTEMS: GENERAL:No weight loss, malaise or fevers. HEENT:no changes to hearing or vision NECK:negative for neck pain, swelling. RESPIRATORY: Negative for cough, wheezing or shortness of breath. CARDIOVASCULAR: Negative for chest pain, leg swelling or palpitations. GASTROINTESTINAL: Negative for abdominal discomfort, blood in stools or black stools or change in bowel habits GENITOURINARY: No history of dysuria, frequency or incontinence MUSKULOSKELETAL: Negative for joint pain or swelling, back pain or muscle pain. SKIN:Negative for lesions, rash, and itching. HEMATOLOGIC/LYMPHATIC/IMMUNOLOGI C:Negative for prolonged bleeding, bruising easily or swollen nodes. ENDOCRINE: Negative for cold or heat intolerance, polyuria, polydipsia NEUROLOGIC:See HPI PHYSICAL EXAMINATION: BP 147/84 Pulse 73 Resp 16 Wt 91.2 kg (201 lb) LMP 10/13/2006 SpO2 93% BMI 30.56 kg/m General: well appearing, in no acute distress, alert, HEENT: Normocephalic/atraumatic., Skin: Color, texture, turgor normal. No rashes or lesions, Lungs: Breathing comfortably, Neurological Examination: Cognition: The patient is alert and oriented times three Lucid and organized in conversation Able to tell detailed medical hx Speech is Normal in fluency volume and clarity Content and Syntax: Normal Comprehension: Normal, able to follow several step commands Cranial Nerves: Pupils are equal and reactive to light. Pupils normal in size Extraocular movements are grossly intact Good saccades and pursuits No nystagmus Hearing intact Good upgaze Visual patterson are full to confrontation. Facial, motor and sensory exam is symmetric Equal v1,V2, V3 Tongue is in midline. No tongue fasciculation. Palate is upgoing bilaterally SCM and trapezius are full. Shoulder shrug intact Normal tone and strength. Normal coordination. Normal gait. Impression: ASSESSMENT/PLAN: 1. Migraine without aura and with status migrainosus, not intractable - ICD9: 346.12, ICD10: G43.001 Patient with no change in headaches. Ajovy was too expensive for her as a preventative, notes previously Emgality was very effective for her. Will try Aimovig. Discussed Botox with patient deferring at this time. Did discuss Lyrica as well and would like to try low-dose at this as Aimovig may take a few weeks to get approved. Has been on Lyrica in the past for mood but is unsure if it was ever helpful for her headaches. For abortive relief, Nurtec was not effective, will try Ubrelvy. Discussed I would like to stay from triptans if possible due to her history of PE however, notes Imitrex is only thing helping her right now she needs to go back to work. Discussed at length the risks and patient is amenable. Will refill Imitrex 100 mg to take with onset of headache. No new symptoms that would warrant additional workup at this time. Patient to follow-up in 3 months. Plan: All options for treatment discussed. Preventative: Lyrica 25 mg twice daily, Aimovig Abortive: Ubrelvy Follow-up: 3 months I spent a total of 30 minutes on the date of the service which included preparing to see the patient, [id number] patient care, completing clinical documentation, obtaining and/or reviewing separately obtained history, performing a medically appropriate examination, counseling and educating the patient/family/caregiver, and ordering medications, tests, or procedures. [facility] website checked and validated. All prescriptions have been APPROPRIATELY filled. No suspicious activity was identified. 12/06/2024 by BASILIO Bone PA-C General Neurology [address] [place] [address]. [id number] Appointment: [phone] 12/06/2024 PROMIS [facility] Health Physical Health Summary Physical health: Poor Everyday physical activity, ability: Completely Fatigue: Moderate Pain level: 6 General health: Fair Social activities/roles, ability: Fair Physical Health T-Score 39.8 (Fair) Physical Health Percentile 15 PROMIS Global Health Mental Health Summary Quality of life: Good Mental health (mood,thinking): Poor Social satisfaction: Poor Emotional problems (anxious,depressed): Often Mental Health T-Score 31.3 (Fair) Mental Health Percentile 3 Percentiles provide an indication of how a patient's score ranks in relation to the [place] general population. > 31st percentile is within normal limits or better *< 31st percentile is at least SD worse than population, which may be clinically relevant < 16th percentile is at least 1 SD worse than population and warrants attention documented in this encounter [facility] 12-06-2024 Note HNO ID: [id number] Author: CANDICE SHIPMAN LPN Service: ? Author Type: LICENSED NURSE Type: Progress Notes Filed: 12/06/2024 15:32 Note Text: 12/06/2024 PROMIS Global Health Physical Health Summary Physical health: Poor Everyday physical activity, ability: Completely Fatigue: Moderate Pain level: 6 General health: Fair Social activities/roles, ability: Fair Physical Health T-Score 39.8 (Fair) Physical Health Percentile 15 PROMIS Global Health Mental Health Summary Quality of life: Good Mental health (mood,thinking): Poor Social satisfaction: Poor Emotional problems (anxious,depressed): Often Mental Health T-Score 31.3 (Fair) Mental Health Percentile 3 Percentiles provide an indication of how a patient's score ranks in relation to the [place] general population. > 31st percentile is within normal limits or better *< 31st percentile is at least ? SD worse than population, which may be clinically relevant < 16th percentile is at least 1 SD worse than population and warrants attention [facility] 07-16-2025 Telephone encounter Note Prescription Refill Information The patient has been identified by name and date of : Yes Caregiver verified no other encounters exist for this prescription request: Yes Caregiver confirmed with patient/requestor that no other refills are due, in the near future, with this provider at this time: Yes The last office visit in the department: 07/19/24 Does the patient have a future office visit with this provider/department: Yes, 01/23/25 Requested Prescriptions Pending Prescriptions Disp Refills SUMAtriptan (IMITREX) 100 mg tablet 9 tablet 2 Sig: Take 1 tablet by mouth as needed for migraine headache (see administration instructions). Patient Comment: I was able to get an appt w neurologist but not till December 06 Corey Card LPN November 22, 2024 12:07 PM [facility] 11-22-2024 Miscellaneous Notes Prescription Refill Information The patient has been identified by name and date of : Yes Caregiver verified no other encounters exist for this prescription request: Yes Caregiver confirmed with patient/requestor that no other refills are due, in the near future, with this provider at this time: Yes The last office visit in the department: 07/19/24 Does the patient have a future office visit with this provider/department: Yes, 01/23/25 Requested Prescriptions Pending Prescriptions Disp Refills SUMAtriptan (IMITREX) 100 mg tablet 9 tablet 2 Sig: Take 1 tablet by mouth as needed for migraine headache (see administration instructions). Patient Comment: I was able to get an appt w neurologist but not till December 06 Corey Card LPN November 22, 2024 12:07 PM documented in this encounter [facility] 11-13-2024 Telephone encounter Note Prescription Refill Information The patient has been identified by name and date of : Yes Caregiver verified no other encounters exist for this prescription request: Yes Caregiver confirmed with patient/requestor that no other refills are due, in the near future, with this provider at this time: No The last office visit in the department: 07/19/24 Does the patient have a future office visit with this provider/department: Yes Requested Prescriptions Pending Prescriptions Disp Refills baclofen 10 mg tablet 90 tablet 2 Sig: Take 1 tablet by mouth three times a day. Vania Mendez MA November 13, 2024 3:18 PM [facility] 11-13-2024 Miscellaneous Notes Prescription Refill Information The patient has been identified by name and date of : Yes Caregiver verified no other encounters exist for this prescription request: Yes Caregiver confirmed with patient/requestor that no other refills are due, in the near future, with this provider at this time: No The last office visit in the department: 07/19/24 Does the patient have a future office visit with this provider/department: Yes Requested Prescriptions Pending Prescriptions Disp Refills baclofen 10 mg tablet 90 tablet 2 Sig: Take 1 tablet by mouth three times a day. Vania Mendez MA November 13, 2024 3:18 PM documented in this encounter [facility] 11-09-2024 Note HNO ID: [id number] Author: ?, ?, ? Service: ? Author Type: ? Type: Progress Notes Filed: 11/09/2024 11:39 Note Text: Waiting on HSAT from postal service. [facility] 10-25-2024 Note HNO ID: [id number] Author: ?, ?, ? Service: ? Author Type: ? Type: Progress Notes Filed: 10/25/2024 16:32 Note Text: [place] [facility] [place] [facility] 10-18-2024 Note HNO ID: [id number] Author: ?, ?, ? Service: ? Author Type: ? Type: Progress Notes Filed: 10/18/2024 21:33 Note Text: Patient called and stated she did not open, HSAT it was on her porch and she took it to [employer] [facility] [address] [place] [address] the day after she received it, stated she did not know it was suppose to be sent back [employer] only. She stated she is trying to learn how to use MyChart, and if she need to be contacted please sent a text message and she will respond. [facility] 10-18-2024 Note HNO ID: [id number] Author: ?, ?, ? Service: ? Author Type: ? Type: Progress Notes Filed: 10/18/2024 16:52 Note Text: Attempted to reach each number on file, the patients twice. No answer. Mb full. Lvm again on daughter's line. Called mother of patient. Spoke with her and relayed the message in full detailed and provided office call back number. Awaiting a response/return of hsat. [facility] 10-12-2024 Note HNO ID: [id number] Author: ?, ?, ? Service: ? Author Type: ? Type: Progress Notes Filed: 10/12/2024 10:24 Note Text: Pt on billing list. MYC message sent yesterday and has not been read. Called pt and unable to LVM as VM is full [facility] 10-11-2024 Note HNO ID: [id number] Author: ?, ?, ? Service: ? Author Type: ? Type: Progress Notes Filed: 10/11/2024 17:07 Note Text: Called patient number on file twice. First call went to an automated msg stating caller is declining to receive inbound calls at the time. Second call rung for awhile before going to but no vm could be left. Attempted to daughter on file, no answer. Lvm at that number, requesting to have patient return HSAT and call back to office due to billing fee. Sent myc to patient. [facility] 10-07-2024 Note HNO ID: [id number] Author: ?, ?, ? Service: ? Author Type: ? Type: Progress Notes Filed: 10/07/2024 07:21 Note Text: Called patient to retrieve package. No answer. Unable to Lvm. Sent MC instead. 10/07 [facility] 10-05-2024 Note HNO ID: [id number] Author: ?, ?, ? Service: ? Author Type: ? Type: Progress Notes Filed: 10/05/2024 14:33 Note Text: Called pt and unable to LVM as VM is full. Sent MYC [facility] 09-28-2024 Note HNO ID: [id number] Author: ?, ?, ? Service: ? Author Type: ? Type: Progress Notes Filed: 09/28/2024 09:12 Note Text: Called pt and unable to LVM as VM is full. Sent MYC to return device back to office. [facility] 09-25-2024 Note HNO ID: [id number] Author: ?, ?, ? Service: ? Author Type: ? Type: Progress Notes Filed: 09/25/2024 11:36 Note Text: Unable to LVM for device return. Pt on billing list. Sent MC message. [facility] 09-25-2024 Telephone encounter Note TC to patient as she has not read MC message. Patient was very short with staff stating she is not using the medication and told provider previously she was not going to pay for medication. Tried to explain coupon card/insurance but patient became angry, stating that no one would listen to her that it is not a coupon card. Before this staff could explain further, patient hung up. STEPHANIE Payan [facility] 09-25-2024 Miscellaneous Notes TC to patient as she has not read MC message. Patient was very short with staff stating she is not using the medication and told provider previously she was not going to pay for medication. Tried to explain coupon card/insurance but patient became angry, stating that no one would listen to her that it is not a coupon card. Before this staff could explain further, patient hung up. STEPHANIE Payan TC to patient with no answer. Unable to leave VM d/t mailbox is full. Veronique STANTON was approved by insurance on 09/07/2024. Please see encounter 09/04/2024. TC to [facility] to inquire why patient is not able to have this medication filled. Pharmacist states copay for patients insurance is $286.74 after prior authorization approval. Patient is not able to use coupon card d/t having government funded insurance. STEPHANIE Payan documented in this encounter [facility] 09-21-2024 Note HNO ID: [id number] Author: ?, ?, ? Service: ? Author Type: ? Type: Progress Notes Filed: 09/21/2024 14:43 Note Text: Called pt and unable to LVM as VM is full Pt read previous [facility] message. Sent another [facility] 09-20-2024 Telephone encounter Note TC to patient with no answer. Unable to leave VM d/t mailbox is full. Veronique STANTON was approved by insurance on 09/07/2024. Please see encounter 09/04/2024. TC to [facility] to inquire why patient is not able to have this medication filled. Pharmacist states copay for patients insurance is $286.74 after prior authorization approval. Patient is not able to use coupon card d/t having government funded insurance. STEPHANIE Payan [facility] 09-15-2024 Note HNO ID: [id number] Author: ?, ?, ? Service: ? Author Type: ? Type: Progress Notes Filed: 09/15/2024 21:13 Note Text: Unable to LVM [facility] 09-14-2024 Note HNO ID: [id number] Author: ?, ?, ? Service: ? Author Type: ? Type: Progress Notes Filed: 09/14/2024 16:01 Note Text: Called pt and unable to LVM as VM is full. Sent [facility] 09-14-2024 Telephone encounter Note Please see request from pt. Pt last seen in this office 07/19/24 for migraines, was referred to Neurology. Pt was prescribed Ajovy and Nurtec, see message with approval 09/04/24. Pt is having issues with pricing per recent [employer] messages. Pt is Rx'd Imitrex 50 mg from Neuro and 100 mg from PCP. Covering Provider helping out. Do you want to Rx medication or have covering Provider Rx? Rx pended. Ana Batres MA [facility] 09-14-2024 Miscellaneous Notes Please see request from pt. Pt last seen in this office 07/19/24 for migraines, was referred to Neurology. Pt was prescribed Ajovy and Nurtec, see message with approval 09/04/24. Pt is having issues with pricing per recent [employer] messages. Pt is Rx'd Imitrex 50 mg from Neuro and 100 mg from PCP. Covering Provider helping out. Do you want to Rx medication or have covering Provider Rx? Rx pended. Ana Batres MA documented in this encounter [facility] 09-12-2024 Note HNO ID: [id number] Author: ?, ?, ? Service: ? Author Type: ? Type: Progress Notes Filed: 09/12/2024 12:54 Note Text: Sent mychart asking patiently to return device. Unable to lvm because mailbox was full. [facility] 09-12-2024 Telephone encounter Note Pt advised she would need to discuss with Neurologist. Vania Mendez MA [facility] 09-12-2024 Miscellaneous Notes Pt advised she would need to discuss with Neurologist. Vania Mendez MA documented in this encounter [facility] 09-07-2024 Telephone encounter Note Jamal PA has been approved until 12/08/2024. Veronique STANTON has been approved until 03/10/2025. TC to patient with no answer, unable to leave d/t mailbox is full. MC message sent. STEPHANIE Payan [facility] 09-07-2024 Miscellaneous Notes Jamal PA has been approved until 12/08/2024. Veronique PA has been approved until 03/10/2025. TC to patient with no answer, unable to leave d/t mailbox is full. MC message sent. STEPHANIE Payan Questions answered after deadline. PA re-initiated at this time. Please watch for additional questions. STEPHANIE Payan documented in this encounter [facility] 09-07-2024 Telephone encounter Note Questions answered after deadline. PA re-initiated at this time. Please watch for additional questions. STEPHANIE Payan [facility] 09-04-2024 Note HNO ID: [id number] Author: ?, ?, ? Service: ? Author Type: ? Type: Progress Notes Filed: 09/04/2024 16:32 Note Text: [facility] # [id number] , date shipped out 09-04-24 [employer] only Tracking mailout: [id number] Tracking return: [id number] [facility] 09-03-2024 Note HNO ID: [id number] Author: DASHAWN GONZALES APRN.TELEGRAPH MESSENGER Service: ? Author Type: ? Type: Progress Notes Filed: 09/04/2024 06:47 Note Text: September 03, 2024 Standing PSG Orders signed in the last 90 days None Future PSG Orders signed in the last 90 days Ordered Auth. provider HOME SLEEP APNEA TEST (HSAT) [[id number]] 08/16/24 Alix Douglas PA-C Assoc. diagnoses: ANNALISA (obstructive sleep apnea) [G47.33] Q: Indications: A: Obstructive sleep apnea Q: STOP-BANG conditions - Select All That Apply: A: SNORING that is loud or disruptive A2: TIREDNESS, fatigue or sleepiness during the day A3: OBSERVED sleep apnea Q: Current use of supplemental oxygen during sleep period?: A: No Q: Add supplemental oxygen if needed per sleep lab policy?: A: Yes All Prior Sleep Studies (past 365 days) 08/16/2024 14:59 Sleep Studies HOME SLEEP APNEA TEST (HSAT) HOME SLEEP APNEA TEST (HSAT) Order Status: Ordered, Future Expires: 08/16/25 BMI Readings from Last 2 Encounters: 08/16/24 : 31.66 kg/m? 07/19/24 : 31.47 kg/m? PAST MEDICAL HISTORY Diagnosis Date Bipolar 1 disorder ([facility]) sees psych at [facility] DVT (deep venous thrombosis) ([facility]) 2006 Marijuana use Migraine with aura PE (pulmonary embolism) 2006 PTSD (post-traumatic stress disorder) sees psych at [facility] Schizoaffective disorder ([facility]) sees psych at [facility] Urinary tract infection, site not specified 2003 The medical record was reviewed to determine if the proposed sleep study conforms to the [facility] Practice Parameters for the Indications for Polysomnography and Related Procedures, or if the sleep study is indicated for other reasons. Indications for study: ANNALISA suspected without comorbid medical or sleep disorders Sleep study to be performed: Home Sleep Apnea Test (HSAT) Special instructions: None-follow laboratory protocol Ewa Small - Sleep Medicine Staff Note: I have read the above protocol, edited as needed, and agree to the plan. Dashawn Gonzales APRN.TELEGRAPH MESSENGER 6:47 AM, 09/04/2024 [facility] 08-31-2024 Note HNO ID: [id number] Author: ?, ?, ? Service: ? Author Type: ? Type: Progress Notes Filed: 09/04/2024 06:47 Note Text: August 31, 2024 An order has been received for Home Sleep Apnea Test (HSAT) from Alix Masterson PA-C , a B. [facility] Staff. Visit prep complete. Comments :No The sleep study is scheduled for 09-05-24. Insurance: Payor: JAYME / Plan: BLUE CARD PPO OOS / Product Type: PPO / Payer/Plan Subscr Sex Relation Sub. Ins. ID Effective Group Num 1. JAYME - INDY* NABOR HERRERA* 1975 Female Self [id number]* 05/10/24 [id number] [facility] 08-16-2024 Instructions Alix Douglas PA-C - 08/16/2024 3:00 PM EDT Preventative: Ajovy once a month Abortive: Will start nurtec 75mg with start of headache Sleep study to look for sleep apnea Follow up in 4 months Headache Preventive Treatment: Please keep in mind that it takes 4-6 weeks for the medication to start working well and 2-3 months at the appropriate dose before deciding if it will be useful or not. If it is not helping at all by this time, then we will discuss other medications to try. Supplements may take 3-6 months until you see full effect. Natural supplements: Magnesium Oxide 500 mg at bed Coenzyme Q10 300 mg in AM Vitamin B2- 200 mg twice a day Feverfew 50 mg twice a day Vitamins and herbs that show potential Magnesium: Magnesium (250 mg twice a day or 500 mg at bed) has a relaxant effect on smooth muscles such as blood vessels. Individuals suffering from frequent or daily headache usually have low magnesium levels which can be increase with daily supplementation of 400-750 mg. Three trials found 40-90% average headache reduction when used as a preventative. Magnesium also demonstrated the benefit in menstrually related migraine. Magnesium is part of the messenger system in the serotonin cascade and it is a good muscle relaxant. It is also useful for constipation which can be a side effect of other medications used to treat migraine. Good sources include nuts, whole grains, and tomatoes. Magnesium comes in many different forms: Magnesium glycinate is a good choice for those with a sensitive stomach who have gastrointestinal side effects such as diarrhea with other forms of magnesium. It is anecdotally also helpful with anxiety and sleep. Magnesium threonate also has low risk of gastrointestinal side effects and anecdotally helpful with cognitive function and brain fog symptoms. Magnesium malate has low gastrointestinal side effects and is reportedly more energizing and anecdotally often helpful in fibromyalgia and chronic fatigue syndrome. Magnesium citrate is one of the most studied, popular, and well-absorbed forms of magnesium. It can also be mixed easily with liquids if you can't take pills. However, it comes with a higher risk of diarrhea and gastrointestinal side effects, although this could be helpful for those with constipation. Magnesium oxide is also well studied, cheap, and often used for heartburn and indigestion. However, it is not well absorbed and can have some laxative side effects as well, so can also be helpful for constipation. Riboflavin (vitamin B 2) 200 mg twice a day. This vitamin assists nerve cells in the production of ATP a principal energy storing molecule. It is necessary for many chemical reactions in the body. There have been at least 3 clinical trials of riboflavin using 400 mg per day all of which suggested that migraine frequency can be decreased. All 3 trials showed significant improvement in over half of migraine sufferers. The supplement is found in bread, cereal, milk, meat, and poultry. Most Americans get more riboflavin than the recommended daily allowance, however riboflavin deficiency is not necessary for the supplements to help prevent headache. Feverfew: Feverfew is a common garden herb [place] to [place] and popular in [place] as a treatment for disorders typically controlled by aspirin. The mechanism of action is unknown but is believed to be related to a chemical called parthenolide which helps the body use serotonin more effectively. Serotonin helps prevent migraine and assists with resolution when it occurs. Parthenolide also inhibits the release of histamine which is linked to pain and inflammation. Consistency of active ingredients in different products can be a problem. Some formulations don't have the active ingredient (parthenolide) that prevents migraine. A parthenolide content of 0.2% is generally recommended. Typical dosage is one capsule 3 times a day. Coenzyme Q10: This is present in almost all cells in the body and is critical component for the conversion of energy. Recent studies have shown that a nutritional supplement of CoQ10 can reduce the frequency of migraine attacks by improving the energy production of cells as with riboflavin. Doses of 150 mg twice a day have been shown to be effective. Melatonin: Increasing evidence shows correlation between melatonin secretion and headache conditions. Melatonin supplementation has decreased headache intensity and duration. It is widely used as a sleep aid. Sleep is natures way of dealing with migraine. A dose of 3 mg is recommended to start for headaches including cluster headache. Higher doses up to 15 mg has been reviewed for use in Cluster headache and have been used. The rationale behind using melatonin for cluster is that many theories regarding the cause of Cluster headache center around the disruption of the normal circadian rhythm in the brain. This helps restore the normal circadian rhythm. Dominique: Dominique has a small amount of antihistamine and anti-inflammatory action which may help headache. It is primarily used for nausea and may aid in the absorption of other medications. HEADACHE DIET: Foods and beverages which may trigger migraine Note that only 20% of headache patients are food sensitive. You will know if you are food sensitive if you get a headache consistently 20 minutes to 2 hours after eating a certain food. Only cut out a food if it causes headaches, otherwise you might remove foods you enjoy! What matters most for diet is to eat a well balanced healthy diet full of vegetables and low fat protein, and to not miss meals. Chocolate, other sweets ALL cheeses except cottage and cream cheese Dairy products, yogurt, sour cream, ice cream Liver Meat extracts (Bovril, Marmite, meat tenderizers) Meats or fish which have undergone aging, fermenting, pickling or smoking. These include: Hotdogs,salami,Lox,sausage, mortadellas,smoked salmon, pepperoni, Pickled avila Pods of broad nesbitt (Dominican beans, Urdu pea pods, Kinyarwanda (phil) beans, cruz and navy beans Ripe avocado, ripe banana Yeast extracts or active yeast preparations such as Odom's or Madelin's (commercial bakes goods are permitted) Tomato based foods, pizza (lasagna, etc.) MSG (monosodium glutamate) is disguised as many things; look for these common aliases: Monopotassium glutamate Autolysed yeast Hydrolysed protein Sodium caseinate flavorings all natural preservatives Nutrasweet Avoid all other foods that convincingly provoke headaches. Headache Prevention Strategies: 1. Maintain a headache diary; learn to identify and avoid triggers. Common triggers include: Emotional triggers: Emotional/Upset family or friends Emotional/Upset occupation Business reversal/success Anticipation anxiety Crisis-serious Post-crisis periodNew job/position Physical triggers: Vacation Day Weekend Strenuous Exercise High Altitude Location New Move Menstrual Day Physical Illness Oversleep/Not enough sleep Weather changes Light: Photophobia or light sesnitivity treatment involves a balance between desensitization and reduction in overly strong input. Use dark polarized glasses outside, but not inside. Avoid bright or fluorescent light, but do not dim environment to the point that going into a normally lit room hurts. Consider FL-41 tint lenses, which reduce the most irritating wavelengths without blocking too much light. These can be obtained at [employer] or [employer]: see list above. 2. Limit use of acute treatments (xirw-osb-utilznd medications, triptans, etc.) to no more than 2 days per week or 10 days per month to prevent medication overuse headache (rebound headache). 3. Follow a regular schedule (including weekends and holidays): Don't skip meals. Eat a balanced diet. 8 hours of sleep nightly. Minimize stress. Exercise 30 minutes per day. Being overweight is associated with a 5 times increased risk of chronic migraine. Keep well hydrated and drink 6-8 glasses of water per day. 4. Initiate non-pharmacologic measures at the earliest onset of your headache. Rest and quiet environment. Relax and reduce stress. Fzhztbx6Udkcp is a free monie that can instruct you on some simple relaxtion and breathing techniques. Http://91 [employer] is a free website that provides teaching videos on relaxation. Also, there are many apps that can be downloaded for mindful relaxation. An monie called YOGA NIDRA will help walk you through mindfulness. Cold compresses. 5. Don't wait!! Take the maximum allowable dosage of prescribed medication at the first sign of migraine. 6. Compliance: Take prescribed medication regularly as directed and at the first sign of a migraine. 7. Communicate: Call your physician when problems arise, especially if your headaches change, increase in frequency/severity, or become associated with neurological symptoms (weakness, numbness, slurred speech, etc.). 8. Headache/pain management therapies: Consider various complementary methods, including medication, behavioral therapy, psychological counselling, biofeedback, massage therapy, acupuncture, dry needling, and other modalities. Such measures may reduce the need for medications. Counseling for pain management, where patients learn to function and ignore/minimize their pain, seems to work very well. 9. Recommend changing family's attention and focus away from patient's headaches. Instead, emphasize daily activities. If first question of day is 'How are your headaches/Do you have a headache today?', then patient will constantly think about headaches, thus making them worse. Goal is to re-direct attention away from headaches, toward daily activities and other distractions. 10. Helpful Websites: www.AmericanHeadacheSociety.org www.migrainetrust.org www.headaches.org www.migraine.org.uk www.achenet.org 11. HEADACHE EXPECTATIONS: There are many types of headaches, and only a rare few in which complete relief can be expected. In general, there is no cure for headache, especially migraine based headaches. There is nothing available that completely prevents headaches from occurring, breaking through, or having periodic flare-ups and fluctuations. Regardless of what you are using on a daily basis for prevention, episodic headaches should still be expected, and periods where frequency may escalate and fluctuate are unavoidable. There is no quick fix for most headaches. Furthermore, the longer you have had high frequency headaches (such as chronic daily headache), the longer it will likely take to expect any improvement. In fact, some people will never improve, regardless of how many medications or other treatments we try. Our treatment strategy is to evaluate for possible causes of your headache, although testing is usually always normal, even in cases of daily continuous headaches for years. Most types of headache such as migraine are electrical brain disorders (similar to how epilepsy is an electrical brain disorders). Therefore, there is no testing that will reveal this dysfunctional electrical circuitry such on MRI, or other testing. We try to find a medication that may help lessen the frequency and/or severity of your headaches. The goal is not to completely stop them from happening, although if that happens, great! Different people respond to different medications, and some people just don't respond to anything, so it's usually a matter of trying different options. We can not predict if or when exactly you will respond to a treatment that we provide. Preventive headache medications take 4-6 weeks to start working, and 2-3 months to see full effect, assuming you reach an effective dose. Therefore, calling or messaging frequently because you have a headache flare prior to the 3 month mila is unlikely to change anything, and unfortunately there is nothing available that will expedite this, so please try to avoid this. Our recommendation will generally be to give it adequate time first. If you are unable to wait it out for medications to work, we can also try IV infusions for some temporary relief. O In general, the best that preventive medications or other treatments (including Botox) are able to offer in migraine management (variable in other headache types) is a 50% improvement in frequency and/or severity of headache. That is our goal, and any additional benefit is considered a bonus. Some people do significantly better than this, others do not get close to this. Therefore, if your headaches are not improving by at least 3 months on your preventive strategy, contact us and we can discuss further adjustments. Keep in mind that complete headache cure is not a realistic expectation. Our Team: The nursing staff, and medical assistants are a major part of YOUR TREATMENT TEAM and will be handling your phone calls, [employer] Messages and inquiries, if any. Unless explicitly told otherwise at the time of your office visit, your study results and ensuing treatment plans will be released via [employer] and discussed during your follow-up appointment. [employer]): Please ask the schedulers to give you an activation code. The main way of communication is by [employer] rather than phone lines, so if you have not signed up, please do so. [employer] is also the way that you can review your labs and testing. We are not able to contact everyone to tell them results are normal. If you do not hear back from us regarding testing you have had, it should be considered normal or within normal range. If you have any questions about the results, you are free to message us. [employer] is meant for simple questions regarding medications, possible side effects, or other simple straight forward questions in limited sentences, rather than multiple paragraphs of discussion. [employer] is not meant for, or efficient for these complex questions, extensive questions, extensive medication adjustments, complex new symptoms or concerns. These issues beyond simple questions require a follow up visit with myself, one of our physician assistants, nurse practitioners, or a Virtual Visit via computer or smart phone, as detailed further down. Refills: Please pay attention to when your refills will need to be renewed. Due to the volume of phone calls daily, this could potentially take a few days, although we certainly try to honor your refill requests as soon as we can. You should call at least 1 week in advance of needing a refill to ensure you do not run out of medication. Keep in mind that refill requests on Fridays may not be filled until the following week. In regards to blood work, testing, and radiology reports these are released automatically to the patients. We do not comment on most testing on [employer] in a message or commentary unless there is a concern. You will not receive a message from me of the result unless there is a specific concern of the result I need you to address further in care with us or your primary medical team. Make sure to check your my chart email or monie. As an international referral center for syncope, autonomic dysfunction, general neurology, headache care, neuromuscular disease, and other related conditions, seeing patients from across the world, we do not have the resource of time or staffing to address inquiries for accommodations. As such, we do not provide or complete requests for work accommodations, FMLA, disability, or other such forms. We recommend seeking guidance through your primary care provider for these requests. We are happy to provide our office notes from your visits and other tests or evaluations performed through our clinic, which can be made available upon request to assist you with this process. documented in this encounter [facility] 08-16-2024 Note HNO ID: [id number] Author: ALIX DOUGLAS PA-C Service: ? Author Type: Physician Poured Wall Foreman Type: Progress Notes Filed: 08/16/2024 15:26 Note Text: Neurology Outpatient Clinic Date: August 16, 2024 Patient Name: Nabor Herrera Referring physician: Dionicio Brower [address] [facility] [address] Consult requested for headache by Dr. Brower. Recommendations will be communicated via shared medical record or [place] mail. Primary physician: Dionicio Brower [address] [place] [address] Reason for Evaluation: Headaches Subjective HPI Nabor Herrera is a 49 year old female who presents for evaluation of headache. Dr. Brower is the referring physician. Dr. Dionicio Brower MD is the PCP. Chart review: Saw PCP for migraine 07/19/24 Headaches are somewhat better. Getting headaches still quite frequent. Imitrex is being used to the max every month. No new neuro issue.s Not quite as frequent and not as severe. On imitrex, TPM, zofran. Patient presents for evaluation of headache. Chronic headaches for many years, previously managed by neurology and at one point was on Aimovig with good relief. However she lost her insurance and headaches have been increasing ever since. So she has daily headache that comes and goes, well aborted with Imitrex but needs more than 10 in a month. No new symptoms with the headaches, consistent with previous. Has been on topiramate through primary care, has been on this for about 2 to 3 months notes it has been helpful somewhat but has been off of it for the last 4 days due to insurance issues. Of note, does have history of kidney stones and has had kidney stones since being on this medication. Current Headache treatment Preventative: TPM 50mg at bedtime. Abortive: Imitrex, tylenol Medications effective? yes # of doses of abortive medications per month: daily Previous Medications: TPM Imitrex Elavil Seroquel Gabapentin Lamictal Propranolol Sertraline Maxalt Emgality Headache Description Onset: Chronic for years. Total headache days per month: daily Total headache attacks per month: daily Headache free days: No Duration of attacks: hours to multiple days Severity of headaches? Moderate to severe Onset to Peak: gradual and sudden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 (post-traumatic stress disorder) sees psych at [facility] Schizoaffective disorder ([facility]) [facility] psych [facility] Urinary tract infection, site not specified 2003 [...] History Tobacco Use Smoking status: Every Day Current packs/day: 0.50 Average packs/day: 0.5 packs/day for 14.0 years (7.0 ttl pk-yrs) Types: Cigarettes Smokeless tobacco: Never Substance Use Topics Alcohol use: No Drug use: Not Currently Types: Marijuana Comment: occasional marijuana Reviewed current medications, allergies, past medical history, surgical history, family history and social history today. REVIEW OF SYSTEMS All other reviewed and negative other than HPI. HEALTH MAINTENANCE: Reviewed health maintenance issues today and recommended the following in detail. Mammogram Screening ordered. VITALS: BP 108/62 Pulse 60 Wt 93.9 kg (207 lb) LMP 10/13/2006 SpO2 100% BMI 31.47 kg/m? Last 4 Encounter Wt Readings: Date: Wt: 06/08/2024 91.2 kg (201 lb) 05/24/2024 90.7 kg (200 lb) 04/08/2024 91.7 kg (202 lb 2.6 oz) 03/31/2024 97 kg (213 lb 13.5 oz) PHYSICAL EXAMINATION: General appearance: Well appearing, alert, in no acute distress, well-hydrated, well nourished. Skin: Skin color, texture, turgor normal, no suspicious rashes or lesions Head: Normocephalic, no masses, lesions, tenderness or abnormalities Lungs: Lungs clear to auscultation. No wheezing, rhonchi, r (more content not included)... [facility] 07-11-2024 Note Patient Outreach (FA MPWS) NABOR HERRERA ([id number]) 1975 F Date Time Provider Department 07/11/24 DIONICIO BROWER During your visit today, we recorded the following information about you: Allergies As of Date: 07/11/2024 Noted Allergy Reaction PENICILLINS 04/14/2006 16 - Unknown VICODIN (HYDROCODONE-ACETAMINOPHE*2006 8 - GI Upset Comments: States that was a reaction with compazine not an allergy. Date Reviewed: 06/08/2024 Reviewed by: Vani Mccann APRN.TELEGRAPH MESSENGER - Fully Assessed Visit Diagnosis:Encounter for screening mammogram for breast cancer [Z12.31] Order(s):DELLA SCREENING W KELVIN [[id number]] Order #: [id number] FUTURE Prescriptions as of 08/11/2024 - baclofen 10 mg tablet Take 1 tablet by mouth three times a day. - SUMAtriptan (IMITREX) 100 mg tablet Take 1 tablet by mouth as needed for migraine headache (see administration instructions). - topiramate (TOPAMAX) 50 mg tablet Take 1 tablet by mouth daily at bedtime. - hydrOXYzine pamoate (VISTARIL) 25 mg capsule Take 1 capsule by mouth four times daily. - albuterol (PROVENTIL) 2.5 mg /3 mL (0.083 %) nebulizer solution Use 3 mL via nebulizer every 6 hours as needed for wheezing/shortness of breath. Use over 5-15minutes. - ondansetron orally disintegrating (ZOFRAN ODT) 4 mg disintegrating tablet Take 1 tablet by mouth every 6 hours as needed for nausea/vomiting. - ibuprofen (MOTRIN) 800 mg tablet Take 1 tablet by mouth every 8 hours as needed for pain. Take with food. - albuterol HFA (PROVENTIL HFA, VENTOLIN HFA) 90 mcg/actuation inhaler Inhale 2 Puffs as instructed every 6 hours as needed for Wheezing/Shortness of Breath. Problem List As Of Date 07/11/2024 Noted Resolved Migraine without aura [G43.009] 08/27/2006 ABNORMAL FINDINGS NEC [R68.89] 11/16/2006 11/16/2006 Bipolar 1 disorder (HCC) [F31.9] PTSD (post-traumatic stress disorder) [F43.10] Schizoaffective disorder (HCC) [F25.9] Lumbago [M54.50] 07/17/2013 03/31/2024 Knee pain [M25.569] 12/01/2013 09/22/2018 Chronic back pain [M54.9, G89.29] 12/01/2013 Lumbar spondylosis [M47.816] 12/01/2013 Lumbar strain [S39.012A] 12/01/2013 03/31/2024 Chronic tension-type headache, intractable [G44*12/24/2015 03/31/2024 Chronic neck pain [M54.2, G89.29] 06/03/2017 Somatic dysfunction of cervical region [M99.01] 06/03/2017 03/31/2024 Somatic dysfunction of thoracic region [M99.02] 06/03/2017 03/31/2024 Somatic dysfunction of lumbar region [M99.03] 06/03/2017 03/31/2024 Lung nodules [R91.8] 05/04/2019 Migraine with aura, not intractable, without st*07/24/2021 03/31/2024 DDD (degenerative disc disease), cervical [M50.*07/24/2021 Encounter Status:Closed by [employer], PRODUSER on 08/11/24 [facility] 06-08-2024 Instructions Vani Mccann APRN.TELEGRAPH MESSENGER - 06/08/2024 2:23 PM EST COLONOSCOPY BOWEL PREPARATION INSTRUCTIONS GOLYTELY/NULYTELY/TRILYTE/COLYTE Your doctor has scheduled you for a colonoscopy. To have a successful colonoscopy, you must have a clean colon, that is empty. A clean colon allows your doctor to see the entire colon & diagnose issues like polyps or cancer. For doctors, a clean colon is like driving on a ze day; a dirty colon like driving in a storm. It is very important that you follow these instructions exactly, or your colonoscopy might not be as effective, could be canceled, and you may need to do the bowel prep and the colonoscopy again. TRANSPORTATION REQUIREMENTS You are receiving IV sedation. For your safety, a responsible adult escort must accompany you to and from your procedure: Your adult escort MUST be present with you at check-in for your colonoscopy. Your adult escort MUST remain in the endoscopy area until you are discharged. Your adult escort MUST transport you home once you are discharged. You are NOT allowed to operate any form of transportation (i.e. drive a car, bicycle, etc.) or leave the Endoscopy Center ALONE. It is not safe to do so. If you cannot meet these requirements, your procedure will be canceled. MEDICATION REQUIREMENTS For your safety, certain medications will need to be stopped or adjusted before you can have your procedure: BLOOD THINNERS: If you take blood thinners, such as Coumadin (warfarin), Plavix (clopidogrel), Ticlid (ticlopidine hydrochloride), Agrylin (anagrelide), Xarelto (Rivaroxaban), Pradaxa (Dabigatran), Eliquis (Apixaban), or Effient (Prasugrel), contact the physician who is prescribing these medications at least 2 weeks prior to your procedure to discuss any necessary adjustments. DIABETES: If you take medications for diabetes, your dosage may need to be adjusted. If you are being treated for diabetes with insulin, diabetic pills, or other injectable medications do not take your REGULAR dose after midnight on the day of your procedure. If you are taking any other types of insulin such as Lantus, Humalog, NPH (long-acting insulin), or 70/30 insulin, take half your normal dose the day before your procedure. DIABETES/WEIGHT MANAGEMENT: If you take medications for weight-loss, your dosage may need to be adjusted Contact the doctor who prescribes this medication for further instructions. If you take medications for weight-loss like semaglutide (Ozempic, Wegovy, Rybelsus), dulaglutide (Trulicity), liraglutide (Victoza, Saxenda), exenatide (Byetta, Bydureon), or lixisenatide (Adylyxin), stop your medication 1 week prior to your procedure. If you take medications like canagliflozin (Invokana), dapagliflozin (Farxiga, Forxiga), empagliflozin (Jardiance), stop your medication 3 days prior to your procedure. If you take ertugliflozin (Steglatro) stop your medication 4 days prior to your procedure. IRON: If you take iron pills, STOP them 1 week BEFORE your procedure, may resume after. OTHER MEDS: May take all other medications (including aspirin, antibiotics, water pills / diuretics like Lasix or Metolozone, blood pressure meds, etc.) at their usual scheduled time with a sip of water. DIET REQUIREMENTS The day before your colonoscopy, you may have a clear liquid diet (see below). The day of your colonoscopy, you may continue a clear liquid diet until 3 hours before your colonoscopy. Within 3 hours of your colonoscopy, take only any medications (as above) with a sip of water. Clear Liquid Diet Broth (chicken, beef or vegetable broth or bullion. Just the broth, no solids). Water Coffee or Tea (NO milk or creamer), but sugar and sugar substitutes are allowed. Clear liquids including clear, yellow, green, blue (NO red, NO orange, NO purple) Sodas / soft drinks Gatorade or other sports drinks Dylon-Aid or flavored drinks Plain Jell-O or other gelatins Fruit juice (strained; no-pulp) Popsicles or hard candy BOWEL PREPARATION (GOLYTELY/NULYTELY/TRILYTE/COLYT E) Split Dosing Bowel Prep: This means drinking your bowel prep in two doses. Split dosing helps clean your colon better and makes it less likely that your procedure will be canceled. Fill your prescription for Golytely/Nulytely/Trilyte/Colyte : The afternoon before your colonoscopy, mix the solution and refrigerate. You may add the flavor pack (if present) that came with the bowel preparation. Do not add ice, sugar, or other flavorings to the solution. You will drink your prep in two doses, by several hours. On the evening before your colonoscopy: 1. 6 PM drink the first half of the bowel preparation solution. Drink one 8-ounce glass every 15 minutes. 2. Six hours before your colonoscopy, drink the second half of the solution. Drink one 8-ounce glass every 15 minutes. 3. You may continue a clear liquid diet until 3 hours before your colonoscopy. Bowel prep can work differently from person to person. Some people's bowels move slowly and they may need different instructions. Please see your doctor in office or virtually for personalized bowel prep instructions if you have: Medical condition that needs special accommodations Had a poor bowel prep results or failed bowel prep attempts in the past. Had difficulty with anesthesia during the procedure. FREQUENTLY ASKED QUESTIONS Q: What if I suffer from constipation? A: Recommend taking extra laxatives to resolve your constipation days prior to entering the bowel prep day. Q: What if have had prior poor preps results in past? A: Contact your physician as you will likely need additional bowel prep instructions. Q: What if I have motility issues like Parkinson's, MS (multiple sclerosis), wheelchair dependent, etc.? or on medications that slow bowel emptying (narcotics, gabapentin, anticholinergic medications etc.) A: Contact your physician as you will likely need extra time and additional laxatives to complete your bowel prep. Q: What if I cannot drink large volume of liquid? A: Start your prep 2-3 hours earlier to allow yourself more time to complete the entire prep. Q: What if I can't finish my bowel prep? A: If you cannot finish your entire bowel prep, it is likely that your colonoscopy will need to be rescheduled due to poor prep quality. Q: What if I had bariatric surgery? Do I still have to complete the entire prep? A: Yes, gastric bypass surgery involves the stomach & small bowel. You may need to drink smaller amounts, slower (may need more time to complete your bowel prep). Gastric bypass does not alter the length of your colon so you will need to complete the entire bowel prep, it may just take longer time to complete it. Q: What if I am on dialysis? A: Please consult your terminal system operator prior to scheduling to get instructions pertinent to you. In general, dialysis patients take the Adinch Incytely bowel prep and have the procedure same day of their dialysis (colonoscopy in AM, dialysis in PM). Q: How do I know if something is considered as clear liquid diet? A: If you can pour it in a glass and you can see through it, it is considered clear liquid Q: Can I eat nuts, seeds, beans, popcorn, dried fruits, vegetables & fruits that have skin peel? A: No, you will need to not eat these items starting 3 days prior to procedure. Q: Can I take Uber/Lyft/taxi/bus home? A: An adult MUST be present with you at check-in for your colonoscopy and remain in the endoscopy area until you are discharged. You can take Uber home only if this adult escort is with you at check in, remain in the endoscopy area until you are discharged, and takes the Uber with you to home. Q: Can I sleep it off here and drive myself home? A: No, you must have an adult with you at time of procedure check in, remain in the endoscopy center during your procedure, and drive you home. You cannot drive a vehicle after your procedure the rest of the day. documented in this encounter [facility] 06-08-2024 History of Presen t illness Narrative HISTORY AND PHYSICAL Nabor Herrera : 1975 REFERRING PHYSICIAN: Dionicio Brower [address] [facility] [address] CHIEF COMPLAINT: Patient presents with: Colon Consult Positive Cologard HPI: Nabor is a 48 year old female referred for endoscopy. Nabor notes + Cologuard. Nabor denies abdominal pain.. Nabor denies diarrhea. Nabor notes constipation. -fluctuates between soft bowels and constipation -chronic problem -her whole life -denies straining Nabor denies a change in bowel habits. Nabor denies melena. Nabor denies bright red blood per rectum. Nabor denies hemorrhoids. Nabor denies family history of colon issues. Nabor notes occasional heartburn. -does not get very often but when she does it is so painful she has gone to the ED Nabor notes occasional dysphagia. -feels like food gets stuck in throat, passes with liquid -never had to have it removed via scope Nabor denies a history of ulcers/ peptic ulcer disease. Medical history is significant for migraines, DDD, and PTSD/bipolar. Beverly admits to excessive marijuana use to help with pain and mental health issues. Nabor has not undergone prior endoscopy. Current Outpatient Medications Medication Sig topiramate (TOPAMAX) 50 mg tablet Take 1 tablet by mouth daily at bedtime. hydrOXYzine pamoate (VISTARIL) 25 mg capsule Take 1 capsule by mouth four times daily. SUMAtriptan (IMITREX) 100 mg tablet Take 1 tablet (100 mg) by mouth as needed for migraine headache (see administration instructions). albuterol (PROVENTIL) 2.5 mg /3 mL (0.083 %) nebulizer solution Use 3 mL via nebulizer every 6 hours as needed for wheezing/shortness of breath. Use over 5-15minutes. ondansetron orally disintegrating (ZOFRAN ODT) 4 mg disintegrating tablet Take 1 tablet by mouth every 6 hours as needed for nausea/vomiting. ibuprofen (MOTRIN) 800 mg tablet Take 1 tablet by mouth every 8 hours as needed for pain. Take with food. albuterol HFA (PROVENTIL HFA, VENTOLIN HFA) 90 mcg/actuation inhaler Inhale 2 Puffs as instructed every 6 hours as needed for Wheezing/Shortness of Breath. peg 3350-Electrolytes (GOLYTELY) 236-22.74-6.74 -5.86 gram suspension Take 4,000 mL by mouth one time only for 1 dose. Refer to printed prep instructions from your provider. No current facility-administered medications for this visit. ALLERGIES: Penicillins and Vicodin [Hydrocodone-Acetaminophen] PAST MEDICAL HISTORY Diagnosis Date Bipolar 1 disorder ([facility]) [facility] psych [facility] DVT (deep venous thrombosis) ([facility]) 2006 Marijuana use Migraine with aura PE (pulmonary embolism) 2006 PTSD (post-traumatic stress disorder) sees psych at [facility] Schizoaffective disorder ([facility]) sees psych at [facility] Urinary tract infection, site not specified 2003 [...] History Tobacco Use Smoking status: Every Day Current packs/day: 0.50 Average packs/day: 0.5 packs/day for 14.0 years (7.0 ttl pk-yrs) Types: Cigarettes Smokeless tobacco: Never Substance Use Topics Alcohol use: No Drug use: Not Currently Types: Marijuana Comment: occasional marijuana REVIEW OF SYMPTOMS: REVIEW OF SYSTEMS: General: The patient denies fatigue, denies weight loss, denies weight gain, denies feeling hot, and feelings of cold. Eyes: The patient denies glaucoma, denies eye injury/surgery, + glasses or contacts. Ear/Nose/Throat: The patient + allergies, denies hayfever, + ear infections, and denies bloody noses. Cardiovascular: The patient denies chest pain, denies heart disease, denies high blood pressure, denies high cholesterol, and denies poor circulation. Respiratory: The patient denies tuberculosis, + pneumonia, denies frequent cough, denies shortness of breath, and denies coughing up blood. Gastrointestinal: The patient denies difficulty swallowing, denies acid reflux, denies ulcers, denies jaundice/hepatitis, denies gallbladder problems, denies vomiting, denies black or tarry stools, denies hemorrhoids, denies bleeding from rectum, denies diverticulitis, denies constipation, denies diarrhea, denies loss of stool control, and denies hernias. Kidney/Bladder: The patient + kidney stones, + urine infections, and denies bloody urine. Skin: The patient denies a history of skin cancer, denies bleeding/changing moles, and denies a history of skin rash. Neurologic: The patient denies a history of epilepsy/convulsions, + headaches, denies head/spinal injuries, and denies stroke/TIA. Psychiatric: The patient denies psychiatric medications, + depression, and denies voices. Endocrine: The patient denies thyroid disorders, denies diabetes, and denies hormonal problems. Hematologic: The patient denies a history of bruising, denies bleeding, and + anemia. Infections: The patient denies a history of measles and mumps, denies rheumatic fever, and denies sexually transmitted diseases. Musculoskeletal: The patient denies back pain/injury, + back problems, denies sciatica, denies knee/foot trouble, + arthritis, or denies gout. PHYSICAL EXAMINATION: General: The patient is 48 year old, female well nourished, well hydrated in no acute distress. The patient is oriented to time, place, and person. VITALS: Blood pressure 105/72, pulse 80, weight 91.2 kg (201 lb), last menstrual period 10/13/2006, SpO2 98%. Body mass index is 30.56 kg/m . HEENT: Normal cephalic, ataumatic, pupils are equally round, sclera are anicteric, mucous membranes are moist, oropharynx is clear. Neck has no masses, asymmetry or lymphadenopathy. Respiratory: Clear to auscultation and percussion. Normal respiratory excursion and pattern. Cardiac: Examination is regular rate and rhythm. Normal S1/S2 Abdominal exam: Soft, nontender, with no palpable masses. No hepatosplenomegaly. No palpable hernias. Extremities: no clubbing, cyanosis or edema. No adenopathy. LABORATORY VALUES: As Noted RADIOLOGIC STUDIES: As Noted Assessment IMPRESSION: + cologuard, acid reflux PLAN: I have reviewed my findings with the surgeon. Will plan for upper and lower endoscopy. We discussed the risks and benefits of the planned endoscopy. I have informed the patient that complications can occur including failure to complete the endoscopy and perforation. Nabor had the opportunity to ask questions concerning the planned endoscopy. My staff has also explained the procedure to the patient in understandable terms and has given the patient printed material concerning the procedure. Nabor freely consents to surgery. I plan to use Golytely bowel preparation I have explained to the patient the difference between IV conscious sedation and MAC anesthesia - and I have offered either, according to the patient's wishes. I have explained that with IV conscious sedation there is no anesthesia provider available and therefore there is a limitation of the amount of IV medications that can be given and that the patient may wake up in the middle of the procedure and/or experience pain/discomfort during the procedure. Further discussion was done and the patient was given the opportunity to ask questions and all questions were answered. Nabor chooses MAC anesthesia. Nabor was counseled that if there are changes in his/her medical condition, to let the office know if surgery should proceed. If there are changes in patient's medical condition from time of this encounter to the day of the procedure that preclude anesthesia, patient may have procedure cancelled for patient's safety. Diagnoses: (K21.9) Gastroesophageal reflux disease, unspecified whether esophagitis present (primary encounter diagnosis) (R19.5) Positive colorectal cancer screening using Cologuard test Consultation requested by Dr. Brower for an opinion regarding positive cologuard. My final recommendations will be communicated back to the requesting physician by way of shared Medical record or letter to requesting physician via US mail. Portions of this documentation were copied and pasted from previous office visit notes in order to provide a cohesive continuity of the history. The note has been reviewed and edited and updated as necessary. Vani Mccann APRN.CNP documented in this encounter [facility] 06-08-2024 Note HNO ID: [id number] Author: VANI MCCANN APRN.DAVID Service: ? Author Type: Nurse Practitioner Type: Progress Notes Filed: 06/08/2024 14:39 Note Text: HISTORY AND PHYSICAL Nabor Herrera : 1975 REFERRING PHYSICIAN: Dionicio Brower [address] [place] [address] CHIEF COMPLAINT: Patient presents with: Colon Consult Positive Cologard HPI: Nabor is a 48 year old female referred for endoscopy. Nabor notes + Cologuard. Nabor denies abdominal pain.. Nabor denies diarrhea. Nabor notes constipation. -fluctuates between soft bowels and constipation -chronic problem -her whole life -denies straining Nabor denies a change in bowel habits. Nabor denies melena. Nabor denies bright red blood per rectum. Nabor denies hemorrhoids. Nabor denies family history of colon issues. Nabor notes occasional heartburn. -does not get very often but when she does it is so painful she has gone to the ED Nabor notes occasional dysphagia. -feels like food gets stuck in throat, passes with liquid -never had to have it removed via scope Nabor denies a history of ulcers/ peptic ulcer disease. Medical history is significant for migraines, DDD, and PTSD/bipolar. Beverly admits to excessive marijuana use to help with pain and mental health issues. Nabor has not undergone prior endoscopy. Current Outpatient Medications Medication Sig topiramate (TOPAMAX) 50 mg tablet Take 1 tablet by mouth daily at bedtime. hydrOXYzine pamoate (VISTARIL) 25 mg capsule Take 1 capsule by mouth four times daily. SUMAtriptan (IMITREX) 100 mg tablet Take 1 tablet (100 mg) by mouth as needed for migraine headache (see administration instructions). albuterol (PROVENTIL) 2.5 mg /3 mL (0.083 %) nebulizer solution Use 3 mL via nebulizer every 6 hours as needed for wheezing/shortness of breath. Use over 5-15minutes. ondansetron orally disintegrating (ZOFRAN ODT) 4 mg disintegrating tablet Take 1 tablet by mouth every 6 hours as needed for nausea/vomiting. ibuprofen (MOTRIN) 800 mg tablet Take 1 tablet by mouth every 8 hours as needed for pain. Take with food. albuterol HFA (PROVENTIL HFA, VENTOLIN HFA) 90 mcg/actuation inhaler Inhale 2 Puffs as instructed every 6 hours as needed for Wheezing/Shortness of Breath. peg 3350-Electrolytes (GOLYTELY) 236-22.74-6.74 -5.86 gram suspension Take 4,000 mL by mouth one time only for 1 dose. Refer to printed prep instructions from your provider. No current facility-administered medications for this visit. ALLERGIES: Penicillins and Vicodin [Hydrocodone-Acetaminophen] PAST MEDICAL HISTORY Diagnosis Date Bipolar 1 disorder ([facility]) sees psych at [facility] DVT (deep venous thrombosis) ([facility]) 2006 Marijuana use Migraine with aura PE (pulmonary embolism) 2006 PTSD (post-traumatic stress disorder) sees psych [facility] Schizoaffective disorder ([facility]) sees psych at [facility] Urinary tract infection, site not specified 2004 [...] History Tobacco Use Smoking status: Every Day Current packs/day: 0.50 Average packs/day: 0.5 packs/day for 14.0 years (7.0 ttl pk-yrs) Types: Cigarettes Smokeless tobacco: Never Substance Use Topics Alcohol use: No Drug use: Not Currently Types: Marijuana Comment: occasional marijuana REVIEW OF SYMPTOMS: REVIEW OF SYSTEMS: General: The patient denies fatigue, denies weight loss, denies weight gain, denies feeling hot, and feelings of cold. Eyes: The patient denies glaucoma, denies eye injury/surgery, + glasses or contacts. Ear/Nose/Throat: The patient + allergies, denies hayfever, + ear infections, and denies bloody noses. Cardiovascular: The patient denies chest pain, denies heart disease, denies high blood pressure, denies high cholesterol, and denies poor circulation. Respiratory: The patient denies tuberculosis, + pneumonia, denies frequent cough, denies shortness of breath, and denies coughing up blood. Gastrointestinal: The patient denies difficulty swallowing, denies acid reflux, denies ulcers, denies jaundice/hepatitis, denies gallbladder problems, denies vomiting, denies black or tarry stools, denies hemorrhoids, denies bleeding from rectum, denies diverticulitis, denies constipation, denies diarrhea, denies loss of stoo (more content not included)... [facility] 06-02-2024 Telephone encounter Note Patient was notified and requested pss call to schedule Brigitte Oneil MA [facility] 06-02-2024 Miscellaneous Notes Patient was notified and requested pss call to schedule Brigitte Oneil MA Cologuard is positive. Means she has to see surgery for colonoscopy documented in this encounter [facility] 06-02-2024 Telephone encounter Note Cologuard is positive. Means she has to see surgery for colonoscopy [facility] 05-24-2024 Note HNO ID: [id number] Author: DIONICIO BROWER MD Service: ? Author Type: Physician Type: Progress Notes Filed: 05/24/2024 16:38 Note Text: Patient presents with: Follow Up HPI: Patient presents today for office visit for 4 week follow up on her migraines. Using Sumatriptan prn. Discussed limiting. Topamax 25 mg at bedtime added. Migraines are still pretty bad. Mentions life stressors that she's currently going through that trigger the migraines. Father just so not sleeping well etc. No side effects though. Has not noticed a difference with the medication. See previous note: Hx of migraines. Using Sumatriptan prn. Having 8-10 migraines a month. Migraines are more frequent recently due to life stressors. Pharmacy was only filling 6 tablets for the month whereas she was getting 12 for the month. Another provider had increase the amount of imitrex. She does not use more than one a in 24 hour. Discussed limiting imitrex usage. No focal neuro issues. She may want to consider seeing pain management for her neck at some point. No heartburn. No breathing issues or chest pain. MEDICATIONS: Current Outpatient Medications Medication Sig SUMAtriptan (IMITREX) 100 mg tablet Take 1 tablet (100 mg) by mouth as needed for migraine headache (see administration instructions). albuterol (PROVENTIL) 2.5 mg /3 mL (0.083 %) nebulizer solution Use 3 mL via nebulizer every 6 hours as needed for wheezing/shortness of breath. Use over 5-15minutes. ondansetron orally disintegrating (ZOFRAN ODT) 4 mg disintegrating tablet Take 1 tablet by mouth every 6 hours as needed for nausea/vomiting. topiramate (TOPAMAX) 25 mg tablet Take 1 tablet by mouth daily at bedtime. baclofen 10 mg tablet Take 1 tablet by mouth three times a day. ibuprofen (MOTRIN) 800 mg tablet Take 1 tablet by mouth every 8 hours as needed for pain. Take with food. albuterol HFA (PROVENTIL HFA, VENTOLIN HFA) 90 mcg/actuation inhaler Inhale 2 Puffs as instructed every 6 hours as needed for Wheezing/Shortness of Breath. No current facility-administered medications for this visit. ALLERGIES: ALLERGIES Allergen Reactions Penicillins Unknown Vicodin [Hydrocodon* GI Upset States that was a reaction with compazine not an allergy. PAST MEDICAL HISTORY Diagnosis Date Bipolar 1 disorder ([facility]) sees psych at [facility] DVT (deep venous thrombosis) ([facility]) 2006 Marijuana use Migraine with aura PE (pulmonary embolism) 2006 PTSD (post-traumatic stress disorder) sees psych at [facility] Schizoaffective disorder ([facility]) [facility] [...] History Tobacco Use Smoking status: Every Day Current packs/day: 0.50 Average packs/day: 0.5 packs/day for 14.0 years (7.0 ttl pk-yrs) Types: Cigarettes Smokeless tobacco: Never Substance Use Topics Alcohol use: No Drug use: Not Currently Types: Marijuana Comment: occasional marijuana Reviewed current medications, allergies, past medical history, surgical history, family history and social history today. REVIEW OF SYSTEMS All other reviewed and negative other than HPI. VITALS: BP 137/83 Pulse 85 Ht 172.7 cm (5' 8) Wt 90.7 kg (200 lb) LMP 10/13/2006 BMI 30.41 kg/m? Last 4 Encounter Wt Readings: Date: Wt: 04/08/2024 91.7 kg (202 lb 2.6 oz) 03/31/2024 97 kg (213 lb 13.5 oz) 10/22/2023 90.7 kg (200 lb) 10/13/2023 90.7 kg (200 lb) PHYSICAL EXAMINATION: General appearance: Well appearing, alert, in no acute distress, well-hydrated, well nourished. Tearful. Skin: Skin color, texture, turgor normal, no suspicious rashes or lesions Lungs: Lungs clear to auscultation. No wheezing, rhonchi, rales Heart: RRR without murmur, gallop, or rubs. No ectopy Abdomen: Normal abdominal exam, Abdomen soft, non-tender. Bowel sounds normal. No masses, organomegaly Extremities: No deformities, edema, skin discoloration, clubbing or cyanosis. Good capillary refill. ASSESSMENT/PLAN: 1. Anxiety - ICD9: 300.00, ICD10: F41.9 (primary diagnosis) - Discussed risks and benefits of new medication with the patient. Advised them to call if any side effects or questions. Call if any issues. - HYDROXYZINE PAMOATE 25 MG CAPSULE 2. Migraine without aura and with status migrainosus, not intractable - ICD9: (more content not included)... [facility] 05-24-2024 History of Presen t illness Narrative Patient presents with: Follow Up HPI: Patient presents today for office visit for 4 week follow up on her migraines. Using Sumatriptan prn. Discussed limiting. Topamax 25 mg at bedtime added. Migraines are still pretty bad. Mentions life stressors that she's currently going through that trigger the migraines. Father just so not sleeping well etc. No side effects though. Has not noticed a difference with the medication. See previous note: Hx of migraines. Using Sumatriptan prn. Having 8-10 migraines a month. Migraines are more frequent recently due to life stressors. Pharmacy was only filling 6 tablets for the month whereas she was getting 12 for the month. Another provider had increase the amount of imitrex. She does not use more than one a in 24 hour. Discussed limiting imitrex usage. No focal neuro issues. She may want to consider seeing pain management for her neck at some point. No heartburn. No breathing issues or chest pain. MEDICATIONS: Current Outpatient Medications Medication Sig SUMAtriptan (IMITREX) 100 mg tablet Take 1 tablet (100 mg) by mouth as needed for migraine headache (see administration instructions). albuterol (PROVENTIL) 2.5 mg /3 mL (0.083 %) nebulizer solution Use 3 mL via nebulizer every 6 hours as needed for wheezing/shortness of breath. Use over 5-15minutes. ondansetron orally disintegrating (ZOFRAN ODT) 4 mg disintegrating tablet Take 1 tablet by mouth every 6 hours as needed for nausea/vomiting. topiramate (TOPAMAX) 25 mg tablet Take 1 tablet by mouth daily at bedtime. baclofen 10 mg tablet Take 1 tablet by mouth three times a day. ibuprofen (MOTRIN) 800 mg tablet Take 1 tablet by mouth every 8 hours as needed for pain. Take with food. albuterol HFA (PROVENTIL HFA, VENTOLIN HFA) 90 mcg/actuation inhaler Inhale 2 Puffs as instructed every 6 hours as needed for Wheezing/Shortness of Breath. No current facility-administered medications for this visit. ALLERGIES: ALLERGIES Allergen Reactions Penicillins Unknown Vicodin [Hydrocodon* GI Upset States that was a reaction with compazine not an allergy. PAST MEDICAL HISTORY Diagnosis Date Bipolar 1 disorder ([facility]) [facility] ([facility] ([facility]) 2006 Marijuana use Migraine with aura PE (pulmonary embolism) 2006 PTSD (post-traumatic stress disorder) [facility] Schizoaffective disorder ([facility]) sees psych at [facility] Urinary tract infection, site not specified 2003 [...] History Tobacco Use Smoking status: Every Day Current packs/day: 0.50 Average packs/day: 0.5 packs/day for 14.0 years (7.0 ttl pk-yrs) Types: Cigarettes Smokeless tobacco: Never Substance Use Topics Alcohol use: No Drug use: Not Currently Types: Marijuana Comment: occasional marijuana Reviewed current medications, allergies, past medical history, surgical history, family history and social history today. REVIEW OF SYSTEMS All other reviewed and negative other than HPI. VITALS: BP 137/83 Pulse 85 Ht 172.7 cm (5' 8) Wt 90.7 kg (200 lb) LMP 10/13/2006 BMI 30.41 kg/m Last 4 Encounter Wt Readings: Date: Wt: 04/08/2024 91.7 kg (202 lb 2.6 oz) 03/31/2024 97 kg (213 lb 13.5 oz) 10/22/2023 90.7 kg (200 lb) 10/13/2023 90.7 kg (200 lb) PHYSICAL EXAMINATION: General appearance: Well appearing, alert, in no acute distress, well-hydrated, well nourished. Tearful. Skin: Skin color, texture, turgor normal, no suspicious rashes or lesions Lungs: Lungs clear to auscultation. No wheezing, rhonchi, rales Heart: RRR without murmur, gallop, or rubs. No ectopy Abdomen: Normal abdominal exam, Abdomen soft, non-tender. Bowel sounds normal. No masses, organomegaly Extremities: No deformities, edema, skin discoloration, clubbing or cyanosis. Good capillary refill. ASSESSMENT/PLAN: 1. Anxiety - ICD9: 300.00, ICD10: F41.9 (primary diagnosis) - Discussed risks and benefits of new medication with the patient. Advised them to call if any side effects or questions. Call if any issues. - HYDROXYZINE PAMOATE 25 MG CAPSULE 2. Migraine without aura and with status migrainosus, not intractable - ICD9: 346.12, ICD10: G43.001 - increase dose. - TOPIRAMATE 50 MG TABLET Dionicio Brower MD documented in this encounter [facility] 05-18-2024 Telephone encounter Note Patient has been identified by name and date of : Yes Patient phones for refill(s): Requested Prescriptions Pending Prescriptions Disp Refills SUMAtriptan (IMITREX) 100 mg tablet 9 tablet 2 Sig: Take 1 tablet (100 mg) by mouth as needed for migraine headache (see administration instructions). Date of last office visit in primary care: 04/11/2024 Date of next office visit in primary care: 05/24/2024 Please advise. Thank you. Debbie Melo. [facility] 05-18-2024 Miscellaneous Notes Patient has been identified by name and date of : Yes Patient phones for refill(s): Requested Prescriptions Pending Prescriptions Disp Refills SUMAtriptan (IMITREX) 100 mg tablet 9 tablet 2 Sig: Take 1 tablet (100 mg) by mouth as needed for migraine headache (see administration instructions). Date of last office visit in primary care: 04/11/2024 Date of next office visit in primary care: 05/24/2024 Please advise. Thank you. Debbie Melo. documented in this encounter [facility] 04-11-2024 Instructions Bruna Parker APRN.CNP - 04/11/2024 3:12 PM EST Finish the prednisone that urgent gave you, then start min. The prednisone taper will be 4 tablets for 3 days; 3 tablets for 3 days; 2 tablets for 3 days; then 1 tablet for 3 days. Please do no use other anti-inflammatories (like ibuprofen, aleve, naproxen, etc) while you are on this medication. 2. Start the doxycycline twice daily X 10 days. 3. Zofran as needed for nausea. 4. Use the nebulizer. 5. Let us know if no better/worsening. documented in this encounter [facility] 04-11-2024 Note HNO ID: [id number] Author: BRUNA PARKER APRN.DAVID Service: ? Author Type: Nurse Practitioner Type: Progress Notes Filed: 04/12/2024 17:14 Note Text: This is a 48 year old female who presents today with: Patient presents with: Recheck: Follow up [facility] Care- not feeling any better; c/o body aches, cough, vomiting, diarrhea, headache, chest presssure; tested negative for COVID/flu HISTORY OF PRESENT ILLNESS: Nabor Herrera is a 48 year old female. Patient presents with: Recheck: Follow up [facility] Care- not feeling any better; c/o body aches, cough, vomiting, diarrhea, headache, chest presssure; tested negative for COVID/flu Pt presents today with complaint of ongoing URI symptoms. Went to urgent care on 04/08 with uri symptoms. She was diagnosed with bronchitis. She was started on prednisone. Her covid testing was negative. Cough is not productive. Refers that she had an aerosol tx in urgent care which was helpful. She was starting to feel improved, but then things settled back in the chest again. Refers that her symptoms are worse. Still with upper respiratory and nasal symptoms. She reports that her stools today are like water. She is having vomiting. This started about 2 luz ago. Her stomach feels like in knots. Refers not keeping anything down, but she has been able to sip water. PAST MEDICAL HISTORY: PAST MEDICAL HISTORY Diagnosis Date Bipolar 1 disorder ([facility]) sees psych [facility] DVT (deep venous thrombosis) ([facility]) 2006 Marijuana use Migraine with aura PE (pulmonary embolism) 2006 PTSD (post-traumatic stress disorder) sees psych at [facility] Schizoaffective disorder ([facility]) sees psych at [facility] Urinary tract infection, site not specified 2003 PAST SURGICAL HISTORY Procedure Laterality Date DELIVERY ONLY x 3 , low cervical LIG/TRNSXJ FLP TUBE ABDL/VAG APPR UNI/BI 2001 Tubal ligation PAST SURGICAL HISTORY OF Left 2017 IANDD left leg wound TOTAL ABDOMINAL HYSTERECT W/WO RMVL TUBE OVARY -says somethign cancerous or precancerous ALLERGIES Penicillins and Vicodin [Hydrocodone-Acetaminophen] MEDICATIONS Current Outpatient Medications Medication Sig predniSONE (DELTASONE) 20 mg tablet Take 2 tablets by mouth once daily for 5 days. benzonatate (TESSALON PERLE) 100 mg capsule Take 2 capsules by mouth three times a day as needed for cough for up to 7 days. topiramate (TOPAMAX) 25 mg tablet Take 1 tablet by mouth daily at bedtime. SUMAtriptan (IMITREX) 100 mg tablet Take 1 tablet (100 mg) by mouth as needed for migraine headache (see administration instructions). baclofen 10 mg tablet Take 1 tablet by mouth three times a day. famotidine (PEPCID) 20 mg tablet Take 1 tablet by mouth at bedtime as needed. ibuprofen (MOTRIN) 800 mg tablet Take 1 tablet by mouth every 8 hours as needed for pain. Take with food. albuterol HFA (PROVENTIL HFA, VENTOLIN HFA) 90 [...] History Tobacco Use Smoking status: Every Day Current packs/day: 0.50 Average packs/day: 0.5 packs/day for 14.0 years (7.0 ttl pk-yrs) Types: Cigarettes Smokeless tobacco: Never Substance Use Topics Alcohol use: No Drug use: Not Currently Types: Marijuana Comment: occasional marijuana EXAM: BP 126/92 Pulse 104 Resp 16 LMP 10/13/2006 SpO2 97% PHYSICAL EXAM: General Appearance: Well appearing, alert, in no acute distress, well-hydrated, well nourished.. Skin: Skin color, texture, turgor normal, no suspicious rashes or lesions. Head: Normocephalic, no masses, lesions, tenderness or abnormalities. Eyes: Anicteric sclera. Pupils are equally round and reactive to light. Extraocular movements are intact. . Ears: External ears normal, canals clear. Normal TMs bilaterally. Oropharynx: Lips, mucosa, and tongue normal, teeth and gums normal, oropharynx normal. Neck: Supple, no adenopathy; thyroid symmetric, normal size, no bruits. Lungs: scattered wheezing and rhonchi throughout. Heart: RRR without murmur, gallop, or rubs. No ectopy. Extremities: No deformities, edema, skin discoloration, clubbing or cyanosis. Good capillary refill. . Neurologic: Gait normal. ASSESSMENT/PLAN: 1. Bronchitis - ICD9: 490, ICD10: J40 (primary diagnosis) Start nebulizers. Continue prednisone. Start doxy. Mucinex. Let us know if no better/worsening. - ALBUTEROL SULFATE 2.5 MG/3 ML (0.083 %) SOLUTION FOR NEBULIZATION - DOXYCYCLINE HYCLATE 100 MG TABLET - PREDNISONE 10 MG TABLET - ONDANSETRON 4 M (more content not included)... [facility] 04-11-2024 History of Presen t illness Narrative This is a 48 year old female who presents today with: Patient presents with: Recheck: Follow up Urg Care- not feeling any better; c/o body aches, cough, vomiting, diarrhea, headache, chest presssure; tested negative for COVID/flu HISTORY OF PRESENT ILLNESS: Nabor Herrera is a 48 year old female. Patient presents with: Recheck: Follow up [facility]rg Care- not feeling any better; c/o body aches, cough, vomiting, diarrhea, headache, chest presssure; tested negative for COVID/flu Pt presents today with complaint of ongoing URI symptoms. Went to urgent care on 04/08 with uri symptoms. She was diagnosed with bronchitis. She was started on prednisone. Her covid testing was negative. Cough is not productive. Refers that she had an aerosol tx in urgent care which was helpful. She was starting to feel improved, but then things settled back in the chest again. Refers that her symptoms are worse. Still with upper respiratory and nasal symptoms. She reports that her stools today are like water. She is having vomiting. This started about 2 luz ago. Her stomach feels like in knots. Refers not keeping anything down, but she has been able to sip water. PAST MEDICAL HISTORY: PAST MEDICAL HISTORY Diagnosis Date Bipolar 1 disorder ([facility]) sees psych at [facility] DVT (deep venous thrombosis) ([facility]) 2006 Marijuana use Migraine with aura PE (pulmonary embolism) 2006 PTSD (post-traumatic stress disorder) sees psych at [facility] Schizoaffective disorder ([facility]) sees psych at [facility] Urinary tract infection, site not specified 2003 PAST SURGICAL HISTORY Procedure Laterality Date DELIVERY ONLY x 3 , low cervical LIG/TRNSXJ FLP TUBE ABDL/VAG APPR UNI/BI 2001 Tubal ligation PAST SURGICAL HISTORY OF Left 2017 I&D left leg wound TOTAL ABDOMINAL HYSTERECT W/WO RMVL TUBE OVARY -says somethign cancerous or precancerous ALLERGIES Penicillins and Vicodin [Hydrocodone-Acetaminophen] MEDICATIONS Current Outpatient Medications Medication Sig predniSONE (DELTASONE) 20 mg tablet Take 2 tablets by mouth once daily for 5 days. benzonatate (TESSALON PERLE) 100 mg capsule Take 2 capsules by mouth three times a day as needed for cough for up to 7 days. topiramate (TOPAMAX) 25 mg tablet Take 1 tablet by mouth daily at bedtime. SUMAtriptan (IMITREX) 100 mg tablet Take 1 tablet (100 mg) by mouth as needed for migraine headache (see administration instructions). baclofen 10 mg tablet Take 1 tablet by mouth three times a day. famotidine (PEPCID) 20 mg tablet Take 1 tablet by mouth at bedtime as needed. ibuprofen (MOTRIN) 800 mg tablet Take 1 tablet by mouth every 8 hours as needed for pain. Take with food. albuterol HFA (PROVENTIL HFA, VENTOLIN HFA) 90 [...] History Tobacco Use Smoking status: Every Day Current packs/day: 0.50 Average packs/day: 0.5 packs/day for 14.0 years (7.0 ttl pk-yrs) Types: Cigarettes Smokeless tobacco: Never Substance Use Topics Alcohol use: No Drug use: Not Currently Types: Marijuana Comment: occasional marijuana EXAM: BP 126/92 Pulse 104 Resp 16 LMP 10/13/2006 SpO2 97% PHYSICAL EXAM: General Appearance: Well appearing, alert, in no acute distress, well-hydrated, well nourished.. Skin: Skin color, texture, turgor normal, no suspicious rashes or lesions. Head: Normocephalic, no masses, lesions, tenderness or abnormalities. Eyes: Anicteric sclera. Pupils are equally round and reactive to light. Extraocular movements are intact. . Ears: External ears normal, canals clear. Normal TMs bilaterally. Oropharynx: Lips, mucosa, and tongue normal, teeth and gums normal, oropharynx normal. Neck: Supple, no adenopathy; thyroid symmetric, normal size, no bruits. Lungs: scattered wheezing and rhonchi throughout. Heart: RRR without murmur, gallop, or rubs. No ectopy. Extremities: No deformities, edema, skin discoloration, clubbing or cyanosis. Good capillary refill. . Neurologic: Gait normal. ASSESSMENT/PLAN: 1. Bronchitis - ICD9: 490, ICD10: J40 (primary diagnosis) Start nebulizers. Continue prednisone. Start doxy. Mucinex. Let us know if no better/worsening. - ALBUTEROL SULFATE 2.5 MG/3 ML (0.083 %) SOLUTION FOR NEBULIZATION - DOXYCYCLINE HYCLATE 100 MG TABLET - PREDNISONE 10 MG TABLET - ONDANSETRON 4 MG DISINTEGRATING TABLET 2. Cough, unspecified type - ICD9: 786.2, ICD10: R05.9 As above. Discussed treatment plan and patient voices understanding. Patient's questions answered appropriately. Medications and potential side effects were discussed and patient voices understanding. Return to the office as scheduled or as needed for worsening/no improvement. Bruna Parker APRN.TELEGRAPH MESSENGER documented in this encounter [facility] 04-09-2024 Telephone encounter Note Pt was notified of the results. Pt verbalized understanding. Duran Mann MA [facility] 04-09-2024 Miscellaneous Notes Pt was notified of the results. Pt verbalized understanding. Duran Mann MA Please advise patient esophoria COVID/flu/RSV test was negative. Follow instructions given by provider at visit, f/u with PCP if symptoms persist or worsen. Callie Ordonez APRN.TELEGRAPH MESSENGER documented in this encounter [facility] 04-09-2024 Telephone encounter Note Please advise patient esophoria COVID/flu/RSV test was negative. Follow instructions given by provider at visit, f/u with PCP if symptoms persist or worsen. Callie Ordonez APRN.DAVID [facility] 04-08-2024 Note HNO ID: [id number] Author: NOREEN TENORIO PA-C Service: ? Author Type: Physician Poured Wall Foreman Type: Progress Notes Filed: 04/08/2024 09:34 Note Text: This note was created using NoteWriter. Subjective Nabor Herrera is a 48 year old female. HPI Presents with a chief complaint of cough and chest congestion for 2 days. She has had some hot flashes but no recorded fever. She does have a history of asthma and has been wheezing and short of breath. She was exposed to COVID by some family members recently. She has had some diarrhea. No vomiting. She has been using her inhalers. Review of Systems Constitutional: Positive for chills and fatigue. HENT: Positive for congestion and ear pain. Negative for sinus pressure and sinus pain. Respiratory: Positive for cough, shortness of breath and wheezing. Cardiovascular: Negative. Gastrointestinal: Positive for diarrhea. Negative for abdominal pain and vomiting. Genitourinary: Negative. Musculoskeletal: Positive for myalgias. All other systems reviewed and are negative. PAST MEDICAL HISTORY Diagnosis Date Bipolar 1 disorder ([facility]) [facility] psych [facility] DVT (deep venous thrombosis) ([facility]) 2006 Marijuana use Migraine with aura PE (pulmonary embolism) 2006 PTSD (post-traumatic stress disorder) sees psych at [facility] Schizoaffective disorder ([facility]) sees psych at [facility] Urinary tract infection, site not specified 2003 Current Outpatient Medications Medication Sig Dispense Refill topiramate (TOPAMAX) 25 mg tablet Take 1 tablet by mouth daily at bedtime. 30 tablet 2 SUMAtriptan (IMITREX) 100 mg tablet Take 1 tablet (100 mg) by mouth as needed for migraine headache (see administration instructions). 9 tablet 2 baclofen 10 mg tablet Take 1 tablet by mouth three times a day. 90 tablet 2 famotidine (PEPCID) 20 mg tablet Take 1 tablet by mouth at bedtime as needed. 30 tablet 2 ibuprofen (MOTRIN) 800 mg tablet Take 1 tablet by mouth every 8 hours as needed for pain. Take with food. 30 tablet 0 albuterol HFA (PROVENTIL HFA, VENTOLIN HFA) 90 mcg/actuation inhaler Inhale 2 Puffs as instructed every 6 hours as needed for Wheezing/Shortness of Breath. 1 Inhaler 0 predniSONE (DELTASONE) 20 mg tablet Take 2 tablets by mouth once daily for 5 days. 10 tablet 0 benzonatate (TESSALON PERLE) 100 mg capsule Take 2 capsules by mouth three times a day as needed for cough for up to 7 days. 30 capsule 0 No current facility-administered medications for [...] History Tobacco Use Smoking status: Every Day Current packs/day: 0.50 Average packs/day: 0.5 packs/day for 14.0 years (7.0 ttl pk-yrs) Types: Cigarettes Smokeless tobacco: Never Substance Use Topics Alcohol use: No Drug use: Not Currently Types: Marijuana Comment: occasional marijuana Objective BP 174/108 Pulse 110 Temp 37.2 ?C (99 ?F) (Right Tympanic) Resp 20 Wt 91.7 kg (202 lb 2.6 oz) LMP 10/13/2006 SpO2 96% BMI 30.74 kg/m? Physical Exam Vitals reviewed. Constitutional: Appearance: Normal appearance. HENT: Head: Normocephalic and atraumatic. Right Ear: Tympanic membrane, ear canal and external ear normal. Left Ear: Tympanic membrane, ear canal and external ear normal. Nose: Congestion present. Mouth/Throat: Mouth: Mucous membranes are moist. Pharynx: Oropharynx is clear. Cardiovascular: Rate and Rhythm: Normal rate and regular rhythm. Heart sounds: Normal heart sounds. Pulmonary: Effort: Pulmonary effort is normal. No respiratory distress. Breath sounds: Wheezing and rhonchi present. Musculoskeletal: Cervical back: Neck supple. Skin: General: Skin is warm and dry. Neurological: General: No focal deficit present. Mental Status: She is alert and oriented to person, place, and time. Assessment and Plan ASSESSMENT/PLAN: 1. Bronchitis - ICD9: 490, ICD10: J40 Chest x-ray shows no pneumonia. She does have some atelectasis noted. She was given DuoNeb treatment here and feels improved. Patient has been exposed to COVID, high suspicion this is COVID. She is in the window for Paxlovid. Recent labs from August show normal kidney function. Patient was interested in antivirals if positive. Prescription for prednisone and Tessalon also provided. Red flags for ER care discussed. Patient agreeable. - XR CHEST 2V FRONTAL/LA (more content not included)... [facility] 04-08-2024 History of Presen t illness Narrative This note was created using RIISnetriter. Subjective Nabor Herrera is a 48 year old female. HPI Presents with a chief complaint of cough and chest congestion for 2 days. She has had some hot flashes but no recorded fever. She does have a history of asthma and has been wheezing and short of breath. She was exposed to COVID by some family members recently. She has had some diarrhea. No vomiting. She has been using her inhalers. Review of Systems Constitutional: Positive for chills and fatigue. HENT: Positive for congestion and ear pain. Negative for sinus pressure and sinus pain. Respiratory: Positive for cough, shortness of breath and wheezing. Cardiovascular: Negative. Gastrointestinal: Positive for diarrhea. Negative for abdominal pain and vomiting. Genitourinary: Negative. Musculoskeletal: Positive for myalgias. All other systems reviewed and are negative. PAST MEDICAL HISTORY Diagnosis Date Bipolar 1 disorder ([facility]) [facility] psych [facility] DVT (deep venous thrombosis) ([facility]) 2006 Marijuana use Migraine with aura PE (pulmonary embolism) 2006 PTSD (post-traumatic stress disorder) sees psych at [facility] Schizoaffective disorder ([facility]) sees psych at [facility] Urinary tract infection, site not specified 2003 Current Outpatient Medications Medication Sig Dispense Refill topiramate (TOPAMAX) 25 mg tablet Take 1 tablet by mouth daily at bedtime. 30 tablet 2 SUMAtriptan (IMITREX) 100 mg tablet Take 1 tablet (100 mg) by mouth as needed for migraine headache (see administration instructions). 9 tablet 2 baclofen 10 mg tablet Take 1 tablet by mouth three times a day. 90 tablet 2 famotidine (PEPCID) 20 mg tablet Take 1 tablet by mouth at bedtime as needed. 30 tablet 2 ibuprofen (MOTRIN) 800 mg tablet Take 1 tablet by mouth every 8 hours as needed for pain. Take with food. 30 tablet 0 albuterol HFA (PROVENTIL HFA, VENTOLIN HFA) 90 mcg/actuation inhaler Inhale 2 Puffs as instructed every 6 hours as needed for Wheezing/Shortness of Breath. 1 Inhaler 0 predniSONE (DELTASONE) 20 mg tablet Take 2 tablets by mouth once daily for 5 days. 10 tablet 0 benzonatate (TESSALON PERLE) 100 mg capsule Take 2 capsules by mouth three times a day as needed for cough for up to 7 days. 30 capsule 0 No current facility-administered medications for [...] History Tobacco Use Smoking status: Every Day Current packs/day: 0.50 Average packs/day: 0.5 packs/day for 14.0 years (7.0 ttl pk-yrs) Types: Cigarettes Smokeless tobacco: Never Substance Use Topics Alcohol use: No Drug use: Not Currently Types: Marijuana Comment: occasional marijuana Objective BP 174/108 Pulse 110 Temp 37.2 C (99 F) (Right Tympanic) Resp 20 Wt 91.7 kg (202 lb 2.6 oz) LMP 10/13/2006 SpO2 96% BMI 30.74 kg/m Physical Exam Vitals reviewed. Constitutional: Appearance: Normal appearance. HENT: Head: Normocephalic and atraumatic. Right Ear: Tympanic membrane, ear canal and external ear normal. Left Ear: Tympanic membrane, ear canal and external ear normal. Nose: Congestion present. Mouth/Throat: Mouth: Mucous membranes are moist. Pharynx: Oropharynx is clear. Cardiovascular: Rate and Rhythm: Normal rate and regular rhythm. Heart sounds: Normal heart sounds. Pulmonary: Effort: Pulmonary effort is normal. No respiratory distress. Breath sounds: Wheezing and rhonchi present. Musculoskeletal: Cervical back: Neck supple. Skin: General: Skin is warm and dry. Neurological: General: No focal deficit present. Mental Status: She is alert and oriented to person, place, and time. Assessment and Plan ASSESSMENT/PLAN: 1. Bronchitis - ICD9: 490, ICD10: J40 Chest x-ray shows no pneumonia. She does have some atelectasis noted. She was given DuoNeb treatment here and feels improved. Patient has been exposed to COVID, high suspicion this is COVID. She is in the window for Paxlovid. Recent labs from August show normal kidney function. Patient was interested in antivirals if positive. Prescription for prednisone and Tessalon also provided. Red flags for ER care discussed. Patient agreeable. - XR CHEST 2V FRONTAL/LAT - IPRATROPIUM 0.5 MG-ALBUTEROL 3 MG (2.5 MG BASE)/3 ML NEBULIZATION SOLN - COVID & INFLUENZA A/B & RSV PCR, ROUTINE Noreen Tenorio PA-C documented in this encounter [facility] 04-08-2024 Nurse Note Ipratropium [place] & Albuterol Sulfate solution aerosol treatment given per provider's orders. Prior to treatment O2 sat is 96%. Treatment completed. Tolerated well. Dashawn Madden MA [facility] 04-08-2024 Nurse Note Ipratropium [place] & Albuterol Sulfate solution aerosol treatment given per provider's orders. Prior to treatment O2 sat is 96%. Treatment completed. Tolerated well. Dashawn Madden MA documented in this encounter [facility] 04-08-2024 History of Presen t illness Narrative Radiology Service Progress Note PATIENT NAME: Nabor Herrera DATE OF SERVICE: April 08, 2024 TIME: 8:57 AM PATIENT IDENTITY VERIFICATION COMPLETED USING TWO (2) IDENTIFIERS: Name and Date of confirmed by patient verbally. FALL SCREENING: Has the patient had 2 falls in the last year or 1 fall with injury or currently using an Ambulatory Assistive Device (Walker, Cane, Wheelchair, Crutches, etc.)? No PATIENT GENDER DATA: Female. status: : No status: NO. PATIENT RELEVANT IMPLANT DATA REVIEWED: Not Applicable PATIENT PRESENTS WITH AN IMPLANTABLE OR ATTACHED SENIOR PHYSICAL THERAPIST: No RADIOLOGY DEPARTMENT: General X-ray: Exam(s) Completed: Chest X-Ray PERIPHERAL IV DATA: Not applicable SIGNED BY: RT Tyrell(Lynsey) April 08, 2024 8:57 AM documented in this encounter [facility] 04-08-2024 Note HNO ID: [id number] Author: MARISABEL POOLE RT(R) Service: Radiology Author Type: Technologist Type: Progress Notes Filed: 04/08/2024 09:01 Note Text: Radiology Service Progress Note PATIENT NAME: Nabor Herrera DATE OF SERVICE: April 08, 2024 TIME: 8:57 AM PATIENT IDENTITY VERIFICATION COMPLETED USING TWO (2) IDENTIFIERS: Name and Date of confirmed by patient verbally. FALL SCREENING: Has the patient had 2 falls in the last year or 1 fall with injury or currently using an Ambulatory Assistive Device (Walker, Cane, Wheelchair, Crutches, etc.)? No PATIENT GENDER DATA: Female. status: : No status: NO. PATIENT RELEVANT IMPLANT DATA REVIEWED: Not Applicable PATIENT PRESENTS WITH AN IMPLANTABLE OR ATTACHED SENIOR PHYSICAL THERAPIST: No RADIOLOGY DEPARTMENT: General X-ray: Exam(s) Completed: Chest X-Ray PERIPHERAL IV DATA: Not applicable SIGNED BY: RT Tyrell(Lynsey) April 08, 2024 8:57 AM [facility] 03-31-2024 Note HNO ID: [id number] Author: DIONICIO BROWER MD Service: ? Author Type: Physician Type: Progress Notes Filed: 03/31/2024 10:30 Note Text: Patient presents with: Migraine HPI: Patient presents today for office visit for follow up. Hx of migraines. Using Sumatriptan prn. Having 8-10 migraines a month. Migraines are more frequent recently due to life stressors. Pharmacy was only filling 6 tablets for the month whereas she was getting 12 for the month. Another provider had increase the amount of imitrex. She does not use more than one a in 24 hour. Discussed limiting imitrex usage. No focal neuro issues. She may want to consider seeing pain management for her neck at some point. No heartburn. No breathing issues or chest pain. MEDICATIONS: Current Outpatient Medications Medication Sig baclofen 10 mg tablet Take 1 tablet by mouth three times a day. SUMAtriptan (IMITREX) 100 mg tablet Take 1 tablet (100 mg) by mouth as needed for migraine headache (see administration instructions) (Okay to repeat 2nd dose in 2-3 hours if migraine is still present). ofloxacin (FLOXIN) 0.3 % otic solution Use 10 Drops in the right ear once daily. famotidine (PEPCID) 20 mg tablet Take 1 tablet by mouth at bedtime as needed. ibuprofen (MOTRIN) 800 mg tablet Take 1 tablet by mouth every 8 hours as needed for pain. Take with food. albuterol HFA (PROVENTIL HFA, VENTOLIN HFA) 90 mcg/actuation inhaler Inhale 2 Puffs as instructed every 6 hours as needed for Wheezing/Shortness of Breath. No current facility-administered medications for this visit. ALLERGIES: ALLERGIES Allergen Reactions Penicillins Unknown Vicodin [Hydrocodon* GI Upset States that was a reaction with compazine not an allergy. PAST MEDICAL HISTORY Diagnosis Date Bipolar 1 disorder ([facility]) [facility] DVT (deep venous thrombosis) ([facility]) 2006 Marijuana use Migraine with aura PE (pulmonary embolism) 2006 PTSD (post-traumatic stress disorder) [facility] Schizoaffective disorder ([facility]) [facility] psych [facility] Urinary tract infection, site not specified 2003 [...] History Tobacco Use Smoking status: Every Day Current packs/day: 0.50 Average packs/day: 0.5 packs/day for 14.0 years (7.0 ttl pk-yrs) Types: Cigarettes Smokeless tobacco: Never Substance Use Topics Alcohol use: No Drug use: Not Currently Types: Marijuana Comment: occasional marijuana Reviewed current medications, allergies, past medical history, surgical history, family history and social history today. REVIEW OF SYSTEMS All other reviewed and negative other than HPI. HEALTH MAINTENANCE: Reviewed health maintenance issues today and recommended the following in detail. Depression Screening Never done Cervical Cancer Screening Never recommended. Colorectal Cancer Screening -recommended. Mammogram Screening due on 08/07/2022 Influenza Vaccine(1) due on 01/09/2024 Covid-19 Vaccine(3 - season) due on 01/09/2024 VITALS: BP 118/84 Pulse 72 Ht 172.7 cm (5' 8) Wt 97 kg (213 lb 13.5 oz) LMP 10/13/2006 SpO2 96% BMI 32.52 kg/m? Last 4 Encounter Wt Readings: Date: Wt: 03/31/2024 97 kg (213 lb 13.5 oz) 10/22/2023 90.7 kg (200 lb) 10/13/2023 90.7 kg (200 lb) 08/11/2023 88.5 kg (195 lb) PHYSICAL EXAMINATION: General appearance: Well appearing, alert, in no acute distress, well-hydrated, well nourished. Skin: Skin color, texture, turgor normal, no suspicious rashes or lesions Head: Normocephalic, no masses, lesions, tenderness or abnormalities Lungs: Lungs clear to auscultation. No wheezing, rhonchi, rales Heart: RRR without murmur, gallop, or rubs. No ectopy Abdomen: Normal abdominal exam, Abdomen soft, non-tender. Bowel sounds normal. No masses, organomegaly Extremities: No deformities, edema, skin discoloration, clubbing or cyanosis. Good capillary refill. ASSESSMENT/PLAN: 1. Migraine without aura and with status migrainosus, not intractable - ICD9: 346.12, ICD10: G43.001 (primary diagnosis) - make sure not using more than 100 mg a day for imitrex. Add topamax. Discussed risks and benefits of new medication with the patient. Advised them to call if any side effects or questions. - TOPIRAMATE 25 MG TABLET - SUMATRIPTAN 100 MG TABLET 2. Encounter for immunization - ICD9: V03.89, (more content not included)... [facility] 03-31-2024 History of Presen t illness Narrative Patient presents with: Migraine HPI: Patient presents today for office visit for follow up. Hx of migraines. Using Sumatriptan prn. Having 8-10 migraines a month. Migraines are more frequent recently due to life stressors. Pharmacy was only filling 6 tablets for the month whereas she was getting 12 for the month. Another provider had increase the amount of imitrex. She does not use more than one a in 24 hour. Discussed limiting imitrex usage. No focal neuro issues. She may want to consider seeing pain management for her neck at some point. No heartburn. No breathing issues or chest pain. MEDICATIONS: Current Outpatient Medications Medication Sig baclofen 10 mg tablet Take 1 tablet by mouth three times a day. SUMAtriptan (IMITREX) 100 mg tablet Take 1 tablet (100 mg) by mouth as needed for migraine headache (see administration instructions) (Okay to repeat 2nd dose in 2-3 hours if migraine is still present). ofloxacin (FLOXIN) 0.3 % otic solution Use 10 Drops in the right ear once daily. famotidine (PEPCID) 20 mg tablet Take 1 tablet by mouth at bedtime as needed. ibuprofen (MOTRIN) 800 mg tablet Take 1 tablet by mouth every 8 hours as needed for pain. Take with food. albuterol HFA (PROVENTIL HFA, VENTOLIN HFA) 90 mcg/actuation inhaler Inhale 2 Puffs as instructed every 6 hours as needed for Wheezing/Shortness of Breath. No current facility-administered medications for this visit. ALLERGIES: ALLERGIES Allergen Reactions Penicillins Unknown Vicodin [Hydrocodon* GI Upset States that was a reaction with compazine not an allergy. PAST MEDICAL HISTORY Diagnosis Date Bipolar 1 disorder ([facility]) sees psych at [facility] DVT (deep venous thrombosis) ([facility]) 2006 Marijuana use Migraine with aura PE (pulmonary embolism) 2006 PTSD (post-traumatic stress disorder) sees psych at [facility] Schizoaffective disorder ([facility]) sees psych at [facility] Urinary tract infection, site not specified 2003 [...] History Tobacco Use Smoking status: Every Day Current packs/day: 0.50 Average packs/day: 0.5 packs/day for 14.0 years (7.0 ttl pk-yrs) Types: Cigarettes Smokeless tobacco: Never Substance Use Topics Alcohol use: No Drug use: Not Currently Types: Marijuana Comment: occasional marijuana Reviewed current medications, allergies, past medical history, surgical history, family history and social history today. REVIEW OF SYSTEMS All other reviewed and negative other than HPI. HEALTH MAINTENANCE: Reviewed health maintenance issues today and recommended the following in detail. Depression Screening Never done Cervical Cancer Screening Never recommended. Colorectal Cancer Screening -recommended. Mammogram Screening due on 08/07/2022 Influenza Vaccine(1) due on 01/09/2024 Covid-19 Vaccine( season) due on 01/09/2024 VITALS: BP 118/84 Pulse 72 Ht 172.7 cm (5' 8) Wt 97 kg (213 lb 13.5 oz) LMP 10/13/2006 SpO2 96% BMI 32.52 kg/m Last 4 Encounter Wt Readings: Date: Wt: 03/31/2024 97 kg (213 lb 13.5 oz) 10/22/2023 90.7 kg (200 lb) 10/13/2023 90.7 kg (200 lb) 08/11/2023 88.5 kg (195 lb) PHYSICAL EXAMINATION: General appearance: Well appearing, alert, in no acute distress, well-hydrated, well nourished. Skin: Skin color, texture, turgor normal, no suspicious rashes or lesions Head: Normocephalic, no masses, lesions, tenderness or abnormalities Lungs: Lungs clear to auscultation. No wheezing, rhonchi, rales Heart: RRR without murmur, gallop, or rubs. No ectopy Abdomen: Normal abdominal exam, Abdomen soft, non-tender. Bowel sounds normal. No masses, organomegaly Extremities: No deformities, edema, skin discoloration, clubbing or cyanosis. Good capillary refill. ASSESSMENT/PLAN: 1. Migraine without aura and with status migrainosus, not intractable - ICD9: 346.12, ICD10: G43.001 (primary diagnosis) - make sure not using more than 100 mg a day for imitrex. Add topamax. Discussed risks and benefits of new medication with the patient. Advised them to call if any side effects or questions. - TOPIRAMATE 25 MG TABLET - SUMATRIPTAN 100 MG TABLET 2. Encounter for immunization - ICD9: V03.89, ICD10: Z23 - INFLUENZA VACCINE, AGE 6MO-64YR, TRIVALENT (AFLURIA, FLULAVAL, FLUVIRIN, FLUZONE) 3. Chronic neck pain - ICD9: 723.1, 338.29, ICD10: M54.2, G89.29 - consider pain management. 4. Lung nodules - ICD9: 793.19, ICD10: R91.8 - last ct unchanged. 5. Schizoaffective disorder, bipolar type (HCC) - ICD9: 295.70, ICD10: F25.0 - in remission. Had seen counseling center in the past. 6. Bipolar 1 disorder (HCC) - ICD9: 296.7, ICD10: F31.9 - stable. 7. Screening for depression - ICD9: V79.0, ICD10: Z13.31 - DEPRESSION SCREENING 8. Screening for colon cancer - ICD9: V76.51, ICD10: Z12.11 - COLOGUARD 9. Migraine with aura, not intractable, without status migrainosus - ICD9: 346.00, ICD10: G43.109 - SUMATRIPTAN 100 MG TABLET Dionicio Brower MD documented in this encounter [facility] 02-28-2024 Telephone encounter Note Prescription Refill Information The patient has been identified by name and date of : Yes Caregiver verified no other encounters exist for this prescription request: Yes Caregiver confirmed with patient/requestor that no other refills are due, in the near future, with this provider at this time: Yes The last office visit in the department: 01/24/24 Does the patient have a future office visit with this provider/department: No Requested Prescriptions Pending Prescriptions Disp Refills baclofen 10 mg tablet 90 tablet 2 Sig: Take 1 tablet by mouth three times a day. SUMAtriptan (IMITREX) 100 mg tablet 12 tablet 2 Sig: Take 1 tablet (100 mg) by mouth as needed for migraine headache (see administration instructions) (Okay to repeat 2nd dose in 2-3 hours if migraine is still present). Opal Guardado February 28, 2024 10:19 AM [facility] 02-28-2024 Miscellaneous Notes Prescription Refill Information The patient has been identified by name and date of : Yes Caregiver verified no other encounters exist for this prescription request: Yes Caregiver confirmed with patient/requestor that no other refills are due, in the near future, with this provider at this time: Yes The last office visit in the department: 01/24/24 Does the patient have a future office visit with this provider/department: No Requested Prescriptions Pending Prescriptions Disp Refills baclofen 10 mg tablet 90 tablet 2 Sig: Take 1 tablet by mouth three times a day. SUMAtriptan (IMITREX) 100 mg tablet 12 tablet 2 Sig: Take 1 tablet (100 mg) by mouth as needed for migraine headache (see administration instructions) (Okay to repeat 2nd dose in 2-3 hours if migraine is still present). Opal Guardado February 28, 2024 10:19 AM documented in this encounter [facility] 01-24-2024 Instructions Bruna Parker APRN.DAVID - 01/24/2024 1:35 PM EDT Start the zpack. Start the ear drops. Let us know if no better/worsening. documented in this encounter [facility] 01-24-2024 History of Presen t illness Narrative This is a 48 year old female who presents today with: Patient presents with: Acute Visit: R ear pain x couple months HISTORY OF PRESENT ILLNESS: Nabor Herrera is a 48 year old female. Patient presents with: Acute Visit: R ear pain x couple months Pt presents today with complaint of right ear pain. Started Wednesday with itching. Wednesday started with pain and today the pain is closer together. Itches all the time and gets a stabbing pain. Intense when it hits -- makes her nauseated. + popping/cracking. Gets worse with sneezing. Chronically doesn't hear well out of that ear. Had some cough/congestion over the weekend. Hot compress and it did drain some. She has been having a lot of problems with ear infections in the last couple of years. PAST MEDICAL HISTORY: PAST MEDICAL HISTORY Diagnosis Date Bipolar 1 disorder ([facility]) sees psych at [facility] DVT (deep venous thrombosis) ([facility]) 2006 Marijuana use Migraine with aura PE (pulmonary embolism) 2006 PTSD (post-traumatic stress disorder) sees psych at [facility] Schizoaffective disorder ([facility]) sees psych at [facility] Urinary tract infection, site not specified 2004 PAST SURGICAL HISTORY Procedure Laterality Date DELIVERY ONLY x 3 , low cervical LIG/TRNSXJ FLP TUBE ABDL/VAG APPR UNI/BI 2002 Tubal ligation PAST SURGICAL HISTORY OF Left 2017 I&D left leg wound TOTAL ABDOMINAL HYSTERECT W/WO RMVL TUBE OVARY -says somethign cancerous or precancerous ALLERGIES Penicillins and Vicodin [Hydrocodone-Acetaminophen] MEDICATIONS Current Outpatient Medications Medication Sig baclofen 10 mg tablet Take 1 tablet by mouth three times a day. SUMAtriptan (IMITREX) 100 mg tablet Take 1 tablet (100 mg) by mouth as needed for migraine headache (see administration instructions) (Okay to repeat 2nd dose in 2-3 hours if migraine is still present). hydrOXYzine HCl (ATARAX) 25 mg tablet Take 1 tablet by mouth every 6 hours as needed for itching/rash or anxiety. QUEtiapine (SEROQUEL) 50 mg tablet Take 1 tablet by mouth daily at bedtime. famotidine (PEPCID) 20 mg tablet Take 1 tablet by mouth at bedtime as needed. ofloxacin (FLOXIN) 0.3 % otic solution Use 10 Drops in the right ear once daily. benzonatate (TESSALON PERLES) 100 mg capsule Take 2 capsules by mouth three times a day as needed. ibuprofen (MOTRIN) 800 mg tablet Take 1 tablet by mouth every 8 hours as needed for pain. Take with food. gabapentin (NEURONTIN) 400 mg capsule Take 1 [...] History Tobacco Use Smoking status: Every Day Current packs/day: 0.50 Average packs/day: 0.5 packs/day for 14.0 years (7.0 ttl pk-yrs) Types: Cigarettes Smokeless tobacco: Never Substance Use Topics Alcohol use: No Drug use: Not Currently Types: Marijuana Comment: occasional marijuana EXAM: BP 128/70 Pulse 66 Resp 16 LMP 10/13/2006 SpO2 98% PHYSICAL EXAM: General Appearance: Well appearing, alert, in no acute distress, well-hydrated, well nourished.. Skin: Skin color, texture, turgor normal, no suspicious rashes or lesions. Head: Normocephalic, no masses, lesions, tenderness or abnormalities. Eyes: Anicteric sclera. Pupils are equally round and reactive to light. Extraocular movements are intact. . Ears: External ears normal, canals clear, Positive findings: R TM: erythematous and dull, L TM: normal, erythema and edema of ear canal: on right. Neck: Supple, mild right anterior adenopathy. Lungs: Lungs clear to auscultation. No wheezing, rhonchi, rales.. Heart: RRR without murmur, gallop, or rubs. No ectopy. Neurologic: Gait normal. ASSESSMENT/PLAN: 1. Acute otitis media, right - ICD9: 382.9, ICD10: H66.91 Start zpack and drops. Notify provider if no better or any worsening. - AZITHROMYCIN 250 MG TABLET - OFLOXACIN 0.3 % EAR DROPS Discussed treatment plan and patient voices understanding. Patient's questions answered appropriately. Medications and potential side effects were discussed and patient voices understanding. Return to the office as scheduled or as needed for worsening/no improvement. Bruna Parker APRN.DAVID documented in this encounter [facility] 12-16-2023 Telephone encounter Note Prescription Refill Information The patient has been identified by name and date of : Yes Caregiver verified no other encounters exist for this prescription request: Yes Caregiver confirmed with patient/requestor that no other refills are due, in the near future, with this provider at this time: Yes The last office visit in the department: 08-11-23 Does the patient have a future office visit with this provider/department: No Requested Prescriptions Pending Prescriptions Disp Refills baclofen 10 mg tablet 90 tablet 2 Sig: Take 1 tablet by mouth three times a day. SUMAtriptan (IMITREX) 100 mg tablet 12 tablet 2 Sig: Take 1 tablet (100 mg) by mouth as needed for migraine headache (see administration instructions) (Okay to repeat 2nd dose in 2-3 hours if migraine is still present). Brenda Guardado December 16, 2023 2:40 PM [facility] 12-16-2023 Miscellaneous Notes Prescription Refill Information The patient has been identified by name and date of : Yes Caregiver verified no other encounters exist for this prescription request: Yes Caregiver confirmed with patient/requestor that no other refills are due, in the near future, with this provider at this time: Yes The last office visit in the department: 08-11-23 Does the patient have a future office visit with this provider/department: No Requested Prescriptions Pending Prescriptions Disp Refills baclofen 10 mg tablet 90 tablet 2 Sig: Take 1 tablet by mouth three times a day. SUMAtriptan (IMITREX) 100 mg tablet 12 tablet 2 Sig: Take 1 tablet (100 mg) by mouth as needed for migraine headache (see administration instructions) (Okay to repeat 2nd dose in 2-3 hours if migraine is still present). Brenda Guardado December 16, 2023 2:40 PM documented in this encounter [facility] 11-15-2023 Telephone encounter Note Prescription Refill Information The patient has been identified by name and date of : Yes Caregiver verified no other encounters exist for this prescription request: Yes Caregiver confirmed with patient/requestor that no other refills are due, in the near future, with this provider at this time: Yes The last office visit in the department: 10/22/2023 Does the patient have a future office visit with this provider/department: Yes Requested Prescriptions Pending Prescriptions Disp Refills hydrOXYzine HCl (ATARAX) 25 mg tablet 30 tablet 0 Sig: Take 1 tablet by mouth every 6 hours as needed for itching/rash or anxiety. QUEtiapine (SEROQUEL) 50 mg tablet 30 tablet 0 Sig: Take 1 tablet by mouth daily at bedtime. Inez Lugo November 15, 2023 6:03 PM [facility] 11-15-2023 Miscellaneous Notes Prescription Refill Information The patient has been identified by name and date of : Yes Caregiver verified no other encounters exist for this prescription request: Yes Caregiver confirmed with patient/requestor that no other refills are due, in the near future, with this provider at this time: Yes The last office visit in the department: 10/22/2023 Does the patient have a future office visit with this provider/department: Yes Requested Prescriptions Pending Prescriptions Disp Refills hydrOXYzine HCl (ATARAX) 25 mg tablet 30 tablet 0 Sig: Take 1 tablet by mouth every 6 hours as needed for itching/rash or anxiety. QUEtiapine (SEROQUEL) 50 mg tablet 30 tablet 0 Sig: Take 1 tablet by mouth daily at bedtime. Inez Lugo November 15, 2023 6:03 PM documented in this encounter [facility] 11-10-2023 Telephone encounter Note Appears the insurance is still reviewing request. [facility] 11-10-2023 Miscellaneous Notes Appears the insurance is still reviewing request. Still pending review from the insurance company As of 10/24 still pending review from insurance. Message to call office to schedule DIRECTOR OF REHABILITATION AND WELLNESS appointment with Tiffanie. Tiffanie can get her in much sooner, if she is able to do my chart. Are we able to see if she can set up. documented in this encounter [facility] 11-03-2023 Telephone encounter Note Still pending review from the insurance company [facility] 10-25-2023 Telephone encounter Note As of 10/24 still pending review from insurance. [facility] 10-22-2023 History of Presen t illness Narrative Patient presents with: Follow Up HPI: Patient presents today for office visit for 1 week follow up. Sister suddenly. Services are 11/07/23. Restarted back on hydroxyzine and Seroquel. Taking meds at bedtime. Feels they help her sleep better. No nightmares. Wakes up feeling rested. Still self medicating with THC. Doing better. States when she was here a week ago she felt like she was either going to be put in a mental institute or go to [facility]. Refers to not feeling this way anymore. Waiting to see Tiffanie. Has been keeping herself busy around the house to keep her mind off things. Going to try and go back to work Wednesday. Requesting a note just stating she has been seen in office since sisters passing. Not suicidal or homicidal. Overall is somewhat better. No side effects from the meds. No manic issues. Note was copied and pasted, without alteration from last ov: Sister suddenly yesterday. Is a life claims examiner's case. Not doing well. Tearful. Has not left her room yet. She felt her sister was who kept her together. No suicidal ideation. Her sister has been living with her for 7 years. Has been self medicating with THC. No manic episodes. No sleeping. Having issues focusing. No recent hallucinations or delusions. Kept thinking she heard things last night but was unsure if just related her her grief. Used to see the counseling center. Is off work until Wednesday. Was on seroquel and vistaril in the past. MEDICATIONS: Current Outpatient Medications Medication Sig hydrOXYzine HCl (ATARAX) 25 mg tablet Take 1 tablet by mouth every 6 hours as needed for itching/rash or anxiety. QUEtiapine (SEROQUEL) 50 mg tablet Take 1 tablet by mouth daily at bedtime. baclofen 10 mg tablet Take 1 tablet by mouth three times a day. SUMAtriptan (IMITREX) 100 mg tablet Take 1 tablet (100 mg) by mouth as needed for migraine headache (see administration instructions) (Okay to repeat 2nd dose in 2-3 hours if migraine is still present). ofloxacin (FLOXIN) 0.3 % otic solution Use 10 Drops in the right ear once daily. benzonatate (TESSALON PERLES) 100 mg capsule Take 2 capsules by mouth three times a day as needed. ibuprofen (MOTRIN) 800 mg tablet Take 1 tablet by mouth every 8 hours as needed for pain. Take with food. gabapentin (NEURONTIN) 400 mg capsule Take 1 [...] MEDICAL HISTORY Diagnosis Date Bipolar 1 disorder ([facility]) [facility] D[facility] (deep [facility] thrombosis) ([facility]) 2006 Marijuana use Migraine with aura PE (pulmonary embolism) 2006 PTSD (post-traumatic stress disorder) sees psych [facility] [place] [facility] Schizoaffective disorder ([facility]) sees psych at [facility] [place] Urinary tract infection, site not specified 2003 [...] and social history today. REVIEW OF SYSTEMS Has had some cough recently. Brings up mucous. Happens randomly. Having more heartburn recently. All other reviewed and negative other than HPI. HEALTH MAINTENANCE: Reviewed health maintenance issues today and recommended the following in detail. Cervical Cancer Screening Never done Colorectal Cancer Screening Never done Mammogram Screening due on 08/07/2022 Covid-19 Vaccine( season) due on 01/08/2023 Behavioral Health Screening Never done VITALS: BP 94/72 Pulse 102 Ht 172.7 cm (5' 8) Wt 90.7 kg (200 lb) LMP 10/13/2006 SpO2 99% BMI 30.41 kg/m Last 4 Encounter Wt Readings: Date: Wt: 10/22/2023 90.7 kg (200 lb) 10/13/2023 90.7 kg (200 lb) 08/11/2023 88.5 kg (195 lb) 05/25/2023 94.8 kg (209 lb) PHYSICAL EXAMINATION: General appearance: Well appearing, alert, in no acute distress, well-hydrated, well nourished. Skin: Skin color, texture, turgor normal, no suspicious rashes or lesions Head: Normocephalic, no masses, lesions, tenderness or abnormalities Lungs: Lungs clear to auscultation. No wheezing, rhonchi, rales Heart: RRR without murmur, gallop, or rubs. No ectopy Abdomen: Normal abdominal exam, Abdomen soft, non-tender. Bowel sounds normal. No masses, organomegaly Extremities: No deformities, edema, skin discoloration, clubbing or cyanosis. Good capillary refill. Better eye contact. ASSESSMENT/PLAN: 1. Grief reaction - ICD9: 309.0, ICD10: F43.21 (primary diagnosis) - continue meds. See psych. Call if any issues. Follow up in four weeks. 2. Gastroesophageal reflux disease without esophagitis - ICD9: 530.81, ICD10: K21.9 - Discussed risks and benefits of new medication with the patient. Advised them to call if any side effects or questions. - Call if symptoms worsen at all or if not better in one to two weeks - FAMOTIDINE 20 MG TABLET Dionicio Brower MD documented in this encounter [facility] 10-14-2023 Telephone encounter Note Message to call office to schedule DIRECTOR OF [facility] appointment with Tiffanie. [facility] 10-13-2023 Telephone encounter Note Tiffanie can get her in much sooner, if she is able to do my chart. Are we able to see if she can set up. [facility] 10-13-2023 History of Presen t illness Narrative Patient presents with: Discussion HPI: Patient presents today for office visit for acute visit. Sister suddenly yesterday. Is a life claims examiner's case. Not doing well. Tearful. Has not left her room yet. She felt her sister was who kept her together. No suicidal ideation. Her sister has been living with her for 7 years. Has been self medicating with THC. No manic episodes. No sleeping. Having issues focusing. No recent hallucinations or delusions. Kept thinking she heard things last night but was unsure if just related her her grief. Used to see the counseling center. Is off work until Wednesday. Was on seroquel and vistaril in the past. MEDICATIONS: Current Outpatient Medications Medication Sig baclofen 10 mg tablet Take 1 tablet by mouth three times a day. SUMAtriptan (IMITREX) 100 mg tablet Take 1 tablet (100 mg) by mouth as needed for migraine headache (see administration instructions) (Okay to repeat 2nd dose in 2-3 hours if migraine is still present). albuterol HFA (PROVENTIL HFA, VENTOLIN HFA) 90 mcg/actuation inhaler Inhale 2 Puffs as instructed every 6 hours as needed for Wheezing/Shortness of Breath. benzonatate (TESSALON PERLES) 100 mg capsule Take 1 capsule by mouth three times a day as needed. ofloxacin (FLOXIN) 0.3 % otic solution Use 10 Drops in the right ear once daily. benzonatate (TESSALON PERLES) 100 mg capsule Take 2 capsules by mouth three times a day as needed. ibuprofen (MOTRIN) 800 mg tablet Take 1 [...] 1 application to affected area twice daily. No current facility-administered medications for this visit. ALLERGIES: ALLERGIES Allergen Reactions Penicillins Unknown Vicodin [Hydrocodon* GI Upset States that was a reaction with compazine not an allergy. PAST MEDICAL HISTORY Diagnosis Date Bipolar 1 disorder ([facility]) [facility] DVT (deep venous thrombosis) ([facility]) 2006 Marijuana use Migraine with aura PE (pulmonary embolism) 2006 PTSD (post-traumatic stress disorder) [facility] Schizoaffective disorder ([facility]) [facility] Urinary tract [...] and social history today. REVIEW OF SYSTEMS All other reviewed and negative other than HPI. VITALS: BP 134/82 Pulse 87 Wt 90.7 kg (200 lb) LMP 10/13/2006 SpO2 98% BMI 30.41 kg/m Last 4 Encounter Wt Readings: Date: Wt: 10/13/2023 90.7 kg (200 lb) 08/11/2023 88.5 kg (195 lb) 05/25/2023 94.8 kg (209 lb) 05/11/2023 95.9 kg (211 lb 6.4 oz) PHYSICAL EXAMINATION: General appearance: tearful. Answering appropriately. Poor eye contact. ASSESSMENT/PLAN: 1. Grief reaction - ICD9: 309.0, ICD10: F43.21 (primary diagnosis) - willing to see psychiatry. Readd vistaril and Seroquel. Discussed risks and benefits of new medication with the patient. Advised them to call if any side effects or questions. - contracted to call us if worsens or contact crisis. - CONSULT TO PSYCHIATRY 2. Primary insomnia - ICD9: 307.42, ICD10: F51.01 - CONSULT TO PSYCHIATRY 3. Bipolar 1 disorder (HCC) - ICD9: 296.7, ICD10: F31.9 - CONSULT TO PSYCHIATRY 4. PTSD (post-traumatic stress disorder) - ICD9: 309.81, ICD10: F43.10 - CONSULT TO PSYCHIATRY 5. Schizoaffective disorder, bipolar type (HCC) - ICD9: 295.70, ICD10: F25.0 - CONSULT TO PSYCHIATRY Dionicio Brower MD RTO in one week documented in this encounter [facility] 09-17-2023 Telephone encounter Note Last OV 08/11/23 [facility] 09-17-2023 Miscellaneous Notes Last OV 08/11/23 Patient has been identified by name and date of : Yes Requested Prescriptions Pending Prescriptions Disp Refills baclofen 10 mg tablet 90 tablet 2 Sig: Take 1 tablet by mouth three times a day. SUMAtriptan (IMITREX) 100 mg tablet 12 tablet 2 Sig: Take 1 tablet (100 mg) by mouth as needed for migraine headache (see administration instructions) (Okay to repeat 2nd dose in 2-3 hours if migraine is still present). RX INSTRUCTIONS: Patient aware RX will be sent to pharmacy. No need to notify patient. Maeve Núñez Pss documented in this encounter [facility] 09-17-2023 Telephone encounter Note Patient has been identified by name and date of : Yes Requested Prescriptions Pending Prescriptions Disp Refills baclofen 10 mg tablet 90 tablet 2 Sig: Take 1 tablet by mouth three times a day. SUMAtriptan (IMITREX) 100 mg tablet 12 tablet 2 Sig: Take 1 tablet (100 mg) by mouth as needed for migraine headache (see administration instructions) (Okay to repeat 2nd dose in 2-3 hours if migraine is still present). RX INSTRUCTIONS: Patient aware RX will be sent to pharmacy. No need to notify patient. Maeve Núñez Pss [facility] 09-03-2023 Telephone encounter Note Called and updated patient, voiced understanding. Kamala Ashraf LPN September 03, 2023 10:22 AM [facility] 09-03-2023 Miscellaneous Notes Called and updated patient, voiced understanding. Kamala Ashraf LPN September 03, 2023 10:22 AM Recheck is ok. documented in this encounter [facility] 09-03-2023 Telephone encounter Note Recheck is ok. [facility] 08-12-2023 Miscellaneous Notes Patient informed and verbalized understanding. Gricelda Bucio MA Chest xray was negative. documented in this encounter [facility] 08-12-2023 Miscellaneous Notes Patient informed and verbalized understanding. Gricelda Bucio MA She is correct that her potassium is low again. Take potassium she has at home once a day for four days. Recheck labs in one one week. It is likely due to her vomiting and diarrhea. If she needs more potassium, let me know Let her know covid and flu and rsv were negative. Call if symptoms worsen at all or if not better in one to two weeks documented in this encounter [facility] 08-11-2023 History of Presen t illness Narrative Radiology Service Progress Note PATIENT NAME: Nabor Herrera DATE OF SERVICE: August 11, 2023 TIME: 4:51 PM PATIENT IDENTITY VERIFICATION COMPLETED USING TWO [...] PATIENT PRESENTS WITH AN IMPLANTABLE OR ATTACHED SENIOR PHYSICAL THERAPIST: No RADIOLOGY DEPARTMENT: General X-ray: Exam(s) Completed: Chest X-Ray PERIPHERAL IV DATA: Not applicable SIGNED BY: RT Aliiva(R) August 11, 2023 4:51 PM documented in this encounter [facility] 08-11-2023 History of Presen t illness Narrative Chief Complaint Patient presents with: Pain HPI Nabor Herrera is a 48 year old female who presents here today for uri symptoms. Started Wednesday morning with sinuses and then sore throat and 102.4 on Wednesday and then vomiting and diarrhea. Now has cough/congestion. Been taking tylenol for fever. Ears are ringing. Drinking fluids. Is more wheezy. She is using proventil. Patient has also been having charley horses. She has had issues with potassium in the past so she started taking 50 mg of potassium. Past medical history, appointments, medications, allergies reviewed. Previous Medical History PAST MEDICAL HISTORY Diagnosis Date Bipolar 1 disorder ([facility]) [facility] DVT (deep venous thrombosis) ([facility]) 2006 Marijuana use Migraine with aura PE (pulmonary embolism) 2006 PTSD (post-traumatic stress disorder) [facility] Schizoaffective disorder ([facility]) [facility] Urinary tract infection, site not specified 2003 Previous Surgical History PAST SURGICAL HISTORY Procedure Laterality Date DELIVERY ONLY x 3 , low cervical LIG/TRNSXJ FLP TUBE ABDL/VAG APPR UNI/BI 2001 Tubal ligation PAST SURGICAL HISTORY OF Left 2017 I&D left leg wound TOTAL ABDOMINAL HYSTERECT W/WO RMVL TUBE OVARY -says somethign cancerous or precancerous Family History FAMILY HISTORY Problem Relation Age of Onset Psychiatry Mother Hypertension Father Diabetes Father Emphysema Paternal Grandfather Breast Cancer Maternal Grandmother Cancer Paternal Grandmother lung Thyroid Sister Psychiatry Sister 2 sisters Patient Allergies ALLERGIES Allergen Reactions Penicillins Unknown Vicodin [Hydrocodon* GI Upset States that was a reaction with compazine not an allergy. Current Medications Current Outpatient Medications on File Prior to Visit Medication Sig baclofen 10 mg tablet Take 1 tablet by mouth three times a day as needed (muscle spasms). (Patient taking differently: Take 10 mg by mouth three times a day.) SUMAtriptan (IMITREX) 100 mg tablet Take 1 tablet (100 mg) by mouth as needed for migraine headache (see administration instructions) (Okay to repeat 2nd dose in 2-3 hours if migraine is still present). benzonatate (TESSALON PERLES) 100 mg capsule Take 2 capsules by mouth three times a day as needed. ibuprofen (MOTRIN) 800 mg tablet Take 1 tablet by mouth every 8 hours as needed for pain. Take with food. albuterol HFA (PROVENTIL HFA, VENTOLIN HFA) 90 mcg/actuation inhaler Inhale 2 Puffs as instructed every 6 hours as needed for Wheezing/Shortness of Breath. ofloxacin (FLOXIN) 0.3 % otic solution Use 10 Drops in the right ear once daily. gabapentin (NEURONTIN) 600 mg tablet Take 1 tablet by mouth three times daily for 90 days. gabapentin (NEURONTIN) 400 mg capsule Take 1 capsule by mouth three times daily for 90 days. lamoTRIgine (LAMICTAL) 100 mg tablet Take 1 tablet by mouth once daily. (Patient not taking: Reported on 08/11/2023) triamcinolone acetonide (KENALOG) 0.1 % cream Apply 1 application to affected area twice daily. No current facility-administered medications on file prior to visit. Social History Social History Tobacco Use Smoking status: Every Day Packs/day: 0.50 Years: 14.00 Additional pack years: 0.00 Total pack years: 7.00 Types: Cigarettes Smokeless tobacco: Never Substance Use Topics Alcohol use: No Drug use: Not Currently Types: Marijuana Comment: occasional marijuana Review of Symptoms REVIEW OF SYSTEMS As above. EXAM: BP 140/96 (BP Site: Right Arm, BP Position: Sitting, BP Cuff Size: Regular Adult) Pulse 110 Temp 36.5 C (97.7 F) (Tympanic) Resp 22 Wt 88.5 kg (195 lb) LMP 10/13/2006 SpO2 98% BMI 29.65 kg/m Skin: Skin color, texture, turgor normal, no suspicious rashes or lesions. Head: Normocephalic, no masses, lesions, tenderness or abnormalities. Ears: External ears normal, canals clear. Right tm is red and full. Nose/Sinuses: Nares normal, septum midline, mucosa normal, no drainage or sinus tenderness. Oropharynx: Lips, mucosa, and tongue normal, teeth and gums normal, oropharynx normal. Neck: Supple, no adenopathy Lungs: bilateral rhonchi. Moving air well. Moist cough. . Heart: RRR without murmur, gallop, or rubs. No ectopy. Abdomen: Normal abdominal exam, Abdomen soft, non-tender. Bowel sounds normal. No masses, organomegaly. Extremities: No deformities, edema, skin discoloration, clubbing or cyanosis. Good capillary refill. . ASSESSMENT/PLAN: 1. URI, acute - ICD9: 465.9, ICD10: J06.9 (primary diagnosis) - Discussed risks and benefits of new medication with the patient. Advised them to call if any side effects or questions. Red flags for re-assessment reviewed with patient in detail. Call if symptoms worsen at all or if not better in one to two weeks Reviewed diagnosis and treatment options in detail. Questions were answered. Patient expressed understanding of treatment plan. - COVID & INFLUENZA A/B & RSV NAAT, ROUTINE - CBC + DIFF - BASIC METABOLIC PNL - MAGNESIUM BLD - COVID & INFLUENZA A/B & RSV NAAT, ROUTINE - XR CHEST 2V FRONTAL/LAT - BENZONATATE 100 MG CAPSULE 2. Leg cramps - ICD9: 729.82, ICD10: R25.2 - COVID & INFLUENZA A/B & RSV NAAT, ROUTINE - CBC + DIFF - BASIC METABOLIC PNL - MAGNESIUM BLD 3. Acute otitis media, right - ICD9: 382.9, ICD10: H66.91 - DOXYCYCLINE MONOHYDRATE 100 MG TABLET - PREDNISONE 20 MG TABLET 4. Bronchitis - ICD9: 490, ICD10: J40 - DOXYCYCLINE MONOHYDRATE 100 MG TABLET - PREDNISONE 20 MG TABLET - XR CHEST 2V FRONTAL/LAT - BENZONATATE 100 MG CAPSULE Dionicio Brower MD documented in this encounter [facility] 07-03-2023 Miscellaneous Notes Patient has been identified by name and date of : Yes, Provider DIONICIO BROWER Date 07/03/23 Time 0939 Patient phones for refill(s): Requested Prescriptions Pending Prescriptions Disp Refills baclofen 10 mg tablet 90 tablet 2 Sig: Take 1 tablet by mouth three times a day as needed (muscle spasms). SUMAtriptan (IMITREX) 100 mg tablet 12 tablet 2 Sig: Take 1 tablet (100 mg) by mouth as needed for migraine headache (see administration instructions) (Okay to repeat 2nd dose in 2-3 hours if migraine is still present). Date of last office visit in primary care: 05/25/2023 Date of next office visit in primary care: 08/11/2023 Please advise. Thank you. Ruthann Miller. documented in this encounter [facility] 06-22-2023 History of Presen t illness Narrative Images from the original note were not included. PLASTIC SURGERY DEPARTMENT [facility] Hand Surgery Note [x] New referred by []self []physician.......... [] Follow-up CC: ...bilateral wrist pain........... ? HPI: Nabor is a 47 year old female who presents today for bilateral wrist pain. Pain in the right wrist has been present for a few months, left wrist started when she fell at work a few weeks ago and was told she had a wrist sprain at an OSH. She reprots clicking of the R thumb when bending. She was diagnosed with De Quervains tenosynovitis in 2021 and referred to ortho but did not seek treatment. 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 Recreational activities with hands: ........ Dominant Hand: right [x] left [] Date onset symptoms: ...R 1 year, L several weeks....... Symptoms location -[] RIGHT [] worse -[] LEFT [] worse Fingers 1[x] 2[] 3[] 4[] 5 [] 1[] 2[] 3[] 4[] 5 []. []Tingling []Numbness []Pain Symptoms location -[] RIGHT [] worse -[] LEFT [] worse Hand [x]Radial []volar [] ulnar [] dorsal []Radial [x]volar [] ulnar [x] dorsal wrist [x]Radial []volar [] ulnar [x] dorsal []Radial [x]volar [] ulnar [x] dorsal forearm []Radial []volar [] ulnar [] dorsal []Radial []volar [] ulnar [] dorsal elbow []Radial []volar [] ulnar [] dorsal []Radial []volar [] ulnar [] dorsal arm [] [] shoulder [] [] neck [] [] []Tingling []Numbness [x]Pain Overall PAIN Now 0[] 1[] 2[] 3[] 4[] 5[] 6[] 7[] 8[] 9[] 10[] Average 0[] 1[] 2[] 3[] 4[] 5[] 6[] 7[] 8[] 9[] 10[] Rest 0[] 1[] 2[] 3[] 4[] 5[] 6[] 7[] 8[] 9[] 10[] Function 0[] 1[] 2[] 3[] 4[] 5[] 6[] 7[] 8[] 9[] 10[] Quality []sharp []dull []aching []sore []taut []pulled []torsion []shooting []pricking []pressing []lacerating []pinching []squeezing []drilling []spasm [] throbbing []burning []cramping []cutting []heavy []itchy []radiating [] electrical []stinging [] cold intolerance How frequently during the day (%): ..worse with activity......... Night Symptoms [] Associated Signs/Symptoms Swelling [] Stiffness [] Weakness [] Prior Trauma? []No [x]Yes Pain? []same [x]better []worse over time Intervention/Prior Treatment: []no [x]yes [x]Decrease activity level and using heat/ ice []PT/OT,chiropractic treatments, or medically directed home exercise program for..........weeks in the last..........months (date started:...........) [x]Medications []Steroid injection [x]Splint/cast []Surgery............... IMPROVEMENT WITH PREVIOUS STEROID INJECTION: NO [] YES [] ............% []R []L []R=L []R>L []R<L Symptoms improved: Tingling [] Numbness [] Pain [] ANY TINGLING OR NUMBNESS IN THE FEET: NO [] YES [] .............. No results found for: HBA1C Last 10 Encounter BP Readings: Date: BP: 05/25/2023 154/96 05/11/2023 122/82 04/26/2023 142/90 01/06/2023 122/80 09/21/2022 122/74 04/22/2022 114/82 04/08/2022 122/72 03/31/2022 110/78 03/16/2022 144/92 03/12/2022 118/74 CBC Latest Ref Rng & Units 07/19/2020 07/24/2021 02/20/2022 WBC 3.70 - 11.00 k/uL 7.05 6.49 9.14 RBC 3.90 - 5.20 m/uL 4.31 4.35 3.86(L) HEMOGLOBIN 11.5 - 15.5 g/dL 13.3 13.5 12.5 HEMATOCRIT 36.0 - 46.0 % 39.6 41.0 38.0 MCV 80.0 - 100.0 fL 91.9 94.3 98.4 MCH 26.0 - 34.0 pg 30.9 31.0 32.4 MCHC 30.5 - 36.0 g/dL 33.6 32.9 32.9 RDW-CV 11.5 - 15.0 % 13.7 14.1 13.8 PLATELETS 150 - 400 k/uL 266 277 234 MPV 9.0 - 12.7 fL 10.7 11.4 10.5 BASO% % 0.7 0.6 - ABS NEUT (ANC) 1.45 - 7.50 k/uL 4.55 3.70 - ABS LYMPH 1.00 - 4.00 k/uL 1.81 1.93 - ABS MONO <0.87 k/uL 0.51 0.63 - ABS EOSIN <0.46 k/uL 0.11 0.17 - ABS BASO <0.11 k/uL 0.05 0.04 - NRBC /100 WBC - 0.0 - DIFF TYPE - Auto Diff - - CMP Latest Ref Rng & Units 07/19/2020 07/24/2021 02/20/2022 SODIUM 136 - 144 mmol/L 141 141 140 POTASSIUM 3.7 - 5.1 mmol/L 3.7 3.4(L) 4.6 CHLORIDE 97 - 105 mmol/L 107(H) 106(H) 106(H) CO2 22 - 30 mmol/L 22 24 24 GLUCOSE 74 - 99 mg/dL 80 84 95 BUN 7 - 21 mg/dL 15 13 16 CREATININE 0.58 - 0.96 mg/dL 0.67 0.67 0.75 EGFR >=60 mL/min/1.73m - 111 101 EGFR-ALL OTHER RACES . >60 - - EGFR- - >60 - - PROTEIN, TOTAL 6.3 - 8.0 g/dL 6.9 6.6 6.5 ALBUMIN 3.9 - 4.9 g/dL 4.4 4.1 4.1 CALCIUM, TOTAL 8.5 - 10.2 mg/dL 9.3 9.2 9.3 BILIRUBIN, TOTAL 0.2 - 1.3 mg/dL 0.3 <0.2(L) <0.2(L) AST 13 - 35 U/L 13 17 15 ALT 7 - 38 U/L 10 11 13 ALKALINE PHOSPHATASE 34 - 123 U/L 119 94 92 YES NO Smoking, vaping, nicotine, cannabis [x] [] Cigarettes/ day.1/2 ppd... ? Hormone replacement (contraceptive, post menopause hormone treatment) [] [x] Medication.... Diabetes [] [x] []Type 1? []Type 2 ?Last A1c:..... Systemic inflammatory diseases [] [x] []RA []Gout []Other... Hypertension [] [x] Meds:....... Heart disease or pacemaker [] [x] ............ Family history blood clots [] [x] Personal history blood clots [] [x] Anticoagulation (aspirin, coumadin, xarelto,etc) [] [x] What........... Reason:........... Immunosuppressants (steroid, biologic meds infusion, etc) [] [x] What........... Reason:........... Upper extremity AV fistula (dialysis) or vessels injury or disease [] [x] Overhead activities [] [x] Cervical problems [] [x] []C3 []C4 []C5 []C6 []C7 []C8 []T1 []Conservative []Fusion []Discectomy []Other... Pt AGAINST blood transfusion? [] [x] Objective: PAST MEDICAL HISTORY Diagnosis Date Bipolar 1 disorder (HCC) [facility] psych at [facility] DVT (deep venous thrombosis) ([facility]) 2006 Marijuana use Migraine with aura PE [...] TUBE OVARY -says somethign cancerous or precancerous Current Outpatient Medications Medication Sig Dispense Refill ofloxacin (FLOXIN) 0.3 % otic solution Use 10 Drops in the right ear once daily. 5 mL 0 benzonatate (TESSALON PERLES) 100 mg capsule Take 2 capsules by mouth three times a day as needed. 30 capsule 0 SUMAtriptan (IMITREX) 100 mg tablet [...] pain. Take with food. 30 tablet 0 gabapentin (NEURONTIN) 600 mg tablet Take 1 tablet by mouth three times daily for 90 days. 90 tablet 5 gabapentin (NEURONTIN) 400 mg capsule Take 1 capsule by mouth three times daily for 90 days. 90 capsule 0 lamoTRIgine (LAMICTAL) 100 mg tablet Take [...] No current facility-administered medications for this visit. ALLERGIES Allergen Reactions Penicillins Unknown Vicodin [Hydrocodon* GI Upset States that was a reaction with compazine not an allergy. There is no height or weight on file to calculate BMI. Estimated body surface area is 2.13 meters squared as calculated from the following: Height as of 05/25/23: 172.7 cm (5' 8). Weight as of 05/25/23: 94.8 kg (209 lb). LMP 10/13/2006 IMAGING (date/result): XRAY R wrist 05/25/2023 IMPRESSION: No radiographic evidence of acute osseous injury. Stable round 5 mm calcification adjacent to the ulnar styloid. EMG/NCS (date/result): ROS: All negative except for: GENERAL: []weight loss []malaise []fevers HEENT: []frequent or significant headaches []changes in hearing []change in vision []nose bleeds []other nasal problems NECK: []lumps []goiter []pain and significant neck swelling RESPIRATORY: []cough []hemoptysis []wheezing []COPD []dyspnea []shortness of breath CARDIOVASCULAR: []chest pain []leg swelling []hypertension []CHF []palpitations GI: []nausea []vomiting []diarrhea MUSCULOSKELETAL: see HPI SKIN: [] skin lesions []rash []itching PSYCH: []sleep disturbance []mood disorder []recent psychosocial stressors HEMATOLOGY/LYMPHOLOGY: []prolonged bleeding []bruising easily []swollen nodes ENDOCRINE: []cold intolerance []heat intolerance []polyuria []polydipsia []goiter Physical Exam Awake, alert, and oriented x3. LUNGS: Lungs clear to auscultation, Good diaphragmatic excursion CARDIAC: Normal S1 and S2; no rubs, murmurs, or gallops, Rhythm: regular rate and rhythm, Rate: normal 2-POINT DISCRIMINATION RIGHT (radial) RIGHT (ulnar) RIGHT overall LEFT (radial) LEFT (ulnar) LEFT overall thumb 6 ? 6 index ?6 ? 6 long ?6 ? 6 ring ?6 ? 6 small 6 6 TINEL'S (symptoms referred to) RIGHT (digit) LEFT (digit) 1 2 3 4 5 - 1 2 3 4 5 - Carpal Tunnel [] [] [] [] [] [] [] [] [] [] [] [] Guyon's Canal [] [] [] [] [] [] [] [] [] [] [] [] Pronator [] [] [] [] [] [] [] [] [] [] [] [] Cubital Tunnel [] [] [] [] [] [] [] [] [] [] [] [] Midarm medial [] [] [] [] [] [] [] [] [] [] [] [] Infraclavicular [] [] [] [] [] [] [] [] [] [] [] [] Supraclavicular [] [] [] [] [] [] [] [] [] [] [] [] COMPRESSION (symptoms referred to) RIGHT (digit) LEFT (digit) 1 2 3 4 5 - 1 2 3 4 5 - Phalens [] [] [] [] [] [] [] [] [] [] [] [] Pronator [] [] [] [] [] [] [] [] [] [] [] [] Forced flexion [] [] [] [] [] [] [] [] [] [] [] [] Elbow Hyperflexion [] [] [] [] [] [] [] [] [] [] [] [] Infraclavicular [] [] [] [] [] [] [] [] [] [] [] [] Supraclavicular [] [] [] [] [] [] [] [] [] [] [] [] Sandor [] [] [] [] [] [] [] [] [] [] [] [] LEGEND: TINEL'S and COMPRESSION tests are referred to symptoms localized to 1=thumb, 2=index, 3=middle, 4=ring, 5=small finger ? STRENGTH Strength in pounds RIGHT LEFT Governor Assembler (Alex) 35 25 Tyson pinch (thumb pad to lateral aspect of middle phalanx of index finger) 5 11 Tip pinch (thumb tip to index fingertip) 6 6 Palmar pinch (thumb pad to pads of index and middle fingers) 9 13 MRC Muscle Power Scale RIGHT LEFT 0 1 2 3 4 5 0 1 2 3 4 5 APB [] [] [] [] [] [] [] [] [] [] [] [] Intrinsics [] [] [] [] [] [] [] [] [] [] [] [] RIGHT LEFT positive negative positive negative APB atrophy [] [] [] [] Intrinsics atrophy [] [] [] [] Clawing [] [] [] [] RIGHT LEFT 0 1 2 3 4 5 6 7 8 9 10 0 1 2 3 4 5 6 7 8 9 10 Kapandji score (thumb) [] [] [] [] [] [] [] [] [] [] [] [] [] [] [] [] [] [] [] [] [] [] THUMB degenerative RIGHT LEFT 1st CMC tenderness +[] -[] +[] -[] 1st CMC grind +[] -[] +[] -[] 1st Extensor Compartment tenderness +[x] -[] +[] -[] Doe's positive +[x] -[] +[] -[] A1 Osmin Tenderness +[] -[] +[] -[] A1 Triggering +[] -[] +[] -[] Intersection tenderness +[] -[] +[] -[] STT tenderness +[] -[] +[] -[] The four stages of the Eaton-Littler classification Right [] Left [] Stage Description [] I Subtle carpometacarpal joint space widening [] II Slight carpometacarpal joint space narrowing, sclerosis, and cystic changes with osteophytes or loose bodies < 2 mm [] III Advanced carpometacarpal joint space narrowing, sclerosis, and cystic changes with osteophytes or loose bodies > 2 mm [] IV Arthritic changes in the carpometacarpal joint as in Stage III with scaphotrapezial arthritis FINGERS DEGENERATIVE [x]RIGHT []LEFT [x]Thumb []IF []MF []RF []SF DIPJ tenderness +[] -[] DIPJ deformity +[] -[] PIPJ tenderness +[] -[] PIPJ deformity +[] -[] MCPJ tenderness +[] -[] MCPJ deformity +[] -[] CMCJ tenderness +[] -[] CMCJ deformity +[] -[] A1 Osmin Tenderness +[x] -[] A1 Triggering +[] -[x] Trigger finger Green Classification [x]RIGHT []LEFT [x]Thumb []IF []MF []RF []SF [x]Grade I Palm pain and tenderness at A-1 osmin []Grade II Catching of digit []Grade III Locking of digit, passively correctable []Grade IV Fixed, locked digit WRIST RIGHT LEFT Distal Radius +[] -[] +[] -[] Distal Ulna +[] -[] +[] -[] Anatomical Snuff Box tenderness +[] -[] +[] -[] Scaphoid tubercle tenderness +[] -[] +[] -[] Scaphoid waist tenderness +[] -[] +[] -[] Scaphoid fossa tenderness +[] -[] +[] -[] Scapho-capitate joint tenderness +[] -[] +[] -[] S-L ligament tenderness +[] -[] +[] -[] Zapata's test +[] -[] +[] -[] S-L shear test Unst[] []Stable Unst[] []Stable Lunate tenderness +[] -[] +[] -[] Lunate fossa tenderness +[] -[] +[] -[] Luno-capitate tenderness +[] -[] +[] -[] L-T ligament tenderness +[] -[] +[] -[] L-T shear test Unst[] []Stable Unst[] []Stable Triquetrum tenderness +[] -[] +[] -[] Ulnar Fovea tenderness +[] -[] +[] -[] Ulnar Snuffbox tenderness +[] -[] +[] -[] ECU tenderness +[] -[] +[] -[] Pain with forced ulnar deviation +[] -[] +[] -[] DRUJ tenderness +[] -[] +[] -[] DRUJ Supination stability Unst[] []Stable Unst[] []Stable DRUJ Pronation stability Unst[] []Stable Unst[] []Stable Pisiform tenderness +[] -[] +[] -[] P-T grind test tenderness +[] -[] +[] -[] Hamate hook tenderness +[] -[] +[] -[] STT tenderness +[] -[] +[] -[] Capitate tenderness +[] -[] +[] -[] Hamate tenderness +[] -[] +[] -[] FCR tenderness +[] -[] +[] -[] FCU tenderness +[] -[] +[] -[] FDPs FDSs tenderness +[] -[] +[] -[] ECRL/ECRB tenderness +[] -[] +[] -[] EDCs tenderness +[] -[] +[] -[] Active Range of Motion table ([x] Ticked box means full active ROM) RIGHT [] LEFT [] Thumb Index Long Ring Small DIPJ [] [] [] [] [] PIPJ [] [] [] [] [] MCPJ [] [] [] [] [] CMCJ [] [] [] [] [] RIGHT [] LEFT [] Radial Ulnar Flexion Extension Wrist [] [] [] [] RIGHT [] LEFT [] Pronation Supination DRUJ [] [] Subcutaneous Mass location and characteristics: []Right []Left []Thumb []Index []Middle []Ring []Small [] P3 []DIPJ []P2 []PIPJ []P1 []MCPJ []Metacarpal []CMCJ []wrist []DRUJ []Forearm []Elbow []Arm []Shoulder []Infra/Supraclavicular []Volar []Dorsal []Radial []Ulnar []Medial []Lateral []Mobile Fixed to([]skin []tendon []sheath/capsule []joint []bone []nerve []vessel) []none []nail plate grooving []ulceration []skin discoloration/thinning []pulsation/thrill []positive Tinel's/compression test (to.................) Size...........mm Patient Entered Questionnaires PROMIS Score Percentiles PROMIS Global Health Scale 12/24/2015 Physical Health Percentile 7 Mental Health Percentile 1 Percentiles provide an indication of how the patient's score ranks in relation to the general population. Higher percentile rankings indicate better function/quality of life. 50th percentile is the average of the general population and indicates half of respondents had a worse score. > 31st percentile is within normal limits or better * < 31st percentile is at least SD worse than population, which may be clinically relevant < 16th percentile is at least 1 SD worse than population and warrants attention ................................ ....... Assessment:.....Right trigger thumb and right de quervains ...... Plan:....... []Pictures []Conservative []Medications [x]Steroid injection []Splint []Cast []OT []PT []CAST ROOM []EMG/ NCS []neuromuscular US []radiology []xrays []US []CT []MRI []Surgery []consult neurology []consult rheumatology []consult spine center []consult pain management []consult orthopedics Follow-up: [x]with DIRECTOR OF REHABILITATION AND WELLNESS [] with []after tests completed [x]PRN []1 week []2 weeks []3 weeks []4 weeks []6 weeks []2 months []3 months []6 months []9 months []1 year otherwise []weeks []months The patient was informed about possible options for treatment: Conservative vs. Operative, possible pros and cons with complications of both were discussed. The patient elects to have []conservative treatment []surgery All anesthestic options discussed with patient: wide awake local anesthesia, peripheral nerve block with possible sedation, peripheral nerve block with pain catheter and possible sedation, general anesthesia. Patient voiced understanding and has chosen []local []block ([]single shot []catheter) []WALANT []MAC []general anesthesia No guarantee that symptoms like pain, tingling and numbness will improve after surgery, the patient understands this. The risk, benefits and alternatives of injection and no injection therapy were discussed. The patient consented for an injection. The injection site was prepped with an alcohol swab. The INJECTION SITE RIGHT LEFT CARPAL TUNNEL [] [] CMCJ 1[] 2[] 3[] 4[] 5[] 1[] 2[] 3[] 4[] 5[] TRIGGER FINGER 1[x] 2[] 3[] 4[] 5[] 1[] 2[] 3[] 4[] 5[] EXTENSOR COMP 1[x] 2[] 3[] 4[] 5[] 6[] 1[] 2[] 3[] 4[] 5[] 6[] STT [] [] RADIOCARPAL [] [] MIDCARPAL [] [] DRUJ [] [] MCPJ 1[] 2[] 3[] 4[] 5[] 1[] 2[] 3[] 4[] 5[] PIPJ 1[] 2[] 3[] 4[] 5[] 1[] 2[] 3[] 4[] 5[] DIPJ 1[] 2[] 3[] 4[] 5[] 1[] 2[] 3[] 4[] 5[] was/were injected with a 27 gauge needle with a total of []10mg [x]20mg []30mg []40mg []50mg Kenalog and a total of []0.5 ml []1ml [x]1.5ml []2ml []5ml []10ml []15ml []20ml of 1% Lidocaine plain. The patient was assessed for application of a splint. The []right []left splint ([]finger []CT []thumb spica []cool comfort) was/were applied and the patient was informed how to use it. The patient was agreeable with the plan. Work restrictions: []none []one handed duty []no lifting, pulling, pushing, squeezing more than ..........pounds []until FU [] for ..........weeks The patient is seen and examined by Nilson Taylor PA-C and the following reflects his/her service. Scribed by Karla Ricketts RN I agree with the Chief Complaint, ROS, and Past Histories independently gathered by the clinical wind farm support specialist and the remaining scribed note accurately describes my personal service to the patient. 30 Minutes total visit spent face to face with patient. Greater than 50% of the time was spent for counseling and coordination of care, discussing treatment options and recommendations. Nilson Taylor PA-C June 22, 2023 5:43 PM This note was generated with voice recognition software and may contain errors, including spelling, grammar, syntax and misrecognition of what was dictated, that are not fully corrected. documented in this encounter [facility] 06-11-2023 History of Presen t illness Narrative Radiology Service Progress Note PATIENT NAME: Naobr Herrera DATE OF SERVICE: June 11, 2023 [...] PATIENT PRESENTS WITH AN IMPLANTABLE OR ATTACHED SENIOR PHYSICAL THERAPIST: No RADIOLOGY DEPARTMENT: CT; Exam(s) Completed: Chest PERIPHERAL IV DATA: Not applicable SIGNED BY: RT Paris(R) June 11, 2023 1:41 PM documented in this encounter [facility] 05-25-2023 History of Presen t illness Narrative Radiology Service Progress Note PATIENT NAME: Nabor Herrera DATE OF SERVICE: May 25, 2023 [...] RT Kam(R) May 25, 2023 5:47 PM documented in this encounter [facility] 04-26-2023 History of Presen t illness Narrative [...] MEDICAL HISTORY Diagnosis Date Bipolar 1 disorder ([facility]) [facility] DVT (deep venous thrombosis) ([facility]) 2006 Marijuana use Migraine with aura PE (pulmonary embolism) 2006 PTSD (post-traumatic stress disorder) [facility] Schizoaffective disorder ([facility]) [facility] psych [facility] Urinary tract infection, site not specified 2003 [...] of care. This note was generated using Hinge software. It may contain errors in wording, punctuation, or spelling. [place] [employer] APRN.TELEGRAPH MESSENGER documented in this encounter [facility] 04-19-2023 Miscellaneous Notes Pharmacy verified in [facility] in [place] Patient has been identified by name and [...] mg tablet Class: Normal Route: ORAL Order: [id number] Date of last office visit : 04/22/2022 Date of next office visit : Visit date not found Last 2 Encounter Wt Readings: Date: Wt: 01/06/2023 95.4 kg (210 lb 6.4 oz) 09/21/2022 93.4 kg (206 lb) Not applicable Please advise. Keyla Casey Pss documented in this encounter [facility] 04-19-2023 Miscellaneous Notes Pharmacy verified in [facility] Patient has been identified by name [...] Keyla Casey Pss documented in this encounter [facility] 02-12-2023 Miscellaneous Notes Patient last visit [...] patient. Debbie Melo documented in this encounter [facility] 02-01-2023 Miscellaneous Notes Patient calls to [...] O2 SATURATION MONITOR: No Protocols used: Breathing [id number] documented in this encounter [facility] 01-07-2023 Miscellaneous Notes Patient notified.Lizabeth Cervantes LPN ----- Message from Callie Ordonez APRN.TELEGRAPH MESSENGER sent at 01/07/2023 7:12 AM EDT ----- Please advise patient the COVID and flu test was negative. documented in this encounter [facility] 01-06-2023 History of Presen t illness Narrative [...] MEDICAL HISTORY Diagnosis Date Bipolar 1 disorder ([facility]) sees psych at [facility] DVT (deep venous thrombosis) ([facility]) 2006 Marijuana use Migraine with aura PE (pulmonary embolism) 2006 PTSD (post-traumatic stress disorder) sees psych at [facility] Schizoaffective disorder ([facility]) sees psych at [facility] Urinary tract infection, site not specified 2003 [...] to review antiviral treatment if positive. Cole Farzier MD documented in this encounter [facility] 12-07-2022 Miscellaneous Notes Last office visit: 04/22/22 F/u scheduled: none, no showed 10/29/22 Vania Mnedez Ma Patient has been identified by name [...] patient. Kelli Man documented in this encounter [facility] 12-07-2022 Miscellaneous Notes Last office visit: 04/22/22 F/u scheduled: none, no showed 10/29/22 Vania Mendez Ma Nabor Herrera is calling Dionicio Brower MD today requesting a refill on an medication. baclofen (LIORESAL) 10 mg tablet Please send to [facility] documented in this encounter [facility] 09-21-2022 Miscellaneous Notes Patient has been [...] patient. Diane Brown documented in this encounter [facility] 08-19-2022 Miscellaneous Notes No visit scheduled. CHINYERE [...] Pham Garcia [facility] documented in this encounter [facility] 07-07-2022 Miscellaneous Notes Addended by: DIONICIO BROWER on: 07/07/2022 04:17 PM Modules accepted: Orders [...] Núñez Pss ' documented in this encounter [facility] 05-21-2022 Miscellaneous Notes Patient has been [...] Nicolette Parks Pss documented in this encounter [facility] 04-22-2022 Instructions Bruna Parker APRN.TELEGRAPH MESSENGER - 04/22/2022 3:57 PM EST Wear the spica splint. Ice to the wrist. You can use the ibuprofen 800 mg every 6-8 hours. You can also use tylenol if needed. Schedule w/ ortho. documented in this encounter [facility] 04-22-2022 History of Presen t illness Narrative This is a 46 year old female who presents today with: Patient presents with: Hand Pain: R hand pain HISTORY OF PRESENT ILLNESS: Nabor Herrera is a 46 year old female. [...] MEDICAL HISTORY Diagnosis Date Bipolar 1 disorder ([facility]) [facility] DVT (deep venous thrombosis) ([facility]) 2006 Marijuana use Migraine with aura PE (pulmonary embolism) 2006 PTSD (post-traumatic stress disorder) [facility] Schizoaffective disorder ([facility]) [facility] Urinary tract [...] as needed for worsening/no improvement. Bruna Parker APRN.TELEGRAPH MESSENGER This note was partially generated using Hinge voice recognition system. Note was reviewed for accuracy. There may be minor misspellings or grammar miscues with Hinge voice recognition. documented in this encounter [facility] 04-08-2022 History of Presen t illness Narrative Subjective Ear Problem Associated symptoms include hearing loss. Pertinent negatives include no coughing, headaches or sore throat. Nabor Herrera is a 46 year old female who [facility] of right ear pain [...] MEDICAL HISTORY Diagnosis Date Bipolar 1 disorder ([facility]) sees psych at [facility] DVT (deep venous thrombosis) ([facility]) 2006 Marijuana use Migraine with aura PE (pulmonary embolism) 2006 PTSD (post-traumatic stress disorder) sees psych at [facility] Schizoaffective disorder ([facility]) sees psych at [facility] Urinary tract infection, site not specified 2003 [...] Discussed expected course of illness Callie Ordonez APRN.TELEGRAPH MESSENGER documented in this encounter [facility] 04-08-2022 Instructions Callie Ordonez APRN.CNP - [...] Discussed expected course of illness Callie Ordonez APRN.CNP OTITIS MEDIA GENERAL INFORMATION: Otitis media is [...] even if the symptoms go away. 2. Yltu-xjh-muueltt pain medication may be taken or other [...] him or her). documented in this encounter [facility] 04-08-2022 Miscellaneous Notes [facility] 03/12/22 NOV [...] Pricilla Aragon Pss documented in this encounter [facility] 03-21-2022 Miscellaneous Notes Patient has been [...] you. Helen Stanton documented in this encounter [facility] 03-16-2022 Instructions Nadege Hills APRN.CNP - 03/16/2022 2:54 PM EST OTITIS MEDIA [...] even if the symptoms go away. 2. Ukgr-qxa-nsqazmj pain medication may be taken or other [...] him or her). documented in this encounter [facility] 03-16-2022 History of Presen t illness Narrative This note was created using RIISnetriter. Subjective Nabor Herrera is a 46 year old female. 46 year old female with PMH migraine, DDD, bipolar, schizo, and PTSD presents with complaints of ear pain. Acute onset 5 days ago +right ear Popping and clicking Denies drainage. Denies accompanying URI sx. Denies cough. Denies SOB or dyspnea. Denies skin rash or lesions. Endorses that she was approximately one week ago She works at [employer] Utilized Tylenol with mild relief. The history is provided by the patient. No director of creative services was used. Ear Pain This is a [...] MEDICAL HISTORY Diagnosis Date Bipolar 1 disorder ([facility]) sees psych at [facility] DVT (deep venous thrombosis) ([facility]) 2006 Marijuana use Migraine with aura PE (pulmonary embolism) 2006 PTSD (post-traumatic stress disorder) sees psych at [facility] Schizoaffective disorder ([facility]) sees psych at [facility] Urinary tract infection, site not specified 2003 [...] right Given context and findings of AOM Nadege Hills APRN.TELEGRAPH MESSENGER documented in this encounter [facility] 03-12-2022 Instructions Rudy Lugo PA-C - 03/12/2022 5:20 PM EDT Ice/ moist heat, lineaments, OTC analgesics as needed. Stretching and posture reviewed. documented in this encounter [facility] 03-12-2022 History of Presen t illness Narrative 46 year old female with c/o here for follow up Migraine with aura, not intractable, without status migrainosus (primary encounter diagnosis) Migraine without aura and with status migrainosus, not intractable Chronic tension-type headache, intractable Current medications: Sumatriptan 100 mg stat severe headache, repeat in 2 hours once prn [id number] mg-caff 40mg-butal 50mg q4h prn BORDEN sparingly [...] MEDICAL HISTORY Diagnosis Date Bipolar 1 disorder ([facility]) [facility] DVT (deep venous thrombosis) ([facility]) 2007 Marijuana use Migraine with aura PE (pulmonary embolism) 2006 PTSD (post-traumatic stress disorder) [facility] Schizoaffective disorder ([facility]) sees psych at [facility] Urinary tract infection, site not specified [...] LIST Migraine Without Aura Bipolar 1 disorder ([facility]) Ptsd (Post-Traumatic Stress Disorder) Schizoaffective Disorder ([facility]) Lumbago Chronic Back Pain Lumbar Spondylosis Lumbar [...] prn OMT Push fluids Relaxation techniques, mindfulness. [id number] E 50 MG-325 MG-40 MG TABLET 2. [...] 295.70, ICD10: F25.0 As above. Following with [facility] 9. Smoker - ICD9: 305.1, ICD10: [...] Rudy Lugo PA-C documented in this encounter [facility] 03-09-2022 Miscellaneous Notes Please assist: Dr. [...] again? Thank you. documented in this encounter [facility] 02-25-2022 Miscellaneous Notes Patient returned call [...] Justin Lugo PA-C documented in this encounter [facility] 02-19-2022 History of Presen t illness [...] MEDICAL HISTORY Diagnosis Date Bipolar 1 disorder ([facility]) [facility] DVT (deep venous thrombosis) ([facility]) 2006 Marijuana use Migraine with aura PE (pulmonary embolism) 2006 PTSD (post-traumatic stress disorder) [facility] Schizoaffective disorder ([facility]) [facility] Urinary tract [...] LIST Migraine Without Aura Bipolar 1 disorder ([facility]) Ptsd (Post-Traumatic Stress Disorder) Schizoaffective Disorder ([facility]) Lumbago Chronic Back Pain Lumbar Spondylosis Lumbar [...] sx - SUMATRIPTAN 100 MG TABLET - [id number] E 50 MG-325 MG-40 MG TABLET 3. [...] Rudy Lugo PA-C documented in this encounter [facility] 02-09-2022 Miscellaneous Notes Pt notified and voiced understanding. Vania Mendez Ma' I think it is due to the amount we are using. It is prn. Should not be using every day, three times a day routine. Work on spreading out the usage. Rx sent. Nabor is calling about her Baclofen. She received a script for 30 pills with instructions to take 3 daily for back spasms. She is out and cannot get a refill do to the wording on the script. She would like the doctor to review and allow her to get a refill. Nabor [phone] documented in this encounter [facility] 01-15-2022 Miscellaneous Notes Patient phones requesting [...] patient. Diane Brown documented in this encounter [facility] 01-01-2022 Miscellaneous Notes Patient last visit [...] Keyla Casey Pss documented in this encounter [facility] 12-04-2021 Miscellaneous Notes Patient has been [...] to pharmacy. No need to notify patient. Sa[facility]n [facility] documented in this encounter [facility] 11-23-2021 Miscellaneous Notes Patient given results and verbalized understanding of instructions given. Nicolette Graff ----- Message from Callie Ordonez APRN.TELEGRAPH MESSENGER sent at 11/23/2021 8:15 AM EDT ----- Please advise patient of negative COVID and influenza test. documented in this encounter [facility] 11-22-2021 History of Presen t illness Narrative CC: Patient presents with: Head Congestion: cough, vomiting and bodyaches, right ear pain x 3 days Had positive covid test at home. HPI: Nabor Herrera is a 46 year old female [...] MEDICAL HISTORY Diagnosis Date Bipolar 1 disorder ([facility]) sees psych at [facility] DVT (deep venous thrombosis) ([facility]) 2006 Marijuana use Migraine with aura PE (pulmonary embolism) 2006 PTSD (post-traumatic stress disorder) sees psych at [facility] Schizoaffective disorder ([facility]) sees psych at [facility] Urinary tract infection, site not specified 2003 [...] symptoms occur. Patient agreeable to treatment plan. Choi Vale APRN.TELEGRAPH MESSENGER documented in this encounter [facility] 11-05-2021 Miscellaneous Notes oarrs done. CHINYERE: [...] Maeve Núñez Pss documented in this encounter [facility] 10-31-2021 Miscellaneous Notes Patient phones requesting [...] Patient would like [email or web address] Patient has not had the medication in 1 week. documented in this encounter [facility] 10-27-2021 Miscellaneous Notes Pt notified and voiced understanding. Vania Mendez Ma Let her know I wrote two lamictals. Start second after she has finished the script for three 25 mg pills a day [facility] 09/19/2021 Appointment scheduled for 11/21/2021 Please advise. Thank you. DEEP [facility] verified in [facility] Patient has been identified by name [...] Keyla Casey Pss documented in this encounter [facility] 10-23-2021 Miscellaneous Notes Patient scheduled with Justin Lugo 11/21/21 telephone call visit. Dashawn Madden MA Left a message for pt to call the office and ask to speak to a nurse. Yaa Brooks LPN Justin Lugo would like to see patient back in 4 weeks. Attempted to contact patient to schedule. Unable to reach, left message to call office. Please assist patient with scheduling with [facility] for 4 weeks F/U. Dashawn Madden MA documented in this encounter [facility] 10-17-2021 History of Presen t illness Narrative Audio only was used for evaluation of this patient. Location of patient: [place] Patient was offered a virtual/telemedicine appointment in [...] (post-traumatic stress disorder) Schizoaffective disorder, [facility] Current medications: Lamictal up to [...] [facility] ([facility]) 2006 Marijuana use Migraine with aura PE [...] Lugo PA-C . documented in this encounter [facility] 09-22-2021 Miscellaneous Notes [facility] 09/19/21 NOV [...] Opal Gifford Pss documented in this encounter [facility] 09-19-2021 History of Presen t illness Narrative Virtualist Progress Note Triage Call Triage source: Nurse Audit Director Mode of contact (phone call, VoipSwitch, [employer], Express [employer] Online, Skype, other): tele History/Physical [...] Care, the disposition is Go to ED Now): See provider within 4 hours , mid Ezequiel afernoon Downgrade: Yes Virtualist Recommended Disposition: See Provider within 24 hours, discussed symptoms of concussion and if they worsen before her appt she is to go to the ER Remove COVID19 association SIGNATURE: Nicolle Vyas DO PATIENT NAME: Nabor Herrera DATE: September 19, 2021 documented in this encounter [facility] 09-19-2021 Miscellaneous Notes Reason For Call: [...] last menstrual period? Denies Protocols used: HEAD [id number] documented in this encounter [facility] 09-08-2021 Instructions M Jordy Lugo PA-C [...] Starter Kit-Blue; Subvenite Starter Kit-Green; Subvenite Starter Kit-Hooker Brand Names: [place]APO-LamoTRIgine; Auro-LamoTRIgine; LaMICtal; LamoTRIgine-100; LamoTRIgine-150; [...] Reviewed Date 2019-03-08 documented in this encounter [facility] 09-08-2021 History of Presen t illness [...] Patient expresses her confidence in both Dr. Brower and myself at safe people who have [...] [facility] ([facility]) 2007 Marijuana use Migraine with aura PE (pulmonary embolism) 2007 PTSD (post-traumatic stress disorder) [facility] psych [facility] Schizoaffective disorder ([facility]) [facility] Urinary tract [...] MG TABLET Case was reviewed with Dr. Brower. Rudy Lugo PA-C documented in this encounter [facility] 09-01-2021 Miscellaneous Notes [facility] 07/24/21 NOV No upcoming appt Patient has been identified by name and date of : Yes Pending Prescriptions Disp Refills SUMATRIPTAN 100 MG TABLET 9 tablet 2 Sig: Take 1 tablet by mouth as needed. BRIAN: No RX INSTRUCTIONS: Patient aware RX will be sent to pharmacy. No need to notify patient. Diane Brown documented in this encounter [facility] 08-20-2021 Miscellaneous Notes Already called in. documented in this encounter [facility] 08-08-2021 Miscellaneous Notes Patient notified and verbalized understanding Dashawn Wolff Cma Ct shows two very tiny nodules. Probably ok but recommend repeat ct in in one year. documented in this encounter [facility] 08-07-2021 Miscellaneous Notes August 07, 2021 PID: [id number] Nabor Herrera [address] [place] [address] Dear Ms. Herrera, We are pleased to [...] report will be kept on file at [facility] as part of your permanent medical record and are available for your continuing care. Thank you for allowing us to help in meeting your health care needs. Sincerely, Dr. Jimenez Interpreting Radiologist [facility] (Normal over 40) documented in this encounter [facility] 08-07-2021 History of Presen t illness Narrative Radiology Service Progress Note PATIENT NAME: Nabor Herrera DATE OF SERVICE: August 07, 2021 [...] IV DATA: Not applicable SIGNED BY: Brandee Dubono Kirill August 07, 2021 8:59 AM documented in this encounter [facility] 08-07-2021 History of Presen t illness Narrative Radiology Service Progress Note PATIENT NAME: Nabor Herrera DATE OF SERVICE: August 07, 2021 [...] 2021 11:12 AM documented in this encounter [facility] 07-24-2021 History of Presen t illness Narrative Radiology Service Progress Note PATIENT NAME: Nabor Herrera DATE OF SERVICE: July 24, 2021 TIME: 9:38 AM PATIENT IDENTITY VERIFICATION COMPLETED USING TWO [...] Yes RADIOLOGY DEPARTMENT: General X-ray: Exam(s) Completed: Spine X-Ray(s): Cervical AP / LAT / OBL PERIPHERAL IV DATA: Not applicable SIGNED BY: RT Kam(R) July 24, 2021 9:38 AM documented in this encounter [facility] 12-01-2013 History of Past i llness Narrative Problem Noted Date Resolved Date Knee pain 12/01/2013 09/22/2018 Other nonspecific abnormal finding 11/16/2006 11/16/2006 documented as of this encounter (statuses as of 08/08/2021) [facility] History of Past illness Narrative* Problem Noted Date Resolved Date Knee pain 12/01/2013 09/22/2018 Other nonspecific abnormal finding 11/16/2006 11/16/2006 documented as of this encounter (statuses as of 08/08/2021) [facility] History of Past illness Narrative* Problem Noted Date Resolved Date Knee pain 12/01/2013 09/22/2018 Other nonspecific abnormal finding 11/16/2006 11/16/2006 documented as of this encounter (statuses as of 08/08/2021) [facility] History of Past illness Narrative* Problem Noted Date Resolved Date Knee pain 12/01/2013 09/22/2018 Other nonspecific abnormal finding 11/16/2006 11/16/2006 documented as of this encounter (statuses as of 08/09/2021) [facility] of Past illness Narrative* Problem Noted Date Resolved Date Knee pain 12/01/2013 09/22/2018 Other nonspecific abnormal finding 11/16/2006 11/16/2006 documented as of this encounter (statuses as of 08/20/2021) [facility] History of Past illness Narrative* Problem Noted Date Resolved Date Knee pain 12/01/2013 09/22/2018 Other nonspecific abnormal finding 11/16/2006 11/16/2006 documented as of this encounter (statuses as of 09/01/2021) [facility] of Past illness Narrative* Problem Noted Date Resolved Date Knee pain 12/01/2013 09/22/2018 Other nonspecific abnormal finding 11/16/2006 11/16/2006 documented as of this encounter (statuses as of 09/08/2021) [facility] History of Past illness Narrative* Problem Noted Date Resolved Date Knee pain 12/01/2013 09/22/2018 Other nonspecific abnormal finding 11/16/2006 11/16/2006 documented as of this encounter (statuses as of 09/19/2021) [facility] History of Past illness Narrative* Problem Noted Date Resolved Date Knee pain 12/01/2013 09/22/2018 Other nonspecific abnormal finding 11/16/2006 11/16/2006 documented as of this encounter (statuses as of 09/19/2021) [facility] History of Past illness Narrative* Problem Noted Date Resolved Date Knee pain 12/01/2013 09/22/2018 Other nonspecific abnormal finding 11/16/2006 11/16/2006 documented as of this encounter (statuses as of 09/22/2021) [address]25-2014 History of Past illness Narrative* Problem Noted Date Resolved Date Knee pain 12/01/2013 09/22/2018 Other nonspecific abnormal finding 11/16/2006 11/16/2006 documented as of this encounter (statuses as of 10/18/2021) [facility] History of Past illness Narrative* Problem Noted Date Resolved Date Knee pain 12/01/2013 09/22/2018 Other nonspecific abnormal finding 11/16/2006 11/16/2006 documented as of this encounter (statuses as of 10/23/2021) [facility] of Past illness Narrative* Problem Noted Date Resolved Date Knee pain 12/01/2013 09/22/2018 Other nonspecific abnormal finding 11/16/2006 11/16/2006 documented as of this encounter (statuses as of 10/27/2021) [facility] of Past illness Narrative* Problem Noted Date Resolved Date Knee pain 12/01/2013 09/22/2018 Other nonspecific abnormal finding 11/16/2006 11/16/2006 documented as of this encounter (statuses as of 10/31/2021) [facility] History of Past illness Narrative* Problem Noted Date Resolved Date Knee pain 12/01/2013 09/22/2018 Other nonspecific abnormal finding 11/16/2006 11/16/2006 documented as of this encounter (statuses as of 11/06/2021) [facility] History of Past illness Narrative* Problem Noted Date Resolved Date Knee pain 12/01/2013 09/22/2018 Other nonspecific abnormal finding 11/16/2006 11/16/2006 documented as of this encounter (statuses as of 11/22/2021) [facility] History of Past illness Narrative* Problem Noted Date Resolved Date Knee pain 12/01/2013 09/22/2018 Other nonspecific abnormal finding 11/16/2006 11/16/2006 documented as of this encounter (statuses as of 11/23/2021) [facility] History of Past illness Narrative* Problem Noted Date Resolved Date Knee pain 12/01/2013 09/22/2018 Other nonspecific abnormal finding 11/16/2006 11/16/2006 documented as of this encounter (statuses as of 12/04/2021) [facility] History of Past illness Narrative* Problem Noted Date Resolved Date Knee pain 12/01/2013 09/22/2018 Other nonspecific abnormal finding 11/16/2006 11/16/2006 documented as of this encounter (statuses as of 01/02/2022) [facility] History of Past illness Narrative* Problem Noted Date Resolved Date Knee pain 12/01/2013 09/22/2018 Other nonspecific abnormal finding 11/16/2006 11/16/2006 documented as of this encounter (statuses as of 01/15/2022) [facility] History of Past illness Narrative* Problem Noted Date Resolved Date Knee pain 12/01/2013 09/22/2018 Other nonspecific abnormal finding 11/16/2006 11/16/2006 documented as of this encounter (statuses as of 02/09/2022) [facility] History of Past illness Narrative* Problem Noted Date Resolved Date Knee pain 12/01/2013 09/22/2018 Other nonspecific abnormal finding 11/16/2006 11/16/2006 documented as of this encounter (statuses as of 02/20/2022) [facility] History of Past illness Narrative* Problem Noted Date Resolved Date Knee pain 12/01/2013 09/22/2018 Other nonspecific abnormal finding 11/16/2006 11/16/2006 documented as of this encounter (statuses as of 02/25/2022) [facility] History of Past illness Narrative* Problem Noted Date Resolved Date Knee pain 12/01/2013 09/22/2018 Other nonspecific abnormal finding 11/16/2006 11/16/2006 documented as of this encounter (statuses as of 03/13/2022) [facility] History of Past illness Narrative* Problem Noted Date Resolved Date Knee pain 12/01/2013 09/22/2018 Other nonspecific abnormal finding 11/16/2006 11/16/2006 documented as of this encounter (statuses as of 03/16/2022) [facility] History of Past illness Narrative* Problem Noted Date Resolved Date Knee pain 12/01/2013 09/22/2018 Other nonspecific abnormal finding 11/16/2006 11/16/2006 documented as of this encounter (statuses as of 03/23/2022) [facility] History of Past illness Narrative* Problem Noted Date Resolved Date Knee pain 12/01/2013 09/22/2018 Other nonspecific abnormal finding 11/16/2006 11/16/2006 documented as of this encounter (statuses as of 04/08/2022) [facility] History of Past illness Narrative* Problem Noted Date Resolved Date Knee pain 12/01/2013 09/22/2018 Other nonspecific abnormal finding 11/16/2006 11/16/2006 documented as of this encounter (statuses as of 04/22/2022) [facility] History of Past illness Narrative* Problem Noted Date Resolved Date Knee pain 12/01/2013 09/22/2018 Other nonspecific abnormal finding 11/16/2006 11/16/2006 documented as of this encounter (statuses as of 04/22/2022) [facility] History of Past illness Narrative* Problem Noted Date Resolved Date Knee pain 12/01/2013 09/22/2018 Other nonspecific abnormal finding 11/16/2006 11/16/2006 documented as of this encounter (statuses as of 05/21/2022) [facility] History of Past illness Narrative* Problem Noted Date Resolved Date Knee pain 12/01/2013 09/22/2018 Other nonspecific abnormal finding 11/16/2006 11/16/2006 documented as of this encounter (statuses as of 07/08/2022) [facility] Past illness Narrative* Problem Noted Date Resolved Date Knee pain 12/01/2013 09/22/2018 Other nonspecific abnormal finding 11/16/2006 11/16/2006 documented as of this encounter (statuses as of 08/20/2022) [facility] History of Past illness Narrative* Problem Noted Date Resolved Date Knee pain 12/01/2013 09/22/2018 Other nonspecific abnormal finding 11/16/2006 11/16/2006 documented as of this encounter (statuses as of 09/14/2022) [facility] History of Past illness Narrative* Problem Noted Date Resolved Date Knee pain 12/01/2013 09/22/2018 Other nonspecific abnormal finding 11/16/2006 11/16/2006 documented as of this encounter (statuses as of 09/22/2022) [facility] History of Past illness Narrative* Problem Noted Date Diagnosed Date Resolved Date Knee pain 12/01/2013 09/22/2018 Other nonspecific abnormal finding 11/16/2006 11/16/2006 documented as of this encounter (statuses as of 12/07/2022) [facility] Past illness Narrative* Problem Noted Date Diagnosed Date Resolved Date Knee pain 12/01/2013 09/22/2018 Other nonspecific abnormal finding 11/16/2006 11/16/2006 documented as of this encounter (statuses as of 12/08/2022) [facility] History of Past illness Narrative* Problem Noted Date Diagnosed Date Resolved Date Knee pain 12/01/2013 09/22/2018 Other nonspecific abnormal finding 11/16/2006 11/16/2006 documented as of this encounter (statuses as of 01/07/2023) [facility] Past illness Narrative* Problem Noted Date Diagnosed Date Resolved Date Knee pain 12/01/2013 09/22/2018 Other nonspecific abnormal finding 11/16/2006 11/16/2006 documented as of this encounter (statuses as of 01/07/2023) [facility] History of Past illness Narrative* Problem Noted Date Diagnosed Date Resolved Date Knee pain 12/01/2013 09/22/2018 Other nonspecific abnormal finding 11/16/2006 11/16/2006 documented as of this encounter (statuses as of 02/01/2023) [facility] History of Past illness Narrative* Problem Noted Date Diagnosed Date Resolved Date Knee pain 12/01/2013 09/22/2018 Other nonspecific abnormal finding 11/16/2006 11/16/2006 documented as of this encounter (statuses as of 02/13/2023) [facility] Past illness Narrative* Problem Noted Date Diagnosed Date Resolved Date Knee pain 12/01/2013 09/22/2018 Other nonspecific abnormal finding 11/16/2006 11/16/2006 documented as of this encounter (statuses as of 04/20/2023) [facility] of Past illness Narrative* Problem Noted Date Diagnosed Date Resolved Date Knee pain 12/01/2013 09/22/2018 Other nonspecific abnormal finding 11/16/2006 11/16/2006 documented as of this encounter (statuses as of 04/21/2023) [address]25-2014 History of Past illness Narrative* Problem Noted Date Diagnosed Date Resolved Date Knee pain 12/01/2013 09/22/2018 Other nonspecific abnormal finding 11/16/2006 11/16/2006 documented as of this encounter (statuses as of 04/27/2023) [place] [id number] History of Past illness Narrative* Problem Noted Date Diagnosed Date Resolved Date Knee pain 12/01/2013 09/22/2018 Other nonspecific abnormal finding 11/16/2006 11/16/2006 documented as of this encounter (statuses as of 06/12/2023) [place] [id number] History of Past illness Narrative* Problem Noted Date Diagnosed Date Resolved Date Knee pain 12/01/2013 09/22/2018 Other nonspecific abnormal finding 11/16/2006 11/16/2006 documented as of this encounter (statuses as of 06/22/2023) [place] [id number] History of Past illness Narrative* Problem Noted Date Diagnosed Date Resolved Date Knee pain 12/01/2013 09/22/2018 Other nonspecific abnormal finding 11/16/2006 11/16/2006 documented as of this encounter (statuses as of 07/07/2023) [place] [id number] History of Past illness Narrative* Problem Noted Date Diagnosed Date Resolved Date Knee pain 12/01/2013 09/22/2018 Other nonspecific abnormal finding 11/16/2006 11/16/2006 documented as of this encounter (statuses as of 08/12/2023) [facility] History of Past illness Narrative* Problem Noted Date Diagnosed Date Resolved Date Knee pain 12/01/2013 09/22/2018 Other nonspecific abnormal finding 11/16/2006 11/16/2006 documented as of this encounter (statuses as of 08/12/2023) [place] [id number] History of Past illness Narrative* Problem Noted Date Diagnosed Date Resolved Date Knee pain 12/01/2013 09/22/2018 Other nonspecific abnormal finding 11/16/2006 11/16/2006 documented as of this encounter (statuses as of 08/13/2023) [facility] Past illness Narrative* Problem Noted Date Diagnosed Date Resolved Date Knee pain 12/01/2013 09/22/2018 Other nonspecific abnormal finding 11/16/2006 11/16/2006 documented as of this encounter (statuses as of 08/16/2023) [facility] note* Diagnosis Lung nodules Other nonspecific abnormal finding of lung field [facility] Diagnosis Lung nodules Other nonspecific abnormal finding of lung field [facility] this [facility] Diagnosis Migraine with aura, not intractable, without status migrainosus documented [facility] this [facility] Diagnosis Migraine with aura, not intractable, without status migrainosus [facility] this [facility] Diagnosis Migraine with aura, not intractable, without status migrainosus- Primary Bipolar 1 disorder (HCC) Bipolar I disorder, most recent episode (or current) unspecified PTSD (post-traumatic stress disorder) Posttraumatic stress disorder Schizoaffective disorder, bipolar type (HCC) Schizoaffective disorder, unspecified condition [facility] this [facility]* Diagnosis Closed head injury without loss [...] of lung field [facility] this [facility]* Diagnosis Migraine with aura, not intractable, without status migrainosus Bipolar 1 disorder (HCC) Bipolar I disorder, most recent episode (or current) unspecified PTSD (post-traumatic stress disorder) Posttraumatic stress disorder Schizoaffective disorder, bipolar type (HCC) Schizoaffective disorder, unspecified condition documented in this encounter [facility] note* Diagnosis PTSD (post-traumatic stress disorder) Posttraumatic stress disorder Bipolar 1 disorder (HCC) Bipolar I disorder, most recent episode (or current) unspecified Schizoaffective disorder, bipolar type (HCC) Schizoaffective disorder, unspecified condition documented in this encounter [facility] note* Diagnosis Suspected COVID-19 virus infection- Primary documented in this encounter [facility] note* Diagnosis Migraine with aura, not intractable, without status migrainosus [facility] this [facility]* Diagnosis Bipolar 1 disorder (HCC) Bipolar I disorder, most recent episode (or current) unspecified PTSD (post-traumatic stress disorder) Posttraumatic stress disorder Schizoaffective disorder, bipolar type (HCC) Schizoaffective disorder, unspecified condition [facility] Migraine with aura, not intractable, without status migrainosus [facility] Bipolar 1 disorder (HCC)- Primary Bipolar I disorder, most recent episode (or current) unspecified Migraine with aura, not intractable, without status migrainosus DDD (degenerative disc disease), cervical Degeneration of cervical intervertebral disc Lumbar spondylosis Lumbosacral spondylosis without myelopathy Schizoaffective disorder, bipolar type (HCC) Schizoaffective disorder, unspecified condition Elevated glucose Other abnormal glucose [facility] Diagnosis Migraine with aura, not intractable, [...] not elsewhere classified [facility] Acute otitis media, right- Primary Unspecified otitis media Otalgia, right ear [facility] Diagnosis Migraine with aura, not intractable, without status migrainosus [facility] Diagnosis Other acute nonsuppurative otitis media of right ear, recurrence not specified- Primary [facility] Diagnosis De Quervain's syndrome (tenosynovitis)- Primary [...] type- Primary [facility] Diagnosis Lung nodules Other nonspecific abnormal finding of lung field [facility] noteNo assessment information availableWHighland [facility] Work Phone: Evaluation note* Diagnosis De Quervain's tenosynovitis, right- Primary Radial styloid tenosynovitis Right wrist pain Pain in joint, forearm Trigger thumb of right hand Trigger finger (acquired) [facility] Migraine with aura, not intractable, without status migrainosus [facility]* Diagnosis URI, acute- Primary Acute upper respiratory infections of unspecified site Leg cramps Cramp of limb Acute otitis media, right Unspecified otitis media Bronchitis Bronchitis, not specified as acute or chronic [facility]* Diagnosis Hypokalemia- Primary Hypopotassemia [facility]* Diagnosis Encounter for screening mammogram for breast cancer [facility]* Diagnosis Migraine with aura, not intractable, without status migrainosus [facility]* Diagnosis Grief reaction- Primary Adjustment disorder with depressed mood Primary insomnia Persistent disorder of initiating or maintaining sleep Bipolar 1 disorder (HCC) Bipolar I disorder, most recent episode (or current) unspecified PTSD (post-traumatic stress disorder) Posttraumatic stress disorder Schizoaffective disorder, bipolar type (HCC) Schizoaffective disorder, unspecified condition [facility]* Diagnosis Grief reaction- Primary Adjustment disorder with depressed mood Gastroesophageal reflux disease without esophagitis Esophageal reflux [facility]* Diagnosis URI, acute Acute upper respiratory infections of unspecified site Bronchitis Bronchitis, not specified as acute or chronic [facility]* Diagnosis Right wrist pain Pain in joint, forearm [facility]* Diagnosis Acute otitis media, right- Primary Unspecified otitis media [facility]* Diagnosis Foot pain, right Pain in limb Foot injury, right, initial encounter [facility]* Diagnosis DDD (degenerative disc disease), cervical Degeneration of cervical intervertebral disc [facility]* Diagnosis Migraine with aura, not intractable, without status migrainosus [facility]* Diagnosis Migraine without aura and with status migrainosus, not intractable- Primary Migraine without aura, without mention of intractable migraine with status migrainosus Encounter for immunization Need for other specified prophylactic vaccination against single bacterial disease Chronic neck pain Cervicalgia Lung nodules Other nonspecific abnormal finding of lung field Schizoaffective disorder, bipolar type (HCC) Schizoaffective disorder, unspecified condition Bipolar 1 disorder (HCC) Bipolar I disorder, most recent episode (or current) unspecified Screening for depression Screening for colon cancer Special screening for malignant neoplasms, colon Migraine with aura, not intractable, without status migrainosus [facility]* Diagnosis Bronchitis- Primary Bronchitis, not specified as acute or chronic Wheezing [facility]* Diagnosis Wheezing [facility]* Diagnosis Bronchitis- Primary Bronchitis, not specified as acute or chronic Cough, unspecified type [facility]* Diagnosis Migraine without aura and with status migrainosus, not intractable Migraine without aura, without mention of intractable migraine with status migrainosus Migraine with aura, not intractable, without status migrainosus [facility]* Diagnosis Anxiety- Primary Anxiety state, unspecified Migraine without aura and with status migrainosus, not intractable Migraine without aura, without mention of intractable migraine with status migrainosus [facility]* Diagnosis Positive colorectal cancer screening using Cologuard test- Primary [facility]* Diagnosis Gastroesophageal reflux disease, unspecified whether esophagitis present- Primary Positive colorectal cancer screening using Cologuard test [facility]* Diagnosis Migraine without aura and with status migrainosus, not intractable- Primary Migraine without aura, without mention of intractable migraine with status migrainosus Bipolar 1 disorder (HCC) Bipolar I disorder, most recent episode (or current) unspecified Schizoaffective disorder, bipolar type (HCC) Schizoaffective disorder, unspecified condition Migraine with aura, not intractable, without status migrainosus [facility] Diagnosis Encounter for screening mammogram for breast cancer [facility]* Diagnosis Migraine without aura and with status migrainosus, not intractable- Primary Migraine without aura, without mention of intractable migraine with status migrainosus ANNALISA (obstructive sleep apnea) Obstructive sleep apnea (adult) (pediatric) [facility] Migraine without aura and with status migrainosus, not intractable Migraine without aura, without mention of intractable migraine with status migrainosus Migraine with aura, not intractable, without status migrainosus [facility] Diagnosis Migraine without aura and with status migrainosus, not intractable Migraine without aura, without mention of intractable migraine with status migrainosus Migraine with aura, not intractable, without status migrainosus [facility] Diagnosis Migraine without aura and with status migrainosus, not intractable- Primary Migraine without aura, without mention of intractable migraine with status migrainosus Migraine with aura, not intractable, without status migrainosus [facility] Additional Instructions Take medications as directed. Beware of drowsiness and dizziness with Flomax and narcotic pain medication. Return with fever, increased pain, inability to take her medications, new or worsening symptoms.[facility] Work Phone: Reason for referral (narrative)* Diagnostic Procedure Only (Routine) - Pending Review Specialty Diagnoses / Procedures Referred By Claire t Referred To Contact BR IMAGING Diagnoses Encounter for screening mammogram for breast cancer Procedures DELLA SCREENING SCREENING MAMMOGRAPHY BI 2-VIEW BREAST INC CAD Dionicio Brower MD [address] [place] [address] Br Imaging [address] [place] [address] Referral ID Status Reason Start Date Expiration Date Visits Requested Visits Authorized [id number] Pending Review Auto-Generat ed Referral 09/09/2022 10/09/2023 1 1 [facility] for referral (narrative)* Diagnostic Procedure Only (Routine) - Pending Review Specialty Diagnoses / Procedures Referred By Claire t Referred To Contact XR IMAGING Diagnoses Right wrist pain Procedures XR WRIST GENERAL 3V PA/LAT/OBL LEFT RADEX WRIST COMPLETE MINIMUM 3 VIEWS Gianluca Vines MD [address] [place] [address] Xr Imaging [facility]95 Referral ID Status Reason Start Date Expiration Date Visits Requested Visits Authorized [id number] Pending Review Auto-Generat ed Referral 06/22/2023 07/21/2024 1 1 * Diagnostic Procedure Only (Routine) - Pending Review Specialty Diagnoses / Procedures Referred By Claire t Referred To Contact XR IMAGING Diagnoses Right wrist pain Procedures XR HAND GENERAL 3V PA/LAT/OBL LEFT RADEX HAND MINIMUM 3 VIEWS Gianluca Vines MD [address] [place] [address] [place] [address] Referral ID Status Reason Start Date Expiration Date Visits Requested Visits Authorized [id number] Pending Review Auto-Generat ed Referral 06/22/2023 07/21/2024 1 1 [facility] for referral (narrative)* Diagnostic Procedure Only (Routine) - Pending Review Specialty Diagnoses / Procedures Referred By Claire t Referred To Contact BR IMAGING Diagnoses Encounter for screening mammogram for breast cancer Procedures DELLA SCREENING SCREENING MAMMOGRAPHY BI 2-VIEW BREAST INC CAD Dionicio Brower MD [address] [place] [address] Br Imaging [address] [place] [address] Referral ID Status Reason Start Date Expiration Date Visits Requested Visits Authorized [id number] Pending Review Auto-Generat ed Referral 08/11/2023 09/09/2024 1 1 [facility] for referral (narrative)* Diagnostic Procedure Only (Routine) - Closed Specialty Diagnoses / Procedures Referred By Claire t Referred To Contact XR IMAGING Diagnoses Right wrist pain Procedures XR WRIST GENERAL 3V PA/LAT/OBL RIGHT RADEX WRIST COMPLETE MINIMUM 3 VIEWS Dionicio Brower MD [address] [place] [address] [place] [address] Referral ID Status Reason Start Date Expiration Date V isits Requested Visits Authorized [id number] Closed Auto-Generate d Referral 05/25/2023 06/23/2024 1 1 [facility] for referral (narrative)* Diagnostic Procedure Only (Urgent) - Closed Specialty Diagnoses / Procedures Referred By Claire t Referred To Contact XR IMAGING Diagnoses Foot pain, right Foot injury, right, initial encounter Procedures XR FOOT GENERAL 3V AP/LAT/OBL RIGHT RADEX FOOT COMPLETE MINIMUM 3 VIEWS Nadege Hills, ILIR.TELEGRAPH MESSENGER [address] [place] [address] [place] [address] Referral ID Status Reason Start Date Expiration Date V isits Requested Visits Authorized [id number] Closed Auto-Generate d Referral 09/21/2022 10/21/2023 1 1 [facility] for referral (narrative)* Diagnostic Procedure Only (Routine) - Closed Specialty Diagnoses / Procedures Referred By Juliac t Referred To Contact XR IMAGING Diagnoses DDD (degenerative disc disease), cervical Procedures XR CERV OTHER 4V AP/LAT/OBL RADEX SPINE CERVICAL 4 OR 5 VIEWS Dionicio Brower MD [address] [place] [address] [place] [address] Referral ID Status Reason Start Date Expiration Date V isits Requested Visits Authorized [id number] Closed Auto-Generate d Referral 07/24/2021 08/23/2022 1 1 [facility] for referral (narrative)* Outpatient Procedure (Routine) - New Request Specialty Diagnoses / Procedures Referred By Juliac t Referred To Contact [facility] Diagnoses Positive colorectal cancer screening using Cologuard test Procedures COLONOSCOPY DIAGNOSTIC COLONOSCOPY FLX DX W/COLLJ SPEC WHEN PFRMVani Cole APRN.TELEGRAPH MESSENGER [address] [facility] [place] [address] [facility] [address] [place], [place] [id number] Referral ID Status Reason Start Date Expiration Date Visits Requested Visits Authorized [id number] New Request Auto-Generat ed Referral 06/08/2024 06/08/2025 1 1 * Outpatient Procedure (Routine) - New Request Specialty Diagnoses / Procedures Referred By Claire pickard Referred To Contact [facility] Diagnoses Positive colorectal cancer screening using Cologuard test Gastroesophageal reflux disease, unspecified whether esophagitis present Procedures EGD DIAGNOSTIC ESOPHAGOGASTRODUODENOSC OPY TRANSORAL DIAGNOSTIC Vani Mccann APRN.CNP [address] [place] [address] [facility] [address] [place], [place] [id number] Referral ID Status Reason Start Date Expiration Date Visits Requested Visits Authorized [id number] New Request Auto-Generat ed Referral 06/08/2024 06/08/2025 1 1 [facility] for visit Narrative* Diagnostic Procedure Only (Routine) - Closed Specialty Diagnoses / Procedures Referred By Contac t Referred To Contact XR IMAGING Diagnoses Right wrist pain Procedures XR WRIST GENERAL 3V PA/LAT/OBL RIGHT RADEX WRIST COMPLETE MINIMUM 3 VIEWS Dionicio Brower MD [address] [place] [address] [place] [address] Referral ID Status Reason Start Date Expiration Date V isits Requested Visits Authorized [id number] Closed Auto-Generate d Referral 05/25/2023 06/23/2024 1 1 [facility] for visit Narrative* Diagnostic Procedure Only (Urgent) - Closed Specialty Diagnoses / Procedures Referred By Contac t Referred To Contact XR IMAGING Diagnoses Foot pain, right Foot injury, right, initial encounter Procedures XR FOOT GENERAL 3V AP/LAT/OBL RIGHT RADEX FOOT COMPLETE MINIMUM 3 VIEWS Nadege Hills APRN.TELEGRAPH MESSENGER [address] [place] [address] [place] [address] Referral ID Status Reason Start Date Expiration Date V isits Requested Visits Authorized [id number] Closed Auto-Generate d Referral 09/21/2022 10/21/2023 1 1 [facility] for visit Narrative* Diagnostic Procedure Only (Urgent) - Closed Specialty Diagnoses / Procedures Referred By Contac t Referred To Contact XR IMAGING Diagnoses Injury of right upper extremity, initial encounter Procedures XR WRIST INJURY 4V PA/LAT/OBL/SCAPH RIGHT RADEX WRIST COMPLETE MINIMUM 3 VIEWS Andriy Temple APRN.TELEGRAPH MESSENGER [address] [place] [address] [place] [address] Referral ID Status Reason Start Date Expiration Date V isits Requested Visits Authorized [id number] Closed Auto-Generate d Referral 03/31/2022 04/30/2023 1 1 [facility] Summary Purpose Family History No Family History Records Found Relationship Condition Age at Onset Recorded Date/T shae Unknown Family History?No pe rtinent history Unknown April 22, 2014 9:45pm Family History?No pe rtinent history Unknown October 13, 2018 11:39pm Advance Directives No Advanced Directives Records FoundDocuments on File Type Date 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 Advance Directive(s) 12/13/2017 5:52 PM Documents on File Type Date 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 Advance Directive(s) 12/13/2017 5:52 PM Advance Directive Response Recorded Date/ Time Advance Directives No April 6:25pm Living Will No June 14 10:11am Power of Tax Senior Associate No June 14, 2023 10:11am Reason for Referral Specialty Diagnoses / Procedures Referred By Contac t Referred To Contact CT IMAGING Diagnoses Lung nodules Procedures CT CHEST WO IVCON DIAGNOSTIC COMPUTED TOMOGRAPHY THORAX W/O STEVENRST Dionicio Brwoer MD [address] [place] [address] Ct Imaging Referral ID Status Reason Start Date Expiration Date Visits Requested Visits Authorized [id number] Pending Review Auto-Generat ed Referral 07/24/2021 08/23/2022 1 1 Referral ID Status Reason Start Date Expiration Date Visits Requested Visits Authorized [id number] Pending Review Auto-Generat ed Referral 08/07/2022 09/06/2022 1 1 Specialty Diagnoses / Procedures Referred By Contac t Referred To Contact Pain Management Diagnoses DDD (degenerative disc disease), cervical Lumbar spondylosis Procedures CONSULT TO PAIN MGT OFFICE/OUTPATIENT [facility] 60-74 MINUTES Rudy Lugo PA-C [address] [place] [address] Referral ID Status Reason Start Date Expiration Date Visits Requested Visits Authorized [id number] Pending Review PCP Requested Referral 02/19/2023 1 1 Specialty Diagnoses / Procedures Referred By Contac t Referred To Contact Orthopedics Diagnoses De Quervain's syndrome (tenosynovitis) Procedures CONSULT TO ORTHOPAEDICS OFFICE/OUTPATIENT [facility] MDM 60-74 MINUTES Bruna Parker APRN.TELEGRAPH MESSENGER [address] [place] [address] Referral ID Status Reason Start Date Expiration Date Visits Requested Visits Authorized [id number] Pending Review PCP Requested Referral 04/22/2023 1 1 Specialty Diagnoses / Procedures Referred By Contac t Referred To Contact CT IMAGING Diagnoses Lung nodules Procedures CT CHEST WO IVCON DIAGNOSTIC COMPUTED TOMOGRAPHY THORAX [place] [address] [place] [address] [place] [address] Referral ID Status Reason Start Date Expiration Date V isits Requested Visits Authorized [id number] Closed Auto-Generate d Referral 05/28/2023 08/26/2023 1 1 Specialty Diagnoses / Procedures Referred By Contac t Referred To Contact Diagnoses Grief reaction Primary insomnia Bipolar 1 disorder (HCC) PTSD (post-traumatic stress disorder) Schizoaffective disorder, bipolar type (HCC) Procedures CONSULT TO PSYCHIATRY OFFICE/OUTPATIENT [facility] 60 MINUTES Dionicio Brower MD [address] [place] [address] Referral ID Status Reason Start Date Expiration Date Visits Requested Visits Authorized [id number] Pending Review PCP Requested Referral 10/13/2023 10/12/2024 1 1 Specialty Diagnoses / Procedures Referred By Contac t Referred To Contact General Surgery Diagnoses Positive colorectal cancer screening using Cologuard test Procedures CONSULT TO GENERAL SURGERY OFFICE/OUTPATIENT [facility] 60 MINUTES Dionicio Brower MD [address] [place] [address] Referral ID Status Reason Start Date Expiration Date Visits Requested Visits Authorized [id number] Authorized PCP Requested Referral 06/02/2024 06/02/2025 1 1 Health Concerns Infection Onset Date Last Indicated Resolved Time COVID-19 Rule-Out 11/22/2021 11/22/2021 Infection Onset Date Last Indicated Resolved Time COVID-19 Rule-Out 11/22/2021 11/22/2021 11/23/2021 7:34 AM EDT Chief Complaint and Reason for Visit Chief Complaint fall LEFT FLANK Additional Source Comments INFORMATION SOURCE (unrecogn ized section and content) DATE CREATED AUTHOR 12/21/2017 [facility] DATE CREATED AUTHOR AUTHOR'S ORGANIZ ATION 07/31/2022 [facility] DATE CREATED AUTHOR AUTHOR'S ORGANIZ ATION 03/18/2025 [facility] DATE CREATED AUTHOR AUTHOR'S ORGANIZ ATION 03/20/2025 [facility] Source Comments (unrecognize d section and content) In the event this informatio n is protected by the Federal Confidentiality of Alcohol and Drug Abuse Patient Records regulations: The Federal rules restrict any use of the information to criminally investigate or prosecute any alcohol or drug abuse patient.[facility] the event this information is protected by the Federal Confidentiality of Alcohol and Drug Abuse Patient Records regulations: The Federal rules restrict any use of the information to criminally investigate or prosecute any alcohol or drug abuse patient.[facility] the event this information is protected by the Federal Confidentiality of Alcohol and Drug Abuse Patient Records regulations: The Federal rules restrict any use of the information to criminally investigate or prosecute any alcohol or drug abuse patient.[facility] the event this information is protected by the Federal Confidentiality of Alcohol and Drug Abuse Patient Records regulations: The Federal rules restrict any use of the information to criminally investigate or prosecute any alcohol or drug abuse patient.[facility] the event this information is protected by the Federal Confidentiality of Alcohol and Drug Abuse Patient Records regulations: The Federal rules restrict any use of the information to criminally investigate or prosecute any alcohol or drug abuse patient.[facility] the event this information is protected by the Federal Confidentiality of Alcohol and Drug Abuse Patient Records regulations: The Federal rules restrict any use of the information to criminally investigate or prosecute any alcohol or drug abuse patient.[facility] the event this information is protected by the Federal Confidentiality of Alcohol and Drug Abuse Patient Records regulations: The Federal rules restrict any use of the information to criminally investigate or prosecute any alcohol or drug abuse patient.[facility] the event this information is protected by the Federal Confidentiality of Alcohol and Drug Abuse Patient Records regulations: The Federal rules restrict any use of the information to criminally investigate or prosecute any alcohol or drug abuse patient.[facility] the event this information is protected by the Federal Confidentiality of Alcohol and Drug Abuse Patient Records regulations: The Federal rules restrict any use of the information to criminally investigate or prosecute any alcohol or drug abuse patient.[facility] the event this information is protected by the Federal Confidentiality of Alcohol and Drug Abuse Patient Records regulations: The Federal rules restrict any use of the information to criminally investigate or prosecute any alcohol or drug abuse patient.[facility] the event this information is protected by the Federal Confidentiality of Alcohol and Drug Abuse Patient Records regulations: The Federal rules restrict any use of the information to criminally investigate or prosecute any alcohol or drug abuse patient.[facility] the event this information is protected by the Federal Confidentiality of Alcohol and Drug Abuse Patient Records regulations: The Federal rules restrict any use of the information to criminally investigate or prosecute any alcohol or drug abuse patient.[facility] the event this information is protected by the Federal Confidentiality of Alcohol and Drug Abuse Patient Records regulations: The Federal rules restrict any use of the information to criminally investigate or prosecute any alcohol or drug abuse patient.[facility] the event this information is protected by the Federal Confidentiality of Alcohol and Drug Abuse Patient Records regulations: The Federal rules restrict any use of the information to criminally investigate or prosecute any alcohol or drug abuse patient.[facility] the event this information is protected by the Federal Confidentiality of Alcohol and Drug Abuse Patient Records regulations: The Federal rules restrict any use of the information to criminally investigate or prosecute any alcohol or drug abuse patient.[facility] the event this information is protected by the Federal Confidentiality of Alcohol and Drug Abuse Patient Records regulations: The Federal rules restrict any use of the information to criminally investigate or prosecute any alcohol or drug abuse patient.[facility] the event this information is protected by the Federal Confidentiality of Alcohol and Drug Abuse Patient Records regulations: The Federal rules restrict any use of the information to criminally investigate or prosecute any alcohol or drug abuse patient.[facility] the event this information is protected by the Federal Confidentiality of Alcohol and Drug Abuse Patient Records regulations: The Federal rules restrict any use of the information to criminally investigate or prosecute any alcohol or drug abuse patient.[facility] the event this information is protected by the Federal Confidentiality of Alcohol and Drug Abuse Patient Records regulations: The Federal rules restrict any use of the information to criminally investigate or prosecute any alcohol or drug abuse patient.[facility] the event this information is protected by the Federal Confidentiality of Alcohol and Drug Abuse Patient Records regulations: The Federal rules restrict any use of the information to criminally investigate or prosecute any alcohol or drug abuse patient.[facility] the event this information is protected by the Federal Confidentiality of Alcohol and Drug Abuse Patient Records regulations: The Federal rules restrict any use of the information to criminally investigate or prosecute any alcohol or drug abuse patient.[facility] the event this information is protected by the Federal Confidentiality of Alcohol and Drug Abuse Patient Records regulations: The Federal rules restrict any use of the information to criminally investigate or prosecute any alcohol or drug abuse patient.[facility] the event this information is protected by the Federal Confidentiality of Alcohol and Drug Abuse Patient Records regulations: The Federal rules restrict any use of the information to criminally investigate or prosecute any alcohol or drug abuse patient.[facility] the event this information is protected by the Federal Confidentiality of Alcohol and Drug Abuse Patient Records regulations: The Federal rules restrict any use of the information to criminally investigate or prosecute any alcohol or drug abuse patient.[facility] the event this information is protected by the Federal Confidentiality of Alcohol and Drug Abuse Patient Records regulations: The Federal rules restrict any use of the information to criminally investigate or prosecute any alcohol or drug abuse patient.[facility] the event this information is protected by the Federal Confidentiality of Alcohol and Drug Abuse Patient Records regulations: The Federal rules restrict any use of the information to criminally investigate or prosecute any alcohol or drug abuse patient.[facility] the event this information is protected by the Federal Confidentiality of Alcohol and Drug Abuse Patient Records regulations: The Federal rules restrict any use of the information to criminally investigate or prosecute any alcohol or drug abuse patient.[facility] the event this information is protected by the Federal Confidentiality of Alcohol and Drug Abuse Patient Records regulations: The Federal rules restrict any use of the information to criminally investigate or prosecute any alcohol or drug abuse patient.[facility] the event this information is protected by the Federal Confidentiality of Alcohol and Drug Abuse Patient Records regulations: The Federal rules restrict any use of the information to criminally investigate or prosecute any alcohol or drug abuse patient.[facility] the event this information is protected by the Federal Confidentiality of Alcohol and Drug Abuse Patient Records regulations: The Federal rules restrict any use of the information to criminally investigate or prosecute any alcohol or drug abuse patient.[facility] the event this information is protected by the Federal Confidentiality of Alcohol and Drug Abuse Patient Records regulations: The Federal rules restrict any use of the information to criminally investigate or prosecute any alcohol or drug abuse patient.[facility] the event this information is protected by the Federal Confidentiality of Alcohol and Drug Abuse Patient Records regulations: The Federal rules restrict any use of the information to criminally investigate or prosecute any alcohol or drug abuse patient.[facility]In the event this information is protected by the Federal Confidentiality of Alcohol and Drug Abuse Patient Records regulations: The Federal rules restrict any use of the information to criminally investigate or prosecute any alcohol or drug abuse patient.[facility]In the event this information is protected by the Federal Confidentiality of Alcohol and Drug Abuse Patient Records regulations: The Federal rules restrict any use of the information to criminally investigate or prosecute any alcohol or drug abuse patient.[facility]In the event this information is protected by the Federal Confidentiality of Alcohol and Drug Abuse Patient Records regulations: The Federal rules restrict any use of the information to criminally investigate or prosecute any alcohol or drug abuse patient.[facility] HospitalIn the event this information is protected by the Federal Confidentiality of Alcohol and Drug Abuse Patient Records regulations: The Federal rules restrict any use of the information to criminally investigate or prosecute any alcohol or drug abuse patient.[facility] HospitalIn the event this information is protected by the Federal Confidentiality of Alcohol and Drug Abuse Patient Records regulations: The Federal rules restrict any use of the information to criminally investigate or prosecute any alcohol or drug abuse patient.[facility]In the event this information is protected by the Federal Confidentiality of Alcohol and Drug Abuse Patient Records regulations: The Federal rules restrict any use of the information to criminally investigate or prosecute any alcohol or drug abuse patient.[facility]In the event this information is protected by the Federal Confidentiality of Alcohol and Drug Abuse Patient Records regulations: The Federal rules restrict any use of the information to criminally investigate or prosecute any alcohol or drug abuse patient.[facility]In the event this information is protected by the Federal Confidentiality of Alcohol and Drug Abuse Patient Records regulations: The Federal rules restrict any use of the information to criminally investigate or prosecute any alcohol or drug abuse patient.[facility] HospitalIn the event this information is protected by the Federal Confidentiality of Alcohol and Drug Abuse Patient Records regulations: The Federal rules restrict any use of the information to criminally investigate or prosecute any alcohol or drug abuse patient.[facility] HospitalIn the event this information is protected by the Federal Confidentiality of Alcohol and Drug Abuse Patient Records regulations: The Federal rules restrict any use of the information to criminally investigate or prosecute any alcohol or drug abuse patient.[facility] HospitalIn the event this information is protected by the Federal Confidentiality of Alcohol and Drug Abuse Patient Records regulations: The Federal rules restrict any use of the information to criminally investigate or prosecute any alcohol or drug abuse patient.[facility] HospitalIn the event this information is protected by the Federal Confidentiality of Alcohol and Drug Abuse Patient Records regulations: The Federal rules restrict any use of the information to criminally investigate or prosecute any alcohol or drug abuse patient.[facility] HospitalIn the event this information is protected by the Federal Confidentiality of Alcohol and Drug Abuse Patient Records regulations: The Federal rules restrict any use of the information to criminally investigate or prosecute any alcohol or drug abuse patient.[facility] HospitalIn the event this information is protected by the Federal Confidentiality of Alcohol and Drug Abuse Patient Records regulations: The Federal rules restrict any use of the information to criminally investigate or prosecute any alcohol or drug abuse patient.[facility] HospitalIn the event this information is protected by the Federal Confidentiality of Alcohol and Drug Abuse Patient Records regulations: The Federal rules restrict any use of the information to criminally investigate or prosecute any alcohol or drug abuse patient.[facility] HospitalIn the event this information is protected by the Federal Confidentiality of Alcohol and Drug Abuse Patient Records regulations: The Federal rules restrict any use of the information to criminally investigate or prosecute any alcohol or drug abuse patient.[facility] HospitalIn the event this information is protected by the Federal Confidentiality of Alcohol and Drug Abuse Patient Records regulations: The Federal rules restrict any use of the information to criminally investigate or prosecute any alcohol or drug abuse patient.[facility] HospitalIn the event this information is protected by the Federal Confidentiality of Alcohol and Drug Abuse Patient Records regulations: The Federal rules restrict any use of the information to criminally investigate or prosecute any alcohol or drug abuse patient.[facility] HospitalIn the event this information is protected by the Federal Confidentiality of Alcohol and Drug Abuse Patient Records regulations: The Federal rules restrict any use of the information to criminally investigate or prosecute any alcohol or drug abuse patient.[facility] HospitalIn the event this information is protected by the Federal Confidentiality of Alcohol and Drug Abuse Patient Records regulations: The Federal rules restrict any use of the information to criminally investigate or prosecute any alcohol or drug abuse patient.[facility] HospitalIn the event this information is protected by the Federal Confidentiality of Alcohol and Drug Abuse Patient Records regulations: The Federal rules restrict any use of the information to criminally investigate or prosecute any alcohol or drug abuse patient.[facility] HospitalIn the event this information is protected by the Federal Confidentiality of Alcohol and Drug Abuse Patient Records regulations: The Federal rules restrict any use of the information to criminally investigate or prosecute any alcohol or drug abuse patient.[facility] HospitalIn the event this information is protected by the Federal Confidentiality of Alcohol and Drug Abuse Patient Records regulations: The Federal rules restrict any use of the information to criminally investigate or prosecute any alcohol or drug abuse patient.[facility] HospitalIn the event this information is protected by the Federal Confidentiality of Alcohol and Drug Abuse Patient Records regulations: The Federal rules restrict any use of the information to criminally investigate or prosecute any alcohol or drug abuse patient.[facility] HospitalIn the event this information is protected by the Federal Confidentiality of Alcohol and Drug Abuse Patient Records regulations: The Federal rules restrict any use of the information to criminally investigate or prosecute any alcohol or drug abuse patient.[facility] HospitalIn the event this information is protected by the Federal Confidentiality of Alcohol and Drug Abuse Patient Records regulations: The Federal rules restrict any use of the information to criminally investigate or prosecute any alcohol or drug abuse patient.[facility] HospitalIn the event this information is protected by the Federal Confidentiality of Alcohol and Drug Abuse Patient Records regulations: The Federal rules restrict any use of the information to criminally investigate or prosecute any alcohol or drug abuse patient.[facility] HospitalIn the event this information is protected by the Federal Confidentiality of Alcohol and Drug Abuse Patient Records regulations: The Federal rules restrict any use of the information to criminally investigate or prosecute any alcohol or drug abuse patient.[facility] HospitalIn the event this information is protected by the Federal Confidentiality of Alcohol and Drug Abuse Patient Records regulations: The Federal rules restrict any use of the information to criminally investigate or prosecute any alcohol or drug abuse patient.[facility] HospitalIn the event this information is protected by the Federal Confidentiality of Alcohol and Drug Abuse Patient Records regulations: The Federal rules restrict any use of the information to criminally investigate or prosecute any alcohol or drug abuse patient.[facility] HospitalIn the event this information is protected by the Federal Confidentiality of Alcohol and Drug Abuse Patient Records regulations: The Federal rules restrict any use of the information to criminally investigate or prosecute any alcohol or drug abuse patient.[facility] HospitalIn the event this information is protected by the Federal Confidentiality of Alcohol and Drug Abuse Patient Records regulations: The Federal rules restrict any use of the information to criminally investigate or prosecute any alcohol or drug abuse patient.[facility] HospitalIn the event this information is protected by the Federal Confidentiality of Alcohol and Drug Abuse Patient Records regulations: The Federal rules restrict any use of the information to criminally investigate or prosecute any alcohol or drug abuse patient.[facility] HospitalIn the event this information is protected by the Federal Confidentiality of Alcohol and Drug Abuse Patient Records regulations: The Federal rules restrict any use of the information to criminally investigate or prosecute any alcohol or drug abuse patient.[facility] HospitalIn the event this information is protected by the Federal Confidentiality of Alcohol and Drug Abuse Patient Records regulations: The Federal rules restrict any use of the information to criminally investigate or prosecute any alcohol or drug abuse patient.[facility] HospitalIn the event this information is protected by the Federal Confidentiality of Alcohol and Drug Abuse Patient Records regulations: The Federal rules restrict any use of the information to criminally investigate or prosecute any alcohol or drug abuse patient.[facility] HospitalIn the event this information is protected by the Federal Confidentiality of Alcohol and Drug Abuse Patient Records regulations: The Federal rules restrict any use of the information to criminally investigate or prosecute any alcohol or drug abuse patient.[facility] HospitalIn the event this information is protected by the Federal Confidentiality of Alcohol and Drug Abuse Patient Records regulations: The Federal rules restrict any use of the information to criminally investigate or prosecute any alcohol or drug abuse patient.[facility] HospitalIn the event this information is protected by the Federal Confidentiality of Alcohol and Drug Abuse Patient Records regulations: The Federal rules restrict any use of the information to criminally investigate or prosecute any alcohol or drug abuse patient.[facility] HospitalIn the event this information is protected by the Federal Confidentiality of Alcohol and Drug Abuse Patient Records regulations: The Federal rules restrict any use of the information to criminally investigate or prosecute any alcohol or drug abuse patient.[facility] HospitalIn the event this information is protected by the Federal Confidentiality of Alcohol and Drug Abuse Patient Records regulations: The Federal rules restrict any use of the information to criminally investigate or prosecute any alcohol or drug abuse patient.[facility] HospitalIn the event this information is protected by the Federal Confidentiality of Alcohol and Drug Abuse Patient Records regulations: The Federal rules restrict any use of the information to criminally investigate or prosecute any alcohol or drug abuse patient.[facility] HospitalIn the event this information is protected by the Federal Confidentiality of Alcohol and Drug Abuse Patient Records regulations: The Federal rules restrict any use of the information to criminally investigate or prosecute any alcohol or drug abuse patient.[facility] HospitalIn the event this information is protected by the Federal Confidentiality of Alcohol and Drug Abuse Patient Records regulations: The Federal rules restrict any use of the information to criminally investigate or prosecute any alcohol or drug abuse patient.[facility] HospitalIn the event this information is protected by the Federal Confidentiality of Alcohol and Drug Abuse Patient Records regulations: The Federal rules restrict any use of the information to criminally investigate or prosecute any alcohol or drug abuse patient.[facility] HospitalIn the event this information is protected by the Federal Confidentiality of Alcohol and Drug Abuse Patient Records regulations: The Federal rules restrict any use of the information to criminally investigate or prosecute any alcohol or drug abuse patient.[facility] HospitalIn the event this information is protected by the Federal Confidentiality of Alcohol and Drug Abuse Patient Records regulations: The Federal rules restrict any use of the information to criminally investigate or prosecute any alcohol or drug abuse patient.[facility] HospitalIn the event this information is protected by the Federal Confidentiality of Alcohol and Drug Abuse Patient Records regulations: The Federal rules restrict any use of the information to criminally investigate or prosecute any alcohol or drug abuse patient.[facility] HospitalIn the event this information is protected by the Federal Confidentiality of Alcohol and Drug Abuse Patient Records regulations: The Federal rules restrict any use of the information to criminally investigate or prosecute any alcohol or drug abuse patient.[facility] the event this information is protected by the Federal Confidentiality of Alcohol and Drug Abuse Patient Records regulations: The Federal rules restrict any use of the information to criminally investigate or prosecute any alcohol or drug abuse patient.[facility] HospitalIn the event this information is protected by the Federal Confidentiality of Alcohol and Drug Abuse Patient Records regulations: The Federal rules restrict any use of the information to criminally investigate or prosecute any alcohol or drug abuse patient.[facility] HospitalIn the event this information is protected by the Federal Confidentiality of Alcohol and Drug Abuse Patient Records regulations: The Federal rules restrict any use of the information to criminally investigate or prosecute any alcohol or drug abuse patient.[facility] HospitalIn the event this information is protected by the Federal Confidentiality of Alcohol and Drug Abuse Patient Records regulations: The Federal rules restrict any use of the information to criminally investigate or prosecute any alcohol or drug abuse patient.[facility] HospitalIn the event this information is protected by the Federal Confidentiality of Alcohol and Drug Abuse Patient Records regulations: The Federal rules restrict any use of the information to criminally investigate or prosecute any alcohol or drug abuse patient.[facility] Reason for Visit (unrecogniz ed section and content) Reason Comments Radiology CT Specialty Diagnoses / Procedures Referred By Contac t Referred To Contact CT IMAGING Diagnoses Lung nodules Procedures CT CHEST WO IVCON DIAGNOSTIC COMPUTED TOMOGRAPHY THORAX W/O CNTRST Dionicio Brower MD [address] [place] [address] [facility] [place] [address] Referral ID Status Reason Start Date Expiration Date V isits Requested Visits Authorized [id number] Closed Auto-Generate d Referral 05/28/2023 08/26/2023 1 1 Reason Comments Hand Pain R hand pain Specialty Diagnoses / Procedures Referred By Contac t Referred To Contact FAMILY MEDICINE Diagnoses followup Procedures follow up Self [facility] [address] [place] [address] Referral ID Status Reason Start Date Expiration Date Visits Requested Visits Authorized [id number] Authorized Financial Clearance Required - Self Pay Patient Cleared - Qualified HCAP/501/FA 02/13/2022 05/14/2022 99 99 Specialty Diagnoses / Procedures Referred By Contac t Referred To Contact Family Practice / URGENT CARE CLINIC Diagnoses cold like symptoms/fever Procedures URGENT CARE Self Chio Vale APRN.[employer] [address] [place] [address] Referral ID Status Reason Start Date Expiration Date Visits Requested Visits Authorized [id number] Authorized Financial Clearance Required - Self Pay Patient Cleared - Qualified HCAP/501/FA 05/13/2021 08/11/2021 99 99 Reason Comments Results Reason Onset Date Comments Erroneous encounter-disregard 08/20/2021 Reason Onset Date Comments Refill Request 09/01/2021 Specialty Diagnoses / Procedures Referred By Contac t Referred To Contact Family Practice / FAMILY MEDICINE Diagnoses coping issues Procedures 4C EST Self Rudy Lugo PA-C [address] [place] [address] Referral ID Status Reason Start Date Expiration Date Visits Requested Visits Authorized [id number] Authorized Financial Clearance Required - Self Pay Patient Cleared - Qualified HCAP/501/FA 09/08/2021 12/07/2021 99 99 Reason Comments Head Injury Reason Onset Date Comments Refill Request 09/22/2021 Reason Comments Recheck Specialty Diagnoses / Procedures Referred By Contac t Referred To Contact Family Practice / FAMILY MEDICINE Diagnoses coping issues Procedures 4C EST Self Rudy Lugo PA-C [address] [place] [address] Reason Comments Appointment Reason Onset Date Comments Refill Request 10/27/2021 Reason Comments Medication Problem Reason Onset Date Comments Refill Request 11/05/2021 Reason Comments Head Congestion cough, vomiting and bodyaches, right ear pain x 3 days Specialty Diagnoses / Procedures Referred By Contac t Referred To Contact [facility]3] Diagnoses possible flu - took home COVID test it was positive Procedures possible flu - took home COVID test it was positive Cole Frazier MD [address] [place] [address] [facility] [address] [place] [address] Referral ID Status Reason Start Date Expiration Date Visits Requested Visits Authorized [id number] Pending Review Financial Clearance Required - Self Pay 11/22/2021 02/20/2022 1 1 Reason Comments Results Reason Comments Refill Request Reason Onset Date Comments Refill Request 01/01/2022 Reason Onset Date Comments Refill Request 01/15/2022 Reason Comments Back Pain Pain (Shoulder Pain) Numbness Toes Reason Comments Follow Up Neck pain, headaches Specialty Diagnoses / Procedures Referred By Contac t Referred To Contact FAMILY MEDICINE Diagnoses followup Procedures [facility] [address] [place] [address] Reason Comments Ear Pain R ear pain, [...] congestion x5 days, R ear muffled hearing Reason Comments Consult Specialty Diagnoses / Procedures Referred By Contac t Referred To Contact Orthopedics Diagnoses Right wrist pain Procedures CONSULT TO ORTHOPAEDICS OFFICE/OUTPATIENT [facility] 60 MINUTES Dionicio Brower MD [address] [place] [address] Referral ID Status Reason Start Date Expiration Date V isits Requested Visits Authorized [id number] Closed PCP Requested Referral 05/25/2023 05/24/2024 1 1 Reason Onset Date Comments Refill Request 07/03/2023 Reason Comments Pain Reason Onset Date Comments Refill Request 09/17/2023 Reason Comments Discussion Reason Comments Follow Up Reason Onset Date Comments Refill Request 11/15/2023 Reason Comments Patient Update Reason Onset Date Comments Refill Request 12/16/2023 Reason Comments Acute Visit R ear pain x couple months Specialty Diagnoses / Procedures Referred By Contac t Referred To Contact Family Medicine / URGENT CARE CLINIC Diagnoses cold like symptoms/fever Procedures URGENT CARE Self Chio Vale APRN.DAVID [address] [place] [address] Referral ID Status Reason Start Date Expiration Date V isits Requested Visits Authorized [id number] Closed Financial Clearance Required - Self Pay Patient Cleared - Qualified HCAP/501/FA 05/13/2021 08/11/2021 99 99 Reason Onset Date Comments Refill Request 02/28/2024 Reason Comments Migraine Reason Comments Barky Cough With wheeze & conges tion x 2 days; +Covid exposure in family Reason Comments Recheck Follow up Urg Care- not feeling any better; c/o body aches, cough, vomiting, diarrhea, headache, chest presssure; tested negative for COVID/flu Reason Onset Date Comments Refill Request 05/18/2024 Reason Comments Results cologuard Reason Comments Colon Consult Positive Cologard Specialty Diagnoses / Procedures Referred By Contac t Referred To Contact General Surgery Diagnoses Positive colorectal cancer screening using Cologuard test Procedures CONSULT TO GENERAL SURGERY OFFICE/OUTPATIENT [facility] MDM 60 MINUTES Dionicio Brower MD [address] [place] [id number] Referral ID Status Reason Start Date Expiration Date V isits Requested Visits Authorized [id number] Closed PCP Requested Referral 06/02/2024 06/02/2025 1 1 Reason Comments Follow Up Reason Onset Date Comments Refill Request 08/09/2024 Reason Comments New Patient Migraine- c/o migrai aleksandra x20 yr, 4x/ wk, starts with pain in neck radiates to anterior head, triggered by smell, laying down, lights Specialty Diagnoses / Procedures Referred By Contac t Referred To Contact Neurology Diagnoses Migraine without aura and with status migrainosus, not intractable Procedures CONSULT TO NEUROLOGY OFFICE/OUTPATIENT [facility] MDM 60 MINUTES Dionicio Brower MD [address] [place] [address] Phone: tel: fax: Referral ID Status Reason Start Date Expiration Date V isits Requested Visits Authorized [id number] Closed PCP Requested Referral 07/19/2024 07/19/2025 1 1 Reason Onset Date Comments Refill Request 11/12/2024 Reason Onset Date Comments Refill Request 11/22/2024 Reason Comments Follow Up Migraines Reason Comments PAs submitted Care Teams (unrecognized sec tion and content) Hand Paster Relationship Specialty Start Date End Date Dionicio Brower MD [address] [place] [address] PCP - General Family Practice 07/10/13 Hand Paster Relationship Specialty Start Date End Date Dionicio Brower MD [address] [place] [address] PCP - General Family Practice 07/10/13 Hand Paster Relationship Specialty Start Date End Date Dionicio Brower MD [address] [place] [address] PCP - General Family Practice 07/10/13 Hand Paster Relationship Specialty Start Date End Date Dionicio Brower MD [address] [place] [address] PCP - General Family Practice 07/10/13 Hand Paster Relationship Specialty Start Date End Date Dionicio Brower MD [address] [place] [address] PCP - General Family Practice 07/10/13 Hand Paster Relationship Specialty Start Date End Date Dionicio Brower MD [address] [place] [address] PCP - General Family Practice 07/10/13 Hand Paster Relationship Specialty Start Date End Date Dionicio Brower MD [address] [place] [address] PCP - General Family Practice 07/10/13 Hand Paster Relationship Specialty Start Date End Date Dionicio Brower MD [address] [place] [address] PCP - General Family Practice 07/10/13 Hand Paster Relationship Specialty Start Date End Date Dionicio Brower MD [address] [place] [address] PCP - General Family Practice 07/10/13 Hand Paster Relationship Specialty Start Date End Date Dionicio Brower MD [address] [place] [address] PCP - General Family Practice 07/10/13 Hand Paster Relationship Specialty Start Date End Date Dionicio Brower MD [address] [place] [address] PCP - General Family Practice 07/10/13 Hand Paster Relationship Specialty Start Date End Date Dionicio Brower MD [address] [place] [address] PCP - General Family Practice 07/10/13 Hand Paster Relationship Specialty Start Date End Date Dionicio Brower MD [address] [place] [address] PCP - General Family Practice 07/10/13 Hand Paster Relationship Specialty Start Date End Date Dionicio Brower MD [address] [place] [address] PCP - General Family Practice 07/10/13 Hand Paster Relationship Specialty Start Date End Date Dionicio Brower MD [address] [place] [address] PCP - General Family Medicine 07/10/13 Hand Paster Relationship Specialty Start Date End Date Dionicio Brower MD [address] [place] [address] PCP - General Family Medicine 07/10/13 Hand Paster Relationship Specialty Start Date End Date Dionicio Brower MD [address] [place] [address] PCP - General Family Medicine 07/10/13 Hand Paster Relationship Specialty Start Date End Date Dionicio Brower MD [address] [place] [address] PCP - General Family Medicine 07/10/13 Hand Paster Relationship Specialty Start Date End Date Dionicio Brower MD [address] [place] [address] PCP - General Family Medicine 07/10/13 Hand Paster Relationship Specialty Start Date End Date Dionicio Brower MD [address] [place] [address] PCP - General Family Medicine 07/10/13 Hand Paster Relationship Specialty Start Date End Date Dionicio Brower MD [address] [place] [address] PCP - General Family Medicine 07/10/13 Hand Paster Relationship Specialty Start Date End Date Dionicio Brower MD [address] [place] [address] PCP - General Family Medicine 07/10/13 Hand Paster Relationship Specialty Start Date End Date Dionicio Brower MD [address] [place] [address] PCP - General Family Medicine 07/10/13 Hand Paster Relationship Specialty Start Date End Date Dionicio Brower MD [address] [place] [address] PCP - General Family Medicine 07/10/13 Hand Paster Relationship Specialty Start Date End Date Dionicio Brower MD [address] [place] [address] PCP - General Family Medicine 07/10/13 Hand Paster Relationship Specialty Start Date End Date Dionicio Brower MD [address] [place] [address] PCP - General Family Medicine 07/10/13 Hand Paster Relationship Specialty Start Date End Date Dionciio Brower MD [address] [facility] [place], [place] [address] PCP - General Family Medicine 07/10/13 Hand Paster Relationship Specialty Start Date End Date Dionicio Brower MD [address] [place] [address] PCP - General Family Medicine 07/10/13 Hand Paster Relationship Specialty Start Date End Date Dionicio Brower MD [address] [place] [address] PCP - General Family Medicine 07/10/13 Hand Paster Relationship Specialty Start Date End Date Dionicio Brower MD [address] [place] [address] PCP - General Family Medicine 07/10/13 Hand Paster Relationship Specialty Start Date End Date Dionicio Brower MD [address] [place] [address] PCP - General Family Medicine 07/10/13 Hand Paster Relationship Specialty Start Date End Date Dionicio Brower MD [address] [place] [address] PCP - General Family Medicine 07/10/13 Team Status: Active Member Role Status Dates Dr. Dionicio Brower MD Family Provider Active Dr. Dionicio Brower MD Primary Care Provider Active Team Status: Inactive Member Role Status Dates Dr. Dionicio Brower MD Primary Care Provider Active Carlos Willams MD Emergency Provider Active Team Status: Inactive Member Role Status Dates Dr. Dionicio Brower MD Primary Care Provider Active Dr. Kun Newby MD Attending Provider, Emergency Provider Active Hand Paster Relationship Specialty Start Date End Date Dionicio Brower MD [address] [facility] [place], [place] [address] PCP - General Family Medicine 07/10/13 Hand Paster Relationship Specialty Start Date End Date Dionicio Brower MD [address] [place] [address] PCP - General Family Medicine 07/10/13 Hand Paster Relationship Specialty Start Date End Date Dionicio Brower MD [address] [place] [address] PCP - General Family Medicine 07/10/13 Hand Paster Relationship Specialty Start Date End Date Dionicio Brower MD [address] [place] [address] PCP - General Family Medicine 07/10/13 Hand Paster Relationship Specialty Start Date End Date Dionicio Brower MD [address] [place] [address] PCP - General Family Medicine 07/10/13 Hand Paster Relationship Specialty Start Date End Date Dionicio Brower MD [address] [place] [address] PCP - General Family Medicine 07/10/13 Hand Paster Relationship Specialty Start Date End Date Dionicio Brower MD [address] [place] [address] PCP - General Family Medicine 07/10/13 Hand Paster Relationship Specialty Start Date End Date Dionicio Brower MD [address] [place] [address] PCP - General Family Medicine 07/10/13 Hand Paster Relationship Specialty Start Date End Date Dionicio Brower MD [address] [facility] [place] [address] PCP - General Family Medicine 07/10/13 Hand Paster Relationship Specialty Start Date End Date Dionicio Brower MD [address] [place] [address] PCP - General Family Medicine 07/10/13 Hand Paster Relationship Specialty Start Date End Date Dionicio Brower MD [address] [place] [address] PCP - General Family Medicine 07/10/13 Hand Paster Relationship Specialty Start Date End Date Dionicio Brower MD [address] [place] [address] PCP - General Family Medicine 07/10/13 Hand Paster Relationship Specialty Start Date End Date Dionicio Brower MD [address] [place] [address] PCP - General Family Medicine 07/10/13 Hand Paster Relationship Specialty Start Date End Date Dionicio Brower MD [address] [place] [address] PCP - General Family Medicine 07/10/13 Hand Paster Relationship Specialty Start Date End Date Dionicio Brower MD [address] [place] [address] PCP - General Family Medicine 07/10/13 Hand Paster Relationship Specialty Start Date End Date Dionicio Brower MD [address] [place] [address] PCP - General Family Medicine 07/10/13 Bruna Parker, ILIR.TELEGRAPH MESSENGER [address] [place] [address] Poultry Farm Laborer Family Medicine 04/17/24 Debbie Pop APRN.TELEGRAPH MESSENGER [address] [place] [address] Poultry Farm Laborer Family Medicine 04/17/24 Hand Paster Relationship Specialty Start Date End Date Dionicio Brower MD [address] [place] [address] PCP - General Family Medicine 07/10/13 Bruna Parker APRN.TELEGRAPH MESSENGER [address] [place] [address] [employer]oultry Farm Laborer Family Medicine 04/17/24 Debbie Pop APRN.TELEGRAPH MESSENGER [address] [place] [address] [employer]oultry Farm Laborer Family Medicine 04/17/24 Hand Paster Relationship Specialty Start Date End Date Dionicio Brower MD [address] [place] [address] PCP - General Family Medicine 07/10/13 Bruna Parker APRN.TELEGRAPH MESSENGER [address] [facility] [place] [address] Poultry Farm Laborer Family Medicine 04/17/24 Debbie Pop APRN.TELEGRAPH MESSENGER [address] [place] [address] [employer]oultry Farm Laborer Family Medicine 04/17/24 Hand Paster Relationship Specialty Start Date End Date Dionicio Brower MD [address] [place] [address] PCP - General Family Medicine 07/10/13 Bruna Parker APRN.TELEGRAPH MESSENGER [address] [place] [address] Poultry Farm Laborer Family Medicine 04/17/24 Debbie Pop APRN.TELEGRAPH MESSENGER [address] [place] [address] Poultry Farm Laborer Family Medicine 04/17/24 Hand Paster Relationship Specialty Start Date End Date Dionicio Brower MD [address] [place] [address] PCP - General Family Medicine 07/10/13 Bruna Parker APRN.TELEGRAPH MESSENGER [address] [place] [address] Poultry Farm Laborer Family Medicine 04/17/24 Debbie Pop APRN.TELEGRAPH MESSENGER [address] [place] [address] Poultry Farm Laborer Family Medicine 04/17/24 Hand Paster Relationship Specialty Start Date End Date Dionicio Brower MD [address] [place] [address] PCP - General Family Medicine 07/10/13 Bruna Parker APRN.TELEGRAPH MESSENGER [address] [place] [address] Poultry Farm Laborer Family Medicine 04/17/24 Debbie Pop APRN.TELEGRAPH MESSENGER [address] [place] [address] Poultry Farm Laborer Family Medicine 04/17/24 Hand Paster Relationship Specialty Start Date End Date Dionicio Brower MD [address] [place] [address] PCP - General Family Medicine 07/10/13 Bruna Parker MAKEUP SALES CONSULTANT.TELEGRAPH MESSENGER [address] [facility] [place] [address] [facility] Debbie Pop MAKEUP SALES CONSULTANT.TELEGRAPH MESSENGER [address] [place] [address] [facility] 04/17/24 Hand Paster Relationship Specialty Start Date End Date Dionicio Brower MD [address] [place] [address] PCP - General Family Medicine 07/10/13 Bruna Parker MAKEUP SALES CONSULTANT.TELEGRAPH MESSENGER [address] [facility] [place] [address] [facility] 04/17/24 Debbie Pop MAKEUP SALES CONSULTANT.TELEGRAPH MESSENGER [address] [place] [address] [facility] 04/17/24 Hand Paster Relationship Specialty Start Date End Date Dionicio Brower MD [address] [place] [address] PCP - General Family Medicine 07/10/13 Bruna Parker MAKEUP SALES CONSULTANT.TELEGRAPH MESSENGER [address] [place] [address] [facility] 04/17/24 Debbie Pop APRN.TELEGRAPH MESSENGER [address] [place] [address] [employer] Farm Laborer Family Medicine 04/17/24 Hand Paster Relationship Specialty Start Date End Date Dionicio Brower MD [address] [place] [address] PCP - General Family Medicine 07/10/13 Bruna Parker APRN.TELEGRAPH MESSENGER [address] [facility] [place] [address] [employer] Farm Laborer Family Medicine 04/17/24 Debbie Pop APRN.TELEGRAPH MESSENGER [address] [place] [address] [facility] [place] 04/17/24 Hand Paster Relationship Specialty Start Date End Date Dionicio Brower MD [address] [place] [address] PCP - General Family Medicine 07/10/13 rBuna Parker MAKEUP SALES CONSULTANT.TELEGRAPH MESSENGER [address] [place] [place] [address] P[employer] Farm Laborer Family Medicine 04/17/24 Debbie Pop APRN.TELEGRAPH MESSENGER [address] [place] [address] [employer] Farm Laborer Family Medicine 04/17/24 Hand Paster Relationship Specialty Start Date End Date Dionicio Brower MD [address] [place] [address] PCP - General Family Medicine 07/10/13 Bruna Parker MAKEUP SALES CONSULTANT.TELEGRAPH MESSENGER [address] [place] [address] [facility] [place] 04/17/24 Debbie Pop APRN.TELEGRAPH MESSENGER [address] [place] [address] [facility] 04/17/24 Hand Paster Relationship Specialty Start Date End Date Dionicio Brower MD [address] [place] [address] PCP - General Family Medicine 07/10/13 Bruna Parker APRN.TELEGRAPH MESSENGER [address] [place] [address] [facility] 04/17/24 Debbie Pop APRN.TELEGRAPH MESSENGER [address] [place] [address] [facility] 04/17/24 Hand Paster Relationship Specialty Start Date End Date Dionicio Brower MD [address] [place] [address] PCP - General Family Medicine 07/10/13 Bruna Parker APRN.TELEGRAPH MESSENGER [address] [place] [address] [facility] 04/17/24 Debbie Pop APRN.TELEGRAPH MESSENGER [address] [place] [address] [facility] 04/17/24 Goals (unrecognized section and content) Goals may be documented in a n alternate section FOR RECORDS PERTAINING TO PATIENTS WHO ARE [...] BE BASED ON THE PRIMARY CLINICAL RECORDS. [facility]. provides no warranty or guarantee of the accuracy or completeness of information in this document.
--- NOTE | 2025-04-16 21:10 | RAD_ITS ---
PROCEDURE: LUMBAR SPINE 2 OR 3 VIEWS 04/16/2025 REASON FOR EXAM: BACK PAIN TECHNIQUE: Procedure Code: RADSPLL Modality: DX Procedure: LUMBAR SPINE 2 OR 3 VIEWS COMPARISON: 03/17/2025. FINDINGS: No evidence of acute fracture or dislocation. Mild degenerative changes of the visualized spine. Vertebral body heights are maintained. Straightening of the normal lumbar lordosis. RAD/Lumbar Spine 2 or 3 Views IMPRESSION: Mild spondylosis. Reading Location: [facility]
[2025-04-16 22:21] VITALS: BP 154/90; PULSE 86; RESP 18; O2SAT 93; BMI 30.4
[2025-04-16 23:05] VITALS: BP 149/80; PULSE 68; RESP 16; TEMP 36.6; O2SAT 99
--- NOTE | 2025-04-17 01:16 | ED.VIS.BACK ---
HPI History of Present Illness Chief Complaint: Back Narrative Narrative: Patient is a 49-year-old female presenting to the emergency department for left-sided back pain radiating down her left leg. Patient has a past medical history of fibromyalgia on baclofen, degenerative disc disease, lumbar back pain, obesity, migraines. She states she had some left sided lower back pain today however it significantly worsened when she bent over at the side of her bed. She did not take anything prior to arrival for pain. Denies fever, chills, falls, trauma to her back. Denies numbness or weakness in her legs. Denies any red flag back pain signs including saddle anesthesia, bowel or bladder incontinence or retention, immunocompromised status, fevers, recent weight loss, diabetes, IV drug use. She states this feels like her prior back pain. [facility] Medical History Psoriasis Psoriasis Fibromyalgia Migraines Kidney stones Hypokalemia Bipolar 1 disorder History of venous thromboembolism Home Medications ?Medication ?Instructions ?Recorded ?Last Taken ?Type baclofen 10 mg tablet 10 mg PO TID BACK PAIN 04/27/19 02/01/23 History sumatriptan succinate 100 mg tablet 100 mg PO .X1 PRN 04/26/20 01/31/23 History acetaminophen 325 mg tablet (Aphen) 650 mg PO Q4H PRN pain 02/01/23 02/01/23 History fremanezumab-vfrm 225 mg/1.5 mL mg subcut 09/11/24 Unknown History subcutaneous syringe (Ajovy Syringe) ondansetron 4 mg disintegrating 4 mg PO Q8H PRN PRN Nausea #10 tabs 09/11/24 Unknown Rx tablet rimegepant 75 mg disintegrating PO 09/11/24 Unknown History tablet (Nurtec ODT) hydrocodone-acetaminophen 5-325mg 1 tab PO Q6H PRN PRN Pain 3 days 03/17/25 Unknown Rx 5mg-325mg #10 TABLETS hydrocodone-acetaminophen 5-325mg 1 tab PO Q6H PRN PRN Pain 3 days 04/16/25 Unknown Rx 5mg-325mg #10 TABLETS pregabalin 50 mg capsule 50 mg PO BID 04/16/25 Unknown History topiramate 25 mg tablet 25 mg PO QHS 04/16/25 Unknown History Allergy/AdvReac Type Severity Reaction Status Date / Time Cephalosporins Allergy Severe Anaphylaxis Verified 04/16/25 20:25 adhesive tape Allergy Swelling Verified 04/16/25 20:25 Penicillins Allergy Anaphylaxis Verified 04/16/25 20:25 bupropion (From Wellbutrin) AdvReac Other Verified 04/16/25 20:25 diphenhydramine HCl (From AdvReac IV route Verified 04/16/25 20:25 Benadryl) causes panic attack. can take po Surgical History H/O: hysterectomy Social History Smoking Status: Current every day smoker tobacco type: cigarettes substance use type: does not use ROS ROS ED ROS Narrative see HPI EXAM Physical Exam Narrative Exam Narrative: Vital signs: Reviewed General: Alert and orientedx3. Acute distress due to pain. Nontoxic. HEENT: Head is normocephalic and atraumatic, sinuses nontender, pupils equal round and reactive. Nares are patent. Oropharynx and throat exams normal. Neck: Supple without lymphadenopathy nontender Cardiovascular: Regular rate and rhythm, no murmurs. No rubs or gallops. Normal S1 and S2 Respiratory: Clear to auscultation bilaterally. No wheezes, rales, rhonchi Abdominal: Soft and nontender. Normal bowel sounds. No guarding or rebound. Nonsurgical abdomen Back: No midline cervical, thoracic or lumbar spinal tenderness to palpation. There is left SI joint tenderness to palpation. Pain with straight leg test left lower extremity. Extremities: No tenderness. No bruising. Normal range of motion. 5 out of 5 strength in bilateral lower extremities. Normal sensation. Skin: No rash or redness. The rest of the physical exam is unremarkable Const Vital Signs: 04/16/25 20:25 04/16/25 22:21 04/16/25 23:05 Temperature 96 F L 97.8 F Temperature Source Temporal Pulse Rate 147 H 86 68 Respiratory Rate 24 H 18 16 Blood Pressure 194/159 H 154/90 H 149/80 H Blood Pressure Mean 170 111 103 Pulse Ox 96 93 99 Oxygen Delivery Method Room Air Room Air MDM MDM MDM Narrative Medical decision making narrative: Patient is a 49-year-old female presenting to the emergency department for left-sided back pain radiating down the back of her leg. Patient was seen and examined. Vitals are stable, she is tachycardic at 147 and hypertensive at 194/159, respirations of 24, I think this is due to pain. Patient is very distressed on arrival due to pain, rolling around in bed, crying. Patient was given IM morphine for pain control. Patient has no red flag back pain signs which can be seen in HPI. She had no falls or trauma to her back, do not think the patient needs any MRI imaging of her spinal cord. Do not suspect cauda equina. She has no fevers or IV drug use, no midline tenderness on exam I do not think patient needs CT imaging with IV contrast to rule out epidural abscess any other infectious cause. Lumbar spinal x-ray was obtained and shows no acute abnormalities. Patient has pain on palpation of her SI joint and muscles, I think it is likely musculoskeletal in nature. Sciatica may be a possibility however less likely given her pain on palpation of the SI joint. Likely musculoskeletal in nature. Patient's vitals were retaken after her pain was well-controlled. BP at 149/80, pulse of 68, afebrile saturating 99% on room air. Respirations 16. Patient was given additional analgesic while here with Dilaudid and she has had much improvement in her pain. She is able to ambulate. I updated the patient and daughter at bedside on the negative x-ray imaging. I will prescribe narcotics for home due to her initial distress on exam. Recommended NSAIDs before taking this at home. Recommended Lidoderm patches as well. She states that she was supposed to follow-up with pain management due to her fibromyalgia and chronic back pain and states that she is now going to given this exacerbation of back pain from just a month ago. Clinical impression Musculoskeletal back pain History & Record Review Discussion w/independent historian: Patient and Family Radiography Diagnostic Testing: Clinical Impression(s) from Imaging Studies Lumbar Spine X-Ray 04/16/25 21:10 IMPRESSION: Mild spondylosis. Reading [facility] Discharge Plan Triage Chief Complaint: Back ED Provider: Loreta Pantoja Dx/Rx/DC Orders Clinical Impression: Lumbar back pain Instructions: ED Back Spasm, No Trauma, ED Back Sprain/Strain Prescriptions: New hydrocodone-acetaminophen 5-325 mg tablet 1 tab PO Q6H PRN PRN (Reason: Pain) 3 Days Qty: 10 0RF No Action baclofen 10 MG tablet 10 mg PO TID Patient Comments: Take 1 tablet by mouth three times daily. sumatriptan succinate 100 MG tablet 100 mg PO .X1 PRN acetaminophen [Aphen] 325 mg tablet 650 mg PO Q4H PRN (Reason: pain) Ajovy Syringe 225 mg/1.5 mL syringe SUBCUT Patient Comments: [NO ORIGINAL SIG] Nurtec ODT 75 mg tablet,disintegrating PO ondansetron 4 mg tablet,disintegrating 4 mg PO Q8H PRN PRN (Reason: Nausea) Qty: 10 0RF hydrocodone-acetaminophen 5-325 mg tablet 1 tab PO Q6H PRN PRN (Reason: Pain) 3 Days Qty: 10 0RF topiramate 25 mg tablet 25 mg PO QHS pregabalin 50 mg capsule 50 mg PO BID Primary Care Provider: Dionicio Armijo Referrals: Dionicio Armijo MD [Primary Care Provider, Medical] - As soon as possible Activity Restrictions/Additional Instructions: Take NSAIDs which include Aleve, Advil, ibuprofen or Motrin first for pain control. If this is not working you can take the Percocet. Be cautious this can cause stomach upset, constipation, nausea, lightheadedness or dizziness. Do not drive while taking this medication. Call your primary care doctor to discuss pain management as planned. Your evaluation in the Emergency Department did not reveal any acute reason for admission. However, I want to emphasize that you may be early in the course of a disease process or illness even if it is not present. For this reason you should follow-up within 24 hours for reevaluation with either your primary care physician or if necessary back here in the Emergency Department. You should return to the Emergency Department immediately if your symptoms worsen or new symptoms develop. Print Language: Yakut Disposition Disposition: Home, Self Care Discharge Date/Time: 04/16/25 23:19
== END 2025-04-16 23:19 | disposition home or self-care (01) ==
PROVIDERS: Emergency Provider Student in an Organized Health Care Education/Training Program; PCP Family Medicine; Visit Provider Student in an Organized Health Care Education/Training Program
DX: M54.50 Low back pain, unspecified (principal); M79.7 Fibromyalgia; G89.29 Other chronic pain; F17.210 Nicotine dependence, cigarettes, uncomplicated; Z79.899 Other long term (current) drug therapy
CPT/HCPCS: 72100; 96372; 96374; 99283; A4216

== ENCOUNTER 2025-04-18 04:10 | Emergency (ER) | payer BC, SELFPAY ==
[2025-04-18 04:12] VITALS: BP 166/67; PULSE 113; RESP 20; TEMP 36.9; O2SAT 100; BMI 29.0
--- NOTE | 2025-04-18 04:33 | CT_ITS ---
PROCEDURE: CTA ABD W/RUNOFF W/WO CONTRAST 04/18/2025 REASON FOR EXAM: ? ARTERIAL OCCLUSION OF LEFT LOWER EXTREMITY TECHNIQUE: Procedure Code: [id number] Modality: CT Procedure: CTA ABD W/RUNOFF W/WO CONTRAST Multiplanar Sagittal and Coronal images were obtained. CONTRAST: Isovue 370 VOLUME: 100 mL One or more dose reduction techniques were used (e.g., Automated exposure control, adjustment of the mA and/or kV according to patient size, use of iterative reconstruction technique). RADIATION DOSE SUMMARY: CTDlvol: 17.25 mGy DLP: 1443 mGycm COMPARISON: CT scan on 06/14/2023. FINDINGS: Distended gallbladder without CT evidence of acute cholecystitis. Mildly dilated extrahepatic biliary tree. Bilateral nonobstructing renal stones with the largest measuring 4 mm. Mild calcified atheromatous plaques of the aorta. Occluded left dorsalis pedis artery. No significant stenosis of bilateral common iliac, external iliac, internal iliac, common femoral, superficial femoral, deep femoral, popliteal, posterior tibial, anterior tibial, peroneal and right dorsalis pedis arteries. The visualized lung bases are unremarkable. Normal liver. Normal spleen. Normal pancreas. Normal bilateral adrenal glands. Normal size of the right kidney. There is no right renal mass. There is no right hydronephrosis. Normal visualized right ureter. Normal size of the left kidney. There is no left renal mass. There is no left hydronephrosis. Normal visualized left ureter. Normal visualized stomach. Normal small intestine. Normal colon. The appendix is visualized and appears normal. There is no demonstrated peritoneal fluid. Normal inferior vena cava. Normal retroperitoneum. Normal urinary bladder. There is no pelvic mass lesion or lymphadenopathy. Prior hysterectomy. There is no pelvic fluid. Normal abdominal wall. Normal osseous structures. CT/CTA Abd w/Runoff W/WO Contrast IMPRESSION: Distended gallbladder without CT evidence of acute cholecystitis. Mildly dilated extrahepatic biliary tree. Bilateral nonobstructing renal stones with the largest measuring 4 mm. Mild calcified atheromatous plaques of the aorta. Occluded left dorsalis pedis artery. No significant stenosis of bilateral common iliac, external iliac, internal breana ac, common femoral, superficial femoral, deep femoral, popliteal, posterior tibial, anterior tibial, peroneal and right dorsa lis pedis arteries. Reading [facility]
--- OUTSIDE RECORDS SUMMARY | 2025-04-18 04:46 | XMS RPT_ITS | CCD ---
Author Organization [facility] Care Team Providers Care Butcher Scullion Name Role Phone Dionicio Brower MD Primary Care Provider NO, PHYSICIAN Primary Care Unavailable MILA CLOUD Attending Unavailable Dionicio Brower MD Primary Care Provider Dionicio Brower MD Primary Care Provider Keith SENIOR DIGITAL DESIGNER.Bruna HERNANDEZ Unavailable Suppan SENIOR DIGITAL DESIGNER.MEAT WASHER, Debbie A Unavailable Suppan SENIOR DIGITAL DESIGNER.MEAT WASHER, Debbie A Unavailable Suppan SENIOR DIGITAL DESIGNER.MEAT WASHER, Debbie A Unavailable [phone] Dionicio Brower Primary Care Unavailable Kun Newby [...] Primary Care Unavailable ALIX DOUGLAS Referring Unavailable INOCENTE, DIONICIO Brewster Primary Care Unavailable LAIX DOUGLAS Attending Unavailable DIONICIO BROWER Attending Unavailable INOCENTEDIONICIO Primary Care Unavailable INOCENTEDIONICIO Primary Care Unavailable [...] Acetaminophen / HYDROcodone Drug Allergy 11-17-19 [facility] Penicillins (antibiotic) (1 source) Penicillins Drug Allergy 04-14-20 Unknown [facility] Work Phone: (20 sources) acetaminophen / HYDROcodone; Translations: [HYDROCODONE-ACETA MINOPHEN] Drug Allergy 11-17-19 GI [facility] Repository (20 sources) Penicillins; Translations: [PENICILLINS] Propensity to adverse reactions to drug (disorder) 04-14-20 Unknown [facility] Repository (1 source) OTHER; Translations: [OTHER] Propensity to adverse reactions (disorder) 04-16-20 AOF [facility] Repository (20 sources) vidaylin vitamins [Other] Propensity to adverse reactions 04-16-20 [facility] Work Phone: (3 sources) Cephalosporins (Antibiotic); Translations: [CEPHALOSPORINS] Propensity to adverse reactions to drug (disorder) 07-26-19 Anaphylaxis [facility] Repository (2 sources) Adhesive Tape; Translations: [adhesive tape] Allergy to substance 06-14-19 Swelling [facility] (1 source) buPROPion Drug Allergy 06-14-19 Other [facility] (2 sources) diphenhydrAMINE; Translations: [diphenhydramine HCl] Drug Allergy 06-14-19 IV route causes panic attack. can take po [facility] (1 source) buPROPion Drug Allergy 03-17-20 [facility] Repository Medications Current Medications Medication Drug [...] on above: Take 2 tablets by mo [facility] once daily for 1 day, THEN [...] on above: Take 1 capsule by mo [facility] three times daily for 90 days. [...] Comment on above: Take [address] [facility] every 8 hours as needed for [...] February 01, 2023 1:25pm polyethylene glycol [id number] [id number] mg / potassium chloride 2970 mg / sodium bicarbonate 6740 mg / sodium chloride 5860 mg / sodium sulfate 44189 mg powder for oral solution (2 sources) [...] 0.4 mg oral capsule (1 source) alpha-Adrenergic Christiano Start: 024 take 1 capsule by mouth [...] a day Take 3 tablets by mo [facility] once daily. Pt taking 75 mg [...] Test Name Value Interpretation Reference Range Facility [facility] 03-19-2025 [facility] NABOR HERRERA ([id number]) 1975 F Date Time Provider Department 03/19/25 1:00 PM DIONICIO BROWER [facility] During your visit today, we recorded the [...] difficulty standing. - Recent ER visit at [facility] on 03/17; diagnosed with a myofascial sprain [...] MEDICAL HISTORY Diagnosis Date Bipolar 1 disorder ([facility]) [facility] DVT (deep venous thrombosis) ([facility]) 2006 Marijuana use Migraine with aura PE (pulmonary embolism) 2006 PTSD (post-traumatic stress disorder) sees psych [facility] Schizoaffective disorder ([facility]) [facility] psych [facility] Urinary tract infection, site not specified 2003 [...] spine ra (more content not included)... Normal [facility] Emergency Department Summary on 03-17-2025 Emergency Department [facility] [address] [place] [address] Emergency Department Summary 03/17/25 MR#: [id number] Acct: [id number] Name: NABOR HERRERA Rep #: [id number] : 1975 49 From: Kun Newby MD [...] and Tylenol today. - Allergic to penicillin. [facility] Medical History Psoriasis Psoriasis Fibromyalgia Migraines Kidney [...] Rt Ankle (more content not included)... Normal [facility] Lumbar Spine 2 or 3 Viewson 03-17-2025 Lumbar Spine 2 or 3 Views [facility] Imaging Services [address] [place], [place] [address] Lumbar Spine 2 or 3 Views MR#: [id number] Acct: [id number] Name: NABOR HERRERA Rep #: [id number] : 1975 F 49 From: Malik Clements MD PCP: Dr. Dionicio Brower MD Status: REG ER Study: Lumbar Spine 2 or 3 Views Date of Exam: Exam# [id number] Ordering Dr: Kun Newby MD PROCEDURE: LUMBAR SPINE 2 OR 3 VIEWS 03/17/2025 REASON FOR EXAM: PAIN/INJURY TECHNIQUE: Procedure Code: SHAQ Modality: DX Procedure: LUMBAR SPINE 2 OR 3 VIEWS COMPARISON: None. FINDINGS: Vertebrae: No acute bony abnormalities. Discs: Unremarkable. Alignment: Normal alignment. RAD/Lumbar Spine 2 or 3 Views IMPRESSION: No acute bony abnormalities. No significant disc disease on x-ray. Reading Location: [facility] CC: Dr. Kun Newby MD; Dr. Dionicio Brower MD Director Cloud Transformation: Signed Normal [facility] CNOVon 02-13-2025 CNOV Office Visit (FAMPWS ) NABOR HERRERA ([id number]) 1975 F Date Time Provider Department 02/13/25 [...] (HCC) s (more content not included)... Normal [facility] XR LUMBAR 3V AP/LAT/L5-S1on 02-13-2025 XR LUMBAR [...] spine are presented. FINDINGS: There are five hkv-jvy-ltrvvre lumbar vertebrae. No fracture or subluxations are noted. Straightening of the lumbar spine curvature is noted. The disc spaces are well preserved. There is mild osteophyte formation. IMPRESSION: Lumbar spine mild degenerative changes. Director Cloud Transformation: JAZMIN Transcribe Date/Time: Feb 14 2025 4:37P Dictated by : ANGELA CANDELARIO MD This examination was interpreted and the report reviewed and electronically signed by: ANGELA CANDELARIO MD on Feb 14 2025 4:38PM EST [id number] Normal [facility] CNOVon 02-05-2025 CNOV Office Visit ([facility] ) NABOR HERRERA ([id number]) 1975 F Date Time Provider Department 02/05/25 [...] MEDICAL HISTORY Diagnosis Date Bipolar 1 disorder ([facility]) [facility] DVT (deep venous thrombosis) ([facility]) 2006 Marijuana use Migraine with aura PE (pulmonary embolism) 2006 PTSD (post-traumatic stress disorder) sees psych [facility] Schizoaffective disorder ([facility]) sees psych at [facility] Urinary tract infection, site not specified 2003 [...] SpO2 99% (more content not included)... Normal [facility] 01-29-2025 [facility] Telephone (DAISYWST) NABOR HERRERA ([id number]) 1975 F Date Time Provider Department 01/29/25 [...] Encounter Status:Closed by ALIX ANAYA on 01/29/25 [facility] CNCOon 12-20-2024 CNCO Letter Text [facility] CNPNon 12-07-2024 CNPN Telephone (NEMOWS) NABOR HERRERA ([id number]) 1975 F Date Time Provider Department 12/07/24 ALIX DOUGLAS During your visit today, we recorded the following information about you: Candice Shipman LPN 12/07/2024 12:52 PM Signed Submitted PA for both Aimovig 70 mg/ml auto injector and Jhdlepz108 mg via EPIC. Will watch for determinations. [...] Status:Closed by CANDICE SHIPMAN on 12/20/24 Normal [facility] CNOVon 12-06-2024 CNOV Office Visit (NEMOWS ) NABOR HERRERA ([id number]) 1975 F Date Time Provider Department 12/06/24 [...] Alix Douglas PA-C 12/06/2024 3:32 PM Signed [facility] for General Neurology Follow up CC: Headache [...] nurtec Medicatio (more content not included)... Normal [facility] Emergency Department Summary on 09-11-2024 Emergency Department Summary [facility] [address] [place] [address] Emergency Department Summary 09/11/24 MR#: [id number] Acct: [id number] Name: NABOR HERRERA Rep #: [id number] : 1975 49 From: Orion Webber PCP: Dr. Dionicio Brower MD Status:DEP ER [...] presentation. She (more content not included)... Normal [facility] CNOVon 08-16-2024 OV Office Visit (NEMOWS ) NABOR HERRERA ([id number]) 1975 F Date Time Provider Department 08/16/24 2:30 PM ALIX DOUGLAS During your visit today, we recorded the following information about you: Pulse Blood pressure Weight 77/minute 136/78 94.4 kg Alix Douglas PA-C 08/16/2024 3:26 PM Signed Neurology Outpatient Clinic Date: August 16, 2024 Patient Name: Naborjada Herrera Referring physician: Dionicio Saez [facility] [address] Consult requested for headache by Dr. Brower. Recommendations will be communicated via shared medical record or US mail. Primary physician: [place] [address] Reason for Evaluation: Headaches Subjective HPI Nabor [...] heat into (more content not included)... Normal [facility] CNOVon 07-19-2024 CNOV Office Visit (FAMPWS ) NABOR HERRERA ([id number]) 1975 F Date Time Provider Department 07/19/24 [...] MEDICAL HISTORY Diagnosis Date Bipolar 1 disorder ([facility]) [facility] DVT (deep venous thrombosis) ([facility]) 2006 Marijuana use Migraine with aura PE (pulmonary embolism) 2006 PTSD (post-traumatic stress disorder) sees psych [facility] Schizoaffective disorder ([facility]) sees psych at [facility] Urinary tract infection, site not specified 2003 [...] no ac (more content not included)... [facility] ([id number]) 1975 F Date Time Provider Department 06/09/24 CORETTA ORTEGA [facility] During your visit today, we recorded the following information about you: Corey Shah 06/09/2024 1:49 PM Signed 07-26-2024 Colon EGD [place] Provider went over all prep instructions and [...] Date Reviewed: 06/08/2024 Reviewed by: Vani Mccann APRN.MEAT WASHER - Fully Assessed Reason for Visit: 07-26-2024 [...] Status:Closed by CALLIE DOOLEY on 07/20/24 Normal [facility] CNOVon 06-08-2024 CN Office Visit (GENSWS ) NABOR HERRERA ([id number]) 1975 F Date Time Provider Department 06/08/24 2:00 PM VANI MCCANN GENSWS During your visit today, we recorded the following information about you: Pulse Blood pressure Weight 80/minute 105/72 91.2 kg Vani Mccann APRN.CNP 06/08/2024 2:39 PM Signed HISTORY AND PHYSICAL Nabor Herrera : 1975 REFERRING PHYSICIAN: Dionicio Brower [facility] [address] CHIEF COMPLAINT: Patient presents with: Colon Consult [...] MEDICAL HISTORY Diagnosis Date Bipolar 1 disorder ([facility]) [facility] psych [facility] DVT (deep venous thrombosis) ([facility]) 2006 Marijuana use Migraine with aura PE (pulmonary embolism) 2006 PTSD (post-traumatic stress disorder) sees psych at [facility] Schizoaffective disorder ([facility]) sees psych at [facility] Urinary tract infection, site not specified 2003 [...] denies u (more content not included)... Normal [facility]Non [facility]02-2024 [facility] ([id number]) 1975 F Date Time Provider Department 06/02/24 DIONICIO BROWER [facility] During your visit today, we recorded the [...] Cologuard test [R19.5] Order(s):CONSULT TO GENERAL SURGERY [9044] Order #: [id number]: 1 FUTURE Prescriptions as of 06/06/2024 - [...] Encounter Status:Closed by DIONICIO BROWER on 06/06/24 [facility] CNOVon 05-24-2024 CNOV Office Visit (FAMPWS ) NABOR HERRERA ([id number]) 1975 F Date Time Provider Department 05/24/24 4:20 PM [facility] During your visit today, we recorded [...] MEDICAL HISTORY Diagnosis Date Bipolar 1 disorder ([facility]) [facility] DVT (deep venous thrombosis) ([facility]) 2006 Marijuana use Migraine with aura PE (pulmonary embolism) 2006 PTSD (post-traumatic stress disorder) sees psych [facility] Schizoaffective disorder ([facility]) sees psych at [facility] Urinary tract infection, site not specified 2003 [...] (primary diagno (more content not included)... Normal [facility] CNOVon 04-11-2024 CNOV Office Visit (FAMPWS ) NABOR HERRERA ([id number]) 1975 F Date Time Provider Department 04/11/24 2:00 PM BRUNA PARKER During your visit today, we recorded the following information about you: Pulse Respiration Blood pressure 104/minute 16/minute 126/92 Bruna Parker APRN.MEAT WASHER 04/12/2024 5:14 PM Signed This is a [...] MEDICAL HISTORY Diagnosis Date Bipolar 1 disorder ([facility]) sees psych at [facility] DVT (deep venous thrombosis) ([facility]) 2006 Marijuana use Migraine with aura PE (pulmonary embolism) 2006 PTSD (post-traumatic stress disorder) sees psych at [facility] Schizoaffective disorder ([facility]) sees psych at [facility] Urinary tract infection, site not specified 2003 [...] Start n (more content not included)... Normal [facility] 04-09-2024 [facility] Telephone (UCWSTR) NABOR HERRERA ([id number]) 1975 F Date Time Provider Department 04/09/24 [facility] During your visit today, we recorded the following information about you: Callie Ordonez APRN.[facility] 04/09/2024 8:00 AM Signed Please advise patient esophoria COVID/flu/RSV test was negative. Follow instructions given by provider at visit, f/u with PCP if symptoms persist or worsen. Callie Ordonez APRN.[facility] Duran Mann MA 04/09/2024 8:29 AM [...] Encounter Status:Closed by DURAN MANN on 04/09/24 [facility] CNOVon 04-08-2024 CNOV Office Visit (UCWSTR ) NABOR HERRERA ([id number]) 1975 F Date Time Provider Department 04/08/24 8:45 AM [facility] During your visit today, we recorded the following information about you: Temperature Pulse Respiration Blood pressure 99 degrees 110/minute 20/minute 174/108 Weight 91.7 kg Dashawn Madden MA 04/08/2024 9:14 AM Signed Ipratropium [place] AND Albuterol Sulfate solution aerosol treatment given per provider's orders. Prior to treatment O2 sat is 96%. Treatment completed. Tolerated well. ISABELA Gonzales Cara R, PA-C 04/08/2024 9:34 AM Signed This note was created using [employer]. Subjective Nabor Herrera is a 48 year [...] MEDICAL HISTORY Diagnosis Date Bipolar 1 disorder ([facility]) [facility] DVT (deep venous thrombosis) ([facility]) 2006 Marijuana use Migraine with aura PE (pulmonary embolism) 2006 PTSD (post-traumatic stress disorder) sees psych [facility] Schizoaffective disorder ([facility]) [facility] Urinary tract [...] time. As (more content not included)... Normal [facility] COVID AND INFLUENZA A/B AND RSV PCR, ROUTINEon 04-08-2024 SARS-CoV-2 (COVID-19) RNA JOHANNE+probe Ql (Unsp spec) SARS-COV-2 (AGENT OF COVID-19) RNA: Not detected INFLUENZA A RNA: Not detected INFLUENZA B RNA: Not detected RESPIRATORY SYNCYTIAL VIRUS (RSV) RNA: Not detected Normal [facility] Comment on above: Performed By: #### C VFLRS ####[facility] LABCLIA [id number] [place] [address] [place] XR CHEST 2V [...] secondary to subsegmental atelectasis. No confluent consolidation. Director Cloud Transformation: JAZMIN Transcribe Date/Time: Apr 08 2024 9:03A Dictated by : JAYME DANIELS DO This examination was interpreted and the report reviewed and electronically signed by: JAYME DANIELS DO on Apr 08 2024 9:06AM EST [id number] Normal [facility] XR Chest PA and Lateralon IMPRESSION: Increased lung markings in the RIGHT infrahilar region probably secondary to subsegmental atelectasis. No confluent consolidation. Director Cloud Transformation: JAZMIN Transcribe Date/Time: Apr 08 2024 9:03A [...] secondary to subsegmental atelectasis. No confluent consolidation. Director Cloud Transformation: PSCB Transcribe Date/Time: Apr 08 2024 9:03A Dictated by : JAYME DANIELS DO This examination was interpreted and the report reviewed and electronically signed by: JAYME DANIELS DO on Apr 08 2024 9:06AM EST [facility] Radiology Study observation (narrative) [facility] XR Chest PA and LateralOrder ed By: Ccf Provider on 04-08-2024 [facility] CNOVon 03-31-2024 CNOV Office Visit (FAMPWS ) NABOR HERRERA ([id number]) 1975 F Date Time Provider Department 03/31/24 [...] MEDICAL HISTORY Diagnosis Date Bipolar 1 disorder ([facility]) sees psych at [facility] DVT (deep venous thrombosis) ([facility]) 2006 Marijuana use Migraine with aura PE [...] more than (more content not included)... Normal [facility] CBC W Auto Differential pane l (Bld)on 08-12-2023 Basophils (Bld) [#/Vol] 0.03 10*3/uL <0.11 k/uL [facility] Basophils/100 WBC (Bld) 0.4 % [facility] Differential cell count method Nom (Bld) Auto [facility] Eosinophils (Bld) [#/Vol] <0.46 k/uL [facility] Eosinophils/100 WBC (Bld) 0.3 % [facility] Erythrocyte distribution width (RBC) [Ratio] 13.2 % 11.5 - 15.0 % [facility] Hematocrit (Bld) [Volume fraction] 42.5 % 36.0 - 46.0 % [facility] Hemoglobin (Bld) [Mass/Vol] 14.5 g/dL 11.5 - 15.5 g/dL [facility] Immature granulocytes (Bld) [#/Vol] <0.10 k/uL [facility] Immature granulocytes/100 WBC (Bld) 0.3 % [facility] Lymphocytes (Bld) [#/Vol] 2.29 10*3/uL 1.00 - 4.00 k/uL [facility] Lymphocytes/100 WBC (Bld) 29.9 % [facility] MCH (RBC) [Entitic mass] 32.5 pg 26.0 - 34.0 pg [facility] MCHC (RBC) [Mass/Vol] 34.1 g/dL 30.5 - 36.0 g/dL [facility] MCV (RBC) [Entitic vol] 95.3 fL 80.0 - 100.0 fL [facility] Monocytes (Bld) [#/Vol] 0.58 10*3/uL <0.87 k/uL [facility] Monocytes/100 WBC (Bld) 7.6 % [facility] Neutrophils (Bld) [#/Vol] 4.73 10*3/uL 1.45 - 7.50 k/uL [facility] Neutrophils/100 WBC (Bld) 61.5 % [facility] Nucleated RBC (Bld) [#/Vol] <0.01 k/uL [facility] Nucleated RBC/100 WBC (Bld) [Ratio] 0.0 /100 WBC [facility] Platelet mean volume (Bld) [Entitic vol] 10.9 fL 9.0 - 12.7 fL [facility] Platelets (Bld) [#/Vol] 225 10*3/uL 150 - 400 k/uL [facility] RBC (Bld) [#/Vol] 4.46 10*6/uL 3.90 - 5.2 0 m/uL [facility] WBC (Bld) [#/Vol] 7.67 10*3/uL 3.70 - 11.00 k/uL [facility] XR Chest PA and Lateralon IMPRESSION: No acute radiographic abnormality. Director Cloud Transformation: PSCB Transcribe Date/Time: Aug 12 2023 1:51P Dictated by : EULALIA BECKWITH MD This examination was interpreted and the report reviewed and electronically signed by: EULALIA BECKWITH MD on Aug 12 2023 1:52PM [facility] DIVISION OF RADIOLOGY * * *Final Report* [...] soft tissues: Unremarkable. DIVISION OF RADIOLOGY Provider, [facility] - 08/12/2023 * * *Final Report* * [...] Unremarkable. IMPRESSION IMPRESSION: No acute radiographic abnormality. Director Cloud Transformation: JAZMIN Transcribe Date/Time: Aug 12 2023 1:51P Dictated by : EULALIA BECKWITH MD This examination was interpreted and the report reviewed and electronically signed by: EULALIA BECKWITH MD on Aug 12 2023 1:52PM EST [facility] XR Chest PA and LateralOrder ed By: Ccf Provider on 08-12-2023 [facility] XR Chest PA and Lateralon Radiology Study observation (narrative) [facility] Absolute lymphocyte countOrd ered By: Carlos Willams on 06-14-2023 Lymphocytes Auto (Unsp spec) [#/Vol] 2.32 10*3/uL 0.83-4.51 [facility] Automated lymphocyte count a s percentage of total leukocytesOrdered By: Carlos Willams on 06-14-2023 Lymphocytes/100 WBC Auto (Unsp spec) 36.7 % 19-41 [facility] Basophil percentageOrdered B y: Carlos Willams on 06-14-2023 Basophil percentage 10-25 SEEN /hpf 0-5 [facility] Basophils/100 WBC (Bld) 0.5 % 0-1 [facility] Chloride [Moles/Vol] 106 mmol/L 98-107 [facility] Eosinophils/100 WBC (Bld) 1.3 % 0-5 [facility] Glucose [Mass/Vol] 109 mg/dL 74-106 [facility] Comment on above: Fasting Glucose resu lt from 100 to 125 mg/dL suggests IMPAIRED HOMEOSTASIS per A.D.A. criteria. Hemoglobin (Bld) [Mass/Vol] 13.1 g/dL 12.0-15.0 [facility] Monocytes/100 WBC (Bld) 7.4 % 0-10 [facility] Neutrophils (Bld) [#/Vol] 3.4 10*3/uL 2.0-7.7 [facility] Neutrophils/100 WBC (Bld) 53.9 % 47-70 [facility] Potassium [Moles/Vol] 3.6 mmol/L 3.5-5.1 [facility] Sodium [Moles/Vol] 138 mmol/L 136-145 [facility] WBC (Bld) [#/Vol] 6.3 10*3/uL 4.4-11.0 [facility] Bilirubin Test strip Ql (U)O rdered By: Carlos Willams on 06-14-2023 Bilirubin Ql (U) Negative Negative [facility] Determination of erythrocyte mean corpuscular volume (MCV)Ordered By: Carlos Willams on 06-14-2023 MCV (RBC) [Entitic vol] 94.6 fL 81-99 [facility] Erythrocyte distribution wid th ratioOrdered By: Carlos Willams on 06-14-2023 Erythrocyte distribution width (RBC) [Ratio] 13.2 % 11.6-14.6 [facility] Erythrocyte distribution wid th standard deviationOrdered By: Carlos Willams on 06-14-2023 Erythrocyte distribution width (RBC) [Entitic vol] 46.1 fL 35.1-43.9 [facility] Hematocrit Auto (Bld) [Volum e fraction]Ordered By: Carlos Willams on 06-14-2023 Hematocrit (Bld) [Volume fraction] 38.5 % 37-47 [facility] Immature granulocytes/100 WB C Auto (Bld)Ordered By: Carlos Willams on 06-14-2023 Immature granulocytes/100 WBC (Bld) 0.200 % 0.0-0.9 [facility] Comment on above: IG% - Immature Granu locytes (promyelocytes, myelocytes and metamyelocytes) > 1% indicates that a LEFT SHIFT is Present. Ketones Test strip Ql (U)Ord ered By: Carlos Willams on 06-14-2023 Ketones Ql (U) Negative Negative [facility] Laboratory - Chemistry and C hemistry - challengeOrdered By: Carlos Willams on 06-14-2023 CO2 [Moles/Vol] 25.0 mmol/L 21.0-32.0 [facility] Urea nitrogen/Creatinine [Mass ratio] 19.5 mg/mg 10-20 [facility] Laboratory - Hematology and Cell countsOrdered By: Carlos Willams on 06-14-2023 MCH (RBC) [Entitic mass] 32.2 pg 27.0-32.0 [facility] MCHC (RBC) [Mass/Vol] 34.0 g/dL 32-36 [facility] Nucleated RBC/100 WBC (Bld) [Ratio] 0 % 0-5 [facility] Platelets (Bld) [#/Vol] 247 10*3/uL 150-450 [facility] Mucus LM Ql (Urine sed)Order ed By: Carlos Willams on 06-14-2023 Mucus Ql (Urine sed) 0 SEEN /hpf [facility] Nitrite Test strip Ql (U)Ord ered By: Carlos Willams on 06-14-2023 Nitrite Ql (U) Negative Negative [facility] No Panel InformationOrdered By: Carlos Willams on 06-14-2023 Urine RBC 25-50 SEEN /hpf 0-5 [facility] Estimated Creatinine Clearance Calc 112.69 ml/min [facility] Estimated GFR (MDRD) Amer 104 mL/min >60 [facility] Comment on above: GFR Calc Estimated GFR (MDRD) Non-Af Amer 86 mL/min >60 [facility] Comment on above: Non- GFR Calc Platelet mean volume Evaristo-Ec ker (Bld) [Entitic vol]Ordered By: Carlos Willams on 06-14-2023 Platelet mean volume (Bld) [Entitic vol] 10.4 fL 6.2-12.0 [facility] Protein Test strip Ql (U)Ord ered By: Carlos iWllams on 06-14-2023 Protein Ql (U) 30 mg/dl Negative [facility] RBC Auto (Bld) [#/Vol]Ordere d By: Carlos Willams on 06-14-2023 RBC (Bld) [#/Vol] 4.07 10*6/uL 4.2-5.4 [facility] Serum or plasma calcium cynthia urement (mass/volume)Ordered By: Carlos Willams on 06-14-2023 Calcium [Mass/Vol] 9.1 mg/dL 8.5-10.1 [facility] Serum or plasma choriogonado tropin detectionOrdered By: Carlos Willams on 06-14-2023 HCG ( test) Ql Negative [facility] Comment on above: TEST is *P OSITIVE*CRITICAL VALUE VERIFIED. CALLED TO [employer]06/14/23 1122 Kathleen Oscar.RESULTS READ BACK BY SAME . Serum or plasma creatinine m easurement (mass/volume)Ordered By: Carlos Willams on 06-14-2023 Creatinine [Mass/Vol] 0.77 mg/dL 0.55-1.02 [facility] Comment on above: The validity of the calculated GFR & GFRAA in patients over 70 years has not been determined. Clinical correlation is essential. Serum or plasma urea nitroge n measurement (mass/volume)Ordered By: Carlos Willams on 06-14-2023 Urea nitrogen [Mass/Vol] 15 mg/dL 7-18 [facility] Squamous epithelial cells de tection in urine sediment by light microscopyOrdered By: Carlos Willams on 06-14-2023 Epithelial cells.squamous LM Ql (Urine sed) 0-5 SEEN /hpf 5-10 [facility] Thin prep Papanicolaou smear with manual screeningOrdered By: Carlos Willams on 06-14-2023 Thin prep Papanicolaou smear with manual screening 7 5-15 [facility] Urine blood detectionOrdered By: Carlos Willams on 06-14-2023 RBC Ql (U) 250 /ul Negative [facility] Urine clarityOrdered By: Lisa Willams on 06-14-2023 Clarity (U) Sl. Cloudy Clear [facility] Urine color determinationOrd ered By: Carlos Willams on 06-14-2023 Color (U) Yellow Yellow [facility] Urine glucose detectionOrder ed By: Carlos Willams on 06-14-2023 Glucose Ql (U) Normal mg/dl Normal [facility] Urine leukocyte esterase det ection by dipstickOrdered By: Carlos Willams on 06-14-2023 Leukocyte esterase Test strip Ql (U) 100 /ul Negative [facility] Urine pHOrdered By: Carlos omalley on 06-14-2023 pH (U) 5.0 [pH] 5.0 - 8.0 [facility] Urine sediment bacteria coun t by microscopy (number/high power field)Ordered By: Carlos Willams on 06-14-2023 Bacteria LM.HPF (Urine sed) [#/Area] 1 /[HPF] None Seen [facility] Urine specific gravity measu rementOrdered By: Carlos Willams on 06-14-2023 Specific gravity (U) [Rel density] 1.025 1.002-1.030 [facility] Urine urobilinogen measureme ntOrdered By: Carlos Willams on 06-14-2023 Urobilinogen Ql (U) 1 mg/dl Normal [facility] [place] CHEST WO IVCONon 06-11-19 [facility] XR Wrist - right PA and Late ral and Obliqueon 05-26-2023 IMPRESSION: No radiographic evidence of acute osseous injury. Stable round 5 mm calcification adjacent to the ulnar styloid. Director [employer]: PSCB Transcribe Date/Time: May 26 2023 1:50P Dictated by : DEUCE JUDD MD This examination was interpreted and the report reviewed and electronically signed by: DEUCE JUDD MD on May 26 2023 2:20PM [facility] DIVISION OF RADIOLOGY * * *Final Report* [...] mm calcification adjacent to the ulnar styloid. Director Cloud Transformation: [facility] Transcribe Date/Time: May 26 2023 1:50P Dictated by : DEUCE JUDD MD This examination was interpreted and the report reviewed and electronically signed by: DEUCE JUDD MD on May 26 2023 2:20PM EST [facility] XR Wrist - right PA and Late ral and ObliqueOrdered By: Ccf Provider on 05-26-2023 [facility] XR Wrist - right PA and Late ral and Obliqueon 05-25-2023 Radiology Study observation (narrative) [facility] XR Foot - right AP and Later al and obliqueon 09-21-2022 IMPRESSION: Acute fifth proximal phalanx fracture. Director Cloud Transformation: [facility] Transcribe Date/Time: Sep 21 2022 10:11A Dictated by : DEUCE JUDD MD This examination was interpreted and the report reviewed and electronically signed by: DEUCE JUDD MD on Sep 21 2022 10:12AM [facility] DIVISION OF RADIOLOGY * * *Final Report* [...] IMPRESSION IMPRESSION: Acute fifth proximal phalanx fracture. Director [employer]: PSC[facility] Transcribe Date/Time: Sep 21 2022 10:11A Dictated by : DEUCE JUDD MD This examination was interpreted and the report reviewed and electronically signed by: DEUCE JUDD MD on Sep 21 2022 10:12AM EST [facility] Radiology Study observation (narrative) [facility] XR Foot - right AP and Later al and obliqueOrdered By: Ccf Provider on 09-21-[address] [facility] [address] PULMONARY ARTERIESon 07-08 CT PULMONARY [...] ID: [id number] Dictated by: XOCHITL ALVAREZ on [facility] Jul 25, 2022 11:09:32 AM EDT Transcribed by: XOCHITL ALVAREZ on [facility] Jul 25, 2022 11:09:32 AM EDT Finalized by: XOCHITL ALVAREZ on [facility] Jul 25, 2022 11:09:32 AM EDT [facility] Comment on above: Order Comment: Injur [...] ID: [id number] Dictated by: WOLF EDWARDS on [facility] Jul 25, 2022 9:29:16 AM EDT Transcribed by: WOLF EDWARDS on [facility] Jul 25, 2022 9:29:16 AM EDT Finalized by: WOLF EDWARDS on [facility] Jul 25, 2022 9:29:16 AM EDT [facility] Comment on above: Order Comment: Injur y/Trauma or Illness?:Illness/Other How long have you had these symptoms (acute/chronic)?:Acute Reason for exam?:cp History of cancer?:n Surgeries, chemotherapy, or radiation?:n Type of Exam?:Initial Additional signs and symptoms?:cough No Panel Informationon 03-31 IMPRESSION: 1. No radiographic evidence of acute osseous injury. 2. Corticated ossicle versus rounded soft tissue calcification adjacent to the distal ulna. Director Cloud Trans[employer]: JAZMIN Transcribe Date/Time: Mar 31 2022 3:21P Dictated by : DEUCE JUDD MD This examination was interpreted and the report reviewed and electronically signed by: DEUCE JUDD MD on Mar 31 2022 3:23PM [facility] DIVISION OF RADIOLOGY Radiology Study observation (narrative) [facility] No Panel InformationOrdered By: Ccf Provider on 03-31-2022 [facility] XR Hand - right PA and [...] Joint spaces preserved. DIVISION OF RADIOLOGY Provider, [facility] - 03/31/2022 * * *Final Report* * [...] tissue calcification adjacent to the distal ulna. Director Cloud Transformation: JAZMIN Transcribe Date/Time: Mar 31 2022 3:21P Dictated by : DEUCE JUDD MD This examination was interpreted and the report reviewed and electronically signed by: DEUCE JUDD MD on Mar 31 2022 3:23PM EST [facility] XR Wrist - right 4 Viewson [...] Joint spaces preserved. DIVISION OF RADIOLOGY Provider, [facility] - 03/31/2022 * * *Final Report* * [...] tissue calcification adjacent to the distal ulna. Director [employer] Trans[employer]: JAZMIN Transcribe Date/Time: Mar 31 2022 3:21P Dictated by : DEUCE JUDD MD This examination was interpreted and the report reviewed and electronically signed by: DEUCE JUDD MD on Mar 31 2022 3:23PM EST [facility] CT CHEST WO IVCONon 08-08-19 Radiology Result ACTIONABLE Abnormal [facility] DELLA SCREENINGon 08-07-2021 [facility] XR Cervical spine AP and Lat eral and obliqueon 07-24-2021 IMPRESSION: Cervical spine degenerative changes with multilevel disc space narrowing and bilateral neural foraminal narrowing. Director [employer]: JAZMIN Transcribe Date/Time: Jul 24 2021 3:07P Dictated by : ANGELA CANDELARIO MD This examination was interpreted and the report reviewed and electronically signed by: ANGELA CANDELARIO MD on Jul 24 2021 3:16PM [facility] DIVISION OF RADIOLOGY * * *Final Report* [...] tissues are normal. DIVISION OF RADIOLOGY Provider, [facility] - 07/24/2021 * * *Final Report* * [...] space narrowing and bilateral neural foraminal narrowing. Director Cloud Transformation: JAZMIN Transcribe Date/Time: Jul 24 2021 3:07P Dictated by : ANGELA CANDELARIO MD This examination was interpreted and the report reviewed and electronically signed by: ANGELA CANDELARIO MD on Jul 24 2021 3:16PM EST [facility] Radiology Study observation (narrative) [facility] XR Cervical spine AP and Lat eral and obliqueOrdered By: Ccf Provider on 07-24-2021 [facility] APTTon 12-13-2017 aPTT Coag time (Bld) 23.9 s Normal 23.0-32.4 [facility] Comment on above: Result Comment: Unfr actionated [...] laboratory APTT reagent in use throughout the [facility]. Performed By: #### C BCDIF, PT, PTT, CMP, MG1 ####[facility] [address] [place] [phone] CBC and Differentialon 12-13 Abs Baso 0.03 k/uL Normal <0.11 [facility] Comment on above: Performed By: #### C BCDIF, PT, PTT, CMP, MG1 ####[facility] [address] Abs [place] 0.56 k/uL Normal <0.87 [facility] Comment on above: Performed By: #### C BCDIF, PT, PTT, CMP, MG1 ####[facility] [address] [place] [phone] Abs Neut 5.37 k/uL Normal 1.45-7.50 [facility] Comment on above: Performed By: #### C BCDIF, PT, PTT, CMP, MG1 ####[facility] [address] [place] [address] Basophils/100 WBC Auto (Bld) 0.4 % Normal [facility] Comment on above: Performed By: #### C BCDIF, PT, PTT, CMP, MG1 ####[place] [address] Eosinophils Auto #/vol (Bld) 0.07 10*3/uL Normal <0.46 [facility] Comment on above: Performed By: #### C BCDIF, PT, PTT, CMP, MG1 ####[place] [address] Eosinophils/100 WBC Auto (Bld) 0.9 % Normal [facility] Comment on above: Performed By: #### C BCDIF, PT, PTT, CMP, MG1 ####[place] [address] Erythrocyte distribution width Auto Ratio (RBC) 15.6 % High 11.5-15.0 [facility] Comment on above: Performed By: #### C BCDIF, PT, PTT, CMP, MG1 ####[place] [address] Hematocrit Auto Volume Fraction (Bld) 38.5 % Normal 36.0-46.0 [facility] Comment on above: Performed By: #### C BCDIF, PT, PTT, CMP, MG1 ####[place] [address] Hemoglobin mass conc (Bld) 12.6 g/dL Normal 11.5-15.5 [facility] Comment on above: Performed By: #### C BCDIF, PT, PTT, CMP, MG1 ####[place] [address] Lymphocytes Auto #/vol (Bld) 2.10 10*3/uL Normal 1.00-4.00 [facility] Comment on above: Performed By: #### C BCDIF, PT, PTT, CMP, MG1 ####[place] [address] Lymphocytes/100 WBC Auto (Bld) 25.8 % Normal [facility] Comment on above: Performed By: #### C BCDIF, PT, PTT, CMP, MG1 ####[place] [address] MCH Auto Entitic mass (RBC) 31.3 pG Normal 26.0-34.0 [facility] Comment on above: Performed By: #### C BCDIF, PT, PTT, CMP, MG1 ####[facility] [address] [place] [address] MCHC Auto mass conc (RBC) 32.7 g/dL Normal 30.5-36.0 [facility] Comment on above: Performed By: #### C BCDIF, PT, PTT, CMP, MG1 ####[facility] [address] [place] [address] MCV Auto Entitic volume (RBC) 95.5 fL Normal 80.0-100.0 [facility] Comment on above: Performed By: #### C BCDIF, PT, PTT, CMP, MG1 ####[place] [address] Monocytes/100 WBC Auto (Bld) 6.9 % Normal [facility] Comment on above: Performed By: #### C BCDIF, PT, PTT, CMP, MG1 ####[facility] [address] [place] [address] Neutrophils/100 WBC Auto (Bld) 66.0 % Normal [facility] Comment on above: Performed By: #### C BCDIF, PT, PTT, CMP, MG1 ####[facility] [address] [place] [address] Platelet mean volume Auto Entitic volume (Bld) 10.2 fL Normal 9.0-12.7 [facility] Comment on above: Performed By: #### C BCDIF, PT, PTT, CMP, MG1 ####[facility] [address] [place] [address] Platelets Auto #/vol (Bld) 296 10*3/uL Normal 150-400 [facility] Comment on above: Performed By: #### C BCDIF, PT, PTT, CMP, MG1 ####[facility] [address] [place] [address] RBC Auto #/vol (Bld) 4.03 10*6/uL Normal 3.90-5.20 [facility] Comment on above: Performed By: #### C BCDIF, PT, PTT, CMP, MG1 ####[facility] [address] [place] [phone] WBC Auto #/vol (Bld) 8.13 10*3/uL Normal 3.70-11.00 [facility] Comment on above: Performed By: #### C BCDIF, PT, PTT, CMP, MG1 ####[facility] [address] [place] [phone] CT ABD/PEL W IVCONon 018 CT ABD/PEL W IVCON * * *Final Report* * *DATE OF EXAM: Dec 13 2017 5:31PM [facility] [place]/PEL W IVCON / [...] KOEHLER DO on Dec 13 2017 5:50PM [id number] [facility] CT BRAIN WO IVCONon 12-14-[address] BRAIN WO IVCON * * *Final Report* * *DATE OF EXAM: Dec 13 2017 5:24PM [facility] [place] [place] BRAIN WO IVCON / [...] KOEHLER DO on Dec 13 2017 5:43PM [id number] [facility] Comp Metabolic Panelon 12-13 Albumin mass conc 4.2 g/dL Normal 3.9-4.9 [facility] Comment on above: Performed By: #### C BCDIF, PT, PTT, CMP, MG1 ####[facility] [address] [place] [phone] ALP enzyme act/vol 93 U/L Normal 32-117 [facility] Comment on above: Performed By: #### C BCDIF, PT, PTT, CMP, MG1 ####[facility] [address] [place] [address] ALT enzyme act/vol 10 U/L Normal 7-38 [facility] Comment on above: Performed By: #### C BCDIF, PT, PTT, CMP, MG1 ####[facility] [address] [place] [address] Anion gap 3 molar conc 15 mmol/L Normal 9-18 [facility] Comment on above: Performed By: #### C BCDIF, PT, PTT, CMP, MG1 ####[facility] [address] [place] [address] AST enzyme act/vol 12 U/L Low 13-35 [facility] Comment on above: Result Comment: Resu lts may be falsely increased due to interference by hemolysis. Suggest reorder as clinically indicated. Performed By: #### C BCDIF, PT, PTT, CMP, MG1 ####[facility] [address] [place] [address] Bilirubin mass conc mg/dL Low 0.2-1.3 [facility] Comment on above: Performed By: #### C BCDIF, PT, PTT, CMP, MG1 ####[facility] [address] [place] [address] Calcium mass conc 8.8 mg/dL Normal 8.5-10.2 [facility] Comment on above: Performed By: #### C BCDIF, PT, PTT, CMP, MG1 ####[facility] [address] [place] [address] Chloride molar conc 106 mmol/L High 97-105 [facility] Comment on above: Performed By: #### C BCDIF, PT, PTT, CMP, MG1 ####[facility] [address] [place] [address] CO2 molar conc 21 mmol/L Low 22-30 [facility] Comment on above: Performed By: #### C BCDIF, PT, PTT, CMP, MG1 ####[facility] [address] [place] [address] Creatinine mass conc 0.68 mg/dL Normal 0.58-0.96 [facility] Comment on above: Performed By: #### C BCDIF, PT, PTT, CMP, MG1 ####[facility] [address] eGFR- Amer. >60 Normal [facility] Comment on above: Performed By: #### C BCDIF, PT, PTT, CMP, MG1 ####[facility] [address] GFR/1.73 sq M predicted among non-blacks MDRD vol rate/area (S/P/Bld) mL/min/{1.73_m2} Normal [facility] Comment on above: Result Comment: eGFR (Estimated [...] #### C BCDIF, PT, PTT, CMP, MG1 ####[facility] [address] [place] [address] Glucose mass conc 102 mg/dL High 74-99 [facility] Comment on above: Result Comment: The [place] Diabetes [employer] (ADA) provides guidance for cutoff [...] Standards of Medical Care in Diabetes 2016, [place] [employer]. Diabetes Care. 2016.39(Suppl 1). Performed By: #### C BCDIF, PT, PTT, CMP, MG1 ####[facility] [address] [place] [phone] Potassium molar conc 3.5 mmol/L Low 3.7-5.1 [facility] Comment on above: Performed By: #### C BCDIF, PT, PTT, CMP, MG1 ####[facility] [address] [place] [phone] Protein mass conc 7.0 g/dL Normal 6.3-8.0 [facility] Comment on above: Performed By: #### C BCDIF, PT, PTT, CMP, MG1 ####[facility] [address] [place] [phone] Sodium molar conc 142 mmol/L Normal 136-144 [facility] Comment on above: Performed By: #### C BCDIF, PT, PTT, CMP, MG1 ####[facility] [address] [place] [phone] Urea nitrogen mass conc 15 mg/dL Normal 7-21 [facility] Comment on above: Performed By: #### C BCDIF, PT, PTT, CMP, MG1 ####[facility] [address] [place] [phone] ED NOTEon 12-13-2017 ED NOTE HNO ID: [id number] thor: Laron Delgado (Medic)Service: Emergency MedicineAuthor Type: Structural Metal Fabricator Apprentice and TechnicianType: ED NotesFiled: 12/16/2017 8:02 AMNote [...] December 16, 2017 : 8:02 AM Normal [facility] ED NOTE HNO ID: [id number] thor: CITLALLI Cary Rnervice: (none)Author Type: Registered NurseType: ED NotesFiled: 12/13/2017 7:00 PMNote Text: Pt was discharged home Po fluids were encouraged and the pt wasambulatory with dischargeSister at the bedside [facility] ED NOTE HNO ID: [id number] Author: Kamala ContrerasRn) CLAUDIA Morales Service: (none) Author Type: Registered Nurse Type: ED Notes Filed: 12/13/2017 6:36 PM Note Text: Shane stanton rounds and new orders are received [facility] ED NOTE HNO ID: [id number] thor: Kamala ContrerasRn) Mitra Moralesice: (none)Author Type: Registered NurseType: ED NotesFiled: 12/13/2017 6:05 PMNote Text: Ice applied to the pts left wrist After her iv was discontinued Slightswelling noted Her sister is at the bedside [facility] ED NOTE HNO ID: [id number] Author: Kamala ContrerasRn) CLAUDIA Morales Service: (none) Author Type: Registered Nurse Type: ED Notes Filed: 12/13/2017 4:56 PM Note Text: Pt is resting her sister is bedside No further diarrhea no emesis has been noted [facility] ED NOTE HNO ID: [id number] thor: Bambi ContrerasRn) Mitra Canalesice: NursingAuthor Type: Registered NurseType: ED NotesFiled: 12/13/2017 3:37 PMNote Text:Patient presents with neck pain, nausea, and vomiting, diarrhea, headachex 2-3 weeks. Went to her primary today and he wanted her to have a CTscan and MRI. [facility] ED PROV NOTEon 12-13-2017 Protein mass conc HNO ID: [id number] thor: Lisha Esposito (Pa): (none)Author Type: Physician AssistantType: ED Provider NotesFiled: 12/13/2017 7:22 PMNote Text:ED Provider NotePatient Name: Nabor HerreraMRN: [id number] DATE: 12/13/17HistoryPatient presents with:Nausea AND Cmnpuvjh16-xpde-wye female with a history of schizoaffective disorder, [...] hysterectomy.PAST MEDICAL HISTORYDiagnosis Date- Bipolar 1 disorder ([facility]) sees psych at [facility]- DVT (deep venous thrombosis) ([facility]) 2006- Marijuana use- Migraine with aura- PE (pulmonary embolism) 2006- PTSD (post-traumatic stress disorder) sees psych at [facility]- Schizoaffective disorder ([facility]) sees psych at [facility]- Urinary tract infection, site not specified 2004PAST [...] for headache.3. Follow-up with neurology headache at [facility] within 1 week.4. Follow-up with your [...] Aundrea Esposito (Romy) ROMY Betancourt12/13/17 192 Normal [facility] Lipaseon 12-13-2017 Lipase enzyme act/vol 18 U/L Normal 16-61 [facility] Comment on above: Performed By: #### L IPA ####[facility] [address] [place] [phone] Magnesiumon 12-13-2017 Magnesium mass conc 2.1 mg/dL Normal 1.7-2.3 [facility] Comment on above: Performed By: #### C BCDIF, PT, PTT, CMP, MG1 ####[facility] [address] [place] [phone] Protimeon 12-13-2017 INR Coag RelTime (Bld) 1.0 {INR} Normal 0.9-1.3 [facility] Comment on above: Result Comment: Khushbu min K Antagonist (VKA) Therapeutic Range: INR 2 to 3 (Target INR of 2.5)Note: For patients treated with VKA drugs, such as warfarin, the [place] [employer] 2012 Guideline recommends [...] al. Chest 2012, 141:7S-47SNishimura RA, et al. [facility] 2017, 70: 252-289 Performed By: #### C BCDIF, PT, PTT, CMP, MG1 ####[place] [address] PT Sec 10.5 sec Normal 9.7-13.0 [facility] Comment on above: Performed By: #### C BCDIF, PT, PTT, CMP, MG1 ####[facility] [address] [place] [address] Urinalysison 12-13-2017 Bilirubin, Urine Negative Normal Negative [facility] Comment on above: Performed By: #### C BCDIF, PT, PTT, CMP, MG1 ####[place] [address] Clarity Clear Normal Clear [facility] Comment on above: Performed By: #### C BCDIF, PT, PTT, CMP, MG1 ####[facility] [address] [place] [address] Color Yellow Normal Yellow [facility] Comment on above: Performed By: #### C BCDIF, PT, PTT, CMP, MG1 ####[place] [address] Glucose Ql (U) Negative Normal Negative [facility] Comment on above: Performed By: #### C BCDIF, PT, PTT, CMP, MG1 ####[facility] [address] [place] [address] Hemoglobin/Blood,Ur Negative Normal Negative [facility] Comment on above: Performed By: #### C BCDIF, PT, PTT, CMP, MG1 ####[facility] [address] [place] [address] Ketones Ql (U) Negative Normal Negative [facility] Comment on above: Performed By: #### C BCDIF, PT, PTT, CMP, MG1 ####[facility] [address] [place] [address] Leukest Negative Normal Negative [facility] Comment on above: Performed By: #### C BCDIF, PT, PTT, CMP, MG1 ####[facility] [address] [place] [address] Nitrites Negative Normal Negative [facility] Comment on above: Performed By: #### C BCDIF, PT, PTT, CMP, MG1 ####[facility] [address] [place] [address] pH 6.5 Normal 5.0-8.0 [facility] Comment on above: Performed By: #### C BCDIF, PT, PTT, CMP, MG1 ####[facility] [address] [place] [address] Protein, Urine Negative Normal Negative [facility] [facility] Comment on above: Performed By: #### C BCDIF, PT, PTT, CMP, MG1 ####[facility] [id number] [place] [address] Specific Harper, Ur <=1.005 Normal 1.001-1.029 [facility] Comment on above: Performed By: #### C BCDIF, PT, PTT, CMP, MG1 ####[facility] [id number] [place] [address] Urobilinogen 0.2 Normal 0.2-1.0 [facility] Comment on above: Performed By: #### C BCDIF, PT, PTT, CMP, MG1 ####[facility] [id number] [place] [address] Vital Signs Date Time Vital Sign Value Performing Clinician Facility 12-06-2024 14:57-0400 Body mass index (BMI) [Ratio] 30.56 kg/m2 Alix Douglas PA-C Work Phone: [facility] 12-06-2024 14:57-0400 Body weight 91.17 kg Alix Ortizer PA-C Work Phone: [facility] 12-06-2024 14:57-0400 Diastolic blood pressure 84 mm[Hg] Alix Queener PA-C Work Phone: [facility] 12-06-2024 14:57-0400 Heart rate 73 /min Alix Ortizer PA-C Work Phone: [facility] 12-06-2024 14:57-0400 Respiratory rate 16 /min Alix Queener PA-C Work Phone: [facility] 12-06-2024 14:57-0400 SaO2% (BldA) [Mass fraction] 93 % Alix Queener PA-C Work Phone: [facility] 12-06-2024 14:57-0400 Systolic blood pressure 147 mm[Hg] Alix Ortizer PA-C Work Phone: [facility] 08-16-2024 14:26-0400 Body mass index (BMI) [Ratio] 31.66 kg/m2 Alix Queener PA-C Work Phone: [facility] 08-16-2024 14:26-0400 Body weight 94.44 kg Alix Queener PA-C Work Phone: [facility] 08-16-2024 14:26-0400 Diastolic blood pressure 78 mm[Hg] Alix Queener PA-C Work Phone: [facility] 08-16-2024 14:26-0400 Heart rate 77 /min Alix Queener PA-C Work Phone: [facility] 08-16-2024 14:26-0400 SaO2% (BldA) [Mass fraction] 99 % Alix Queener PA-C Work Phone: [facility] 08-16-2024 14:26-0400 Systolic blood pressure 136 mm[Hg] Alix Queener PA-C Work Phone: [facility] 07-19-2024 16:28-0400 Body mass index (BMI) [Ratio] 31.47 kg/m2 Dionicio Brower MD Work Phone: [facility] 07-19-2024 16:28-0400 Body weight 93.89 kg Dionicio Brower MD Work Phone: [facility] 07-19-2024 16:28-0400 Diastolic blood pressure 62 mm[Hg] Dionicio Brower MD Work Phone: [facility] 07-19-2024 16:28-0400 Heart rate 60 /min Dionicio Brower MD Work Phone: [facility] 07-19-2024 16:28-0400 SaO2% (BldA) [Mass fraction] 100 % Dionicio Brower MD Work Phone: [facility] 07-19-2024 16:28-0400 Systolic blood pressure 108 mm[Hg] Dionicio Brower MD Work Phone: [facility] 06-08-2024 13:52-0500 Body mass index (BMI) [Ratio] 30.56 kg/m2 Vani Adam SENIOR DIGITAL DESIGNER.MEAT WASHER Work Phone: [facility] 06-08-2024 13:52-0500 Body weight 91.17 kg Vani Adam SENIOR DIGITAL DESIGNER.MEAT WASHER Work Phone: [facility] 06-08-2024 13:52-0500 Diastolic blood pressure 72 mm[Hg] Vani Adam SENIOR DIGITAL DESIGNER.MEAT WASHER Work Phone: [facility] 06-08-2024 13:52-0500 Heart rate 80 /min Vani Adam SENIOR DIGITAL DESIGNER.MEAT WASHER Work Phone: [facility] 06-08-2024 13:52-0500 SaO2% (BldA) [Mass fraction] 98 % Vani Adam SENIOR DIGITAL DESIGNER.MEAT WASHER Work Phone: [facility] 06-08-2024 13:52-0500 Systolic blood pressure 105 mm[Hg] Vani Adam SENIOR DIGITAL DESIGNER.MEAT WASHER Work Phone: [facility] 05-24-2024 16:27-0500 Body height 172.7 cm Dionicio Brower MD Work Phone: [facility] 05-24-2024 16:27-0500 Body mass index (BMI) [Ratio] 30.41 kg/m2 Dionicio Brower MD Work Phone: [facility] 05-24-2024 16:27-0500 Body weight 90.72 kg Dionicio Brower MD Work Phone: [facility] 05-24-2024 16:27-0500 Diastolic blood pressure 83 mm[Hg] Dionicio Brower MD Work Phone: [facility] 05-24-2024 16:27-0500 Heart rate 85 /min Dionicio Brower MD Work Phone: [facility] 05-24-2024 16:27-0500 Systolic blood pressure 137 mm[Hg] Dionicio Brower MD Work Phone: [facility] 04-11-2024 14:25-0500 Diastolic blood pressure 92 mm[Hg] Bruna Haagen SENIOR DIGITAL DESIGNER.MEAT WASHER Work Phone: [facility] 04-11-2024 14:25-0500 Heart rate 104 /min Bruna Haagen SENIOR DIGITAL DESIGNER.MEAT WASHER Work Phone: [facility] 04-11-2024 14:25-0500 Respiratory rate 16 /min Bruna Haagen SENIOR DIGITAL DESIGNER.MEAT WASHER Work Phone: [facility] 04-11-2024 14:25-0500 SaO2% (BldA) [Mass fraction] 97 % Bruna Haagen SENIOR DIGITAL DESIGNER.MEAT WASHER Work Phone: [facility] 04-11-2024 14:25-0500 Systolic blood pressure 126 mm[Hg] Bruna Haagen SENIOR DIGITAL DESIGNER.MEAT WASHER Work Phone: [facility] 04-08-2024 08:40-0500 Body mass index (BMI) [Ratio] 30.74 kg/m2 Noreen Tenorio PA-C Work Phone: [facility] 04-08-2024 08:40-0500 Body temperature 99 [degF] Noreen Athy PA-C Work Phone: [facility] 04-08-2024 08:40-0500 Body weight 91.7 kg Noreen Athy PA-C Work Phone: [facility] 04-08-2024 08:40-0500 Diastolic blood pressure 108 mm[Hg] Noreen Athy PA-C Work Phone: [facility] 04-08-2024 08:40-0500 Heart rate 110 /min Noreen Athy PA-C Work Phone: [facility] 04-08-2024 08:40-0500 Respiratory rate 20 /min Noreen Athy PA-C Work Phone: [facility] 04-08-2024 08:40-0500 SaO2% (BldA) [Mass fraction] 96 % Noreen Athy PA-C Work Phone: [facility] 04-08-2024 08:40-0500 Systolic blood pressure 174 mm[Hg] Noreen Athy PA-C Work Phone: [facility] 03-31-2024 09:27-0500 Body height 172.7 cm Dionicio Brower MD Work Phone: [facility] 03-31-2024 09:27-0500 Body mass index (BMI) [Ratio] 32.52 kg/m2 Dionicio Brower MD Work Phone: [facility] 03-31-2024 09:27-0500 Body weight 97 kg Dionicio Brower MD Work Phone: [facility] 03-31-2024 09:27-0500 Diastolic blood pressure 84 mm[Hg] Dionicio Brower MD Work Phone: [facility] 03-31-2024 09:27-0500 Heart rate 72 /min Dionicio Brower MD Work Phone: [facility] 03-31-2024 09:27-0500 SaO2% (BldA) [Mass fraction] 96 % Dionicio Brower MD Work Phone: [facility] 03-31-2024 09:27-0500 Systolic blood pressure 118 mm[Hg] Dionicio Brower MD Work Phone: [facility] 01-24-2024 13:13-0400 Diastolic blood pressure 70 mm[Hg] Bruna Haagen SENIOR DIGITAL DESIGNER.MEAT WASHER Work Phone: [facility] 01-24-2024 13:13-0400 Heart rate 66 /min Bruna Haagen SENIOR DIGITAL DESIGNER.MEAT WASHER Work Phone: [facility] 01-24-2024 13:13-0400 Respiratory rate 16 /min Bruna Haagen SENIOR DIGITAL DESIGNER.MEAT WASHER Work Phone: [facility] 01-24-2024 13:13-0400 SaO2% (BldA) [Mass fraction] 98 % Bruna Haagen SENIOR DIGITAL DESIGNER.MEAT WASHER Work Phone: [facility] 01-24-2024 13:13-0400 Systolic blood pressure 128 mm[Hg] Bruna Haagen SENIOR DIGITAL DESIGNER.MEAT WASHER Work Phone: [facility] 10-22-2023 16:25-0400 Body height 172.7 cm Dionicio Brower MD Work Phone: [facility] 10-22-2023 16:25-0400 Body mass index (BMI) [Ratio] 30.41 kg/m2 Dionicio Brower MD Work Phone: [facility] 10-22-2023 16:25-0400 Body weight 90.72 kg Dionicio Brower MD Work Phone: [facility] 10-22-2023 16:25-0400 Diastolic blood pressure 72 mm[Hg] Dionicio Brower MD Work Phone: [facility] 10-22-2023 16:25-0400 Heart rate 102 /min Dionicoi Brower MD Work Phone: [facility] 10-22-2023 16:25-0400 SaO2% (BldA) [Mass fraction] 99 % Dionicio Brower MD Work Phone: [facility] 10-22-2023 16:25-0400 Systolic blood pressure 94 mm[Hg] Dionicio Brower MD Work Phone: [facility] 10-13-2023 13:05-0400 Body mass index (BMI) [Ratio] 30.41 kg/m2 Dionicio Brower MD Work Phone: [facility] 10-13-2023 13:05-0400 Body weight 90.72 kg Dionicio Brower MD Work Phone: [facility] 10-13-2023 13:05-0400 Diastolic blood pressure 82 mm[Hg] Dionicio Brower MD Work Phone: [facility] 10-13-2023 13:05-0400 Heart rate 87 /min Dionicio Brower MD Work Phone: [facility] 10-13-2023 13:05-0400 SaO2% (BldA) [Mass fraction] 98 % Dionicio Brower MD Work Phone: [facility] 10-13-2023 13:05-0400 Systolic blood pressure 134 mm[Hg] Dionicio Brower MD Work Phone: [facility] 08-11-2023 15:51-0400 Body temperature 97.7 [degF] Dionicio Brower MD Work Phone: [facility] 08-11-2023 15:51-0400 Body weight 88.45 kg Dionicio Brower MD Work Phone: [facility] 08-11-2023 15:51-0400 Diastolic blood pressure 96 mm[Hg] Dionicio Brower MD Work Phone: [facility] 08-11-2023 15:51-0400 Heart rate 110 /min Dionicio Brower MD Work Phone: [facility] 08-11-2023 15:51-0400 Respiratory rate 22 /min Dionicio Brower MD Work Phone: [facility] 08-11-2023 15:51-0400 SaO2% (BldA) [Mass fraction] 98 % Dionicio Brower MD Work Phone: [facility] 08-11-2023 15:51-0400 Systolic blood pressure 140 mm[Hg] Dionicio Brower MD Work Phone: [facility] 06-14-2023 09:53-0500 Body height 175.26 cm [facility] 06-14-2023 09:53-0500 Body mass index (BMI) [Ratio] 30.6 kg/m2 [facility] 06-14-2023 09:53-0500 Body temperature 97.3 [degF] [facility] 06-14-2023 09:53-0500 Body weight 94.12 kg [facility] 06-14-2023 09:53-0500 Diastolic blood pressure 111 mm[Hg] [facility] 06-14-2023 09:53-0500 Heart rate 99 /min [facility] 06-14-2023 09:53-0500 Respiratory rate 16 /min [facility] 06-14-2023 09:53-0500 SaO2% (BldA) [Mass fraction] 100 % [facility] 06-14-2023 09:53-0500 Systolic blood pressure 158 mm[Hg] [facility] 06-03-2023 22:22-0500 Body temperature 96.3 [degF] [facility] 06-03-2023 22:22-0500 Diastolic blood pressure 73 mm[Hg] [facility] 06-03-2023 22:22-0500 Heart rate 92 /min [facility] 06-03-2023 22:22-0500 Respiratory rate 20 /min [facility] 06-03-2023 22:22-0500 SaO2% (BldA) [Mass fraction] 100 % [facility] 06-03-2023 22:22-0500 Systolic blood pressure 144 mm[Hg] [facility] 04-26-2023 13:54-0500 Body temperature 97.9 [degF] [employer] APRN.CNP Work Phone: [facility] 04-26-2023 13:54-0500 Body weight 94.62 kg [employer] APRN.CNP Work Phone: [facility] 04-26-2023 13:54-0500 Diastolic blood pressure 90 mm[Hg] Chico Pendlebury SENIOR DIGITAL DESIGNER.MEAT WASHER Work Phone: [facility] 04-26-2023 13:54-0500 Heart rate 88 /min Chico Pendlebury SENIOR DIGITAL DESIGNER.MEAT WASHER Work Phone: [facility] 04-26-2023 13:54-0500 Respiratory rate 18 /min [facility] SENIOR DIGITAL DESIGNER.MEAT WASHER Work Phone: [facility] 04-26-2023 13:54-0500 SaO2% (BldA) [Mass fraction] 98 % [facility] SENIOR DIGITAL DESIGNER.MEAT WASHER Work Phone: [facility] 04-26-2023 13:54-0500 Systolic blood pressure 142 mm[Hg] Chico Pendlebury SENIOR DIGITAL DESIGNER.MEAT WASHER Work Phone: [facility] 01-06-2023 15:52-0400 Body temperature 98.49 [degF] Cole Frazier MD Work Phone: [facility] 01-06-2023 15:52-0400 Body weight 95.44 kg Cole Frazier MD Work Phone: [facility] 01-06-2023 15:52-0400 Diastolic blood pressure 80 mm[Hg] Cole Frazier MD Work Phone: [facility] 01-06-2023 15:52-0400 Heart rate 86 /min Cole Frazier MD Work Phone: [facility] 01-06-2023 15:52-0400 Respiratory rate 18 /min Cole Frazier MD Work Phone: [facility] 01-06-2023 15:52-0400 SaO2% (BldA) [Mass fraction] 100 % Cole Frazier MD Work Phone: [facility] 01-06-2023 15:52-0400 Systolic blood pressure 122 mm[Hg] Cole Frazier MD Work Phone: [facility] 04-22-2022 15:33-0500 Diastolic blood pressure 82 mm[Hg] Bruna Haagen SENIOR DIGITAL DESIGNER.MEAT WASHER Work Phone: [facility] 04-22-2022 15:33-0500 Heart rate 82 /min Bruna Haagen SENIOR DIGITAL DESIGNER.MEAT WASHER Work Phone: [facility] 04-22-2022 15:33-0500 Respiratory rate 18 /min Bruna Haagen SENIOR DIGITAL DESIGNER.MEAT WASHER Work Phone: [facility] 04-22-2022 15:33-0500 SaO2% (BldA) [Mass fraction] 96 % Bruna Haagen SENIOR DIGITAL DESIGNER.MEAT WASHER Work Phone: [facility] 04-22-2022 15:33-0500 Systolic blood pressure 114 mm[Hg] Bruna Haagen SENIOR DIGITAL DESIGNER.MEAT WASHER Work Phone: [facility] 04-08-2022 12:56-0500 Body temperature 96.91 [degF] Callie Praisler-Wood SENIOR DIGITAL DESIGNER.MEAT WASHER Work Phone: [facility] 04-08-2022 12:56-0500 Body weight 95.71 kg Callie Praisler-Wood SENIOR DIGITAL DESIGNER.MEAT WASHER Work Phone: [facility] 04-08-2022 12:56-0500 Diastolic blood pressure 72 mm[Hg] Callie Praisler-Wood SENIOR DIGITAL DESIGNER.MEAT WASHER Work Phone: [facility] 04-08-2022 12:56-0500 Heart rate 88 /min Callie Praisler-Wood SENIOR DIGITAL DESIGNER.MEAT WASHER Work Phone: [facility] 04-08-2022 12:56-0500 Respiratory rate 16 /min Callie Praisler-Wood SENIOR DIGITAL DESIGNER.MEAT WASHER Work Phone: [facility] 04-08-2022 12:56-0500 SaO2% (BldA) [Mass fraction] 100 % Callie Praisler-Wood SENIOR DIGITAL DESIGNER.MEAT WASHER Work Phone: [facility] 04-08-2022 12:56-0500 Systolic blood pressure 122 mm[Hg] Callie Praisler-Wood SENIOR DIGITAL DESIGNER.MEAT WASHER Work Phone: [facility] 03-16-2022 14:47-0500 Body temperature 97.7 [degF] Nadege Hills SENIOR DIGITAL DESIGNER.MEAT WASHER Work Phone: [facility] 03-16-2022 14:47-0500 Body weight 92.9 kg Nadege Hills SENIOR DIGITAL DESIGNER.MEAT WASHER Work Phone: [facility] 03-16-2022 14:47-0500 Diastolic blood pressure 92 mm[Hg] Nadege Hills SENIOR DIGITAL DESIGNER.MEAT WASHER Work Phone: [facility] 03-16-2022 14:47-0500 Heart rate 82 /min Nadege Hills SENIOR DIGITAL DESIGNER.MEAT WASHER Work Phone: [facility] 03-16-2022 14:47-0500 Respiratory rate 18 /min Nadege Hills SENIOR DIGITAL DESIGNER.MEAT WASHER Work Phone: [facility] 03-16-2022 14:47-0500 SaO2% (BldA) [Mass fraction] 99 % Nadege Hills SENIOR DIGITAL DESIGNER.MEAT WASHER Work Phone: [facility] 03-16-2022 14:47-0500 Systolic blood pressure 144 mm[Hg] Nadege Hills SENIOR DIGITAL DESIGNER.MEAT WASHER Work Phone: [facility] 03-12-2022 17:00-0400 Body weight 92.08 kg NA Lugo PA-C Work Phone: [facility] 03-12-2022 17:00-0400 Diastolic blood pressure 74 mm[Hg] NA Lugo PA-C Work Phone: [facility] 03-12-2022 17:00-0400 Heart rate 83 /min NA Lugo PA-C Work Phone: [facility] 03-12-2022 17:00-0400 Respiratory rate 16 /min NA Lugo PA-C Work Phone: [facility] 03-12-2022 17:00-0400 SaO2% (BldA) [Mass fraction] 99 % NA Lugo PA-C Work Phone: [facility] 03-12-2022 17:00-0400 Systolic blood pressure 118 mm[Hg] NA Lugo PA-C Work Phone: [facility] 02-19-2022 16:32-0400 Body weight 92.99 kg NA Lugo PA-C Work Phone: [facility] 02-19-2022 16:32-0400 Diastolic blood pressure 68 mm[Hg] NA Lugo PA-C Work Phone: [facility] 02-19-2022 16:32-0400 Heart rate 69 /min NA Lugo PA-C Work Phone: [facility] 02-19-2022 16:32-0400 Respiratory rate 16 /min NA Lugo PA-C Work Phone: [facility] 02-19-2022 16:32-0400 SaO2% (BldA) [Mass fraction] 99 % NA Lugo PA-C Work Phone: [facility] 02-19-2022 16:32-0400 Systolic blood pressure 122 mm[Hg] NA Lugo PA-C Work Phone: [facility] 11-22-2021 13:55-0400 Body temperature 99.9 [degF] Chio Vale APRN.MEAT WASHER Work Phone: [facility] 11-22-2021 13:55-0400 Body weight 92.08 kg Chio Vale APRN.MEAT WASHER Work Phone: [facility] 11-22-2021 13:55-0400 Diastolic blood pressure 66 mm[Hg] Chio Vale APRN.MEAT WASHER Work Phone: [facility] 11-22-2021 13:55-0400 Heart rate 122 /min Chio Vale APRN.MEAT WASHER Work Phone: [facility] 11-22-2021 13:55-0400 Respiratory rate 18 /min Chio Vale APRN.MEAT WASHER Work Phone: [facility] 11-22-2021 13:55-0400 SaO2% (BldA) [Mass fraction] 98 % Chio Vale APRN.MEAT WASHER Work Phone: [facility] 11-22-2021 13:55-0400 Systolic blood pressure 120 mm[Hg] Chio Vale APRN.MEAT WASHER Work Phone: [facility] 09-08-2021 16:20-0400 Body weight 92.53 kg NA Lugo PA-C Work Phone: [facility] 09-08-2021 16:20-0400 Diastolic blood pressure 76 mm[Hg] NA Lugo PA-C Work Phone: [facility] 09-08-2021 16:20-0400 Heart rate 90 /min NA Lugo PA-C Work Phone: [facility] 09-08-2021 16:20-0400 Respiratory rate 16 /min NA Lugo PA-C Work Phone: [facility] 09-08-2021 16:20-0400 SaO2% (BldA) [Mass fraction] 97 % NA Lugo PA-C Work Phone: [facility] 09-08-2021 16:20-0400 Systolic blood pressure 128 mm[Hg] NA Lugo PA-C Work Phone: [facility] Encounters Encounter Date Encounter Type Care Provider Facility Start: 03-19-2025 End: 03-19-2025 ambulatory [facility] Facility:[facility] Start: 03-17-2025 End: 03-17-2025 Emergency department patient visit [facility] Facility:[facility] Start: 02-13-2025 End: 02-13-2025 ambulatory [facility] Facility:[facility] Start: 02-05-2025 End: 02-05-2025 ambulatory [facility] Facility:[facility] Start: 02-02-2025 End: 02-02-2025 ambulatory [facility] Facility:[facility] Start: 12-07-2024 End: 12-20-2024 Telephone encounter Alix Douglas PA-C Work Phone: Neurology Comment on above: PAs submitted Start: 12-06-2024 End: 12-06-2024 Patient encounter procedure Alix STANTON-C Work Phone: Neurology Comment on above: Migraine without aur a and with status migrainosus, not intractable (Primary Dx); Migraine with aura, not intractable, without status migrainosus Start: 12-06-2024 End: 12-06-2024 ambulatory DIONICIO BROWER Facility:[facility] Start: 11-22-2024 End: 11-22-2024 Refill Dionicio Brower MD Work Phone: [facility] Comment on above: Refill Request Start: 11-12-2024 End: 11-13-2024 Refill Dionicio Brower MD Work Phone: [facility] Comment on above: Refill Request Start: 09-16-2024 End: 09-25-2024 ambulatory Alix Douglas PA-C Work Phone: Neurology Comment on above: Ajovrobbie Start: 09-14-2024 End: 09-14-2024 ambulatory Dionicio Brower MD Work Phone: [facility] Comment on above: Meds Start: 09-12-2024 End: 09-12-2024 ambulatory Dionicio Brower MD Work Phone: [facility] Comment on above: Veronique Start: 09-11-2024 End: 09-11-2024 Emergency department patient visit Dionicio Inocente Facility:[facility] Start: 09-04-2024 End: 09-07-2024 ambulatory Alix STANTON-Sony Work Phone: Neurology Comment on above: Meds Start: 08-16-2024 End: 08-16-2024 Patient encounter procedure Alix STANTON-C Work Phone: Neurology Comment on above: Migraine without aur a and with status migrainosus, not intractable (Primary Dx); ANNALISA (obstructive sleep apnea) Start: 08-16-2024 End: 08-16-2024 ambulatory DIONICIO BROWER Facility:[facility] Start: 08-09-2024 End: 08-09-2024 Refill Dionicio Brower MD Work Phone: [facility] Comment on above: Refill Request Start: 07-19-2024 End: 07-19-2024 Patient encounter procedure Dionicio Brower MD Work Phone: [facility] Comment on above: Migraine without aur a and with status migrainosus, not intractable (Primary Dx); Bipolar 1 disorder (HCC); Schizoaffective disorder, bipolar type (HCC); Migraine with aura, not intractable, without status migrainosus Start: 07-19-2024 End: 07-19-2024 ambulatory DIONICIO BROWER Facility:[facility] Start: 07-11-2024 End: 08-11-2024 ambulatory Dionicio Brower MD Work Phone: [facility] Start: 06-08-2024 End: 06-08-2024 ambulatory DIONICIO BROWER Facility:[facility] Start: 06-08-2024 End: 06-08-2024 Patient encounter procedure Vani Mccann APRN.MEAT WASHER Work Phone: General Surgery Comment on above: Gastroesophageal ref lux disease, unspecified whether esophagitis present (Primary Dx); Positive colorectal cancer screening using Cologuard test Start: 06-02-2024 End: 06-06-2024 Telephone encounter Dionicio Brower MD Work Phone: [facility] Comment on above: Results (cologuard) Start: 05-24-2024 End: 05-24-2024 Patient encounter procedure Dionicio Brower MD Work Phone: [facility] Comment on above: Anxiety (Primary Dx) ; Migraine without aura and with status migrainosus, not intractable Start: 05-24-2024 End: 05-24-2024 ambulatory DIONICIO BROWER Facility:[facility] Start: 05-18-2024 End: 05-18-2024 Refill Dionicio Brower MD Work Phone: [facility] Comment on above: Refill Request Start: 04-11-2024 End: 04-11-2024 Office outpatient visit 25 minutes Bruna Parker APRN.MEAT WASHER Work Phone: [facility] Comment on above: Bronchitis (Primary Dx); Cough, unspecified type Start: 04-11-2024 End: 04-11-2024 ambulatory [facility] Facility:[facility] Start: 04-09-2024 End: 04-09-2024 Telephone encounter Callie Ordonez APRN.CNP Work Phone: [facility] Comment on above: Results Start: 04-08-2024 End: 04-08-2024 Subsequent hospital visit by physician Xr [facility] Work Phone: Radiology Comment on above: Wheezing [R06.2] Start: 04-08-2024 End: 04-08-2024 [facility] Facility[facility] Start: 04-08-2024 End: 04-08-2024 Patient encounter procedure Noreen Tenorio PA-C Work Phone: [facility] Comment on above: Bronchitis (Primary [...] Start: 03-31-2024 End: 03-31-2024 ambulatory DIONICIO INOCENTE Facility:[facility] Start: 02-28-2024 End: 02-28-2024 Refill Dionicio Brower MD Work Phone: [facility] [place] Comment on above: Refill Request Start: 01-24-2024 End: 01-24-2024 Office outpatient visit 25 minutes Bruna Parker APRN.CNP Work Phone: [facility] [place] Comment on above: Acute otitis media, right (Primary Dx) Start: 12-16-2023 Refill Dionicio Brower MD Work Phone: [facility] [place] Comment on above: Refill Request Start: 11-15-2023 Refill Dionicio Brower MD Work Phone: [facility] [place] Comment on above: Refill Request Start: 10-22-2023 End: 10-22-2023 Patient encounter procedure Dionicio Brower MD Work Phone: [facility] [place] Comment on above: Grief reaction (Prim luz marina Dx); Gastroesophageal reflux disease without esophagitis Start: 10-13-2023 Telephone encounter Dionicio Brower MD Work Phone: [facility] [place] Comment on above: Patient Update Start: 10-13-2023 End: 10-13-2023 Patient encounter procedure Dionicio Brower MD Work Phone: [facility] [place] Comment on above: Grief reaction (Prim luz marina Dx); Primary insomnia; Bipolar 1 disorder (HCC); PTSD (post-traumatic stress disorder); Schizoaffective disorder, bipolar type (HCC) Start: 09-17-2023 Refill Dionicio Brower MD Work Phone: [facility] [place] Comment on above: Refill Request Start: 09-03-2023 Telephone encounter Dionicio Brower MD Work Phone: [facility] [place] Start: 08-12-2023 Telephone encounter Dionicio Brower MD Work Phone: [facility] [place] Comment on above: Results Start: 08-11-2023 End: 08-11-2023 Subsequent hospital visit by physician Tiffanie [facility] [place] Work Phone: Radiology Comment on above: URI, acute [J06.9] Start: 08-11-2023 End: 08-11-2023 Patient encounter procedure Dionicio Brower MD Work Phone: [facility] [place] Comment on above: URI, acute (Primary Dx); Leg cramps; Acute otitis media, right; Bronchitis Start: 08-11-2023 ambulatory Dionicio Brower MD Work Phone: [facility] [place] Start: 07-03-2023 Refill Dionicio Brower MD Work Phone: [facility] [place] Comment on above: Refill Request Start: 06-22-2023 End: 06-22-2023 Patient encounter procedure Nilson Taylor PA-C Work Phone: Plastic Surgery Comment on above: De Quervain's tenosy novitis, right (Primary Dx); Right wrist pain; Trigger thumb of right hand Start: 06-14-2023 End: 06-14-2023 Emergency department patient visit [facility] Work Phone: Start: 06-11-2023 End: 06-11-2023 Subsequent hospital visit by physician Ct [facility] (I-Stat) Work Phone: Cat Scan Comment on above: Lung nodules [R91.8] Start: 06-03-2023 End: 06-04-2023 Emergency department patient visit [facility] Work Phone: Start: 05-25-2023 End: 05-25-2023 Subsequent hospital visit by physician Xr [facility] Work Phone: Radiology Comment on above: Right wrist pain [M2 5.531] Start: 04-26-2023 End: 04-26-2023 Office outpatient visit 25 minutes [employer] SENIOR DIGITAL DESIGNER.MEAT WASHER Work Phone: [facility] Comment on above: Acute otitis externa of right ear, unspecified type (Primary Dx) Start: 04-19-2023 Refill Dionicio Brower MD Work Phone: [facility] Comment on above: Refill Request Start: 02-12-2023 Refill Dionicio Brower MD Work Phone: [facility] Comment on above: Refill Request Start: 02-01-2023 ambulatory Dionicio Brower MD Work Phone: [facility] Comment on above: Breathing Problem Start: 01-07-2023 Telephone encounter Callie Robledo APRN.MEAT WASHER Work Phone: [facility] Comment on above: Results Start: 01-06-2023 End: 01-06-2023 Patient encounter procedure Cole Frazier MD Work Phone: [facility] Comment on above: Acute cough (Primary Dx); Influenza-like illness Start: 12-07-2022 Telephone encounter Dionicio Brower MD Work Phone: [facility] Comment on above: Medication Request Refill Request Start: 09-21-2022 End: 09-21-2022 Refill Dionicio Brower MD Work Phone: [facility] [place] Comment on above: Refill Request Foot pain, right [M7 9.671] Start: 09-09-2022 ambulatory Dionicio Brower MD Work Phone: [facility] [place] Start: 08-19-2022 Refill Dionicio Brower MD Work Phone: [facility] Comment on above: Refill Request Start: 07-25-2022 End: 07-25-2022 Emergency department patient visit PHYSICIAN [facility] Start: 07-07-2022 Refill Dionicio Brower MD Work Phone: [facility] Comment on above: Refill Request Start: 05-21-2022 Refill Dionicio Brower MD Work Phone: [facility] Comment on above: Refill Request Start: 04-22-2022 End: 04-22-2022 Office outpatient visit 15 minutes Bruna Parker APRN.CNP Work Phone: [facility] [place] Comment on above: De Quervain's syndro me (tenosynovitis) (Primary Dx); Right non-suppurative otitis media Start: 04-08-2022 End: 04-08-2022 Refill Dionicio Brower MD Work Phone: [address] [place] [address] Comment on above: Refill Request Other acute nonsuppu rative otitis media of right ear, recurrence not specified (Primary Dx) Start: 03-31-2022 End: 03-31-2022 Subsequent hospital visit by physician Tiffanie [facility] [place] Work Phone: Radiology Comment on above: Injury of right uppe r extremity, initial encounter [S49.91XA] Start: 03-21-2022 Refill Dionicio Brower MD Work Phone: [facility] [place] Comment on above: Refill Request Start: 03-16-2022 End: 03-16-2022 Patient encounter procedure Nadege Hills APRNIsaccMEAT WASHER Work Phone: [facility] Comment on above: Acute otitis media, right (Primary Dx); Otalgia, right ear Start: 03-12-2022 End: 03-12-2022 Patient encounter procedure Rudy Lugo PA-C Work Phone: [facility] [place] Comment on above: Migraine with aura, [...] encounter Rudy Jordy Lugo PA-C Work Phone: [facility] [place] Comment on above: Patient Question Start: 02-25-2022 Telephone encounter Dionicio Brower MD Work Phone: [facility] [place] Comment on above: Results Start: 02-19-2022 End: 02-19-2022 Patient encounter procedure Rudy Jordy Lugo PA-C Work Phone: [facility] [place] Comment on above: Bipolar 1 disorder ( HCC) (Primary Dx); Migraine with aura, not intractable, without status migrainosus; DDD (degenerative disc disease), cervical; Lumbar spondylosis; Schizoaffective disorder, bipolar type (HCC); Elevated glucose Start: 02-09-2022 Telephone encounter Dionicio Brower MD Work Phone: [facility] [place] Comment on above: Medication Problem Start: 01-15-2022 Refill Dionicio Brower MD Work Phone: [facility] [place] Comment on above: Refill Request Start: 01-01-2022 Refill Dionicio Brower MD Work Phone: [facility] [place] Comment on above: Refill Request Start: 12-04-2021 Refill Dionicio Brower MD Work Phone: [facility] Comment on above: Refill Request Start: 11-23-2021 Telephone encounter Callie Robledo ILIR.MEAT WASHER Work Phone: [facility] Comment on above: Results Start: 11-22-2021 End: 11-22-2021 Patient encounter procedure Chio Vale ILIR.MEAT WASHER Work Phone: [facility] Comment on above: Suspected COVID-19 v irus infection (Primary Dx) Start: 11-05-2021 Refill Rudy Jordy cronin PA-C Work Phone: [facility] [place] Comment on above: Refill Request Start: 10-31-2021 Telephone encounter Dionicio Brower MD Work Phone: [facility] [place] Comment on above: Medication Problem Start: 10-27-2021 Refill Dionicio Brower MD Work Phone: [facility] [place] Comment on above: Refill Request Start: 10-20-2021 Telephone encounter Rudy Jordy Lugo PA-C Work Phone: [facility] [place] Comment on above: Appointment Start: 10-17-2021 End: 10-17-2021 Distance Health Rudy Jordy Lugo PA-C Work Phone: [facility] [place] Comment on above: Closed head injury w ithout loss of consciousness, initial encounter (Primary Dx); Hematoma of occipital region of scalp; Concussion without loss of consciousness, initial encounter; Migraine with aura, not intractable, without status migrainosus; Bipolar 1 disorder (HCC); PTSD (post-traumatic stress disorder); Schizoaffective disorder, bipolar type (HCC); Lung nodules Start: 09-22-2021 Refill Dionicio Brower MD Work Phone: [facility] [place] Comment on above: Refill Request Start: 09-19-2021 ambulatory Ami Rudy Asael UNDERWOOD Work Phone: [facility] Comment on above: Head Injury Start: 09-08-2021 End: 09-08-2021 Patient encounter procedure M Jordy Lugo PA-C Work Phone: [facility] [place] Comment on above: Migraine with aura, not intractable, without status migrainosus (Primary Dx); Bipolar 1 disorder (HCC); PTSD (post-traumatic stress disorder); Schizoaffective disorder, bipolar type (HCC) Start: 09-01-2021 Refill Dionicio Brower MD Work Phone: [facility] [place] Comment on above: Refill Request Start: 08-20-2021 Refill Dionicio Brower MD Work Phone: [facility] [place] Comment on above: Erroneous encounter- disregard Start: 08-07-2021 Documentation procedure Mammog carrie Coordinator [facility] Start: 08-07-2021 Letter encounter Mammography Coordinator [facility] Department Start: 08-07-2021 Telephone encounter Dionicio Brower MD Work Phone: [facility] [place] Comment on above: Results Start: 08-07-2021 End: 08-07-2021 Subsequent hospital visit by physician Screen Mammo [facility] Comment on above: Encounter for screen ing mammogram for breast cancer [Z12.31] Lung nodules [R91.8] Start: 07-24-2021 End: 07-24-2021 Subsequent hospital visit by physician Xr [facility] [place] Work Phone: Radiology Comment on above: DDD (degenerative di sc disease), cervical [M50.30] Start: 12-13-2017 End: 12-13-2017 Emergency department patient visit [facility] Procedures Date Procedure Procedure Detail Performing Clinician [...] foot complete minimum 3 views Nadege Hills SENIOR DIGITAL DESIGNER.MEAT WASHER Work Phone: Start: 03-31-2022 Radex hand minimum 3 views Andriy Temple SENIOR DIGITAL DESIGNER.MEAT WASHER Work Phone: Start: 10-17-2021 Adult depression scr [...] 1996 panel - S cherry or Plasma Dionicio Brower MD Work Phone: Start: 07-21-2018 Adult depression scr eening assessment Screen W[facility] Plan of Treatment Date Care Activity Detail Author Start: 11-04-2030 Urine microalbumin profile [facility] Start: 05-25-2027 Screening for malign ant neoplasm of colon [facility] Start: 09-01-2026 Diabetes Screening Diabetes Screenin [facility] Start: 08-10-2026 Diabetes Screening Diabetes Screenin g [facility] Start: 07-25-2025 Diabetes Screening Diabetes Screenin g [facility] Start: 07-19-2025 Lipid 1996 panel - Serum or Plasma Lipid Screening [facility] Start: 07-19-2025 Lipid panel Lipid Screening [facility] Start: 07-19-2025 LIPID SCREEN LIPID SCREEN [facility] Start: 03-31-2025 Covid-19 Vaccine (3 - 2024-25 season) Covid-19 Vaccine () [facility] Comment on above: Postponed from 01/08 (Declined at this time) Start: 03-31-2025 Depression Screening Depression Scre agustina [facility] Start: 03-13-2025 End: 03-13-2025 Patient encounter procedure 03/13/2025 3:00 PM EST Office Visit Neurology [address] [place] [address] Alix Douglas PA-C [address] [place] [address] 3 month follow up Neurology Comment on above: 3 month follow up Start: 02-20-2025 DIABETES SCREEN DIABETES SCREEN [facility] Start: 02-20-2025 Diabetes Screening Diabetes Screenportia jameson [facility] Start: 01-23-2025 End: 01-23-2025 Patient encounter procedure 01/23/2025 3:40 PM EDT Office Visit [facility] [place] [address] [facility] [place] [address] Dionicio Brower MD [address] [place], [place] [id number] 6 mo follow up [facility] [place] Comment on above: 6 mo follow up Start: 01-10-2025 End: 01-10-2025 Patient encounter procedure 01/10/2025 3:00 PM EDT Office Visit Neurology [address] [place], [place] [id number] Alix Douglas PA-C [address] [place] [address] 4 month follow up Neurology Comment on above: 4 month follow up Start: 01-08-2025 Influenza vaccination Influenza Vacc ine (#1) [facility] Start: 12-06-2024 End: 12-06-2024 Patient encounter procedure 12/06/2024 3:00 PM EDT Office Visit Neurology [address] [place], [place] [id number] Alix Douglas PA-C [address] [place], [place] [address] Migraine Neurology Comment on above: Migraine Start: 09-05-2024 End: 09-05-2024 Patient encounter procedure 09/05/2024 2:00 PM EDT Office Visit Neurology [address] [place] [address] Dx: ANNALISA (obstructive sleep apnea) [G47.33] Neurology Comment on above: Dx: ANNALISA (obstructive sleep apnea) [G47.33] Start: 08-16-2024 End: 08-16-2024 Patient encounter procedure 08/16/2024 2:30 PM EDT Office Visit Neurology [address] [place], [place] [phone] Alix Douglas PA-C [address] [place], [place] [phone] Migraine without aura and with status migrainosus, not intractable [G43.001] Neurology Comment on above: Migraine without aur a and with status migrainosus, not intractable [G43.001] Start: 07-26-2024 End: 07-26-2024 Patient encounter procedure 07/26/2024 2:15 PM EDT Appointment [facility] [address] [place] [id number] Coretta Ortega MD [address] [place] [id number] Colon EGD [facility] Comment on above: Colon EGD Start: 07-19-2024 End: 07-19-2024 Patient encounter procedure 07/19/2024 4:00 PM EDT Office Visit [facility] [place] [address] [place], [place] [phone] Dionicio Brower MD [address] [place], [place] [phone] Follow up. Anxiety and Migraines [facility] [place] Comment on above: Follow up. Anxiety a nd Migraines Start: 06-08-2024 End: 06-08-2024 Patient encounter procedure 06/08/2024 2:00 PM EST Office Visit General Surgery [address] [place] [address] Vani Mccann APRN.MEAT WASHER [address] [place] [address] Consult- colonscopy Positive colorectal cancer screening using Cologuard test [R19.5] General Surgery Comment on above: Consult- colonscopy Positive colorectal cancer screening using Cologuard test [R19.5] Start: 05-24-2024 End: 05-24-2024 Patient encounter procedure 05/24/2024 8:40 AM EST Office Visit [facility] [place] [address] [place] [address] Dionicio Brower MD [address] [place] [address] 4 week f/u migraines Family [facility] Comment on above: 4 week f/u migraines Start: 04-28-2024 End: 04-28-2024 Patient encounter procedure 04/28/2024 2:00 PM EST Office Visit [facility] [place] [address] [place] [address] Debbie Pop APRN.MEAT WASHER [address] [place] [address] 4 week f/u migraines [facility] Comment on above: 4 week f/u migraines Start: 01-09-2024 Covid-19 Vaccine ( season) Covid-19 Vaccine ( season) [facility] Start: 01-09-2024 Covid-19 Vaccine ( season) Covid-19 Vaccine () [facility] Start: 01-09-2024 Influenza vaccination C [facility] Start: 11-19-2023 End: 11-19-2023 Patient encounter procedure 11/19/2023 4:20 PM EDT Office Visit [facility] [place] [address] [place] [address] Dionicio Brower MD [address] [place] [address] 4 week follow up [facility] Comment on above: 4 week follow up Start: 10-22-2023 End: 10-22-2023 Patient encounter procedure 10/22/2023 4:40 PM EDT Office Visit [facility] [address] [place] [address] Dionicio Brower MD [address] [place] [address] 1 week follow up [facility] Comment on above: 1 week follow up Start: 08-12-2023 End: 11-11-2023 Basic metabolic 2000 panel - Serum or Plasma BASIC METABOLIC PNL Lab Routine Hypokalemia Expected: 08/12/2023, Expires: 11/11/2023 [facility] Work Phone: Comment on above: Expected: 08/12/2023 , Expires: 11/11/2023 Start: 08-11-2023 End: 11-10-2023 Basic metabolic 2000 panel - Serum or Plasma [facility] Work Phone: Comment on above: Expected: 08/11/2023 , Expires: 11/10/2023 Start: 08-11-2023 End: 11-10-2023 Magnesium [Mass/volume] in Serum or Plasma [facility] Work Phone: Comment on above: Expected: 08/11/2023 , Expires: 11/10/2023 Start: 06-14-2023 Bacteria identified in Urine by Culture [facility] Start: 06-14-2023 [facility] Start: 06-14-2023 [facility] Start: 06-03-2023 [facility] Start: 05-10-2023 Behavioral Health Screening Behavioral Health Screening [facility] Start: 05-10-2023 Depression Assessment Depression Ass essment [facility] Start: 01-08-2023 Covid-19 Vaccine ( season) Covid-19 Vaccine ( season) [facility] Start: 01-08-2023 Influenza vaccination C [facility] Start: 10-17-2022 Adult depression screening assessment DEPRESSION SCREENING [facility] Start: 09-08-2022 Adult depression screening assessment DEPRESSION SCREENING [facility] Start: 08-07-2022 End: 09-06-2022 Ct thorax w/o contrast material CT CHEST WO IVCON Radiology Routine Lung nodules Expected: 08/07/2022, Expires: 09/06/2022 [facility] Work Phone: Comment on above: Expected: 08/07/2022 , Expires: 09/06/2022 Start: 08-07-2022 Mammography [facility] Start: 08-07-2022 Screening for malign ant neoplasm of breast Mammogram Screening [facility] Start: 2022 COLOGUARD (FIT-DNA) COLOGUARD (FIT-D NA) [facility] Start: 2022 Colonoscopy COLONOSCOPY [facility] Start: 2022 COLORECTAL CANCER SCREENING COLORECTAL CANCER SCREENING [facility] Start: [address] COLONOGRAPHY [facility] Start: 2022 FECAL OCCULT BLOOD FECAL OCCULT BLOO D [facility] Start: 2022 Screening for malign ant neoplasm of colon [facility] Start: 2022 SIGMOIDOSCOPY SIGMOIDOSCOPY [facility] Start: 05-22-2022 End: 07-22-2022 Hemoglobin A1c in Blood HGB A1C Lab Routine Bipolar 1 disorder (HCC) Elevated glucose Expected: 05/22/2022, Expires: 07/22/2022 [facility] Work Phone: Comment on above: Expected: 05/22/2022 , Expires: 07/22/2022 Start: 05-10-2022 DEPRESSION ASSESSMENT DEPRESSION ASS ESSMENT [facility] Start: 02-19-2022 End: 04-21-2022 CBC panel - Blood by Automated count CBC Lab Routine Bipolar 1 disorder (HCC) Schizoaffective disorder, bipolar type (HCC) Elevated glucose Expected: 02/19/2022, Expires: 04/21/2022 [facility] Work Phone: Comment on above: Expected: 02/19/2022 , Expires: 04/21/2022 Start: 02-19-2022 End: 04-21-2022 Comprehensive metabolic 2000 panel - Serum or Plasma COMP METABOLIC PANEL Lab Routine Bipolar 1 disorder (HCC) Schizoaffective disorder, bipolar type (HCC) Elevated glucose Expected: 02/19/2022, Expires: 04/21/2022 [facility] Work Phone: Comment on above: Expected: 02/19/2022 , Expires: 04/21/2022 Start: 01-08-2022 Influenza vaccination INFLUENZA (#1) [facility] Start: 11-22-2021 End: 12-06-2021 Influenza virus A and B RNA and SARS-CoV-2 (COVID-19) N gene panel - Respiratory specimen by JOHANNE with probe detection COVID WITH FLUA+B, ROUTINE Microbiology Routine Suspected COVID-19 virus infection Expected: 11/22/2021, Expires: 12/06/2021 [facility] Work Phone: Comment on above: Expected: 11/22/2021 , Expires: 12/06/2021 Start: 09-28-2021 COVID-19 VACCINE (3 - Booster for Pfizer series) COVID-19 VACCINE (3 - Booster for Pfizer series) [facility] Start: 06-25-2021 COVID-19 VACCINE (3 - Booster for Pfizer series) COVID-19 VACCINE (3 - Booster for Pfizer series) [facility] Start: 06-25-2021 COVID-19 VACCINE (3 - Pfizer series) COVID-19 VACCINE (3 - Pfizer series) [facility] Start: 05-10-2021 DEPRESSION ASSESSMENT DEPRESSION ASS ESSMENT [facility] Start: 07-22-2019 Adult depression screening assessment DEPRESSION SCREENING [facility] Start: 08-05-2007 HPV TESTING HPV TESTING [facility] Start: 08-05-2007 Screening for malign ant neoplasm of cervix HPV Testing [facility] Start: 1998 PAP TESTING PAP TESTING [facility] Start: 1998 Screening for malign ant neoplasm of cervix [facility] Start: 1996 ONE PNEUMOVAX PRIOR TO AGE 65 ONE PNEUMOVAX PRIOR TO AGE 65 [facility] Start: 1996 Urine microalbumin profile DTAP,TDAP,TD (1 - Tdap) [facility] Start: 08-05-1995 Depression Screening Depression Scre ening [facility] Start: 08-05-1983 PNEUMOCOCCAL (1 - PCV) PNEUMOCOCCAL (1 - PCV) [facility] COLOGUARD COLOGUARD Lab Ro utine Screening for colon cancer Ordered: 03/31/2024 [facility] Work Phone: Comment on above: Ordered: 03/31/2024 COVID & INFLUENZA A/ B & RSV NAAT, ROUTINE COVID & INFLUENZA A/B & RSV NAAT, ROUTINE Microbiology Routine URI, acute 08/11/2023 4:20 PM EDT [facility] Work Phone: COVID & INFLUENZA A/ B & RSV PCR, ROUTINE COVID & INFLUENZA A/B & RSV PCR, ROUTINE Microbiology Routine Bronchitis Ordered: 04/08/2024 [facility] Work Phone: Comment on above: Ordered: 04/08/2024 End: 08-10-2025 DBT Breast - bilateral screening DELLA SCREENING W KELVIN Radiology Routine Encounter for screening mammogram for breast cancer 1 Occurrences starting 07/11/2024 until 08/10/2025 [facility] Work Phone: Comment on above: 1 Occurrences starti ng 07/11/2024 until 08/10/2025 End: 06-08-2025 EGD DIAGNOSTIC EGD DIAGNOSTIC Endoscopy Routine Positive colorectal cancer screening using Cologuard test Gastroesophageal reflux disease, unspecified whether esophagitis present 1 Occurrences starting 06/08/2024 until 06/08/2025 [facility] Work Phone: Comment on above: 1 Occurrences starti ng 06/08/2024 until 06/08/2025 End: 06-08-2025 Flexible sigmoidoscopy study COLONOSCOPY DIAGNOSTIC Endoscopy Routine Positive colorectal cancer screening using Cologuard test 1 Occurrences starting 06/08/2024 until 06/08/2025 [facility] Comment on above: 1 Occurrences starti ng 06/08/2024 until 06/08/2025 End: 08-16-2025 HOME SLEEP APNEA TEST (HSAT) HOME SLEEP APNEA TEST ([facility]AT) Procedures Routine ANNALISA (obstructive sleep apnea) 1 Occurrences starting 08/16/2024 until 08/16/2025 [facility] Work Phone: Comment on above: 1 Occurrences starti ng 08/16/2024 until 08/16/2025 Influenza virus A an d B RNA and SARS-CoV-2 (COVID-19) N gene panel - Respiratory specimen by JOHANNE with probe detection COVID & INFLUENZA A/B NAAT, ROUTINE Microbiology Routine Acute cough Influenza-like illness 01/06/2023 4:12 PM EDT [facility] Work Phone: End: 10-09-2023 DELLA SCREENING DELLA SCREENING Radiology Routine Encounter for screening mammogram for breast cancer 1 Occurrences starting 09/09/2022 until 10/09/2023 [facility] Work Phone: Comment on above: 1 Occurrences starti ng 09/09/2022 until 10/09/2023 End: 09-09-2024 MG Breast Screening DELLA SCREENING Radiology Routine Encounter for screening mammogram for breast cancer 1 Occurrences starting 08/11/2023 until 09/09/2024 [facility] Work Phone: Comment on above: 1 Occurrences starti ng 08/11/2023 until 09/09/2024 Patient Education [facility] Work Phone: Patient referral [facility] Work Phone: End: 09-09-2024 XR Chest PA and Lateral XR CHEST 2V FRONTAL/LAT Radiology Routine URI, acute Bronchitis 1 Occurrences starting 08/11/2023 until 09/09/2024 [facility] Work Phone: Comment on above: 1 Occurrences starti ng 08/11/2023 until 09/09/2024 XR Chest PA and Lateral XR CHEST 2V FRONTAL/LAT Radiology Routine URI, acute Bronchitis 08/11/2023 5:06 PM EDT [facility] Work Phone: XR Hand - left PA an d Lateral and Oblique XR HAND GENERAL 3V PA/LAT/OBL LEFT Radiology Routine Right wrist pain Ordered: 06/22/2023 [facility] Work Phone: Comment on above: Ordered: 06/22/2023 End: 07-21-2024 XR Wrist - left PA and Lateral and Oblique XR WRIST GENERAL 3V PA/LAT/OBL LEFT Radiology Routine Right wrist pain 1 Occurrences starting 06/22/2023 until 07/21/2024 [facility] Work Phone: Comment on above: 1 Occurrences starti ng 06/22/2023 until 07/21/2024 [facility] Immunizations Immunization Date Immunization Notes Care Provider Fa [facility] 03-31-2024 influenza, seasonal, injectable Dionicio Brower MD Work Phone: [facility] 03-31-2024 influenza virus vaccine, unspecified formulation Dionicio Brower MD Work Phone: [facility] 03-12-2022 pneumococcal Conjuga te, unspecified formulation NA Lugo PA-C Work Phone: [facility] Work Phone: 03-12-2022 pneumococcal (PCV20) vaccine, 20 valent (PREVNAR 20) NA Lugo PA-C Work Phone: [facility] 04-09-2021 influenza, injectabl e, quadrivalent, preservative free NA Lugo PA-C Work Phone: [facility] 04-09-2021 influenza virus vaccine, unspecified formulation Dionicio Brower MD Work Phone: [facility] 11-04-2020 tetanus toxoid, redu jeremy diphtheria toxoid, and acellular pertussis vaccine, adsorbed NA Lugo PA-C Work Phone: [facility] Payers Date Payer Category Payer Self-pay [id number] [phone] [id number] [address] [facility] BLUE CARD PPO OOS [id number] 2024 Unknown [id number] 2022 Unknown [id number] 2022 Unknown [id number] 2013 Unknown [employer] [id number] Medicaid MEDICAID [id number] Unknown [facility] [id number] Unknown [id number] Unknown [id number] Unknown [id number] Social History Date Type Detail Facility Start: 07-10-2013 End: 01-24-2024 Tobacco smoking status KSIS Smokes tobacco daily [facility] History of tobacco use [facility] Work Phone: Start: 07-24-2021 End: 12-06-2024 Alcohol intake Current non-drinker of alcohol (finding) [facility] Start: 1975 Sex Assigned At Not on file [facility] Start: 07-14-2021 End: 04-08-2022 Exposure to SARS-CoV-2 (event) Not sure [facility] Start: 07-10-2013 End: 10-29-2022 Cigarettes smoked current (pack per day) - Reported 0.5 [facility] Work Phone: Start: 07-10-2013 End: 01-24-2024 Tobacco use and exposure Smokeless tobacco non-user [facility] Start: 09-21-2022 End: 10-29-2022 Tobacco use panel [facility] Work Phone: Start: 04-10-2012 Adult Depression Screening Assessment 3 [facility] Work Phone: Start: 06-14-2023 Tobacco smoking stat us KSIS Unknown if ever smoked [facility] Start: 04-26-2020 None [facility] Start: 04-26-2020 With Family [facility] Start: 08-18-2019 Cigarettes [facility] Start: 1975 Sex Assigned At Female W [facility] Has the itsDapper, or [employer] threatened to shut off services in your home in past 12Mo No [facility] Are you now , , , , never or living with a partner? [facility] How often to you hav e a drink containing alcohol? Never [facility] How hard is it for y ou to pay for the very basics like food, housing, medical care, and heating Somewhat hard [facility] Do you feel stress - tense, restless, nervous, or anxious, or unable to sleep at night because your mind is troubled all the time - these days [OSQ] Very much [facility] (I/We) worried wheth er (my/our) food would run out before (I/we) got money to buy more. Sometimes true [facility] In the past 12 month s, was there a time when you were not able to pay the mortgage or rent on time? Yes [facility] Functional Status Date Assessment Result Facility 07-18-2024 Total score [AUDIT-C] 0 07/19/19 25 5:31 AM EDT UserJesica [facility] 07-18-2024 Within the last year , have you been humiliated or emotionally abused in other ways by your partner or ex-partner? No 07/18/2024 5:31 AM EDT UserJesica No [facility] 07-18-2024 Within the last year , have you been afraid of your partner or ex-partner? No 07/18/2024 5:31 AM EDT UserTret No [facility] 07-18-2024 Within the last year , have you been raped or forced to have any kind of sexual activity by your partner or ex-partner? No 07/18/2024 5:31 AM EDT UserJesica No [facility] 07-18-2024 Within the last year , have you been kicked, hit, slapped, or otherwise physically hurt by your partner or ex-partner? No 07/18/2024 5:31 AM EDT UserTret No [facility] 07-18-2024 How often to you hav e a drink containing alcohol? Never 07/18/2024 5:31 AM EDT UserTret Never [facility] 07-18-2024 Functional status Patient does n ot drink 07/18/2024 5:31 AM EDT UserJesica Patient does not drink [facility] 07-18-2024 How often do you hav e 6 or more drinks on 1 occasion? Never 07/18/2024 5:31 AM EDT UserJesica Never [facility] 11-26-2014 Are you deaf, or do you have serious difficulty hearing No 11/26/2014 4:05 PM Keyla Pang Cma No [facility] 11-26-2014 Are you blind, or do you have serious difficulty seeing, even when wearing glasses No 11/26/2014 4:05 PM Keyla Pang Cma No [facility] 11-26-2014 Do you have serious difficulty walking or climbing stairs No 11/26/2014 4:05 PM Keyla Pang Cma No [facility] 11-26-2014 Do you have difficul ty dressing or bathing No 11/26/2014 4:05 PM Keyla Pang Cma No [facility] 11-26-2014 Because of a physica l, mental, or emotional condition, do you have difficulty doing errands alone such as visiting a physician's office or shopping No 11/26/2014 4:05 PM EDT [employer] Keyla Cuello No [facility] Mental Status Date Assessment Result Facility 11-26-2014 Because of a physica l, mental, or emotional condition, do you have serious difficulty concentrating, remembering, or making decisions No 11/26/2014 4:05 PM EDT Heriberto CuelloKeyla No [facility] Clinical Notes 12-01-2013 to 03-19-2025 Telephone Encounter - Candice Shipman LPN - 12/20/2024 10:37 AM EDTTelephone Encounter - Candice Shipman LPN - 12/20/2024 10:37 AM EDTTelephone Encounter - Candice Shipman LPN - 12/07/2024 1:28 PM EDT Note Date & Type Note Facility 03-19-2025 Note HNO ID: [id number] Author: DIONICIO BROWER MD Service: ? Author [...] difficulty standing. - Recent ER visit at [facility] on 03/17; diagnosed with a myofascial sprain [...] MEDICAL HISTORY Diagnosis Date Bipolar 1 disorder ([facility]) sees psych at [facility] DVT (deep venous thrombosis) ([facility]) 2006 Marijuana use Migraine with aura PE (pulmonary embolism) 2006 PTSD (post-traumatic stress disorder) sees psych at [facility] Schizoaffective disorder ([facility]) sees psych at [facility] Urinary tract infection, site not specified 2003 [...] kg (201 lb) (more content not included)... [facility] 02-13-2025 Note HNO ID: [id number] Author: DIONICIO BROWER MD Service: ? Author [...] MEDICAL HISTORY Diagnosis Date Bipolar 1 disorder ([facility]) sees psych at [facility] DVT (deep venous thrombosis) ([facility]) 2006 Marijuana use Migraine with aura PE [...] Warm and dry (more content not included)... [facility] 02-13-2025 Note HNO ID: [id number] Author: FLYNN AKBAR RT(R) Service: ? Author [...] PATIENT PRESENTS WITH AN IMPLANTABLE OR ATTACHED MENTAL HEALTH ASSISTANT: No RADIOLOGY DEPARTMENT: General X-ray: Exam(s) Completed: Spine X-Ray(s): Lumbar AP / LAT / L5-S1 PERIPHERAL IV DATA: Not applicable SIGNED BY: RT Gagan(R) February 13, 2025 4:34 PM [facility] 02-05-2025 Note HNO ID: [id number] Author: DIONICIO BROWER MD Service: ? Author [...] MEDICAL HISTORY Diagnosis Date Bipolar 1 disorder ([facility]) [facility] DVT (deep venous thrombosis) ([facility]) 2006 Marijuana use Migraine with aura PE (pulmonary embolism) 2006 PTSD (post-traumatic stress disorder) sees psych at [facility] Schizoaffective disorder ([facility]) sees psych at [facility] Urinary tract infection, site not specified 2003 [...] well-developed, no acut (more content not included)... [facility] 02-02-2025 Note HNO ID: [id number] Author: ROSA DOSS APRN.MEAT WASHER Service: ? Author Type: Nurse Practitioner Type: Progress Notes Filed: 02/02/2025 10:14 Note Text: Telemedicine Visit - Distance Health Virtual Visit Note Patient seen on [employer] Video Visit platform. Location of patient: [place] Dionicio Brower MD CHIEF COMPLAINT: The patient [...] visit. Either the patient or their legal floor representative has been informed of the risks and benefits of -- and alternatives to -- treatment through a remote evaluation and consents to proceed with the evaluation remotely. IF YOUR SYMPTOMS PERSIST OR WORSENING IN THE NEXT 21 DAYS THEN PLEASE FOLLOW UP WITH YOUR PCP - Red flags discussed for need for in person care - All questions answered Rosa Doss DNP, SENIOR DIGITAL DESIGNER-MEAT WASHER [facility] Emergency Medicine Express [facility] Online Differential [...] pain. OTC Medications were advised: MOTRIN TYLENOL [facility] 02-01-2025 Note HNO ID: [id number] Author: ?, ?, ? Service: ? Author Type: ? Type: Progress Notes Filed: 02/01/2025 11:38 Note Text: Patient was on billing list since 08/2024. Message that this was returned has been relayed to manager library Ewa, who will document the return so charges can be reversed and eventually remove from the billing excel sheet. Sent Myc to inform patient kit was receved in office. [facility] 01-30-2025 Note HNO ID: [id number] Author: ?, ?, ? Service: ? Author Type: ? Type: Progress Notes Filed: 01/30/2025 09:20 Note Text: Sleep Study Check-In Documentation Date: January 30, 2025 Name: Nabor Herrera Comments: HST was returned in work order. Study did not occur. Device was blank will tori Spaulding [facility] 12-20-2024 Telephone encounter Note Letter sent to patient to contact us regard this encounter. Candice Shipman LPN [facility] 12-20-2024 Miscellaneous Notes Letter sent to [...] both Aimovig 70 mg/ml auto injector and [id number] mg via EPIC. Will watch for determinations. Candice Shipman LPN documented in this encounter [facility] 12-12-2024 Note HNO ID: [id number] Author: ?, ?, ? Service: ? Author Type: ? Type: Progress Notes Filed: 12/12/2024 15:29 Note Text: Sent [employer] message. [facility] 12-11-2024 Telephone encounter Note Message left for patient to see if patient wanted to continue with the lyrica or see if another medication would be approved in place of the Aimovig that was denied? Please advise. Candice Shipman LPN [facility] 12-07-2024 Telephone encounter Note When I spoke with patient advised her of approval and denial. Told her to follow up with pharmacy for ubrelvy and once we know how we are proceeding with the preventative medication will let her know. She voiced understanding. Candice Shipman LPN [facility] 12-07-2024 Telephone encounter Note Aimovig PA denied. Forwarding to provider for review. Candice Shipman LPN [facility] 12-07-2024 Telephone encounter Note Images from the original note were not included. Received approval for Ubrelvy. Contacted patient to advise her to follow up with pharmacy on medication. Candice Shipman LPN [facility] 12-07-2024 Telephone encounter Note Submitted PA for both Aimovig 70 mg/ml auto injector and [id number] mg via EPIC. Will watch for determinations. Candice Shipman LPN [facility] 12-06-2024 Instructions Alix Douglas PA-C - 12/06/2024 3:15 PM EDT Will try aimovig injection as a preventative. Will try lyrica 25mg twice daily for headaches Will try ubrelvy 100mg with start of headache Follow up in three months documented in this encounter [facility] 12-06-2024 Note HNO ID: [id number] Author: ALIX DOUGLAS PA-C Service: ? Author Type: Physician Cable Operator Type: Progress Notes Filed: 12/06/2024 15:32 Note Text: [facility] for General Neurology Follow up CC: Headache [...] visit with me. (more content not included)... [facility] 12-06-2024 History of Presen t illness Narrative Images from the original note were not included. [facility] for General Neurology Follow up CC: Headache [...] MEDICAL HISTORY Diagnosis Date Bipolar 1 disorder ([facility]) sees psych at [facility] DVT (deep venous thrombosis) ([facility]) 2006 Marijuana use Migraine with aura PE (pulmonary embolism) 2006 PTSD (post-traumatic stress disorder) sees psych at [facility] Schizoaffective disorder ([facility]) sees psych at [facility] Urinary tract infection, site not specified 2003 [...] which included preparing to see the patient, [id number] patient care, completing clinical documentation, obtaining and/or reviewing separately obtained history, performing a medically appropriate examination, counseling and educating the patient/family/caregiver, and ordering medications, tests, or procedures. [facility] website checked and validated. All prescriptions have been APPROPRIATELY filled. No suspicious activity was identified. 12/06/2024 by BASILIO Bone PA-C General Neurology [address] [place] [address]. [id number] Appointment: [phone] 12/06/2024 [facility] Physical Health Summary [...] and warrants attention documented in this encounter [facility] 12-06-2024 Note HNO ID: [id number] Author: CANDICE SHIPMAN LPN Service: ? Author [...] SD worse than population and warrants attention [facility] 07-16-2025 Telephone encounter Note Prescription Refill Information [...] Card LPN November 22, 2024 12:07 PM [facility] 11-22-2024 Miscellaneous Notes Prescription Refill Information [...] 2024 12:07 PM documented in this encounter [facility] 11-13-2024 Telephone encounter Note Prescription Refill [...] Mendez MA November 13, 2024 3:18 PM [facility] 11-13-2024 Miscellaneous Notes Prescription Refill Information [...] 2024 3:18 PM documented in this encounter [facility] 11-09-2024 Note HNO ID: [id number] Author: ?, ?, ? Service: ? Author Type: ? Type: Progress Notes Filed: 11/09/2024 11:39 Note Text: Waiting on HSAT from postal service. [facility] 10-25-2024 Note HNO ID: [id number] Author: ?, ?, ? Service: ? Author Type: ? Type: Progress Notes Filed: 10/25/2024 16:32 Note Text: Sent myc [facility] regarding hsat billing [facility] 10-18-2024 Note HNO ID: [id number] Author: ?, ?, ? Service: ? Author Type: ? Type: Progress Notes Filed: 10/18/2024 21:33 Note Text: Patient called and stated she did not open, HSAT it was on her porch and she took it to [place] [employer] [facility] [address] [place] [address] the day after she received it, stated she did not know it was suppose to be sent back [employer] Ex only. She stated she is trying to learn how to use MyChart, and if she need to be contacted please sent a text message and she will respond. [facility] 10-18-2024 Note HNO ID: [id number] Author: ?, ?, ? Service: ? Author Type: ? Type: Progress Notes Filed: 10/18/2024 16:52 Note Text: Attempted to reach each number on file, the patients twice. No answer. Mb full. Lvm again on daughter's line. Called mother of patient. Spoke with her and relayed the message in full detailed and provided office call back number. Awaiting a response/return of hsat. [facility] 10-12-2024 Note HNO ID: [id number] Author: ?, ?, ? Service: ? Author Type: ? Type: Progress Notes Filed: 10/12/2024 10:24 Note Text: Pt on billing list. MYC message sent yesterday and has not been read. Called pt and unable to LVM as VM is full [facility] 10-11-2024 Note HNO ID: [id number] Author: ?, ?, ? Service: ? Author [...] to billing fee. Sent myc to patient. [facility] 10-07-2024 Note HNO ID: [id number] Author: ?, ?, ? Service: ? Author Type: ? Type: Progress Notes Filed: 10/07/2024 07:21 Note Text: Called patient to retrieve package. No answer. Unable to Lvm. Sent MC instead. 10/07 [facility] 10-05-2024 Note HNO ID: [id number] Author: ?, ?, ? Service: ? Author Type: ? Type: Progress Notes Filed: 10/05/2024 14:33 Note Text: Called pt and unable to LVM as VM is full. Sent MYC [facility] 09-28-2024 Note HNO ID: [id number] Author: ?, ?, ? Service: ? Author Type: ? Type: Progress Notes Filed: 09/28/2024 09:12 Note Text: Called pt and unable to LVM as VM is full. Sent MYC to return device back to office. [facility] 09-25-2024 Note HNO ID: [id number] Author: ?, ?, ? Service: ? Author Type: ? Type: Progress Notes Filed: 09/25/2024 11:36 Note Text: Unable to LVM for device return. Pt on billing list. Sent MC message. [facility] 09-25-2024 Telephone encounter Note TC to patient [...] explain further, patient hung up. STEPHANIE Payan [facility] 09-25-2024 Miscellaneous Notes TC to patient [...] Please see encounter 09/04/2024. TC to [facility] to inquire why patient is not able to have this medication filled. Pharmacist states copay for patients insurance is $286.74 after prior authorization approval. Patient is not able to use coupon card d/t having government funded insurance. STEPHANIE Payan documented in this encounter [facility] 09-21-2024 Note HNO ID: [id number] Author: ?, ?, ? Service: ? Author Type: ? Type: Progress Notes Filed: 09/21/2024 14:43 Note Text: Called pt and unable to LVM as VM is full Pt read previous [facility] message. Sent another [facility] 09-20-2024 Telephone encounter Note TC to patient [...] d/t having government funded insurance. STEPHANIE Payan [facility] 09-15-2024 Note HNO ID: [id number] Author: ?, ?, ? Service: ? Author Type: ? Type: Progress Notes Filed: 09/15/2024 21:13 Note Text: Unable to LVM [facility] 09-14-2024 Note HNO ID: [id number] Author: ?, ?, ? Service: ? Author Type: ? Type: Progress Notes Filed: 09/14/2024 16:01 Note Text: Called pt and unable to LVM as VM is full. Sent [facility] 09-14-2024 Telephone encounter Note Please see request from pt. Pt last seen in this office 07/19/24 for migraines, was referred to Neurology. Pt was prescribed Ajovy and Nurtec, see message with approval 09/04/24. Pt is having issues with pricing per recent [employer] messages. Pt is Rx'd Imitrex 50 mg from Neuro and 100 mg from PCP. Covering Provider helping out. Do you want to Rx medication or have covering Provider Rx? Rx pended. Ana Batres MA [facility] 09-14-2024 Miscellaneous Notes Please see request from pt. Pt last seen in this office 07/19/24 for migraines, was referred to Neurology. Pt was prescribed Ajovy and Nurtec, see message with approval 09/04/24. Pt is having issues with pricing per recent [employer] messages. Pt is Rx'd Imitrex 50 mg from Neuro and 100 mg from PCP. Covering Provider helping out. Do you want to Rx medication or have covering Provider Rx? Rx pended. Ana Batres MA documented in this encounter [facility] 09-12-2024 Note HNO ID: [id number] Author: ?, ?, ? Service: ? Author Type: ? Type: Progress Notes Filed: 09/12/2024 12:54 Note Text: Sent mychart asking patiently to return device. Unable to lvm because mailbox was full. [facility] 09-12-2024 Telephone encounter Note Pt advised she would need to discuss with Neurologist. Vania Mendez MA [facility] 09-12-2024 Miscellaneous Notes Pt advised she would need to discuss with Neurologist. Vania Mendez MA documented in this encounter [facility] 09-07-2024 Telephone encounter Note Jamal PA has been approved until 12/08/2024. Veronique STANTON has been approved until 03/10/2025. TC to patient with no answer, unable to leave d/t mailbox is full. MC message sent. STEPHANIE Payan [facility] 09-07-2024 Miscellaneous Notes Jamal PA has been approved until 12/08/2024. Veronique PA has been approved until 03/10/2025. TC to patient with no answer, unable to leave d/t mailbox is full. MC message sent. STEPHANIE Payan Questions answered after deadline. PA re-initiated at this time. Please watch for additional questions. STEPHANIE Payan documented in this encounter [facility] 09-07-2024 Telephone encounter Note Questions answered after deadline. PA re-initiated at this time. Please watch for additional questions. STEPHANIE Payan [facility] 09-04-2024 Note HNO ID: [id number] Author: ?, ?, ? Service: ? Author Type: ? Type: Progress Notes Filed: 09/04/2024 16:32 Note Text: [employer] # [id number] , date shipped out 09-04-24 [employer] only Tracking mailout: [id number] Tracking return: [id number] [facility] 09-03-2024 Note HNO ID: [id number] Author: DASHAWN GONZALES APRN.MEAT WASHER Service: ? Author Type: ? Type: Progress Notes Filed: 09/04/2024 06:47 Note Text: September 03, 2024 Standing PSG Orders signed in the last 90 days None Future PSG Orders signed in the last 90 days Ordered Auth. provider HOME SLEEP APNEA TEST (HSAT) [[id number]] 08/16/24 Alix Douglas PA-C Assoc. diagnoses: ANNALISA [...] MEDICAL HISTORY Diagnosis Date Bipolar 1 disorder ([facility]) sees psych at [facility] DVT (deep venous thrombosis) ([facility]) 2006 Marijuana use Migraine with aura PE (pulmonary embolism) 2006 PTSD (post-traumatic stress disorder) sees psych at [facility] Schizoaffective disorder ([facility]) sees psych at [facility] Urinary tract infection, site not specified 2003 [...] and agree to the plan. Dashawn Gonzales APRN.MEAT WASHER 6:47 AM, 09/04/2024 [facility] 08-31-2024 Note HNO ID: [id number] Author: ?, ?, ? Service: ? Author Type: ? Type: Progress Notes Filed: 09/04/2024 06:47 Note Text: August 31, 2024 An order has been received for Home Sleep Apnea Test (HSAT) from Alix Masterson PA-C , a [facility] Staff. Visit prep complete. Comments :No The sleep study is scheduled for 09-05-24. Insurance: Payor: JAYME / Plan: BLUE CARD PPO OOS / Product Type: PPO / Payer/Plan Subscr Sex Relation Sub. Ins. ID Effective Group Num 1. JAYME - INDY* NABOR HERRERA* 1975 Female Self [id number]* 05/10[birth year]24 [address] [facility] 08-16-2024 Instructions Alix Douglas PA-C - 08/16/2024 [...] Feverfew: Feverfew is a common garden herb [place] and popular in [place] [...] pepperoni, Pickled avila Pods of broad nesbitt (Turkmen beans, Danish pea pods, Greek (phil) beans, cruz and navy beans Ripe [...] much light. These can be obtained at [employer] or [employer]: see list above. 2. Limit use of acute treatments (lamc-uin-vhoqkyq medications, triptans, etc.) to no more than [...] and quiet environment. Relax and reduce stress. Ljhbooy4Guydr is a free monie that can instruct you on some simple relaxtion and breathing techniques. Http://Playto.Citybot is a free website that provides teaching [...] and will be handling your phone calls, Brightpearl Messages and inquiries, if any. Unless explicitly told otherwise at the time of your office visit, your study results and ensuing treatment plans will be released via Brightpearl and discussed during your follow-up appointment. Brightpearl: Please ask the schedulers to give you an activation code. The main way of communication is by Brightpearl rather than phone lines, so if you have not signed up, please do so. Brightpearl is also the way that you can review your labs and testing. We are not able to contact everyone to tell them results are normal. If you do not hear back from us regarding testing you have had, it should be considered normal or within normal range. If you have any questions about the results, you are free to message us. Brightpearl is meant for simple questions regarding medications, possible side effects, or other simple straight forward questions in limited sentences, rather than multiple paragraphs of discussion. Picituphart is not meant for, or efficient for [...] do not comment on most testing on Experentit in a message or commentary unless there [...] with this process. documented in this encounter [facility] 08-16-2024 Note HNO ID: [id number] Author: ALIX DOUGLAS PA-C Service: ? Author Type: Physician Cable Operator Type: Progress Notes Filed: 08/16/2024 15:26 Note Text: Neurology Outpatient Clinic Date: August 16, 2024 Patient Name: Nabor Herrera Referring physician: Dionicio Brower [address] [facility] [address] Consult requested for headache by Dr. Brower. Recommendations will be communicated via shared medical record or US mail. Primary physician: Dionicio Brower [address] [place] [address] Reason for Evaluation: Headaches Subjective HPI Nabor [...] issue. Was on (more content not included)... [facility] 08-16-2024 History of Presen t illness Narrative Images from the original note were not included. Neurology Outpatient Clinic Date: August 16, 2024 Patient Name: Nabor Herrera Referring physician: Dionicio Brower [address] [id number] Consult requested for headache by Dr. Brower. Recommendations will be communicated via shared medical record or US mail. Primary physician: Dionicio Brower [address] [place] [address], [id number] Reason for Evaluation: Headaches Subjective HPI Nabor [...] 0 fremanezumab-vfrm 225 mg/1.5 mL subcutaneous syringe (Clear[employer]arma) Inject 1.5 mL subcutaneously once every month. [...] MEDICAL HISTORY Diagnosis Date Bipolar 1 disorder ([facility]) sees psych at [facility] DVT (deep venous thrombosis) ([facility]) 2006 Marijuana use Migraine with aura PE (pulmonary embolism) 2006 PTSD (post-traumatic stress disorder) sees psych at [facility] Schizoaffective disorder ([facility]) sees psych at [facility] Urinary tract infection, site not specified 2003 [...] 2/4 Coordination: finger-to- nose-finger intact bilaterally and pieg-qt-hhbf intact bilaterally. Gait: Patient's gait is normal [...] which included preparing to see the patient, kodu-mo-ibwm patient care, completing clinical documentation, obtaining and/or reviewing separately obtained history, performing a medically appropriate examination, counseling and educating the patient/family/caregiver, and ordering medications, tests, or procedures. Alix Douglas PA-C [facility] Neurology This document has been created with the use of voice recognition technology. It may contain inaccuracies: (e.g. misspellings, inaccurate syntax or word sense) that have escaped review. documented in this encounter [facility] 08-09-2024 Telephone encounter Note Patient requesting the following medication that is on list: baclofen (LIORESAL) 10 mg tablet Patient last seen 07/19/24 Future visit scheduled: yes PHARMACY: [facility] [place] 08-09-2024 Miscellaneous Notes Patient requesting the following medication that is on list: baclofen (LIORESAL) 10 mg tablet Patient last seen 07/19/24 Future visit scheduled: yes PHARMACY: [facility] [place]. documented in this encounter [facility] 07-19-2024 History of Presen t illness [...] MEDICAL HISTORY Diagnosis Date Bipolar 1 disorder ([facility]) [facility] DVT (deep venous thrombosis) ([facility]) 2006 Marijuana use Migraine with aura PE (pulmonary embolism) 2006 PTSD (post-traumatic stress disorder) sees psych at [facility] Schizoaffective disorder ([facility]) sees psych [facility] Urinary tract [...] Dionicio Brower MD documented in this encounter [facility] 07-19-2024 Note HNO ID: [id number] Author: DIONICIO BROWER MD Service: ? Author [...] MEDICAL HISTORY Diagnosis Date Bipolar 1 disorder ([facility]) [facility] DVT (deep venous thrombosis) ([facility]) 2006 Marijuana use Migraine with aura PE (pulmonary embolism) 2006 PTSD (post-traumatic stress disorder) sees psych at [facility] Schizoaffective disorder ([facility]) sees psych at [facility] Urinary tract infection, site not specified 2003 [...] wheezing, rhonchi, r (more content not included)... [facility] 07-11-2024 Note Patient Outreach (FA MPWS) NABOR HERRERA ([id number]) 1975 F Date Time Provider Department 07/11/24 DIONICIO BROWER During your visit today, we recorded the following information about you: Allergies As of Date: 07/11/2024 Noted Allergy Reaction PENICILLINS 04/14/2006 16 - Unknown VICODIN (HYDROCODONE-ACETAMINOPHE*2006 8 - GI Upset Comments: States that was a reaction with compazine not an allergy. Date Reviewed: 06/08/2024 Reviewed by: Vani Mccann APRN.MEAT WASHER - Fully Assessed Visit Diagnosis:Encounter for screening mammogram for breast cancer [Z12.31] Order(s):DELLA SCREENING W KELVIN [[id number]] Order #: [id number] FUTURE Prescriptions as of 08/11/2024 - baclofen [...] disc disease), cervical [M50.*07/24/2021 Encounter Status:Closed by Anago, PRODUSER on 08/11/24 [facility] 06-08-2024 Instructions Vani Mccann APRN.MEAT WASHER - 06/08/2024 2:23 PM EST COLONOSCOPY BOWEL [...] am on dialysis? A: Please consult your basket weaver prior to scheduling to get instructions pertinent to you. In general, dialysis patients take the iDubbaytely bowel prep and have the procedure same [...] of the day. documented in this encounter [facility] 06-08-2024 History of Presen t illness Narrative HISTORY AND PHYSICAL Nabor Herrera : 1975 REFERRING PHYSICIAN: Dioniico Brower [address] [facility] [address] CHIEF COMPLAINT: Patient presents with: Colon Consult [...] MEDICAL HISTORY Diagnosis Date Bipolar 1 disorder ([facility]) sees psych at [facility] DVT (deep venous thrombosis) ([facility]) 2006 Marijuana use Migraine with aura PE (pulmonary embolism) 2006 PTSD (post-traumatic stress disorder) sees psych at [facility] Schizoaffective disorder ([facility]) sees psych at [facility] Urinary tract infection, site not specified 2003 [...] the patient printed material concerning the procedure. Naobr freely consents to surgery. I plan to [...] Vani Mccann APRN.CNP documented in this encounter [facility] 06-08-2024 Note HNO ID: [id number] Author: VANI MCCANN APRN.DAVID Service: ? Author Type: Nurse Practitioner Type: Progress Notes Filed: 06/08/2024 14:39 Note Text: HISTORY AND PHYSICAL Nabor Herrera : 1975 REFERRING PHYSICIAN: Dionicio Brower [address] [place] [address] CHIEF COMPLAINT: Patient presents with: Colon Consult [...] MEDICAL HISTORY Diagnosis Date Bipolar 1 disorder ([facility]) [facility] psych at [facility] DVT (deep venous thrombosis) ([facility]) 2006 Marijuana use Migraine with aura PE (pulmonary embolism) 2006 PTSD (post-traumatic stress disorder) sees psych at [facility] Schizoaffective disorder ([facility]) sees psych at [facility] Urinary tract infection, site not specified 2004 [...] loss of stoo (more content not included)... [facility] 06-02-2024 Telephone encounter Note Patient was notified and requested pss call to schedule Brigitte Oneil MA [facility] 06-02-2024 Miscellaneous Notes Patient was notified and requested pss call to schedule Brigitte Oneil MA Cologuard is positive. Means she has to see surgery for colonoscopy documented in this encounter [facility] 06-02-2024 Telephone encounter Note Cologuard is positive. Means she has to see surgery for colonoscopy [facility] 05-24-2024 Note HNO ID: [id number] Author: DIONICIO BROWER MD Service: ? Author [...] MEDICAL HISTORY Diagnosis Date Bipolar 1 disorder ([facility]) sees psych at [facility] DVT (deep venous thrombosis) ([facility]) 2006 Marijuana use Migraine with aura PE (pulmonary embolism) 2006 PTSD (post-traumatic stress disorder) sees psych at [facility] Schizoaffective disorder ([facility]) [facility] [...] intractable - ICD9: (more content not included)... [facility] 05-24-2024 History of Presen t illness Narrative [...] MEDICAL HISTORY Diagnosis Date Bipolar 1 disorder ([facility]) [facility] DVT (deep venous thrombosis) ([facility]) 2006 Marijuana use Migraine with aura PE (pulmonary embolism) 2006 PTSD (post-traumatic stress disorder) sees psych at [facility] Schizoaffective disorder ([facility]) sees psych at [facility] Urinary tract infection, site not specified 2003 [...] Dionicio Brower MD documented in this encounter [facility] 05-18-2024 Telephone encounter Note Patient has [...] 05/24/2024 Please advise. Thank you. Debbie Melo. [facility] 05-18-2024 Miscellaneous Notes Patient has been [...] you. Debbie Melo. documented in this encounter [facility] 04-11-2024 Instructions Bruna Parker APRN.CNP - [...] if no better/worsening. documented in this encounter [facility] 04-11-2024 Note HNO ID: [id number] Author: BRUNA PARKER APRN.DAVID Service: ? Author [...] MEDICAL HISTORY Diagnosis Date Bipolar 1 disorder ([facility]) sees psych at [facility] DVT (deep venous thrombosis) ([facility]) 2006 Marijuana use Migraine with aura PE (pulmonary embolism) 2006 PTSD (post-traumatic stress disorder) sees psych at [facility] Schizoaffective disorder ([facility]) sees psych at [facility] Urinary tract infection, site not specified 2003 [...] ONDANSETRON 4 M (more content not included)... [facility] 04-11-2024 History of Presen t illness Narrative [...] MEDICAL HISTORY Diagnosis Date Bipolar 1 disorder ([facility]) sees psych at [facility] DVT (deep venous thrombosis) ([facility]) 2006 Marijuana use Migraine with aura PE (pulmonary embolism) 2006 PTSD (post-traumatic stress disorder) sees psych at [facility] Schizoaffective disorder ([facility]) sees psych at [facility] Urinary tract infection, site not specified 2003 [...] as needed for worsening/no improvement. Bruna Parker APRN.MEAT WASHER documented in this encounter [facility] 04-09-2024 Telephone encounter Note Pt was notified of the results. Pt verbalized understanding. Duran Mann MA [facility] 04-09-2024 Miscellaneous Notes Pt was notified of the results. Pt verbalized understanding. Duran Mann MA Please advise patient esophoria COVID/flu/RSV test was negative. Follow instructions given by provider at visit, f/u with PCP if symptoms persist or worsen. Callie Ordonez APRN.MEAT WASHER documented in this encounter [facility] 04-09-2024 Telephone encounter Note Please advise patient esophoria COVID/flu/RSV test was negative. Follow instructions given by provider at visit, f/u with PCP if symptoms persist or worsen. Callie Ordonez APRN.DAVID [facility] 04-08-2024 Note HNO ID: [id number] Author: NOREEN TENORIO PA-C Service: ? Author Type: Physician Cable Operator Type: Progress Notes Filed: 04/08/2024 09:34 Note [...] MEDICAL HISTORY Diagnosis Date Bipolar 1 disorder ([facility]) sees psych at [facility] DVT (deep venous thrombosis) ([facility]) 2006 Marijuana use Migraine with aura PE (pulmonary embolism) 2006 PTSD (post-traumatic stress disorder) sees psych at [facility] Schizoaffective disorder ([facility]) sees psych at [facility] Urinary tract infection, site not specified 2003 [...] CHEST 2V FRONTAL/LA (more content not included)... [facility] 04-08-2024 History of Presen t illness Narrative This note was created using Spark Therapeuticsriter. Subjective Nabor Herrera is a 48 year [...] MEDICAL HISTORY Diagnosis Date Bipolar 1 disorder ([facility]) sees psych at [facility] DVT (deep venous thrombosis) ([facility]) 2006 Marijuana use Migraine with aura PE (pulmonary embolism) 2006 PTSD (post-traumatic stress disorder) sees psych at [facility] Schizoaffective disorder ([facility]) sees psych at [facility] Urinary tract infection, site not specified 2003 [...] Noreen Tenorio PA-C documented in this encounter [facility] 04-08-2024 Nurse Note Ipratropium [place] & Albuterol Sulfate solution aerosol treatment given per provider's orders. Prior to treatment O2 sat is 96%. Treatment completed. Tolerated well. Dashawn Madden MA [facility] 04-08-2024 Nurse Note Ipratropium [place] & Albuterol Sulfate solution aerosol treatment given per provider's orders. Prior to treatment O2 sat is 96%. Treatment completed. Tolerated well. Dashawn Madden MA documented in this encounter [facility] 04-08-2024 History of Presen t illness [...] PATIENT PRESENTS WITH AN IMPLANTABLE OR ATTACHED MENTAL HEALTH ASSISTANT: No RADIOLOGY DEPARTMENT: General X-ray: Exam(s) Completed: Chest X-Ray PERIPHERAL IV DATA: Not applicable SIGNED BY: RT Tyrell(Lynsey) April 08, 2024 8:57 AM documented in this encounter [facility] 04-08-2024 Note HNO ID: [id number] Author: MARISABEL POOLE RT(R) Service: Radiology Author [...] PATIENT PRESENTS WITH AN IMPLANTABLE OR ATTACHED MENTAL HEALTH ASSISTANT: No RADIOLOGY DEPARTMENT: General X-ray: Exam(s) Completed: Chest X-Ray PERIPHERAL IV DATA: Not applicable SIGNED BY: RT Tyrell(Lynsey) April 08, 2024 8:57 AM [facility] 03-31-2024 Note HNO ID: [id number] Author: DIONICIO BROWER MD Service: ? Author [...] MEDICAL HISTORY Diagnosis Date Bipolar 1 disorder ([facility]) sees psych [facility] DVT (deep venous thrombosis) ([facility]) 2006 Marijuana use Migraine with aura PE (pulmonary embolism) 2006 PTSD (post-traumatic stress disorder) sees psych at [facility] Schizoaffective disorder ([facility]) sees psych at [facility] Urinary tract infection, site not specified 2003 [...] - ICD9: V03.89, (more content not included)... [facility] 03-31-2024 History of Presen t illness Narrative [...] MEDICAL HISTORY Diagnosis Date Bipolar 1 disorder ([facility]) [facility] at [facility] DVT (deep venous thrombosis) ([facility]) 2006 Marijuana use Migraine with aura PE (pulmonary embolism) 2006 PTSD (post-traumatic stress disorder) sees psych at [facility] Schizoaffective disorder ([facility]) sees psych at [facility] Urinary tract infection, site not specified 2003 [...] Dionicio Brower MD documented in this encounter [facility] 02-28-2024 Telephone encounter Note Prescription Refill [...] Opal Guardado February 28, 2024 10:19 AM [facility] 02-28-2024 Miscellaneous Notes Prescription Refill Information [...] 2024 10:19 AM documented in this encounter [facility] 01-24-2024 Instructions Bruna Parker APRN.DAVID - 01/24/2024 1:35 PM EDT Start the zpack. Start the ear drops. Let us know if no better/worsening. documented in this encounter [facility] 01-24-2024 History of Presen t illness [...] MEDICAL HISTORY Diagnosis Date Bipolar 1 disorder ([facility]) sees psych at [facility] DVT (deep venous thrombosis) ([facility]) 2006 Marijuana use Migraine with aura PE (pulmonary embolism) 2006 PTSD (post-traumatic stress disorder) sees psych at [facility] Schizoaffective disorder ([facility]) sees psych at [facility] Urinary tract infection, site not specified 2004 [...] Bruna Parker APRN.DAVID documented in this encounter [facility] 12-16-2023 Telephone encounter Note Prescription Refill [...] Brenda Guardado December 16, 2023 2:40 PM [facility] 12-16-2023 Miscellaneous Notes Prescription Refill Information [...] 2023 2:40 PM documented in this encounter [facility] 11-15-2023 Telephone encounter Note Prescription Refill [...] Inez Lugo November 15, 2023 6:03 PM [facility] 11-15-2023 Miscellaneous Notes Prescription Refill Information [...] 2023 6:03 PM documented in this encounter [facility] 11-10-2023 Telephone encounter Note Appears the insurance is still reviewing request. [facility] 11-10-2023 Miscellaneous Notes Appears the insurance is still reviewing request. Still pending review from the insurance company As of 10/24 still pending review from insurance. Message to call office to schedule BUSINESS ADMINISTRATION TEACHER appointment with Tiffanie. Tiffanie can get her in much sooner, if she is able to do my chart. Are we able to see if she can set up. documented in this encounter [facility] 11-03-2023 Telephone encounter Note Still pending review from the insurance company [facility] 10-25-2023 Telephone encounter Note As of 10/24 still pending review from insurance. [facility] 10-22-2023 History of Presen t illness [...] in a mental institute or go to long-term. Refers to not feeling this way anymore. [...] last ov: Sister suddenly yesterday. Is a clinical informatics spec's case. Not doing well. Tearful. Has not [...] MEDICAL HISTORY Diagnosis Date Bipolar 1 disorder ([facility]) [facility] DVT (deep venous thrombosis) ([facility]) 2006 Marijuana use Migraine with aura PE (pulmonary embolism) 2006 PTSD (post-traumatic stress disorder) sees psych at [facility] Schizoaffective disorder ([facility]) sees psych at [facility] Urinary tract infection, site not specified 2003 [...] Dionicio Brower MD documented in this encounter [facility] 10-14-2023 Telephone encounter Note Message to call office to schedule BUSINESS ADMINISTRATION TEACHER appointment with Tiffanie. [facility] 10-13-2023 Telephone encounter Note Tiffanie can get her in much sooner, if she is able to do my chart. Are we able to see if she can set up. [facility] 10-13-2023 History of Presen t illness Narrative Patient presents with: Discussion HPI: Patient presents today for office visit for acute visit. Sister suddenly yesterday. Is a clinical informatics spec's case. Not doing well. Tearful. Has not [...] MEDICAL HISTORY Diagnosis Date Bipolar 1 disorder ([facility]) sees psych [facility] DVT (deep venous thrombosis) ([facility]) 2006 Marijuana use Migraine with aura PE (pulmonary embolism) 2006 PTSD (post-traumatic stress disorder) sees psych at [facility] Schizoaffective disorder ([facility]) sees psych [facility] Urinary tract [...] in one week documented in this encounter [facility] 09-17-2023 Telephone encounter Note Last OV 08/11/23 [facility] 09-17-2023 Miscellaneous Notes Last OV 08/11/23 [...] Maeve Núñez Pss documented in this encounter [facility] 09-17-2023 Telephone encounter Note Patient has [...] need to notify patient. Maeve Núñez Pss [facility] 09-03-2023 Telephone encounter Note Called and updated patient, voiced understanding. Kamala Ashraf LPN September 03, 2023 10:22 AM [facility] 09-03-2023 Miscellaneous Notes Called and updated patient, voiced understanding. Kamala Ashraf LPN September 03, 2023 10:22 AM Recheck is ok. documented in this encounter [facility] 09-03-2023 Telephone encounter Note Recheck is ok. [facility] 08-12-2023 Miscellaneous Notes Patient informed and verbalized understanding. Gricelda Bucio MA Chest xray was negative. documented in this encounter [facility] 08-12-2023 Miscellaneous Notes Patient informed and [...] to two weeks documented in this encounter [facility] 08-11-2023 History of Presen t illness [...] PATIENT PRESENTS WITH AN IMPLANTABLE OR ATTACHED MENTAL HEALTH ASSISTANT: No RADIOLOGY DEPARTMENT: General X-ray: Exam(s) Completed: Chest X-Ray PERIPHERAL IV DATA: Not applicable SIGNED BY: RT Alivia(R) August 11, 2023 4:51 PM documented in this encounter [facility] 08-11-2023 History of Presen t illness [...] MEDICAL HISTORY Diagnosis Date Bipolar 1 disorder ([facility]) [facility] psych [facility] DVT (deep venous thrombosis) ([facility]) 2006 Marijuana use Migraine with aura PE (pulmonary embolism) 2006 PTSD (post-traumatic stress disorder) sees psych [facility] Schizoaffective disorder ([facility]) [facility] Urinary tract [...] Dionicio Brower MD documented in this encounter [facility] 07-03-2023 Miscellaneous Notes Patient has been [...] you. Ruthann Miller. documented in this encounter [facility] 06-22-2023 History of Presen t illness Narrative Images from the original note were not included. PLASTIC SURGERY DEPARTMENT [facility] Hand Surgery Note [x] New referred by [...] to ortho but did not seek treatment. 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 Recreational activities with hands: ........ Dominant Hand: [...] Bipolar 1 disorder (HCC) sees psych at [facility] DVT (deep venous thrombosis) ([facility]) 2006 Marijuana use Migraine with aura PE [...] ? STRENGTH Strength in pounds RIGHT LEFT Principal Consulting Engineer (Alex) [address] pinch (thumb pad [...] []consult pain management []consult orthopedics Follow-up: [x]with BUSINESS ADMINISTRATION TEACHER [] with []after tests completed [x]PRN []1 [...] Past Histories independently gathered by the clinical student support advisor and the remaining scribed note accurately describes [...] not fully corrected. documented in this encounter [facility] 06-11-2023 History of Presen t illness Narrative Radiology Service Progress Note PATIENT NAME: Nabor Herrera DATE OF SERVICE: June 11, 2023 [...] PATIENT PRESENTS WITH AN IMPLANTABLE OR ATTACHED MENTAL HEALTH ASSISTANT: No RADIOLOGY DEPARTMENT: CT; Exam(s) Completed: Chest PERIPHERAL IV DATA: Not applicable SIGNED BY: RT Paris(R) June 11, 2023 1:41 PM documented in this encounter [facility] 05-25-2023 History of Presen t illness [...] 2023 5:47 PM documented in this encounter [facility] 04-26-2023 History of Presen t illness [...] MEDICAL HISTORY Diagnosis Date Bipolar 1 disorder ([facility]) [facility] DVT (deep venous thrombosis) ([facility]) 2006 Marijuana use Migraine with aura PE (pulmonary embolism) 2006 PTSD (post-traumatic stress disorder) sees psych at [facility] Schizoaffective disorder ([facility]) sees psych at [facility] Urinary tract infection, site not specified 2003 [...] of care. This note was generated using [employer] software. It may contain errors in wording, punctuation, or spelling. [employer] APRN.MEAT WASHER documented in this encounter [facility] 04-19-2023 Miscellaneous Notes Pharmacy verified in [facility] in [place] Patient has been identified by name and [...] mg tablet Class: Normal Route: ORAL Order: [id number] Date of last office visit : 04/22/2022 Date of next office visit : Visit date not found Last 2 Encounter Wt Readings: Date: Wt: 01/06/2023 95.4 kg (210 lb 6.4 oz) 09/21/2022 93.4 kg (206 lb) Not applicable Please advise. Keyla Casey Pss documented in this encounter [facility] 04-19-2023 Miscellaneous Notes Pharmacy verified in [facility] Patient has been identified by name [...] Keyla Casey Pss documented in this encounter [facility] 02-12-2023 Miscellaneous Notes Patient last visit [...] patient. Debbie Melo documented in this encounter [facility] 02-01-2023 Miscellaneous Notes Patient calls to [...] O2 SATURATION MONITOR: No Protocols used: Breathing Mvaoiwxqrl-JILMB-VA documented in this encounter [facility] 01-07-2023 Miscellaneous Notes Patient notified.Lizabeth Cervantes LPN ----- Message from Callie Ordonez APRN.MEAT WASHER sent at 01/07/2023 7:12 AM EDT ----- Please advise patient the COVID and flu test was negative. documented in this encounter [facility] 01-06-2023 History of Presen t illness [...] MEDICAL HISTORY Diagnosis Date Bipolar 1 disorder ([facility]) sees psych at [facility] DVT (deep venous thrombosis) ([facility]) 2006 Marijuana use Migraine with aura PE (pulmonary embolism) 2006 PTSD (post-traumatic stress disorder) sees psych at [facility] Schizoaffective disorder ([facility]) sees psych at [facility] Urinary tract infection, site not specified 2003 [...] Cole Frazier MD documented in this encounter [facility] 12-07-2022 Miscellaneous Notes Last office visit: [...] patient. Kelli Man documented in this encounter [facility] 12-07-2022 Miscellaneous Notes Last office visit: 04/22/22 F/u scheduled: none, no showed 10/29/22 Vania Mendez Ma Nabor Herrera is calling Dionicio Brower MD today requesting a refill on an medication. baclofen (LIORESAL) 10 mg tablet Please send to [facility] documented in this encounter [facility] 09-21-2022 Miscellaneous Notes Patient has been [...] patient. Diane Brown documented in this encounter [facility] 08-19-2022 Miscellaneous Notes No visit scheduled. [...] Pham Garcia [employer] documented in this encounter [facility] 07-07-2022 Miscellaneous Notes Addended by: DIONICIO [...] Núñez Pss ' documented in this encounter [facility] 05-21-2022 Miscellaneous Notes Patient has been [...] Nicolette Parks Pss documented in this encounter [facility] 04-22-2022 Instructions Bruna Parker APRN.MEAT WASHER - 04/22/2022 3:57 PM EST Wear the spica splint. Ice to the wrist. You can use the ibuprofen 800 mg every 6-8 hours. You can also use tylenol if needed. Schedule w/ ortho. documented in this encounter [facility] 04-22-2022 History of Presen t illness [...] MEDICAL HISTORY Diagnosis Date Bipolar 1 disorder ([facility]) sees psych at [facility] DVT (deep venous thrombosis) ([facility]) 2006 Marijuana use Migraine with aura PE (pulmonary embolism) 2006 PTSD (post-traumatic stress disorder) sees psych at [facility] Schizoaffective disorder ([facility]) sees psych at [facility] Urinary tract [...] as needed for worsening/no improvement. Bruna Parker APRN.MEAT WASHER This note was partially generated using [employer] voice recognition system. Note was reviewed for accuracy. There may be minor misspellings or grammar miscues with [employer] voice recognition. documented in this encounter [facility] 04-08-2022 History of Presen t illness Narrative Subjective Ear Problem Associated symptoms include hearing loss. Pertinent negatives include no coughing, headaches or sore throat. Nabor Herrera is a 46 year old female who presents to the [facility] care for evaluation of right ear [...] MEDICAL HISTORY Diagnosis Date Bipolar 1 disorder ([facility]) [facility] psych at [facility] DVT (deep venous thrombosis) ([facility]) 2006 Marijuana use Migraine with aura PE (pulmonary embolism) 2006 PTSD (post-traumatic stress disorder) sees psych at [facility] Schizoaffective disorder ([facility]) sees psych at [facility] Urinary tract infection, site not specified 2003 [...] Discussed expected course of illness Callie Ordonez APRN.MEAT WASHER documented in this encounter [facility] 04-08-2022 Instructions Callie Ordonez APRN.CNP - [...] even if the symptoms go away. 2. Kazp-yai-dzwvcfq pain medication may be taken or other [...] him or her). documented in this encounter [facility] 04-08-2022 Miscellaneous Notes [facility] 03/12/22 NOV [...] Pricilla Aragon Pss documented in this encounter [facility] 03-21-2022 Miscellaneous Notes Patient has been [...] you. Helen Stanton documented in this encounter [facility] 03-16-2022 Instructions Nadege Hills APRN.CNP - [...] even if the symptoms go away. 2. Rzmz-cpa-afsguxf pain medication may be taken or other [...] him or her). documented in this encounter [facility] 03-16-2022 History of Presen t illness Narrative This note was created using [employer] The[employer]riter. Subjective Nabor Herrera is a 46 year [...] approximately one week ago She works at [employer] Utilized Tylenol with mild relief. The history is provided by the patient. No aluminum shingle roofer was used. Ear Pain This is a [...] MEDICAL HISTORY Diagnosis Date Bipolar 1 disorder ([facility]) sees psych at [facility] DVT (deep venous thrombosis) ([facility]) 2006 Marijuana use Migraine with aura PE (pulmonary embolism) 2006 PTSD (post-traumatic stress disorder) sees psych at [facility] Schizoaffective disorder ([facility]) sees psych at [facility] Urinary tract infection, site not specified 2003 [...] context and findings of AOM Nadege Hills APRN.MEAT WASHER documented in this encounter [facility] 03-12-2022 Instructions Rudy Lugo PA-C - 03/12/2022 5:20 PM EDT Ice/ moist heat, lineaments, OTC analgesics as needed. Stretching and posture reviewed. documented in this encounter [facility] 03-12-2022 History of Presen t illness Narrative 46 year old female with c/o here for follow up Migraine with aura, not intractable, without status migrainosus (primary encounter diagnosis) Migraine without aura and with status migrainosus, not intractable Chronic tension-type headache, intractable Current medications: Sumatriptan 100 mg stat severe headache, repeat in 2 hours once prn [id number] mg-caff 40mg-butal 50mg q4h prn BORDEN sparingly [...] MEDICAL HISTORY Diagnosis Date Bipolar 1 disorder ([facility]) sees psych [facility] DVT (deep venous thrombosis) ([facility]) 2007 Marijuana use Migraine with aura PE (pulmonary embolism) 2006 PTSD (post-traumatic stress disorder) sees psych at [facility] Schizoaffective disorder ([facility]) sees psych at [facility] Urinary tract infection, site not specified [...] LIST Migraine Without Aura Bipolar 1 disorder ([facility]) Ptsd (Post-Traumatic Stress Disorder) Schizoaffective Disorder ([facility]) Lumbago Chronic Back Pain Lumbar Spondylosis Lumbar [...] prn OMT Push fluids Relaxation techniques, mindfulness. GMDRDARTVK-FHRCUQZGZNLZU-ZABYOVQ E 50 MG-325 MG-40 MG TABLET 2. [...] ICD10: F25.0 As above. Following with [facility] 9. Smoker - ICD9: 305.1, ICD10: F17.200 [...] Rudy Lugo PA-C documented in this encounter [facility] 03-09-2022 Miscellaneous Notes Please assist: Dr. [...] again? Thank you. documented in this encounter [facility] 02-25-2022 Miscellaneous Notes Patient returned call [...] Justin Lugo PA-C documented in this encounter [facility] 02-19-2022 History of Presen t illness [...] Wants to transfer from Dr. Mcghee to [facility] pain management Patient states refill on lamictal [...] MEDICAL HISTORY Diagnosis Date Bipolar 1 disorder ([facility]) sees psych at [facility] DVT (deep venous thrombosis) ([facility]) 2006 Marijuana use Migraine with aura PE (pulmonary embolism) 2006 PTSD (post-traumatic stress disorder) sees psych at [facility] Schizoaffective disorder ([facility]) sees psych [facility] Urinary tract [...] LIST Migraine Without Aura Bipolar 1 disorder ([facility]) Ptsd (Post-Traumatic Stress Disorder) Schizoaffective Disorder ([facility]) Lumbago Chronic Back Pain Lumbar Spondylosis Lumbar [...] sx - SUMATRIPTAN 100 MG TABLET - ERSUKTHWDG-HSSCRQVJLCKFU-HYYLWLI E 50 MG-325 MG-40 MG TABLET 3. [...] Rudy Lugo PA-C documented in this encounter [facility] 02-09-2022 Miscellaneous Notes Pt notified and [...] allow her to get a refill. Nabor [phone] documented in this encounter [facility] 01-15-2022 Miscellaneous Notes Patient phones requesting [...] patient. Diane Brown documented in this encounter [facility] 01-01-2022 Miscellaneous Notes Patient last visit [...] Keyla Casey Pss documented in this encounter [facility] 12-04-2021 Miscellaneous Notes Patient has been [...] to pharmacy. No need to notify patient. [employer] documented in this encounter [facility] 11-23-2021 Miscellaneous Notes Patient given results and verbalized understanding of instructions given. Nicolette Graff ----- Message from Callie Ordonez APRN.MEAT WASHER sent at 11/23/2021 8:15 AM EDT ----- Please advise patient of negative COVID and influenza test. documented in this encounter [facility] 11-22-2021 History of Presen t illness [...] MEDICAL HISTORY Diagnosis Date Bipolar 1 disorder ([facility]) sees psych at [facility] DVT (deep venous thrombosis) ([facility]) 2006 Marijuana use Migraine with aura PE (pulmonary embolism) 2006 PTSD (post-traumatic stress disorder) sees psych at [facility] Schizoaffective disorder ([facility]) sees psych at [facility] Urinary tract infection, site not specified 2003 [...] Patient agreeable to treatment plan. Chio Vale APRN.MEAT WASHER documented in this encounter [facility] 11-05-2021 Miscellaneous Notes oarrs done. [facility]: [...] Maeve Núñez Pss documented in this encounter [facility] 10-31-2021 Miscellaneous Notes Patient phones requesting [...] Patient would like it sent to [facility] Patient has not had the medication in 1 week. documented in this encounter [facility] 10-27-2021 Miscellaneous Notes Pt notified and voiced understanding. Vania Mendez Ma Let her know I wrote two lamictals. Start second after she has finished the script for three 25 mg pills a day [facility] 09/19/2021 Appointment scheduled for 11/21/2021 Please advise. Thank you. DEEP Payan Pharmacy verified in [facility] Patient has been identified by name [...] Keyla Casey Pss documented in this encounter [facility] 10-23-2021 Miscellaneous Notes Patient scheduled with [...] Dashawn Madden MA documented in this encounter [facility] 10-17-2021 History of Presen t illness Narrative Audio only was used for evaluation of this patient. Location of patient: [place] Patient was offered a virtual/telemedicine appointment in [...] (post-traumatic stress disorder) Schizoaffective disorder, bipolar type ([facility]) Current medications: Lamictal up to 75mg Doing [...] Lugo PA-C . documented in this encounter [facility] 09-22-2021 Miscellaneous Notes [facility] 09/19/21 NOV [...] Opal Gifford Pss documented in this encounter [facility] 09-19-2021 History of Presen t illness Narrative Virtualist Progress Note Triage Call Triage source: Nurse Distribution Specialist Mode of contact (phone call, [employer], [employer], [employer] Online, Skype, other): tele History/Physical [...] September 19, 2021 documented in this encounter [facility] 09-19-2021 Miscellaneous Notes Reason For Call: [...] last menstrual period? Denies Protocols used: HEAD YBBHAO-YOBZI-TC documented in this encounter [facility] 09-08-2021 Instructions M Jordy Lugo PA-C [...] Starter Kit-Blue; Subvenite Starter Kit-Green; Subvenite Starter Kit-Weimar Brand Names: [place]APO-LamoTRIgine; Auro-LamoTRIgine; LaMICtal; LamoTRIgine-100; LamoTRIgine-150; [...] Reviewed Date 2019-03-08 documented in this encounter [facility] 09-08-2021 History of Presen t illness [...] at [facility] (deep [facility]) ([facility]) 2007 Marijuana use Migraine with aura PE (pulmonary embolism) 2007 PTSD (post-traumatic stress disorder) sees psych at [facility] Schizoaffective disorder ([facility]) sees psych at [facility] Urinary tract [...] Rudy Lugo PA-C documented in this encounter [facility] 09-01-2021 Miscellaneous Notes [facility] 07/24/21 NOV No upcoming appt Patient has been identified by name and date of : Yes Pending Prescriptions Disp Refills SUMATRIPTAN 100 MG TABLET 9 tablet 2 Sig: Take 1 tablet by mouth as needed. BRIAN: No RX INSTRUCTIONS: Patient aware RX will be sent to pharmacy. No need to notify patient. Diane Brown documented in this encounter [facility] 08-20-2021 Miscellaneous Notes Already called in. documented in this encounter [facility] 08-08-2021 Miscellaneous Notes Patient notified and verbalized understanding Dashawn Wolff [facility] Ct shows two very tiny nodules. Probably ok but recommend repeat ct in in one year. documented in this encounter [facility] 08-07-2021 Miscellaneous Notes August 07, 2021 PID: [id number] Nabor Herrera [address] [place] [address] Dear Ms. Herrera, We are pleased to [...] report will be kept on file at [facility] as part of your permanent medical record and are available for your continuing care. Thank you for allowing us to help in meeting your health care needs. Sincerely, Dr. Jimenez Interpreting Radiologist [facility] (Normal over 40) documented in this encounter [facility] 08-07-2021 History of Presen t illness [...] 2021 8:59 AM documented in this encounter [facility] 08-07-2021 History of Presen t illness [...] 2021 11:12 AM documented in this encounter [facility] 07-24-2021 History of Presen t illness [...] 2021 9:38 AM documented in this encounter [facility] 12-01-2013 History of Past i llness Narrative Problem Noted Date Resolved Date Knee pain 12/01/2013 09/22/2018 Other nonspecific abnormal finding 11/16/2006 11/16/2006 documented as of this encounter (statuses as of 08/08/2021) [facility] History of Past illness Narrative* Problem Noted Date Resolved Date Knee pain 12/01/2013 09/22/2018 Other nonspecific abnormal finding 11/16/2006 11/16/2006 documented as of this encounter (statuses as of 08/08/2021) [facility] of Past illness Narrative* Problem Noted Date Resolved Date Knee pain 12/01/2013 09/22/2018 Other nonspecific abnormal finding 11/16/2006 11/16/2006 documented as of this encounter (statuses as of 08/08/2021) [facility] of Past illness Narrative* Problem Noted Date Resolved Date Knee pain 12/01/2013 09/22/2018 Other nonspecific abnormal finding 11/16/2006 11/16/2006 documented as of this encounter (statuses as of 08/09/2021) [facility] of Past illness Narrative* Problem Noted Date Resolved Date Knee pain 12/01/2013 09/22/2018 Other nonspecific abnormal finding 11/16/2006 11/16/2006 documented as of this encounter (statuses as of 08/20/2021) [facility] of Past illness Narrative* Problem Noted Date Resolved Date Knee pain 12/01/2013 09/22/2018 Other nonspecific abnormal finding 11/16/2006 11/16/2006 documented as of this encounter (statuses as of 09/01/2021) [facility] of Past illness Narrative* Problem Noted Date Resolved Date Knee pain 12/01/2013 09/22/2018 Other nonspecific abnormal finding 11/16/2006 11/16/2006 documented as of this encounter (statuses as of 09/08/2021) [facility] History of Past illness Narrative* Problem Noted Date Resolved Date Knee pain 12/01/2013 09/22/2018 Other nonspecific abnormal finding 11/16/2006 11/16/2006 documented as of this encounter (statuses as of 09/19/2021) [facility] History of Past illness Narrative* Problem Noted Date Resolved Date Knee pain 12/01/2013 09/22/2018 Other nonspecific abnormal finding 11/16/2006 11/16/2006 documented as of this encounter (statuses as of 09/19/2021) [facility] History of Past illness Narrative* Problem Noted Date Resolved Date Knee pain 12/01/2013 09/22/2018 Other nonspecific abnormal finding 11/16/2006 11/16/2006 documented as of this encounter (statuses as of 09/22/2021) [address]25-2014 History of Past illness Narrative* Problem Noted Date Resolved Date Knee pain 12/01/2013 09/22/2018 Other nonspecific abnormal finding 11/16/2006 11/16/2006 documented as of this encounter (statuses as of 10/18/2021) [facility] of Past illness Narrative* Problem Noted Date Resolved Date Knee pain 12/01/2013 09/22/2018 Other nonspecific abnormal finding 11/16/2006 11/16/2006 documented as of this encounter (statuses as of 10/23/2021) [facility] of Past illness Narrative* Problem Noted Date Resolved Date Knee pain 12/01/2013 09/22/2018 Other nonspecific abnormal finding 11/16/2006 11/16/2006 documented as of this encounter (statuses as of 10/27/2021) [facility] History of Past illness Narrative* Problem Noted Date Resolved Date Knee pain 12/01/2013 09/22/2018 Other nonspecific abnormal finding 11/16/2006 11/16/2006 documented as of this encounter (statuses as of 10/31/2021) [facility] History of Past illness Narrative* Problem Noted Date Resolved Date Knee pain 12/01/2013 09/22/2018 Other nonspecific abnormal finding 11/16/2006 11/16/2006 documented as of this encounter (statuses as of 11/06/2021) [facility] History of Past illness Narrative* Problem Noted Date Resolved Date Knee pain 12/01/2013 09/22/2018 Other nonspecific abnormal finding 11/16/2006 11/16/2006 documented as of this encounter (statuses as of 11/22/2021) [facility] of Past illness Narrative* Problem Noted Date Resolved Date Knee pain 12/01/2013 09/22/2018 Other nonspecific abnormal finding 11/16/2006 11/16/2006 documented as of this encounter (statuses as of 11/23/2021) [facility] History of Past illness Narrative* Problem Noted Date Resolved Date Knee pain 12/01/2013 09/22/2018 Other nonspecific abnormal finding 11/16/2006 11/16/2006 documented as of this encounter (statuses as of 12/04/2021) [facility] History of Past illness Narrative* Problem Noted Date Resolved Date Knee pain 12/01/2013 09/22/2018 Other nonspecific abnormal finding 11/16/2006 11/16/2006 documented as of this encounter (statuses as of 01/02/2022) [facility] History of Past illness Narrative* Problem Noted Date Resolved Date Knee pain 12/01/2013 09/22/2018 Other nonspecific abnormal finding 11/16/2006 11/16/2006 documented as of this encounter (statuses as of 01/15/2022) [facility] of Past illness Narrative* Problem Noted Date Resolved Date Knee pain 12/01/2013 09/22/2018 Other nonspecific abnormal finding 11/16/2006 11/16/2006 documented as of this encounter (statuses as of 02/09/2022) [facility] of Past illness Narrative* Problem Noted Date Resolved Date Knee pain 12/01/2013 09/22/2018 Other nonspecific abnormal finding 11/16/2006 11/16/2006 documented as of this encounter (statuses as of 02/20/2022) [facility] History of Past illness Narrative* Problem Noted Date Resolved Date Knee pain 12/01/2013 09/22/2018 Other nonspecific abnormal finding 11/16/2006 11/16/2006 documented as of this encounter (statuses as of 02/25/2022) [facility] History of Past illness Narrative* Problem Noted Date Resolved Date Knee pain 12/01/2013 09/22/2018 Other nonspecific abnormal finding 11/16/2006 11/16/2006 documented as of this encounter (statuses as of 03/13/2022) [facility]-25-2014 History of Past illness Narrative* Problem Noted Date Resolved Date Knee pain 12/01/2013 09/22/2018 Other nonspecific abnormal finding 11/16/2006 11/16/2006 documented as of this encounter (statuses as of 03/16/2022) [facility]2014 History of Past illness Narrative* Problem Noted Date Resolved Date Knee pain 12/01/2013 09/22/2018 Other nonspecific abnormal finding 11/16/2006 11/16/2006 documented as of this encounter (statuses as of 03/23/2022) [facility]2014 History of Past illness Narrative* Problem Noted Date Resolved Date Knee pain 12/01/2013 09/22/2018 Other nonspecific abnormal finding 11/16/2006 11/16/2006 documented as of this encounter (statuses as of 04/08/2022) [facility] History of Past illness Narrative* Problem Noted Date Resolved Date Knee pain 12/01/2013 09/22/2018 Other nonspecific abnormal finding 11/16/2006 11/16/2006 documented as of this encounter (statuses as of 04/22/2022) [facility] History of Past illness Narrative* Problem Noted Date Resolved Date Knee pain 12/01/2013 09/22/2018 Other nonspecific abnormal finding 11/16/2006 11/16/2006 documented as of this encounter (statuses as of 04/22/2022) [facility] History of Past illness Narrative* Problem Noted Date Resolved Date Knee pain 12/01/2013 09/22/2018 Other nonspecific abnormal finding 11/16/2006 11/16/2006 documented as of this encounter (statuses as of 05/21/2022) [facility] History of Past illness Narrative* Problem Noted Date Resolved Date Knee pain 12/01/2013 09/22/2018 Other nonspecific abnormal finding 11/16/2006 11/16/2006 documented as of this encounter (statuses as of 07/08/2022) [facility] History of Past illness Narrative* Problem Noted Date Resolved Date Knee pain 12/01/2013 09/22/2018 Other nonspecific abnormal finding 11/16/2006 11/16/2006 documented as of this encounter (statuses as of 08/20/2022) [facility] History of Past illness Narrative* Problem Noted Date Resolved Date Knee pain 12/01/2013 09/22/2018 Other nonspecific abnormal finding 11/16/2006 11/16/2006 documented as of this encounter (statuses as of 09/14/2022) [facility] History of Past illness Narrative* Problem Noted Date Resolved Date Knee pain 12/01/2013 09/22/2018 Other nonspecific abnormal finding 11/16/2006 11/16/2006 documented as of this encounter (statuses as of 09/22/2022) [facility] History of Past illness Narrative* Problem Noted Date Diagnosed Date Resolved Date Knee pain 12/01/2013 09/22/2018 Other nonspecific abnormal finding 11/16/2006 11/16/2006 documented as of this encounter (statuses as of 12/07/2022) [facility] History of Past illness Narrative* Problem Noted Date Diagnosed Date Resolved Date Knee pain 12/01/2013 09/22/2018 Other nonspecific abnormal finding 11/16/2006 11/16/2006 documented as of this encounter (statuses as of 12/08/2022) [facility] History of Past illness Narrative* Problem Noted Date Diagnosed Date Resolved Date Knee pain 12/01/2013 09/22/2018 Other nonspecific abnormal finding 11/16/2006 11/16/2006 documented as of this encounter (statuses as of 01/07/2023) [facility] History of Past illness Narrative* Problem Noted Date Diagnosed Date Resolved Date Knee pain 12/01/2013 09/22/2018 Other nonspecific abnormal finding 11/16/2006 11/16/2006 documented as of this encounter (statuses as of 01/07/2023) [facility] History of Past illness Narrative* Problem Noted Date Diagnosed Date Resolved Date Knee pain 12/01/2013 09/22/2018 Other nonspecific abnormal finding 11/16/2006 11/16/2006 documented as of this encounter (statuses as of 02/01/2023) [facility] History of Past illness Narrative* Problem Noted Date Diagnosed Date Resolved Date Knee pain 12/01/2013 09/22/2018 Other nonspecific abnormal finding 11/16/2006 11/16/2006 documented as of this encounter (statuses as of 02/13/2023) [facility] History of Past illness Narrative* Problem Noted Date Diagnosed Date Resolved Date Knee pain 12/01/2013 09/22/2018 Other nonspecific abnormal finding 11/16/2006 11/16/2006 documented as of this encounter (statuses as of 04/20/2023) [facility] History of Past illness Narrative* Problem Noted Date Diagnosed Date Resolved Date Knee pain 12/01/2013 09/22/2018 Other nonspecific abnormal finding 11/16/2006 11/16/2006 documented as of this encounter (statuses as of 04/21/2023) [address]25-2014 History of Past illness Narrative* Problem Noted Date Diagnosed Date Resolved Date Knee pain 12/01/2013 09/22/2018 Other nonspecific abnormal finding 11/16/2006 11/16/2006 documented as of this encounter (statuses as of 04/27/2023) [place] [id number] History of Past illness Narrative* Problem Noted Date Diagnosed Date Resolved Date Knee pain 12/01/2013 09/22/2018 Other nonspecific abnormal finding 11/16/2006 11/16/2006 documented as of this encounter (statuses as of 06/12/2023) [place] [id number] History of Past illness Narrative* Problem Noted Date Diagnosed Date Resolved Date Knee pain 12/01/2013 09/22/2018 Other nonspecific abnormal finding 11/16/2006 11/16/2006 documented as of this encounter (statuses as of 06/22/2023) [place] [id number] History of Past illness Narrative* Problem Noted Date Diagnosed Date Resolved Date Knee pain 12/01/2013 09/22/2018 Other nonspecific abnormal finding 11/16/2006 11/16/2006 documented as of this encounter (statuses as of 07/07/2023) [place] [id number] History of Past illness Narrative* Problem Noted Date Diagnosed Date Resolved Date Knee pain 12/01/2013 09/22/2018 Other nonspecific abnormal finding 11/16/2006 11/16/2006 documented as of this encounter (statuses as of 08/12/2023) [facility] History of Past illness Narrative* Problem Noted Date Diagnosed Date Resolved Date Knee pain 12/01/2013 09/22/2018 Other nonspecific abnormal finding 11/16/2006 11/16/2006 documented as of this encounter (statuses as of 08/12/2023) [place] [id number] History of Past illness Narrative* Problem Noted Date Diagnosed Date Resolved Date Knee pain 12/01/2013 09/22/2018 Other nonspecific abnormal finding 11/16/2006 11/16/2006 documented as of this encounter (statuses as of 08/13/2023) [facility] History of Past illness Narrative* Problem Noted Date Diagnosed Date Resolved Date Knee pain 12/01/2013 09/22/2018 Other nonspecific abnormal finding 11/16/2006 11/16/2006 documented as of this encounter (statuses as of 08/16/2023) [facility] note* Diagnosis Lung nodules Other nonspecific abnormal finding of lung field [facility] [place] [facility] Diagnosis Lung nodules Other nonspecific abnormal finding of lung field documented in this encounter [facility] [place] [facility]* Diagnosis Migraine with aura, not intractable, without status migrainosus documented in this encounter [facility] [place] [facility]* Diagnosis Migraine with aura, not intractable, without status migrainosus documented in this encounter [facility] [place] [facility]* Diagnosis Migraine with aura, not intractable, without status migrainosus- Primary Bipolar 1 disorder (HCC) Bipolar I disorder, most recent episode (or current) unspecified PTSD (post-traumatic stress disorder) Posttraumatic stress disorder Schizoaffective disorder, bipolar type (HCC) Schizoaffective disorder, unspecified condition documented in this encounter [facility] [place] [facility]* Diagnosis Closed head injury without loss [...] of lung field documented in this encounter [facility] [place] [facility]* Diagnosis Migraine with aura, not intractable, without status migrainosus Bipolar 1 disorder (HCC) Bipolar I disorder, most recent episode (or current) unspecified PTSD (post-traumatic stress disorder) Posttraumatic stress disorder Schizoaffective disorder, bipolar type (HCC) Schizoaffective disorder, unspecified condition documented in this encounter [facility] note* Diagnosis PTSD (post-traumatic stress disorder) Posttraumatic stress disorder Bipolar 1 disorder (HCC) Bipolar I disorder, most recent episode (or current) unspecified Schizoaffective disorder, bipolar type (HCC) Schizoaffective disorder, unspecified condition documented in this encounter [facility] note* Diagnosis Suspected COVID-19 virus infection- Primary documented in this encounter [facility] note* Diagnosis Migraine with aura, not intractable, without status migrainosus documented in this encounter [facility] [place] [facility]* Diagnosis Bipolar 1 disorder (HCC) Bipolar I disorder, most recent episode (or current) unspecified PTSD (post-traumatic stress disorder) Posttraumatic stress disorder Schizoaffective disorder, bipolar type (HCC) Schizoaffective disorder, unspecified condition [facility] Diagnosis Migraine with aura, not intractable, without status migrainosus [facility] Diagnosis Bipolar 1 disorder (HCC)- Primary Bipolar I disorder, most recent episode (or current) unspecified Migraine with aura, not intractable, without status migrainosus DDD (degenerative disc disease), cervical Degeneration of cervical intervertebral disc Lumbar spondylosis Lumbosacral spondylosis without myelopathy Schizoaffective disorder, bipolar type (HCC) Schizoaffective disorder, unspecified condition Elevated glucose Other abnormal glucose [facility] Diagnosis Migraine with aura, not [...] not elsewhere classified [facility] Diagnosis Acute otitis media, right- Primary Unspecified otitis media Otalgia, right ear [facility] Diagnosis Migraine with aura, not intractable, without status migrainosus [facility] Diagnosis Other acute nonsuppurative otitis media of right ear, recurrence not specified- Primary [facility] Diagnosis De Quervain's syndrome (tenosynovitis)- [...] [facility]: [facility]* Diagnosis De Quervain's tenosynovitis, right- Primary Radial styloid tenosynovitis Right wrist pain Pain in joint, forearm Trigger thumb of right hand Trigger finger (acquired) [facility] Diagnosis Migraine with aura, not [...] disorder, unspecified condition [facility]* Diagnosis Grief reaction- Primary Adjustment disorder with depressed mood Gastroesophageal reflux disease without esophagitis Esophageal reflux [facility]* Diagnosis URI, acute Acute upper respiratory infections of unspecified site Bronchitis Bronchitis, not specified as acute or chronic [facility] [place] [facility]* Diagnosis Right wrist pain Pain in joint, forearm [facility]* Diagnosis Acute otitis media, right- Primary Unspecified otitis media [facility]* Diagnosis Foot pain, right Pain in limb Foot injury, right, initial encounter [facility]* Diagnosis DDD (degenerative disc disease), [...] without status migrainosus [facility] [place] [facility]* Diagnosis Bronchitis- Primary Bronchitis, not specified as acute or chronic Wheezing [facility]* Diagnosis Wheezing [facility]* Diagnosis Bronchitis- Primary Bronchitis, not specified as acute or chronic Cough, unspecified type [facility]* Diagnosis Migraine without aura and with status migrainosus, not intractable Migraine without aura, without mention of intractable migraine with status migrainosus Migraine with aura, not intractable, without status migrainosus [facility]* Diagnosis Anxiety- Primary Anxiety state, unspecified Migraine without aura and with status migrainosus, not intractable Migraine without aura, without mention of intractable migraine with status migrainosus [facility]* Diagnosis Positive colorectal cancer screening using Cologuard test- Primary [facility]* Diagnosis Gastroesophageal reflux disease, unspecified whether esophagitis present- Primary Positive colorectal cancer screening using Cologuard test [facility]* Diagnosis Migraine without aura and with status migrainosus, not intractable- Primary Migraine without aura, without mention of intractable migraine with status migrainosus Bipolar 1 disorder (HCC) Bipolar I disorder, most recent episode (or current) unspecified Schizoaffective disorder, bipolar type (HCC) Schizoaffective disorder, unspecified condition Migraine with aura, not intractable, without status migrainosus [facility]* Diagnosis Encounter for screening mammogram for breast cancer [facility]* Diagnosis Migraine without aura and with status migrainosus, not intractable- Primary Migraine without aura, without mention of intractable migraine with status migrainosus ANNALISA (obstructive sleep apnea) Obstructive sleep apnea (adult) (pediatric) [facility]* Diagnosis Migraine without aura and with status migrainosus, not intractable Migraine without aura, without mention of intractable migraine with status migrainosus Migraine with aura, not intractable, without status migrainosus [facility]* Diagnosis Migraine without aura and with status migrainosus, not intractable Migraine without aura, without mention of intractable migraine with status migrainosus Migraine with aura, not intractable, without status migrainosus [facility]* Diagnosis Migraine without aura and with status migrainosus, not intractable- Primary Migraine without aura, without mention of intractable migraine with status migrainosus Migraine with aura, not intractable, without status migrainosus [facility] Additional Instructions Take medications as directed. Beware of drowsiness and dizziness with Flomax and narcotic pain medication. Return with fever, increased pain, inability to take her medications, new or worsening symptoms.[facility] Work Phone: Reason for referral (narrative)* Diagnostic Procedure Only (Routine) - Pending Review Specialty Diagnoses / Procedures Referred By Claire t Referred To Contact [facility] Diagnoses Encounter for screening mammogram for breast cancer Procedures DELLA SCREENING SCREENING MAMMOGRAPHY BI 2-VIEW BREAST INC CAD Dionicio Brower MD [address] [place] [address] [facility] [address] [place] [address] Referral ID Status Reason Start Date Expiration Date Visits Requested Visits Authorized [id number] Pending Review Auto-Generat ed Referral 09/09/2022 10/09/2023 1 1 [facility] for referral (narrative)* Diagnostic Procedure Only (Routine) - Pending Review Specialty Diagnoses / Procedures Referred By Claire t Referred To Contact XR IMAGING Diagnoses Right wrist pain Procedures XR WRIST GENERAL 3V PA/LAT/OBL LEFT RADEX WRIST COMPLETE MINIMUM 3 VIEWS Gianluca Vines MD [address] [place] [address] Xr Imaging [facility]95 Referral ID Status Reason Start Date Expiration Date Visits Requested Visits Authorized [id number] Pending Review Auto-Generat ed Referral 06/22/2023 07/21/2024 1 1 * Diagnostic Procedure Only (Routine) - Pending Review Specialty Diagnoses / Procedures Referred By Claire t Referred To Contact XR IMAGING Diagnoses Right wrist pain Procedures XR HAND GENERAL 3V PA/LAT/OBL LEFT RADEX HAND MINIMUM 3 VIEWS Gianluca Vines MD [address] [place] [address] [place] [address] Referral ID Status Reason Start Date Expiration Date Visits Requested Visits Authorized [id number] Pending Review Auto-Generat ed Referral 06/22/2023 07/21/2024 1 1 [facility] for referral (narrative)* Diagnostic Procedure Only (Routine) - Pending Review Specialty Diagnoses / Procedures Referred By Claire t Referred To Contact [facility] Diagnoses Encounter for screening mammogram for breast cancer Procedures DELLA SCREENING SCREENING MAMMOGRAPHY BI 2-VIEW BREAST INC CAD Dionicio Brower MD [address] [place] [address] [facility] Imaging [address] [place] [address] Referral ID Status Reason Start Date Expiration Date Visits Requested Visits Authorized [id number] Pending Review Auto-Generat ed Referral 08/11/2023 09/09/2024 1 1 [facility] for referral (narrative)* Diagnostic Procedure Only (Routine) - Closed Specialty Diagnoses / Procedures Referred By Claire t Referred To Contact XR IMAGING Diagnoses Right wrist pain Procedures XR WRIST GENERAL 3V PA/LAT/OBL RIGHT RADEX WRIST COMPLETE MINIMUM 3 VIEWS Dionicio Brower MD [address] [place] [address] [place] [address] Referral ID Status Reason Start Date Expiration Date V isits Requested Visits Authorized [id number] Closed Auto-Generate d Referral 05/25/2023 06/23/2024 1 1 [facility] for referral (narrative)* Diagnostic Procedure Only (Urgent) - Closed Specialty Diagnoses / Procedures Referred By Claire t Referred To Contact XR IMAGING Diagnoses Foot pain, right Foot injury, right, initial encounter Procedures XR FOOT GENERAL 3V AP/LAT/OBL RIGHT RADEX FOOT COMPLETE MINIMUM 3 VIEWS Nadege [place], ILIR.MEAT WASHER [address] [place] [address] [place] [address] Referral ID Status Reason Start Date Expiration Date V isits Requested Visits Authorized [id number] Closed Auto-Generate d Referral 09/21/2022 10/21/2023 1 1 [facility] for referral (narrative)* Diagnostic Procedure Only (Routine) - Closed Specialty Diagnoses / Procedures Referred By Juliac t Referred To Contact XR IMAGING Diagnoses DDD (degenerative disc disease), cervical Procedures XR CERV OTHER 4V AP/LAT/OBL RADEX SPINE CERVICAL 4 OR 5 VIEWS Dionicio Brower MD [address] [place] [address] [place] [address] Referral ID Status Reason Start Date Expiration Date V isits Requested Visits Authorized [id number] Closed Auto-Generate d Referral 07/24/2021 08/23/2022 1 1 [facility] for referral (narrative)* Outpatient Procedure (Routine) - New Request Specialty Diagnoses / Procedures Referred By Juliac t Referred To Contact [facility] Diagnoses Positive colorectal cancer screening using Cologuard test Procedures COLONOSCOPY DIAGNOSTIC COLONOSCOPY FLX DX W/COLLJ SPEC WHEN PFRMVani Cole APRN.MEAT WASHER [address] [facility] [address] [place] [address] [facility] [address] [place], [place] [address] Referral ID Status Reason Start Date Expiration Date Visits Requested Visits Authorized [id number] New Request Auto-Generat ed Referral 06/08/2024 06/08/2025 1 1 * Outpatient Procedure (Routine) - New Request Specialty Diagnoses / Procedures Referred By Claire pickard Referred To Contact [facility] Diagnoses Positive colorectal cancer screening using Cologuard test Gastroesophageal reflux disease, unspecified whether esophagitis present Procedures EGD DIAGNOSTIC ESOPHAGOGASTRODUODENOSC OPY TRANSORAL DIAGNOSTIC Vani Mccann APRN.CNP [address] [place] [address] [facility] [address] [place], [place] [id number] Referral ID Status Reason Start Date Expiration Date Visits Requested Visits Authorized [id number] New Request Auto-Generat ed Referral 06/08/2024 06/08/2025 1 1 [facility] for visit Narrative* Diagnostic Procedure Only (Routine) - Closed Specialty Diagnoses / Procedures Referred By Contac t Referred To Contact XR IMAGING Diagnoses Right wrist pain Procedures XR WRIST GENERAL 3V PA/LAT/OBL RIGHT RADEX WRIST COMPLETE MINIMUM 3 VIEWS Dionicio Brower MD [address] [place] [address] [place] [address] Referral ID Status Reason Start Date Expiration Date V isits Requested Visits Authorized [id number] Closed Auto-Generate d Referral 05/25/2023 06/23/2024 1 1 [facility] for visit Narrative* Diagnostic Procedure Only (Urgent) - Closed Specialty Diagnoses / Procedures Referred By Contac t Referred To Contact XR IMAGING Diagnoses Foot pain, right Foot injury, right, initial encounter Procedures XR FOOT GENERAL 3V AP/LAT/OBL RIGHT RADEX FOOT COMPLETE MINIMUM 3 VIEWS Nadege [place] APRN.MEAT WASHER [address] [place] [address] [place] [address] Referral ID Status Reason Start Date Expiration Date V isits Requested Visits Authorized [id number] Closed Auto-Generate d Referral 09/21/2022 10/21/2023 1 1 [facility] for visit Narrative* Diagnostic Procedure Only (Urgent) - Closed Specialty Diagnoses / Procedures Referred By Contac t Referred To Contact XR IMAGING Diagnoses Injury of right upper extremity, initial encounter Procedures XR WRIST INJURY 4V PA/LAT/OBL/SCAPH RIGHT RADEX WRIST COMPLETE MINIMUM 3 VIEWS Andriy Temple APRN.MEAT WASHER [address] [place] [address] [place] [address] Referral ID Status Reason Start Date Expiration Date V isits Requested Visits Authorized [id number] Closed Auto-Generate d Referral 03/31/2022 04/30/2023 1 1 [facility] Summary Purpose Family History No Family History Records Found Relationship Condition Age at Onset Recorded Date/T shae Unknown Family History?No pe rtinent history Unknown April 22, 2014 9:45pm Family History?No pe rtinent history Unknown October 13, 2018 11:39pm Advance Directives No Advanced Directives Records FoundDocuments on File Type Date Recorded 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 Advance Directive(s) 12/13/2017 5:52 PM Documents on File Type Date Recorded 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 Advance Directive(s) 12/13/2017 5:52 PM Advance Directive Response Recorded Date/ Time Advance Directives No April 6:25pm Living Will No June 14 10:11am Power of Churn Tender No June 14, 2023 10:11am Reason for Referral Specialty Diagnoses / Procedures Referred By Contac t Referred To Contact CT IMAGING Diagnoses Lung nodules Procedures CT CHEST WO IVCON DIAGNOSTIC COMPUTED TOMOGRAPHY THORAX W/O STEVENRST Dionicio Brower MD [address] [place] [address] Ct Imaging Referral ID Status Reason Start Date Expiration Date Visits Requested Visits Authorized [id number] Pending Review Auto-Generat ed Referral 07/24/2021 08/23/2022 1 1 Referral ID Status Reason Start Date Expiration Date Visits Requested Visits Authorized [id number] Pending Review Auto-Generat ed Referral 08/07/2022 09/06/2022 1 1 Specialty Diagnoses / Procedures Referred By Contac t Referred To Contact Pain Management Diagnoses DDD (degenerative disc disease), cervical Lumbar spondylosis Procedures CONSULT TO PAIN MGT OFFICE/OUTPATIENT [facility] 60-74 MINUTES Rudy Lugo PA-C [address] [place] [address] Referral ID Status Reason Start Date Expiration Date Visits Requested Visits Authorized [id number] Pending Review PCP Requested Referral 02/19/2023 1 1 Specialty Diagnoses / Procedures Referred By Contac t Referred To Contact Orthopedics Diagnoses De Quervain's syndrome (tenosynovitis) Procedures CONSULT TO ORTHOPAEDICS OFFICE/OUTPATIENT [facility] MDM 60-74 MINUTES Bruna Parker APRN.[employer] [address] [place] [address] Referral ID Status Reason Start Date Expiration Date Visits Requested Visits Authorized [id number] Pending Review PCP Requested Referral 04/22/2023 1 1 Specialty Diagnoses / Procedures Referred By Contac t Referred To Contact CT IMAGING Diagnoses Lung nodules Procedures CT CHEST WO IVCON DIAGNOSTIC COMPUTED TOMOGRAPHY THORAX [place] [address] [place] [address] [place] [id number] Referral ID Status Reason Start Date Expiration Date V isits Requested Visits Authorized [id number] Closed Auto-Generate d Referral 05/28/2023 08/26/2023 1 1 Specialty Diagnoses / Procedures Referred By Contac t Referred To Contact Diagnoses Grief reaction Primary insomnia Bipolar 1 disorder (HCC) PTSD (post-traumatic stress disorder) Schizoaffective disorder, bipolar type (HCC) Procedures CONSULT TO PSYCHIATRY OFFICE/OUTPATIENT [facility] 60 MINUTES Dionicio Brower MD [address] [place] [id number] Referral ID Status Reason Start Date Expiration Date Visits Requested Visits Authorized [id number] Pending Review PCP Requested Referral 10/13/2023 10/12/2024 1 1 Specialty Diagnoses / Procedures Referred By Contac t Referred To Contact General Surgery Diagnoses Positive colorectal cancer screening using Cologuard test Procedures CONSULT TO GENERAL SURGERY OFFICE/OUTPATIENT [facility] 60 MINUTES Dionicio Brower MD [address] [place] [address] Referral ID Status Reason Start Date Expiration Date Visits Requested Visits Authorized [id number] Authorized PCP Requested Referral 06/02/2024 06/02/2025 1 1 Health Concerns Infection Onset Date Last Indicated Resolved Time COVID-19 Rule-Out 11/22/2021 11/22/2021 Infection Onset Date Last Indicated Resolved Time COVID-19 Rule-Out 11/22/2021 11/22/2021 11/23/2021 7:34 AM EDT Chief Complaint and Reason for Visit Chief Complaint fall LEFT FLANK Additional Source Comments INFORMATION SOURCE (unrecogn ized section and content) DATE CREATED AUTHOR 12/21/2017 [facility] DATE CREATED AUTHOR AUTHOR'S ORGANIZ ATION 07/31/2022 [facility] DATE CREATED AUTHOR AUTHOR'S ORGANIZ ATION 03/18/2025 [facility] DATE CREATED AUTHOR AUTHOR'S ORGANIZ ATION 03/20/2025 [facility] Source Comments (unrecognize d section and content) In the event this informatio n is protected by the Federal Confidentiality of Alcohol and Drug Abuse Patient Records regulations: The Federal rules restrict any use of the information to criminally investigate or prosecute any alcohol or drug abuse patient.[facility] the event this information is protected by the Federal Confidentiality of Alcohol and Drug Abuse Patient Records regulations: The Federal rules restrict any use of the information to criminally investigate or prosecute any alcohol or drug abuse patient.[facility] the event this information is protected by the Federal Confidentiality of Alcohol and Drug Abuse Patient Records regulations: The Federal rules restrict any use of the information to criminally investigate or prosecute any alcohol or drug abuse patient.[facility] the event this information is protected by the Federal Confidentiality of Alcohol and Drug Abuse Patient Records regulations: The Federal rules restrict any use of the information to criminally investigate or prosecute any alcohol or drug abuse patient.[facility]In the event this information is protected by the Federal Confidentiality of Alcohol and Drug Abuse Patient Records regulations: The Federal rules restrict any use of the information to criminally investigate or prosecute any alcohol or drug abuse patient.[facility]In the event this information is protected by the Federal Confidentiality of Alcohol and Drug Abuse Patient Records regulations: The Federal rules restrict any use of the information to criminally investigate or prosecute any alcohol or drug abuse patient.[facility]In the event this information is protected by the Federal Confidentiality of Alcohol and Drug Abuse Patient Records regulations: The Federal rules restrict any use of the information to criminally investigate or prosecute any alcohol or drug abuse patient.[facility]In the event this information is protected by the Federal Confidentiality of Alcohol and Drug Abuse Patient Records regulations: The Federal rules restrict any use of the information to criminally investigate or prosecute any alcohol or drug abuse patient.[facility]In the event this information is protected by the Federal Confidentiality of Alcohol and Drug Abuse Patient Records regulations: The Federal rules restrict any use of the information to criminally investigate or prosecute any alcohol or drug abuse patient.[facility] HospitalIn the event this information is protected by the Federal Confidentiality of Alcohol and Drug Abuse Patient Records regulations: The Federal rules restrict any use of the information to criminally investigate or prosecute any alcohol or drug abuse patient.[facility] HospitalIn the event this information is protected by the Federal Confidentiality of Alcohol and Drug Abuse Patient Records regulations: The Federal rules restrict any use of the information to criminally investigate or prosecute any alcohol or drug abuse patient.[facility] HospitalIn the event this information is protected by the Federal Confidentiality of Alcohol and Drug Abuse Patient Records regulations: The Federal rules restrict any use of the information to criminally investigate or prosecute any alcohol or drug abuse patient.[facility] HospitalIn the event this information is protected by the Federal Confidentiality of Alcohol and Drug Abuse Patient Records regulations: The Federal rules restrict any use of the information to criminally investigate or prosecute any alcohol or drug abuse patient.[facility] HospitalIn the event this information is protected by the Federal Confidentiality of Alcohol and Drug Abuse Patient Records regulations: The Federal rules restrict any use of the information to criminally investigate or prosecute any alcohol or drug abuse patient.[facility] HospitalIn the event this information is protected by the Federal Confidentiality of Alcohol and Drug Abuse Patient Records regulations: The Federal rules restrict any use of the information to criminally investigate or prosecute any alcohol or drug abuse patient.[facility] HospitalIn the event this information is protected by the Federal Confidentiality of Alcohol and Drug Abuse Patient Records regulations: The Federal rules restrict any use of the information to criminally investigate or prosecute any alcohol or drug abuse patient.[facility] HospitalIn the event this information is protected by the Federal Confidentiality of Alcohol and Drug Abuse Patient Records regulations: The Federal rules restrict any use of the information to criminally investigate or prosecute any alcohol or drug abuse patient.[facility] HospitalIn the event this information is protected by the Federal Confidentiality of Alcohol and Drug Abuse Patient Records regulations: The Federal rules restrict any use of the information to criminally investigate or prosecute any alcohol or drug abuse patient.[facility] HospitalIn the event this information is protected by the Federal Confidentiality of Alcohol and Drug Abuse Patient Records regulations: The Federal rules restrict any use of the information to criminally investigate or prosecute any alcohol or drug abuse patient.[facility] HospitalIn the event this information is protected by the Federal Confidentiality of Alcohol and Drug Abuse Patient Records regulations: The Federal rules restrict any use of the information to criminally investigate or prosecute any alcohol or drug abuse patient.[facility] HospitalIn the event this information is protected by the Federal Confidentiality of Alcohol and Drug Abuse Patient Records regulations: The Federal rules restrict any use of the information to criminally investigate or prosecute any alcohol or drug abuse patient.[facility] HospitalIn the event this information is protected by the Federal Confidentiality of Alcohol and Drug Abuse Patient Records regulations: The Federal rules restrict any use of the information to criminally investigate or prosecute any alcohol or drug abuse patient.[facility] HospitalIn the event this information is protected by the Federal Confidentiality of Alcohol and Drug Abuse Patient Records regulations: The Federal rules restrict any use of the information to criminally investigate or prosecute any alcohol or drug abuse patient.[facility] HospitalIn the event this information is protected by the Federal Confidentiality of Alcohol and Drug Abuse Patient Records regulations: The Federal rules restrict any use of the information to criminally investigate or prosecute any alcohol or drug abuse patient.[facility] HospitalIn the event this information is protected by the Federal Confidentiality of Alcohol and Drug Abuse Patient Records regulations: The Federal rules restrict any use of the information to criminally investigate or prosecute any alcohol or drug abuse patient.[facility] HospitalIn the event this information is protected by the Federal Confidentiality of Alcohol and Drug Abuse Patient Records regulations: The Federal rules restrict any use of the information to criminally investigate or prosecute any alcohol or drug abuse patient.[facility] HospitalIn the event this information is protected by the Federal Confidentiality of Alcohol and Drug Abuse Patient Records regulations: The Federal rules restrict any use of the information to criminally investigate or prosecute any alcohol or drug abuse patient.[facility] HospitalIn the event this information is protected by the Federal Confidentiality of Alcohol and Drug Abuse Patient Records regulations: The Federal rules restrict any use of the information to criminally investigate or prosecute any alcohol or drug abuse patient.[facility] HospitalIn the event this information is protected by the Federal Confidentiality of Alcohol and Drug Abuse Patient Records regulations: The Federal rules restrict any use of the information to criminally investigate or prosecute any alcohol or drug abuse patient.[facility] HospitalIn the event this information is protected by the Federal Confidentiality of Alcohol and Drug Abuse Patient Records regulations: The Federal rules restrict any use of the information to criminally investigate or prosecute any alcohol or drug abuse patient.[facility] HospitalIn the event this information is protected by the Federal Confidentiality of Alcohol and Drug Abuse Patient Records regulations: The Federal rules restrict any use of the information to criminally investigate or prosecute any alcohol or drug abuse patient.[facility] the event this information is protected by the Federal Confidentiality of Alcohol and Drug Abuse Patient Records regulations: The Federal rules restrict any use of the information to criminally investigate or prosecute any alcohol or drug abuse patient.[facility] HospitalIn the event this information is protected by the Federal Confidentiality of Alcohol and Drug Abuse Patient Records regulations: The Federal rules restrict any use of the information to criminally investigate or prosecute any alcohol or drug abuse patient.[facility] HospitalIn the event this information is protected by the Federal Confidentiality of Alcohol and Drug Abuse Patient Records regulations: The Federal rules restrict any use of the information to criminally investigate or prosecute any alcohol or drug abuse patient.[facility] HospitalIn the event this information is protected by the Federal Confidentiality of Alcohol and Drug Abuse Patient Records regulations: The Federal rules restrict any use of the information to criminally investigate or prosecute any alcohol or drug abuse patient.[facility] HospitalIn the event this information is protected by the Federal Confidentiality of Alcohol and Drug Abuse Patient Records regulations: The Federal rules restrict any use of the information to criminally investigate or prosecute any alcohol or drug abuse patient.[facility] HospitalIn the event this information is protected by the Federal Confidentiality of Alcohol and Drug Abuse Patient Records regulations: The Federal rules restrict any use of the information to criminally investigate or prosecute any alcohol or drug abuse patient.[facility] HospitalIn the event this information is protected by the Federal Confidentiality of Alcohol and Drug Abuse Patient Records regulations: The Federal rules restrict any use of the information to criminally investigate or prosecute any alcohol or drug abuse patient.[facility] HospitalIn the event this information is protected by the Federal Confidentiality of Alcohol and Drug Abuse Patient Records regulations: The Federal rules restrict any use of the information to criminally investigate or prosecute any alcohol or drug abuse patient.[facility] HospitalIn the event this information is protected by the Federal Confidentiality of Alcohol and Drug Abuse Patient Records regulations: The Federal rules restrict any use of the information to criminally investigate or prosecute any alcohol or drug abuse patient.[facility] HospitalIn the event this information is protected by the Federal Confidentiality of Alcohol and Drug Abuse Patient Records regulations: The Federal rules restrict any use of the information to criminally investigate or prosecute any alcohol or drug abuse patient.[facility] HospitalIn the event this information is protected by the Federal Confidentiality of Alcohol and Drug Abuse Patient Records regulations: The Federal rules restrict any use of the information to criminally investigate or prosecute any alcohol or drug abuse patient.[facility] HospitalIn the event this information is protected by the Federal Confidentiality of Alcohol and Drug Abuse Patient Records regulations: The Federal rules restrict any use of the information to criminally investigate or prosecute any alcohol or drug abuse patient.[facility] HospitalIn the event this information is protected by the Federal Confidentiality of Alcohol and Drug Abuse Patient Records regulations: The Federal rules restrict any use of the information to criminally investigate or prosecute any alcohol or drug abuse patient.[facility] HospitalIn the event this information is protected by the Federal Confidentiality of Alcohol and Drug Abuse Patient Records regulations: The Federal rules restrict any use of the information to criminally investigate or prosecute any alcohol or drug abuse patient.[facility] HospitalIn the event this information is protected by the Federal Confidentiality of Alcohol and Drug Abuse Patient Records regulations: The Federal rules restrict any use of the information to criminally investigate or prosecute any alcohol or drug abuse patient.[facility] HospitalIn the event this information is protected by the Federal Confidentiality of Alcohol and Drug Abuse Patient Records regulations: The Federal rules restrict any use of the information to criminally investigate or prosecute any alcohol or drug abuse patient.[facility] HospitalIn the event this information is protected by the Federal Confidentiality of Alcohol and Drug Abuse Patient Records regulations: The Federal rules restrict any use of the information to criminally investigate or prosecute any alcohol or drug abuse patient.[facility] HospitalIn the event this information is protected by the Federal Confidentiality of Alcohol and Drug Abuse Patient Records regulations: The Federal rules restrict any use of the information to criminally investigate or prosecute any alcohol or drug abuse patient.[facility] HospitalIn the event this information is protected by the Federal Confidentiality of Alcohol and Drug Abuse Patient Records regulations: The Federal rules restrict any use of the information to criminally investigate or prosecute any alcohol or drug abuse patient.[facility] HospitalIn the event this information is protected by the Federal Confidentiality of Alcohol and Drug Abuse Patient Records regulations: The Federal rules restrict any use of the information to criminally investigate or prosecute any alcohol or drug abuse patient.[facility] HospitalIn the event this information is protected by the Federal Confidentiality of Alcohol and Drug Abuse Patient Records regulations: The Federal rules restrict any use of the information to criminally investigate or prosecute any alcohol or drug abuse patient.[facility] HospitalIn the event this information is protected by the Federal Confidentiality of Alcohol and Drug Abuse Patient Records regulations: The Federal rules restrict any use of the information to criminally investigate or prosecute any alcohol or drug abuse patient.[facility] HospitalIn the event this information is protected by the Federal Confidentiality of Alcohol and Drug Abuse Patient Records regulations: The Federal rules restrict any use of the information to criminally investigate or prosecute any alcohol or drug abuse patient.[facility] HospitalIn the event this information is protected by the Federal Confidentiality of Alcohol and Drug Abuse Patient Records regulations: The Federal rules restrict any use of the information to criminally investigate or prosecute any alcohol or drug abuse patient.[facility] HospitalIn the event this information is protected by the Federal Confidentiality of Alcohol and Drug Abuse Patient Records regulations: The Federal rules restrict any use of the information to criminally investigate or prosecute any alcohol or drug abuse patient.[facility] HospitalIn the event this information is protected by the Federal Confidentiality of Alcohol and Drug Abuse Patient Records regulations: The Federal rules restrict any use of the information to criminally investigate or prosecute any alcohol or drug abuse patient.[facility] HospitalIn the event this information is protected by the Federal Confidentiality of Alcohol and Drug Abuse Patient Records regulations: The Federal rules restrict any use of the information to criminally investigate or prosecute any alcohol or drug abuse patient.[facility] HospitalIn the event this information is protected by the Federal Confidentiality of Alcohol and Drug Abuse Patient Records regulations: The Federal rules restrict any use of the information to criminally investigate or prosecute any alcohol or drug abuse patient.[facility] HospitalIn the event this information is protected by the Federal Confidentiality of Alcohol and Drug Abuse Patient Records regulations: The Federal rules restrict any use of the information to criminally investigate or prosecute any alcohol or drug abuse patient.[facility] HospitalIn the event this information is protected by the Federal Confidentiality of Alcohol and Drug Abuse Patient Records regulations: The Federal rules restrict any use of the information to criminally investigate or prosecute any alcohol or drug abuse patient.[facility] HospitalIn the event this information is protected by the Federal Confidentiality of Alcohol and Drug Abuse Patient Records regulations: The Federal rules restrict any use of the information to criminally investigate or prosecute any alcohol or drug abuse patient.[facility] HospitalIn the event this information is protected by the Federal Confidentiality of Alcohol and Drug Abuse Patient Records regulations: The Federal rules restrict any use of the information to criminally investigate or prosecute any alcohol or drug abuse patient.[facility] HospitalIn the event this information is protected by the Federal Confidentiality of Alcohol and Drug Abuse Patient Records regulations: The Federal rules restrict any use of the information to criminally investigate or prosecute any alcohol or drug abuse patient.[facility] HospitalIn the event this information is protected by the Federal Confidentiality of Alcohol and Drug Abuse Patient Records regulations: The Federal rules restrict any use of the information to criminally investigate or prosecute any alcohol or drug abuse patient.[facility] HospitalIn the event this information is protected by the Federal Confidentiality of Alcohol and Drug Abuse Patient Records regulations: The Federal rules restrict any use of the information to criminally investigate or prosecute any alcohol or drug abuse patient.[facility] HospitalIn the event this information is protected by the Federal Confidentiality of Alcohol and Drug Abuse Patient Records regulations: The Federal rules restrict any use of the information to criminally investigate or prosecute any alcohol or drug abuse patient.[facility] HospitalIn the event this information is protected by the Federal Confidentiality of Alcohol and Drug Abuse Patient Records regulations: The Federal rules restrict any use of the information to criminally investigate or prosecute any alcohol or drug abuse patient.[facility] HospitalIn the event this information is protected by the Federal Confidentiality of Alcohol and Drug Abuse Patient Records regulations: The Federal rules restrict any use of the information to criminally investigate or prosecute any alcohol or drug abuse patient.[facility] HospitalIn the event this information is protected by the Federal Confidentiality of Alcohol and Drug Abuse Patient Records regulations: The Federal rules restrict any use of the information to criminally investigate or prosecute any alcohol or drug abuse patient.[facility] HospitalIn the event this information is protected by the Federal Confidentiality of Alcohol and Drug Abuse Patient Records regulations: The Federal rules restrict any use of the information to criminally investigate or prosecute any alcohol or drug abuse patient.[facility] HospitalIn the event this information is protected by the Federal Confidentiality of Alcohol and Drug Abuse Patient Records regulations: The Federal rules restrict any use of the information to criminally investigate or prosecute any alcohol or drug abuse patient.[facility] HospitalIn the event this information is protected by the Federal Confidentiality of Alcohol and Drug Abuse Patient Records regulations: The Federal rules restrict any use of the information to criminally investigate or prosecute any alcohol or drug abuse patient.[facility] HospitalIn the event this information is protected by the Federal Confidentiality of Alcohol and Drug Abuse Patient Records regulations: The Federal rules restrict any use of the information to criminally investigate or prosecute any alcohol or drug abuse patient.[facility] HospitalIn the event this information is protected by the Federal Confidentiality of Alcohol and Drug Abuse Patient Records regulations: The Federal rules restrict any use of the information to criminally investigate or prosecute any alcohol or drug abuse patient.[facility] HospitalIn the event this information is protected by the Federal Confidentiality of Alcohol and Drug Abuse Patient Records regulations: The Federal rules restrict any use of the information to criminally investigate or prosecute any alcohol or drug abuse patient.[facility] HospitalIn the event this information is protected by the Federal Confidentiality of Alcohol and Drug Abuse Patient Records regulations: The Federal rules restrict any use of the information to criminally investigate or prosecute any alcohol or drug abuse patient.[facility] HospitalIn the event this information is protected by the Federal Confidentiality of Alcohol and Drug Abuse Patient Records regulations: The Federal rules restrict any use of the information to criminally investigate or prosecute any alcohol or drug abuse patient.[facility] HospitalIn the event this information is protected by the Federal Confidentiality of Alcohol and Drug Abuse Patient Records regulations: The Federal rules restrict any use of the information to criminally investigate or prosecute any alcohol or drug abuse patient.[facility] HospitalIn the event this information is protected by the Federal Confidentiality of Alcohol and Drug Abuse Patient Records regulations: The Federal rules restrict any use of the information to criminally investigate or prosecute any alcohol or drug abuse patient.[facility] HospitalIn the event this information is protected by the Federal Confidentiality of Alcohol and Drug Abuse Patient Records regulations: The Federal rules restrict any use of the information to criminally investigate or prosecute any alcohol or drug abuse patient.[facility] the event this information is protected by the Federal Confidentiality of Alcohol and Drug Abuse Patient Records regulations: The Federal rules restrict any use of the information to criminally investigate or prosecute any alcohol or drug abuse patient.[facility] HospitalIn the event this information is protected by the Federal Confidentiality of Alcohol and Drug Abuse Patient Records regulations: The Federal rules restrict any use of the information to criminally investigate or prosecute any alcohol or drug abuse patient.[facility] HospitalIn the event this information is protected by the Federal Confidentiality of Alcohol and Drug Abuse Patient Records regulations: The Federal rules restrict any use of the information to criminally investigate or prosecute any alcohol or drug abuse patient.[facility] HospitalIn the event this information is protected by the Federal Confidentiality of Alcohol and Drug Abuse Patient Records regulations: The Federal rules restrict any use of the information to criminally investigate or prosecute any alcohol or drug abuse patient.[facility] HospitalIn the event this information is protected by the Federal Confidentiality of Alcohol and Drug Abuse Patient Records regulations: The Federal rules restrict any use of the information to criminally investigate or prosecute any alcohol or drug abuse patient.[facility] Reason for Visit (unrecogniz ed section and content) Reason Comments Radiology CT Specialty Diagnoses / Procedures Referred By Contac t Referred To Contact CT IMAGING Diagnoses Lung nodules Procedures CT CHEST WO IVCON DIAGNOSTIC COMPUTED TOMOGRAPHY THORAX W/O CNTRST Dionicio Brower MD [address] [place] [address] Ct [facility] [place] [address] Referral ID Status Reason Start Date Expiration Date V isits Requested Visits Authorized [id number] Closed Auto-Generate d Referral 05/28/2023 08/26/2023 1 1 Reason Comments Hand Pain R hand pain Specialty Diagnoses / Procedures Referred By Contac t Referred To Contact FAMILY MEDICINE Diagnoses followup Procedures follow up Self [facility] [address] [place] [address] Referral ID Status Reason Start Date Expiration Date Visits Requested Visits Authorized [id number] Authorized Financial Clearance Required - Self Pay Patient Cleared - Qualified HCAP/501/FA 02/13/2022 05/14/2022 99 99 Specialty Diagnoses / Procedures Referred By Contac t Referred To Contact Family Practice / URGENT CARE CLINIC Diagnoses cold like symptoms/fever Procedures URGENT CARE Self Chio Vale APRN.MEAT WASHER [address] [place] [address] Referral ID Status Reason Start Date Expiration Date Visits Requested Visits Authorized [id number] Authorized Financial Clearance Required - Self Pay Patient Cleared - Qualified HCAP/501/FA 05/13/2021 08/11/2021 99 99 Reason Comments Results Reason Onset Date Comments Erroneous encounter-disregard 08/20/2021 Reason Onset Date Comments Refill Request 09/01/2021 Specialty Diagnoses / Procedures Referred By Contac t Referred To Contact Family Practice / FAMILY MEDICINE Diagnoses coping issues Procedures 4C EST Self Rudy Lugo PA-C [address] [place] [address] Referral ID Status Reason Start Date Expiration Date Visits Requested Visits Authorized [id number] Authorized Financial Clearance Required - Self Pay Patient Cleared - Qualified HCAP/501/FA 09/08/2021 12/07/2021 99 99 Reason Comments Head Injury Reason Onset Date Comments Refill Request 09/22/2021 Reason Comments Recheck Specialty Diagnoses / Procedures Referred By Contac t Referred To Contact Family Practice / FAMILY MEDICINE Diagnoses coping issues Procedures 4C EST Self Rudy Lugo PA-C [address] [place] [address] Reason Comments Appointment Reason Onset Date Comments Refill Request 10/27/2021 Reason Comments Medication Problem Reason Onset Date Comments Refill Request 11/05/2021 Reason Comments Head Congestion cough, vomiting and bodyaches, right ear pain x 3 days Specialty Diagnoses / Procedures Referred By Contac t Referred To Contact [facility] Diagnoses possible flu - took home COVID test it was positive Procedures possible flu - took home COVID test it was positive Cole Frazier MD [address] [place] [address] [facility] [address] [place] [address] Referral ID Status Reason Start Date Expiration Date Visits Requested Visits Authorized [id number] Pending Review Financial Clearance Required - Self [...] MEDICINE Diagnoses followup Procedures [facility] [address] [place] [address] Reason Comments Ear Pain R ear pain, [...] wrist pain Procedures CONSULT TO ORTHOPAEDICS OFFICE/OUTPATIENT [facility] 60 MINUTES Dionicio Brower MD [address] [place] [address] Referral ID Status Reason Start Date Expiration Date V isits Requested Visits Authorized [id number] Closed PCP Requested Referral 05/25/2023 05/24/2024 1 [...] URGENT CARE Self Chio Vale APRN.DAVID [address] [place] [address] Referral ID Status Reason Start Date Expiration Date V isits Requested Visits Authorized [id number] Closed Financial Clearance Required - Self Pay [...] test Procedures CONSULT TO GENERAL SURGERY OFFICE/OUTPATIENT [facility] MDM 60 MINUTES Dionicio Brower MD [address] [place] [id number] Referral ID Status Reason Start Date Expiration Date V isits Requested Visits Authorized [id number] Closed PCP Requested Referral 06/02/2024 06/02/2025 1 [...] not intractable Procedures CONSULT TO NEUROLOGY OFFICE/OUTPATIENT [facility] MDM 60 MINUTES Dionicio Brower MD [address] [place] [address] Phone: tel: fax: Referral ID Status Reason Start Date Expiration Date V isits Requested Visits Authorized [id number] Closed PCP Requested Referral 07/19/2024 07/19/2025 1 1 Reason Onset Date Comments Refill Request 11/12/2024 Reason Onset Date Comments Refill Request 11/22/2024 Reason Comments Follow Up Migraines Reason Comments PAs submitted Care Teams (unrecognized sec tion and content) Butcher Scullion Relationship Specialty Start Date End Date Dionicio Brower MD [address] [place] [address] PCP - General Family Practice 07/10/13 Butcher Scullion Relationship Specialty Start Date End Date Dionicio Brower MD [address] [place] [address] PCP - General Family Practice 07/10/13 Butcher Scullion Relationship Specialty Start Date End Date Dionicio Brower MD [address] [place] [address] PCP - General Family Practice 07/10/13 Butcher Scullion Relationship Specialty Start Date End Date Dionicio Brower MD [address] [place] [address] PCP - General Family Practice 07/10/13 Butcher Scullion Relationship Specialty Start Date End Date Dionicio Brower MD [address] [place] [address] PCP - General Family Practice 07/10/13 Butcher Scullion Relationship Specialty Start Date End Date Dionicio Brower MD [address] [place] [address] PCP - General Family Practice 07/10/13 Butcher Scullion Relationship Specialty Start Date End Date Dionicio Brower MD [address] [place] [address] PCP - General Family Practice 07/10/13 Butcher Scullion Relationship Specialty Start Date End Date Dionicio Brower MD [address] [place] [address] PCP - General Family Practice 07/10/13 Butcher Scullion Relationship Specialty Start Date End Date Dionicio Brower MD [address] [place] [address] PCP - General Family Practice 07/10/13 Butcher Scullion Relationship Specialty Start Date End Date Dionicio Brower MD [address] [place] [address] PCP - General Family Practice 07/10/13 Butcher Scullion Relationship Specialty Start Date End Date Dionicio Brower MD [address] [place] [address] PCP - General Family Practice 07/10/13 Butcher Scullion Relationship Specialty Start Date End Date Dionicio Brower MD [address] [place] [address] PCP - General Family Practice 07/10/13 Butcher Scullion Relationship Specialty Start Date End Date Dionicio Brower MD [address] [place] [address] PCP - General Family Practice 07/10/13 Butcher Scullion Relationship Specialty Start Date End Date Dionicio Brower MD [address] [place] [address] PCP - General Family Practice 07/10/13 Butcher Scullion Relationship Specialty Start Date End Date Dionicio Brower MD [address] [place] [address] PCP - General Family Medicine 07/10/13 Butcher Scullion Relationship Specialty Start Date End Date Dionicio Brower MD [address] [place] [address] PCP - General Family Medicine 07/10/13 Butcher Scullion Relationship Specialty Start Date End Date Dionicio Brower MD [address] [place] [address] PCP - General Family Medicine 07/10/13 Butcher Scullion Relationship Specialty Start Date End Date Dionicio Brower MD [address] [place] [address] PCP - General Family Medicine 07/10/13 Butcher Scullion Relationship Specialty Start Date End Date Dionicio Brower MD [address] [place] [address] PCP - General Family Medicine 07/10/13 Butcher Scullion Relationship Specialty Start Date End Date Dionicio Brower MD [address] [place] [address] PCP - General Family Medicine 07/10/13 Butcher Scullion Relationship Specialty Start Date End Date Dionicio Brower MD [address] [place] [address] PCP - General Family Medicine 07/10/13 Butcher Scullion Relationship Specialty Start Date End Date Dionicio Brower MD [address] [place] [address] PCP - General Family Medicine 07/10/13 Butcher Scullion Relationship Specialty Start Date End Date Dionicio Brower MD [address] [place] [address] PCP - General Family Medicine 07/10/13 Butcher Scullion Relationship Specialty Start Date End Date Dionicio Brower MD [address] [place] [address] PCP - General Family Medicine 07/10/13 Butcher Scullion Relationship Specialty Start Date End Date Dionicio Brower MD [address] [place] [address] PCP - General Family Medicine 07/10/13 Butcher Scullion Relationship Specialty Start Date End Date Dionicio Brower MD [address] [place] [address] PCP - General Family Medicine 07/10/13 Butcher Scullion Relationship Specialty Start Date End Date Dionicio Brower MD [address] [facility], [place] [address] PCP - General Family Medicine 07/10/13 Butcher Scullion Relationship Specialty Start Date End Date Dionicio Brower MD [address] [place] [address] PCP - General Family Medicine 07/10/13 Butcher Scullion Relationship Specialty Start Date End Date Dionicio Brower MD [address] [place] [address] PCP - General Family Medicine 07/10/13 Butcher Scullion Relationship Specialty Start Date End Date Dionicio Brower MD [address] [place] [address] PCP - General Family Medicine 07/10/13 Butcher Scullion Relationship Specialty Start Date End Date Dionicio Brower MD [address] [place] [address] PCP - General Family Medicine 07/10/13 Butcher Scullion Relationship Specialty Start Date End Date Dionicio Brower MD [address] [place] [address] PCP - General Family Medicine 07/10/13 Team [...] Newby MD Attending Provider, Emergency Provider Active Butcher Scullion Relationship Specialty Start Date End Date Dionicio Brower MD [address] [facility], [place] [address] PCP - General Family Medicine 07/10/13 Butcher Scullion Relationship Specialty Start Date End Date Dionicio Brower MD [address] [place] [address] PCP - General Family Medicine 07/10/13 Butcher Scullion Relationship Specialty Start Date End Date Dionicio Brower MD [address] [place] [address] PCP - General Family Medicine 07/10/13 Butcher Scullion Relationship Specialty Start Date End Date Dionicio Brower MD [address] [place] [address] PCP - General Family Medicine 07/10/13 Butcher Scullion Relationship Specialty Start Date End Date Dionicio Brower MD [address] [place] [address] PCP - General Family Medicine 07/10/13 Butcher Scullion Relationship Specialty Start Date End Date Dionicio Brower MD [address] [place] [address] PCP - General Family Medicine 07/10/13 Butcher Scullion Relationship Specialty Start Date End Date Dionicio Brower MD [address] [place] [address] PCP - General Family Medicine 07/10/13 Butcher Scullion Relationship Specialty Start Date End Date Dionicio Brower MD [address] [place] [address] PCP - General Family Medicine 07/10/13 Butcher Scullion Relationship Specialty Start Date End Date Dionicio Brower MD [address] [facility] [place] [place] [address] PCP - General Family Medicine 07/10/13 Butcher Scullion Relationship Specialty Start Date End Date Dionicio Brower MD [address] [place] [address] PCP - General Family Medicine 07/10/13 Butcher Scullion Relationship Specialty Start Date End Date Dionicio Brower MD [address] [place] [address] PCP - General Family Medicine 07/10/13 Butcher Scullion Relationship Specialty Start Date End Date Dionicio Brower MD [address] [place] [address] PCP - General Family Medicine 07/10/13 Butcher Scullion Relationship Specialty Start Date End Date Dionicio Brower MD [address] [place] [address] PCP - General Family Medicine 07/10/13 Butcher Scullion Relationship Specialty Start Date End Date Dionicio Brower MD [address] [place] [address] PCP - General Family Medicine 07/10/13 Butcher Scullion Relationship Specialty Start Date End Date Dionicio Brower MD [address] [place] [address] PCP - General Family Medicine 07/10/13 Butcher Scullion Relationship Specialty Start Date End Date Dionicio Brower MD [address] [place] [address] PCP - General Family Medicine 07/10/13 Bruna Parker, ILIR.MEAT WASHER [address] [facility] [address] Compressor Assembler Family Medicine 04/17/24 Debbie Pop APRN.MEAT WASHER [address] [place] [address] Compressor Assembler Family Medicine 04/17/24 Butcher Scullion Relationship Specialty Start Date End Date Dionicio Brower MD [address] [place] [address] PCP - General Family Medicine 07/10/13 Bruna Parker APRN.MEAT WASHER [address] [place] [address] Compressor Assembler Family Medicine 04/17/24 Debbie Pop APRN.MEAT WASHER [address] [place] [address] Compressor Assembler Family Medicine 04/17/24 Butcher Scullion Relationship Specialty Start Date End Date Dionicio Brower MD [address] [place] [address] PCP - General Family Medicine 07/10/13 Bruna Parker APRN.MEAT WASHER [address] [place] [address] Compressor Assembler Family Medicine 04/17/24 Debbie Pop APRN.MEAT WASHER [address] [place] [address] Compressor Assembler Family Medicine 04/17/24 Butcher Scullion Relationship Specialty Start Date End Date Dionicio Brower MD [address] [place] [address] PCP - General Family Medicine 07/10/13 Bruna Parker APRN.MEAT WASHER [address] [place] [address] Compressor Assembler Family Medicine 04/17/24 Debbie Pop APRN.MEAT WASHER [address] [place] [address] Compressor Assembler Family Medicine 04/17/24 Butcher Scullion Relationship Specialty Start Date End Date Dionicio Brower MD [address] [place] [address] PCP - General Family Medicine 07/10/13 Bruna Parker APRN.MEAT WASHER [address] [place] [address] Compressor Assembler Family Medicine 04/17/24 Debbie Pop APRN.MEAT WASHER [address] [place] [address] Compressor Assembler Family Medicine 04/17/24 Butcher Scullion Relationship Specialty Start Date End Date Dionicio Brower MD [address] [place] [address] PCP - General Family Medicine 07/10/13 Bruna Parker APRN.MEAT WASHER [address] [place] [address] Compressor Assembler Family Medicine 04/17/24 Debbie Pop APRN.MEAT WASHER [address] [place] [address] Compressor Assembler Family Medicine 04/17/24 Butcher Scullion Relationship Specialty Start Date End Date Dionicio Brower MD [address] [place] [address] PCP - General Family Medicine 07/10/13 Bruna Parker SENIOR DIGITAL DESIGNER.MEAT WASHER [address] [place] [address] [facility] 04/[facility]/24 Debbie Pop SENIOR DIGITAL DESIGNER.MEAT WASHER [address] [place] [address] [facility] 04/17/24 Butcher Scullion Relationship Specialty Start Date End Date Dionicio Brower MD [address] [place] [address] PCP - General Family Medicine 07/10/13 Bruna Parker SENIOR DIGITAL DESIGNER.MEAT WASHER [address] [place] [address] [facility] 04/17/24 Debbie Pop SENIOR DIGITAL DESIGNER.MEAT WASHER [address] [place] [address] [facility] 04/17/24 Butcher Scullion Relationship Specialty Start Date End Date Dionicio Brower MD [address] [place] [address] PCP - General Family Medicine 07/10/13 Bruna Parker SENIOR DIGITAL DESIGNER.MEAT WASHER [address] [facility] [place] [address] [facility] 04/17/24 Debbie Pop APRN.MEAT WASHER [address] [place] [address] Compressor Assembler Family Medicine 04/17/24 Butcher Scullion Relationship Specialty Start Date End Date Dionicio Brower MD [address] [place] [address] PCP - General Family Medicine 07/10/13 Bruna Parker APRN.MEAT WASHER [address] [place] [address] Compressor Assembler Family Medicine 04/17/24 Debbie Pop APRN.MEAT WASHER [address] [place] [address] [facility] 04/17/24 Butcher Scullion Relationship Specialty Start Date End Date Dionicio Brower MD [address] [place] [address] PCP - General Family Medicine 07/10/13 Bruna Parker SENIOR DIGITAL DESIGNER.MEAT WASHER [address] [place] [address] Compressor Assembler Family Medicine 04/17/24 Debbie Pop APRN.MEAT WASHER [address] [place] [address] Compressor Assembler Family Medicine 04/17/24 Butcher Scullion Relationship Specialty Start Date End Date Dionicio Brower MD [address] [place] [address] PCP - General Family Medicine 07/10/13 Bruna Parker SENIOR DIGITAL DESIGNER.MEAT WASHER [address] [place] [address] [facility] 04/17/24 Debbie Pop APRN.MEAT WASHER [address] [place] [address] [facility] 04/17/24 Butcher Scullion Relationship Specialty Start Date End Date Dionicio Brower MD [address] [place] [address] PCP - General Family Medicine 07/10/13 Bruna Parker APRN.MEAT WASHER [address] [place] [address] [facility] 04/17/24 Debbie Pop APRN.MEAT WASHER [address] [place] [address] [facility] 04/17/24 Butcher Scullion Relationship Specialty Start Date End Date Dionicio Brower MD [address] [place] [address] PCP - General Family Medicine 07/10/13 Bruna Parker APRN.MEAT WASHER [address] [place] [address] [facility] 04/17/24 Debbie Pop APRN.MEAT WASHER [address] [place] [address] [facility] 04/17/24 Goals (unrecognized section and content) Goals [...] BE BASED ON THE PRIMARY CLINICAL RECORDS. [facility]. provides no warranty or guarantee of the accuracy or completeness of information in this document.
[2025-04-18] MEDS: 0.9% Normal Saline (1000mL) 1,000 ML 999 ML IV (04:49)
[2025-04-18 04:56] LABS: Hematocrit 42.4 % (37-47); Hemoglobin 14.5 g/dL (12.0-15.0); Immature Granulocytes Count 0.020 X10^3/uL (0.0-0.0); Mean Corp Hgb Conc 34.2 g/dL (32-36); Mean Corpuscular Volume 96.8 fL (81-99); Mean Platelet Vol. 10.4 fl (6.2-12.0); NRBC Flagged by Analyzer 0 % (0-5); Platelet Count 291 K/mm3 (150-450); RBC Distribution Width CV 13.1 % (11.6-14.6); RBC Distribution Width SD 46.6 fl (35.1-43.9); Red Blood Count 4.38 M/mm3 (4.2-5.4); White Blood Count 8.7 K/mm3 (4.4-11.0)
[2025-04-18 04:59] LABS: Partial Thromboplast Time 22.8 Seconds (24.1-36.2); Prothrombin Time (Protime)PT. 13.4 SECONDS (11.7-14.9)
--- NOTE | 2025-04-18 05:02 | EX.ED.DYSGE1 ---
HPI History of Present Illness Chief Complaint: Back Informant: patient, family and EMS Narrative Narrative: Patient is a 49 female with past medical history of chronic low back pain and degenerative disc disease. She also has fibromyalgia as well as bipolar disorder. Patient is currently on baclofen and gabapentin to help with chronic pain. She was seen on April 16 secondary to back pain which is more left-sided and radiated down the left leg. At that time it was felt her back pain was an exacerbation of her chronic symptoms and she felt better after provided medication was discharged home. The patient's been taking her baclofen and gabapentin and [place] was added. The patient states that despite taking these the pain has been persistent. She states that she is essentially just been lying in bed for the past 2 days secondary to the persistent pain. She states there is been no loss of bowel or bladder control and she denies any IV drug use. She also denies any recent injections in the low back or surgical procedures. She does state that her left leg has felt cold since returning home which she states she has had circulation issues in the past. Therefore as the patient has been having persistent left-sided back pain that radiates into the left leg without symptom improvement while taking her baclofen and gabapentin and [place] she presents for reevaluation. She does state that since returning home there has been no injury/fall [facility] Medical History Marijuana smoker Psoriasis Psoriasis Fibromyalgia Migraines Kidney stones Hypokalemia Bipolar 1 disorder History of venous thromboembolism Home Medications ?Medication ?Instructions ?Recorded ?Last Taken ?Type baclofen 10 mg tablet 10 mg PO TID BACK PAIN 04/27/19 02/01/23 History sumatriptan succinate 100 mg tablet 100 mg PO .X1 PRN 04/26/20 01/31/23 History hydrocodone-acetaminophen 5-325mg 1 tab PO Q6H PRN PRN Pain 3 days 03/17/25 04/18/25 01:30 Rx 5mg-325mg #10 TABLETS pregabalin 50 mg capsule 50 mg PO BID 04/16/25 Unknown History oxycodone 5 mg tablet 5 mg PO Q6H PRN pain 3 days #12 04/18/25 Unknown Rx tabs Allergy/AdvReac Type Severity Reaction Status Date / Time Cephalosporins Allergy Severe Anaphylaxis Verified 04/18/25 04:15 adhesive tape Allergy Swelling Verified 04/18/25 04:15 Penicillins Allergy Anaphylaxis Verified 04/18/25 04:15 bupropion (From Wellbutrin) AdvReac Other Verified 04/18/25 04:15 diphenhydramine HCl (From AdvReac IV route Verified 04/18/25 04:15 Benadryl) causes panic attack. can take po Surgical History H/O: hysterectomy Social History Smoking Status: Current every day smoker tobacco type: cigarettes and e-cigarettes substance use type: does not use ROS ROS ED Constitutional Constitutional ED: Denies chills or fever(s) Cardiovascular Cardiovascular: Denies chest pain Respiratory/Chest Respiratory/Chest: Denies cough or dyspnea Gastrointestinal Gastrointestinal: Denies abdominal pain, diarrhea, nausea or vomiting Genitourinary Genitourinary ED: Denies dysuria, hematuria or urinary frequency Musculoskeletal Musculoskeletal: Reports back pain and other Details: Positive left leg pain Integumentary Denies Abrasions or rash Neurologic Neurologic: Reports paresthesias; Denies headache(s) Hematologic/Lymphatic Hematologic/Lymphatic: Denies easy bleeding or easy bruising EXAM Physical Exam Const Vital Signs: 04/18/25 04:12 04/18/25 06:00 Temperature 98.4 F Temperature Source Oral Pulse Rate 113 H 94 Respiratory Rate 20 H 18 Blood Pressure 166/67 H 163/111 H Blood Pressure Mean 100 128 Pulse Ox 100 98 Oxygen Delivery Method Room Air Room Air Positive well nourished, well developed and obese General Appearance ED: well developed Nutritional Appearance: obese HEENT HEENT Narrative: Normocephalic atraumatic Eyes PERRL and EOMs intact bilaterally General Eye ED: Negative for scleral icterus Neck supple Resp normal respiratory effort and clear to auscultation bilaterally Cardio regular rhythm Rate: tachycardic and other Other Details: Tachycardic rate with regular rhythm Radial and carotid pulses are equal and symmetric GI non-tender, non-distended and no masses GI Narrative: Abdomen is soft nontender and nondistended with hypoactive bowel sounds No voluntary guarding or rigidity or pulsatile mass No peritoneal signs Auscultation: hypoactive bowel sounds Palpation: soft Back/Spine no CVA tenderness Back/Spine Narrative: No bony deformity or step-off of the thoracic or lumbar spine No midline pain with palpation No CVA pain There is tension and spasm and pain on palpation along the left paralumbar muscle belly region No overlying soft tissue skin changes to suggest trauma or infection No saddle anesthesia. Negative straight leg raise on right and positive straight leg raise on left at approximately 45 degrees. no clonus or Babinski. Patellar reflexes are plus 1 out of 4 bilaterally. Extremity Extremity Narrative: No obvious bony deformity or joint effusion No signs of long bone injury All compartments are soft and compressible going against compartment syndrome Active range of motion the left leg is decreased secondary to pain There is asymmetric coolness of the left lower leg starting at the distal third of the left carroll extending down into the left foot and toes when compared to the right. Capillary refill of the left foot/toes is slightly prolonged at 4 seconds while right is normal Normal palpable pulses in the posterior tibial and dorsalis pedis on right. Palpable pulses of the left lower extremity are difficult to obtain but with Doppler she does have a strong dorsalis pedis and posterior tibial pulses well Neuro oriented x3 and CN's II-XII intact bilaterally Sensorium / Orientation: alert Psych Mood & Affect: anxious and tearful Skin no rashes or lesions noted and no wounds Skin Narrative: Coolness of the left lower leg beginning around the distal third of the left carroll extending to the foot/toes as documented above with slightly prolonged capillary refill of 4 seconds Otherwise no erythema or asymmetric warmth no abrasions or ecchymosis General Skin Exam: Negative for jaundice MDM MDM MDM Narrative Medical decision making narrative: Patient arrived to the ER hypertensive and slightly tachycardic but is in pain and chart review reveals that these vitals are consistent with her last evaluation. The patient denied any recent trauma and there are no abrasions or ecchymosis present on exam which would correlate with this statement and therefore I have low concern for a potential compression fracture or burst fracture. She denied loss of bowel or bladder control or IV drug use going against cauda equina or epidural abscess. She also states has been no recent injections or procedures to suggest osteomyelitis or discitis. On my physical exam however she did have coolness of the left lower leg essentially along the distal third of the carroll extending towards the toes and delayed capillary refill. Because of this I had concern that the pain may be related to the acute arterial occlusion. I was however able to Doppler both a posterior tibial and dorsalis pedis pulse on the right and left. The patient's labs revealed no leukocytosis or left shift and there is no elevation to the ESR CRP which would go against infectious process. The CTA with runoff did talk about a distended gallbladder without findings of acute cholecystitis and this would correlate with her normal white count and temperature and the fact that her pain is on the completely opposite side and radicular nature would not correlate with any type of acute cholecystitis. 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 This could correlate with her foot/ankle pain and coolness. However it goes against the fact that I was able to Doppler a pulse in the left foot. Because of this read I did discuss the case with the vascular surgeon Dr. Mathew. He states that single occlusive artery is very atypical and he will review the images on his own and then contact me with his treatment recommendation. Dr. Mathew reviewed the CTA and disagrees with the radiologist regarding occlusion of the left dorsalis pedis artery and states that the vessels all look clean and open to him which would correlate with my exam that I can Doppler a dorsalis pedis pulse on the right and left as well as posterior tibial pulse on each. Therefore this time as we confirmed there is no sign of acute arterial occlusion and she does not have risk factors for cauda equina or epidural abscess or osteomyelitis/discitis I do not feel there is need for further intervention. She did receive Dilaudid as well as Haldol and Ativan and had improvement of her pain and was sleeping on my reevaluation. Therefore with overall negative workup and improvement of pain she is otherwise safe for discharge. History & Record Review Discussion w/independent historian: EMS personnel, Patient and Family Additional record(s) reviewed:: Prior ED visit Lab Data Attestation: I reviewed the patient's lab results. Labs: Laboratory Results - last 24 hr 04/18/25 04:40 WBC 8.7 RBC 4.38 Hgb 14.5 Hct 42.4 MCV 96.8 MCH 33.1 H MCHC 34.2 RDW Std Deviation 46.6 H RDW Coeff of Flavia 13.1 Plt Count 291 MPV 10.4 Immature Gran % (Auto) 0.200 Neut % (Auto) 67.5 Lymph % (Auto) 25.5 [place] % (Auto) 6.3 Eos % (Auto) 0.2 Baso % (Auto) 0.3 Absolute Neuts (auto) 5.9 Absolute Lymphs (auto) 2.23 Nucleated RBC % 0 ESR 5 PT 13.4 INR 1.0 APTT 22.8 L Sodium 142 Potassium 3.0 L Chloride 105 Carbon Dioxide 22.2 Anion Gap 15 BUN 10 Creatinine 0.67 L Estim Creat Clear Calc 123.43 Est GFR (MDRD) Non-Af 108 BUN/Creatinine Ratio 14.4 Glucose 123 H Lactic Acid 1.5 Calcium 9.6 C-React Prot Ext Range 3.01 H Radiography Diagnostic Testing: Clinical Impression(s) from Imaging Studies Abdomen/Pelvis CTA 04/18/25 04:33 IMPRESSION: Distended gallbladder without CT evidence of acute cholecystitis. Mildly dilated extrahepatic biliary tree. Bilateral nonobstructing renal stones with the largest measuring 4 mm. Mild calcified atheromatous plaques of the aorta. Occluded left dorsalis pedis artery. No significant stenosis of bilateral common iliac, external iliac, internal iliac, common femoral, superficial femoral, deep femoral, popliteal, posterior tibial, anterior tibial, peroneal and right dorsalis pedis arteries. Reading Location: [place] [id number] Management Discussion w/another healthcare provider: Boat Dispatcher Discharge Plan Triage Chief Complaint: Back ED Provider: Akbar Best Dx/Rx/DC Orders Clinical Impression: Acute exacerbation of chronic low back pain, Fibromyalgia, Bipolar disorder Instructions: ED Back Pain (Acute or Chronic), ED Back Sprain/Strain Prescriptions: New oxycodone 5 mg tablet 5 mg PO Q6H PRN (Reason: pain) 3 Days Qty: 12 0RF No Action baclofen 10 MG tablet 10 mg PO TID Patient Comments: Take 1 tablet by mouth three times daily. sumatriptan succinate 100 MG tablet 100 mg PO .X1 PRN hydrocodone-acetaminophen 5-325 mg tablet 1 tab PO Q6H PRN PRN (Reason: Pain) 3 Days Qty: 10 0RF pregabalin 50 mg capsule 50 mg PO BID Primary Care Provider: Dionicio Armijo Referrals: Dionicio Armijo MD [Primary Care Provider, Medical] Activity Restrictions/Additional Instructions: Your labs revealed no clinically significant findings and the CTA of your back revealed no sign of decreased or blocked blood flow. Continue your Lyrica and gabapentin. Stop the hydrocodone/[place] that was given at your previous visit and begin taking the oxycodone that was prescribed today for improved pain control. You need to continue to get up and move and stretch to help reduce pain and speed healing. Follow-up with your family doctor to discuss outpatient MRI to further assess any potential cause of your recurrent back pain such as spinal stenosis or ruptured disc. Return to the ER should you have any further concern Print Language: Polish Disposition Disposition: Home, Self Care
[2025-04-18 05:11] LABS: CRP 3.01 mg/L (0.0-3.0)
[2025-04-18 05:14] LABS: Anion Gap 15 (5-15); BUN 10 mg/dL (4-19); BUN/Creat Ratio 14.4 RATIO (10-20); Calcium,Total 9.6 mg/dL (7.6-11.0); Carbon Dioxide 22.2 mmol/L (21.0-32.0); Chloride 105 mmol/L (98-108); Estimated Creatinine Clearance 123.43 ml/min (50-250); Glucose 123 mg/dL (70-99); Potassium 3.0 mmol/L (3.3-5.1)
[2025-04-18 06:00] VITALS: BP 163/111; PULSE 94; RESP 18; O2SAT 98
[2025-04-18 07:19] VITALS: BP 158/102; PULSE 79; RESP 16; TEMP 36.6; O2SAT 95
== END 2025-04-18 07:55 | disposition home or self-care (01) ==
PROVIDERS: Emergency Provider Emergency Medicine; PCP Family Medicine; Visit Provider Emergency Medicine
DX: M54.50 Low back pain, unspecified (principal); F31.9 Bipolar disorder, unspecified; G89.29 Other chronic pain; M79.7 Fibromyalgia; F17.210 Nicotine dependence, cigarettes, uncomplicated; F17.290 Nicotine dependence, other tobacco product, uncomplicated
CPT/HCPCS: 75635; 80048; 83605; 85025; 85610; 85652; 85730; 86140; 96361; 96374; 96375; 96376; 99284; Q9967; A4216; J2405